=== PATIENT | male | born 1965 | race Hispanic/Latino ===

== ENCOUNTER 2018-02-23 10:09 | Emergency (ER) | payer OTHER ==
--- NOTE | 2018-02-23 10:22 | ER ---
Nurse's Notes [facility] Name: Nabor Barrow Jr Age: 53 yrs Sex: Male : 1965 Arrival Date: 02/23/2018 Time: 10:11 Bed 13 Private MD: Dexter Bravo Diagnosis: Chronic pain syndrome Presentation: 02/23 10:15 Presenting complaint: Patient states: back pain x 3 days. Pt reports history of chronic ss back pain and has had multiple images including MRI of low back. Pt reports he has ran out of his prednisone and just needs a refill to get him through till Sunday when he can followup with Dr. Farley, his PCP. Transition of care: patient was not received from another setting of care. Onset of symptoms is unknown. Initial Sepsis Screen: Does the patient meet any 2 criteria? No. Patient's initial sepsis screen is negative. Does the patient have a suspected source of infection? No. Patient's initial sepsis screen is negative. Care prior to arrival: None. 10:15 Method Of Arrival: Ambulatory ss 10:15 Acuity: INNA 5 ss Historical: - Allergies: 10:19 Aspirin; ss 10:19 azathioprine sodium; ss 10:19 Imuran; ss 10:19 Lyrica; ss 10:19 NSAIDS (Non-Steroidal Anti-Inflamma; ss - PMHx: 10:19 Arthritis; Hypertension; Kidney stones; psoriatic arthirits; stroke 2009; ss - PSHx: 10:19 L BKA; Knee surgery; shoulder sx, right; hip sx, b/l; ss - Immunization history:: Adult Immunizations up to date. - Social history:: Smoking status: Patient/guardian denies using tobacco. Screenin:30 Abuse screen: Denies threats or abuse. Denies injuries from another. Nutritional ph screening: No deficits noted. Tuberculosis screening: No symptoms or risk factors identified. Fall Risk No fall in past 12 months (0 pts). Secondary diagnosis (15 points) impaired mobility, No IV (0 pts). Ambulatory Aid- None/Bed Rest/Nurse Assist (0 pts). Gait- Impaired (20 pts.). Mental Status- Overestimates/Forgets Limitations (15 pts.). Total Milner Fall Scale indicates High Risk Score (45 or more points). Fall prevention measures have been instituted. Side Rails Up X 2 Family Present and informed to notify staff if the need to leave the bedside As available patient and family educated on Fall Prevention Program and Strategies. Assessment: 10:30 General: Appears in no apparent distress. comfortable, Behavior is calm, cooperative, ph appropriate for age. Pain: Complains of pain in back. Neuro: Level of Consciousness is awake, alert, obeys commands, Oriented to person, place, time, situation. Cardiovascular: Capillary refill < 3 seconds Patient's skin is warm and dry. Respiratory: Airway is patent Respiratory effort is even, unlabored. Derm: Skin is healthy with good turgor, Skin is pink, warm \T\ dry. Musculoskeletal: Range of motion: limited below waist. Vital Signs: 10:23 BP 139 / 84; Pulse 79; Resp 16; Temp 98.1(TE); Pulse Ox 97% on R/A; Weight 79.38 kg; ss Pain 8/10; ED Course: 10:11 Patient arrived in ED. as 10:11 Dexter Bravo DO is Private Physician. as 10:12 Boris Julian MD is Attending Physician. ps1 10:18 Triage completed. ss 10:19 Arm band placed on right wrist. ss 10:20 Dexter Bravo DO is Referral Physician. ps1 10:30 Dori Sun RN is Primary Nurse. ph 10:30 Patient has correct armband on for positive identification. Call light in reach. ph 10:30 No provider procedures requiring assistance completed. Patient did not have IV access ph during this emergency room visit. Administered Medications: No medications were administered Outcome: 10:21 Discharge ordered by . ps1 10:30 Patient left the ED. ph 10:30 Discharged to home via wheelchair, with family. ph 10:30 Condition: good 10:30 Discharge instructions given to patient, Instructed on discharge instructions, follow up and referral plans. medication usage, Demonstrated understanding of instructions, follow-up care, medications, Prescriptions given X 1. Signatures: Jasmyne Emerson Shelby, RN RN Dori Sun RN RN Boris Julian MD MD ps1
--- NOTE | 2018-02-23 10:22 | EDPHYS ---
Physician Documentation [facility] Name: Nabor Barrow Jr Age: 53 yrs Sex: Male : 1965 Arrival Date: 02/23/2018 Time: 10:11 Bed 13 Private MD: Dexter Bravo ED Physician Boris Julian HPI: 02/23 10:15 This 53 yrs old Male presents to ER via Unassigned with complaints of Back ps1 Pain, Medication Refill. 10:15 The patient presents with pain that is chronic, with no known mechanism of injury. The ps1 symptoms are located in the low back. Onset: The symptoms/episode began/occurred chroncally for long period of time. Sees Dr. Mendez. . The pain does not radiate. Associated signs and symptoms: Pertinent negatives: numbness, tingling, urinary retention. The problem was sustained from a chronic condition, the patient has known disc disease. pt is out of prednisone that he needs coverage for 3 days. 5mg bid. . Historical: - Allergies: 10:19 Aspirin; ss 10:19 azathioprine sodium; ss 10:19 Imuran; ss 10:19 Lyrica; ss 10:19 NSAIDS (Non-Steroidal Anti-Inflamma; ss - PMHx: 10:19 Arthritis; Hypertension; Kidney stones; psoriatic arthirits; stroke 2009; ss - PSHx: 10:19 L BKA; Knee surgery; shoulder sx, right; hip sx, b/l; ss - Immunization history:: Adult Immunizations up to date. - Social history:: Smoking status: Patient/guardian denies using tobacco. ROS: 10:15 Constitutional: Negative for fever, chills, and weight loss, Eyes: Negative for injury, ps1 pain, redness, and discharge, Cardiovascular: Negative for chest pain, palpitations, and edema, Respiratory: Negative for shortness of breath, cough, wheezing, and pleuritic chest pain, Abdomen/GI: Negative for abdominal pain, nausea, vomiting, diarrhea, and constipation. 10:15 MS/Extremity: Negative for injury and deformity, Skin: Negative for injury, rash, and discoloration, Neuro: Negative for headache, weakness, numbness, tingling, and seizure. 10:15 Back: Positive for pain with movement. Exam: 10:15 Constitutional: This is a well developed, well nourished patient who is awake, alert, ps1 and in no acute distress. Head/Face: Normocephalic, atraumatic. Eyes: Pupils equal round and reactive to light, extra-ocular motions intact. Lids and lashes normal. Conjunctiva and sclera are non-icteric and not injected. Chest/axilla: Normal chest wall appearance and motion. Nontender with no deformity. No lesions are appreciated. Cardiovascular: Regular rate and rhythm. No gallops, murmurs, or rubs. Normal PMI, no JVD. No pulse deficits. Respiratory: Lungs have equal breath sounds bilaterally, clear to auscultation and percussion. No rales, rhonchi or wheezes noted. No increased work of breathing, no retractions or nasal flaring. Abdomen/GI: Soft, non-tender, with normal bowel sounds. No distension or tympany. No guarding or rebound. No evidence of tenderness throughout. Skin: Warm, dry with normal turgor. Normal color with no rashes, no lesions, and no evidence of cellulitis. 10:15 Neuro: Awake and alert, GCS 15, oriented to person, place, time, and situation. Cranial nerves II-XII grossly intact. Sensory grossly intact. Psych: Awake, alert, with orientation to person, place and time. Behavior, mood, and affect are within normal limits. 10:15 Musculoskeletal/extremity: Extremities: grossly normal except: L BKA. Vital Signs: 10:23 BP 139 / 84; Pulse 79; Resp 16; Temp 98.1(TE); Pulse Ox 97% on R/A; Weight 79.38 kg; ss Pain 8/10; MDM: 10:15 Data reviewed: vital signs, nurses notes. ED course: ok'd refill per patient request ps1 for 3 days. Pt to follow up with Dr. Mendez for pain symtpoms on Sunday. . 10:21 Patient medically screened. ps1 Administered Medications: No medications were administered Disposition: 02/23/18 10:21 Discharged to Home. Impression: Chronic pain syndrome. - Condition is Stable. - Discharge Instructions: Chronic Pain. - Prescriptions for prednisone 5 mg Oral tablet - take 1 tablet by ORAL route bid; 6 tablet. - Medication Reconciliation Form, Thank You Letter, Antibiotic Education, Prescription Opioid Use form. - Follow up: Dexter Bravo DO; When: As needed; Reason: Recheck today's complaints, Continuance of care, Re-evaluation by your physician. Follow up: Emergency Department; When: As needed; Reason: Fever > 102 F, Worsening of condition. - Problem is chronic. - Symptoms are unchanged. Signatures: Joan Joaquin, WU W[employer]URN Dori Sun RN RN Boris Julian MD MD ps1
[2018-02-23 10:39] VITALS: BP 139/84; TEMP 98.1; O2SAT 97
== END 2018-02-23 10:30 | disposition home or self-care (01) ==
LOC: ER 10:09
DX: G89.4 Chronic pain syndrome (principal); Z88.6 Allergy status to analgesic agent; Z88.8 Allergy status to other drugs, medicaments and biological substances
CPT/HCPCS: 99282

== ENCOUNTER 2018-02-24 09:05 | Emergency (ER) | payer OTHER ==
--- NOTE | 2018-02-24 10:19 | ER ---
Nurse's Notes [facility] Name: Nabor Barrow Jr Age: 53 yrs Sex: Male : 1965 Arrival Date: 02/24/2018 Time: 09:06 Bed 6 Private MD: Diagnosis: Laceration without foreign body of right forearm-skin tear Presentation: 02/24 09:20 Presenting complaint: Patient states: "I passed out yesterday in my wheelchair and I sv fell out of it yesterday about 5pm and I messed up my arm." Pt has a skin tear to the right forearm. Pt stated that he's been passing out for about a year. Pt reports that he stopped taking his Morphine and Fentanyl patches about 5 days ago. Transition of care: patient was not received from another setting of care. Complicating Factors: There are no complicating factors for this patient. Onset of symptoms was February 23, 2018 at 17:00. 09:20 Method Of Arrival: Wheelchair sv 09:20 Acuity: INNA 3 sv 09:21 Initial Sepsis Screen: Does the patient meet any 2 criteria? No. Patient's initial sv sepsis screen is negative. Does the patient have a suspected source of infection? No. Patient's initial sepsis screen is negative. Care prior to arrival: None. Triage Assessment: 09:20 General: Appears in no apparent distress. comfortable, Behavior is calm, cooperative, sv appropriate for age. Pain: Complains of pain in right arm Pain does not radiate. Pain currently is 2 out of 10 on a pain scale. Pain began 1 day ago. Is continuous. EENT: No signs and/or symptoms were reported regarding the EENT system. Neuro: Level of Consciousness is awake, alert, obeys commands, Oriented to person, place, time, situation. Cardiovascular: Patient's skin is warm and dry. Respiratory: Respiratory effort is even, unlabored, Respiratory pattern is regular, symmetrical. 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 Injury Description: Laceration sustained to dorsal aspect of right forearm is superficial, skin tear is bleeding a small amount. Historical: - Allergies: 09:33 Aspirin; sv 09:33 azathioprine sodium; sv 09:33 Imuran; sv 09:33 Lyrica; sv 09:33 NSAIDS (Non-Steroidal Anti-Inflamma; sv - Home Meds: 09:33 gabapentin 400 mg Oral cap [Active]; prednisone 5 mg Oral tab once daily [Active]; sv Nexium Oral [Active]; - PMHx: 09:33 Arthritis; Hypertension; Kidney stones; psoriatic arthirits; stroke 2009; sv - PSHx: 09:33 L BKA; Knee surgery; shoulder sx, right; hip sx, b/l; sv - Immunization history:: Adult Immunizations up to date, Last tetanus immunization: up to date. - Social history:: Smoking status: Patient/guardian denies using tobacco. Screenin:34 Abuse screen: Denies threats or abuse. Denies injuries from another. Nutritional sv screening: No deficits noted. Tuberculosis screening: No symptoms or risk factors identified. Fall Risk Fall in past 12 months (25 points). Secondary diagnosis (15 points) impaired mobility, No IV (0 pts). Ambulatory Aid- None/Bed Rest/Nurse Assist (0 pts). Gait- Normal/Bed Rest/Wheelchair (0 pts) Mental Status- Oriented to own ability (0 pts). Total Milner Fall Scale indicates Low Risk Score (25-44 pts). Fall prevention measures have been instituted. Side Rails Up X 2 Placed close to Nursing Station Frequent Obs/Assesments occuring As available Patient and Family Educated on Fall Prevention Program and strategies. Assessment: 09:38 Reassessment: See triage assessment. sv 10:40 Reassessment: Patient appears in no apparent distress at this time. No changes from sv previously documented assessment. Patient and/or family updated on plan of care and expected duration. Pain level reassessed. Patient is alert, oriented x 3, equal unlabored respirations, skin warm/dry/pink. Vital Signs: 09:30 BP 127 / 81; Pulse 97; Resp 18; Temp 99.2; Pulse Ox 97% ; Weight 78.47 kg; Height 6 ft. sv 0 in. (182.88 cm); Pain 2/10; 09:30 Body Mass Index 23.46 (78.47 kg, 182.88 cm) sv ED Course: :06 Patient arrived in ED. as 09:14 Beto Oliva NP is PHCP. pm1 09:14 Eric Barcenas MD is Attending Physician. pm1 09:25 Christina Blandon RN is Primary Nurse. sv 09:32 Triage completed. sv 09:34 Nurse Practitioner and/or Physician Concrete Puddler to see patient. sv 09:34 Arm band placed on right wrist. sv 09:34 Patient has correct armband on for positive identification. Bed in low position. Call sv light in reach. Side rails up X2. Pulse ox on. NIBP on. Door closed. Head of bed elevated. 10:40 No provider procedures requiring assistance completed. Patient did not have IV access sv during this emergency room visit. Administered Medications: 10:40 Drug: Tylenol #3 (300 mg-30 mg) 2 tabs Route: PO; sv 10:40 Follow up: Response: Medication administered at discharge. sv Outcome: 10:19 Discharge ordered by MD. pm1 10:40 Patient left the ED. sv 10:40 Discharged to home via wheelchair, with family, with his own wheelchair sv 10:40 Condition: stable 10:40 Discharge instructions given to patient, family, Instructed on discharge instructions, follow up and referral plans. medication usage, Demonstrated understanding of instructions, follow-up care, medications, Prescriptions given X 1. Signatures: Christina Blandon, RN RN Jasmyne Nava Patrick, SPANISH LECTURER SPANISH LECTURER pm1
--- NOTE | 2018-02-24 10:19 | EDPHYS ---
Physician Documentation [facility] Name: Nabor Barrow Jr Age: 53 yrs Sex: Male : 1965 Arrival Date: 02/24/2018 Time: 09:06 Bed 6 Private MD: ED Physician Eric Barcenas HPI: 02/24 10:20 This 53 yrs old Male presents to ER via Wheelchair with complaints of pm1 Laceration To Arm. 10:20 The patient has a laceration occurred at home. The laceration(s) is(are) located on the pm1 dorsal aspect of right forearm. Onset: The symptoms/episode began/occurred yesterday, between 1700 to 1800. Associated signs and symptoms: Pertinent negatives: deformity, heavy bleeding, suspected foreign body. The patient has not recently seen a physician, the patient's primary care provider is Dr. Bravo. patient was using his wheel chair and fell asleep. Patient fell off his wheelchair and incurred a skin tear to his right forearm yesterday between 1700 and 1800. Patient has been falling asleep during the day during various actives for the past 1 year. Patient has had cpap machine for treatment of his daytime somnolence and sleeping but he did not want to use it.. Historical: - Allergies: 09:33 Aspirin; sv 09:33 azathioprine sodium; sv 09:33 Imuran; sv 09:33 Lyrica; sv 09:33 NSAIDS (Non-Steroidal Anti-Inflamma; sv - Home Meds: 09:33 gabapentin 400 mg Oral cap [Active]; prednisone 5 mg Oral tab once daily [Active]; sv Nexium Oral [Active]; - PMHx: 09:33 Arthritis; Hypertension; Kidney stones; psoriatic arthirits; stroke 2009; sv - PSHx: 09:33 L BKA; Knee surgery; shoulder sx, right; hip sx, b/l; sv - Immunization history:: Adult Immunizations up to date, Last tetanus immunization: up to date. - Social history:: Smoking status: Patient/guardian denies using tobacco. ROS: 10:20 Constitutional: Negative for fever, chills, and weight loss, Eyes: Negative for injury, pm1 pain, redness, and discharge, ENT: Negative for injury, pain, and discharge, Neck: Negative for injury, pain, and swelling, Cardiovascular: Negative for chest pain, palpitations, and edema, Respiratory: Negative for shortness of breath, cough, wheezing, and pleuritic chest pain, Abdomen/GI: Negative for abdominal pain, nausea, vomiting, diarrhea, and constipation, Back: Negative for injury and pain. 10:20 Neuro: Negative for headache, weakness, numbness, tingling, and seizure. 10:20 MS/extremity: Positive for of the dorsal aspect of right forearm, skin tear. 10:20 Skin: Positive for of the dorsal aspect of right forearm, skin tear. Exam: 10:20 Constitutional: This is a well developed, well nourished patient who is awake, alert, pm1 and in no acute distress. Head/Face: Normocephalic, atraumatic. Eyes: Pupils equal round and reactive to light, extra-ocular motions intact. Lids and lashes normal. Conjunctiva and sclera are non-icteric and not injected. Cornea within normal limits. Periorbital areas with no swelling, redness, or edema. ENT: Nares patent. No nasal discharge, no septal abnormalities noted. Tympanic membranes are normal and external auditory canals are clear. Oropharynx with no redness, swelling, or masses, exudates, or evidence of obstruction, uvula midline. Mucous membranes moist. Neck: Trachea midline, no thyromegaly or masses palpated, and no cervical lymphadenopathy. Supple, full range of motion without nuchal rigidity, or vertebral point tenderness. No Meningismus. Chest/axilla: Normal chest wall appearance and motion. Nontender with no deformity. No lesions are appreciated. Cardiovascular: Regular rate and rhythm with a normal S1 and S2. No gallops, murmurs, or rubs. No pulse deficits. Respiratory: Lungs have equal breath sounds bilaterally, clear to auscultation and percussion. No rales, rhonchi or wheezes noted. No increased work of breathing, no retractions or nasal flaring. Abdomen/GI: Soft, non-tender, with normal bowel sounds. No distension or tympany. No guarding or rebound. No evidence of tenderness throughout. Back: No spinal tenderness. No costovertebral tenderness. Full range of motion. 10:20 Skin: injury, skin tear present to right forearm, dorsal aspect. 10:20 Neuro: Orientation: is normal, Motor: is normal, moves all fours. Vital Signs: 09:30 BP 127 / 81; Pulse 97; Resp 18; Temp 99.2; Pulse Ox 97% ; Weight 78.47 kg; Height 6 ft. sv 0 in. (182.88 cm); Pain 2/10; 09:30 Body Mass Index 23.46 (78.47 kg, 182.88 cm) sv Laceration: 10:15 Wound Repair of 6cm ( 2.4in ) subcutaneous laceration to dorsal aspect of right pm1 forearm. Skin tear. Distal neuro/vascular/tendon intact. Wound prep: Extensive cleansing by me, Wound irrigation with saline by me, Wound explored extensively, Copious irrigation. Skin closed using Loosely approximated with steristrips. Dressed with 4x4's. Patient tolerated well. MDM: 09:14 Patient medically screened. pm1 09:38 Data reviewed: vital signs. Data interpreted: Pulse oximetry: on room air is 97 %. pm1 Interpretation: normal. 10:17 Counseling: I had a detailed discussion with the patient and/or guardian regarding: the pm1 historical points, exam findings, and any diagnostic results supporting the discharge/admit diagnosis, the need for outpatient follow up, to return to the emergency department if symptoms worsen or persist or if there are any questions or concerns that arise at home. Administered Medications: 10:40 Drug: Tylenol #3 (300 mg-30 mg) 2 tabs Route: PO; sv 10:40 Follow up: Response: Medication administered at discharge. sv Disposition: 02/25 09:17 Co-signature as Attending Physician, Eric Barcenas MD I agree with the assessment and daniele plan of care. Disposition: 02/24/18 10:19 Discharged to Home. Impression: Laceration without foreign body of right forearm - skin tear. - Condition is Stable. - Discharge Instructions: Skin Tear Care. - Prescriptions for Bactrim DS 800- 160 mg Oral Tablet - take 1 tablet by ORAL route every 12 hours for 10 days; 20 tablet. - Medication Reconciliation Form, Thank You Letter, Antibiotic Education form. - Follow up: Emergency Department; When: As needed; Reason: Worsening of condition. Follow up: Private Physician; When: 2 - 3 days; Reason: Recheck today's complaints, Continuance of care, Re-evaluation by your physician. - Problem is new. - Symptoms have improved. Signatures: Christina Blandon, WU RN Eric Louis MD MD cha Marinas, Patrick, BEARING RING ASSEMBLER BEARING RING ASSEMBLER pm1
[2018-02-24] MEDS ORDERED: CODEINE 30MG/APAP 300MG TAB ONE (10:32)
[2018-02-24 10:45] VITALS: BP 127/81; TEMP 99.2; O2SAT 97
== END 2018-02-24 10:40 | disposition home or self-care (01) ==
LOC: ER 09:05
DX: S51.811A Laceration without foreign body of right forearm, initial encounter (principal); I10 Essential (primary) hypertension; W05.0XXA Fall from non-moving wheelchair, initial encounter; Y92.9 Unspecified place or not applicable; Z89.512 Acquired absence of left leg below knee; Z86.73 Personal history of transient ischemic attack (TIA), and cerebral infarction without residual deficits
CPT/HCPCS: 99283

== ENCOUNTER 2018-10-05 14:47 | Emergency (ER) | payer OTHER ==
--- NOTE | 2018-10-05 15:08 | ER ---
Nurse's Notes [facility] Name: Nabor Barrow Jr Age: 53 yrs Sex: Male : 1965 Arrival Date: 10/05/2018 Time: 14:51 Bed 30 Private MD: Dexter Bravo Diagnosis: Encounter for issue of repeat prescription Presentation: 10/05 14:58 Presenting complaint: Patient states: Im just here because I ran out of my prednisone sg and is not in his office to refill my prescription, If i dont have that medication I wont be able to move. Transition of care: patient was not received from another setting of care. Onset of symptoms was October 05, 2018. Risk Assessment: Do you want to hurt yourself or someone else? Patient reports no desire to harm self or others. Initial Sepsis Screen: Does the patient meet any 2 criteria? No. Patient's initial sepsis screen is negative. Does the patient have a suspected source of infection? No. Patient's initial sepsis screen is negative. Care prior to arrival: None. 14:58 Method Of Arrival: Wheelchair sg 14:58 Acuity: INNA 5 sg Triage Assessment: 15:16 General: Appears in no apparent distress. comfortable, Behavior is calm, cooperative. mg2 Historical: - Allergies: 14:59 Aspirin; sg 14:59 azathioprine sodium; sg 14:59 Imuran; sg 14:59 Lyrica; sg 14:59 NSAIDS (Non-Steroidal Anti-Inflamma; sg - Home Meds: 15:17 dilaudid 8 mg every 4 hours [Active]; Fentanyl Patch Topical [Active]; gabapentin 400 mg2 mg Oral cap [Active]; Nexium Oral [Active]; prednisone 5 mg Oral tab once daily [Active]; - PMHx: 14:59 Arthritis; Hypertension; Kidney stones; psoriatic arthirits; stroke 2009; sg - PSHx: 14:59 L BKA; Knee surgery; shoulder sx, right; hip sx, b/l; sg - Immunization history:: Adult Immunizations up to date. - Social history:: Smoking status: Patient/guardian denies using tobacco. - Ebola Screening: : Patient negative for fever greater than or equal to 101.5 degrees Fahrenheit, and additional compatible Ebola Virus Disease symptoms Patient denies exposure to infectious person Patient denies travel to an Ebola-affected area in the 21 days before illness onset No symptoms or risks identified at this time. - Family history:: not pertinent. Screenin:15 Abuse screen: Denies threats or abuse. Denies injuries from another. Nutritional mg2 screening: No deficits noted. Tuberculosis screening: No symptoms or risk factors identified. Fall Risk Ambulatory Aid- None/Bed Rest/Nurse Assist (0 pts). Assessment: 15:15 Reassessment: No changes from previously documented assessment. Reassessment: patient mg2 came only for refill of medication. Pain: Denies pain. Vital Signs: 15:00 BP 132 / 70; Pulse 79; Resp 17; Pulse Ox 97% on R/A; Pain 0/10; sg ED Course: 14:51 Patient arrived in ED. sb2 14:51 Dexter Bravo DO is Private Physician. 2 14:59 Triage completed. sg 14:59 Arm band placed on. 15:02 Eric Barcenas MD is Attending Physician. [facility] 15:05 Dexter Bravo DO is Referral Physician. [facility] 15:06 Garth Summers, WU is Primary Nurse. mg2 15:15 No provider procedures requiring assistance completed. Patient did not have IV access mg2 during this emergency room visit. 15:17 Patient has correct armband on for positive identification. mg2 Administered Medications: 15:14 Drug: predniSONE 5 mg Route: PO; mg2 15:14 Follow up: Response: No adverse reaction; Medication administered at discharge. mg2 Outcome: 15:08 Discharge ordered by . daniele 15:16 Discharged to home via wheelchair. mg2 15:16 Condition: stable 15:16 Discharge instructions given to patient, Instructed on discharge instructions, follow up and referral plans. medication usage, Demonstrated understanding of instructions, follow-up care, medications, Prescriptions given X 1. 15:17 Patient left the ED. mg2 Signatures: Jose Escalona RN RN Eric Barcenas MD MD cha Billeau, Sheri 2 Garth Summers RN RN mg2
--- NOTE | 2018-10-05 15:08 | EDPHYS ---
Physician Documentation [facility] Name: Nabor Barrow Jr Age: 53 yrs Sex: Male : 1965 Arrival Date: 10/05/2018 Time: 14:51 Bed 30 Private MD: Dexter Bravo ED Physician Eric Barcenas HPI: 10/05 15:03 This 53 yrs old Male presents to ER via Wheelchair with complaints of daniele Medication Refill. 15:03 The patient presents to the emergency department requesting refill(s) for: predisone. daniele The patient chronically suffers from hypertension, arthritis,psoriatic. The patient has experienced similar episodes in the past, multiple times. Historical: - Allergies: 14:59 Aspirin; sg 14:59 azathioprine sodium; sg 14:59 Imuran; sg 14:59 Lyrica; sg 14:59 NSAIDS (Non-Steroidal Anti-Inflamma; sg - Home Meds: 15:17 dilaudid 8 mg every 4 hours [Active]; Fentanyl Patch Topical [Active]; gabapentin 400 mg2 mg Oral cap [Active]; Nexium Oral [Active]; prednisone 5 mg Oral tab once daily [Active]; - PMHx: 14:59 Arthritis; Hypertension; Kidney stones; psoriatic arthirits; stroke 2009; sg - PSHx: 14:59 L BKA; Knee surgery; shoulder sx, right; hip sx, b/l; sg - Immunization history:: Adult Immunizations up to date. - Social history:: Smoking status: Patient/guardian denies using tobacco. - Ebola Screening: : Patient negative for fever greater than or equal to 101.5 degrees Fahrenheit, and additional compatible Ebola Virus Disease symptoms Patient denies exposure to infectious person Patient denies travel to an Ebola-affected area in the 21 days before illness onset No symptoms or risks identified at this time. - Family history:: not pertinent. ROS: 15:03 Constitutional: Negative for fever, chills, and weight loss, Eyes: Negative for injury, daniele pain, redness, and discharge, ENT: Negative for injury, pain, and discharge, Neck: Negative for injury, pain, and swelling, Cardiovascular: Negative for chest pain, palpitations, and edema, Respiratory: Negative for shortness of breath, cough, wheezing, and pleuritic chest pain, Abdomen/GI: Negative for abdominal pain, nausea, vomiting, diarrhea, and constipation, Back: Negative for injury and pain, : Negative for injury, bleeding, discharge, and swelling, Skin: Negative for injury, rash, and discoloration, Neuro: Negative for headache, weakness, numbness, tingling, and seizure, Psych: Negative for depression, anxiety, suicide ideation, homicidal ideation, and hallucinations, Allergy/Immunology: Negative for hives, rash, and allergies, Endocrine: Negative for neck swelling, polydipsia, polyuria, polyphagia, and marked weight changes, Hematologic/Lymphatic: Negative for swollen nodes, abnormal bleeding, and unusual bruising. 15:03 MS/extremity: Positive for decreased range of motion, pain, usual. Exam: 15:03 Constitutional: This is a well developed, well nourished patient who is awake, alert, daniele and in no acute distress. Head/Face: Normocephalic, atraumatic. Eyes: Pupils equal round and reactive to light, extra-ocular motions intact. Lids and lashes normal. Conjunctiva and sclera are non-icteric and not injected. Cornea within normal limits. Periorbital areas with no swelling, redness, or edema. ENT: Nares patent. No nasal discharge, no septal abnormalities noted. Tympanic membranes are normal and external auditory canals are clear. Oropharynx with no redness, swelling, or masses, exudates, or evidence of obstruction, uvula midline. Mucous membranes moist. Neck: Trachea midline, no thyromegaly or masses palpated, and no cervical lymphadenopathy. Supple, full range of motion without nuchal rigidity, or vertebral point tenderness. No Meningismus. Chest/axilla: Normal chest wall appearance and motion. Nontender with no deformity. No lesions are appreciated. Cardiovascular: Regular rate and rhythm with a normal S1 and S2. No gallops, murmurs, or rubs. Normal PMI, no JVD. No pulse deficits. Respiratory: Lungs have equal breath sounds bilaterally, clear to auscultation and percussion. No rales, rhonchi or wheezes noted. No increased work of breathing, no retractions or nasal flaring. Abdomen/GI: Soft, non-tender, with normal bowel sounds. No distension or tympany. No guarding or rebound. No evidence of tenderness throughout. Back: No spinal tenderness. No costovertebral tenderness. Full range of motion. Skin: Warm, dry with normal turgor. Normal color with no rashes, no lesions, and no evidence of cellulitis. MS/ Extremity: Pulses equal, no cyanosis. Neurovascular intact. Full, normal range of motion. Neuro: Awake and alert, GCS 15, oriented to person, place, time, and situation. Cranial nerves II-XII grossly intact. Motor strength 5/5 in all extremities. Sensory grossly intact. Cerebellar exam normal. Normal gait. Psych: Awake, alert, with orientation to person, place and time. Behavior, mood, and affect are within normal limits. Vital Signs: 15:00 BP 132 / 70; Pulse 79; Resp 17; Pulse Ox 97% on R/A; Pain 0/10; sg MDM: 15:02 Patient medically screened. [facility] Administered Medications: 15:14 Drug: predniSONE 5 mg Route: PO; mg2 15:14 Follow up: Response: No adverse reaction; Medication administered at discharge. mg2 Disposition: 10/05/18 15:08 Discharged to Home. Impression: Encounter for issue of repeat prescription. - Condition is Stable. - Prescriptions for prednisone 5 mg Oral tablet - take 1 tablet by ORAL route 2 times per day; 30 tablet. - Medication Reconciliation Form, Thank You Letter, Antibiotic Education, Prescription Opioid Use form. - Follow up: Dexter Bravo DO; When: 2 - 3 days; Reason: Recheck today's complaints, Continuance of care, Re-evaluation by your physician. - Problem is new. - Symptoms have improved. Signatures: Jose Escalona RN RN Eric Barcenas MD MD cha Gardose, Michele RN RN mg2 Corrections: (The following items were deleted from the chart) 15:17 15:08 10/05/2018 15:08 Discharged to Home. Impression: Encounter for issue of repeat mg2 prescription. Condition is Stable. Forms are Medication Reconciliation Form, Thank You Letter, Antibiotic Education, Prescription Opioid Use. Follow up: Dexter Bravo; When: 2 - 3 days; Reason: Recheck today's complaints, Continuance of care, Re-evaluation by your physician. Problem is new. Symptoms have improved. [facility]
[2018-10-05] MEDS ORDERED: predniSONE 10 MG TAB ONE (15:17)
[2018-10-05 16:21] VITALS: BP 132/70; O2SAT 97
== END 2018-10-05 15:17 | disposition home or self-care (01) ==
LOC: ER 14:47
DX: Z76.0 Encounter for issue of repeat prescription (principal); I10 Essential (primary) hypertension; L40.50 Arthropathic psoriasis, unspecified; Z79.52 Long term (current) use of systemic steroids; Z79.891 Long term (current) use of opiate analgesic; Z79.899 Other long term (current) drug therapy
CPT/HCPCS: 99283; J7512

== ENCOUNTER 2018-11-05 11:28 | Emergency (ER) | payer OTHER ==
--- NOTE | 2018-11-05 11:53 | ER ---
Nurse's Notes [facility] Name: Nabor Barrow Jr Age: 53 yrs Sex: Male : 1965 Arrival Date: 11/05/2018 Time: 11:31 Bed 23 Private MD: Dexter Bravo Diagnosis: Patient's other noncompliance with medication regimen Presentation: 11/05 11:48 Presenting complaint: Patient states: "I'm feeling tired. I've been stressed and I ran aj1 out of my medication. I've been out of it for 7 days. I tried calling my doctor but I can't get a call back." Reports that he is out of Prednisone 5mg PO daily. Transition of care: patient was not received from another setting of care. Onset of symptoms was November 05, 2018. Risk Assessment: Do you want to hurt yourself or someone else? Patient reports no desire to harm self or others. Initial Sepsis Screen: Does the patient meet any 2 criteria? No. Patient's initial sepsis screen is negative. Does the patient have a suspected source of infection? No. Patient's initial sepsis screen is negative. Care prior to arrival: None. 11:48 Method Of Arrival: Wheelchair aj1 11:48 Acuity: INNA 5 aj1 Triage Assessment: 11:50 General: Appears in no apparent distress. comfortable, Behavior is calm, cooperative, aj1 appropriate for age. Pain: Complains of pain in back Pain currently is 7 out of 10 on a pain scale. Historical: - Allergies: 11:50 Aspirin; aj1 11:50 azathioprine sodium; aj1 11:50 Imuran; aj1 11:50 Lyrica; aj1 11:50 NSAIDS (Non-Steroidal Anti-Inflamma; aj1 - Home Meds: 11:50 gabapentin 400 mg Oral cap [Active]; Nexium Oral [Active]; prednisone 5 mg Oral tab aj1 once daily [Active]; - PMHx: 11:50 Arthritis; Hypertension; Kidney stones; psoriatic arthirits; stroke 2009; Chronic pain; aj1 - PSHx: 11:50 left BKA; aj1 - Immunization history:: Flu vaccine is not up to date. - Social history:: Smoking status: Patient/guardian denies using tobacco. - Ebola Screening: : Patient denies travel to an Ebola-affected area in the 21 days before illness onset. Screenin:52 Abuse screen: Denies threats or abuse. Denies injuries from another. Nutritional aj1 screening: No deficits noted. Tuberculosis screening: No symptoms or risk factors identified. 12:26 Fall Risk None identified. aj1 Assessment: 11:52 General: Appears in no apparent distress. comfortable, Behavior is calm, cooperative, aj1 appropriate for age. Pain: Complains of pain in back Pain currently is 7 out of 10 on a pain scale. Neuro: Level of Consciousness is awake, alert, obeys commands. Cardiovascular: Patient's skin is warm and dry. Respiratory: Airway is patent Respiratory effort is even, unlabored, Respiratory pattern is regular, symmetrical. GI: No signs and/or symptoms were reported involving the gastrointestinal system. : No signs and/or symptoms were reported regarding the genitourinary system. EENT: No signs and/or symptoms were reported regarding the EENT system. Derm: No signs and/or symptoms reported regarding the dermatologic system. Skin is pink, warm \\T\\ dry. normal. Musculoskeletal: Amputation of Other: left BKA. Vital Signs: 11:50 BP 110 / 86; Pulse 90; Resp 18; Temp 98.5; Pulse Ox 97% on R/A; Weight 74.84 kg (R); aj1 Height 6 ft. 0 in. (182.88 cm) (R); Pain 7/10; 11:50 Body Mass Index 22.38 (74.84 kg, 182.88 cm) aj1 ED Course: 11:31 Patient arrived in ED. mr 11:31 Dexter Bravo DO is Private Physician. mr 11:41 Aria Main [facility]C [facility]. snw 11:41 Tony Roberto MD is Attending Physician. snw 11:48 Fallon Stone RN is Primary Nurse. aj1 11:49 Triage completed. aj1 11:50 Dexter Bravo DO is Referral Physician. snw 11:50 Arm band placed on Patient placed in an exam room. aj1 11:52 Patient has correct armband on for positive identification. Bed in low position. Call aj1 light in reach. Side rails up X 1. 11:52 No provider procedures requiring assistance completed. aj1 12:26 Patient did not have IV access during this emergency room visit. aj1 Administered Medications: No medications were administered Outcome: 11:53 Discharge ordered by MD. briones 12:26 Discharged to home via wheelchair. aj1 12: Condition: good 12:26 Discharge instructions given to patient, Instructed on discharge instructions, follow up and referral plans. medication usage, Demonstrated understanding of instructions, follow-up care, medications, Prescriptions given X 1. 12:26 Patient left the ED. aj1 Signatures: Fallon Stone RN RN aj1 Aria Main, SEROLOGY TECHNICIAN-C SEROLOGY TECHNICIAN-Csnw Dina Tam mr
--- NOTE | 2018-11-05 11:53 | EDPHYS ---
Physician Documentation [facility] Name: Nabor Barrow Jr Age: 53 yrs Sex: Male : 1965 Arrival Date: 11/05/2018 Time: 11:31 Bed 23 Private MD: Dexter Bravo ED Physician Tony Roberto HPI: 11/05 11:58 This 53 yrs old Male presents to ER via Wheelchair with complaints of snw Medication Refill. 11:58 The patient presents to the emergency department requesting refill(s) for: Prednisone. snw The patient chronically suffers from psoriatic arthritis. The patient has experienced similar episodes in the past. The patient has not recently seen a physician. pt states he has been trying to contact his PCP x 5 days. Historical: - Allergies: 11:50 Aspirin; aj1 11:50 azathioprine sodium; aj1 11:50 Imuran; aj1 11:50 Lyrica; aj1 11:50 NSAIDS (Non-Steroidal Anti-Inflamma; aj1 - Home Meds: 11:50 gabapentin 400 mg Oral cap [Active]; Nexium Oral [Active]; prednisone 5 mg Oral tab aj1 once daily [Active]; - PMHx: 11:50 Arthritis; Hypertension; Kidney stones; psoriatic arthirits; stroke 2010; Chronic pain; aj1 - PSHx: 11:50 left BKA; aj1 - Immunization history:: Flu vaccine is not up to date. - Social history:: Smoking status: Patient/guardian denies using tobacco. - Ebola Screening: : Patient denies travel to an Ebola-affected area in the 21 days before illness onset. ROS: 11:57 Constitutional: Negative for fever, chills, and weight loss, Eyes: Negative for injury, snw pain, redness, and discharge, ENT: Negative for injury, pain, and discharge, Neck: Negative for injury, pain, and swelling, Cardiovascular: Negative for chest pain, palpitations, and edema, Respiratory: Negative for shortness of breath, cough, wheezing, and pleuritic chest pain, Abdomen/GI: Negative for abdominal pain, nausea, vomiting, diarrhea, and constipation, Back: Negative for injury and pain, : Negative for injury, bleeding, discharge, and swelling, Skin: Negative for injury, rash, and discoloration, Neuro: Negative for headache, weakness, numbness, tingling, and seizure. 11:57 MS/extremity: Positive for pain, of the joints. Exam: 11:55 Constitutional: This is a well developed, well nourished patient who is awake, alert, snw and in no acute distress. 11:55 Eyes: Pupils equal round and reactive to light, extra-ocular motions intact. Lids and lashes normal. Conjunctiva and sclera are non-icteric and not injected. Cornea within normal limits. Periorbital areas with no swelling, redness, or edema. ENT: Nares patent. No nasal discharge, no septal abnormalities noted. Tympanic membranes are normal and external auditory canals are clear. Oropharynx with no redness, swelling, or masses, exudates, or evidence of obstruction, uvula midline. Mucous membranes moist. Neck: Trachea midline, no thyromegaly or masses palpated, and no cervical lymphadenopathy. Supple, full range of motion without nuchal rigidity, or vertebral point tenderness. No Meningismus. Chest/axilla: Normal chest wall appearance and motion. Nontender with no deformity. No lesions are appreciated. Cardiovascular: Regular rate and rhythm with a normal S1 and S2. No gallops, murmurs, or rubs. Normal PMI, no JVD. No pulse deficits. Respiratory: Lungs have equal breath sounds bilaterally, clear to auscultation and percussion. No rales, rhonchi or wheezes noted. No increased work of breathing, no retractions or nasal flaring. Abdomen/GI: Soft, non-tender, with normal bowel sounds. No distension or tympany. No guarding or rebound. No evidence of tenderness throughout. Back: No spinal tenderness. No costovertebral tenderness. Full range of motion. Neuro: Awake and alert, GCS 15, oriented to person, place, time, and situation. Cranial nerves II-XII grossly intact. Motor strength 5/5 in all extremities. Sensory grossly intact. Cerebellar exam normal. Normal gait. Psych: Awake, alert, with orientation to person, place and time. Behavior, mood, and affect are within normal limits. 11:55 Head/face: Noted is erythema, that is moderate, of the facial. 11:55 Musculoskeletal/extremity: Extremities: edema and chronic misalignment of digits of hands, left BKA, Circulation is intact in all extremities. Vital Signs: 11:50 BP 110 / 86; Pulse 90; Resp 18; Temp 98.5; Pulse Ox 97% on R/A; Weight 74.84 kg (R); aj1 Height 6 ft. 0 in. (182.88 cm) (R); Pain 7/10; 11:50 Body Mass Index 22.38 (74.84 kg, 182.88 cm) aj1 MDM: 11:41 Patient medically screened. snw 11:57 Data reviewed: vital signs, nurses notes. Data interpreted: Pulse oximetry: on room air snw is 94 %. Interpretation: normal. Counseling: I had a detailed discussion with the patient and/or guardian regarding: the historical points, exam findings, and any diagnostic results supporting the discharge/admit diagnosis, the presence of at least one elevated blood pressure reading (>120/80) during this emergency department visit, the need for outpatient follow up, to return to the emergency department if symptoms worsen or persist or if there are any questions or concerns that arise at home. Special discussion: I have referred the patient to see his PCP for further evaluation of high blood pressure. Based on the history and exam findings, there is no indication for further emergent testing or inpatient evaluation. I discussed with the patient/guardian the need to see the funeral director/embalmer/owner for further evaluation of the symptoms. I discussed with the patient/guardian the need to see the primary care provider for further evaluation of the symptoms. Administered Medications: No medications were administered Disposition: 14:41 Co-signature as Attending Physician, Tony Roberto MD I agree with the assessment and kdr plan of care. Disposition: 11/05/18 11:53 Discharged to Home. Impression: Patient's other noncompliance with medication regimen. - Condition is Stable. - Discharge Instructions: Medicine Refill at the Emergency Department. - Prescriptions for prednisone 5 mg Oral tablet - take 1 tablet by ORAL route 2 times per day; 20 tablet. - Medication Reconciliation Form, Thank You Letter, Antibiotic Education, Prescription Opioid Use form. - Follow up: Dexter Bravo DO; When: Tomorrow; Reason: Recheck today's complaints, Continuance of care, Re-evaluation by your physician. Follow up: Emergency Department; When: As needed; Reason: Worsening of condition. Signatures: Fallon Stone RN RN aj1 Tony Roberto MD MD kdr Therrien, Shelly, LEÓN-C MERCHANDISE EXAMINER-Csnw Corrections: (The following items were deleted from the chart) 12:26 11:53 11/05/2018 11:53 Discharged to Home. Impression: Patient's other noncompliance aj1 with medication regimen. Condition is Stable. Forms are Medication Reconciliation Form, Thank You Letter, Antibiotic Education, Prescription Opioid Use. Follow up: Dexter Bravo; When: Tomorrow; Reason: Recheck today's complaints, Continuance of care, Re-evaluation by your physician. Follow up: Emergency Department; When: As needed; Reason: Worsening of condition. snw
[2018-11-05 12:36] VITALS: BP 110/86; TEMP 98.5; O2SAT 97
== END 2018-11-05 12:26 | disposition home or self-care (01) ==
LOC: ER 11:28
DX: Z76.0 Encounter for issue of repeat prescription (principal); Z79.82 Long term (current) use of aspirin
CPT/HCPCS: 99282

== ENCOUNTER 2019-01-04 10:00 | Emergency (ER) | payer OTHER ==
--- NOTE | 2019-01-04 11:07 | RAD REPORT ---
EXAM DESCRIPTION: Spring Perez And Radha (2 Views)01/04/2019 11:01 am CLINICAL HISTORY: Cough COMPARISON: November 2017 FINDINGS: The lungs appear clear of acute infiltrate. The heart is normal size. Patient has known osteoporotic compression fractures of the thoracic spine. IMPRESSION: No acute abnormalities displayed
--- NOTE | 2019-01-04 11:17 | EDPHYS ---
Physician Documentation [facility] Name: Nabor Barrow Jr Age: 53 yrs Sex: Male : 1965 Arrival Date: 01/04/2019 Time: 10:03 Bed 15 Private MD: Dexter Bravo ED Physician Ita Fan HPI: 01/04 11:04 This 53 yrs old Male presents to ER via Wheelchair with complaints of Cough, pm1 Congestion. 11:04 The patient or guardian reports cough, with productive sputum, that is white. Onset: pm1 The symptoms/episode began/occurred this morning. Modifying factors: The symptoms are alleviated by nothing, the symptoms are aggravated by nothing. Associated signs and symptoms: Pertinent positives: rhinorrhea, sore throat, Body aches , Pertinent negatives: chest pain, diarrhea, ear ache, fever, vomiting. The patient has been recently seen by a physician: Dr. Madrid, had EGD performed yesterday. Patient's mother with URI and he was in the car yesterday with her coughing. Believes that he caught her URI. Historical: - Allergies: 10:20 Aspirin; ch 10:20 azathioprine sodium; ch 10:20 Imuran; ch 10:20 Lyrica; ch 10:20 NSAIDS (Non-Steroidal Anti-Inflamma; ch - PMHx: 10:20 Arthritis; Chronic pain; Hypertension; Kidney stones; psoriatic arthirits; stroke 2009; ch - PSHx: 10:20 left BKA; ch - Immunization history:: Adult Immunizations up to date, Flu vaccine is not up to date. - Social history:: Smoking status: Patient/guardian denies using tobacco, Patient/guardian denies using alcohol, street drugs. - Ebola Screening: : Patient negative for fever greater than or equal to 101.5 degrees Fahrenheit, and additional compatible Ebola Virus Disease symptoms Patient denies exposure to infectious person Patient denies travel to an Ebola-affected area in the 21 days before illness onset No symptoms or risks identified at this time. ROS: 11:04 Eyes: Negative for injury, pain, redness, and discharge, ENT: Negative for injury, pm1 pain, and discharge, Neck: Negative for injury, pain, and swelling, Cardiovascular: Negative for chest pain, palpitations, and edema. 11:04 Abdomen/GI: Negative for abdominal pain, nausea, vomiting, diarrhea, and constipation, Back: Negative for injury and pain. 11:04 : Negative for injury, bleeding, discharge, and swelling, MS/Extremity: Negative for injury and deformity, Skin: Negative for injury, rash, and discoloration, Neuro: Negative for headache, weakness, numbness, tingling, and seizure. 11:04 Constitutional: Positive for body aches, weight loss, Negative for chills, fever. 11:04 Respiratory: Positive for cough, Negative for shortness of breath, wheezing. Exam: 11:04 Constitutional: This is a well developed, well nourished patient who is awake, alert, pm1 and in no acute distress. Head/Face: Normocephalic, atraumatic. Eyes: Pupils equal round and reactive to light, extra-ocular motions intact. Lids and lashes normal. Conjunctiva and sclera are non-icteric and not injected. Cornea within normal limits. Periorbital areas with no swelling, redness, or edema. ENT: Nares patent. No nasal discharge, no septal abnormalities noted. Tympanic membranes are normal and external auditory canals are clear. Oropharynx with no redness, swelling, or masses, exudates, or evidence of obstruction, uvula midline. Mucous membranes moist. Neck: Trachea midline, no thyromegaly or masses palpated, and no cervical lymphadenopathy. Supple, full range of motion without nuchal rigidity, or vertebral point tenderness. No Meningismus. Chest/axilla: Normal chest wall appearance and motion. Nontender with no deformity. No lesions are appreciated. Cardiovascular: Regular rate and rhythm with a normal S1 and S2. No gallops, murmurs, or rubs. Normal PMI, no JVD. No pulse deficits. Respiratory: Lungs have equal breath sounds bilaterally, clear to auscultation and percussion. No rales, rhonchi or wheezes noted. No increased work of breathing, no retractions or nasal flaring. Abdomen/GI: Soft, non-tender, with normal bowel sounds. No distension or tympany. No guarding or rebound. No evidence of tenderness throughout. Back: No spinal tenderness. No costovertebral tenderness. Full range of motion. Skin: Warm, dry with normal turgor. Normal color with no rashes, no lesions, and no evidence of cellulitis. MS/ Extremity: Pulses equal, no cyanosis. Neurovascular intact. Full, normal range of motion. 11:04 Neuro: Orientation: is normal, Motor: is normal, moves all fours. Vital Signs: 10:20 BP 107 / 75; Pulse 102; Resp 20; Temp 98.2(O); Pulse Ox 99% on R/A; Weight 56.7 kg; ch Height 6 ft. (182.88 cm); Pain 8/10; 11:40 BP 110 / 58; Pulse 86; Resp 14; Temp 98.8; Pulse Ox 99% on R/A; Pain 6/10; ch 10:20 Body Mass Index 16.95 (56.70 kg, 182.88 cm) ch MDM: 10:16 Patient medically screened. pm1 11:15 Data reviewed: vital signs. Data interpreted: Pulse oximetry: on room air is 99 %. pm1 Interpretation: normal. Counseling: I had a detailed discussion with the patient and/or guardian regarding: the historical points, exam findings, and any diagnostic results supporting the discharge/admit diagnosis, lab results, radiology results, the need for outpatient follow up, to return to the emergency department if symptoms worsen or persist or if there are any questions or concerns that arise at home. 01/04 10:16 Order name: Flu; Complete Time: 11:04 pm1 01/04 10:16 Order name: Strep; Complete Time: 11:04 pm1 01/04 10:37 Order name: Chest Pa And Lat (2 Views) XRAY; Complete Time: 11:13 pm1 01/04 11:04 Order name: Throat Culture EDMS Administered Medications: No medications were administered Disposition: 17:52 Co-signature as Attending Physician, Ita Fan MD. ma2 Disposition: 01/04/19 11:16 Discharged to Home. Impression: Acute upper respiratory infection, unspecified. - Condition is Stable. - Discharge Instructions: Antibiotic Resistance, Upper Respiratory Infection, Adult, Viral Respiratory Infection. - Medication Reconciliation Form, Thank You Letter, Antibiotic Education, Prescription Opioid Use form. - Follow up: Emergency Department; When: As needed; Reason: Worsening of condition. Follow up: Private Physician; When: 2 - 3 days; Reason: Recheck today's complaints, Continuance of care, Re-evaluation by your physician. - Problem is new. - Symptoms have improved. Signatures: Dispatcher [employer] EDCarolyne Cleveland, [facility] RN ch Beto Oliva, ADOPTION COORDINATOR ADOPTION COORDINATOR pm1 Ita Fan MD MD ma2 Corrections: (The following items were deleted from the chart) 11:44 11:16 01/04/2019 11:16 Discharged to Home. Impression: Acute upper respiratory ch infection, unspecified. Condition is Stable. Forms are Medication Reconciliation Form, Thank You Letter, Antibiotic Education, Prescription Opioid Use. Follow up: Emergency Department; When: As needed; Reason: Worsening of condition. Follow up: Private Physician; When: 2 - 3 days; Reason: Recheck today's complaints, Continuance of care, Re-evaluation by your physician. Problem is new. Symptoms have improved. pm1
--- NOTE | 2019-01-04 11:17 | ER ---
Nurse's Notes [facility] Name: Nabor Barrow Jr Age: 53 yrs Sex: Male : 1965 Arrival Date: 01/04/2019 Time: 10:03 Bed 15 Private MD: Dexter Bravo Diagnosis: Acute upper respiratory infection, unspecified Presentation: 01/04 10:17 Presenting complaint: Patient states: had a scope yesterday by dr. Madrid, today feels ch like he is sick, woke up with body aches, cough, congestion, white and clear phlem, sore throat. denies fever at home. Transition of care: patient was not received from another setting of care. Onset of symptoms was January 04, 2019 at 06:00. Risk Assessment: Do you want to hurt yourself or someone else? Patient reports no desire to harm self or others. Initial Sepsis Screen: Does the patient meet any 2 criteria? No. Patient's initial sepsis screen is negative. Does the patient have a suspected source of infection? No. Patient's initial sepsis screen is negative. Care prior to arrival: None. 10:17 Method Of Arrival: Wheelchair 10:17 Acuity: INNA 3 ch Triage Assessment: 10:20 General: Appears in no apparent distress. comfortable, Behavior is calm, cooperative, ch appropriate for age. Pain: Complains of pain in head, throat, chest, abdomen, pelvis, right arm, left arm, right leg, left leg, back of head, back of neck, back of left arm, back of right arm, posterior chest, back of left leg, back of right leg and back Pain currently is 6 out of 10 on a pain scale. Pain began suddenly. EENT: Throat is reddened has enlarged tonsils bilaterally Reports nasal congestion nasal discharge pain when swallowing. Neuro: No deficits noted. Cardiovascular: No deficits noted. Respiratory: Reports cough that is productive, Airway is patent Respiratory effort is even, unlabored, Breath sounds are clear bilaterally. GI: No signs and/or symptoms were reported involving the gastrointestinal system. Abdomen is flat, non-distended, Bowel sounds present X 4 quads. Abd is soft and non tender X 4 quads. Derm: Skin is pink, warm \T\ dry. Musculoskeletal: No signs and/or symptoms reported regarding the musculoskeletal system. Amputation of pt has bka Circulation, motion, and sensation intact. Capillary refill < 3 seconds, in bilateral fingers. Range of motion: intact in all extremities. Historical: - Allergies: 10:20 Aspirin; ch 10:20 azathioprine sodium; ch 10:20 Imuran; ch 10:20 Lyrica; ch 10:20 NSAIDS (Non-Steroidal Anti-Inflamma; ch - PMHx: 10:20 Arthritis; Chronic pain; Hypertension; Kidney stones; psoriatic arthirits; stroke 2009; ch - PSHx: 10:20 left BKA; ch - Immunization history:: Adult Immunizations up to date, Flu vaccine is not up to date. - Social history:: Smoking status: Patient/guardian denies using tobacco, Patient/guardian denies using alcohol, street drugs. - Ebola Screening: : Patient negative for fever greater than or equal to 101.5 degrees Fahrenheit, and additional compatible Ebola Virus Disease symptoms Patient denies exposure to infectious person Patient denies travel to an Ebola-affected area in the 21 days before illness onset No symptoms or risks identified at this time. Screenin:24 Abuse screen: Denies threats or abuse. Denies injuries from another. Nutritional ch screening: No deficits noted. Tuberculosis screening: No symptoms or risk factors identified. Fall Risk None identified. Assessment: 10:24 Reassessment: Patient appears in no apparent distress at this time. Patient and/or ch family updated on plan of care and expected duration. Pain level reassessed. Patient is alert, oriented x 3, equal unlabored respirations, skin warm/dry/pink. Cardiovascular: Heart tones S1 S2 present Capillary refill < 3 seconds Clubbing of nail beds is present JVD is present Patient's skin is warm and dry. Pulses are all present. pt has bka L leg Edema is absent. Rhythm is regular. Respiratory: Airway is patent Respiratory effort is even, unlabored, Breath sounds are clear bilaterally. GI: No signs and/or symptoms were reported involving the gastrointestinal system. Derm: Skin is pink, warm \T\ dry. pt skin is slightly pale and januncied, pt states that is his normal. Vital Signs: 10:20 BP 107 / 75; Pulse 102; Resp 20; Temp 98.2(O); Pulse Ox 99% on R/A; Weight 56.7 kg; ch Height 6 ft. (182.88 cm); Pain 8/10; 11:40 BP 110 / 58; Pulse 86; Resp 14; Temp 98.8; Pulse Ox 99% on R/A; Pain 6/10; ch 10:20 Body Mass Index 16.95 (56.70 kg, 182.88 cm) ED Course: 10:03 Patient arrived in ED. mr 10:03 Dexter Bravo, is Private Physician. mr 10:05 Carolyne Sanchez RN is Primary Nurse. 10:09 Beto Oliva NP is [facility]. pm1 10:10 Ita Fan MD is Attending Physician. pm1 10:19 Triage completed. 10:20 Arm band placed on left wrist. Patient placed in an exam room, on a stretcher, on pulse oximetry. 10:24 No apparent distress. Resting quietly. ch 10:24 Patient has correct armband on for positive identification. Placed in gown. Bed in low ch position. Call light in reach. Side rails up X 1. Adult w/ patient. Pulse ox on. NIBP on. 10:24 No provider procedures requiring assistance completed. 10:35 Strep Sent. 10:35 Flu Sent. ch 10:49 Patient moved to radiology via wheelchair. kp1 10:55 X-ray completed. Patient tolerated procedure well. kp1 11:00 Chest Pa And Lat (2 Views) XRAY In Process Unspecified. EDMS 11:01 Patient moved back from radiology. kp1 13:52 Patient did not have IV access during this emergency room visit. Administered Medications: No medications were administered Outcome: 11:16 Discharge ordered by . pm1 11:40 Discharged to home via wheelchair, with family. 11:40 Condition: stable 11:40 Discharge instructions given to patient, Instructed on discharge instructions, follow up and referral plans. Demonstrated understanding of instructions, follow-up care. 11:44 Patient left the ED. Signatures: Dispatcher [employer] EDGA Carolyne Sanchez RN RN Dina Tam mr Beto Oliva NP MARKETING CLERK pm1 Tong Lori kp1
[2019-01-04 12:13] VITALS: BP 107/75; TEMP 98.2; O2SAT 99
== END 2019-01-04 11:44 | disposition home or self-care (01) ==
LOC: ER 10:00
DX: J06.9 Acute upper respiratory infection, unspecified (principal); I10 Essential (primary) hypertension; Z88.6 Allergy status to analgesic agent; Z88.8 Allergy status to other drugs, medicaments and biological substances
CPT/HCPCS: 71046; 87070; 87081; 87804; 99283

== ENCOUNTER 2019-05-22 12:18 | Emergency (ER) | payer OTHER ==
--- OUTSIDE RECORDS SUMMARY | 2019-05-22 12:21 | XMS REPORT | Summary of Care ---
:1965 Author Name Kelsey Saunders M.A. Address Unavailable Unavailable , Care Team Providers Name Role Phone CJ GUEVARA Unavailable Unavailable KELLI PICKETT Unavailable Unavailable EMIR WILSON M.D. Unavailable Unavailable SHAMIR SANFORD DO Unavailable Unavailable JONATHAN ENRIQUEZ UT, KELLI Appiah Unavailable Unavailable Unavailable Unavailable Unavailable Functional Status Name Dates Details Functional status health issues are not documented Status: Name Dates Details Cognitive status health issues are not documented Status: Problems Name Dates Details History of kidney stones (V13.01, Z87.442) Status: Active Depression (311, F32.9) Status: Active Abscess of bursa of right ankle (727.89, M71.071) Status: Active Injury of left elbow, initial encounter (959.3, S59.902A) Status: Active Gait instability (781.2, R26.81) Status: Active Osteoporosis screening (V82.81, Z13.820) Status: Active Left elbow pain (719.42, M25.522) Status: Active Status post total bilateral knee replacement (V43.65, Z96.653) Status: Active Psoriatic arthritis (696.0, L40.50) Status: Active Amputated left leg (V49.70, Z89.612) Status: Active Bilateral knee pain (719.46, M25.561) Status: Active Arthritis of elbow, 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 Refills: 0 Start : 13-Dec-2016 Active fentaNYL 100 MCG/HR Transdermal Patch 72 Hour APPLY 1 PATCH EVERY 3 DAYS Refills: 0 Start : 13-Dec-2016 Active Morphine Sulfate 30 MG Oral Tablet TAKE 1 TABLET EVERY 4 TO 6 HOURS DIRECTED. Refills: 0 Start : 13-Dec-2016 Active Cyclobenzaprine HCl - 10 MG Oral Tablet TAKE 2 TABLET 3 TIMES DAILY Refills: 0 Start : 13-Dec-2016 Active Amitriptyline HCl - 25 MG Oral Tablet TAKE 1 TABLET AT BEDTIME. Quantity: 90 Refills: 3 KATIE JanieEMIR Start : 13-Dec-2016 Active Vitamin D3 07079 UNIT Oral Capsule Take 1 capsule a week for 12 weeks. Quantity: 12 Refills: 0 GUSTAVO ENRIQUEZCJ Start : 01-Feb-2018 Active Allergies and Adverse Reactions Name Dates Details Aspirin TABS (Allergy) Status: Active Imuran (Allergy) Status: Active Lyrica CAPS (Allergy) Status: Active Past Medical History Name Dates Details Amputated left leg (V49.70, Z89.612) Status: Active Depression (311, F32.9) Status: Active History of kidney stones (V13.01, Z87.442) Status: Active Psoriatic arthritis (696.0, L40.50) Status: Active Procedures Procedure Dates Details [O] Dexa Scan ([employer] X-Ray) [id number] Date: 17-Apr-2019 History of Cholecystectomy Completed History of Total Knee Replacement Left Completed History of Total Knee Replacement Right Completed History of Total Hip Replacement Completed History of Shoulder Arthroplasty Total Shoulder Completed Replacement History of Amputation Of Leg Below Knee Re-amputation Completed Immunization Name Dates Details Td on: 16-Feb-2011 Family History Name Dates Details Family history of diabetes mellitus (V18.0, Z83.3) Status: Active Family history of hypertension (V17.49, Z82.49) Status: Active Social History Name Dates Details - Status: Name Dates Details Never smoker Vital Signs Date Test Result Details No Known Vitals to report Results Date Description Value Details [id number] [H] Procollagen Type I Intact N Terminal Propeptide Procollagen Type I Intact N 52 {UG/L} Range: 22-87 Terminal Pro Comments: Performed At: [facility] [id number] Mejia MD Ph:[phone] Plan of Care Name Dates Details Planned Observations Planned Goals not documented Planned Encounters Appointment; KELLI CASTILLO P.A. On: 15-Jan-2020 11:30 Instructions Name Dates Details Instructions not documented Encounters Appointment; LOLLY LANDEROS M.D. On: 20-Jun-2017 9:30 Encounter Diagnosis: Problem not documented Appointment; LINDSEY ARREOLA M.D. On: 28-Nov-2017 14:00 Encounter Diagnosis: Problem not documented Appointment; CJ CHEN PA On: 14-Dec-2017 10:30 Encounter Diagnosis: Problem not documented Appointment; CJ CHEN PA On: 01-Feb-2018 11:15 Encounter Diagnosis: Problem not documented Appointment; MIGUELINA LARA NP On: 04-Mar-2018 11:00 Encounter Diagnosis: Problem not documented Appointment; JANA ANAYA M.D. On: 15-Apr-2018 14:45 Encounter Diagnosis: Problem not documented Appointment; LOLLY LANDEROS M.D. On: 17-Apr-2018 8:30 Encounter Diagnosis: Problem not documented Appointment; KELLI CASTILLO PBenedictABenedict On: 14-May-2018 9:30 Encounter Diagnosis: Problem not documented Appointment; LOLLY LANDEROS M.D. On: 29-May-2018 11:00 Encounter Diagnosis: Problem not documented Appointment; JANA ANAYA M.D. On: 31-May-2018 11:00 Encounter Diagnosis: Problem not documented Appointment; LOLLY LANDEROS M.D. On: 31-Jul-2018 9:15 Encounter Diagnosis: Problem not documented Appointment; LINDSEY ARREOLA M.D. On: 14-Aug-2018 9:00 Encounter Diagnosis: Problem not documented Appointment; LINDSEY ARREOLA M.D. On: 28-Aug-2018 12:45 Encounter Diagnosis: Problem not documented Appointment; KELLI CASTILLO, P.ABenedict On: 23-Jan-2019 11:00 Encounter Diagnosis: Problem not documented Appointment; KELLI CASTILLO P.ABenedict On: 17-Apr-2019 11:00 Encounter Diagnosis: Problem not documented
--- NOTE | 2019-05-22 13:51 | RAD REPORT ---
EXAM DESCRIPTION: RAD - Knee Right 3 View - 05/22/2019 1:41 pm CLINICAL HISTORY: PAIN COMPARISON: No comparisons FINDINGS: A right total knee arthroplasty is present. The bones are diffusely demineralized. No evid ence of hardware loosening or infection. No joint effusion is evident. Vascular calcifications seen.
--- NOTE | 2019-05-22 14:07 | RAD REPORT ---
EXAM DESCRIPTION: US - Extremity Venous Uni Ltd - 05/22/2019 1:57 pm CLINICAL HISTORY: PAIN Leg swelling and edema. COMPARISON: EXT VENOUS UNI LTD dated 04/23/2014 FINDINGS: Right lower extremity venous system was interrogated with Doppler technique. Normal flow, compressibility and augmentation was noted. There is no DVT present. IMPRESSION: No evidence of right lower extremity deep venous thrombosis.
--- NOTE | 2019-05-22 15:42 | EDPHYS ---
Physician Documentation [facility] Name: Nabor Barrow Jr Age: 54 yrs Sex: Male : 1965 Arrival Date: 05/22/2019 Time: 12:23 Bed 24 Private MD: None, None ED Physician Dean Henderson HPI: 05/22 15:29 This 54 yrs old Male presents to ER via Ambulatory with complaints of Knee gs Injury, Knee Pain. 15:29 The patient presents with an injury, pain. The complaints affect the right knee. Onset: gs The symptoms/episode began/occurred 2 day(s) ago. Modifying factors: the symptoms are aggravated by movement. Associated signs and symptoms: Pertinent positives: swelling, Pertinent negatives nausea, numbness. Severity of symptoms: At their worst the symptoms were moderate, in the emergency department the symptoms are unchanged. The patient has not experienced similar symptoms in the past. Historical: - Allergies: 12:38 Aspirin; iw 12:38 azathioprine sodium; iw 12:38 Imuran; iw 12:38 Lyrica; iw 12:38 NSAIDS (Non-Steroidal Anti-Inflamma; iw 12:38 Demerol; iw - Home Meds: 12:38 gabapentin 800 mg oral tab 3 times per day [Active]; Percocet 10-325 mg Oral tab 1 tab iw every 6 hours [Active]; prednisone 5 mg Oral tab once daily [Active]; 13:14 dilaudid 8 mg every 4 hours [Active]; Fentanyl Patch Topical [Active]; Nexium Oral mg2 [Active]; prednisone 5 mg Oral tab once daily [Active]; - PMHx: 12:38 Arthritis; Chronic pain; Hypertension; Kidney stones; psoriatic arthirits; stroke 2009; iw - PSHx: 12:38 left BKA; iw - Immunization history:: Adult Immunizations not up to date. - Social history:: Smoking status: Patient/guardian denies using tobacco. - Ebola Screening: : Patient negative for fever greater than or equal to 101.5 degrees Fahrenheit, and additional compatible Ebola Virus Disease symptoms Patient denies exposure to infectious person Patient denies travel to an Ebola-affected area in the 21 days before illness onset No symptoms or risks identified at this time. ROS: 15:29 All other systems are negative. gs Exam: 15:29 ENT: Nares patent. No nasal discharge, no septal abnormalities noted. Tympanic gs membranes are normal and external auditory canals are clear. Oropharynx with no redness, swelling, or masses, exudates, or evidence of obstruction, uvula midline. Mucous membranes moist. Neck: Trachea midline, no thyromegaly or masses palpated, and no cervical lymphadenopathy. Supple, full range of motion without nuchal rigidity, or vertebral point tenderness. No Meningismus. Cardiovascular: Regular rate and rhythm with a normal S1 and S2. No gallops, murmurs, or rubs. Normal PMI, no JVD. No pulse deficits. Respiratory: Lungs have equal breath sounds bilaterally, clear to auscultation and percussion. No rales, rhonchi or wheezes noted. No increased work of breathing, no retractions or nasal flaring. Abdomen/GI: Soft, non-tender, with normal bowel sounds. No distension or tympany. No guarding or rebound. No evidence of tenderness throughout. Back: No spinal tenderness. No costovertebral tenderness. Full range of motion. 15:29 Constitutional: The patient appears alert, awake. 15:29 Musculoskeletal/extremity: Perfusion: the patient is warm, Sensation intact. Joints: the right knee displays swelling, tenderness, hematoma medial r knee, DVT Exam: swelling, tenderness. 15:29 Skin: Appearance: venous stasis changes r leg. Vital Signs: 12:38 BP 115 / 73; Pulse 93; Resp 16; Temp 97.8(TE); Pulse Ox 99% on R/A; Weight 65.77 kg; iw Height 6 ft. (182.88 cm); Pain 8/10; 14:40 BP 107 / 76; Pulse 68; Resp 18; Pulse Ox 98% on R/A; mg2 15:55 BP 109 / 72; Pulse 70; Resp 18; Temp 98; Pulse Ox 100% on R/A; mg2 12:38 Body Mass Index 19.67 (65.77 kg, 182.88 cm) iw MDM: 13:11 Patient medically screened. gs 15:29 Differential diagnosis: closed fracture, tendonitis, contusion , hematoma, dvt. Data gs reviewed: vital signs, nurses notes, radiologic studies. Counseling: I had a detailed discussion with the patient and/or guardian regarding: the historical points, exam findings, and any diagnostic results supporting the discharge/admit diagnosis, radiology results. Response to treatment: the patient's symptoms have mildly improved after treatment, and as a result, I will discharge patient. 05/22 13:16 Order name: Knee Right 3 View XRAY; Complete Time: 14:59 gs 05/22 13:16 Order name: US Extremity Venous Unilateral Ltd; Complete Time: 14:59 gs Administered Medications: No medications were administered Disposition: 05/22/19 15:41 Discharged to Home. Impression: Contusion of right knee. - Condition is Stable. - Discharge Instructions: Hematoma. - Medication Reconciliation Form, Thank You Letter, Antibiotic Education, Prescription Opioid Use form. - Follow up: Jose Osorio MD; When: 2 - 3 days; Reason: Re-evaluation by your physician. Signatures: Dispatcher [employer] EDMS Verna Santamaria RN RN Dean Henderson MD MD Garth Summers RN RN mg2 Corrections: (The following items were deleted from the chart) 15:57 15:41 05/22/2019 15:41 Discharged to Home. Impression: Contusion of right knee. mg2 Condition is Stable. Forms are Medication Reconciliation Form, Thank You Letter, Antibiotic Education, Prescription Opioid Use. Follow up: Jose Osorio; When: 2 - 3 days; Reason: Re-evaluation by your physician.
--- NOTE | 2019-05-22 15:42 | ER ---
Nurse's Notes [facility] Name: Nabor Barrow Jr Age: 54 yrs Sex: Male : 1965 Arrival Date: 05/22/2019 Time: 12:23 Bed 24 Private MD: None, None Diagnosis: Contusion of right knee Presentation: 05/22 12:35 Presenting complaint: Patient states: thinks he has a blood clot behind right knee, iw banged his leg against a broom yesterday while cleaning, hematoma noted to medial aspect of right knee, is having a lot of pain and tingling to leg since last night. Transition of care: patient was not received from another setting of care. Onset of symptoms was May 21, 2019. Risk Assessment: Do you want to hurt yourself or someone else? Patient reports no desire to harm self or others. Initial Sepsis Screen: Does the patient meet any 2 criteria? No. Patient's initial sepsis screen is negative. Does the patient have a suspected source of infection? No. Patient's initial sepsis screen is negative. Care prior to arrival: None. 12:35 Method Of Arrival: Ambulatory iw 12:35 Acuity: INNA 3 iw Triage Assessment: 15:56 Injury Description: contusion. mg2 Historical: - Allergies: 12:38 Aspirin; iw 12:38 azathioprine sodium; iw 12:38 Imuran; iw 12:38 Lyrica; iw 12:38 NSAIDS (Non-Steroidal Anti-Inflamma; iw 12:38 Demerol; iw - Home Meds: 12:38 gabapentin 800 mg oral tab 3 times per day [Active]; Percocet 10-325 mg Oral tab 1 tab iw every 6 hours [Active]; prednisone 5 mg Oral tab once daily [Active]; 13:14 dilaudid 8 mg every 4 hours [Active]; Fentanyl Patch Topical [Active]; Nexium Oral mg2 [Active]; prednisone 5 mg Oral tab once daily [Active]; - PMHx: 12:38 Arthritis; Chronic pain; Hypertension; Kidney stones; psoriatic arthirits; stroke 2009; iw - PSHx: 12:38 left BKA; iw - Immunization history:: Adult Immunizations not up to date. - Social history:: Smoking status: Patient/guardian denies using tobacco. - Ebola Screening: : Patient negative for fever greater than or equal to 101.5 degrees Fahrenheit, and additional compatible Ebola Virus Disease symptoms Patient denies exposure to infectious person Patient denies travel to an Ebola-affected area in the 21 days before illness onset No symptoms or risks identified at this time. Screenin:12 Abuse screen: Denies threats or abuse. Denies injuries from another. Nutritional mg2 screening: No deficits noted. Tuberculosis screening: No symptoms or risk factors identified. Fall Risk Ambulatory Aid- None/Bed Rest/Nurse Assist (0 pts). Gait- Impaired (20 pts.). Assessment: 13:14 General: Appears in no apparent distress. comfortable, Behavior is calm, cooperative. mg2 Pain: Complains of pain in right leg Pain does not radiate. Pain currently is 8 out of 10 on a pain scale. Quality of pain is described as aching, Pain began gradually. Neuro: Level of Consciousness is awake, alert, obeys commands, Oriented to person, place, time, situation. Cardiovascular: Capillary refill < 3 seconds Patient's skin is warm and dry. Respiratory: Airway is patent Respiratory effort is even, unlabored, Respiratory pattern is regular, symmetrical. GI: No signs and/or symptoms were reported involving the gastrointestinal system. : No signs and/or symptoms were reported regarding the genitourinary system. EENT: No signs and/or symptoms were reported regarding the EENT system. Derm: Skin is intact, is healthy with good turgor, Skin is pink, warm \T\ dry. normal. Musculoskeletal: Circulation, motion, and sensation intact. Capillary refill < 3 seconds, Swelling present in right leg. 13:49 Reassessment: patient sent to ultrasound. mg2 Vital Signs: 12:38 BP 115 / 73; Pulse 93; Resp 16; Temp 97.8(TE); Pulse Ox 99% on R/A; Weight 65.77 kg; iw Height 6 ft. (182.88 cm); Pain 8/10; 14:40 BP 107 / 76; Pulse 68; Resp 18; Pulse Ox 98% on R/A; mg2 15:55 BP 109 / 72; Pulse 70; Resp 18; Temp 98; Pulse Ox 100% on R/A; mg2 12:38 Body Mass Index 19.67 (65.77 kg, 182.88 cm) iw ED Course: 12:23 Patient arrived in ED. dp 12:24 None, None is Private Physician. dp 12:37 Triage completed. iw 12:38 Arm band placed on. iw 13:01 Dean Henderson MD is Attending Physician. 13:08 Garth Summers, RN is Primary Nurse. mg2 13:13 Patient has correct armband on for positive identification. Door closed. mg2 13:16 No provider procedures requiring assistance completed. mg2 13:42 Knee Right 3 View XRAY In Process Unspecified. EDMS 13:52 US Extremity Venous Unilateral Ltd In Process Unspecified. EDMS 15:39 Jose Osorio MD is Referral Physician. gs 15:55 Patient did not have IV access during this emergency room visit. mg2 Administered Medications: No medications were administered Outcome: 15:41 Discharge ordered by MD. 15:56 Discharged to home via wheelchair, with family. mg2 15:56 Condition: stable 15:56 Discharge instructions given to patient, family, Instructed on discharge instructions, follow up and referral plans. Demonstrated understanding of instructions, follow-up care. 15:57 Patient left the ED. mg2 Signatures: Dispatcher [employer] EDMO Verna Santamaria RN RN Dean Henderson MD MD Garth Summers, RN RN mg2 Santino Reese dp Corrections: (The following items were deleted from the chart) 15:56 15:55 IV discontinued, intact, bleeding controlled, No redness/swelling at site. mg2 Pressure dressing applied, mg2
[2019-05-22 16:08] VITALS: BP 109/72; TEMP 98; O2SAT 100
== END 2019-05-22 15:57 | disposition home or self-care (01) ==
LOC: ER 12:18
DX: S80.01XA Contusion of right knee, initial encounter (principal); G89.29 Other chronic pain; I10 Essential (primary) hypertension; Z86.73 Personal history of transient ischemic attack (TIA), and cerebral infarction without residual deficits; Z88.6 Allergy status to analgesic agent; Z88.5 Allergy status to narcotic agent; Z88.8 Allergy status to other drugs, medicaments and biological substances
CPT/HCPCS: 93971; 99283

== ENCOUNTER 2019-06-06 18:04 | Observation (INO) | payer OTHER ==
[2019-06-06 19:22] LABS: Absolute Lymphocytes (CBC) 0.6 K/uL (0.7-4.9); Basophils % 0.2 % (0-1.3); Hematocrit 50.7 % (39.6-49.0); Lymphocytes % 3.1 % (15.3-44.8); MPV 8.3 fL (7.6-11.3); RBC Red Blood Cell Count 5.21 M/uL (4.33-5.43)
[2019-06-06 19:23] LABS: Protime INR 0.99
[2019-06-06 19:30] LABS: BUN Blood Urea Nitrogen 8 mg/dL (7-18); Bicarbonate 26 mmol/L (21-32); Glucose Level 128 mg/dL (74-106); Potassium 3.5 mmol/L (3.5-5.1); Sodium Level 139 mmol/L (136-145)
[2019-06-06] MEDS ORDERED: NA CHLORIDE 0.9% 1,000 ML ONE (19:52)
[2019-06-06 21:08] LABS: Platelet Estimate ADEQ
[2019-06-06 21:09] LABS: Anisocytosis 1+; Blood Morphology Comment NOTED (NOT SEEN); Platelets, Giant PRESENT
--- NOTE | 2019-06-06 21:10 | ER ---
Nurse's Notes [facility] Name: Nabor Barrow Jr Age: 54 yrs Sex: Male : 1965 Arrival Date: 06/06/2019 Time: 18:06 Bed 28 Private MD: Diagnosis: Cellulitis of right lower limb Presentation: 06/06 18:14 Presenting complaint: Recently seen in ED for leg wound, today wound started bleeding hb and pain increased 8/10. Transition of care: patient was not received from another setting of care. Onset of symptoms was June 06, 2019. Risk Assessment: Do you want to hurt yourself or someone else? Patient reports no desire to harm self or others. Care prior to arrival: None. 18:14 Method Of Arrival: Wheelchair hb 18:14 Acuity: INNA 3 hb 22:38 Initial Sepsis Screen: Does the patient meet any 2 criteria? No. Patient's initial la1 sepsis screen is negative. Does the patient have a suspected source of infection? No. Patient's initial sepsis screen is negative. Historical: - Allergies: 18:17 Aspirin; hb 18:17 azathioprine sodium; hb 18:17 Demerol; hb 18:17 Imuran; hb 18:17 Lyrica; hb 18:17 NSAIDS (Non-Steroidal Anti-Inflamma; hb - Home Meds: 18:17 dilaudid 8 mg every 4 hours [Active]; gabapentin 800 mg Oral tab 3 times per day hb [Active]; Nexium Oral [Active]; Percocet 10-325 mg Oral tab 1 tab every 6 hours [Active]; Fentanyl Patch Topical [Active]; prednisone 5 mg Oral tab once daily [Active]; prednisone 5 mg Oral tab once daily [Active]; - PMHx: 18:17 Arthritis; Chronic pain; Hypertension; Kidney stones; psoriatic arthirits; stroke 2009; hb - PSHx: 18:17 left BKA; hb - Immunization history:: Adult Immunizations up to date. - Social history:: Smoking status: Patient/guardian denies using tobacco. - Ebola Screening: : No symptoms or risks identified at this time. Screenin:13 Abuse screen: Denies threats or abuse. Nutritional screening: No deficits noted. la1 Tuberculosis screening: No symptoms or risk factors identified. Fall Risk None identified. Assessment: 19:11 General: Appears comfortable, Behavior is calm, cooperative. Pain: Complains of pain in la1 right leg. Neuro: Level of Consciousness is awake, alert, obeys commands, Oriented to person, place, time, situation. Cardiovascular: Heart tones S1 S2 present. Respiratory: Airway is patent Trachea midline Respiratory effort is even, unlabored, Respiratory pattern is regular, symmetrical, Breath sounds are clear bilaterally. GI: No signs and/or symptoms were reported involving the gastrointestinal system. : No signs and/or symptoms were reported regarding the genitourinary system. Derm: Redness, swelling to entire right lower extremity, warm with weeping drainage. 20:23 Reassessment: Patient appears in no apparent distress at this time. No changes from la1 previously documented assessment. Patient and/or family updated on plan of care and expected duration. Pain level reassessed. Patient is alert, oriented x 3, equal unlabored respirations, skin warm/dry/pink. Vital Signs: 18:17 BP 102 / 70; Pulse 110; Resp 16; Temp 98.3; Pulse Ox 100% on R/A; Weight 65.77 kg; hb Height 6 ft. (182.88 cm); Pain 8/10; 19:45 BP 133 / 74; Pulse 91; Resp 16; Pulse Ox 98% on R/A; la1 21:31 BP 117 / 90; Pulse 91; Resp 18; Temp 97.7; Pulse Ox 98% on R/A; la1 22:37 BP 114 / 74; Pulse 75; Resp 16; Pulse Ox 98% on R/A; la1 18:17 Body Mass Index 19.67 (65.77 kg, 182.88 cm) hb ED Course: 18:06 Patient arrived in ED. rg4 18:16 Triage completed. hb 18:17 Arm band placed on. hb 18:18 Michael Oquendo RN is Primary Nurse. la1 18:28 Eric Tran PA is PHCP. cp 18:28 Tony Roberto MD is Attending Physician. cp 19:13 Bed in low position. Call light in reach. la1 19:13 No provider procedures requiring assistance completed. Inserted saline lock: 20 gauge la1 in right forearm, using aseptic technique. Blood collected. 19:34 Notified Nurse Practitioner and/or Physician Water Purification Chemist of a critical lab result(s), fc lactate of 2.5. 20:44 LE Artery Uni Ltd In Process Unspecified. EDMS 21:09 Ita Hernandez MD is Hospitalizing Provider. cp 22:39 Patient admitted, IV remains in place. la1 Administered Medications: 19:55 Drug: NS 0.9% 1000 ml Route: IV; Rate: 1 bolus; Site: right forearm; ca1 22:26 Follow up: IV Status: Completed infusion la1 21:33 Drug: NS 0.9% 500 ml Route: IV; Rate: bolus; Site: right forearm; la1 22:33 Follow up: IV Status: Completed infusion la1 21:33 Drug: Zosyn 3.375 grams Route: IVPB; Infused Over: 60 mins; Site: right forearm; la1 22:32 Follow up: IV Status: Completed infusion la1 22:33 Drug: vancoMYCIN 1 grams Route: IVPB; Infused Over: 2 hrs; Site: right forearm; la1 22:33 Follow up: IV Status: Infusion continued upon admission la1 Outcome: 21:09 Decision to Hospitalize by Provider. cp 22:38 Admitted to Med/surg accompanied by tech, via wheelchair. la1 22:38 Condition: stable 22:38 Instructed on the need for admit. 22:52 Patient left the ED. la1 Signatures: Dispatcher [employer] EDMS Kasia Rutherford RN RN fc Attema, Lee, RN RN la1 Eric Tran PA PA cp Ludmila Guerra RN RN hb Garcia, Rubi rg4 Sussy Stubbs RN RN ca1
--- NOTE | 2019-06-06 21:10 | EDPHYS ---
Physician Documentation [facility] Name: Nabor Barrow Jr Age: 54 yrs Sex: Male : 1965 Arrival Date: 06/06/2019 Time: 18:06 Bed 28 Private MD: ED Physician Tony Roberto HPI: 06/06 19:05 This 54 yrs old Male presents to ER via Wheelchair with complaints of Leg Pain.cp 19:05 The patient presents with pain, swelling. cp 19:05 The complaints affect the right leg and right foot. Onset: The symptoms/episode cp began/occurred gradually, and became worse today. Treatment prior to arrival includes: no previous treatment. Historical: - Allergies: 18:17 Aspirin; hb 18:17 azathioprine sodium; hb 18:17 Demerol; hb 18:17 Imuran; hb 18:17 Lyrica; hb 18:17 NSAIDS (Non-Steroidal Anti-Inflamma; hb - Home Meds: 18:17 dilaudid 8 mg every 4 hours [Active]; gabapentin 800 mg Oral tab 3 times per day hb [Active]; Nexium Oral [Active]; Percocet 10-325 mg Oral tab 1 tab every 6 hours [Active]; Fentanyl Patch Topical [Active]; prednisone 5 mg Oral tab once daily [Active]; prednisone 5 mg Oral tab once daily [Active]; - PMHx: 18:17 Arthritis; Chronic pain; Hypertension; Kidney stones; psoriatic arthirits; stroke 2009; hb - PSHx: 18:17 left BKA; hb - Immunization history:: Adult Immunizations up to date. - Social history:: Smoking status: Patient/guardian denies using tobacco. - Ebola Screening: : No symptoms or risks identified at this time. ROS: 19:10 Constitutional: Positive for chills, Negative for body aches, fever, poor PO intake. cp 19:10 Eyes: Negative for injury, pain, redness, and discharge. cp 19:10 ENT: Negative for drainage from ear(s), ear pain, sore throat, difficulty swallowing, difficulty handling secretions. 19:10 Cardiovascular: Negative for chest pain. 19:10 Respiratory: Negative for cough, shortness of breath, wheezing. 19:10 Abdomen/GI: Negative for abdominal pain, nausea, vomiting, and diarrhea. 19:10 Skin: Positive for erythema, swelling, of the right leg and right foot. 19:10 Neuro: Negative for altered mental status, headache, weakness. 19:10 All other systems are negative. Exam: 19:15 Constitutional: The patient appears in no acute distress, alert, awake, cp non-diaphoretic, non-toxic, well developed, well nourished. 19:15 Head/Face: Normocephalic, atraumatic. cp 19:15 Eyes: Periorbital structures: appear normal, Conjunctiva: normal, no exudate, no injection, Sclera: no appreciated abnormality, Lids and lashes: appear normal, bilaterally. 19:15 ENT: External ear(s): are unremarkable, Nose: is normal, Mouth: is normal, Posterior pharynx: is normal, airway is patent, no erythema, no exudate. 19:15 Chest/axilla: Inspection: normal, Palpation: is normal, no crepitus, no tenderness. 19:15 Cardiovascular: Rate: tachycardic, Rhythm: regular. 19:15 Respiratory: the patient does not display signs of respiratory distress, Respirations: normal, no use of accessory muscles, no retractions, no splinting, no tachypnea, labored breathing, is not present, Breath sounds: are clear throughout, no decreased breath sounds, no stridor, no wheezing. 19:15 Abdomen/GI: Inspection: abdomen appears normal, Palpation: abdomen is soft and cp non-tender, in all quadrants, rebound tenderness, is not appreciated, voluntary guarding, is not appreciated, involuntary guarding, is not appreciated. 19:15 Back: pain, is absent, ROM is normal. cp 19:15 Musculoskeletal/extremity: Extremities: noted in the left leg: below the knee amputation, noted in the right leg: erythema, swelling, open wound lateral aspect right knee. 19:15 Skin: cellulitis, that is moderate, on the right leg. 19:15 Neuro: Orientation: to person, place \T\ time. Mentation: is normal. Vital Signs: 18:17 BP 102 / 70; Pulse 110; Resp 16; Temp 98.3; Pulse Ox 100% on R/A; Weight 65.77 kg; hb Height 6 ft. (182.88 cm); Pain 8/10; 19:45 BP 133 / 74; Pulse 91; Resp 16; Pulse Ox 98% on R/A; la1 21:31 BP 117 / 90; Pulse 91; Resp 18; Temp 97.7; Pulse Ox 98% on R/A; la1 22:37 BP 114 / 74; Pulse 75; Resp 16; Pulse Ox 98% on R/A; la1 18:17 Body Mass Index 19.67 (65.77 kg, 182.88 cm) hb MDM: 18:32 Patient medically screened. cp 19:00 Differential diagnosis: abscess, cellulitis, sepsis. cp 21:05 Data reviewed: vital signs, nurses notes, lab test result(s), radiologic studies, cp ultrasound, and as a result, I will admit patient. 21:07 Physician consultation: Ita Hernandez MD was called at 21:07, was contacted at 21:07, cp regarding admission, to the medical/surgical unit. patient's condition. 06/06 18:52 Order name: CBC with Diff; Complete Time: 21:10 cp 06/06 19:40 Interpretation: Normal except: WBC 18.9; HCT 50.7; RDW 16.0; JV% 90.1; LYM% 3.1; NEUT cp A 17.0; LYMA 0.6. 06/06 18:52 Order name: BMP; Complete Time: 19:40 cp 06/06 19:58 Interpretation: Normal except: CL 108; GLUC 128. cp 06/06 18:52 Order name: Procalcitonin; Complete Time: 19:47 cp 06/06 19:47 Interpretation: Reviewed. cp 06/06 18:52 Order name: Lactate; Complete Time: 19:40 cp 06/06 18:52 Order name: Blood Culture Adult (2) cp 06/06 18:52 Order name: PT-INR; Complete Time: 19:40 cp 06/06 18:52 Order name: Wound Culture cp 06/06 21:08 Order name: Manual Differential; Complete Time: 21:10 EDMS 06/06 21:49 Order name: Basic Metabolic Panel EDMS 06/06 21:49 Order name: Basic Metabolic Panel EDMS 06/06 21:49 Order name: CBC with Automated Diff EDMS 06/06 21:49 Order name: CBC with Automated Diff EDMS 06/06 21:49 Order name: Protime (+INR) EDMS 06/06 21:49 Order name: Protime (+INR) EDSD 06/06 18:52 Order name: IV; Complete Time: 19:13 cp 06/06 20:00 Order name: US LE Artery Uni Ltd cp 06/06 21:07 Order name: Wound dressing; Complete Time: 22:52 cp 06/06 21:48 Order name: CONS Pharmacy Consult EDMS 06/06 21:48 Order name: CONS Pharmacy Consult EDSD 06/06 21:48 Order name: Regular EDMS 06/06 21:49 Order name: PTT, Activated Partial Thromb EDMS 06/06 21:49 Order name: PTT, Activated Partial Thromb EDMS Administered Medications: 19:55 Drug: NS 0.9% 1000 ml Route: IV; Rate: 1 bolus; Site: right forearm; ca1 22:26 Follow up: IV Status: Completed infusion la1 21:33 Drug: NS 0.9% 500 ml Route: IV; Rate: bolus; Site: right forearm; la1 22:33 Follow up: IV Status: Completed infusion la1 21:33 Drug: Zosyn 3.375 grams Route: IVPB; Infused Over: 60 mins; Site: right forearm; la1 22:32 Follow up: IV Status: Completed infusion la1 22:33 Drug: vancoMYCIN 1 grams Route: IVPB; Infused Over: 2 hrs; Site: right forearm; la1 22:33 Follow up: IV Status: Infusion continued upon admission la1 Disposition: 06/06/19 21:09 Hospitalization ordered by Ita Hernandez for Inpatient Admission. Preliminary diagnosis is Cellulitis of right lower limb. - Bed requested for Telemetry/MedSurg (Inpatient). - Status is Inpatient Admission. la1 - Condition is Stable. - Problem is new. - Symptoms have improved. UTI on Admission? No Addendum: 06/09/2019 09:02 Co-signature as Attending Physician, Tony Roberto MD I agree with the assessment and k dr plan of care. Signatures: Dispatcher [employer] [facility] Tony Roberto MD MD kdr Attema, Lee RN RN la1 Eric Tran PA PA cp Baxter, Heather, RN RN Ryan Le RN RN rr5 Sussy Stubbs RN RN ca1 Corrections: (The following items were deleted from the chart) 06/06 22:21 21:09 Hospitalization Ordered by Ita Hernandez MD for Inpatient Admission. Preliminary rr5 diagnosis is Cellulitis of right lower limb. Bed requested for Telemetry/MedSurg (Inpatient). Status is Inpatient Admission. Condition is Stable. Problem is new. Symptoms have improved. UTI on Admission? No. cp 22:52 22:21 06/06/2019 21:09 Hospitalization Ordered by Ita Hernandez MD for Inpatient la1 Admission. Preliminary diagnosis is Cellulitis of right lower limb. Bed requested for Telemetry/MedSurg (Inpatient). Status is Inpatient Admission. Condition is Stable. Problem is new. Symptoms have improved. UTI on Admission? No. rr5
[2019-06-06] MEDS ORDERED: PIPER/TAZO/NS 3.375gm 3.375 GM/100 ML BAG ONE (21:19)
[2019-06-06] MEDS ORDERED: NA CHLORIDE 0.9% 500 ML ONE (21:19)
[2019-06-06] MEDS ORDERED: NA CHLORIDE 0.9% 250 ML ONE (21:20)
[2019-06-06] MEDS ORDERED: VANCOMYCIN 1 GM/VIAL ONE (21:20)
--- NOTE | 2019-06-06 21:26 | RAD REPORT ---
EXAM DESCRIPTION: US - Lower Extremity Artery Uni Ltd - 06/06/2019 8:41 pm CLINICAL HISTORY: Leg pain and swelling COMPARISON: None. TECHNIQUE: Doppler evaluation of the right lower extremity arterial tree performed. Waveforms and ve locity values were obtained along with visual inspection. FINDINGS: No occlusion or focal flow restricting lesion identified. Atherosclerotic calcifications p resent. Monophasic waveform patterns were seen along the length the right lower extremity. This likel y indicates the presence of significant iliac disease. Peak systolic and end-diastolic velocity value s were obtained and recorded in the PACs system. IMPRESSION: Monophasic waveform pattern along the length of the right lower extremity with no focal flow restricting lesion or occlusion. Monophasic waveform pattern likely indicate significant aortoiliac disease.
[2019-06-06] MEDS ORDERED: ONDANSETRON 4 MG/2 ML VIAL IV PRN (21:43)
[2019-06-06] MEDS ORDERED: ACETAMINOPHEN 500 MG TAB PO PRN (21:43)
[2019-06-06] MEDS ORDERED: VANCOMYCIN/NS 1 gm 1 GM/250 ML BAG IVPB SCH (21:45)
[2019-06-06] MEDS ORDERED: Levofloxacin500mg IV 500 MG/100 ML BAG IV SCH (22:00)
[2019-06-06 23:15] VITALS: BMI 23.1
[2019-06-07] MEDS: NA CHLORIDE 0.9% 1,000 ML IV SCH ×3 (00:24→10:00)
[2019-06-07] MEDS: MORPHINE 4 MG/ML SYR IV PRN ×4 (00:24→13:18)
[2019-06-07 02:42] VITALS: O2SAT 95
[2019-06-07 06:25] LABS: Absolute Lymphocytes (CBC) 0.7 K/uL (0.7-4.9); Basophils % 0.4 % (0-1.3); Hematocrit 44.6 % (39.6-49.0); Lymphocytes % 5.5 % (15.3-44.8); MPV 7.8 fL (7.6-11.3); RBC Red Blood Cell Count 4.54 M/uL (4.33-5.43)
[2019-06-07 06:39] LABS: Protime INR 1.03
[2019-06-07 06:45] LABS: BUN Blood Urea Nitrogen 6 mg/dL (7-18); Bicarbonate 29 mmol/L (21-32); Glucose Level 91 mg/dL (74-106); Potassium 3.7 mmol/L (3.5-5.1); Sodium Level 144 mmol/L (136-145)
[2019-06-07 09:49] VITALS: BP 122/74; TEMP 98.1
[2019-06-07] MEDS ORDERED: VANCOMYCIN/NS 1 gm 1 GM/250 ML BAG IVPB SCH (11:00)
[2019-06-07] MEDS ORDERED: VANCOMYCIN 1.25 GM in NA CHLORIDE 0.9% 250 ML IVPB SCH (11:00)
--- NOTE | 2019-06-07 12:50 | RAD REPORT ---
EXAM DESCRIPTION: CT - Lower Extremity W/ Cont - 06/07/2019 12:08 pm CLINICAL HISTORY: Right Leg pain and swelling COMPARISON: 2013 cat scan TECHNIQUE: Computed axial tomography was obtained from mid aspect of the femur to foot. 50 cc Isovue -[address] scans are performed using dose optimization technique as appropriate and may include automated exposure control or mA/KV adjustment according to patient size. FINDINGS: Diffuse edema is present within the subcutaneous tissues. Soft tissue ulceration is presen t along the medial aspect of the lower knee. No evidence of osteomyelitis. An abscess is not visualized. Right knee arthroplasty has been performed. IMPRESSION: Diffuse edema within the subcutaneous tissues likely indicating a cellulitis
--- NOTE | 2019-06-07 14:36 | P.SSS ---
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 Patient states that he had a slip and fall twice last week in the bathtub which resulted in a large hematoma around his knee which was red and erythematous. He stated that he may have been picking at it which opened the wound and draining dark red blood. Therefore he came to the ER. Allergies azathioprine [From Imuran] Allergy (Severe, Verified 06/06/19 23:18) Anaphylaxis azathioprine sodium [From Imuran] Allergy (Severe, Verified 06/06/19 23:18) Anaphylaxis pregabalin [From Lyrica] Allergy (Severe, Verified 09/01/14 09:28) Anaphylaxis aspirin Allergy (Verified 06/06/19 23:18) upset stomach due to ulcer NSAIDS (Non-Steroidal Anti-Inflamma Adverse Reaction (Intermediate, Verified 12/24 23:18) upset stomach due to ulcer salicylates [Salicylate] Adverse Reaction (Intermediate, Verified 09/01/14 09:28 ) DIARRHEA Emarin Allergy (Uncoded 07/02/15 18:50) Unknown Home medications list reviewed: Yes Home Medications: Esomeprazole Mag Trihydrate [Nexium] 40 mg PO SEECOM 06/07/19 Forteo 20 mcg SQ DAILY 06/07/19 Gabapentin [Neurontin] 800 mg PO Q6H 06/07/19 Oxycodone HCl/Acetaminophen [Percocet 10-325 mg Tablet] 1 tab PO Q6HP PRN Testosterone Cypionate [Testone Cik] 1 ml IM Q7D 06/07/19 levoFLOXacin [Levaquin] 500 mg PO DAILY #7 tab 06/07/19 predniSONE [Prednisone] 5 mg PO BID 06/07/19 - Past Medical/Surgical History Has patient received pneumonia vaccine in the past: Yes Diabetic: No -: History of CVA 2009 -: History of diabetes -: Psoriatic arthritis -: Anxiety -: Chronic steroids -: Bed-bound due to arthritis -: Nephrolithiasis -: Hypertension -: Chronic pain -: Hernia repair -: Cholecystectomy -: Bowel resection -: jacob hip replacement -: jacob shoulder sx -: jacob knee replacement -: Foot surgery -: Cancer Psychosocial/ Personal History: He lives at home with his mother. He is single. He has 3 children. He is bed bound due to his arthritis. - Family History Father -: Hypertension Notes: arthritis Mother -: Diabetes, Cancer Notes: arthritis - Social History Smoking Status: Never smoker Alcohol use: No CD- Drugs: Yes Caffeine use: No Place of Residence: Home Review of Systems 10-point ROS is otherwise unremarkable Physical Examination - Vital Signs Temperature: 98.1 F Blood Pressure: 122/74 Pulse: 80 Respirations: 17 Pulse Ox (%): 98 - Physical Exam General: Alert, In no apparent distress, Oriented x3 HEENT: Atraumatic, PERRLA, Mucous membr. moist/pink, EOMI, Sclerae nonicteric Neck: Supple, 2+ carotid pulse no bruit, No LAD, Without JVD or thyroid abnormality Respiratory: Clear to auscultation bilaterally, Normal air movement Cardiovascular: Regular rate/rhythm, Normal S1 S2 Gastrointestinal: Normal bowel sounds, No tenderness Musculoskeletal: Other (Wound on right knee, non purulent drainage.) Integumentary: No rashes Neurological: Normal gait, Normal speech, Normal strength at 5/5 x4 extr, Normal tone, Normal affect Lymphatics: No axilla or inguinal lymphadenopathy - Studies Laboratory Data (last 24 hrs) 06/06/19 19:05: PT 11.7, INR 0.99 06/06/19 19:05: Sodium 139, Potassium 3.5, BUN 8, Creatinine 0.79, Glucose 128 H 06/06/19 19:05: WBC 18.9 H, Hgb 16.4, Hct 50.7 H, Plt Count 307 - Diagnosis (Problem(s)) (1) Complicated open wound - lower leg Status: Active (2) CVA - cerebrovascular accident due to cerebral artery occlusion Status: Chronic (3) Chronic back pain Onset Date: 09/22/16 Status: Chronic Qualifiers: Back pain location: low back pain Back pain laterality: bilateral Sciatica presence: unspecified whether sciatica present Qualified Code(s): M54.5 - Low back pain; G89.29 - Other chronic pain (4) Diabetes mellitus Onset Date: 09/22/16 Status: Chronic Qualifiers: Diabetes mellitus type: type 2 Diabetes mellitus residential insulin use: without residential use Diabetes mellitus complication status: without complication Qualified Code(s): E11.9 - Type 2 diabetes mellitus without complications (5) History of - hypertension Status: Chronic Treatment Summary: He was admitted for further management of his cellulitis. He was started on IV antibiotics. General surgery was consulted. His white blood cell count improved from 18.9 on admission to 13.5. His lactic acidosis resolves with IV fluids. His vital signs remained stable. Patient was seen by general surgery, Dr. Pavon. He was taught wound cleaning and wound care. He otherwise remained stable throughout the stay. He was then cleared for discharge by general surgery. His diagnoses and treatment plan explained to him, all questions were answered and he verbalized understanding. He will follow up instructions for wound care/cleaning and follow up with Dr. Pavon in 1-2 weeks. He was discharged on oral Levaquin for a 7 day course. - Disposition Discharge Date: 06/07/19 Disposition: ROUTINE DISCHARGE Condition: GOOD Patient Discharge Instructions: Please follow up with your PCP in 2-3 days. Please follow up with Surgeon, Dr. Pavon, in 1 week. Please return to the Emergency room for worsening symptoms. Diet: ADA Activity: Ad alessandra
--- NOTE | 2019-06-07 14:53 | P.CNS ---
Date of Consult: 06/07/19 PC: This 54-year-old male presents to the emergency room with pain swelling and discomfort in his left knee. HPC: Patient apparently had a slip and fall twice last week in his bathtub. Had a large hematoma around his knee. It was red and erythematous . Since his admission is open and drained old hematoma. PSHx: Previous below-knee amputation on the left status post injury at work. Currently disabled. SOC: Allergies noted SYS REVIEW: No cough, wheeze, shortness of breath. No chest pain or palpitations. Those had a take care was leg fairly well. He understands about leg elevation etc. He was concerned because hematoma had not drained. Since then and feels much better. O/E. Awake alert vital signs are stable HEENT: Within normal limits Chest: Chest movement equal bilateral ABD: Soft LOCO: Patient is an open wound on the right lower knee. Draining some old hematoma. No evidence of any purulence. DATA: Tibial NL IMPRESSION: Wound to the right lower leg PLAN: The patient has been instructed on wound care. He is going to shower with a chlorhexidine solution prior to his discharge. He is instructed on wound care. He will follow up with me in my office. Should any questions or problems he will return to the emergency room or contact me.
== END 2019-06-07 16:35 | disposition home or self-care (01) ==
LOC: ER 18:04 → ERHOLD 22:27 → 2ND 22:39
PROVIDERS: ADMIT Hospitalist; ATTEND Family Medicine
DX: L03.115 Cellulitis of right lower limb (principal); S81.001A Unspecified open wound, right knee, initial encounter; W18.2XXA Fall in (into) shower or empty bathtub, initial encounter; E11.9 Type 2 diabetes mellitus without complications; I10 Essential (primary) hypertension; M54.5 Low back pain; G89.29 Other chronic pain; M19.90 Unspecified osteoarthritis, unspecified site; Z79.52 Long term (current) use of systemic steroids; Z79.899 Other long term (current) drug therapy; Z86.73 Personal history of transient ischemic attack (TIA), and cerebral infarction without residual deficits; Z89.512 Acquired absence of left leg below knee; Z74.01 Bed confinement status
CPT/HCPCS: 96365; 96361; 87040 ×2; 87070; 85025 ×2; 80048 ×2; 36415; 87205 ×2; 85610 ×2; 83605 ×2; 85730; 84145; 73701; 93926; 96375; 99285; Q9967; J2543; J3370; J7030 ×3; G0379; G0378; J2405

== ENCOUNTER 2019-06-23 08:02 | Day surgery (SDC) | payer OTHER ==
[2019-06-20 10:48] LABS: Absolute Lymphocytes (CBC) 0.7 K/uL (0.7-4.9); Basophils % 0.3 % (0-1.3); Hematocrit 51.7 % (39.6-49.0); Lymphocytes % 3.6 % (15.3-44.8); MPV 7.9 fL (7.6-11.3); RBC Red Blood Cell Count 5.33 M/uL (4.33-5.43)
[2019-06-20 11:04] LABS: BUN Blood Urea Nitrogen 8 mg/dL (7-18); Bicarbonate 28 mmol/L (21-32); Glucose Level 85 mg/dL (74-106); Sodium Level 144 mmol/L (136-145)
[2019-06-20 13:33] LABS: Blood Morphology Comment NOT SEEN (NOT SEEN); Platelet Estimate INCR
--- NOTE | 2019-06-21 09:11 | EKG ---
Test Date: 2019-06-20 Test Time: 09:37:07 Furnace Keeper: BRANDON MEASUREMENT RESULTS: Intervals: Rate: 87 VT: 120 QRSD: 126 QT: 376 QTc: 452 [place]: P: 41 VT: 120 QRS: -84 T: 30 INTERPRETIVE STATEMENTS: Normal sinus rhythm Left axis deviation Right bundle branch block Abnormal ECG Compared to ECG 09/21/2016 13:08:17 Left-axis deviation now present Right bundle-branch block now present Sinus tachycardia no longer present Right superior axis no longer present Myocardial infarct finding no longer present Electronically Signed On 06-21-19 09:08:48 CDT by Mathieu Jorgnesen
[2019-06-23] MEDS ORDERED: FENTANYL CITR 100 MCG/2 ML ONE (08:07)
[2019-06-23] MEDS ORDERED: dexAMETHasone 10 MG/ML VIAL ONE (08:07)
[2019-06-23] MEDS ORDERED: LIDOCAINE 2% MPF 5 ML VIAL ONE (08:07)
[2019-06-23] MEDS ORDERED: PROPOFOL 200 MG/20 ML VIAL IV ONE (08:07)
[2019-06-23] MEDS ORDERED: MIDAZOLAM HCL 2 MG/2 ML INJ ONE (08:07)
[2019-06-23] MEDS ORDERED: Ringers Lactate 1,000 ML IV ONE (08:17)
[2019-06-23] MEDS ORDERED: CEFOXITIN/SWI 1gm 1 GM/10 ML SYR ONE (08:17)
[2019-06-23] MEDS: HYDROMORPHONE HCL 1 MG/ML INJ ONE ×4 (10:14→10:35)
[2019-06-23 10:41] VITALS: O2SAT 96
[2019-06-23] MEDS ORDERED: HYDROCODONE/APAP 7.5/325 MG TAB ONE (11:03)
[2019-06-23 11:21] VITALS: BP 100/66; TEMP 97.5
--- NOTE | 2019-06-23 21:01 | OP ---
Date of Procedure: 06/23/2019 Surgeon: Too Almeida MD Preoperative Diagnosis: Rectal pain, hemorrhoids. Postoperative Diagnosis: Rectal pain with thrombosed hemorrhoid in the left lateral position. Procedure Performed: Exam under anesthesia, rigid proctoscopy, and complex hemorrhoidectomy. Estimated Blood Loss: Minimal. Specimen: Complex hemorrhoid with internal and external component on the left lateral side. Findings: As above. Anesthesia: General. Complications: None. Patient tolerated the procedure in stable condition and taken to Recovery in good general condition. Procedure In Detail: Patient was brought to the OR and placed in supine position. General anesthesi a was begun. Patient was placed in lithotomy position, prepped and draped in usual sterile fashion. Exam under anesthesia revealed a large internal-external hemorrhoids. On the left lateral side, rig id proctoscopy confirmed the findings. No other evidence of disease identified. A Harmonic scalpel was used to excise the entire thrombosed hemorrhoid. Bleeding controlled with cautery and pressure a nd then Gel-Foam, Surgicel, and Vaseline gauze placed in the anal canal for postop bleeding. Marcain e 0.5% was infiltrated locally for postop pain control. Sterile dressing was applied. Patient was a wakened and taken to Recovery in good general condition. Discharge Note: Patient will go to Day Surgery, then home when stable. Dispositon: Home. Condition: Stable. Discharge Instructions: Resume home medications and diet. Activity as tolerated. No heavy lifting. Remove outer dressing in a.m. Sitz baths q.i.d. Metamucil 1 tablespoon t.i.d., Colace 100 mg p.o. b.i.d., Procto-HC 2.5% to anus b.i.d. and p.r.n. and sitz baths as ordered and then the patient has pain medication. Follow up in my office in 2 weeks. Call for appointment. CLAIRE/ROSALIND Voice ID: [id number] Report ID: [id number]
== END 2019-06-23 11:49 | disposition home or self-care (01) ==
LOC: OR 08:02
PROVIDERS: ATTEND Surgery
PROC: 06BY0ZC Excision of Hemorrhoidal Plexus, Open Approach (ICD-10-PCS; 2019-06-23)
PROC: 0DJD8ZZ Inspection of Lower Intestinal Tract, Via Natural or Artificial Opening Endoscopic (ICD-10-PCS; principal; 2019-06-23 09:00)
DX: K64.5 Perianal venous thrombosis (principal); K21.9 Gastro-esophageal reflux disease without esophagitis; M19.90 Unspecified osteoarthritis, unspecified site
CPT/HCPCS: 45300; 46320; 93005; 85025; 80048; 36415; 88304; J2704; J2250; J3010; J1100; J1170 ×2

== ENCOUNTER 2019-07-06 14:28 | Emergency (ER) | payer OTHER ==
[2019-07-06] MEDS ORDERED: PANTOPRAZOLE 40 MG INJ ONE (14:40)
[2019-07-06] MEDS ORDERED: NA CHLORIDE 0.9% 1,000 ML ONE (14:40)
[2019-07-06 14:54] LABS: Absolute Lymphocytes (CBC) 0.6 K/uL (0.7-4.9); Basophils % 0.3 % (0-1.3); Hematocrit 22.3 % (39.6-49.0); Lymphocytes % 2.4 % (15.3-44.8); MPV 7.9 fL (7.6-11.3); Protime INR 1.23; RBC Red Blood Cell Count 2.36 M/uL (4.33-5.43)
--- NOTE | 2019-07-06 15:08 | ER ---
Nurse's Notes [facility] Name: Nabor Barrow Jr Age: 54 yrs Sex: Male : 1965 Arrival Date: 07/06/2019 Time: 14:29 Bed 2 Private MD: Diagnosis: Gastrointestinal hemorrhage, unspecified;Abdominal tenderness;Hypotension-resolved;Anemia, unspecified;Elevated white blood cell count;Hypomagnesemia Presentation: 07/06 14:30 Presenting complaint: Patient states: was called for pt with complaints of general hj weakness, S/P hemorrhoidectomy with excision of blood clot, reports rectal bleed of dark blood, since surgery, reports N/V; BP- 77/44; 18 g R FA with NS 1L bolus; BP- 90/57; HR- 120's;. Transition of care: patient was not received from another setting of care. Onset of symptoms was July 06, 2019. Risk Assessment: Do you want to hurt yourself or someone else? Patient reports no desire to harm self or others. Initial Sepsis Screen: Does the patient meet any 2 criteria? No. Patient's initial sepsis screen is negative. Does the patient have a suspected source of infection? No. Patient's initial sepsis screen is negative. Care prior to arrival: None. 14:30 Method Of Arrival: Ambulatory hj 14:39 Acuity: INNA 2 hj Triage Assessment: 14:34 General: Appears in no apparent distress. uncomfortable, Behavior is calm, cooperative, hj appropriate for age. Pain: Complains of pain in rectum. Historical: - Allergies: 14:34 Aspirin; hj 14:34 azathioprine sodium; hj 14:34 Demerol; hj 14:34 Imuran; hj 14:34 Lyrica; hj 14:34 NSAIDS (Non-Steroidal Anti-Inflamma; hj - Home Meds: 14:34 Plavix 75 mg Oral tab 1 tab once daily [Active]; dilaudid 8 mg every 4 hours [Active]; hj Fentanyl Patch Topical [Active]; gabapentin 800 mg Oral tab 3 times per day [Active]; Nexium Oral [Active]; Percocet 10-325 mg Oral tab 1 tab every 6 hours [Active]; prednisone 5 mg Oral tab once daily [Active]; prednisone 5 mg Oral tab once daily [Active]; - PMHx: 14:34 Arthritis; Chronic pain; Hypertension; Kidney stones; psoriatic arthirits; stroke 2009; hj - PSHx: 14:34 left BKA; hemorroidectomy; hj - Immunization history:: Adult Immunizations up to date. - Social history:: Smoking status: Patient/guardian denies using tobacco, Patient/guardian denies using alcohol. - Ebola Screening: : Patient negative for fever greater than or equal to 101.5 degrees Fahrenheit, and additional compatible Ebola Virus Disease symptoms Patient denies exposure to infectious person Patient denies travel to an Ebola-affected area in the 21 days before illness onset. - Family history:: not pertinent. Screenin:34 Abuse screen: Denies threats or abuse. Denies injuries from another. Nutritional hj screening: No deficits noted. Tuberculosis screening: No symptoms or risk factors identified. Fall Risk None identified. Assessment: 16:25 Reassessment: BT started; verified by Ludmila WASHBURN; documented under BT sheet;. Vital Signs: 14:35 BP 98 / 62; Pulse 120; Resp 18; Temp 99.0(TE); Pulse Ox 97% on R/A; Weight 65.77 kg; hj Height 5 ft. 7 in. (170.18 cm); Pain 10/10; 14:45 BP 92 / 59; Pulse 117; Resp 18; Pulse Ox 96% on R/A; hj 15:25 BP 92 / 62; Pulse 104; Resp 18; Pulse Ox 98% on R/A; hj 15:30 BP 103 / 82; Pulse 101; Resp 18; Pulse Ox 100% on 2 lpm NC; hj 15:45 BP 92 / 60; Pulse 106; Resp 18; Pulse Ox 100% on 2 lpm NC; hj 16:04 BP 102 / 60; Pulse 98; Resp 18; Pulse Ox 98% on 2 lpm NC; hj 17:05 BP 93 / 61; Pulse 94; Resp 18; Pulse Ox 100% on 2 lpm NC; hj 14:35 Body Mass Index 22.71 (65.77 kg, 170.18 cm) ED Course: 14:29 Patient arrived in ED. hj 14:30 Curt Phillip RN is Primary Nurse. 14:33 Triage completed. hj 14:33 Eric Barcenas MD is Attending Physician. daniele 14:35 Arm band placed on right wrist. hj 14:35 Patient has correct armband on for positive identification. Placed in gown. Bed in low hj position. Call light in reach. Side rails up X 1. Adult w/ patient. 14:37 Initial lab(s) drawn, by me, sent to lab. Inserted saline lock: 18 gauge in right hj forearm, using aseptic technique. Blood collected. 15:06 CT Abd/Pelvis - Without Contrast In Process Unspecified. EDMS 15:13 XRAY Chest (1 view) In Process Unspecified. EDMS 15:[address] Barcenas with Lubna Moran at the [facility] eb Center. 15:[address] Posadas the GI specimen preparation assistant for [facility] with Dr. Barcenas for patient eb transfer consultation. 15:36 connected Stevie Antunez the hospitalist specimen preparation assistant for [facility] with Dr. Barcenas for eb patient transfer consultation. 15:46 administrative approval given by Lubna Moran RN/ Patient has been accepted to [facility] bed 2242/ Stevie Antunez has accepted the patient in transfer/ Report to be called to [phone]. 16:05 Inserted saline lock: 20 gauge in left forearm, using aseptic technique. hj 17:03 No provider procedures requiring assistance completed. Patient transferred, IV remains hj in place. intact. Administered Medications: 14:37 Drug: ProTONIX 40 mg Route: IVP; Site: right forearm; hj 15:09 Follow up: Response: No adverse reaction hj 14:37 Drug: NS 0.9% 500 ml Route: IV; Rate: bolus; Site: left forearm; hj 15:08 Follow up: IV Status: Completed infusion; IV Intake: 500ml hj 14:45 Drug: NS 0.9% 1000 ml Route: IV; Rate: 125 ml/hr; Site: right forearm; hj 15:09 Follow up: IV Status: Infusion continued upon transfer hj 15:06 Drug: Flagyl 500 mg Volume: 100 ml; Route: IVPB; Rate: 200 ml/hr; Infused Over: 30 hj mins; Site: right forearm; 15:17 Follow up: IV Status: Completed infusion; Infusion continued hj 15:21 Drug: Cipro 400 mg Volume: 200 ml; Route: IVPB; Infused Over: 60 mins; Site: left hj forearm; 15:26 Follow up: IV Status: Infusion continued upon transfer 16:39 Drug: Magnesium Sulfate 1 grams Route: IVPB; Infused Over: 1 hrs; Site: right forearm; hj 17:05 Follow up: IV Status: Infusion continued upon transfer Intake: 15:08 IV: 500ml; Total: 500ml. Outcome: 15:06 ER care complete, transfer ordered by . daniele 17:03 Transferred by ground EMS to [facility], Transfer form completed. X-rays sent w/ patient. 17:03 Transferred Note: with Blood Transfusion 1 unit type O positive verified by EMS staff; given a copy of BT sheet; 17:03 Condition: stable 17:03 Instructed on the need for transfer, Demonstrated understanding of instructions. 17:06 Patient left the ED. Signatures: Dispatcher [employer] EDMS Eric Barcenas MD MD cha Joaquin, Henry RN Ludmila Higgins RN RN hb Botello, Elizabeth eb Corrections: (The following items were deleted from the chart) 15:39 14:30 Acuity: INNA 3 [facility] 15:39 14:39 Acuity: INNA [address] [facility]
--- NOTE | 2019-07-06 15:09 | EDPHYS ---
Physician Documentation [facility] Name: Nabor Barrow Jr Age: 54 yrs Sex: Male : 1965 Arrival Date: 07/06/2019 Time: 14:29 Bed 2 Private MD: KARAN Physician Eric Barcenas HPI: 07/06 14:37 This 54 yrs old Male presents to ER via Ambulatory with complaints of red and daniele dark blood per rectum. 14:37 The patient presents to the emergency department with rectal bleeding, a moderate daniele amount, bright red blood with bowel movement, dark red blood with bowel movement with multiple such episodes. Onset: The symptoms/episode began/occurred 3 day(s) ago. Abdominal pain: located in the right upper quadrant, left upper quadrant, right lower quadrant and left lower quadrant. Modifying factors: The symptoms are alleviated by nothing, the symptoms are aggravated by nothing. Associated signs and symptoms: The patient has no apparent associated signs or symptoms. Severity of symptoms: At their worst the symptoms were mild in the emergency department the symptoms are unchanged. The patient has not experienced similar symptoms in the past. Historical: - Allergies: 14:34 Aspirin; hj 14:34 azathioprine sodium; hj 14:34 Demerol; hj 14:34 Imuran; hj 14:34 Lyrica; hj 14:34 NSAIDS (Non-Steroidal Anti-Inflamma; hj - Home Meds: 14:34 Plavix 75 mg Oral tab 1 tab once daily [Active]; dilaudid 8 mg every 4 hours [Active]; hj Fentanyl Patch Topical [Active]; gabapentin 800 mg Oral tab 3 times per day [Active]; Nexium Oral [Active]; Percocet 10-325 mg Oral tab 1 tab every 6 hours [Active]; prednisone 5 mg Oral tab once daily [Active]; prednisone 5 mg Oral tab once daily [Active]; - PMHx: 14:34 Arthritis; Chronic pain; Hypertension; Kidney stones; psoriatic arthirits; stroke 2009; hj - PSHx: 14:34 left BKA; hemorroidectomy; hj - Immunization history:: Adult Immunizations up to date. - Social history:: Smoking status: Patient/guardian denies using tobacco, Patient/guardian denies using alcohol. - Ebola Screening: : Patient negative for fever greater than or equal to 101.5 degrees Fahrenheit, and additional compatible Ebola Virus Disease symptoms Patient denies exposure to infectious person Patient denies travel to an Ebola-affected area in the 21 days before illness onset. - Family history:: not pertinent. ROS: 14:37 Constitutional: Negative for fever, chills, and weight loss, Eyes: Negative for injury, daniele pain, redness, and discharge, ENT: Negative for injury, pain, and discharge, Neck: Negative for injury, pain, and swelling, Cardiovascular: Negative for chest pain, palpitations, and edema, Respiratory: Negative for shortness of breath, cough, wheezing, and pleuritic chest pain, Back: Negative for injury and pain, : Negative for injury, bleeding, discharge, and swelling, MS/Extremity: Negative for injury and deformity, Skin: Negative for injury, rash, and discoloration, Psych: Negative for depression, anxiety, suicide ideation, homicidal ideation, and hallucinations, Allergy/Immunology: Negative for hives, rash, and allergies, Endocrine: Negative for neck swelling, polydipsia, polyuria, polyphagia, and marked weight changes, Hematologic/Lymphatic: Negative for swollen nodes, abnormal bleeding, and unusual bruising. 14:37 Abdomen/GI: Positive for nausea, vomiting, rectal bleeding. Exam: 14:37 Constitutional: This is a well developed, well nourished patient who is awake, alert, daniele and in no acute distress. Head/Face: Normocephalic, atraumatic. Eyes: Pupils equal round and reactive to light, extra-ocular motions intact. Lids and lashes normal. Conjunctiva and sclera are non-icteric and not injected. Cornea within normal limits. Periorbital areas with no swelling, redness, or edema. ENT: Nares patent. No nasal discharge, no septal abnormalities noted. Tympanic membranes are normal and external auditory canals are clear. Oropharynx with no redness, swelling, or masses, exudates, or evidence of obstruction, uvula midline. Mucous membranes moist. Neck: Trachea midline, no thyromegaly or masses palpated, and no cervical lymphadenopathy. Supple, full range of motion without nuchal rigidity, or vertebral point tenderness. No Meningismus. Chest/axilla: Normal chest wall appearance and motion. Nontender with no deformity. No lesions are appreciated. Respiratory: Lungs have equal breath sounds bilaterally, clear to auscultation and percussion. No rales, rhonchi or wheezes noted. No increased work of breathing, no retractions or nasal flaring. Back: No spinal tenderness. No costovertebral tenderness. Full range of motion. Male : Normal genitalia with no discharge or lesions. MS/ Extremity: Pulses equal, no cyanosis. Neurovascular intact. Full, normal range of motion. Neuro: Awake and alert, GCS 15, oriented to person, place, time, and situation. Cranial nerves II-XII grossly intact. Motor strength 5/5 in all extremities. Sensory grossly intact. Cerebellar exam normal. Normal gait. Psych: Awake, alert, with orientation to person, place and time. Behavior, mood, and affect are within normal limits. 14:37 Cardiovascular: Rate: tachycardic, Rhythm: regular, Pulses: Pulses are 4+ in bilateral radial, brachial, femoral, popliteal, posterior tibial and and dorsalis pedis arteries.. Heart sounds: normal, normal S1and S2, no S3 or S4, no murmur, no rub, no gallop, Edema: 1+ edema to level of right midcalf, JVD: is not appreciated, Bilateral blood pressure: is equal. 15:06 Abdomen/GI: Rectal exam: Prostate: normal, rectal tone normal, Stool: guaiac positive, daniele trace, no brbpr, no melena. Vital Signs: 14:35 BP 98 / 62; Pulse 120; Resp 18; Temp 99.0(TE); Pulse Ox 97% on R/A; Weight 65.77 kg; Height 5 ft. 7 in. (170.18 cm); Pain 10/10; 14:45 BP 92 / 59; Pulse 117; Resp 18; Pulse Ox 96% on R/A; hj 15:25 BP 92 / 62; Pulse 104; Resp 18; Pulse Ox 98% on R/A; hj 15:30 BP 103 / 82; Pulse 101; Resp 18; Pulse Ox 100% on 2 lpm NC; hj 15:45 BP 92 / 60; Pulse 106; Resp 18; Pulse Ox 100% on 2 lpm NC; hj 16:04 BP 102 / 60; Pulse 98; Resp 18; Pulse Ox 98% on 2 lpm NC; hj 17:05 BP 93 / 61; Pulse 94; Resp 18; Pulse Ox 100% on 2 lpm NC; hj 14:35 Body Mass Index 22.71 (65.77 kg, 170.18 cm) MDM: 14:33 Patient medically screened. [facility] 14:40 Data reviewed: vital signs, nurses notes, lab test result(s), EKG, radiologic studies, [facility] CT scan, plain films. 07/06 14:36 Order name: Basic Metabolic Panel; Complete Time: 15:21 [facility] 07/06 14:36 Order name: CBC with Diff; Complete Time: 16:37 [facility] 07/06 14:36 Order name: LFT's; Complete Time: 15:21 [facility] 07/06 14:36 Order name: Magnesium; Complete Time: 15:21 [facility] 07/06 14:36 Order name: NT PRO-BNP; Complete Time: 15:21 [facility] 07/06 14:36 Order name: PT-INR; Complete Time: 15:04 [facility] 07/06 14:36 Order name: Troponin (emerg Dept Use Only); Complete Time: 15:21 [facility] 07/06 14:36 Order name: XRAY Chest (1 view); Complete Time: 16:37 [facility] 07/06 14:36 Order name: Lipase; Complete Time: 15:21 [facility] 07/06 14:36 Order name: Type And Screen [facility] 07/06 15:03 Order name: Manual Differential; Complete Time: 16:37 [facility] 07/06 15:10 Order name: Packed RBC Leukored [facility] 07/06 14:36 Order name: EKG; Complete Time: 14:38 [facility] 07/06 14:36 Order name: Cardiac monitoring; Complete Time: 14:37 [facility] 07/06 14:36 Order name: EKG - Nurse/Tech; Complete Time: 14:37 [facility] 07/06 14:36 Order name: IV Saline Lock; Complete Time: 14:37 [facility] 07/06 14:36 Order name: Labs collected and sent; Complete Time: 14:43 [facility] 07/06 14:36 Order name: O2 Per Protocol; Complete Time: 14:37 [facility] 07/06 14:36 Order name: O2 Sat Monitoring; Complete Time: 14:37 [facility] 07/06 14:41 Order name: CT Abd/Pelvis - Without Contrast; Complete Time: 16:37 [facility] 07/06 15:04 Order name: Transfuse; Complete Time: 16:50 [facility] Administered Medications: 14:37 Drug: ProTONIX 40 mg Route: IVP; Site: right forearm; hj 15:09 Follow up: Response: No adverse reaction hj 14:37 Drug: NS 0.9% 500 ml Route: IV; Rate: bolus; Site: left forearm; hj 15:08 Follow up: IV Status: Completed infusion; IV Intake: 500ml hj 14:45 Drug: NS 0.9% 1000 ml Route: IV; Rate: 125 ml/hr; Site: right forearm; hj 15:09 Follow up: IV Status: Infusion continued upon transfer hj 15:06 Drug: Flagyl 500 mg Volume: 100 ml; Route: IVPB; Rate: 200 ml/hr; Infused Over: 30 hj mins; Site: right forearm; 15:17 Follow up: IV Status: Completed infusion; Infusion continued hj 15:21 Drug: Cipro 400 mg Volume: 200 ml; Route: IVPB; Infused Over: 60 mins; Site: left hj forearm; 15:26 Follow up: IV Status: Infusion continued upon transfer hj 16:39 Drug: Magnesium Sulfate 1 grams Route: IVPB; Infused Over: 1 hrs; Site: right forearm; hj 17:05 Follow up: IV Status: Infusion continued upon transfer Disposition: 07/06/19 15:[address] [facility]. Diagnosis are Gastrointestinal hemorrhage, unspecified, Abdominal tenderness, Hypotension - resolved, Anemia, unspecified, Elevated white blood cell count, Hypomagnesemia. - Reason for transfer: Higher level of care. - Accepting physician is to [facility]. - Condition is Fair. - Problem is new. - Symptoms have improved. Signatures: Dispatcher [employer] [facility] Eric Barcenas MD MD cha Joaquin, Henry, RN RN hj Corrections: (The following items were deleted from the chart) 15:10 15:08 BB Add On+BB.LAB.BRZ ordered. [facility] 15:23 15:06 07/06/2019 15:[address] [facility]. Diagnosis is daniele Gastrointestinal hemorrhage, unspecified; Abdominal tenderness; Hypotension; Anemia, unspecified. Reason for transfer: Higher level of care. Accepting physician is to [facility]. Condition is Fair. Problem is new. Symptoms have improved. [facility] 16:39 15:23 07/06/2019 15:[address] [facility]. Diagnosis is daniele Gastrointestinal hemorrhage, unspecified; Abdominal tenderness; Hypotension - resolved; Anemia, unspecified; Elevated white blood cell count. Reason for transfer: Higher level of care. Accepting physician is to [facility]. Condition is Fair. Problem is new. Symptoms have improved. [facility] 17:06 16:39 07/06/2019 15:[address] [facility]. Diagnosis is hj Gastrointestinal hemorrhage, unspecified; Abdominal tenderness; Hypotension - resolved; Anemia, unspecified; Elevated white blood cell count; Hypomagnesemia. Reason for transfer: Higher level of care. Accepting physician is to [facility]. Condition is Fair. Problem is new. Symptoms have improved. daniele
[2019-07-06 15:10] LABS: BUN Blood Urea Nitrogen 10 mg/dL (7-18); Bicarbonate 25 mmol/L (21-32); Glucose Level 197 mg/dL (74-106); Potassium 3.5 mmol/L (3.5-5.1); Sodium Level 142 mmol/L (136-145)
[2019-07-06 15:11] LABS: ALT/SGPT 13 U/L (12-78); AST/SGOT 9 U/L (15-37); Albumin 1.7 g/dL (3.4-5.0); Alkaline Phosphatase 64 U/L (45-117); Bilirubin Direct < 0.1 mg/dL (0-0.2); Bilirubin Total 0.2 mg/dL (0.2-1.0); Magnesium 1.6 mg/dL (1.8-2.4); Protein, Total 4.6 g/dL (6.4-8.2); Troponin (Emerg Dept Use Only) < 0.02 ng/mL (0.0-0.045)
[2019-07-06] MEDS ORDERED: METRONIDAZOLE 500mg IVPB 500 MG/100 ML BAG IV ONE (15:13)
[2019-07-06] MEDS ORDERED: CIPROFLOXACIN 400mg IV 400 MG/200 ML BAG IV ONE (15:13)
[2019-07-06 15:15] LABS: Lipase 50 U/L (73-393); NT PRO-BNP 48 pg/mL (<125)
--- NOTE | 2019-07-06 15:19 | RAD REPORT ---
EXAM DESCRIPTION: Spring Single View07/06/2019 3:11 pm CLINICAL HISTORY: cough COMPARISON: January 2019 FINDINGS: The lungs appear clear of acute infiltrate. The heart is normal size Old rib fractures IMPRESSION: No acute abnormalities displayed
[2019-07-06 15:38] LABS: Blood Morphology Comment NOT SEEN (NOT SEEN); Platelet Estimate ADEQ
--- NOTE | 2019-07-06 15:40 | RAD REPORT ---
EXAM DESCRIPTION: CT - Abdomen Pelvis Wo Contrast - 07/06/2019 3:02 pm CLINICAL HISTORY: Abdominal pain and rectal bleeding COMPARISON: 2016 TECHNIQUE: Computed axial tomography of the abdomen and pelvis was obtained. IV and oral contrast we re not requested. All CT scans are performed using dose optimization technique as appropriate and may include automated exposure control or mA/KV adjustment according to patient size. FINDINGS: The evaluation of solid organs, vessels and bowel is limited secondary to the lack of con trast administration. Small hepatic cysts. The spleen, pancreas and adrenals appear grossly normal. Small bilateral nonobst ructing renal calculi Appear grossly normal. Marked old compression fracture L5 vertebral body There is no evidence of diverticulitis. Postsurgical changes of a right hemicolectomy are noted. Bowel caliber and wall thickness is normal. Bilateral hip arthroplasties IMPRESSION: Small bilateral nonobstructing renal calculi
[2019-07-06] MEDS ORDERED: MAGNESIUM SULFATE 1 gm IVPB 1 GM/100 ML BAG IV ONE (16:46)
[2019-07-06 18:04] VITALS: TEMP 99
[2019-07-06 18:12] VITALS: BP 93/61; O2SAT 100
--- NOTE | 2019-07-07 08:37 | EKG ---
Test Date: 2019-07-06 Test Time: 14:29:21 Drawing Hand: MEASUREMENT RESULTS: Intervals: Rate: 115 NV: 120 QRSD: 126 QT: 344 QTc: 475 [place]: P: 44 NV: 120 QRS: -27 T: 5 INTERPRETIVE STATEMENTS: Sinus tachycardia Right bundle branch block Inferior infarct, age undetermined Abnormal ECG Compared to ECG 06/20/2019 09:37:07 Myocardial infarct finding now present Sinus rhythm no longer present Left-axis deviation no longer present Electronically Signed On 07-07-19 08:36:06 CDT by Mathieu Jorgensen
== END 2019-07-06 17:06 | disposition short-term general hospital (02) ==
LOC: ER 14:28
DX: K92.2 Gastrointestinal hemorrhage, unspecified (principal); R10.9 Unspecified abdominal pain; I95.9 Hypotension, unspecified; D64.9 Anemia, unspecified; E83.42 Hypomagnesemia; D72.829 Elevated white blood cell count, unspecified; Z88.6 Allergy status to analgesic agent; Z88.8 Allergy status to other drugs, medicaments and biological substances
CPT/HCPCS: 96365; 96361; 93005; 85025; 80048; 36415; 86900; 83735; 86850; 85610; 86901; 80076; 84484; 83690; 86922 ×2; 83880; 74176; 71045; 96375; 99285; C9113; J3475; P9016; J7030; J0744

== ENCOUNTER 2019-09-13 10:06 | Emergency (ER) | payer OTHER ==
--- NOTE | 2019-09-13 11:28 | RAD REPORT ---
EXAM DESCRIPTION: RAD - Chest Pa And Lat (2 Views) - 09/13/2019 11:11 am CLINICAL HISTORY: COUGH COMPARISON: July 06, 2019 TECHNIQUE: PA and lateral views of the chest were obtained. FINDINGS: The lungs are clear of a peripheral mass or consolidation. Underlying interstitial pattern is similar to comparison. Left costophrenic angle blunting is stable. Heart size is normal and alistair tral vasculature is within normal limits. No pleural effusion or pneumothorax seen. Old right-sided rib deformities are stable. No aortic abnormality. IMPRESSION: No acute cardiopulmonary process.
--- NOTE | 2019-09-13 11:54 | ER ---
Nurse's Notes [facility] Name: Nabor Barrow Jr Age: 54 yrs Sex: Male : 1965 Arrival Date: 09/13/2019 Time: 10:13 Bed 18 Private MD: Dexter Bravo Diagnosis: Bronchitis, not specified as acute or chronic Presentation: 09/13 10:23 Presenting complaint: Patient states: feeling bad for 2 days, headache and sore throat em for 2 days, unknown fever. Transition of care: patient was not received from another setting of care. Onset of symptoms was August 11, 2019. Risk Assessment: Do you want to hurt yourself or someone else? Patient reports no desire to harm self or others. Initial Sepsis Screen: Does the patient meet any 2 criteria? No. Patient's initial sepsis screen is negative. Does the patient have a suspected source of infection? No. Patient's initial sepsis screen is negative. Care prior to arrival: None. 10:23 Method Of Arrival: Wheelchair em 10:30 Acuity: INNA 4 iw Historical: - Allergies: 10:27 Aspirin; em 10:27 azathioprine sodium; em 10:27 Demerol; em 10:27 Imuran; em 10:27 Lyrica; em 10:27 NSAIDS (Non-Steroidal Anti-Inflamma; em - PMHx: 10:27 Arthritis; Chronic pain; Hypertension; Kidney stones; psoriatic arthirits; stroke 2009; em - PSHx: 10:27 Cholecystectomy; BTK amputation, left; jacob. hip replacement; right shoulder em replacement; hemorrhoid sx; - Immunization history:: Flu vaccine is not up to date. - Social history:: Smoking status: Patient/guardian denies using tobacco. - Ebola Screening: : Patient negative for fever greater than or equal to 101.5 degrees Fahrenheit, and additional compatible Ebola Virus Disease symptoms Patient denies exposure to infectious person Patient denies travel to an Ebola-affected area in the 21 days before illness onset No symptoms or risks identified at this time. Screenin:23 Abuse screen: Denies threats or abuse. Nutritional screening: No deficits noted. em Tuberculosis screening: No symptoms or risk factors identified. Fall Risk None identified. Assessment: 10:23 General: Appears in no apparent distress. comfortable, Behavior is calm, cooperative, em Reports fever for 1-2 days, feeling ill for 1-2 days. Pain: Complains of pain in "sore throat and body aches" Pain currently is 4 out of 10 on a pain scale. Neuro: Level of Consciousness is awake, alert, obeys commands, Oriented to person, place, time, situation, Appropriate for age. Cardiovascular: Capillary refill < 3 seconds Patient's skin is warm and dry. Respiratory: Reports cough that is productive, Airway is patent Respiratory effort is even, unlabored, Respiratory pattern is regular, symmetrical, Breath sounds are clear bilaterally. GI: Abdomen is flat, Patient currently denies nausea, vomiting. EENT: Oral mucosa is moist. Throat is clear is pink Reports pain when swallowing. Derm: Skin is intact, is healthy with good turgor, Skin is pink, warm \\T\\ dry. Musculoskeletal: Capillary refill < 3 seconds, Range of motion: intact in all extremities. 11:56 Reassessment: Patient appears in no apparent distress at this time. Patient and/or em family updated on plan of care and expected duration. Pain level reassessed. Patient is alert, oriented x 3, equal unlabored respirations, skin warm/dry/pink. Vital Signs: 10:27 BP 137 / 99; Pulse 97; Resp 18; Temp 98.5(O); Pulse Ox 99% on R/A; Weight 74.39 kg; em Height 5 ft. 9 in. (175.26 cm); Pain 4/10; 11:56 BP 153 / 101; Pulse 84; Resp 18; Pulse Ox 99% on R/A; em 10:27 Body Mass Index 24.22 (74.39 kg, 175.26 cm) em ED Course: 10:13 Patient arrived in ED. mr 10:13 Dexter Bravo DO is Private Physician. mr 10:15 Verna Santamaria, WU is Primary Nurse. iw 10:17 Beto Oliva NP is PHCP. pm1 10:17 Eric Barcenas MD is Attending Physician. pm1 10:23 Patient has correct armband on for positive identification. Bed in low position. Call em light in reach. Pulse ox on. NIBP on. 10:27 Arm band placed on. em 10:29 Chivo Forman LVN is Primary Nurse. em 10:30 Triage completed. iw 10:36 Flu and/or RSV swab sent to lab. Strep swab sent to lab. ms 12:05 No provider procedures requiring assistance completed. Patient did not have IV access em during this emergency room visit. Administered Medications: No medications were administered Outcome: 11:53 Discharge ordered by MD. pm1 12:05 Discharged to home via wheelchair, with family. em 12:05 Condition: good 12:05 Discharge instructions given to patient, family, Instructed on discharge instructions, follow up and referral plans. medication usage, Demonstrated understanding of instructions, follow-up care, medications, Prescriptions given X 3. 12:08 Patient left the ED. em Signatures: Dina Tam mr Dickson, Chivo, OLEOMARGARINE MAKER OLEOMARGARINE MAKER em Verna Santamaria RN RN Margy Witt ms Beto Oliva, [employer] CL[employer] pm1 Corrections: (The following items were deleted from the chart) 10:35 10:30 Acuity: INNA 3 iw iw
--- NOTE | 2019-09-13 11:54 | EDPHYS ---
Physician Documentation [facility] Name: Nabor Barrow Jr Age: 54 yrs Sex: Male : 1965 Arrival Date: 09/13/2019 Time: 10:13 Bed 18 Private MD: Dexter Bravo ED Physician Eric Barcenas HPI: 09/13 10:55 This 54 yrs old Male presents to ER via Wheelchair with complaints of Flu pm1 Symptoms. 10:55 The patient or guardian reports cough, with productive sputum, that is white. Onset: pm1 The symptoms/episode began/occurred 2 day(s) ago. Severity of symptoms: in the emergency department the symptoms are unchanged. Modifying factors: The symptoms are alleviated by nothing, the symptoms are aggravated by nothing. Associated signs and symptoms: Pertinent positives: sore throat, flu like symptoms, body aches, headache, Pertinent negatives: chest pain, diarrhea, ear ache, fever, vomiting, shortness of breath. 2 years ago had the flu. He is presenting to the ER with concerns that he has the flu. The patient has been recently seen by a physician: Saw new PCP yesterday. Did not complain of his cough to her. Historical: - Allergies: 10:27 Aspirin; em 10:27 azathioprine sodium; em 10:27 Demerol; em 10:27 Imuran; em 10:27 Lyrica; em 10:27 NSAIDS (Non-Steroidal Anti-Inflamma; em - PMHx: 10:27 Arthritis; Chronic pain; Hypertension; Kidney stones; psoriatic arthirits; stroke 2009; em - PSHx: 10:27 Cholecystectomy; BTK amputation, left; jacob. hip replacement; right shoulder em replacement; hemorrhoid sx; - Immunization history:: Flu vaccine is not up to date. - Social history:: Smoking status: Patient/guardian denies using tobacco. - Ebola Screening: : Patient negative for fever greater than or equal to 101.5 degrees Fahrenheit, and additional compatible Ebola Virus Disease symptoms Patient denies exposure to infectious person Patient denies travel to an Ebola-affected area in the 21 days before illness onset No symptoms or risks identified at this time. ROS: 10:55 Constitutional: Negative for fever, chills, and weight loss, Eyes: Negative for injury, pm1 pain, redness, and discharge. 10:55 Neck: Negative for injury, pain, and swelling, Cardiovascular: Negative for chest pain, palpitations, and edema. 10:55 Abdomen/GI: Negative for abdominal pain, nausea, vomiting, diarrhea, and constipation, Back: Negative for injury and pain, : Negative for injury, bleeding, discharge, and swelling, MS/Extremity: Negative for injury and deformity, Skin: Negative for injury, rash, and discoloration. 10:55 ENT: Positive for sore throat, Negative for ear pain, difficulty swallowing, difficulty handling secretions, hoarseness. 10:55 Respiratory: Positive for cough, with white sputum, Negative for shortness of breath, wheezing. 10:55 Neuro: Positive for headache, Negative for dizziness, numbness, tingling, weakness. Exam: 10:55 Constitutional: This is a well developed, well nourished patient who is awake, alert, pm1 and in no acute distress. Head/Face: Normocephalic, atraumatic. Eyes: Pupils equal round and reactive to light, extra-ocular motions intact. Lids and lashes normal. Conjunctiva and sclera are non-icteric and not injected. Cornea within normal limits. Periorbital areas with no swelling, redness, or edema. ENT: Nares patent. No nasal discharge, no septal abnormalities noted. Tympanic membranes are normal and external auditory canals are clear. Oropharynx with no redness, swelling, or masses, exudates, or evidence of obstruction, uvula midline. Mucous membranes moist. Neck: Trachea midline, no thyromegaly or masses palpated, and no cervical lymphadenopathy. Supple, full range of motion without nuchal rigidity, or vertebral point tenderness. No Meningismus. Chest/axilla: Normal chest wall appearance and motion. Nontender with no deformity. No lesions are appreciated. Cardiovascular: Regular rate and rhythm with a normal S1 and S2. No gallops, murmurs, or rubs. Normal PMI, no JVD. No pulse deficits. Respiratory: Lungs have equal breath sounds bilaterally, clear to auscultation and percussion. No rales, rhonchi or wheezes noted. No increased work of breathing, no retractions or nasal flaring. Abdomen/GI: Soft, non-tender, with normal bowel sounds. No distension or tympany. No guarding or rebound. No evidence of tenderness throughout. Back: No spinal tenderness. No costovertebral tenderness. Full range of motion. Skin: Warm, dry with normal turgor. Normal color with no rashes, no lesions, and no evidence of cellulitis. 10:55 Musculoskeletal/extremity: Extremities: grossly normal except: noted in the Left BKA: ROM: intact in all extremities, Circulation is intact in all extremities. 10:55 Skin: Appearance: normal except for affected area, consistent with psoriasis, on the face. 10:55 Neuro: Orientation: is normal, Mentation: is normal, Motor: is normal, moves all fours, Sensation: is normal, no obvious gross deficits. Vital Signs: 10:27 BP 137 / 99; Pulse 97; Resp 18; Temp 98.5(O); Pulse Ox 99% on R/A; Weight 74.39 kg; em Height 5 ft. 9 in. (175.26 cm); Pain 4/10; 11:56 BP 153 / 101; Pulse 84; Resp 18; Pulse Ox 99% on R/A; em 10:27 Body Mass Index 24.22 (74.39 kg, 175.26 cm) em MDM: 10:18 Patient medically screened. [facility] 10:59 Data reviewed: vital signs. Data interpreted: Pulse oximetry: on room air is 99 %. pm1 Interpretation: normal. 11:53 Counseling: I had a detailed discussion with the patient and/or guardian regarding: the pm1 historical points, exam findings, and any diagnostic results supporting the discharge/admit diagnosis, lab results, radiology results, the need for outpatient follow up, to return to the emergency department if symptoms worsen or persist or if there are any questions or concerns that arise at home. 09/13 10:26 Order name: Flu pm1 09/13 10:26 Order name: Strep pm1 09/13 10:33 Order name: Chest Pa And Lat (2 Views) XRAY pm1 09/13 10:52 Order name: Group A Streptococcus Rapid Sc; Complete Time: 11:22 EDMS 09/13 10:54 Order name: Influenza Screen (A ; Complete Time: 11:22 EDMS 09/13 11:44 Order name: RAD; Complete Time: 11:52 EDMS Administered Medications: No medications were administered Disposition: 09/13/19 11:53 Discharged to Home. Impression: Bronchitis, not specified as acute or chronic. - Condition is Stable. - Discharge Instructions: Acute Bronchitis, Adult, How to Use an Inhaler, Cough, Adult. - Prescriptions for Medrol (Zev) 4 mg Oral Tablets, Dose Pack - take 1 tablet by ORAL route as directed - follow package instructions; 1 packet. Albuterol Sulfate 90 mcg/actuation - inhale 1-2 puff by INHALATION route every 4-6 hours; 1 Inhaler. Guaifenesin AC 10- 100 mg/5 mL Oral Liquid - take 10 milliliter by ORAL route every 4 hours As needed; 240 milliliter. - Medication Reconciliation Form, Thank You Letter, Antibiotic Education, Prescription Opioid Use, Work release form form. - Follow up: Emergency Department; When: As needed; Reason: Worsening of condition. Follow up: Private Physician; When: 2 - 3 days; Reason: Recheck today's complaints, Continuance of care, Re-evaluation by your physician. - Problem is new. - Symptoms have improved. Addendum: 09/14/2019 13:22 Co-signature as Attending Physician, Eric Barcenas MD I agree with the assessment and c pineda plan of care. Signatures: Dispatcher [employer] Eric Leary MD MD cha Munoz, Edgar, PRODUCT OWNER PRODUCT OWNER em Beto Oliva, ESTIMATOR AND DRAFTER ESTIMATOR AND DRAFTER pm1 Corrections: (The following items were deleted from the chart) 09/13 12:08 11:53 09/13/2019 11:53 Discharged to Home. Impression: Bronchitis, not specified as em acute or chronic. Condition is Stable. Forms are Medication Reconciliation Form, Thank You Letter, Antibiotic Education, Prescription Opioid Use. Follow up: Emergency Department; When: As needed; Reason: Worsening of condition. Follow up: Private Physician; When: 2 - 3 days; Reason: Recheck today's complaints, Continuance of care, Re-evaluation by your physician. Problem is new. Symptoms have improved. pm1
[2019-09-13 12:16] VITALS: TEMP 98.5; O2SAT 99
[2019-09-13 12:18] VITALS: BP 153/101
--- OUTSIDE RECORDS SUMMARY | 2019-09-15 06:15 | XMS REPORT ---
:1965 [facility] Address [address] [place] [address] [address] [place] [address] Care Team Providers Name Role Phone NALDO CLEMENT DEANGELO Unavailable Unavailable Problems This patient has no known problems. Allergies, Adverse Reactions, Alerts This patient has no known allergies or adverse reactions. Medications This patient has no known medications. Results Test Description Test Time Test Comments Text Results Atomic Results Result Comments BLOOD CULTURE 2019-07-18 08:01:00 Test Item Value Reference Range Comments CULTURE (BEAKER) (test fjed=3452) No growth in 5 days BLOOD [id number] 08:01:00 Test Item Value Reference Range Comments CULTURE (BEAKER) (test eumc=4472) No growth in 5 days BASIC METABOLIC [id number] 06:08:00 Test Item Value Reference Range Comments SODIUM (BEAKER) (test 140 meq/L 136-145 mqjk=411) POTASSIUM (BEAKER) (test 3.8 meq/L 3.5-5.1 tsos=698) CHLORIDE (BEAKER) (test 106 meq/L 98-107 bamo=149) CO2 (BEAKER) (test 32 meq/L 22-29 xijg=792) BLOOD UREA NITROGEN 13 mg/dL 7-21 (BEAKER) (test kaol=849) CREATININE (BEAKER) (test 0.57 mg/dL 0.57-1.25 thhl=364) GLUCOSE RANDOM (BEAKER) 91 mg/dL 70-105 (test tytj=200) CALCIUM (BEAKER) (test 7.6 mg/dL 8.4-10.2 jxle=046) EGFR (BEAKER) (test 150 mL/min/1.73 sq m ESTIMATED GFR IS NOT uwsd=4725) ACCURATE CREATININE CLEARANCE IN PREDICTING GLOMERULAR FILTRATION RATE. ESTIMATED GFR IS NOT APPLICABLE FOR DIALYSIS PATIENTS. CBC W/PLT COUNT & AUTO [id number] 07:49:00 Test Item Value Reference Range Comments WHITE BLOOD CELL COUNT (BEAKER) (test dzqw=186) 32.1 K/ L 3.5-10.5 RED BLOOD CELL COUNT (BEAKER) (test mchu=972) 3.78 M/ L 4.63-6.08 HEMOGLOBIN (BEAKER) (test rxau=552) 10.5 GM/DL 13.7-17.5 HEMATOCRIT (BEAKER) (test vbuh=178) 35.3 % 40.1-51.0 MEAN CORPUSCULAR VOLUME (BEAKER) (test xvry=037) 93.4 fL 79.0-92.2 MEAN CORPUSCULAR HEMOGLOBIN (BEAKER) (test 27.8 pg 25.7-32.2 hxyg=032) MEAN CORPUSCULAR HEMOGLOBIN CONC (BEAKER) (test 29.7 GM/DL 32.3-36.5 lxzi=676) RED CELL DISTRIBUTION WIDTH (BEAKER) (test 23.3 % 11.6-14.4 uhmp=568) PLATELET COUNT (BEAKER) (test cpul=793) 495 K/CU MM 150-450 MEAN PLATELET VOLUME (BEAKER) (test xqmw=421) 9.8 fL 9.4-12.4 NUCLEATED RED BLOOD CELLS (BEAKER) (test 1 /100 WBC 0-0 bwoc=526) (CELLAVISION MANUAL DIFF)2019-07-15 07:49:00 Test Item Value Reference Range Comments NEUTROPHILS - REL (CELLAVISION)(BEAKER) (test 88 % strp=7137) LYMPHOCYTES - REL (CELLAVISION)(BEAKER) (test 5 % zluf=0438) MONOCYTES - REL (CELLAVISION)(BEAKER) (test 4 % zllt=0829) EOSINOPHILS - REL (CELLAVISION)(BEAKER) (test 2 % dutc=4095) METAMYELOCYTES - REL (CELLAVISION)(BEAKER) (test 1 % 0-0 eygc=9549) NEUTROPHILS - ABS (CELLAVISION)(BEAKER) (test 28.25 K/ul 1.78-5.38 dgam=3361) LYMPHOCYTES - ABS (CELLAVISION)(BEAKER) (test 1.61 K/ul 1.32-3.57 divx=6536) MONOCYTES - ABS (CELLAVISION)(BEAKER) (test 1.28 K/uL 0.30-0.82 litd=1139) EOSINOPHILS - ABS (CELLAVISION)(BEAKER) (test 0.64 K/uL 0.04-0.54 wznp=2757) METAMYELOCYTES - ABS (CELLAVISION)(BEAKER) (test 0.32 K/uL 0.00-0.00 qwwf=0857) TOTAL COUNTED (BEAKER) (test isjf=2874) 100 MANUAL NRBC PER 100 CELLS (BEAKER) (test 1 /100 WBC 0-0 qhrm=0143) WBC MORPHOLOGY (BEAKER) (test ltlo=040) Normal PLT MORPHOLOGY (BEAKER) (test tjww=659) Normal POLYCHROMATOPHILLIC RBCS(BEAKER) (test jusn=171) 2+ moderate HYPOCHROMIA (BEAKER) (test dqqr=166) 1+ few ANISOCYTOSIS (BEAKER) (test pysl=959) 2+ moderate MACROCYTES (BEAKER) (test rtss=259) 1+ few POIKILOCYTES (BEAKER) (test fmvw=745) 1+ few OVALOCYTES (BEAKER) (test iqol=035) 1+ few TEAR DROP CELLS (BEAKER) (test czbg=142) 1+ few BASOPHILIC STIPPLING (BEAKER) (test ywws=667) Present ARTIFACT (CELLAVISION)(BEAKER) (test vbut=8603) Present HELMET CELLS (CELLAVISION)(BEAKER) (test 1+ few vnpr=6030) PLATELET CONCENTRATION (CELLAVISION)(BEAKER) Increased (test eipb=9356) Received comment: User comments: Slide comments:BASIC METABOLIC [id number] 05:04:00 Test Item Value Reference Range Comments SODIUM (BEAKER) (test 142 meq/L 136-145 sfwx=286) POTASSIUM (BEAKER) (test 3.2 meq/L 3.5-5.1 krcy=116) CHLORIDE (BEAKER) (test 105 meq/L 98-107 qhzf=093) CO2 (BEAKER) (test 32 meq/L 22-29 ledz=623) BLOOD UREA NITROGEN 11 mg/dL 7-21 (BEAKER) (test xaxp=163) CREATININE (BEAKER) (test 0.60 mg/dL 0.57-1.25 xagn=472) GLUCOSE RANDOM (BEAKER) 120 mg/dL 70-105 (test haig=631) CALCIUM (BEAKER) (test 7.9 mg/dL 8.4-10.2 uvzk=903) EGFR (BEAKER) (test 141 mL/min/1.73 sq m ESTIMATED GFR IS NOT rumt=1142) ACCURATE CREATININE CLEARANCE IN PREDICTING GLOMERULAR FILTRATION RATE. ESTIMATED GFR IS NOT APPLICABLE FOR DIALYSIS PATIENTS. CBC W/PLT COUNT & AUTO [id number] 09:25:00 Test Item Value Reference Range Comments WHITE BLOOD CELL COUNT (BEAKER) (test pbma=747) 27.2 K/ L 3.5-10.5 RED BLOOD CELL COUNT (BEAKER) (test syma=680) 3.06 M/ L 4.63-6.08 HEMOGLOBIN (BEAKER) (test kskc=276) 9.0 GM/DL 13.7-17.5 HEMATOCRIT (BEAKER) (test aojl=246) 28.8 % 40.1-51.0 MEAN CORPUSCULAR VOLUME (BEAKER) (test mqtm=469) 94.1 fL 79.0-92.2 MEAN CORPUSCULAR HEMOGLOBIN (BEAKER) (test 29.4 pg 25.7-32.2 fhwt=123) MEAN CORPUSCULAR HEMOGLOBIN CONC (BEAKER) (test 31.3 GM/DL 32.3-36.5 umtc=774) RED CELL DISTRIBUTION WIDTH (BEAKER) (test 23.3 % 11.6-14.4 tlav=549) PLATELET COUNT (BEAKER) (test zkvx=303) 422 K/CU MM 150-450 MEAN PLATELET VOLUME (BEAKER) (test ggpb=626) 9.6 fL 9.4-12.4 NUCLEATED RED BLOOD CELLS (BEAKER) (test 1 /100 WBC 0-0 nkof=042) (CELLAVISION MANUAL DIFF)2019-07-14 09:25:00 Test Item Value Reference Range Comments NEUTROPHILS - REL (CELLAVISION)(BEAKER) (test 83 % toie=2635) LYMPHOCYTES - REL (CELLAVISION)(BEAKER) (test 5 % locb=0435) MONOCYTES - REL (CELLAVISION)(BEAKER) (test 9 % aooq=6813) BANDS - REL (CELLAVISION)(BEAKER) (test 2 % 0-10 kywa=4720) ATYPICAL LYMPHOCYTES - REL (CELLAVISION)(BEAKER) 1 % 0-0 (test sacn=6404) NEUTROPHILS - ABS (CELLAVISION)(BEAKER) (test 22.58 K/ul 1.78-5.38 oczj=2433) LYMPHOCYTES - ABS (CELLAVISION)(BEAKER) (test 1.36 K/ul 1.32-3.57 obvy=9403) MONOCYTES - ABS (CELLAVISION)(BEAKER) (test 2.45 K/uL 0.30-0.82 qcgy=4116) BANDS - ABS (CELLAVISION)(BEAKER) (test 0.54 K/uL 0.00-0.80 nxmm=6861) ATYPICAL LYMPHOCYTES - ABS (CELLAVISION)(BEAKER) 0.27 K/uL 0.00-0.00 (test wuxq=6884) TOTAL COUNTED (BEAKER) (test hkxr=2833) 100 WBC MORPHOLOGY (BEAKER) (test huez=117) Normal GIANT PLATELETS (BEAKER) (test snxc=667) Present LARGE PLT(BEAKER) (test thiy=0848) Present POLYCHROMATOPHILLIC RBCS(BEAKER) (test pfge=740) 2+ moderate ANISOCYTOSIS (BEAKER) (test rdkb=350) 1+ few MACROCYTES (BEAKER) (test xjni=224) 1+ few POIKILOCYTES (BEAKER) (test syss=468) 1+ few ELLIPTOCYTES (BEAKER) (test ylqv=474) 1+ few OVALOCYTES (BEAKER) (test pkjy=105) 1+ few TEAR DROP CELLS (BEAKER) (test ufiz=824) 1+ few STOMATOCYTES (BEAKER) (test sinf=097) 1+ few ABRAN CELLS (BEAKER) (test gwli=927) 1+ few BASOPHILIC STIPPLING (BEAKER) (test zjez=977) Present ARTIFACT (CELLAVISION)(BEAKER) (test demc=6450) Present PLATELET CONCENTRATION (CELLAVISION)(BEAKER) Adequate (test lqsb=6089) Received comment: User comments: Slide comments: WBC: SEGMENTED WITH TOXIC GRANULATIONS PRESENTBASIC METABOLIC [id number] 04:47:00 Test Item Value Reference Range Comments SODIUM (BEAKER) (test 142 meq/L 136-145 jmia=428) POTASSIUM (BEAKER) (test 3.5 meq/L 3.5-5.1 jvsj=604) CHLORIDE (BEAKER) (test 107 meq/L 98-107 yvgh=635) CO2 (BEAKER) (test 31 meq/L 22-29 kytn=986) BLOOD UREA NITROGEN 14 mg/dL 7-21 (BEAKER) (test uhgc=791) CREATININE (BEAKER) (test 0.62 mg/dL 0.57-1.25 vubr=274) GLUCOSE RANDOM (BEAKER) 129 mg/dL 70-105 (test sdrh=508) CALCIUM (BEAKER) (test 7.7 mg/dL 8.4-10.2 fryp=213) EGFR (BEAKER) (test 136 mL/min/1.73 sq m ESTIMATED GFR IS NOT jmpy=7790) ACCURATE CREATININE CLEARANCE IN PREDICTING GLOMERULAR FILTRATION RATE. ESTIMATED GFR IS NOT APPLICABLE FOR DIALYSIS PATIENTS. URINALYSIS W/ REFLEX URINE [id number] 12:15:00 Test Item Value Reference Range Comments COLOR (BEAKER) (test kyve=534) Yellow CLARITY (BEAKER) (test prvz=670) Hazy SPECIFIC GRAVITY UA (BEAKER) (test xyrj=879) 1.014 1.001-1.035 PH UA (BEAKER) (test xdjs=848) 7.5 5.0-8.0 PROTEIN UA (BEAKER) (test jfma=790) Negative Negative GLUCOSE UA (BEAKER) (test kcyx=644) Negative Negative KETONES UA (BEAKER) (test iebt=991) Negative Negative BILIRUBIN UA (BEAKER) (test kjqe=060) Negative Negative BLOOD UA (BEAKER) (test lybz=431) Negative Negative NITRITE UA (BEAKER) (test hyuv=055) Negative Negative LEUKOCYTE ESTERASE UA (BEAKER) (test gtwf=273) Negative Negative UROBILINOGEN UA (BEAKER) (test kypz=382) 0.2 mg/dL 0.2-1.0 RBC UA (BEAKER) (test lpln=657) 1 /HPF WBC UA (BEAKER) (test xrpe=308) 1 /HPF MUCUS (BEAKER) (test drsa=1573) Rare CALCIUM OXALATE CRYSTALS (BEAKER) (test hout=105) Rare AMORPHOUS CRYSTALS (BEAKER) (test jhtk=8274) Rare SOURCE(BEAKER) (test qvhm=7383) CBC W/PLT COUNT & AUTO [id number] 08:39:00 Test Item Value Reference Range Comments WHITE BLOOD CELL COUNT (BEAKER) (test hjcx=073) 31.9 K/ L 3.5-10.5 RED BLOOD CELL COUNT (BEAKER) (test vsrg=153) 3.12 M/ L 4.63-6.08 HEMOGLOBIN (BEAKER) (test rhst=294) 9.2 GM/DL 13.7-17.5 HEMATOCRIT (BEAKER) (test moxx=879) 29.7 % 40.1-51.0 MEAN CORPUSCULAR VOLUME (BEAKER) (test gtve=718) 95.2 fL 79.0-92.2 MEAN CORPUSCULAR HEMOGLOBIN (BEAKER) (test 29.5 pg 25.7-32.2 eyju=483) MEAN CORPUSCULAR HEMOGLOBIN CONC (BEAKER) (test 31.0 GM/DL 32.3-36.5 erxb=638) RED CELL DISTRIBUTION WIDTH (BEAKER) (test 23.9 % 11.6-14.4 ahjq=837) PLATELET COUNT (BEAKER) (test nhog=952) 386 K/CU MM 150-450 MEAN PLATELET VOLUME (BEAKER) (test rspe=230) 9.8 fL 9.4-12.4 NUCLEATED RED BLOOD CELLS (BEAKER) (test 1 /100 WBC 0-0 muvj=398) (CELLAVISION MANUAL DIFF)2019-07-13 08:39:00 Test Item Value Reference Range Comments NEUTROPHILS - REL (CELLAVISION)(BEAKER) (test 80 % udzf=3841) LYMPHOCYTES - REL (CELLAVISION)(BEAKER) (test 7 % olrs=9181) MONOCYTES - REL (CELLAVISION)(BEAKER) (test 10 % gjnw=5451) MYELOCYTES - REL (CELLAVISION)(BEAKER) (test 1 % 0-0 dqyo=1194) ATYPICAL LYMPHOCYTES - REL (CELLAVISION)(BEAKER) 2 % 0-0 (test vmhq=6395) NEUTROPHILS - ABS (CELLAVISION)(BEAKER) (test 25.52 K/ul 1.78-5.38 rloa=1107) LYMPHOCYTES - ABS (CELLAVISION)(BEAKER) (test 2.23 K/ul 1.32-3.57 oxtq=9316) MONOCYTES - ABS (CELLAVISION)(BEAKER) (test 3.19 K/uL 0.30-0.82 evpn=3400) MYELOCYTES-ABS (CELLAVISION)(BEAKER) (test 0.32 K/uL 0.00-0.00 uuja=4829) ATYPICAL LYMPHOCYTES - ABS (CELLAVISION)(BEAKER) 0.64 K/uL 0.00-0.00 (test tloq=8234) TOTAL COUNTED (BEAKER) (test vswa=7635) 100 WBC MORPHOLOGY (BEAKER) (test xrsc=820) Normal PLT MORPHOLOGY (BEAKER) (test hewd=616) Normal ANISOCYTOSIS (BEAKER) (test jgbl=663) 1+ few POIKILOCYTES (BEAKER) (test rknn=665) 1+ few ARTIFACT (CELLAVISION)(BEAKER) (test iprf=6054) Present PLATELET CONCENTRATION (CELLAVISION)(BEAKER) Adequate (test zkjs=4253) Received comment: User comments: Slide comments:BASIC METABOLIC [id number] 05:58:00 Test Item Value Reference Range Comments SODIUM (BEAKER) (test 142 meq/L 136-145 rlnn=896) POTASSIUM (BEAKER) (test 3.6 meq/L 3.5-5.1 mcvz=583) CHLORIDE (BEAKER) (test 107 meq/L 98-107 gwew=559) CO2 (BEAKER) (test 31 meq/L 22-29 guba=871) BLOOD UREA NITROGEN 14 mg/dL 7-21 (BEAKER) (test luwk=050) CREATININE (BEAKER) (test 0.58 mg/dL 0.57-1.25 cwgt=298) GLUCOSE RANDOM (BEAKER) 113 mg/dL 70-105 (test ixmw=871) CALCIUM (BEAKER) (test 7.9 mg/dL 8.4-10.2 wybq=092) EGFR (BEAKER) (test 147 mL/min/1.73 sq m ESTIMATED GFR IS NOT pqlh=7007) ACCURATE CREATININE CLEARANCE IN PREDICTING GLOMERULAR FILTRATION RATE. ESTIMATED GFR IS NOT APPLICABLE FOR DIALYSIS PATIENTS. RAD, HIP, 2 VIEWS, [id number] 01:46:00Reason for exam:->total hip arthoplasty with persistent leukocytosisFINAL REPORT CLINICAL HISTORY: Leukocytosis COMPARISON: None. FINDINGS: 2 views of the right hip are submitted. The examination is limited by osteopenia, which can obscure a subtle bony abnormality, and by exclusion of the inferior most margin of the femoral prosthesis stem. Within these limitations, no acute fracture or malalignment is identified. There is no evidence of hardware loosening or failure. No destructive bony lesion is present. Vascular calcifications are noted in the pelvis and right leg. Please note that the radiographic appearance of osteomyelitis lags behindclinical onset. If of further clinical concern, three-phase bone scan, nuclear medicine tagged whiteblood cell scan or MRI is recommended. Signed: Sabra Martinez MDReport Verified Date/Time: 07/13/2019 01: 46:35 Reading Location: [address] Reading Room RAD, KNEE, 3 VIEWS, [id number] 01:45:00Reason for exam:->hardware with leukocytosisFINAL REPORT CLINICAL HISTORY: Leukocytosis COMPARISON: None. FINDINGS: 4 views of the right knee are submitted. The examination is limited by osteopenia, which can obscure a subtle bony abnormality. The patient has undergone previous total knee arthroplasty. There is no evidence of hardware loosening or failure. No periprosthetic fracture is present. There is no destructive bony lesion. A small suprapatellar effusion is present. Vascular calcifications are noted in the leg. There is no unexpected radiopaque foreign body or soft tissue gas. Please note that the radiographic appearance of osteomyelitis lags behind clinical onset. If of further clinical concern, three-phase bone scan, nuclear medicine white blood cell scan or MRI is recommended. Signed: Sabra Martinez MDReport Verified Date/Time: 07/13/2019 01:45:04 Reading Location: [address] Reading Room RAD, KNEE, 3 VIEWS, [id number] 01:43:00Reason for exam:->leukocytosisFINAL REPORT CLINICAL HISTORY: Leukocytosis COMPARISON: None. FINDINGS: 4 views of the left knee are submitted. Diffuse osteopenia limits the examination. 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 There is a chronic appearing distal femoral fracture with lateral angulation of the distal fragment and knee joint prosthesis. Comparison with previous imaging would be helpful, if available elsewhere. No acute fracture is identified. No destructive bony lesion is seen. The indication margins of the tibia and fibula appear regular without bony erosion. No soft tissue gas is present. There is no large knee joint effusion. Please note that the radiographic appearance of osteomyelitis lags behind clinical onset. If of further clinical concern, three-phase bone scan, nuclear medicine tagged white blood cell scan or MRI is recommended. Signed: Sabra Martinez Verified Date/Time: 07/13/2019 01:43:49 Reading Location: [address] Reading Room RAD, CHEST, 1 VIEW, NON [id number] 01:42:00Reason for exam:->leukocytosisShould this be performed at the bedside?->YesFINAL REPORT History: Leukocytosis. Comparison: 07/06/2019 Findings: A single view of the chest is submitted. The cardiomediastinal contours are unremarkable. There is stable, mild elevation of the left hemidiaphragm. Blunting of the left costophrenic sulcus is similar to previous and may reflect pleural thickening or a trace, chronic effusion. There is no focal consolidation, pneumothorax, evidence of overt pulmonary edema or acute bony abnormality. Right shoulder arthroplasty hardware is partially visualized. Surgical clips overlie the right upper quadrant. Signed: Sabra Martinez Verified Date/Time: 07/13/2019 01:42:05 Reading Location: [address] Reading Room Electronically signed by: SABRA MARTINEZ M.D. on 01:42 AMRAD, HIP, 2 VIEWS, [id number] 01:40:00Reason for exam:-> total hip arthoplasty with persistent leukocytosisFINAL REPORT CLINICAL HISTORY: NARINDER with persistent leukocytosis COMPARISON: None. FINDINGS: 2 views of the left hip are submitted. There is diffuse osteopenia. The patient has undergone previous total hip arthroplasty. There is no acute fracture or malalignment. No destructive bony lesion is identified. There is no unexpected radiopaque foreign body. Vascular calcifications are noted in the pelvis and left leg. Signed: Sabra Martinez MDReport Verified Date/Time: 2018 01:40:58 Reading Location: [address] Reading Room CBC W/PLT COUNT & AUTO [id number] 10:58:00 Test Item Value Reference Range Comments WHITE BLOOD CELL COUNT (BEAKER) (test rytg=007) 30.9 K/ L 3.5-10.5 RED BLOOD CELL COUNT (BEAKER) (test ooea=732) 3.01 M/ L 4.63-6.08 HEMOGLOBIN (BEAKER) (test vcly=945) 9.0 GM/DL 13.7-17.5 HEMATOCRIT (BEAKER) (test fwbj=477) 28.0 % 40.1-51.0 MEAN CORPUSCULAR VOLUME (BEAKER) (test suai=274) 93.0 fL 79.0-92.2 MEAN CORPUSCULAR HEMOGLOBIN (BEAKER) (test 29.9 pg 25.7-32.2 ggiz=288) MEAN CORPUSCULAR HEMOGLOBIN CONC (BEAKER) (test 32.1 GM/DL 32.3-36.5 uibv=325) RED CELL DISTRIBUTION WIDTH (BEAKER) (test 23.9 % 11.6-14.4 drsp=795) PLATELET COUNT (BEAKER) (test nhog=525) 345 K/CU MM 150-450 MEAN PLATELET VOLUME (BEAKER) (test uzac=454) 9.4 fL 9.4-12.4 NUCLEATED RED BLOOD CELLS (BEAKER) (test 1 /100 WBC 0-0 aspe=549) (CELLAVISION MANUAL DIFF)2019-07-12 10:58:00 Test Item Value Reference Range Comments NEUTROPHILS - REL (CELLAVISION)(BEAKER) (test 89 % tizj=5723) LYMPHOCYTES - REL (CELLAVISION)(BEAKER) (test 2 % trzo=2884) MONOCYTES - REL (CELLAVISION)(BEAKER) (test 5 % edoc=9373) MYELOCYTES - REL (CELLAVISION)(BEAKER) (test 1 % 0-0 dpnf=1969) BANDS - REL (CELLAVISION)(BEAKER) (test 3 % 0-10 vcmx=2455) NEUTROPHILS - ABS (CELLAVISION)(BEAKER) (test 27.50 K/ul 1.78-5.38 ycuf=1588) LYMPHOCYTES - ABS (CELLAVISION)(BEAKER) (test 0.62 K/ul 1.32-3.57 sjjr=6741) MONOCYTES - ABS (CELLAVISION)(BEAKER) (test 1.55 K/uL 0.30-0.82 wbzg=5844) MYELOCYTES-ABS (CELLAVISION)(BEAKER) (test 0.31 K/uL 0.00-0.00 hhgi=6716) BANDS - ABS (CELLAVISION)(BEAKER) (test 0.93 K/uL 0.00-0.80 ehhk=0645) TOTAL COUNTED (BEAKER) (test iiwq=1280) 100 WBC MORPHOLOGY (BEAKER) (test qsjy=558) Normal GIANT PLATELETS (BEAKER) (test ktpx=571) Present LARGE PLT(BEAKER) (test dgjd=9120) Present POLYCHROMATOPHILLIC RBCS(BEAKER) (test svea=689) 2+ moderate HYPOCHROMIA (BEAKER) (test uqdt=094) 1+ few ANISOCYTOSIS (BEAKER) (test vmcp=808) 2+ moderate MICROCYTES (BEAKER) (test fgrc=347) 1+ few MACROCYTES (BEAKER) (test idqc=330) 2+ moderate POIKILOCYTES (BEAKER) (test hfzx=689) 1+ few ELLIPTOCYTES (BEAKER) (test ysup=750) 1+ few OVALOCYTES (BEAKER) (test fpjo=578) 1+ few ABRAN CELLS (BEAKER) (test xjiy=466) 1+ few BASOPHILIC STIPPLING (BEAKER) (test sgbk=456) Present ARTIFACT (CELLAVISION)(BEAKER) (test uvtw=3138) Present PLATELET CONCENTRATION (CELLAVISION)(BEAKER) Adequate (test hcxq=6070) Received comment: User comments: Slide comments:BLOOD [id number] 08:01:00 Test Item Value Reference Range Comments CULTURE (BEAKER) (test lmnw=5846) No growth in 5 days BLOOD [id number] 08:01:00 Test Item Value Reference Range Comments CULTURE (BEAKER) (test qsfq=3742) No growth in 5 days BASIC METABOLIC [id number] 05:59:00 Test Item Value Reference Range Comments SODIUM (BEAKER) (test 143 meq/L 136-145 fioe=973) POTASSIUM (BEAKER) (test 3.6 meq/L 3.5-5.1 ukzf=039) CHLORIDE (BEAKER) (test 110 meq/L 98-107 venp=203) CO2 (BEAKER) (test 30 meq/L 22-29 jfxj=402) BLOOD UREA NITROGEN 11 mg/dL 7-21 (BEAKER) (test cjzc=235) CREATININE (BEAKER) (test 0.62 mg/dL 0.57-1.25 pbxj=867) GLUCOSE RANDOM (BEAKER) 133 mg/dL 70-105 (test scdy=573) CALCIUM (BEAKER) (test 7.8 mg/dL 8.4-10.2 usps=663) EGFR (BEAKER) (test 136 mL/min/1.73 sq m ESTIMATED GFR IS NOT opvb=2648) ACCURATE CREATININE CLEARANCE IN PREDICTING GLOMERULAR FILTRATION RATE. ESTIMATED GFR IS NOT APPLICABLE FOR DIALYSIS PATIENTS. CBC W/PLT COUNT & AUTO [id number] 11:34:00 Test Item Value Reference Range Comments WHITE BLOOD CELL COUNT (BEAKER) (test lvob=468) 29.2 K/ L 3.5-10.5 RED BLOOD CELL COUNT (BEAKER) (test fblw=766) 3.17 M/ L 4.63-6.08 HEMOGLOBIN (BEAKER) (test wcit=852) 9.1 GM/DL 13.7-17.5 HEMATOCRIT (BEAKER) (test hgcq=501) 29.7 % 40.1-51.0 MEAN CORPUSCULAR VOLUME (BEAKER) (test cfwu=733) 93.7 fL 79.0-92.2 MEAN CORPUSCULAR HEMOGLOBIN (BEAKER) (test 28.7 pg 25.7-32.2 aqla=643) MEAN CORPUSCULAR HEMOGLOBIN CONC (BEAKER) (test 30.6 GM/DL 32.3-36.5 oeqk=840) RED CELL DISTRIBUTION WIDTH (BEAKER) (test 23.7 % 11.6-14.4 vmee=091) PLATELET COUNT (BEAKER) (test dziw=987) 297 K/CU MM 150-450 MEAN PLATELET VOLUME (BEAKER) (test pjaj=637) 10.5 fL 9.4-12.4 NUCLEATED RED BLOOD CELLS (BEAKER) (test 0 /100 WBC 0-0 nqgi=411) (CELLAVISION MANUAL DIFF)2019-07-11 11:34:00 Test Item Value Reference Range Comments NEUTROPHILS - REL (CELLAVISION)(BEAKER) (test 83 % mqve=6142) LYMPHOCYTES - REL (CELLAVISION)(BEAKER) (test 7 % cplx=7809) MONOCYTES - REL (CELLAVISION)(BEAKER) (test 5 % fegf=4395) METAMYELOCYTES - REL (CELLAVISION)(BEAKER) (test 3 % 0-0 vpab=7652) MYELOCYTES - REL (CELLAVISION)(BEAKER) (test 2 % 0-0 gjis=0495) NEUTROPHILS - ABS (CELLAVISION)(BEAKER) (test 24.24 K/ul 1.78-5.38 woqj=7667) LYMPHOCYTES - ABS (CELLAVISION)(BEAKER) (test 2.04 K/ul 1.32-3.57 rukx=7325) MONOCYTES - ABS (CELLAVISION)(BEAKER) (test 1.46 K/uL 0.30-0.82 ndub=0669) METAMYELOCYTES - ABS (CELLAVISION)(BEAKER) (test 0.88 K/uL 0.00-0.00 ubbg=4405) MYELOCYTES-ABS (CELLAVISION)(BEAKER) (test 0.58 K/uL 0.00-0.00 ocqq=7388) TOTAL COUNTED (BEAKER) (test rzuv=0191) 100 WBC MORPHOLOGY (BEAKER) (test ronb=874) Normal PLT MORPHOLOGY (BEAKER) (test gxpn=954) Normal POLYCHROMATOPHILLIC RBCS(BEAKER) (test bmjn=617) 2+ moderate ANISOCYTOSIS (BEAKER) (test xcbc=143) 1+ few MACROCYTES (BEAKER) (test uuef=228) 1+ few POIKILOCYTES (BEAKER) (test atei=009) 3+ many ABRAN CELLS (BEAKER) (test likc=353) 1+ few ARTIFACT (CELLAVISION)(BEAKER) (test njde=8219) Present PLATELET CONCENTRATION (CELLAVISION)(BEAKER) Adequate (test hkrt=4635) Received comment: User comments: Slide comments:[id number] 06:55:00 Test Item Value Reference Range Comments PROCALCITONIN (BEAKER) (test jxwm=8150) 0.61 ng/mL <0.05 SEPSIS RISK (ng/mL)Low: 0.05-0.50Intermediate: 0.51-2.00High: & gt;=2.01BASIC METABOLIC [id number] 06:43:00 Test Item Value Reference Range Comments SODIUM (BEAKER) (test 140 meq/L 136-145 vxci=488) POTASSIUM (BEAKER) (test 4.0 meq/L 3.5-5.1 ptiz=620) CHLORIDE (BEAKER) (test 110 meq/L 98-107 vhru=887) CO2 (BEAKER) (test 27 meq/L 22-29 mqcv=780) BLOOD UREA NITROGEN 8 mg/dL 7-21 (BEAKER) (test wxmu=288) CREATININE (BEAKER) (test 0.60 mg/dL 0.57-1.25 rgci=602) GLUCOSE RANDOM (BEAKER) 135 mg/dL 70-105 (test upfc=832) CALCIUM (BEAKER) (test 7.7 mg/dL 8.4-10.2 fcxa=119) EGFR (BEAKER) (test 141 mL/min/1.73 sq m ESTIMATED GFR IS NOT mbze=0421) ACCURATE CREATININE CLEARANCE IN PREDICTING GLOMERULAR FILTRATION RATE. ESTIMATED GFR IS NOT APPLICABLE FOR DIALYSIS PATIENTS. [id number] 06:36:00 Test Item Value Reference Range Comments MAGNESIUM (BEAKER) (test zuok=821) 2.0 mg/dL 1.6-2.6 [id number] 06:36:00 Test Item Value Reference Range Comments ALBUMIN (BEAKER) (test yjbh=9255) 2.3 g/dL 3.5-5.0 CALCIUM, [id number] 05:32:00 Test Item Value Reference Range Comments CALCIUM IONIZED (BEAKER) (test twnk=093) 1.09 mmol/L 1.12-1.27 PH, BLOOD (BEAKER) (test zyyk=9461) 7.42 [id number] 13:34:00 Test Item Value Reference Range Comments POTASSIUM (BEAKER) (test vxan=712) 3.6 meq/L 3.5-5.1 HEMOGLOBIN AND [id number] 12:50:00 Test Item Value Reference Range Comments HEMOGLOBIN (BEAKER) (test lxnv=274) 9.1 GM/DL 13.7-17.5 HEMATOCRIT (BEAKER) (test cvig=215) 29.0 % 40.1-51.0 MRSA [id number] 11:38:00 Test Item Value Reference Range Comments CULTURE (BEAKER) (test qfww=7664) No MRSA isolated POCT-GLUCOSE [id number] 06:38:00 Test Item Value Reference Range Comments POC-GLUCOSE METER (BEAKER) 134 mg/dL 70-110 TESTED AT [address] (test gcsk=0262) [facility] [id number] BASIC METABOLIC [id number] 05:06:00 Test Item Value Reference Range Comments SODIUM (BEAKER) (test 140 meq/L 136-145 rlrd=386) POTASSIUM (BEAKER) (test 3.5 meq/L 3.5-5.1 ssgo=436) CHLORIDE (BEAKER) (test 111 meq/L 98-107 omyl=493) CO2 (BEAKER) (test 28 meq/L 22-29 iggb=966) BLOOD UREA NITROGEN 6 mg/dL 7-21 (BEAKER) (test fxcy=071) CREATININE (BEAKER) (test 0.62 mg/dL 0.57-1.25 wyrc=325) GLUCOSE RANDOM (BEAKER) 141 mg/dL 70-105 (test irmd=853) CALCIUM (BEAKER) (test 7.4 mg/dL 8.4-10.2 hoyh=471) EGFR (BEAKER) (test 136 mL/min/1.73 sq m ESTIMATED GFR IS NOT bhbk=9581) ACCURATE CREATININE CLEARANCE IN PREDICTING GLOMERULAR FILTRATION RATE. ESTIMATED GFR IS NOT APPLICABLE FOR DIALYSIS PATIENTS. [id number] 05:02:00 Test Item Value Reference Range Comments MAGNESIUM (BEAKER) (test lifl=632) 2.0 mg/dL 1.6-2.6 CBC W/PLT COUNT & AUTO [id number] 04:53:00 Test Item Value Reference Range Comments WHITE BLOOD CELL COUNT (BEAKER) (test xscj=615) 25.6 K/ L 3.5-10.5 RED BLOOD CELL COUNT (BEAKER) (test iwlu=885) 2.94 M/ L 4.63-6.08 HEMOGLOBIN (BEAKER) (test ldrx=684) 8.4 GM/DL 13.7-17.5 HEMATOCRIT (BEAKER) (test dbbo=261) 26.7 % 40.1-51.0 MEAN CORPUSCULAR VOLUME (BEAKER) (test iedz=205) 90.8 fL 79.0-92.2 MEAN CORPUSCULAR HEMOGLOBIN (BEAKER) (test 28.6 pg 25.7-32.2 vncy=995) MEAN CORPUSCULAR HEMOGLOBIN CONC (BEAKER) (test 31.5 GM/DL 32.3-36.5 itey=613) RED CELL DISTRIBUTION WIDTH (BEAKER) (test 22.5 % 11.6-14.4 orrg=776) PLATELET COUNT (BEAKER) (test elrb=832) 239 K/CU MM 150-450 MEAN PLATELET VOLUME (BEAKER) (test zoxv=658) 10.0 fL 9.4-12.4 NUCLEATED RED BLOOD CELLS (BEAKER) (test 0 /100 WBC 0-0 uifs=709) NEUTROPHILS RELATIVE PERCENT (BEAKER) (test 86 % xlsr=500) LYMPHOCYTES RELATIVE PERCENT (BEAKER) (test 5 % epgi=046) MONOCYTES RELATIVE PERCENT (BEAKER) (test 6 % bxrd=158) EOSINOPHILS RELATIVE PERCENT (BEAKER) (test 0 % ffwi=753) BASOPHILS RELATIVE PERCENT (BEAKER) (test 0 % icyy=481) NEUTROPHILS ABSOLUTE COUNT (BEAKER) (test 21.92 K/ L 1.78-5.38 oupn=174) LYMPHOCYTES ABSOLUTE COUNT (BEAKER) (test 1.14 K/ L 1.32-3.57 vcem=362) MONOCYTES ABSOLUTE COUNT (BEAKER) (test 1.64 K/ L 0.30-0.82 cuyi=831) EOSINOPHILS ABSOLUTE COUNT (BEAKER) (test 0.01 K/ L 0.04-0.54 rfto=825) BASOPHILS ABSOLUTE COUNT (BEAKER) (test 0.04 K/ L 0.01-0.08 wyan=710) IMMATURE GRANULOCYTES-RELATIVE PERCENT (BEAKER) 3 % 0-1 (test zptd=6901) POCT-GLUCOSE [id number] 00:09:00 Test Item Value Reference Range Comments POC-GLUCOSE METER (BEAKER) 181 mg/dL 70-110 TESTED AT [address] (test bivc=1490) [place] [id number] POCT-GLUCOSE [id number] 19:24:00 Test Item Value Reference Range Comments POC-GLUCOSE METER (BEAKER) 121 mg/dL 70-110 TESTED AT [address] (test dssp=6380) [facility] [address] LACTIC ACID, [id number] 16:46:00 Test Item Value Reference Range Comments LACTATE BLOOD VENOUS (2) (BEAKER) (test 1.9 mmol/L 0.5-2.2 qvzb=2759) HEMOGLOBIN AND [id number] 16:36:00 Test Item Value Reference Range Comments HEMOGLOBIN (BEAKER) (test jceb=713) 8.0 GM/DL 13.7-17.5 HEMATOCRIT (BEAKER) (test rmna=284) 24.5 % 40.1-51.0 CBC W/PLT COUNT & AUTO [id number] 16:02:00 Test Item Value Reference Range Comments WHITE BLOOD CELL COUNT (BEAKER) (test zdyz=576) 22.0 K/ L 3.5-10.5 RED BLOOD CELL COUNT (BEAKER) (test xvyw=455) 2.92 M/ L 4.63-6.08 HEMOGLOBIN (BEAKER) (test jfiu=278) 8.3 GM/DL 13.7-17.5 HEMATOCRIT (BEAKER) (test gyne=725) 26.4 % 40.1-51.0 MEAN CORPUSCULAR VOLUME (BEAKER) (test fugu=049) 90.4 fL 79.0-92.2 MEAN CORPUSCULAR HEMOGLOBIN (BEAKER) (test 28.4 pg 25.7-32.2 tvhe=665) MEAN CORPUSCULAR HEMOGLOBIN CONC (BEAKER) (test 31.4 GM/DL 32.3-36.5 iiuj=670) RED CELL DISTRIBUTION WIDTH (BEAKER) (test 22.1 % 11.6-14.4 ymvh=885) PLATELET COUNT (BEAKER) (test dubk=773) 220 K/CU MM 150-450 MEAN PLATELET VOLUME (BEAKER) (test yyxu=225) 9.7 fL 9.4-12.4 NUCLEATED RED BLOOD CELLS (BEAKER) (test 0 /100 WBC 0-0 stoe=404) NEUTROPHILS RELATIVE PERCENT (BEAKER) (test 88 % uxna=377) LYMPHOCYTES RELATIVE PERCENT (BEAKER) (test 3 % hgag=363) MONOCYTES RELATIVE PERCENT (BEAKER) (test 5 % jrzz=684) EOSINOPHILS RELATIVE PERCENT (BEAKER) (test 0 % bjac=192) BASOPHILS RELATIVE PERCENT (BEAKER) (test 0 % kuxb=023) NEUTROPHILS ABSOLUTE COUNT (BEAKER) (test 19.36 K/ L 1.78-5.38 qgln=207) LYMPHOCYTES ABSOLUTE COUNT (BEAKER) (test 0.72 K/ L 1.32-3.57 kwqn=380) MONOCYTES ABSOLUTE COUNT (BEAKER) (test 1.15 K/ L 0.30-0.82 nwsa=805) EOSINOPHILS ABSOLUTE COUNT (BEAKER) (test 0.06 K/ L 0.04-0.54 jsgd=663) BASOPHILS ABSOLUTE COUNT (BEAKER) (test 0.04 K/ L 0.01-0.08 nzkh=467) IMMATURE GRANULOCYTES-RELATIVE PERCENT (BEAKER) 3 % 0-1 (test scgm=5377) BASIC METABOLIC [id number] 12:32:00 Test Item Value Reference Range Comments SODIUM (BEAKER) (test 139 meq/L 136-145 dyzz=583) POTASSIUM (BEAKER) (test 3.8 meq/L 3.5-5.1 woyc=092) CHLORIDE (BEAKER) (test 112 meq/L 98-107 ocgc=810) CO2 (BEAKER) (test 24 meq/L 22-29 yjww=878) BLOOD UREA NITROGEN 4 mg/dL 7-21 (BEAKER) (test ypvi=162) CREATININE (BEAKER) (test 0.64 mg/dL 0.57-1.25 igfa=328) GLUCOSE RANDOM (BEAKER) 131 mg/dL 70-105 (test xyxa=637) CALCIUM (BEAKER) (test 7.1 mg/dL 8.4-10.2 jamm=105) EGFR (BEAKER) (test 131 mL/min/1.73 sq m ESTIMATED GFR IS NOT ylmw=0257) ACCURATE CREATININE CLEARANCE IN PREDICTING GLOMERULAR FILTRATION RATE. ESTIMATED GFR IS NOT APPLICABLE FOR DIALYSIS PATIENTS. POCT-GLUCOSE [id number] 12:08:00 Test Item Value Reference Range Comments POC-GLUCOSE METER (BEAKER) 175 mg/dL 70-110 TESTED AT [facility] [address] [facility] (test kumm=4033) [facility] [address] HEMOGLOBIN AND [id number] 12:07:00 Test Item Value Reference Range Comments HEMOGLOBIN (BEAKER) (test vcwj=467) 8.5 GM/DL 13.7-17.5 HEMATOCRIT (BEAKER) (test dtsa=244) 26.4 % 40.1-51.0 [id number] 11:16:00 Test Item Value Reference Range Comments MAGNESIUM (BEAKER) (test vzxp=314) 2.3 mg/dL 1.6-2.6 BASIC METABOLIC [id number] 10:18:00 Test Item Value Reference Range Comments SODIUM (BEAKER) (test 141 meq/L 136-145 csxh=101) POTASSIUM (BEAKER) (test 3.9 meq/L 3.5-5.1 gnxv=300) CHLORIDE (BEAKER) (test 113 meq/L 98-107 vwnw=666) CO2 (BEAKER) (test 26 meq/L 22-29 oigh=568) BLOOD UREA NITROGEN 4 mg/dL 7-21 (BEAKER) (test qinl=785) CREATININE (BEAKER) (test 0.67 mg/dL 0.57-1.25 qkbz=924) GLUCOSE RANDOM (BEAKER) 93 mg/dL 70-105 (test sumk=800) CALCIUM (BEAKER) (test 7.3 mg/dL 8.4-10.2 qldj=502) EGFR (BEAKER) (test 125 mL/min/1.73 sq m ESTIMATED GFR IS NOT jwch=6172) ACCURATE CREATININE CLEARANCE IN PREDICTING GLOMERULAR FILTRATION RATE. ESTIMATED GFR IS NOT APPLICABLE FOR DIALYSIS PATIENTS. VANCOMYCIN LEVEL, [id number] 10:14:00 Test Item Value Reference Range Comments VANCOMYCIN TROUGH (BEAKER) (test noyj=072) 5.5 ug/mL 10.0-20.0 CBC (HEMOGRAM ONLY)2019-07-09 09:02:00 Test Item Value Reference Range Comments WHITE BLOOD CELL COUNT (BEAKER) (test oxtz=292) 22.4 K/ L 3.5-10.5 RED BLOOD CELL COUNT (BEAKER) (test yqul=044) 2.80 M/ L 4.63-6.08 HEMOGLOBIN (BEAKER) (test ytvh=727) 8.0 GM/DL 13.7-17.5 HEMATOCRIT (BEAKER) (test nfqm=989) 25.1 % 40.1-51.0 MEAN CORPUSCULAR VOLUME (BEAKER) (test pdlx=994) 89.6 fL 79.0-92.2 MEAN CORPUSCULAR HEMOGLOBIN (BEAKER) (test 28.6 pg 25.7-32.2 ozpl=907) MEAN CORPUSCULAR HEMOGLOBIN CONC (BEAKER) (test 31.9 GM/DL 32.3-36.5 lvqe=244) RED CELL DISTRIBUTION WIDTH (BEAKER) (test 21.8 % 11.6-14.4 upwn=735) PLATELET COUNT (BEAKER) (test nzfo=064) 197 K/CU MM 150-450 MEAN PLATELET VOLUME (BEAKER) (test xnwb=318) 9.7 fL 9.4-12.4 NUCLEATED RED BLOOD CELLS (BEAKER) (test 0 /100 WBC 0-0 gpgk=463) HEMOGLOBIN AND [id number] 08:10:00 Test Item Value Reference Range Comments HEMOGLOBIN (BEAKER) (test fxfn=247) 7.9 GM/DL 13.7-17.5 HEMATOCRIT (BEAKER) (test fovu=866) 24.3 % 40.1-51.0 POCT-GLUCOSE [id number] 05:56:00 Test Item Value Reference Range Comments POC-GLUCOSE METER (BEAKER) 113 mg/dL 70-110 TESTED AT [facility] [address] [facility] (test huof=2229) [facility] [address] BASIC METABOLIC [id number] 04:31:00 Test Item Value Reference Range Comments SODIUM (BEAKER) (test 141 meq/L 136-145 cenf=255) POTASSIUM (BEAKER) (test 3.3 meq/L 3.5-5.1 pnih=321) CHLORIDE (BEAKER) (test 112 meq/L 98-107 hjzu=859) CO2 (BEAKER) (test 27 meq/L 22-29 spcg=683) BLOOD UREA NITROGEN 3 mg/dL 7-21 (BEAKER) (test qzym=781) CREATININE (BEAKER) (test 0.66 mg/dL 0.57-1.25 nuni=120) GLUCOSE RANDOM (BEAKER) 107 mg/dL 70-105 (test ncgi=602) CALCIUM (BEAKER) (test 6.9 mg/dL 8.4-10.2 lfia=718) EGFR (BEAKER) (test 127 mL/min/1.73 sq m ESTIMATED GFR IS NOT oxtv=5062) ACCURATE CREATININE CLEARANCE IN PREDICTING GLOMERULAR FILTRATION RATE. ESTIMATED GFR IS NOT APPLICABLE FOR DIALYSIS PATIENTS. [id number] 04:21:00 Test Item Value Reference Range Comments MAGNESIUM (BEAKER) (test pbps=126) 2.2 mg/dL 1.6-2.6 CBC W/PLT COUNT & AUTO [id number] 04:07:00 Test Item Value Reference Range Comments WHITE BLOOD CELL COUNT (BEAKER) (test rgbu=818) 22.9 K/ L 3.5-10.5 RED BLOOD CELL COUNT (BEAKER) (test jqrl=232) 3.04 M/ L 4.63-6.08 HEMOGLOBIN (BEAKER) (test ihly=275) 8.7 GM/DL 13.7-17.5 HEMATOCRIT (BEAKER) (test nprl=565) 26.6 % 40.1-51.0 MEAN CORPUSCULAR VOLUME (BEAKER) (test aocj=400) 87.5 fL 79.0-92.2 MEAN CORPUSCULAR HEMOGLOBIN (BEAKER) (test 28.6 pg 25.7-32.2 qsku=435) MEAN CORPUSCULAR HEMOGLOBIN CONC (BEAKER) (test 32.7 GM/DL 32.3-36.5 tonq=185) RED CELL DISTRIBUTION WIDTH (BEAKER) (test 21.5 % 11.6-14.4 oequ=750) PLATELET COUNT (BEAKER) (test yinn=311) 199 K/CU MM 150-450 MEAN PLATELET VOLUME (BEAKER) (test hjsi=660) 9.4 fL 9.4-12.4 NUCLEATED RED BLOOD CELLS (BEAKER) (test 0 /100 WBC 0-0 nobi=452) NEUTROPHILS RELATIVE PERCENT (BEAKER) (test 86 % weir=267) LYMPHOCYTES RELATIVE PERCENT (BEAKER) (test 5 % ieyw=216) MONOCYTES RELATIVE PERCENT (BEAKER) (test 6 % vnoh=455) EOSINOPHILS RELATIVE PERCENT (BEAKER) (test 0 % xlkp=601) BASOPHILS RELATIVE PERCENT (BEAKER) (test 0 % tdqp=025) NEUTROPHILS ABSOLUTE COUNT (BEAKER) (test 19.52 K/ L 1.78-5.38 dden=470) LYMPHOCYTES ABSOLUTE COUNT (BEAKER) (test 1.05 K/ L 1.32-3.57 fcik=226) MONOCYTES ABSOLUTE COUNT (BEAKER) (test 1.47 K/ L 0.30-0.82 cghy=441) EOSINOPHILS ABSOLUTE COUNT (BEAKER) (test 0.03 K/ L 0.04-0.54 fsbi=846) BASOPHILS ABSOLUTE COUNT (BEAKER) (test 0.04 K/ L 0.01-0.08 bviu=831) IMMATURE GRANULOCYTES-RELATIVE PERCENT (BEAKER) 3 % 0-1 (test jfcb=8548) CALCIUM, [id number] 04:00:00 Test Item Value Reference Range Comments CALCIUM IONIZED (BEAKER) (test qeeh=630) 1.04 mmol/L 1.12-1.27 PH, BLOOD (BEAKER) (test akkl=8562) 7.40 HEMOGLOBIN AND [id number] 00:26:00 Test Item Value Reference Range Comments HEMOGLOBIN (BEAKER) (test ogdv=663) 7.6 GM/DL 13.7-17.5 HEMATOCRIT (BEAKER) (test abdv=603) 23.0 % 40.1-51.0 POCT-GLUCOSE [id number] 00:20:00 Test Item Value Reference Range Comments POC-GLUCOSE METER (BEAKER) 117 mg/dL 70-110 TESTED AT [facility] [address] [facility] (test oies=0060) [place] [address] CT, [id number] 19:35:00FINAL REPORT TECHNIQUE: CT of the abdomen and pelvis WITH intravenous contrast and WITH oral contrast. Dose modulation, iterative reconstruction, and/or weight-based adjustment of the mA/kV was utilized to reduce the radiation dose to as low as reasonably achievable. INDICATION:Abdominal infection suspected. COMPARISON: None. FINDINGS: LOWER THORAX: Small bilateral pleural effusions. HEPATOBILIARY: There is a fluid attenuation structure which is inseparable from segment V and 3 cm on axial image 30. This is most likely a cyst. No surrounding inflammation to suggest an abscess. Prior cholecystectomy. No biliary ductal dilatation.SPLEEN: No splenomegaly.PANCREAS: No focal masses or ductal dilatation. ADRENALS: No adrenal nodules.KIDNEYS/URETERS: No hydronephrosis or masses.Nonobstructing bilateral renal stones (at least three on the left and three on the right) measure upto 0.5 cm. Right renal hypodensities are too small to characterize measure up to 0.7 cm. A right upper pole renal hypodensity measures 1.2 cm and could be artifactual as seen on axial image 24. PELVIC ORGANS/BLADDER: Unremarkable. PERITONEUM/RETROPERITONEUM: No free air or fluid. A right hemiabdominalhernia contains a loop of nonobstructed small bowel. LYMPH NODES: No lymphadenopathy.VESSELS: Unremarkable. GI TRACT: No distention or wall thickening. Prior right hemicolectomy. BONES AND SOFT TISSUES: Skin thickening over both ischial tuberosities with some underlying gas, likely due to decubitus ulcers. The scrotal skin is thickened. Prior bilateral total hip arthroplasty. The right psoas muscle is atrophic. Several old, healed bilateral rib fractures. The bones are diffusely demineralized. Thereare greater than 50% compression deformities of the T12, L1, and L5 vertebral bodies. Less than 50% compression deformity of the L3 vertebral body. Diffuse anasarca. IMPRESSION: 1.Bilateral decubitus ulcers without definite underlying osteomyelitis. The gas in this location could be due to underlyinginfection from gas-forming bacteria. 2.The thickening of the scrotal skin may be due to infection oranasarca. 3.Small bilateral pleural effusions. 4.A small right hemiabdominal hernia contains a smallbowel. There is minimal proximal short segment dilation without significant obstruction. Please evaluate for reducibility. 5.Bilateral nonobstructing renal stones measure up to 0.5 cm. 6.There are several age- indeterminate vertebral compression fractures. These are likely old given the lack of surrounding edema. 7.A right upper pole 1.3 cm renal lesion is indeterminate and could be artifactual. Further evaluation with a CT of the abdomen with and without contrast, renal mass protocol, is recommendedon a nonemergent basis. The findings concerning infection were discussed with Dr. Faye on 07/08/2019 at 7:21 PM. Signed: Oscar Whyet MDReport Verified Date/Time: 07/08/2019 19:35:04 Reading Location: [facility] B1 C013Y CT Body Reading Room POCT- GLUCOSE [id number] 17:58:00 Test Item Value Reference Range Comments POC-GLUCOSE METER (BEAKER) 121 mg/dL 70-110 TESTED AT [facility] [address] [facility] (test kvzq=3915) [facility] [address] HEMOGLOBIN AND [id number] 16:32:00 Test Item Value Reference Range Comments HEMOGLOBIN (BEAKER) (test lcbw=826) 7.5 GM/DL 13.7-17.5 HEMATOCRIT (BEAKER) (test mspi=351) 22.9 % 40.1-51.0 POCT-GLUCOSE [id number] 12:03:00 Test Item Value Reference Range Comments POC-GLUCOSE METER (BEAKER) 93 mg/dL 70-110 TESTED AT [place] [id number] [facility] (test hwow=4282) [facility] [address] BASIC METABOLIC [id number] 10:27:00 Test Item Value Reference Range Comments SODIUM (BEAKER) (test 138 meq/L 136-145 ddfj=257) POTASSIUM (BEAKER) (test 3.5 meq/L 3.5-5.1 ophs=442) CHLORIDE (BEAKER) (test 113 meq/L 98-107 vgds=409) CO2 (BEAKER) (test 23 meq/L 22-29 vipi=771) BLOOD UREA NITROGEN 3 mg/dL 7-21 (BEAKER) (test pjxl=431) CREATININE (BEAKER) (test 0.59 mg/dL 0.57-1.25 zjxw=802) GLUCOSE RANDOM (BEAKER) 115 mg/dL 70-105 (test xhpz=222) CALCIUM (BEAKER) (test 7.0 mg/dL 8.4-10.2 iust=017) EGFR (BEAKER) (test 144 mL/min/1.73 sq m ESTIMATED GFR IS NOT oqsu=0148) ACCURATE CREATININE CLEARANCE IN PREDICTING GLOMERULAR FILTRATION RATE. ESTIMATED GFR IS NOT APPLICABLE FOR DIALYSIS PATIENTS. [id number] 10:16:00 Test Item Value Reference Range Comments MAGNESIUM (BEAKER) (test bwct=336) 1.4 mg/dL 1.6-2.6 CALCIUM, [id number] 09:50:00 Test Item Value Reference Range Comments CALCIUM IONIZED (BEAKER) (test fzho=179) 1.06 mmol/L 1.12-1.27 PH, BLOOD (BEAKER) (test mjhb=8475) 7.47 CBC W/PLT COUNT & AUTO [id number] 09:11:00 Test Item Value Reference Range Comments WHITE BLOOD CELL COUNT (BEAKER) (test wnqc=219) 31.6 K/ L 3.5-10.5 RED BLOOD CELL COUNT (BEAKER) (test fovt=334) 2.90 M/ L 4.63-6.08 HEMOGLOBIN (BEAKER) (test qrln=393) 8.1 GM/DL 13.7-17.5 HEMATOCRIT (BEAKER) (test uekt=789) 25.1 % 40.1-51.0 MEAN CORPUSCULAR VOLUME (BEAKER) (test jdbk=898) 86.6 fL 79.0-92.2 MEAN CORPUSCULAR HEMOGLOBIN (BEAKER) (test 27.9 pg 25.7-32.2 oqob=154) MEAN CORPUSCULAR HEMOGLOBIN CONC (BEAKER) (test 32.3 GM/DL 32.3-36.5 dhzb=254) RED CELL DISTRIBUTION WIDTH (BEAKER) (test 20.0 % 11.6-14.4 sglt=112) PLATELET COUNT (BEAKER) (test qllf=011) 138 K/CU MM 150-450 MEAN PLATELET VOLUME (BEAKER) (test utcd=991) 9.8 fL 9.4-12.4 NUCLEATED RED BLOOD CELLS (BEAKER) (test 0 /100 WBC 0-0 coqv=882) (CELLAVISION MANUAL DIFF)2019-07-08 09:11:00 Test Item Value Reference Range Comments NEUTROPHILS - REL (CELLAVISION)(BEAKER) (test 98 % ptek=2247) MONOCYTES - REL (CELLAVISION)(BEAKER) (test 1 % yrow=9532) METAMYELOCYTES - REL (CELLAVISION)(BEAKER) (test 1 % 0-0 swiw=1161) NEUTROPHILS - ABS (CELLAVISION)(BEAKER) (test 30.97 K/ul 1.78-5.38 qvlb=6600) MONOCYTES - ABS (CELLAVISION)(BEAKER) (test 0.32 K/uL 0.30-0.82 lpcc=6053) METAMYELOCYTES - ABS (CELLAVISION)(BEAKER) (test 0.32 K/uL 0.00-0.00 gfyz=0661) TOTAL COUNTED (BEAKER) (test lcdw=1512) 100 WBC MORPHOLOGY (BEAKER) (test cfqm=530) Normal PLT MORPHOLOGY (BEAKER) (test zijo=892) Normal POLYCHROMATOPHILLIC RBCS(BEAKER) (test hchl=705) 1+ few ANISOCYTOSIS (BEAKER) (test mjtl=339) 1+ few BASOPHILIC STIPPLING (BEAKER) (test fgrb=134) Present ARTIFACT (CELLAVISION)(BEAKER) (test cvoz=4077) Present PLATELET CONCENTRATION (CELLAVISION)(BEAKER) Decreased (test mykj=5775) Received comment: User comments: Slide comments:POCT-GLUCOSE [id number] 06: 28:00 Test Item Value Reference Range Comments POC-GLUCOSE METER (BEAKER) 108 mg/dL 70-110 TESTED AT [address] (test rxqx=6374) [place] [id number] POCT-GLUCOSE [id number] 05:09:00 Test Item Value Reference Range Comments POC-GLUCOSE METER (BEAKER) 82 mg/dL 70-110 TESTED AT [address] (test zyle=2045) [facility] [address] [id number] 04:07:00 Test Item Value Reference Range Comments FERRITIN (BEAKER) (test pyyf=756) 154 ng/mL 5-275 BASIC METABOLIC [id number] 03:53:00 Test Item Value Reference Range Comments SODIUM (BEAKER) (test 141 meq/L 136-145 jbme=395) POTASSIUM (BEAKER) (test 3.4 meq/L 3.5-5.1 xoab=534) CHLORIDE (BEAKER) (test 113 meq/L 98-107 oefy=757) CO2 (BEAKER) (test 24 meq/L 22-29 sofb=629) BLOOD UREA NITROGEN 3 mg/dL 7-21 (BEAKER) (test ptqx=864) CREATININE (BEAKER) (test 0.57 mg/dL 0.57-1.25 fmgv=544) GLUCOSE RANDOM (BEAKER) 96 mg/dL 70-105 (test zeua=875) CALCIUM (BEAKER) (test 7.2 mg/dL 8.4-10.2 wadt=320) EGFR (BEAKER) (test 150 mL/min/1.73 sq m ESTIMATED GFR IS NOT poib=4799) ACCURATE CREATININE CLEARANCE IN PREDICTING GLOMERULAR FILTRATION RATE. ESTIMATED GFR IS NOT APPLICABLE FOR DIALYSIS PATIENTS. HEPATIC FUNCTION [id number] 03:51:00 Test Item Value Reference Range Comments TOTAL PROTEIN (BEAKER) (test klko=465) 3.6 gm/dL 6.0-8.3 ALBUMIN (BEAKER) (test skko=4167) 2.0 g/dL 3.5-5.0 BILIRUBIN TOTAL (BEAKER) (test autk=464) 0.9 mg/dL 0.2-1.2 BILIRUBIN DIRECT (BEAKER) (test unup=644) 0.5 mg/dL 0.1-0.5 ALKALINE PHOSPHATASE (BEAKER) (test hmbe=187) 42 U/L 40-150 AST (SGOT) (BEAKER) (test ptqk=934) 11 U/L 5-34 ALT (SGPT) (BEAKER) (test ntmj=734) 9 U/L 6-55 LACTIC ACID, [id number] 03:48:00 Test Item Value Reference Range Comments LACTATE BLOOD ARTERIAL (2) (BEAKER) (test 0.8 mmol/L 0.5-2.2 sghk=4194) PROTHROMBIN [id number] 03:43:00 Test Item Value Reference Range Comments PROTIME (BEAKER) (test sojq=481) 16.4 seconds 11.9-14.2 INR (BEAKER) (test fhej=934) 1.4 <=5.9 Effective 04/02/2019: PT Reference Range ChangeNew: 11.9-14.2 Previous: 11.7- 14.7RECOMMENDED COUMADIN/WARFARIN INR THERAPY RANGESSTANDARD DOSE: 2.0-3.0 Includes: PROPHYLAXIS for venous thrombosis, systemic embolization; TREATMENT for venous thrombosis and/or pulmonary embolus.HIGH RISK: Target INR is2.5-3.5 for patients wiht mechanical heart valves.HEMOGLOBIN AND [id number] 03 :32:00 Test Item Value Reference Range Comments HEMOGLOBIN (BEAKER) (test vbep=934) 8.1 GM/DL 13.7-17.5 HEMATOCRIT (BEAKER) (test rwzd=159) 24.3 % 40.1-51.0 HEMOGLOBIN AND [id number] 22:53:00 Test Item Value Reference Range Comments HEMOGLOBIN (BEAKER) (test prtp=120) 7.9 GM/DL 13.7-17.5 HEMATOCRIT (BEAKER) (test crxp=951) 23.8 % 40.1-51.0 PT/[id number] 19:45:00 Test Item Value Reference Range Comments PROTIME (BEAKER) (test zhdn=834) 16.5 seconds 11.9-14.2 INR (BEAKER) (test tbfn=943) 1.4 <=5.9 PARTIAL THROMBOPLASTIN TIME (BEAKER) (test 30.9 seconds 22.5-36.0 kaak=656) Effective 04/02/2019: PT Reference Range ChangeNew: 11.9-14.2 Previous: 11.7- 14.7RECOMMENDED COUMADIN/WARFARIN INR THERAPY RANGESSTANDARD DOSE: 2.0-3.0 Includes: PROPHYLAXIS for venous thrombosis, systemic embolization; TREATMENT for venous thrombosis and/or pulmonary embolus.HIGH RISK: Target INR is2.5-3.5 for patients wiht mechanical heart valves.POCT-GLUCOSE [id number] 19:33:00 Test Item Value Reference Range Comments POC-GLUCOSE METER (BEAKER) 101 mg/dL 70-110 TESTED AT [facility] [address] [facility] (test fivy=2628) [facility] [address] CALCIUM, [id number] 18:17:00 Test Item Value Reference Range Comments CALCIUM IONIZED (BEAKER) (test vtfc=766) 1.08 mmol/L 1.12-1.27 PH, BLOOD (BEAKER) (test clnl=5393) 7.37 BLOOD GAS, [id number] 18:15:00 Test Item Value Reference Range Comments PH ARTERIAL (BEAKER) (test nano=954) 7.37 7.35-7.45 PCO2 ARTERIAL (BEAKER) (test wvkr=489) 36 mmHg 35-45 PO2 ARTERIAL (BEAKER) (test zrfe=069) 149 mmHg 80-90 O2 SATURATION ARTERIAL (BEAKER) (test kiep=172) 98.9 % 96.0-97.0 HCO3 ARTERIAL (BEAKER) (test clpv=672) 20 mmol/L 21-29 BASE EXCESS ARTERIAL (BEAKER) (test wvkj=749) -4.5 mmol/L -2.0-3.0 PATIENT TEMPERATURE (BEAKER) (test jewa=9546) 37.0 C FIO2 (BEAKER) (test ocsl=5851) 100.0 % POTASSIUM-STAT [id number] 18:15:00 Test Item Value Reference Range Comments POTASSIUM (BEAKER) (test sslo=860) 3.3 meq/L 3.6-5.5 GLUCOSE-STAT [id number] 18:15:00 Test Item Value Reference Range Comments GLUCOSE RANDOM (BEAKER) (test oqge=483) 138 mg/dL 70-110 HGB/HCT (H&H) - STAT [id number] 18:15:00 Test Item Value Reference Range Comments HEMOGLOBIN (BEAKER) (test obde=465) 8.7 g/dL 13.0-16.8 HEMATOCRIT (BEAKER) (test wsgm=205) 26.0 % 40.0-50.0 SODIUM NA-STAT [id number] 18:13:00 Test Item Value Reference Range Comments SODIUM (BEAKER) (test gptc=405) 137 meq/L 135-148 LACTIC ACID, [id number] 16:40:00 Test Item Value Reference Range Comments LACTATE BLOOD ARTERIAL (2) (BEAKER) (test 1.4 mmol/L 0.5-2.2 hare=4434) HEMOGLOBIN AND [id number] 16:24:00 Test Item Value Reference Range Comments HEMOGLOBIN (BEAKER) (test incf=301) 7.5 GM/DL 13.7-17.5 HEMATOCRIT (BEAKER) (test cvew=093) 22.6 % 40.1-51.0 HGB/HCT (H&H) - STAT [id number] 15:47:00 Test Item Value Reference Range Comments HEMOGLOBIN (BEAKER) (test iobl=844) 9.1 g/dL 13.0-16.8 HEMATOCRIT (BEAKER) (test qvti=891) 27.0 % 40.0-50.0 BLOOD GAS, [id number] 12:36:00 Test Item Value Reference Range Comments PH ARTERIAL (BEAKER) (test tqyf=850) 7.40 7.35-7.45 PCO2 ARTERIAL (BEAKER) (test yoea=606) 45 mmHg 35-45 PO2 ARTERIAL (BEAKER) (test qoqp=947) 34 mmHg 80-90 O2 SATURATION ARTERIAL (BEAKER) (test nnyn=365) 67.7 % 96.0-97.0 HCO3 ARTERIAL (BEAKER) (test yqto=576) 27 mmol/L 21-29 BASE EXCESS ARTERIAL (BEAKER) (test fifw=797) 1.6 mmol/L -2.0-3.0 PATIENT TEMPERATURE (BEAKER) (test qakw=6451) 36.0 C FIO2 (BEAKER) (test dbrw=1958) 21.0 % [id number] 12:32:00 Test Item Value Reference Range Comments MAGNESIUM (BEAKER) (test 1.7 mg/dL 1.6-2.6 Specimen slightly hemolyzed yeen=156) POTASSIUM-STAT [id number] 12:31:00 Test Item Value Reference Range Comments POTASSIUM (BEAKER) (test cdjs=146) 3.2 meq/L 3.6-5.5 HGB/HCT (H&H) - STAT [id number] 12:31:00 Test Item Value Reference Range Comments HEMOGLOBIN (BEAKER) (test qiot=032) 9.7 g/dL 13.0-16.8 HEMATOCRIT (BEAKER) (test gtnx=682) 29.0 % 40.0-50.0 GLUCOSE-STAT [id number] 12:29:00 Test Item Value Reference Range Comments GLUCOSE RANDOM (BEAKER) (test algu=176) 100 mg/dL 70-110 SODIUM NA-STAT [id number] 12:29:00 Test Item Value Reference Range Comments SODIUM (BEAKER) (test kfnw=816) 136 meq/L 135-148 POCT-GLUCOSE [id number] 11:50:00 Test Item Value Reference Range Comments POC-GLUCOSE METER (BEAKER) 88 mg/dL 70-110 TESTED AT [facility] [address] [facility] (test ztdj=8182) [facility] [address] BASIC METABOLIC [id number] 09:48:00 Test Item Value Reference Range Comments SODIUM (BEAKER) (test 139 meq/L 136-145 gyri=404) POTASSIUM (BEAKER) (test 3.6 meq/L 3.5-5.1 wncf=059) CHLORIDE (BEAKER) (test 110 meq/L 98-107 ascj=111) CO2 (BEAKER) (test 26 meq/L 22-29 onzp=243) BLOOD UREA NITROGEN 4 mg/dL 7-21 (BEAKER) (test vijd=089) CREATININE (BEAKER) (test 0.55 mg/dL 0.57-1.25 rbfy=518) GLUCOSE RANDOM (BEAKER) 103 mg/dL 70-105 (test pvha=242) CALCIUM (BEAKER) (test 7.1 mg/dL 8.4-10.2 srtm=384) EGFR (BEAKER) (test 156 mL/min/1.73 sq m ESTIMATED GFR IS NOT wwsx=9562) ACCURATE CREATININE CLEARANCE IN PREDICTING GLOMERULAR FILTRATION RATE. ESTIMATED GFR IS NOT APPLICABLE FOR DIALYSIS PATIENTS. CBC W/PLT COUNT & AUTO [id number] 09:44:00 Test Item Value Reference Range Comments WHITE BLOOD CELL COUNT (BEAKER) (test rnph=269) 28.0 K/ L 3.5-10.5 RED BLOOD CELL COUNT (BEAKER) (test moyy=509) 3.18 M/ L 4.63-6.08 HEMOGLOBIN (BEAKER) (test ywhu=356) 10.0 GM/DL 13.7-17.5 HEMATOCRIT (BEAKER) (test gvpc=558) 30.1 % 40.1-51.0 MEAN CORPUSCULAR VOLUME (BEAKER) (test rard=848) 94.7 fL 79.0-92.2 MEAN CORPUSCULAR HEMOGLOBIN (BEAKER) (test 31.4 pg 25.7-32.2 szmz=489) MEAN CORPUSCULAR HEMOGLOBIN CONC (BEAKER) (test 33.2 GM/DL 32.3-36.5 xcgv=968) RED CELL DISTRIBUTION WIDTH (BEAKER) (test 15.4 % 11.6-14.4 azwe=316) PLATELET COUNT (BEAKER) (test nwju=477) 270 K/CU MM 150-450 MEAN PLATELET VOLUME (BEAKER) (test paew=543) 9.5 fL 9.4-12.4 NUCLEATED RED BLOOD CELLS (BEAKER) (test 0 /100 WBC 0-0 ofhx=301) (CELLAVISION MANUAL DIFF)2019-07-07 09:44:00 Test Item Value Reference Range Comments NEUTROPHILS - REL (CELLAVISION)(BEAKER) (test 84 % ifxb=8787) LYMPHOCYTES - REL (CELLAVISION)(BEAKER) (test 4 % ebcu=6292) MONOCYTES - REL (CELLAVISION)(BEAKER) (test 9 % kgst=8129) BANDS - REL (CELLAVISION)(BEAKER) (test 3 % 0-10 kvko=5763) NEUTROPHILS - ABS (CELLAVISION)(BEAKER) (test 23.52 K/ul 1.78-5.38 sccn=0560) LYMPHOCYTES - ABS (CELLAVISION)(BEAKER) (test 1.12 K/ul 1.32-3.57 nwww=2667) MONOCYTES - ABS (CELLAVISION)(BEAKER) (test 2.52 K/uL 0.30-0.82 hgin=1344) BANDS - ABS (CELLAVISION)(BEAKER) (test 0.84 K/uL 0.00-0.80 ovix=8319) TOTAL COUNTED (BEAKER) (test chpf=0977) 100 WBC MORPHOLOGY (BEAKER) (test ftnc=364) Normal PLT MORPHOLOGY (BEAKER) (test fzcm=323) Normal POIKILOCYTES (BEAKER) (test rxof=187) 1+ few ARTIFACT (CELLAVISION)(BEAKER) (test bbrl=9636) Present PLATELET CONCENTRATION (CELLAVISION)(BEAKER) Adequate (test uaof=0963) Received comment: Check after transfusion completedUser comments: Slide comments :HEPATIC FUNCTION [id number] 07:43:00 Test Item Value Reference Range Comments TOTAL PROTEIN (BEAKER) (test quyo=118) 4.6 gm/dL 6.0-8.3 ALBUMIN (BEAKER) (test sska=1780) 2.2 g/dL 3.5-5.0 BILIRUBIN TOTAL (BEAKER) (test dpjz=018) 0.7 mg/dL 0.2-1.2 BILIRUBIN DIRECT (BEAKER) (test dqim=311) 0.4 mg/dL 0.1-0.5 ALKALINE PHOSPHATASE (BEAKER) (test yqjr=881) 53 U/L 40-150 AST (SGOT) (BEAKER) (test vsas=712) 11 U/L 5-34 ALT (SGPT) (BEAKER) (test mhxg=171) 11 U/L 6-55 PROTHROMBIN [id number] 07:33:00 Test Item Value Reference Range Comments PROTIME (BEAKER) (test nekh=724) 14.3 seconds 11.9-14.2 INR (BEAKER) (test nmlv=978) 1.2 <=5.9 Effective 04/02/2019: PT Reference Range ChangeNew: 11.9-14.2 Previous: 11.7- 14.7RECOMMENDED COUMADIN/WARFARIN INR THERAPY RANGESSTANDARD DOSE: 2.0-3.0 Includes: PROPHYLAXIS for venous thrombosis, systemic embolization; TREATMENT for venous thrombosis and/or pulmonary embolus.HIGH RISK: Target INR is2.5-3.5 for patients wiht mechanical heart valves.VITAMIN B12 AND [id number] 07:27 :00 Test Item Value Reference Range Comments VITAMIN B12 (BEAKER) (test iyvp=837) 290 pg/mL 213-816 FOLATE (BEAKER) (test hmxv=572) 11.1 ng/mL >=7.0 POCT-GLUCOSE [id number] 06:09:00 Test Item Value Reference Range Comments POC-GLUCOSE METER (BEAKER) 89 mg/dL 70-110 TESTED AT [facility] [address] [facility] (test fpsu=9758) [place] [address] RAD, CHEST, 1 VIEW, NON [id number] 04:21:00Reason for exam:-> leucocytosisShould this be performed at the bedside?->YesFINAL REPORT RAD, CHEST, 1 VIEW, NON DEPT INDICATION: leucocytosis COMPARISON: September 24, 2010 FINDINGS: Portable frontal view of the chest. IMPRESSION: Left lung base opacities blunted costophrenic angle, likely scarring or atelectasis as there are similar prior exam. Nopneumothorax or significant pleural effusion. No focal lung consolidation. The cardiomediastinal silhouette is within normal limits. Right total shoulder arthroplasty. Degenerative changes of the spineand left shoulder. Signed: Trinity Chavez MDReport Verified Date/Time: 07/07/2019 04:21:36 IRON, TIBC, % SAT. ( WITHOUT FERRITIN)2019-07-07 01:55:00 Test Item Value Reference Range Comments IRON (BEAKER) (test opzt=715) 72.0 ug/dL 40.0-160.0 TOTAL IRON BINDING CAPACITY (BEAKER) (test 94 ug/dL 250-450 atbz=726) IRON % SATURATION (2) (BEAKER) (test djcg=3793) 77 % 20-55 URINALYSIS WITH MICROSCOPIC IF [id number] 01:48:00 Test Item Value Reference Range Comments COLOR (BEAKER) (test bskx=547) Light Yellow CLARITY (BEAKER) (test uxzu=097) Clear SPECIFIC GRAVITY UA (BEAKER) (test tink=871) 1.005 1.001-1.035 PH UA (BEAKER) (test dtxk=986) 6.5 5.0-8.0 PROTEIN UA (BEAKER) (test xdwo=463) Negative Negative GLUCOSE UA (BEAKER) (test wnde=426) Negative Negative KETONES UA (BEAKER) (test obyb=139) Negative Negative BILIRUBIN UA (BEAKER) (test oler=897) Negative Negative BLOOD UA (BEAKER) (test qctj=256) Negative Negative NITRITE UA (BEAKER) (test glyd=575) Negative Negative LEUKOCYTE ESTERASE UA (BEAKER) (test nqrn=902) Negative Negative UROBILINOGEN UA (BEAKER) (test tpob=776) 0.2 mg/dL 0.2-1.0 SOURCE(BEAKER) (test xels=5568) [id number] 01:24:00 Test Item Value Reference Range Comments POC-HEMOGLOBIN (BEAKER) 5.4 g/dL 13.0-16.8 TESTED AT [address] (test pgbj=7006) [place] [address]TESTED AT [place] [address] POCT-BLOOD GASES, [id number] 01:23:00 Test Item Value Reference Range Comments TEMP, CELSIUS-POC (BEAKER) 36.1 (test vaai=2650) FIO2-POC (BEAKER) (test 21 TESTED AT [address] qkow=7797) [place] [address] PH, VENOUS-POC (BEAKER) 7.392 7.320-7.420 (test kowa=0822) PCO2, VENOUS-POC (BEAKER) 42.4 mm Hg 41.0-51.0 (test cszx=2624) PO2, VENOUS-POC (BEAKER) 54.0 mm Hg 25.0-40.0 (test eixi=5150) SO2, VENOUS-POC (BEAKER) 89.0 % 40.0-70.0 (test heit=1555) HCO3, VENOUS-POC (BEAKER) 26.0 meq/L 21.0-29.0 (test wlkf=2656) BASE EXCESS, VENOUS-POC 1.0 meq/L -2.0-3.0 (BEAKER) (test fblb=2355) [id number] 01:23:00 Test Item Value Reference Range Comments POC-SODIUM (BEAKER) (test 141 meq/L 135-148 TESTED AT [address] gbxi=3666) [place] [address] [id number] 01:23:00 Test Item Value Reference Range Comments POC-POTASSIUM (BEAKER) (test 3.1 meq/L 3.6-5.5 TESTED AT [address] olnf=0941) [place] [address] [id number] 01:23:00 Test Item Value Reference Range Comments POC-GLUCOSE (BEAKER) (test 100 mg/dL 70-110 TESTED AT [address] sepw=5148) [place] [address] POCT-CALCIUM [id number] 01:23:00 Test Item Value Reference Range Comments POC-CALCIUM IONIZED (BEAKER) 1.13 mmol/L 1.12-1.27 TESTED AT [address] (test ijwv=0902) [place] [id number] 01:23:00 Test Item Value Reference Range Comments POC-HEMATOCRIT (BEAKER) (test 16 % 40-50 TESTED AT [address] zaoa=3025) [place] [address] C-REACTIVE [id number] 01:07:00 Test Item Value Reference Range Comments C-REACTIVE PROTEIN (BEAKER) (test odgn=526) 7.02 mg/dL 0.00-0.50 LACTIC ACID, [id number] 01:05:00 Test Item Value Reference Range Comments LACTATE BLOOD VENOUS (2) (BEAKER) (test 1.4 mmol/L 0.5-2.2 bxyf=7199) POCT-GLUCOSE [id number] 01:02:00 Test Item Value Reference Range Comments POC-GLUCOSE METER (BEAKER) 125 mg/dL 70-110 TESTED AT [address] (test djqd=7571) [place] [id number] POCT-GLUCOSE [id number] 23:36:00 Test Item Value Reference Range Comments POC-GLUCOSE METER (BEAKER) 189 mg/dL 70-110 TESTED AT [address] (test uxni=4373) [place] [address] (CELLAVISION MANUAL DIFF)2019-07-06 21:36:00 Test Item Value Reference Range Comments NEUTROPHILS - REL (CELLAVISION)(BEAKER) (test 93 % pjyx=7039) LYMPHOCYTES - REL (CELLAVISION)(BEAKER) (test 4 % ccam=5463) MONOCYTES - REL (CELLAVISION)(BEAKER) (test 2 % iioa=9421) BANDS - REL (CELLAVISION)(BEAKER) (test 1 % 0-10 geri=3581) NEUTROPHILS - ABS (CELLAVISION)(BEAKER) (test 29.85 K/ul 1.78-5.38 rfhs=4026) LYMPHOCYTES - ABS (CELLAVISION)(BEAKER) (test 1.28 K/ul 1.32-3.57 jiyq=0614) MONOCYTES - ABS (CELLAVISION)(BEAKER) (test 0.64 K/uL 0.30-0.82 iosb=3128) BANDS - ABS (CELLAVISION)(BEAKER) (test 0.32 K/uL 0.00-0.80 nfcf=9453) TOTAL COUNTED (BEAKER) (test gnux=3384) 100 RBC MORPHOLOGY (BEAKER) (test fooi=229) Normal WBC MORPHOLOGY (BEAKER) (test jcch=798) Normal PLT MORPHOLOGY (BEAKER) (test chlh=639) Normal ARTIFACT (CELLAVISION)(BEAKER) (test ylnu=8233) Present PLATELET CONCENTRATION (CELLAVISION)(BEAKER) Adequate (test udey=0687) Received comment: User comments: Slide comments:BASIC METABOLIC [id number] 21:31:00 Test Item Value Reference Range Comments SODIUM (BEAKER) (test 137 meq/L 136-145 qoeh=376) POTASSIUM (BEAKER) (test 3.7 meq/L 3.5-5.1 dthi=919) CHLORIDE (BEAKER) (test 108 meq/L 98-107 pqjh=189) CO2 (BEAKER) (test 25 meq/L 22-29 zwbv=672) BLOOD UREA NITROGEN 6 mg/dL 7-21 (BEAKER) (test hxck=306) CREATININE (BEAKER) (test 0.52 mg/dL 0.57-1.25 iatq=412) GLUCOSE RANDOM (BEAKER) 90 mg/dL 70-105 (test rhcm=371) CALCIUM (BEAKER) (test 7.3 mg/dL 8.4-10.2 ilfq=785) EGFR (BEAKER) (test 167 mL/min/1.73 sq m ESTIMATED GFR IS NOT jsvu=1216) ACCURATE CREATININE CLEARANCE IN PREDICTING GLOMERULAR FILTRATION RATE. ESTIMATED GFR IS NOT APPLICABLE FOR DIALYSIS PATIENTS. CBC W/PLT COUNT & AUTO [id number] 21:27:00 Test Item Value Reference Range Comments WHITE BLOOD CELL COUNT (BEAKER) (test wjvo=525) 32.1 K/ L 3.5-10.5 RED BLOOD CELL COUNT (BEAKER) (test enez=797) 2.69 M/ L 4.63-6.08 HEMOGLOBIN (BEAKER) (test ckhf=526) 8.4 GM/DL 13.7-17.5 HEMATOCRIT (BEAKER) (test iacm=713) 25.6 % 40.1-51.0 MEAN CORPUSCULAR VOLUME (BEAKER) (test fldd=881) 95.2 fL 79.0-92.2 MEAN CORPUSCULAR HEMOGLOBIN (BEAKER) (test 31.2 pg 25.7-32.2 jujz=927) MEAN CORPUSCULAR HEMOGLOBIN CONC (BEAKER) (test 32.8 GM/DL 32.3-36.5 scjq=140) RED CELL DISTRIBUTION WIDTH (BEAKER) (test 15.8 % 11.6-14.4 plsx=791) PLATELET COUNT (BEAKER) (test cvdg=719) 276 K/CU MM 150-450 MEAN PLATELET VOLUME (BEAKER) (test tyux=148) 9.7 fL 9.4-12.4 NUCLEATED RED BLOOD CELLS (BEAKER) (test 0 /100 WBC 0-0 mvxs=448) HEPATIC FUNCTION [id number] 21:26:00 Test Item Value Reference Range Comments TOTAL PROTEIN (BEAKER) (test sfbh=104) 4.6 gm/dL 6.0-8.3 ALBUMIN (BEAKER) (test ujlr=5765) 2.2 g/dL 3.5-5.0 BILIRUBIN TOTAL (BEAKER) (test gjnx=058) 0.7 mg/dL 0.2-1.2 BILIRUBIN DIRECT (BEAKER) (test xaxo=293) 0.4 mg/dL 0.1-0.5 ALKALINE PHOSPHATASE (BEAKER) (test ajan=363) 58 U/L 40-150 AST (SGOT) (BEAKER) (test ybos=091) 10 U/L 5-34 ALT (SGPT) (BEAKER) (test sltz=253) 11 U/L 6-55 PROTHROMBIN [id number] 21:18:00 Test Item Value Reference Range Comments PROTIME (BEAKER) (test iqzo=213) 14.2 seconds 11.9-14.2 INR (BEAKER) (test bxso=000) 1.2 <=5.9 Effective 04/02/2019: PT Reference Range ChangeNew: 11.9-14.2 Previous: 11.7- 14.7RECOMMENDED COUMADIN/WARFARIN INR THERAPY RANGESSTANDARD DOSE: 2.0-3.0 Includes: PROPHYLAXIS for venous thrombosis, systemic embolization; TREATMENT for venous thrombosis and/or pulmonary embolus.HIGH RISK: Target INR is2.5-3.5 for patients wiht mechanical heart valves.
== END 2019-09-13 12:08 | disposition home or self-care (01) ==
LOC: ER 10:06
DX: J40 Bronchitis, not specified as acute or chronic (principal); I10 Essential (primary) hypertension; Z88.5 Allergy status to narcotic agent; Z88.6 Allergy status to analgesic agent; Z88.8 Allergy status to other drugs, medicaments and biological substances; Z96.611 Presence of right artificial shoulder joint; Z96.643 Presence of artificial hip joint, bilateral
CPT/HCPCS: 71046; 87070; 87081; 87804; 99283

== ENCOUNTER 2019-12-18 09:47 | Emergency (ER) | payer OTHER ==
--- OUTSIDE RECORDS SUMMARY | 2019-12-18 09:53 | XMS REPORT ---
:1965 [facility] Address [address] [place] [address] Dr. Al. [address] [place] [id number] Care Team Providers Name Role Phone NALDO CLEMENT Unavailable Unavailable Problems This patient has no known problems. Allergies, Adverse Reactions, Alerts This patient has no known allergies or adverse reactions. Medications This patient has no known medications. Results Test Description Test Time Test Comments Text Results Atomic Results Result Comments BLOOD CULTURE 2019-07-18 08:01:00 Test Item Value Reference Range Comments CULTURE (BEAKER) (test plek=0880) No growth in 5 days BLOOD [id number] 08:01:00 Test Item Value Reference Range Comments CULTURE (BEAKER) (test wmwv=3419) No growth in 5 days BASIC METABOLIC [id number] 06:08:00 Test Item Value Reference Range Comments SODIUM (BEAKER) (test 140 meq/L 136-145 fgtj=141) POTASSIUM (BEAKER) (test 3.8 meq/L 3.5-5.1 dgjv=633) CHLORIDE (BEAKER) (test 106 meq/L 98-107 uimd=005) CO2 (BEAKER) (test 32 meq/L 22-29 zylp=375) BLOOD UREA NITROGEN 13 mg/dL 7-21 (BEAKER) (test psfx=147) CREATININE (BEAKER) (test 0.57 mg/dL 0.57-1.25 xzpt=948) GLUCOSE RANDOM (BEAKER) 91 mg/dL 70-105 (test saxw=096) CALCIUM (BEAKER) (test 7.6 mg/dL 8.4-10.2 avrq=299) EGFR (BEAKER) (test 150 mL/min/1.73 sq m ESTIMATED GFR IS NOT fcpg=4009) ACCURATE CREATININE CLEARANCE IN PREDICTING GLOMERULAR FILTRATION RATE. ESTIMATED GFR IS NOT APPLICABLE FOR DIALYSIS PATIENTS. CBC W/PLT COUNT & AUTO [id number] 07:49:00 Test Item Value Reference Range Comments WHITE BLOOD CELL COUNT (BEAKER) (test ybhn=258) 32.1 K/ L 3.5-10.5 RED BLOOD CELL COUNT (BEAKER) (test jdfd=310) 3.78 M/ L 4.63-6.08 HEMOGLOBIN (BEAKER) (test nwsm=135) 10.5 GM/DL 13.7-17.5 HEMATOCRIT (BEAKER) (test gxro=483) 35.3 % 40.1-51.0 MEAN CORPUSCULAR VOLUME (BEAKER) (test hmec=362) 93.4 fL 79.0-92.2 MEAN CORPUSCULAR HEMOGLOBIN (BEAKER) (test 27.8 pg 25.7-32.2 tjrz=639) MEAN CORPUSCULAR HEMOGLOBIN CONC (BEAKER) (test 29.7 GM/DL 32.3-36.5 anpb=310) RED CELL DISTRIBUTION WIDTH (BEAKER) (test 23.3 % 11.6-14.4 ajwk=012) PLATELET COUNT (BEAKER) (test xmfx=900) 495 K/CU MM 150-450 MEAN PLATELET VOLUME (BEAKER) (test yxsc=401) 9.8 fL 9.4-12.4 NUCLEATED RED BLOOD CELLS (BEAKER) (test 1 /100 WBC 0-0 qjwa=097) (CELLAVISION MANUAL DIFF)2019-07-15 07:49:00 Test Item Value Reference Range Comments NEUTROPHILS - REL (CELLAVISION)(BEAKER) (test 88 % pqyf=5842) LYMPHOCYTES - REL (CELLAVISION)(BEAKER) (test 5 % kvzm=7196) MONOCYTES - REL (CELLAVISION)(BEAKER) (test 4 % gsej=6859) EOSINOPHILS - REL (CELLAVISION)(BEAKER) (test 2 % zkac=2046) METAMYELOCYTES - REL (CELLAVISION)(BEAKER) (test 1 % 0-0 gmmc=3934) NEUTROPHILS - ABS (CELLAVISION)(BEAKER) (test 28.25 K/ul 1.78-5.38 znuu=2907) LYMPHOCYTES - ABS (CELLAVISION)(BEAKER) (test 1.61 K/ul 1.32-3.57 ixha=1181) MONOCYTES - ABS (CELLAVISION)(BEAKER) (test 1.28 K/uL 0.30-0.82 jbkk=1061) EOSINOPHILS - ABS (CELLAVISION)(BEAKER) (test 0.64 K/uL 0.04-0.54 xeve=8119) METAMYELOCYTES - ABS (CELLAVISION)(BEAKER) (test 0.32 K/uL 0.00-0.00 gjbs=1417) TOTAL COUNTED (BEAKER) (test cdfj=8296) 100 MANUAL NRBC PER 100 CELLS (BEAKER) (test 1 /100 WBC 0-0 cfrm=7957) WBC MORPHOLOGY (BEAKER) (test fops=955) Normal PLT MORPHOLOGY (BEAKER) (test hrrl=701) Normal POLYCHROMATOPHILLIC RBCS(BEAKER) (test qkob=327) 2+ moderate HYPOCHROMIA (BEAKER) (test kpox=756) 1+ few ANISOCYTOSIS (BEAKER) (test htsq=300) 2+ moderate MACROCYTES (BEAKER) (test lwth=200) 1+ few POIKILOCYTES (BEAKER) (test mokb=738) 1+ few OVALOCYTES (BEAKER) (test zlyv=440) 1+ few TEAR DROP CELLS (BEAKER) (test mgsu=948) 1+ few BASOPHILIC STIPPLING (BEAKER) (test jidj=503) Present ARTIFACT (CELLAVISION)(BEAKER) (test dpfj=7075) Present HELMET CELLS (CELLAVISION)(BEAKER) (test 1+ few cqun=6809) PLATELET CONCENTRATION (CELLAVISION)(BEAKER) Increased (test lwhs=5563) Received comment: User comments: Slide comments:BASIC METABOLIC [id number] 05:04:00 Test Item Value Reference Range Comments SODIUM (BEAKER) (test 142 meq/L 136-145 rnpv=415) POTASSIUM (BEAKER) (test 3.2 meq/L 3.5-5.1 ouyt=795) CHLORIDE (BEAKER) (test 105 meq/L 98-107 lutl=546) CO2 (BEAKER) (test 32 meq/L 22-29 pqaz=043) BLOOD UREA NITROGEN 11 mg/dL 7-21 (BEAKER) (test utov=990) CREATININE (BEAKER) (test 0.60 mg/dL 0.57-1.25 rfet=631) GLUCOSE RANDOM (BEAKER) 120 mg/dL 70-105 (test umms=463) CALCIUM (BEAKER) (test 7.9 mg/dL 8.4-10.2 mlnu=299) EGFR (BEAKER) (test 141 mL/min/1.73 sq m ESTIMATED GFR IS NOT wtrh=5114) ACCURATE CREATININE CLEARANCE IN PREDICTING GLOMERULAR FILTRATION RATE. ESTIMATED GFR IS NOT APPLICABLE FOR DIALYSIS PATIENTS. CBC W/PLT COUNT & AUTO [id number] 09:25:00 Test Item Value Reference Range Comments WHITE BLOOD CELL COUNT (BEAKER) (test okqi=251) 27.2 K/ L 3.5-10.5 RED BLOOD CELL COUNT (BEAKER) (test iojg=436) 3.06 M/ L 4.63-6.08 HEMOGLOBIN (BEAKER) (test dabd=891) 9.0 GM/DL 13.7-17.5 HEMATOCRIT (BEAKER) (test gnpz=704) 28.8 % 40.1-51.0 MEAN CORPUSCULAR VOLUME (BEAKER) (test wczp=138) 94.1 fL 79.0-92.2 MEAN CORPUSCULAR HEMOGLOBIN (BEAKER) (test 29.4 pg 25.7-32.2 jjxp=704) MEAN CORPUSCULAR HEMOGLOBIN CONC (BEAKER) (test 31.3 GM/DL 32.3-36.5 bktq=358) RED CELL DISTRIBUTION WIDTH (BEAKER) (test 23.3 % 11.6-14.4 vuoh=467) PLATELET COUNT (BEAKER) (test tonr=457) 422 K/CU MM 150-450 MEAN PLATELET VOLUME (BEAKER) (test jdsp=692) 9.6 fL 9.4-12.4 NUCLEATED RED BLOOD CELLS (BEAKER) (test 1 /100 WBC 0-0 xyrr=904) (CELLAVISION MANUAL DIFF)2019-07-14 09:25:00 Test Item Value Reference Range Comments NEUTROPHILS - REL (CELLAVISION)(BEAKER) (test 83 % vvaf=6308) LYMPHOCYTES - REL (CELLAVISION)(BEAKER) (test 5 % zurw=3850) MONOCYTES - REL (CELLAVISION)(BEAKER) (test 9 % wxya=4378) BANDS - REL (CELLAVISION)(BEAKER) (test 2 % 0-10 raoj=2502) ATYPICAL LYMPHOCYTES - REL (CELLAVISION)(BEAKER) 1 % 0-0 (test dfyy=7417) NEUTROPHILS - ABS (CELLAVISION)(BEAKER) (test 22.58 K/ul 1.78-5.38 fefx=7312) LYMPHOCYTES - ABS (CELLAVISION)(BEAKER) (test 1.36 K/ul 1.32-3.57 ouhe=0854) MONOCYTES - ABS (CELLAVISION)(BEAKER) (test 2.45 K/uL 0.30-0.82 ubiv=6766) BANDS - ABS (CELLAVISION)(BEAKER) (test 0.54 K/uL 0.00-0.80 jdke=9451) ATYPICAL LYMPHOCYTES - ABS (CELLAVISION)(BEAKER) 0.27 K/uL 0.00-0.00 (test rmje=2183) TOTAL COUNTED (BEAKER) (test ydyl=9296) 100 WBC MORPHOLOGY (BEAKER) (test tewg=939) Normal GIANT PLATELETS (BEAKER) (test gawn=158) Present LARGE PLT(BEAKER) (test kfdz=8682) Present POLYCHROMATOPHILLIC RBCS(BEAKER) (test llso=439) 2+ moderate ANISOCYTOSIS (BEAKER) (test zcfd=773) 1+ few MACROCYTES (BEAKER) (test ltyu=161) 1+ few POIKILOCYTES (BEAKER) (test ozjp=551) 1+ few ELLIPTOCYTES (BEAKER) (test kadk=691) 1+ few OVALOCYTES (BEAKER) (test qwuv=284) 1+ few TEAR DROP CELLS (BEAKER) (test ygby=510) 1+ few STOMATOCYTES (BEAKER) (test drwz=428) 1+ few ABRAN CELLS (BEAKER) (test odrr=118) 1+ few BASOPHILIC STIPPLING (BEAKER) (test pkel=726) Present ARTIFACT (CELLAVISION)(BEAKER) (test olwn=7134) Present PLATELET CONCENTRATION (CELLAVISION)(BEAKER) Adequate (test euua=8240) Received comment: User comments: Slide comments: WBC: SEGMENTED WITH TOXIC GRANULATIONS PRESENTBASIC METABOLIC [id number] 04:47:00 Test Item Value Reference Range Comments SODIUM (BEAKER) (test 142 meq/L 136-145 euyt=311) POTASSIUM (BEAKER) (test 3.5 meq/L 3.5-5.1 sbdt=337) CHLORIDE (BEAKER) (test 107 meq/L 98-107 kjna=602) CO2 (BEAKER) (test 31 meq/L 22-29 ptdi=632) BLOOD UREA NITROGEN 14 mg/dL 7-21 (BEAKER) (test zpqj=149) CREATININE (BEAKER) (test 0.62 mg/dL 0.57-1.25 ffwy=735) GLUCOSE RANDOM (BEAKER) 129 mg/dL 70-105 (test gdqr=992) CALCIUM (BEAKER) (test 7.7 mg/dL 8.4-10.2 yuos=536) EGFR (BEAKER) (test 136 mL/min/1.73 sq m ESTIMATED GFR IS NOT ujvz=9386) ACCURATE CREATININE CLEARANCE IN PREDICTING GLOMERULAR FILTRATION RATE. ESTIMATED GFR IS NOT APPLICABLE FOR DIALYSIS PATIENTS. URINALYSIS W/ REFLEX URINE [id number] 12:15:00 Test Item Value Reference Range Comments COLOR (BEAKER) (test ilny=083) Yellow CLARITY (BEAKER) (test kaxw=502) Hazy SPECIFIC GRAVITY UA (BEAKER) (test jxir=480) 1.014 1.001-1.035 PH UA (BEAKER) (test bagj=545) 7.5 5.0-8.0 PROTEIN UA (BEAKER) (test xozl=172) Negative Negative GLUCOSE UA (BEAKER) (test jjlz=175) Negative Negative KETONES UA (BEAKER) (test vqrh=358) Negative Negative BILIRUBIN UA (BEAKER) (test xqek=168) Negative Negative BLOOD UA (BEAKER) (test ogtx=002) Negative Negative NITRITE UA (BEAKER) (test lkva=737) Negative Negative LEUKOCYTE ESTERASE UA (BEAKER) (test zimk=843) Negative Negative UROBILINOGEN UA (BEAKER) (test mlga=163) 0.2 mg/dL 0.2-1.0 RBC UA (BEAKER) (test ieng=506) 1 /HPF WBC UA (BEAKER) (test pthh=177) 1 /HPF MUCUS (BEAKER) (test lapo=9762) Rare CALCIUM OXALATE CRYSTALS (BEAKER) (test lgre=196) Rare AMORPHOUS CRYSTALS (BEAKER) (test uddx=4221) Rare SOURCE(BEAKER) (test atpe=5736) CBC W/PLT COUNT & AUTO [id number] 08:39:00 Test Item Value Reference Range Comments WHITE BLOOD CELL COUNT (BEAKER) (test nqus=406) 31.9 K/ L 3.5-10.5 RED BLOOD CELL COUNT (BEAKER) (test tkme=468) 3.12 M/ L 4.63-6.08 HEMOGLOBIN (BEAKER) (test ztod=315) 9.2 GM/DL 13.7-17.5 HEMATOCRIT (BEAKER) (test huav=922) 29.7 % 40.1-51.0 MEAN CORPUSCULAR VOLUME (BEAKER) (test geip=522) 95.2 fL 79.0-92.2 MEAN CORPUSCULAR HEMOGLOBIN (BEAKER) (test 29.5 pg 25.7-32.2 eotm=609) MEAN CORPUSCULAR HEMOGLOBIN CONC (BEAKER) (test 31.0 GM/DL 32.3-36.5 hcmp=498) RED CELL DISTRIBUTION WIDTH (BEAKER) (test 23.9 % 11.6-14.4 xnjj=482) PLATELET COUNT (BEAKER) (test hywv=369) 386 K/CU MM 150-450 MEAN PLATELET VOLUME (BEAKER) (test avjm=034) 9.8 fL 9.4-12.4 NUCLEATED RED BLOOD CELLS (BEAKER) (test 1 /100 WBC 0-0 kibu=149) (CELLAVISION MANUAL DIFF)2019-07-13 08:39:00 Test Item Value Reference Range Comments NEUTROPHILS - REL (CELLAVISION)(BEAKER) (test 80 % byvy=6637) LYMPHOCYTES - REL (CELLAVISION)(BEAKER) (test 7 % mlgo=4940) MONOCYTES - REL (CELLAVISION)(BEAKER) (test 10 % cklc=0665) MYELOCYTES - REL (CELLAVISION)(BEAKER) (test 1 % 0-0 xaex=2911) ATYPICAL LYMPHOCYTES - REL (CELLAVISION)(BEAKER) 2 % 0-0 (test zwkc=4183) NEUTROPHILS - ABS (CELLAVISION)(BEAKER) (test 25.52 K/ul 1.78-5.38 bmmk=2387) LYMPHOCYTES - ABS (CELLAVISION)(BEAKER) (test 2.23 K/ul 1.32-3.57 xiij=5677) MONOCYTES - ABS (CELLAVISION)(BEAKER) (test 3.19 K/uL 0.30-0.82 eccg=0816) MYELOCYTES-ABS (CELLAVISION)(BEAKER) (test 0.32 K/uL 0.00-0.00 fawk=3319) ATYPICAL LYMPHOCYTES - ABS (CELLAVISION)(BEAKER) 0.64 K/uL 0.00-0.00 (test zpjk=7665) TOTAL COUNTED (BEAKER) (test qvid=8975) 100 WBC MORPHOLOGY (BEAKER) (test riiy=748) Normal PLT MORPHOLOGY (BEAKER) (test bgxc=947) Normal ANISOCYTOSIS (BEAKER) (test vwtt=260) 1+ few POIKILOCYTES (BEAKER) (test mfva=523) 1+ few ARTIFACT (CELLAVISION)(BEAKER) (test oqaw=2780) Present PLATELET CONCENTRATION (CELLAVISION)(BEAKER) Adequate (test opjz=1962) Received comment: User comments: Slide comments:BASIC METABOLIC [id number] 05:58:00 Test Item Value Reference Range Comments SODIUM (BEAKER) (test 142 meq/L 136-145 uzpb=804) POTASSIUM (BEAKER) (test 3.6 meq/L 3.5-5.1 rdzp=312) CHLORIDE (BEAKER) (test 107 meq/L 98-107 jxft=741) CO2 (BEAKER) (test 31 meq/L 22-29 fait=636) BLOOD UREA NITROGEN 14 mg/dL 7-21 (BEAKER) (test rwqj=047) CREATININE (BEAKER) (test 0.58 mg/dL 0.57-1.25 vfho=051) GLUCOSE RANDOM (BEAKER) 113 mg/dL 70-105 (test rppk=332) CALCIUM (BEAKER) (test 7.9 mg/dL 8.4-10.2 ivli=257) EGFR (BEAKER) (test 147 mL/min/1.73 sq m ESTIMATED GFR IS NOT pnlo=5581) ACCURATE CREATININE CLEARANCE IN PREDICTING GLOMERULAR FILTRATION RATE. ESTIMATED GFR IS NOT APPLICABLE FOR DIALYSIS PATIENTS. RAD, HIP, 2 VIEWS, [id number] 01:46:00Reason for exam:->total hip arthoplasty with persistent [...] recommended. Signed: Sabra Martinez Verified Date/Time: 07/13/2019 01: 46:35 Reading Location: [address] Reading Room RAD, KNEE, 3 VIEWS, [id number] 01:45:00Reason for exam:->hardware with leukocytosisFINAL REPORT CLINICAL [...] recommended. Signed: Sabra Martinez Verified Date/Time: 07/13/2019 01:45:04 Reading Location: [address] Reading Room RAD, KNEE, 3 VIEWS, [id number] 01:43:00Reason for exam:->leukocytosisFINAL REPORT CLINICAL HISTORY: Leukocytosis [...] Martinez Verified Date/Time: 07/13/2019 01:43:49 Reading Location: [address] Reading Room RAD, CHEST, 1 VIEW, NON [id number] 01:42:00Reason for exam:->leukocytosisShould this be performed at [...] Martinez Verified Date/Time: 07/13/2019 01:42:05 Reading Location: [address] Reading Room Electronically signed by: SABRA MARTINEZ M.D. on 01:42 AMRAD, HIP, 2 VIEWS, [id number] 01:40:00Reason for exam:-> total hip arthoplasty with [...] MDReport Verified Date/Time: 2018 01:40:58 Reading Location: [address] Reading Room CBC W/PLT COUNT & AUTO [id number] 10:58:00 Test Item Value Reference Range Comments WHITE BLOOD CELL COUNT (BEAKER) (test zxid=858) 30.9 K/ L 3.5-10.5 RED BLOOD CELL COUNT (BEAKER) (test eqqv=121) 3.01 M/ L 4.63-6.08 HEMOGLOBIN (BEAKER) (test xluz=937) 9.0 GM/DL 13.7-17.5 HEMATOCRIT (BEAKER) (test mnqt=973) 28.0 % 40.1-51.0 MEAN CORPUSCULAR VOLUME (BEAKER) (test nmwt=094) 93.0 fL 79.0-92.2 MEAN CORPUSCULAR HEMOGLOBIN (BEAKER) (test 29.9 pg 25.7-32.2 atbd=713) MEAN CORPUSCULAR HEMOGLOBIN CONC (BEAKER) (test 32.1 GM/DL 32.3-36.5 wwes=402) RED CELL DISTRIBUTION WIDTH (BEAKER) (test 23.9 % 11.6-14.4 mzlg=276) PLATELET COUNT (BEAKER) (test tnnd=211) 345 K/CU MM 150-450 MEAN PLATELET VOLUME (BEAKER) (test llnx=343) 9.4 fL 9.4-12.4 NUCLEATED RED BLOOD CELLS (BEAKER) (test 1 /100 WBC 0-0 pvou=574) (CELLAVISION MANUAL DIFF)2019-07-12 10:58:00 Test Item Value Reference Range Comments NEUTROPHILS - REL (CELLAVISION)(BEAKER) (test 89 % fmrk=3146) LYMPHOCYTES - REL (CELLAVISION)(BEAKER) (test 2 % hzho=1739) MONOCYTES - REL (CELLAVISION)(BEAKER) (test 5 % pspq=5089) MYELOCYTES - REL (CELLAVISION)(BEAKER) (test 1 % 0-0 diyq=2992) BANDS - REL (CELLAVISION)(BEAKER) (test 3 % 0-10 ynsm=2389) NEUTROPHILS - ABS (CELLAVISION)(BEAKER) (test 27.50 K/ul 1.78-5.38 iokj=5387) LYMPHOCYTES - ABS (CELLAVISION)(BEAKER) (test 0.62 K/ul 1.32-3.57 jhky=3849) MONOCYTES - ABS (CELLAVISION)(BEAKER) (test 1.55 K/uL 0.30-0.82 wwbx=2267) MYELOCYTES-ABS (CELLAVISION)(BEAKER) (test 0.31 K/uL 0.00-0.00 crjx=6649) BANDS - ABS (CELLAVISION)(BEAKER) (test 0.93 K/uL 0.00-0.80 pseh=3617) TOTAL COUNTED (BEAKER) (test rmcs=7998) 100 WBC MORPHOLOGY (BEAKER) (test scjf=080) Normal GIANT PLATELETS (BEAKER) (test llly=571) Present LARGE PLT(BEAKER) (test xioe=5115) Present POLYCHROMATOPHILLIC RBCS(BEAKER) (test idft=360) 2+ moderate HYPOCHROMIA (BEAKER) (test nzxp=227) 1+ few ANISOCYTOSIS (BEAKER) (test dddb=515) 2+ moderate MICROCYTES (BEAKER) (test kwlg=230) 1+ few MACROCYTES (BEAKER) (test fdaz=627) 2+ moderate POIKILOCYTES (BEAKER) (test odyk=864) 1+ few ELLIPTOCYTES (BEAKER) (test ohvo=048) 1+ few OVALOCYTES (BEAKER) (test fjqb=503) 1+ few ABRAN CELLS (BEAKER) (test wmbe=054) 1+ few BASOPHILIC STIPPLING (BEAKER) (test bqyy=698) Present ARTIFACT (CELLAVISION)(BEAKER) (test ijaw=3729) Present PLATELET CONCENTRATION (CELLAVISION)(BEAKER) Adequate (test rwwf=1572) Received comment: User comments: Slide comments:BLOOD [id number] 08:01:00 Test Item Value Reference Range Comments CULTURE (BEAKER) (test mjba=5334) No growth in 5 days BLOOD [id number] 08:01:00 Test Item Value Reference Range Comments CULTURE (BEAKER) (test lgzn=0108) No growth in 5 days BASIC METABOLIC [id number] 05:59:00 Test Item Value Reference Range Comments SODIUM (BEAKER) (test 143 meq/L 136-145 nhyi=339) POTASSIUM (BEAKER) (test 3.6 meq/L 3.5-5.1 kykv=756) CHLORIDE (BEAKER) (test 110 meq/L 98-107 ryum=661) CO2 (BEAKER) (test 30 meq/L 22-29 oulr=775) BLOOD UREA NITROGEN 11 mg/dL 7-21 (BEAKER) (test fvqz=616) CREATININE (BEAKER) (test 0.62 mg/dL 0.57-1.25 rliz=963) GLUCOSE RANDOM (BEAKER) 133 mg/dL 70-105 (test zevy=493) CALCIUM (BEAKER) (test 7.8 mg/dL 8.4-10.2 hqgc=681) EGFR (BEAKER) (test 136 mL/min/1.73 sq m ESTIMATED GFR IS NOT ihvp=4248) ACCURATE CREATININE CLEARANCE IN PREDICTING GLOMERULAR FILTRATION RATE. ESTIMATED GFR IS NOT APPLICABLE FOR DIALYSIS PATIENTS. CBC W/PLT COUNT & AUTO [id number] 11:34:00 Test Item Value Reference Range Comments WHITE BLOOD CELL COUNT (BEAKER) (test tujr=719) 29.2 K/ L 3.5-10.5 RED BLOOD CELL COUNT (BEAKER) (test nghr=600) 3.17 M/ L 4.63-6.08 HEMOGLOBIN (BEAKER) (test vgmc=747) 9.1 GM/DL 13.7-17.5 HEMATOCRIT (BEAKER) (test hblw=372) 29.7 % 40.1-51.0 MEAN CORPUSCULAR VOLUME (BEAKER) (test xkwv=370) 93.7 fL 79.0-92.2 MEAN CORPUSCULAR HEMOGLOBIN (BEAKER) (test 28.7 pg 25.7-32.2 iytw=484) MEAN CORPUSCULAR HEMOGLOBIN CONC (BEAKER) (test 30.6 GM/DL 32.3-36.5 egvh=449) RED CELL DISTRIBUTION WIDTH (BEAKER) (test 23.7 % 11.6-14.4 avwo=287) PLATELET COUNT (BEAKER) (test ifpn=241) 297 K/CU MM 150-450 MEAN PLATELET VOLUME (BEAKER) (test cdmi=464) 10.5 fL 9.4-12.4 NUCLEATED RED BLOOD CELLS (BEAKER) (test 0 /100 WBC 0-0 xxbt=031) (CELLAVISION MANUAL DIFF)2019-07-11 11:34:00 Test Item Value Reference Range Comments NEUTROPHILS - REL (CELLAVISION)(BEAKER) (test 83 % nykk=5768) LYMPHOCYTES - REL (CELLAVISION)(BEAKER) (test 7 % xwdi=5629) MONOCYTES - REL (CELLAVISION)(BEAKER) (test 5 % iiew=2090) METAMYELOCYTES - REL (CELLAVISION)(BEAKER) (test 3 % 0-0 kbea=9310) MYELOCYTES - REL (CELLAVISION)(BEAKER) (test 2 % 0-0 qash=1278) NEUTROPHILS - ABS (CELLAVISION)(BEAKER) (test 24.24 K/ul 1.78-5.38 hqjm=2917) LYMPHOCYTES - ABS (CELLAVISION)(BEAKER) (test 2.04 K/ul 1.32-3.57 oieo=7034) MONOCYTES - ABS (CELLAVISION)(BEAKER) (test 1.46 K/uL 0.30-0.82 dmuj=5233) METAMYELOCYTES - ABS (CELLAVISION)(BEAKER) (test 0.88 K/uL 0.00-0.00 oqhb=3250) MYELOCYTES-ABS (CELLAVISION)(BEAKER) (test 0.58 K/uL 0.00-0.00 epts=8243) TOTAL COUNTED (BEAKER) (test erno=6288) 100 WBC MORPHOLOGY (BEAKER) (test uwwd=781) Normal PLT MORPHOLOGY (BEAKER) (test ivii=749) Normal POLYCHROMATOPHILLIC RBCS(BEAKER) (test sbql=153) 2+ moderate ANISOCYTOSIS (BEAKER) (test gzdo=355) 1+ few MACROCYTES (BEAKER) (test jhom=107) 1+ few POIKILOCYTES (BEAKER) (test qipy=080) 3+ many ABRAN CELLS (BEAKER) (test zznm=503) 1+ few ARTIFACT (CELLAVISION)(BEAKER) (test wqgc=7280) Present PLATELET CONCENTRATION (CELLAVISION)(BEAKER) Adequate (test wxya=3505) Received comment: User comments: Slide comments:[id number] 06:55:00 Test Item Value Reference Range Comments PROCALCITONIN (BEAKER) (test asmw=9788) 0.61 ng/mL <0.05 SEPSIS RISK (ng/mL)Low: 0.05-0.50Intermediate: 0.51-2.00High: & gt;=2.01BASIC METABOLIC [id number] 06:43:00 Test Item Value Reference Range Comments SODIUM (BEAKER) (test 140 meq/L 136-145 hddt=418) POTASSIUM (BEAKER) (test 4.0 meq/L 3.5-5.1 dahv=030) CHLORIDE (BEAKER) (test 110 meq/L 98-107 cbcr=935) CO2 (BEAKER) (test 27 meq/L 22-29 hdgd=624) BLOOD UREA NITROGEN 8 mg/dL 7-21 (BEAKER) (test xhzf=343) CREATININE (BEAKER) (test 0.60 mg/dL 0.57-1.25 fvpe=023) GLUCOSE RANDOM (BEAKER) 135 mg/dL 70-105 (test zpoo=779) CALCIUM (BEAKER) (test 7.7 mg/dL 8.4-10.2 letd=922) EGFR (BEAKER) (test 141 mL/min/1.73 sq m ESTIMATED GFR IS NOT hnkb=3030) ACCURATE CREATININE CLEARANCE IN PREDICTING GLOMERULAR FILTRATION RATE. ESTIMATED GFR IS NOT APPLICABLE FOR DIALYSIS PATIENTS. [id number] 06:36:00 Test Item Value Reference Range Comments MAGNESIUM (BEAKER) (test xvpy=573) 2.0 mg/dL 1.6-2.6 [id number] 06:36:00 Test Item Value Reference Range Comments ALBUMIN (BEAKER) (test rhcy=1637) 2.3 g/dL 3.5-5.0 CALCIUM, [id number] 05:32:00 Test Item Value Reference Range Comments CALCIUM IONIZED (BEAKER) (test wuvg=759) 1.09 mmol/L 1.12-1.27 PH, BLOOD (BEAKER) (test jkox=5029) 7.42 [id number] 13:34:00 Test Item Value Reference Range Comments POTASSIUM (BEAKER) (test avbu=052) 3.6 meq/L 3.5-5.1 HEMOGLOBIN AND [id number] 12:50:00 Test Item Value Reference Range Comments HEMOGLOBIN (BEAKER) (test ybag=385) 9.1 GM/DL 13.7-17.5 HEMATOCRIT (BEAKER) (test lmjv=729) 29.0 % 40.1-51.0 MRSA [id number] 11:38:00 Test Item Value Reference Range Comments CULTURE (BEAKER) (test szvj=0018) No MRSA isolated POCT-GLUCOSE [id number] 06:38:00 Test Item Value Reference Range Comments POC-GLUCOSE METER (BEAKER) 134 mg/dL 70-[address] [facility] [address] [place] [address] (test lwtc=0547) [facility] [address] BASIC METABOLIC [id number] 05:06:00 Test Item Value Reference Range Comments SODIUM (BEAKER) (test 140 meq/L 136-145 dbxm=656) POTASSIUM (BEAKER) (test 3.5 meq/L 3.5-5.1 rdxy=603) CHLORIDE (BEAKER) (test 111 meq/L 98-107 brmf=282) CO2 (BEAKER) (test 28 meq/L 22-29 sdtr=248) BLOOD UREA NITROGEN 6 mg/dL 7-21 (BEAKER) (test jjbu=517) CREATININE (BEAKER) (test 0.62 mg/dL 0.57-1.25 sqsi=291) GLUCOSE RANDOM (BEAKER) 141 mg/dL 70-105 (test xriu=314) CALCIUM (BEAKER) (test 7.4 mg/dL 8.4-10.2 jtme=904) EGFR (BEAKER) (test 136 mL/min/1.73 sq m ESTIMATED GFR IS NOT tkqm=3625) ACCURATE CREATININE CLEARANCE IN PREDICTING GLOMERULAR FILTRATION RATE. ESTIMATED GFR IS NOT APPLICABLE FOR DIALYSIS PATIENTS. [id number] 05:02:00 Test Item Value Reference Range Comments MAGNESIUM (BEAKER) (test wsxz=139) 2.0 mg/dL 1.6-2.6 CBC W/PLT COUNT & AUTO [id number] 04:53:00 Test Item Value Reference Range Comments WHITE BLOOD CELL COUNT (BEAKER) (test gopy=470) 25.6 K/ L 3.5-10.5 RED BLOOD CELL COUNT (BEAKER) (test hrnj=613) 2.94 M/ L 4.63-6.08 HEMOGLOBIN (BEAKER) (test fuan=845) 8.4 GM/DL 13.7-17.5 HEMATOCRIT (BEAKER) (test piso=890) 26.7 % 40.1-51.0 MEAN CORPUSCULAR VOLUME (BEAKER) (test pbgo=338) 90.8 fL 79.0-92.2 MEAN CORPUSCULAR HEMOGLOBIN (BEAKER) (test 28.6 pg 25.7-32.2 bpae=140) MEAN CORPUSCULAR HEMOGLOBIN CONC (BEAKER) (test 31.5 GM/DL 32.3-36.5 ijsj=765) RED CELL DISTRIBUTION WIDTH (BEAKER) (test 22.5 % 11.6-14.4 gyfl=132) PLATELET COUNT (BEAKER) (test kyvy=654) 239 K/CU MM 150-450 MEAN PLATELET VOLUME (BEAKER) (test ntpq=822) 10.0 fL 9.4-12.4 NUCLEATED RED BLOOD CELLS (BEAKER) (test 0 /100 WBC 0-0 uvfb=206) NEUTROPHILS RELATIVE PERCENT (BEAKER) (test 86 % txko=630) LYMPHOCYTES RELATIVE PERCENT (BEAKER) (test 5 % wych=056) MONOCYTES RELATIVE PERCENT (BEAKER) (test 6 % vrcy=293) EOSINOPHILS RELATIVE PERCENT (BEAKER) (test 0 % kunn=497) BASOPHILS RELATIVE PERCENT (BEAKER) (test 0 % qapb=998) NEUTROPHILS ABSOLUTE COUNT (BEAKER) (test 21.92 K/ L 1.78-5.38 yfxb=897) LYMPHOCYTES ABSOLUTE COUNT (BEAKER) (test 1.14 K/ L 1.32-3.57 rmln=613) MONOCYTES ABSOLUTE COUNT (BEAKER) (test 1.64 K/ L 0.30-0.82 ygye=290) EOSINOPHILS ABSOLUTE COUNT (BEAKER) (test 0.01 K/ L 0.04-0.54 aqxv=076) BASOPHILS ABSOLUTE COUNT (BEAKER) (test 0.04 K/ L 0.01-0.08 nzjb=317) IMMATURE GRANULOCYTES-RELATIVE PERCENT (BEAKER) 3 % 0-1 (test jdua=0153) POCT-GLUCOSE [id number] 00:09:00 Test Item Value Reference Range Comments POC-GLUCOSE METER (BEAKER) 181 mg/dL 70-110 TESTED AT [address] (test ksrw=0210) [place] [address] POCT-GLUCOSE [id number] 19:24:00 Test Item Value Reference Range Comments POC-GLUCOSE METER (BEAKER) 121 mg/dL 70-110 TESTED AT [address] (test ioos=7903) [place] [address] LACTIC ACID, [id number] 16:46:00 Test Item Value Reference Range Comments LACTATE BLOOD VENOUS (2) (BEAKER) (test 1.9 mmol/L 0.5-2.2 iyha=4830) HEMOGLOBIN AND [id number] 16:36:00 Test Item Value Reference Range Comments HEMOGLOBIN (BEAKER) (test ybzt=928) 8.0 GM/DL 13.7-17.5 HEMATOCRIT (BEAKER) (test hbyy=886) 24.5 % 40.1-51.0 CBC W/PLT COUNT & AUTO [id number] 16:02:00 Test Item Value Reference Range Comments WHITE BLOOD CELL COUNT (BEAKER) (test muka=513) 22.0 K/ L 3.5-10.5 RED BLOOD CELL COUNT (BEAKER) (test ogni=672) 2.92 M/ L 4.63-6.08 HEMOGLOBIN (BEAKER) (test znox=584) 8.3 GM/DL 13.7-17.5 HEMATOCRIT (BEAKER) (test ozmx=990) 26.4 % 40.1-51.0 MEAN CORPUSCULAR VOLUME (BEAKER) (test yvba=526) 90.4 fL 79.0-92.2 MEAN CORPUSCULAR HEMOGLOBIN (BEAKER) (test 28.4 pg 25.7-32.2 xgpg=823) MEAN CORPUSCULAR HEMOGLOBIN CONC (BEAKER) (test 31.4 GM/DL 32.3-36.5 chse=764) RED CELL DISTRIBUTION WIDTH (BEAKER) (test 22.1 % 11.6-14.4 wdnd=444) PLATELET COUNT (BEAKER) (test kdkx=863) 220 K/CU MM 150-450 MEAN PLATELET VOLUME (BEAKER) (test enlp=031) 9.7 fL 9.4-12.4 NUCLEATED RED BLOOD CELLS (BEAKER) (test 0 /100 WBC 0-0 vqpb=871) NEUTROPHILS RELATIVE PERCENT (BEAKER) (test 88 % vmme=393) LYMPHOCYTES RELATIVE PERCENT (BEAKER) (test 3 % lrvx=079) MONOCYTES RELATIVE PERCENT (BEAKER) (test 5 % vpvs=333) EOSINOPHILS RELATIVE PERCENT (BEAKER) (test 0 % dxvi=387) BASOPHILS RELATIVE PERCENT (BEAKER) (test 0 % jjtr=034) NEUTROPHILS ABSOLUTE COUNT (BEAKER) (test 19.36 K/ L 1.78-5.38 gile=367) LYMPHOCYTES ABSOLUTE COUNT (BEAKER) (test 0.72 K/ L 1.32-3.57 frtu=679) MONOCYTES ABSOLUTE COUNT (BEAKER) (test 1.15 K/ L 0.30-0.82 bjtn=514) EOSINOPHILS ABSOLUTE COUNT (BEAKER) (test 0.06 K/ L 0.04-0.54 zfve=555) BASOPHILS ABSOLUTE COUNT (BEAKER) (test 0.04 K/ L 0.01-0.08 elml=469) IMMATURE GRANULOCYTES-RELATIVE PERCENT (BEAKER) 3 % 0-1 (test xxrv=8542) BASIC METABOLIC [id number] 12:32:00 Test Item Value Reference Range Comments SODIUM (BEAKER) (test 139 meq/L 136-145 hncv=872) POTASSIUM (BEAKER) (test 3.8 meq/L 3.5-5.1 lwet=937) CHLORIDE (BEAKER) (test 112 meq/L 98-107 aabg=775) CO2 (BEAKER) (test 24 meq/L 22-29 wcrc=444) BLOOD UREA NITROGEN 4 mg/dL 7-21 (BEAKER) (test itra=979) CREATININE (BEAKER) (test 0.64 mg/dL 0.57-1.25 muiw=638) GLUCOSE RANDOM (BEAKER) 131 mg/dL 70-105 (test yveg=489) CALCIUM (BEAKER) (test 7.1 mg/dL 8.4-10.2 xzfm=805) EGFR (BEAKER) (test 131 mL/min/1.73 sq m ESTIMATED GFR IS NOT typo=6216) ACCURATE CREATININE CLEARANCE IN PREDICTING GLOMERULAR FILTRATION RATE. ESTIMATED GFR IS NOT APPLICABLE FOR DIALYSIS PATIENTS. POCT-GLUCOSE [id number] 12:08:00 Test Item Value Reference Range Comments POC-GLUCOSE METER (BEAKER) 175 mg/dL 70-[address] [facility] [address] [facility] (test jhmj=5051) [facility] [address] HEMOGLOBIN AND [id number] 12:07:00 Test Item Value Reference Range Comments HEMOGLOBIN (BEAKER) (test lvxu=940) 8.5 GM/DL 13.7-17.5 HEMATOCRIT (BEAKER) (test gurq=346) 26.4 % 40.1-51.0 [id number] 11:16:00 Test Item Value Reference Range Comments MAGNESIUM (BEAKER) (test ivhl=272) 2.3 mg/dL 1.6-2.6 BASIC METABOLIC [id number] 10:18:00 Test Item Value Reference Range Comments SODIUM (BEAKER) (test 141 meq/L 136-145 xobw=350) POTASSIUM (BEAKER) (test 3.9 meq/L 3.5-5.1 albo=648) CHLORIDE (BEAKER) (test 113 meq/L 98-107 fzuz=318) CO2 (BEAKER) (test 26 meq/L 22-29 fjfa=541) BLOOD UREA NITROGEN 4 mg/dL 7-21 (BEAKER) (test mwwp=162) CREATININE (BEAKER) (test 0.67 mg/dL 0.57-1.25 fyjl=099) GLUCOSE RANDOM (BEAKER) 93 mg/dL 70-105 (test srqs=832) CALCIUM (BEAKER) (test 7.3 mg/dL 8.4-10.2 vvym=347) EGFR (BEAKER) (test 125 mL/min/1.73 sq m ESTIMATED GFR IS NOT icxk=5194) ACCURATE CREATININE CLEARANCE IN PREDICTING GLOMERULAR FILTRATION RATE. ESTIMATED GFR IS NOT APPLICABLE FOR DIALYSIS PATIENTS. VANCOMYCIN LEVEL, [id number] 10:14:00 Test Item Value Reference Range Comments VANCOMYCIN TROUGH (BEAKER) (test wkoj=022) 5.5 ug/mL 10.0-20.0 CBC (HEMOGRAM ONLY)2019-07-09 09:02:00 Test Item Value Reference Range Comments WHITE BLOOD CELL COUNT (BEAKER) (test oqwg=556) 22.4 K/ L 3.5-10.5 RED BLOOD CELL COUNT (BEAKER) (test alug=607) 2.80 M/ L 4.63-6.08 HEMOGLOBIN (BEAKER) (test lcza=941) 8.0 GM/DL 13.7-17.5 HEMATOCRIT (BEAKER) (test yskc=088) 25.1 % 40.1-51.0 MEAN CORPUSCULAR VOLUME (BEAKER) (test avny=895) 89.6 fL 79.0-92.2 MEAN CORPUSCULAR HEMOGLOBIN (BEAKER) (test 28.6 pg 25.7-32.2 dcaw=638) MEAN CORPUSCULAR HEMOGLOBIN CONC (BEAKER) (test 31.9 GM/DL 32.3-36.5 lqzs=098) RED CELL DISTRIBUTION WIDTH (BEAKER) (test 21.8 % 11.6-14.4 trpv=964) PLATELET COUNT (BEAKER) (test dzdp=827) 197 K/CU MM 150-450 MEAN PLATELET VOLUME (BEAKER) (test ricg=376) 9.7 fL 9.4-12.4 NUCLEATED RED BLOOD CELLS (BEAKER) (test 0 /100 WBC 0-0 ytnz=547) HEMOGLOBIN AND [id number] 08:10:00 Test Item Value Reference Range Comments HEMOGLOBIN (BEAKER) (test tdcg=113) 7.9 GM/DL 13.7-17.5 HEMATOCRIT (BEAKER) (test bvev=655) 24.3 % 40.1-51.0 POCT-GLUCOSE [id number] 05:56:00 Test Item Value Reference Range Comments POC-GLUCOSE METER (BEAKER) 113 mg/dL 70-110 TESTED AT [address] (test nyfu=6566) [facility] [address] BASIC METABOLIC [id number] 04:31:00 Test Item Value Reference Range Comments SODIUM (BEAKER) (test 141 meq/L 136-145 gxca=937) POTASSIUM (BEAKER) (test 3.3 meq/L 3.5-5.1 nofc=923) CHLORIDE (BEAKER) (test 112 meq/L 98-107 zmfx=361) CO2 (BEAKER) (test 27 meq/L 22-29 fztm=938) BLOOD UREA NITROGEN 3 mg/dL 7-21 (BEAKER) (test uhfh=478) CREATININE (BEAKER) (test 0.66 mg/dL 0.57-1.25 gvki=230) GLUCOSE RANDOM (BEAKER) 107 mg/dL 70-105 (test nnyz=963) CALCIUM (BEAKER) (test 6.9 mg/dL 8.4-10.2 vvrf=298) EGFR (BEAKER) (test 127 mL/min/1.73 sq m ESTIMATED GFR IS NOT kaif=3673) ACCURATE CREATININE CLEARANCE IN PREDICTING GLOMERULAR FILTRATION RATE. ESTIMATED GFR IS NOT APPLICABLE FOR DIALYSIS PATIENTS. [id number] 04:21:00 Test Item Value Reference Range Comments MAGNESIUM (BEAKER) (test azvk=349) 2.2 mg/dL 1.6-2.6 CBC W/PLT COUNT & AUTO [id number] 04:07:00 Test Item Value Reference Range Comments WHITE BLOOD CELL COUNT (BEAKER) (test itat=143) 22.9 K/ L 3.5-10.5 RED BLOOD CELL COUNT (BEAKER) (test zawu=702) 3.04 M/ L 4.63-6.08 HEMOGLOBIN (BEAKER) (test vgyw=449) 8.7 GM/DL 13.7-17.5 HEMATOCRIT (BEAKER) (test offh=538) 26.6 % 40.1-51.0 MEAN CORPUSCULAR VOLUME (BEAKER) (test ippt=237) 87.5 fL 79.0-92.2 MEAN CORPUSCULAR HEMOGLOBIN (BEAKER) (test 28.6 pg 25.7-32.2 syum=210) MEAN CORPUSCULAR HEMOGLOBIN CONC (BEAKER) (test 32.7 GM/DL 32.3-36.5 tkul=157) RED CELL DISTRIBUTION WIDTH (BEAKER) (test 21.5 % 11.6-14.4 rsbs=821) PLATELET COUNT (BEAKER) (test hhck=550) 199 K/CU MM 150-450 MEAN PLATELET VOLUME (BEAKER) (test ocec=400) 9.4 fL 9.4-12.4 NUCLEATED RED BLOOD CELLS (BEAKER) (test 0 /100 WBC 0-0 ybki=141) NEUTROPHILS RELATIVE PERCENT (BEAKER) (test 86 % nnfz=844) LYMPHOCYTES RELATIVE PERCENT (BEAKER) (test 5 % onko=711) MONOCYTES RELATIVE PERCENT (BEAKER) (test 6 % lmsd=110) EOSINOPHILS RELATIVE PERCENT (BEAKER) (test 0 % zbgd=742) BASOPHILS RELATIVE PERCENT (BEAKER) (test 0 % ahyj=895) NEUTROPHILS ABSOLUTE COUNT (BEAKER) (test 19.52 K/ L 1.78-5.38 wuhj=986) LYMPHOCYTES ABSOLUTE COUNT (BEAKER) (test 1.05 K/ L 1.32-3.57 kivg=229) MONOCYTES ABSOLUTE COUNT (BEAKER) (test 1.47 K/ L 0.30-0.82 fwha=741) EOSINOPHILS ABSOLUTE COUNT (BEAKER) (test 0.03 K/ L 0.04-0.54 zwac=478) BASOPHILS ABSOLUTE COUNT (BEAKER) (test 0.04 K/ L 0.01-0.08 xgsd=238) IMMATURE GRANULOCYTES-RELATIVE PERCENT (BEAKER) 3 % 0-1 (test niqv=8502) CALCIUM, [id number] 04:00:00 Test Item Value Reference Range Comments CALCIUM IONIZED (BEAKER) (test hlvh=629) 1.04 mmol/L 1.12-1.27 PH, BLOOD (BEAKER) (test huno=2133) 7.40 HEMOGLOBIN AND [id number] 00:26:00 Test Item Value Reference Range Comments HEMOGLOBIN (BEAKER) (test vhrr=636) 7.6 GM/DL 13.7-17.5 HEMATOCRIT (BEAKER) (test ldek=668) 23.0 % 40.1-51.0 POCT-GLUCOSE [id number] 00:20:00 Test Item Value Reference Range Comments POC-GLUCOSE METER (BEAKER) 117 mg/dL 70-[address] [facility] [address] [facility] (test ekbz=0857) [facility] [address] CT, [id number] 19:35:00FINAL REPORT TECHNIQUE: CT of the abdomen [...] on 07/08/2019 at 7:21 PM. Signed: Oscar Whyteeport Verified Date/Time: 07/08/2019 19:35:04 Reading Location: [facility] C013Y CT Body Reading Room POCT- GLUCOSE [id number] 17:58:00 Test Item Value Reference Range Comments POC-GLUCOSE METER (BEAKER) 121 mg/dL 70-110 TESTED AT [address] (test maae=9052) [place] [address] HEMOGLOBIN AND [id number] 16:32:00 Test Item Value Reference Range Comments HEMOGLOBIN (BEAKER) (test quwc=849) 7.5 GM/DL 13.7-17.5 HEMATOCRIT (BEAKER) (test paex=887) 22.9 % 40.1-51.0 POCT-GLUCOSE [id number] 12:03:00 Test Item Value Reference Range Comments POC-GLUCOSE METER (BEAKER) 93 mg/dL 70-110 TESTED AT [address] (test cozg=9940) [place] [address] BASIC METABOLIC [id number] 10:27:00 Test Item Value Reference Range Comments SODIUM (BEAKER) (test 138 meq/L 136-145 htfe=319) POTASSIUM (BEAKER) (test 3.5 meq/L 3.5-5.1 ooyj=959) CHLORIDE (BEAKER) (test 113 meq/L 98-107 yrws=893) CO2 (BEAKER) (test 23 meq/L 22-29 avfo=491) BLOOD UREA NITROGEN 3 mg/dL 7-21 (BEAKER) (test fweb=391) CREATININE (BEAKER) (test 0.59 mg/dL 0.57-1.25 ljce=866) GLUCOSE RANDOM (BEAKER) 115 mg/dL 70-105 (test ndov=183) CALCIUM (BEAKER) (test 7.0 mg/dL 8.4-10.2 tomf=537) EGFR (BEAKER) (test 144 mL/min/1.73 sq m ESTIMATED GFR IS NOT tnld=0200) ACCURATE CREATININE CLEARANCE IN PREDICTING GLOMERULAR FILTRATION RATE. ESTIMATED GFR IS NOT APPLICABLE FOR DIALYSIS PATIENTS. [id number] 10:16:00 Test Item Value Reference Range Comments MAGNESIUM (BEAKER) (test hklk=581) 1.4 mg/dL 1.6-2.6 CALCIUM, [id number] 09:50:00 Test Item Value Reference Range Comments CALCIUM IONIZED (BEAKER) (test osel=006) 1.06 mmol/L 1.12-1.27 PH, BLOOD (BEAKER) (test jman=3371) 7.47 CBC W/PLT COUNT & AUTO [id number] 09:11:00 Test Item Value Reference Range Comments WHITE BLOOD CELL COUNT (BEAKER) (test ktpf=638) 31.6 K/ L 3.5-10.5 RED BLOOD CELL COUNT (BEAKER) (test ltml=505) 2.90 M/ L 4.63-6.08 HEMOGLOBIN (BEAKER) (test vkjy=808) 8.1 GM/DL 13.7-17.5 HEMATOCRIT (BEAKER) (test qtal=106) 25.1 % 40.1-51.0 MEAN CORPUSCULAR VOLUME (BEAKER) (test neou=603) 86.6 fL 79.0-92.2 MEAN CORPUSCULAR HEMOGLOBIN (BEAKER) (test 27.9 pg 25.7-32.2 cgay=761) MEAN CORPUSCULAR HEMOGLOBIN CONC (BEAKER) (test 32.3 GM/DL 32.3-36.5 buxm=298) RED CELL DISTRIBUTION WIDTH (BEAKER) (test 20.0 % 11.6-14.4 wrzh=316) PLATELET COUNT (BEAKER) (test iwgy=724) 138 K/CU MM 150-450 MEAN PLATELET VOLUME (BEAKER) (test tnkw=314) 9.8 fL 9.4-12.4 NUCLEATED RED BLOOD CELLS (BEAKER) (test 0 /100 WBC 0-0 tvcf=211) (CELLAVISION MANUAL DIFF)2019-07-08 09:11:00 Test Item Value Reference Range Comments NEUTROPHILS - REL (CELLAVISION)(BEAKER) (test 98 % oaaw=7041) MONOCYTES - REL (CELLAVISION)(BEAKER) (test 1 % ggpw=3483) METAMYELOCYTES - REL (CELLAVISION)(BEAKER) (test 1 % 0-0 cauq=2359) NEUTROPHILS - ABS (CELLAVISION)(BEAKER) (test 30.97 K/ul 1.78-5.38 xqdy=3834) MONOCYTES - ABS (CELLAVISION)(BEAKER) (test 0.32 K/uL 0.30-0.82 pjvc=2071) METAMYELOCYTES - ABS (CELLAVISION)(BEAKER) (test 0.32 K/uL 0.00-0.00 ievg=8094) TOTAL COUNTED (BEAKER) (test ggna=9203) 100 WBC MORPHOLOGY (BEAKER) (test kujb=081) Normal PLT MORPHOLOGY (BEAKER) (test kbuy=963) Normal POLYCHROMATOPHILLIC RBCS(BEAKER) (test vlof=904) 1+ few ANISOCYTOSIS (BEAKER) (test amyx=405) 1+ few BASOPHILIC STIPPLING (BEAKER) (test hjuw=507) Present ARTIFACT (CELLAVISION)(BEAKER) (test pksp=1790) Present PLATELET CONCENTRATION (CELLAVISION)(BEAKER) Decreased (test pdzf=9116) Received comment: User comments: Slide comments:POCT-GLUCOSE [id number] 06: 28:00 Test Item Value Reference Range Comments POC-GLUCOSE METER (BEAKER) 108 mg/dL 70-110 TESTED AT [address] (test pxlx=7003) [place] [id number] POCT-GLUCOSE [id number] 05:09:00 Test Item Value Reference Range Comments POC-GLUCOSE METER (BEAKER) 82 mg/dL 70-110 TESTED AT [address] (test fscm=6795) [facility] [address] [id number] 04:07:00 Test Item Value Reference Range Comments FERRITIN (BEAKER) (test uvoq=190) 154 ng/mL 5-275 BASIC METABOLIC [id number] 03:53:00 Test Item Value Reference Range Comments SODIUM (BEAKER) (test 141 meq/L 136-145 sxbi=668) POTASSIUM (BEAKER) (test 3.4 meq/L 3.5-5.1 cjrt=691) CHLORIDE (BEAKER) (test 113 meq/L 98-107 zira=468) CO2 (BEAKER) (test 24 meq/L 22-29 kptb=974) BLOOD UREA NITROGEN 3 mg/dL 7-21 (BEAKER) (test wtcg=553) CREATININE (BEAKER) (test 0.57 mg/dL 0.57-1.25 gohn=198) GLUCOSE RANDOM (BEAKER) 96 mg/dL 70-105 (test xnnh=443) CALCIUM (BEAKER) (test 7.2 mg/dL 8.4-10.2 ohej=457) EGFR (BEAKER) (test 150 mL/min/1.73 sq m ESTIMATED GFR IS NOT opik=2083) ACCURATE CREATININE CLEARANCE IN PREDICTING GLOMERULAR FILTRATION RATE. ESTIMATED GFR IS NOT APPLICABLE FOR DIALYSIS PATIENTS. HEPATIC FUNCTION [id number] 03:51:00 Test Item Value Reference Range Comments TOTAL PROTEIN (BEAKER) (test xofz=729) 3.6 gm/dL 6.0-8.3 ALBUMIN (BEAKER) (test lkwh=2274) 2.0 g/dL 3.5-5.0 BILIRUBIN TOTAL (BEAKER) (test uiua=303) 0.9 mg/dL 0.2-1.2 BILIRUBIN DIRECT (BEAKER) (test akyu=324) 0.5 mg/dL 0.1-0.5 ALKALINE PHOSPHATASE (BEAKER) (test itfj=424) 42 U/L 40-150 AST (SGOT) (BEAKER) (test njoq=913) 11 U/L 5-34 ALT (SGPT) (BEAKER) (test hkqt=726) 9 U/L 6-55 LACTIC ACID, [id number] 03:48:00 Test Item Value Reference Range Comments LACTATE BLOOD ARTERIAL (2) (BEAKER) (test 0.8 mmol/L 0.5-2.2 ilfh=6058) PROTHROMBIN TIME/[id number] 03:43:00 Test Item Value Reference Range Comments PROTIME (BEAKER) (test ppnd=119) 16.4 seconds 11.9-14.2 INR (BEAKER) (test fjkr=207) 1.4 <=5.9 Effective 04/02/2019: PT Reference Range ChangeNew: 11.9-14.2 Previous: 11.7- 14.7RECOMMENDED COUMADIN/WARFARIN INR THERAPY RANGESSTANDARD DOSE: 2.0-3.0 Includes: PROPHYLAXIS for venous thrombosis, systemic embolization; TREATMENT for venous thrombosis and/or pulmonary embolus.HIGH RISK: Target INR is2.5-3.5 for patients wiht mechanical heart valves.HEMOGLOBIN AND [id number] 03 :32:00 Test Item Value Reference Range Comments HEMOGLOBIN (BEAKER) (test uuvl=212) 8.1 GM/DL 13.7-17.5 HEMATOCRIT (BEAKER) (test syfo=900) 24.3 % 40.1-51.0 HEMOGLOBIN AND [id number] 22:53:00 Test Item Value Reference Range Comments HEMOGLOBIN (BEAKER) (test mybz=638) 7.9 GM/DL 13.7-17.5 HEMATOCRIT (BEAKER) (test uzlx=048) 23.8 % 40.1-51.0 [id number] 19:45:00 Test Item Value Reference Range Comments PROTIME (BEAKER) (test tbek=199) 16.5 seconds 11.9-14.2 INR (BEAKER) (test hcly=799) 1.4 <=5.9 PARTIAL THROMBOPLASTIN TIME (BEAKER) (test 30.9 seconds 22.5-36.0 acek=322) Effective 04/02/2019: PT Reference Range ChangeNew: 11.9-14.2 Previous: 11.7- 14.7RECOMMENDED COUMADIN/WARFARIN INR THERAPY RANGESSTANDARD DOSE: 2.0-3.0 Includes: PROPHYLAXIS for venous thrombosis, systemic embolization; TREATMENT for venous thrombosis and/or pulmonary embolus.HIGH RISK: Target INR is2.5-3.5 for patients wiht mechanical heart valves.POCT-GLUCOSE [id number] 19:33:00 Test Item Value Reference Range Comments POC-GLUCOSE METER (BEAKER) 101 mg/dL 70-[address] [facility] [address] [facility] (test aczx=7331) [facility] [address] CALCIUM, [id number] 18:17:00 Test Item Value Reference Range Comments CALCIUM IONIZED (BEAKER) (test mwik=711) 1.08 mmol/L 1.12-1.27 PH, BLOOD (BEAKER) (test sgqm=9863) 7.37 BLOOD GAS, [id number] 18:15:00 Test Item Value Reference Range Comments PH ARTERIAL (BEAKER) (test ewkc=553) 7.37 7.35-7.45 PCO2 ARTERIAL (BEAKER) (test rfyl=497) 36 mmHg 35-45 PO2 ARTERIAL (BEAKER) (test hino=140) 149 mmHg 80-90 O2 SATURATION ARTERIAL (BEAKER) (test mbjl=542) 98.9 % 96.0-97.0 HCO3 ARTERIAL (BEAKER) (test vxcj=057) 20 mmol/L 21-29 BASE EXCESS ARTERIAL (BEAKER) (test bmgt=162) -4.5 mmol/L -2.0-3.0 PATIENT TEMPERATURE (BEAKER) (test vfuo=2473) 37.0 C FIO2 (BEAKER) (test odbc=9840) 100.0 % POTASSIUM-STAT [id number] 18:15:00 Test Item Value Reference Range Comments POTASSIUM (BEAKER) (test mvoa=615) 3.3 meq/L 3.6-5.5 GLUCOSE-STAT [id number] 18:15:00 Test Item Value Reference Range Comments GLUCOSE RANDOM (BEAKER) (test vvry=568) 138 mg/dL 70-110 HGB/HCT (H&H) - STAT [id number] 18:15:00 Test Item Value Reference Range Comments HEMOGLOBIN (BEAKER) (test omzx=554) 8.7 g/dL 13.0-16.8 HEMATOCRIT (BEAKER) (test xsib=205) 26.0 % 40.0-50.0 SODIUM NA-STAT [id number] 18:13:00 Test Item Value Reference Range Comments SODIUM (BEAKER) (test fszp=322) 137 meq/L 135-148 LACTIC ACID, [id number] 16:40:00 Test Item Value Reference Range Comments LACTATE BLOOD ARTERIAL (2) (BEAKER) (test 1.4 mmol/L 0.5-2.2 iygj=7130) HEMOGLOBIN AND [id number] 16:24:00 Test Item Value Reference Range Comments HEMOGLOBIN (BEAKER) (test hffb=903) 7.5 GM/DL 13.7-17.5 HEMATOCRIT (BEAKER) (test drxn=805) 22.6 % 40.1-51.0 HGB/HCT (H&H) - STAT [id number] 15:47:00 Test Item Value Reference Range Comments HEMOGLOBIN (BEAKER) (test loke=023) 9.1 g/dL 13.0-16.8 HEMATOCRIT (BEAKER) (test mrts=316) 27.0 % 40.0-50.0 BLOOD GAS, [id number] 12:36:00 Test Item Value Reference Range Comments PH ARTERIAL (BEAKER) (test tmxt=973) 7.40 7.35-7.45 PCO2 ARTERIAL (BEAKER) (test fzbl=597) 45 mmHg 35-45 PO2 ARTERIAL (BEAKER) (test uexm=745) 34 mmHg 80-90 O2 SATURATION ARTERIAL (BEAKER) (test zvab=755) 67.7 % 96.0-97.0 HCO3 ARTERIAL (BEAKER) (test jbcy=251) 27 mmol/L 21-29 BASE EXCESS ARTERIAL (BEAKER) (test vxcb=517) 1.6 mmol/L -2.0-3.0 PATIENT TEMPERATURE (BEAKER) (test rlhz=8229) 36.0 C FIO2 (BEAKER) (test yddx=0776) 21.0 % [id number] 12:32:00 Test Item Value Reference Range Comments MAGNESIUM (BEAKER) (test 1.7 mg/dL 1.6-2.6 Specimen slightly hemolyzed ukal=715) POTASSIUM-STAT [id number] 12:31:00 Test Item Value Reference Range Comments POTASSIUM (BEAKER) (test ovxo=612) 3.2 meq/L 3.6-5.5 HGB/HCT (H&H) - STAT [id number] 12:31:00 Test Item Value Reference Range Comments HEMOGLOBIN (BEAKER) (test mbgt=976) 9.7 g/dL 13.0-16.8 HEMATOCRIT (BEAKER) (test ugdq=253) 29.0 % 40.0-50.0 GLUCOSE-STAT [id number] 12:29:00 Test Item Value Reference Range Comments GLUCOSE RANDOM (BEAKER) (test cswp=748) 100 mg/dL 70-110 SODIUM NA-STAT [id number] 12:29:00 Test Item Value Reference Range Comments SODIUM (BEAKER) (test kjfp=292) 136 meq/L 135-148 POCT-GLUCOSE [id number] 11:50:00 Test Item Value Reference Range Comments POC-GLUCOSE METER (BEAKER) 88 mg/dL 70-[address] [facility] [address] [facility] (test byds=9307) [facility] [address] BASIC METABOLIC [id number] 09:48:00 Test Item Value Reference Range Comments SODIUM (BEAKER) (test 139 meq/L 136-145 rhqu=041) POTASSIUM (BEAKER) (test 3.6 meq/L 3.5-5.1 dewn=628) CHLORIDE (BEAKER) (test 110 meq/L 98-107 ontc=939) CO2 (BEAKER) (test 26 meq/L 22-29 klmk=647) BLOOD UREA NITROGEN 4 mg/dL 7-21 (BEAKER) (test nnsb=093) CREATININE (BEAKER) (test 0.55 mg/dL 0.57-1.25 ynbd=974) GLUCOSE RANDOM (BEAKER) 103 mg/dL 70-105 (test exov=701) CALCIUM (BEAKER) (test 7.1 mg/dL 8.4-10.2 jqhy=270) EGFR (BEAKER) (test 156 mL/min/1.73 sq m ESTIMATED GFR IS NOT tjtx=6409) ACCURATE CREATININE CLEARANCE IN PREDICTING GLOMERULAR FILTRATION RATE. ESTIMATED GFR IS NOT APPLICABLE FOR DIALYSIS PATIENTS. CBC W/PLT COUNT & AUTO [id number] 09:44:00 Test Item Value Reference Range Comments WHITE BLOOD CELL COUNT (BEAKER) (test pgoj=562) 28.0 K/ L 3.5-10.5 RED BLOOD CELL COUNT (BEAKER) (test bymo=866) 3.18 M/ L 4.63-6.08 HEMOGLOBIN (BEAKER) (test jclz=286) 10.0 GM/DL 13.7-17.5 HEMATOCRIT (BEAKER) (test ysos=321) 30.1 % 40.1-51.0 MEAN CORPUSCULAR VOLUME (BEAKER) (test bfal=370) 94.7 fL 79.0-92.2 MEAN CORPUSCULAR HEMOGLOBIN (BEAKER) (test 31.4 pg 25.7-32.2 dpna=687) MEAN CORPUSCULAR HEMOGLOBIN CONC (BEAKER) (test 33.2 GM/DL 32.3-36.5 tmtj=586) RED CELL DISTRIBUTION WIDTH (BEAKER) (test 15.4 % 11.6-14.4 ridg=137) PLATELET COUNT (BEAKER) (test gjtu=683) 270 K/CU MM 150-450 MEAN PLATELET VOLUME (BEAKER) (test guoh=222) 9.5 fL 9.4-12.4 NUCLEATED RED BLOOD CELLS (BEAKER) (test 0 /100 WBC 0-0 eyrz=484) (CELLAVISION MANUAL DIFF)2019-07-07 09:44:00 Test Item Value Reference Range Comments NEUTROPHILS - REL (CELLAVISION)(BEAKER) (test 84 % fyhq=0635) LYMPHOCYTES - REL (CELLAVISION)(BEAKER) (test 4 % ahaz=6245) MONOCYTES - REL (CELLAVISION)(BEAKER) (test 9 % ayqq=4030) BANDS - REL (CELLAVISION)(BEAKER) (test 3 % 0-10 lucj=7924) NEUTROPHILS - ABS (CELLAVISION)(BEAKER) (test 23.52 K/ul 1.78-5.38 bigk=8569) LYMPHOCYTES - ABS (CELLAVISION)(BEAKER) (test 1.12 K/ul 1.32-3.57 tqza=4151) MONOCYTES - ABS (CELLAVISION)(BEAKER) (test 2.52 K/uL 0.30-0.82 mizt=7055) BANDS - ABS (CELLAVISION)(BEAKER) (test 0.84 K/uL 0.00-0.80 gbbg=7692) TOTAL COUNTED (BEAKER) (test upvz=2931) 100 WBC MORPHOLOGY (BEAKER) (test wrvk=547) Normal PLT MORPHOLOGY (BEAKER) (test mumq=863) Normal POIKILOCYTES (BEAKER) (test sutz=751) 1+ few ARTIFACT (CELLAVISION)(BEAKER) (test wizt=8047) Present PLATELET CONCENTRATION (CELLAVISION)(BEAKER) Adequate (test shnm=4450) Received comment: Check after transfusion completedUser comments: Slide comments :HEPATIC FUNCTION [id number] 07:43:00 Test Item Value Reference Range Comments TOTAL PROTEIN (BEAKER) (test zuqc=077) 4.6 gm/dL 6.0-8.3 ALBUMIN (BEAKER) (test aerr=3767) 2.2 g/dL 3.5-5.0 BILIRUBIN TOTAL (BEAKER) (test htfc=709) 0.7 mg/dL 0.2-1.2 BILIRUBIN DIRECT (BEAKER) (test pkaw=358) 0.4 mg/dL 0.1-0.5 ALKALINE PHOSPHATASE (BEAKER) (test ytmh=048) 53 U/L 40-150 AST (SGOT) (BEAKER) (test okat=447) 11 U/L 5-34 ALT (SGPT) (BEAKER) (test tyzb=809) 11 U/L 6-55 PROTHROMBIN [id number] 07:33:00 Test Item Value Reference Range Comments PROTIME (BEAKER) (test pjqc=329) 14.3 seconds 11.9-14.2 INR (BEAKER) (test zztd=914) 1.2 <=5.9 Effective 04/02/2019: PT Reference Range ChangeNew: 11.9-14.2 Previous: 11.7- 14.7RECOMMENDED COUMADIN/WARFARIN INR THERAPY RANGESSTANDARD DOSE: 2.0-3.0 Includes: PROPHYLAXIS for venous thrombosis, systemic embolization; TREATMENT for venous thrombosis and/or pulmonary embolus.HIGH RISK: Target INR is2.5-3.5 for patients wiht mechanical heart valves.VITAMIN B12 AND [id number] 07:27 :00 Test Item Value Reference Range Comments VITAMIN B12 (BEAKER) (test qkbx=498) 290 pg/mL 213-816 FOLATE (BEAKER) (test keed=265) 11.1 ng/mL >=7.0 POCT-GLUCOSE [id number] 06:09:00 Test Item Value Reference Range Comments POC-GLUCOSE METER (BEAKER) 89 mg/dL 70-[address] [facility] [address] [facility] (test nfuc=9470) [place] [address] RAD, CHEST, 1 VIEW, NON [id number] 04:21:00Reason for exam:-> leucocytosisShould this be performed [...] Value Reference Range Comments IRON (BEAKER) (test icwl=657) 72.0 ug/dL 40.0-160.0 TOTAL IRON BINDING CAPACITY (BEAKER) (test 94 ug/dL 250-450 vvll=344) IRON % SATURATION (2) (BEAKER) (test nwsp=5369) 77 % 20-55 URINALYSIS WITH MICROSCOPIC IF [id number] 01:48:00 Test Item Value Reference Range Comments COLOR (BEAKER) (test asdn=127) Light Yellow CLARITY (BEAKER) (test iqvy=490) Clear SPECIFIC GRAVITY UA (BEAKER) (test melh=884) 1.005 1.001-1.035 PH UA (BEAKER) (test vyip=750) 6.5 5.0-8.0 PROTEIN UA (BEAKER) (test rkna=489) Negative Negative GLUCOSE UA (BEAKER) (test bqvo=687) Negative Negative KETONES UA (BEAKER) (test olja=325) Negative Negative BILIRUBIN UA (BEAKER) (test ptll=185) Negative Negative BLOOD UA (BEAKER) (test aflz=086) Negative Negative NITRITE UA (BEAKER) (test gkam=113) Negative Negative LEUKOCYTE ESTERASE UA (BEAKER) (test xpyl=750) Negative Negative UROBILINOGEN UA (BEAKER) (test ddrt=337) 0.2 mg/dL 0.2-1.0 SOURCE(BEAKER) (test sutg=2276) [id number] 01:24:00 Test Item Value Reference Range Comments POC-HEMOGLOBIN (BEAKER) 5.4 g/dL 13.0-16.8 TESTED AT [address] (test szng=0783) [place] [address]TESTED AT [place] [address] POCT-BLOOD GASES, [id number] 01:23:00 Test Item Value Reference Range Comments TEMP, CELSIUS-POC (BEAKER) 36.1 (test diia=9071) FIO2-POC (BEAKER) (test 21 TESTED AT [address] cfgx=8304) [place] [address] PH, VENOUS-POC (BEAKER) 7.392 7.320-7.420 (test otyg=9196) PCO2, VENOUS-POC (BEAKER) 42.4 mm Hg 41.0-51.0 (test kkrj=7865) PO2, VENOUS-POC (BEAKER) 54.0 mm Hg 25.0-40.0 (test gcsm=0380) SO2, VENOUS-POC (BEAKER) 89.0 % 40.0-70.0 (test pfdu=5840) HCO3, VENOUS-POC (BEAKER) 26.0 meq/L 21.0-29.0 (test prpq=4348) BASE EXCESS, VENOUS-POC 1.0 meq/L -2.0-3.0 (BEAKER) (test nbwk=8747) [id number] 01:23:00 Test Item Value Reference Range Comments POC-SODIUM (BEAKER) (test 141 meq/L 135-148 TESTED AT [address] cnho=4894) [place] [address] [id number] 01:23:00 Test Item Value Reference Range Comments POC-POTASSIUM (BEAKER) (test 3.1 meq/L 3.6-5.5 TESTED AT [address] ouxh=7146) [place] [address] [id number] 01:23:00 Test Item Value Reference Range Comments POC-GLUCOSE (BEAKER) (test 100 mg/dL 70-110 TESTED AT [address] nnkp=5863) [place] [address] POCT-CALCIUM [id number] 01:23:00 Test Item Value Reference Range Comments POC-CALCIUM IONIZED (BEAKER) 1.13 mmol/L 1.12-1.27 TESTED AT [address] (test qefv=8870) [place] [id number] 01:23:00 Test Item Value Reference Range Comments POC-HEMATOCRIT (BEAKER) (test 16 % 40-50 TESTED AT [address] vouf=6764) [place] [address] C-REACTIVE [id number] 01:07:00 Test Item Value Reference Range Comments C-REACTIVE PROTEIN (BEAKER) (test ngoa=470) 7.02 mg/dL 0.00-0.50 LACTIC ACID, [id number] 01:05:00 Test Item Value Reference Range Comments LACTATE BLOOD VENOUS (2) (BEAKER) (test 1.4 mmol/L 0.5-2.2 xgaa=9707) POCT-GLUCOSE [id number] 01:02:00 Test Item Value Reference Range Comments POC-GLUCOSE METER (BEAKER) 125 mg/dL 70-110 TESTED AT [address] (test cmpm=7149) [place] [address] POCT-GLUCOSE [id number] 23:36:00 Test Item Value Reference Range Comments POC-GLUCOSE METER (BEAKER) 189 mg/dL 70-110 TESTED AT [address] (test rheq=4607) [place] [id number] (CELLAVISION MANUAL DIFF)2019-07-06 21:36:00 Test Item Value Reference Range Comments NEUTROPHILS - REL (CELLAVISION)(BEAKER) (test 93 % uheo=4033) LYMPHOCYTES - REL (CELLAVISION)(BEAKER) (test 4 % loua=1327) MONOCYTES - REL (CELLAVISION)(BEAKER) (test 2 % jttj=0630) BANDS - REL (CELLAVISION)(BEAKER) (test 1 % 0-10 dcxr=0788) NEUTROPHILS - ABS (CELLAVISION)(BEAKER) (test 29.85 K/ul 1.78-5.38 jfwh=5634) LYMPHOCYTES - ABS (CELLAVISION)(BEAKER) (test 1.28 K/ul 1.32-3.57 texu=7850) MONOCYTES - ABS (CELLAVISION)(BEAKER) (test 0.64 K/uL 0.30-0.82 ktwt=0937) BANDS - ABS (CELLAVISION)(BEAKER) (test 0.32 K/uL 0.00-0.80 bywh=4994) TOTAL COUNTED (BEAKER) (test kkdj=5821) 100 RBC MORPHOLOGY (BEAKER) (test zyns=382) Normal WBC MORPHOLOGY (BEAKER) (test eqfy=533) Normal PLT MORPHOLOGY (BEAKER) (test gdvg=754) Normal ARTIFACT (CELLAVISION)(BEAKER) (test jtce=0884) Present PLATELET CONCENTRATION (CELLAVISION)(BEAKER) Adequate (test jtym=5985) Received comment: User comments: Slide comments:BASIC METABOLIC [id number] 21:31:00 Test Item Value Reference Range Comments SODIUM (BEAKER) (test 137 meq/L 136-145 sdnc=661) POTASSIUM (BEAKER) (test 3.7 meq/L 3.5-5.1 bgbb=737) CHLORIDE (BEAKER) (test 108 meq/L 98-107 pwmr=963) CO2 (BEAKER) (test 25 meq/L 22-29 ovia=478) BLOOD UREA NITROGEN 6 mg/dL 7-21 (BEAKER) (test yeyq=969) CREATININE (BEAKER) (test 0.52 mg/dL 0.57-1.25 drgq=818) GLUCOSE RANDOM (BEAKER) 90 mg/dL 70-105 (test mnpg=475) CALCIUM (BEAKER) (test 7.3 mg/dL 8.4-10.2 imev=082) EGFR (BEAKER) (test 167 mL/min/1.73 sq m ESTIMATED GFR IS NOT wbvp=5691) ACCURATE CREATININE CLEARANCE IN PREDICTING GLOMERULAR FILTRATION RATE. ESTIMATED GFR IS NOT APPLICABLE FOR DIALYSIS PATIENTS. CBC W/PLT COUNT & AUTO [id number] 21:27:00 Test Item Value Reference Range Comments WHITE BLOOD CELL COUNT (BEAKER) (test xoyb=507) 32.1 K/ L 3.5-10.5 RED BLOOD CELL COUNT (BEAKER) (test bhse=530) 2.69 M/ L 4.63-6.08 HEMOGLOBIN (BEAKER) (test mqkq=101) 8.4 GM/DL 13.7-17.5 HEMATOCRIT (BEAKER) (test cril=022) 25.6 % 40.1-51.0 MEAN CORPUSCULAR VOLUME (BEAKER) (test xvge=903) 95.2 fL 79.0-92.2 MEAN CORPUSCULAR HEMOGLOBIN (BEAKER) (test 31.2 pg 25.7-32.2 beas=903) MEAN CORPUSCULAR HEMOGLOBIN CONC (BEAKER) (test 32.8 GM/DL 32.3-36.5 uydo=233) RED CELL DISTRIBUTION WIDTH (BEAKER) (test 15.8 % 11.6-14.4 yxpt=589) PLATELET COUNT (BEAKER) (test bfce=489) 276 K/CU MM 150-450 MEAN PLATELET VOLUME (BEAKER) (test yucp=032) 9.7 fL 9.4-12.4 NUCLEATED RED BLOOD CELLS (BEAKER) (test 0 /100 WBC 0-0 cjal=777) HEPATIC FUNCTION [id number] 21:26:00 Test Item Value Reference Range Comments TOTAL PROTEIN (BEAKER) (test seqh=250) 4.6 gm/dL 6.0-8.3 ALBUMIN (BEAKER) (test unfo=2018) 2.2 g/dL 3.5-5.0 BILIRUBIN TOTAL (BEAKER) (test dfaf=110) 0.7 mg/dL 0.2-1.2 BILIRUBIN DIRECT (BEAKER) (test uuer=586) 0.4 mg/dL 0.1-0.5 ALKALINE PHOSPHATASE (BEAKER) (test fwyi=180) 58 U/L 40-150 AST (SGOT) (BEAKER) (test obdv=722) 10 U/L 5-34 ALT (SGPT) (BEAKER) (test bvtm=052) 11 U/L 6-55 PROTHROMBIN [id number] 21:18:00 Test Item Value Reference Range Comments PROTIME (BEAKER) (test cqxy=408) 14.2 seconds 11.9-14.2 INR (BEAKER) (test ustm=997) 1.2 <=5.9 Effective 04/02/2019: PT Reference Range ChangeNew: 11.9-14.2 Previous: 11.7- 14.7RECOMMENDED COUMADIN/WARFARIN INR THERAPY RANGESSTANDARD DOSE: 2.0-3.0 Includes: PROPHYLAXIS for venous thrombosis, systemic embolization; TREATMENT for venous thrombosis and/or pulmonary embolus.HIGH RISK: Target INR is2.5-3.5 for patients wiht mechanical heart valves.
--- NOTE | 2019-12-18 11:46 | RAD REPORT ---
EXAM DESCRIPTION: US - Scrotum Testicles - 12/18/2019 11:33 am CLINICAL HISTORY: small mass left posterior, inferior scrotum COMPARISON: Scrotum Testicles dated 09/28/2017 FINDINGS: The right testicle 3.2 x 2.5 x 2.2 cm. No intratesticular masses or evidence of testicular torsion. The left testicle 3.9 x 2.3 x 1.8 cm. No intratesticular masses or evidence of testicular torsion. Both epididymides are normal in size and appearance. No pathologic fluid collections. IMPRESSION: Unremarkable study.
--- NOTE | 2019-12-18 12:17 | ER ---
Nurse's Notes [facility] [place] Name: Nabor Barrow Jr Age: 54 yrs Sex: Male : 1965 Arrival Date: 12/18/2019 Time: 09:49 Bed 20 Private MD: Dexter Bravo Diagnosis: Scrotal mass Presentation: 12/18 09:56 Presenting complaint: Patient states: LEFT TESTICLE LUMP x6 MONTHS. Transition of care: bp patient was not received from another setting of care. Onset of symptoms is unknown. Risk Assessment: Do you want to hurt yourself or someone else? Patient reports no desire to harm self or others. Initial Sepsis Screen: Does the patient meet any 2 criteria? No. Patient's initial sepsis screen is negative. Does the patient have a suspected source of infection? No. Patient's initial sepsis screen is negative. Care prior to arrival: None. 09:56 Method Of Arrival: Wheelchair bp 09:56 Acuity: INNA 4 bp Triage Assessment: 09:59 General: Appears in no apparent distress. comfortable, Behavior is cooperative, bp appropriate for age, anxious. Pain: Denies pain. EENT: No deficits noted. Neuro: No deficits noted. Cardiovascular: No deficits noted. Respiratory: No deficits noted. GI: No signs and/or symptoms were reported involving the gastrointestinal system. : No signs and/or symptoms were reported regarding the genitourinary system. Derm: No deficits noted. Musculoskeletal: No deficits noted. Historical: - Allergies: 09:59 Aspirin; bp 09:59 azathioprine sodium; bp 09:59 Demerol; bp 09:59 Imuran; bp 09:59 Lyrica; bp 09:59 NSAIDS (Non-Steroidal Anti-Inflamma; bp - Home Meds: 09:59 dilaudid 8 mg every 4 hours [Active]; Fentanyl Patch Topical [Active]; gabapentin 800 bp mg Oral tab 3 times per day [Active]; Nexium 40 mg oral cpDR 1 cap [Active]; Percocet 10-325 mg Oral tab 1 tab every 6 hours [Active]; Plavix 75 mg Oral tab 1 tab once daily [Active]; prednisone 5 mg Oral tab once daily [Active]; prednisone 5 mg Oral tab once daily [Active]; - PMHx: 09:59 Arthritis; Chronic pain; Hypertension; Kidney stones; psoriatic arthirits; stroke 2010; bp - Immunization history:: Adult Immunizations unknown. - Coronavirus screen:: The patient has NOT traveled to [place] in the past 14 days. Proceed with normal triage process as indicated. The patient has NOT had contact with known/suspected case of Coronavirus? Proceed with normal triage procedures. - Social history:: Smoking status: Patient denies any tobacco usage or history of. - Ebola Screening: : No symptoms or risks identified at this time. Screenin:01 Abuse screen: Denies threats or abuse. Denies injuries from another. Nutritional bp screening: No deficits noted. Tuberculosis screening: No symptoms or risk factors identified. Fall Risk None identified. Assessment: 10:01 General: SEE TRIAGE NOTE. bp 10:43 Reassessment: U/S PENDING. VS STABLE ON MONITOR. bp 11:08 Reassessment: PT TO U/S. bp 11:48 Reassessment: PT RETURNED FROM U/S. UOP PENDING. bp 12:53 Reassessment: PT D/C HOME VIA W/C, DX WITH SCROTAL MASS. bp Vital Signs: 10:00 BP 120 / 100; Pulse 97; Resp 16; Temp 98.4; Pulse Ox 93% ; Weight 71.67 kg; bp 10:43 BP 120 / 90; Pulse 77; Resp 16; Pulse Ox 95% ; bp 11:48 BP 115 / 80; Pulse 76; Resp 16; Pulse Ox 99% ; bp 12:53 BP 105 / 77; Pulse 84; Resp 79; Temp 98; Pulse Ox 98% ; bp ED Course: 09:49 Patient arrived in ED. ag5 09:49 Dexter Bravo DO is Private Physician. ag5 09:51 Rakan Escudero, WU is Primary Nurse. bp 09:56 Triage completed. bp 09:58 Tony Roberto MD is Attending Physician. kdr 10:00 Arm band placed on. bp 10:01 Patient has correct armband on for positive identification. Bed in low position. Call bp light in reach. Side rails up X2. 12:14 US Scrotum Testicles Sent. bp 12:15 Ngozi West MD is Referral Physician. kdr 12:54 No provider procedures requiring assistance completed. Patient did not have IV access bp during this emergency room visit. Administered Medications: No medications were administered Outcome: 12:16 Discharge ordered by . kdr 12:54 Discharged to home via wheelchair. bp 12:54 Condition: stable 12:54 Discharge instructions given to patient, Instructed on discharge instructions, follow up and referral plans. Demonstrated understanding of instructions, follow-up care. 12:55 Patient left the ED. bp Signatures: Tony Roberto MD MD kdr Raakn Escudero, RN RN bp Greg Ozuna ag5
--- NOTE | 2019-12-18 12:17 | EDPHYS ---
Physician Documentation [facility] Name: Nabor Barrow Jr Age: 54 yrs Sex: Male : 1965 Arrival Date: 12/18/2019 Time: 09:49 Bed 20 Private MD: Dexter Bravo ED Physician Tony Roberto HPI: 12/18 10:14 This 54 yrs old Male presents to ER via Wheelchair with complaints of kdr Testicular Lump. 10:14 The patient presents with swelling, that is mild, For the past six months, the patient kdr has noted a small (less than 1 cm nodule on his left posterior scrotum. He denies any associated s/s. He states that about one year ago, he injured his scrotum and had an US at that time - nothing found to be abnormal. He has no other c/o at this time. He is just worries about the source of the swelling. Onset: The symptoms/episode began/occurred gradually, 6 month(s) ago. Modifying factors: The symptoms are alleviated by nothing, the symptoms are aggravated by nothing. Associated signs and symptoms: The patient has no apparent associated signs or symptoms. Severity of symptoms: At their worst the symptoms were very mild, in the emergency department the symptoms are unchanged. The patient has not experienced similar symptoms in the past. The patient has not recently seen a physician. Historical: - Allergies: 09:59 Aspirin; bp 09:59 azathioprine sodium; bp 09:59 Demerol; bp 09:59 Imuran; bp 09:59 Lyrica; bp 09:59 NSAIDS (Non-Steroidal Anti-Inflamma; bp - Home Meds: 09:59 dilaudid 8 mg every 4 hours [Active]; Fentanyl Patch Topical [Active]; gabapentin 800 bp mg Oral tab 3 times per day [Active]; Nexium 40 mg oral cpDR 1 cap [Active]; Percocet 10-325 mg Oral tab 1 tab every 6 hours [Active]; Plavix 75 mg Oral tab 1 tab once daily [Active]; prednisone 5 mg Oral tab once daily [Active]; prednisone 5 mg Oral tab once daily [Active]; - PMHx: 09:59 Arthritis; Chronic pain; Hypertension; Kidney stones; psoriatic arthirits; stroke 2009; bp - Immunization history:: Adult Immunizations unknown. - Coronavirus screen:: The patient has NOT traveled to [place] in the past 14 days. Proceed with normal triage process as indicated. The patient has NOT had contact with known/suspected case of Coronavirus? Proceed with normal triage procedures. - Social history:: Smoking status: Patient denies any tobacco usage or history of. - Ebola Screening: : No symptoms or risks identified at this time. ROS: 10:14 Constitutional: Negative for fever, chills, and weight loss, Eyes: Negative for injury, kdr pain, redness, and discharge, ENT: Negative for injury, pain, and discharge, Neck: Negative for injury, pain, and swelling, Cardiovascular: Negative for chest pain, palpitations, and edema, Respiratory: Negative for shortness of breath, cough, wheezing, and pleuritic chest pain, Abdomen/GI: Negative for abdominal pain, nausea, vomiting, diarrhea, and constipation, Back: Negative for injury and pain, MS/Extremity: Negative for injury and deformity - excpet for left AKA Skin: Negative for injury, rash, and discoloration, Neuro: Negative for headache, weakness, numbness, tingling, and seizure activity. Psych: Negative for depression, anxiety, suicide ideation, homicidal ideation, and hallucinations, Allergy/Immunology: Negative for hives, rash, and allergies, Endocrine: Negative for neck swelling, polydipsia, polyuria, polyphagia, and marked weight changes, Hematologic/Lymphatic: Negative for swollen nodes, abnormal bleeding, and unusual bruising. 10:14 : Positive for small (< 1 cm ) nodule to left posterior scrotum, non-tender. Exam: 10:14 Constitutional: This is a well developed, well nourished patient who is awake, alert, kdr and in no acute distress. Head/Face: Normocephalic, atraumatic. Eyes: Pupils equal round and reactive to light, extra-ocular motions intact. Lids and lashes normal. Conjunctiva and sclera are non-icteric and not injected. Cornea within normal limits. Periorbital areas with no swelling, redness, or edema. Neck: Trachea midline, no thyromegaly or masses palpated, and no cervical lymphadenopathy. Supple, full range of motion without nuchal rigidity, or vertebral point tenderness. No Meningismus. Chest/axilla: Normal chest wall appearance and motion. Nontender with no deformity. No lesions are appreciated. Cardiovascular: Regular rate and rhythm with a normal S1 and S2. No gallops, murmurs, or rubs. Normal PMI, no JVD. No pulse deficits. Respiratory: Lungs have equal breath sounds bilaterally, clear to auscultation and percussion. No rales, rhonchi or wheezes noted. No increased work of breathing, no retractions or nasal flaring. Abdomen/GI: Soft, non-tender, with normal bowel sounds. No distension or tympany. No guarding or rebound. No evidence of tenderness throughout. Back: No spinal tenderness. No costovertebral tenderness. Full range of motion. Skin: Warm, dry with normal turgor. Normal color with no rashes, no lesions, and no evidence of cellulitis. Neuro: Awake and alert, GCS 15, oriented to person, place, time, and situation. Cranial nerves II-XII grossly intact. Motor strength 5/5 in all extremities. Sensory grossly intact. Cerebellar exam normal. Normal gait. Psych: Awake, alert, with orientation to person, place and time. Behavior, mood, and affect are within normal limits. 10:14 : Small nodule in scrotum as noted above. 10:14 Musculoskeletal/extremity: Left AKA. Vital Signs: 10:00 BP 120 / 100; Pulse 97; Resp 16; Temp 98.4; Pulse Ox 93% ; Weight 71.67 kg; bp 10:43 BP 120 / 90; Pulse 77; Resp 16; Pulse Ox 95% ; bp 11:48 BP 115 / 80; Pulse 76; Resp 16; Pulse Ox 99% ; bp 12:53 BP 105 / 77; Pulse 84; Resp 79; Temp 98; Pulse Ox 98% ; bp MDM: 12:16 Patient medically screened. kdr 14:22 Data reviewed: vital signs, nurses notes, lab test result(s), radiologic studies. kdr Counseling: I had a detailed discussion with the patient and/or guardian regarding: the historical points, exam findings, and any diagnostic results supporting the discharge/admit diagnosis, lab results, radiology results, the need for outpatient follow up. 12/18 12:19 Order name: Urine Dipstick--Ancillary (enter results) em 12/18 12:46 Order name: Urine Dipstick-Ancillary [facility] 12/18 10:22 Order name: Urine Dipstick-Ancillary (obtain specimen); Complete Time: 12:14 kdr 12/18 10:22 Order name: US Scrotum Testicles kdr 12/18 12:05 Order name: US; Complete Time: 12:06 EDMS Administered Medications: No medications were administered Disposition: 12/18/19 12:16 Discharged to Home. Impression: Scrotal mass. - Condition is Stable. - Discharge Instructions: Scrotal Masses. - Medication Reconciliation Form, Thank You Letter form. - Follow up: Ngozi West MD; When: 2 - 3 days; Reason: If symptoms return, Further diagnostic work-up, Recheck today's complaints, Continuance of care, Re-evaluation by your physician. - Problem is an ongoing problem. - Symptoms are unchanged. Signatures: Dispatcher [employer]CO Tony Roberto MD MD kdr Rakan Escudero, RN RN bp Corrections: (The following items were deleted from the chart) 12:55 12:16 12/18/2019 12:16 Discharged to Home. Impression: Scrotal mass. Condition is bp Stable. Forms are Medication Reconciliation Form, Thank You Letter, Antibiotic Education, Prescription Opioid Use. Follow up: Ngozi West; When: 2 - 3 days; Reason: If symptoms return, Further diagnostic work-up, Recheck today's complaints, Continuance of care, Re-evaluation by your physician. Problem is an ongoing problem. Symptoms are unchanged. kdr
[2019-12-18 12:45] LABS: Urine Blood TRACE (NEG); Urine Glucose NEGATIVE (NEG); Urine Protein NEGATIVE (NEG); Urine Specific Gravity 1.015 (1.005-1.030)
[2019-12-19 07:58] VITALS: BP 105/77; TEMP 98; O2SAT 98
== END 2019-12-18 12:55 | disposition home or self-care (01) ==
LOC: ER 09:47
DX: N50.89 Other specified disorders of the male genital organs (principal); I10 Essential (primary) hypertension; Z79.01 Long term (current) use of anticoagulants; Z88.5 Allergy status to narcotic agent; Z88.6 Allergy status to analgesic agent; Z88.8 Allergy status to other drugs, medicaments and biological substances
CPT/HCPCS: 76870; 81003; 99283

== ENCOUNTER 2020-02-04 16:41 | Emergency (ER) | payer OTHER ==
--- OUTSIDE RECORDS SUMMARY | 2020-02-04 16:49 | XMS REPORT ---
:1965 [facility] Address [address] [place] [address] [address] [place] [address] Care Team Providers Name Role Phone NALDO CLEMENT Unavailable Unavailable Problems This patient has no known problems. Allergies, Adverse Reactions, Alerts This patient has no known allergies or adverse reactions. Medications This patient has no known medications. Results Test Description Test Time Test Comments Text Results Atomic Results Result Comments BLOOD CULTURE 2019-07-18 08:01:00 Test Item Value Reference Range Comments CULTURE (BEAKER) (test acsu=1618) No growth in 5 days BLOOD [id number] 08:01:00 Test Item Value Reference Range Comments CULTURE (BEAKER) (test tgdz=7939) No growth in 5 days BASIC METABOLIC [id number] 06:08:00 Test Item Value Reference Range Comments SODIUM (BEAKER) (test 140 meq/L 136-145 kjge=045) POTASSIUM (BEAKER) (test 3.8 meq/L 3.5-5.1 yrea=570) CHLORIDE (BEAKER) (test 106 meq/L 98-107 ceyl=900) CO2 (BEAKER) (test 32 meq/L 22-29 ljjy=474) BLOOD UREA NITROGEN 13 mg/dL 7-21 (BEAKER) (test qiaz=996) CREATININE (BEAKER) (test 0.57 mg/dL 0.57-1.25 jofc=827) GLUCOSE RANDOM (BEAKER) 91 mg/dL 70-105 (test gcvt=538) CALCIUM (BEAKER) (test 7.6 mg/dL 8.4-10.2 puyh=584) EGFR (BEAKER) (test 150 mL/min/1.73 sq m ESTIMATED GFR IS NOT jxes=2457) ACCURATE CREATININE CLEARANCE IN PREDICTING GLOMERULAR FILTRATION RATE. ESTIMATED GFR IS NOT APPLICABLE FOR DIALYSIS PATIENTS. CBC W/PLT COUNT & AUTO [id number] 07:49:00 Test Item Value Reference Range Comments WHITE BLOOD CELL COUNT (BEAKER) (test ttib=993) 32.1 K/ L 3.5-10.5 RED BLOOD CELL COUNT (BEAKER) (test pbbu=159) 3.78 M/ L 4.63-6.08 HEMOGLOBIN (BEAKER) (test dylx=704) 10.5 GM/DL 13.7-17.5 HEMATOCRIT (BEAKER) (test iaqh=934) 35.3 % 40.1-51.0 MEAN CORPUSCULAR VOLUME (BEAKER) (test ejub=597) 93.4 fL 79.0-92.2 MEAN CORPUSCULAR HEMOGLOBIN (BEAKER) (test 27.8 pg 25.7-32.2 xznt=929) MEAN CORPUSCULAR HEMOGLOBIN CONC (BEAKER) (test 29.7 GM/DL 32.3-36.5 vrfq=274) RED CELL DISTRIBUTION WIDTH (BEAKER) (test 23.3 % 11.6-14.4 rlsr=082) PLATELET COUNT (BEAKER) (test cabx=331) 495 K/CU MM 150-450 MEAN PLATELET VOLUME (BEAKER) (test zmum=454) 9.8 fL 9.4-12.4 NUCLEATED RED BLOOD CELLS (BEAKER) (test 1 /100 WBC 0-0 ezho=759) (CELLAVISION MANUAL DIFF)2019-07-15 07:49:00 Test Item Value Reference Range Comments NEUTROPHILS - REL (CELLAVISION)(BEAKER) (test 88 % avjd=5371) LYMPHOCYTES - REL (CELLAVISION)(BEAKER) (test 5 % ymeq=7418) MONOCYTES - REL (CELLAVISION)(BEAKER) (test 4 % rowo=2911) EOSINOPHILS - REL (CELLAVISION)(BEAKER) (test 2 % nmca=9356) METAMYELOCYTES - REL (CELLAVISION)(BEAKER) (test 1 % 0-0 gerf=3680) NEUTROPHILS - ABS (CELLAVISION)(BEAKER) (test 28.25 K/ul 1.78-5.38 wjlu=8149) LYMPHOCYTES - ABS (CELLAVISION)(BEAKER) (test 1.61 K/ul 1.32-3.57 lyls=3428) MONOCYTES - ABS (CELLAVISION)(BEAKER) (test 1.28 K/uL 0.30-0.82 orvd=8336) EOSINOPHILS - ABS (CELLAVISION)(BEAKER) (test 0.64 K/uL 0.04-0.54 kelq=6590) METAMYELOCYTES - ABS (CELLAVISION)(BEAKER) (test 0.32 K/uL 0.00-0.00 hbbv=0836) TOTAL COUNTED (BEAKER) (test yndg=8580) 100 MANUAL NRBC PER 100 CELLS (BEAKER) (test 1 /100 WBC 0-0 bmzl=5202) WBC MORPHOLOGY (BEAKER) (test olen=438) Normal PLT MORPHOLOGY (BEAKER) (test tgyj=692) Normal POLYCHROMATOPHILLIC RBCS(BEAKER) (test fsgm=132) 2+ moderate HYPOCHROMIA (BEAKER) (test nrbi=670) 1+ few ANISOCYTOSIS (BEAKER) (test zjyy=245) 2+ moderate MACROCYTES (BEAKER) (test akko=072) 1+ few POIKILOCYTES (BEAKER) (test zpej=483) 1+ few OVALOCYTES (BEAKER) (test xxfi=298) 1+ few TEAR DROP CELLS (BEAKER) (test xdtc=436) 1+ few BASOPHILIC STIPPLING (BEAKER) (test amtz=977) Present ARTIFACT (CELLAVISION)(BEAKER) (test znny=6219) Present HELMET CELLS (CELLAVISION)(BEAKER) (test 1+ few wuwb=6965) PLATELET CONCENTRATION (CELLAVISION)(BEAKER) Increased (test uyqh=0417) Received comment: User comments: Slide comments:BASIC METABOLIC [id number] 05:04:00 Test Item Value Reference Range Comments SODIUM (BEAKER) (test 142 meq/L 136-145 ryar=611) POTASSIUM (BEAKER) (test 3.2 meq/L 3.5-5.1 shht=437) CHLORIDE (BEAKER) (test 105 meq/L 98-107 zsqb=944) CO2 (BEAKER) (test 32 meq/L 22-29 qqva=447) BLOOD UREA NITROGEN 11 mg/dL 7-21 (BEAKER) (test vecq=560) CREATININE (BEAKER) (test 0.60 mg/dL 0.57-1.25 davv=436) GLUCOSE RANDOM (BEAKER) 120 mg/dL 70-105 (test udnv=387) CALCIUM (BEAKER) (test 7.9 mg/dL 8.4-10.2 qkga=214) EGFR (BEAKER) (test 141 mL/min/1.73 sq m ESTIMATED GFR IS NOT fuba=3903) ACCURATE CREATININE CLEARANCE IN PREDICTING GLOMERULAR FILTRATION RATE. ESTIMATED GFR IS NOT APPLICABLE FOR DIALYSIS PATIENTS. CBC W/PLT COUNT & AUTO [id number] 09:25:00 Test Item Value Reference Range Comments WHITE BLOOD CELL COUNT (BEAKER) (test xxsn=599) 27.2 K/ L 3.5-10.5 RED BLOOD CELL COUNT (BEAKER) (test yntq=306) 3.06 M/ L 4.63-6.08 HEMOGLOBIN (BEAKER) (test tqnr=227) 9.0 GM/DL 13.7-17.5 HEMATOCRIT (BEAKER) (test ykfu=809) 28.8 % 40.1-51.0 MEAN CORPUSCULAR VOLUME (BEAKER) (test xsib=915) 94.1 fL 79.0-92.2 MEAN CORPUSCULAR HEMOGLOBIN (BEAKER) (test 29.4 pg 25.7-32.2 qvnu=146) MEAN CORPUSCULAR HEMOGLOBIN CONC (BEAKER) (test 31.3 GM/DL 32.3-36.5 peug=793) RED CELL DISTRIBUTION WIDTH (BEAKER) (test 23.3 % 11.6-14.4 zlvk=940) PLATELET COUNT (BEAKER) (test riuf=408) 422 K/CU MM 150-450 MEAN PLATELET VOLUME (BEAKER) (test rkae=547) 9.6 fL 9.4-12.4 NUCLEATED RED BLOOD CELLS (BEAKER) (test 1 /100 WBC 0-0 ozoz=861) (CELLAVISION MANUAL DIFF)2019-07-14 09:25:00 Test Item Value Reference Range Comments NEUTROPHILS - REL (CELLAVISION)(BEAKER) (test 83 % tmtd=0534) LYMPHOCYTES - REL (CELLAVISION)(BEAKER) (test 5 % zoea=3943) MONOCYTES - REL (CELLAVISION)(BEAKER) (test 9 % ppzr=8189) BANDS - REL (CELLAVISION)(BEAKER) (test 2 % 0-10 eqif=7403) ATYPICAL LYMPHOCYTES - REL (CELLAVISION)(BEAKER) 1 % 0-0 (test gwey=1579) NEUTROPHILS - ABS (CELLAVISION)(BEAKER) (test 22.58 K/ul 1.78-5.38 ksti=3558) LYMPHOCYTES - ABS (CELLAVISION)(BEAKER) (test 1.36 K/ul 1.32-3.57 sjwy=8254) MONOCYTES - ABS (CELLAVISION)(BEAKER) (test 2.45 K/uL 0.30-0.82 vqsj=8696) BANDS - ABS (CELLAVISION)(BEAKER) (test 0.54 K/uL 0.00-0.80 pdou=2063) ATYPICAL LYMPHOCYTES - ABS (CELLAVISION)(BEAKER) 0.27 K/uL 0.00-0.00 (test aepf=1251) TOTAL COUNTED (BEAKER) (test amso=5396) 100 WBC MORPHOLOGY (BEAKER) (test szfb=286) Normal GIANT PLATELETS (BEAKER) (test gbmx=503) Present LARGE PLT(BEAKER) (test gvfl=2729) Present POLYCHROMATOPHILLIC RBCS(BEAKER) (test chzd=661) 2+ moderate ANISOCYTOSIS (BEAKER) (test ahdz=141) 1+ few MACROCYTES (BEAKER) (test wber=577) 1+ few POIKILOCYTES (BEAKER) (test aevy=184) 1+ few ELLIPTOCYTES (BEAKER) (test wkal=248) 1+ few OVALOCYTES (BEAKER) (test gkxj=534) 1+ few TEAR DROP CELLS (BEAKER) (test bncx=554) 1+ few STOMATOCYTES (BEAKER) (test qorr=586) 1+ few ABRAN CELLS (BEAKER) (test sqvw=243) 1+ few BASOPHILIC STIPPLING (BEAKER) (test lrbo=906) Present ARTIFACT (CELLAVISION)(BEAKER) (test xegj=6971) Present PLATELET CONCENTRATION (CELLAVISION)(BEAKER) Adequate (test rnxl=2320) Received comment: User comments: Slide comments: WBC: SEGMENTED WITH TOXIC GRANULATIONS PRESENTBASIC METABOLIC [id number] 04:47:00 Test Item Value Reference Range Comments SODIUM (BEAKER) (test 142 meq/L 136-145 caaq=296) POTASSIUM (BEAKER) (test 3.5 meq/L 3.5-5.1 issz=119) CHLORIDE (BEAKER) (test 107 meq/L 98-107 tzcr=052) CO2 (BEAKER) (test 31 meq/L 22-29 oyws=514) BLOOD UREA NITROGEN 14 mg/dL 7-21 (BEAKER) (test duos=828) CREATININE (BEAKER) (test 0.62 mg/dL 0.57-1.25 vdgk=177) GLUCOSE RANDOM (BEAKER) 129 mg/dL 70-105 (test nuff=602) CALCIUM (BEAKER) (test 7.7 mg/dL 8.4-10.2 givk=861) EGFR (BEAKER) (test 136 mL/min/1.73 sq m ESTIMATED GFR IS NOT kvbw=7099) ACCURATE CREATININE CLEARANCE IN PREDICTING GLOMERULAR FILTRATION RATE. ESTIMATED GFR IS NOT APPLICABLE FOR DIALYSIS PATIENTS. URINALYSIS W/ REFLEX URINE [id number] 12:15:00 Test Item Value Reference Range Comments COLOR (BEAKER) (test hraj=115) Yellow CLARITY (BEAKER) (test zggc=250) Hazy SPECIFIC GRAVITY UA (BEAKER) (test rztf=717) 1.014 1.001-1.035 PH UA (BEAKER) (test uafv=355) 7.5 5.0-8.0 PROTEIN UA (BEAKER) (test cmjl=967) Negative Negative GLUCOSE UA (BEAKER) (test nnyw=042) Negative Negative KETONES UA (BEAKER) (test silz=944) Negative Negative BILIRUBIN UA (BEAKER) (test swzg=397) Negative Negative BLOOD UA (BEAKER) (test nnrx=590) Negative Negative NITRITE UA (BEAKER) (test mmgo=148) Negative Negative LEUKOCYTE ESTERASE UA (BEAKER) (test shik=033) Negative Negative UROBILINOGEN UA (BEAKER) (test rjla=228) 0.2 mg/dL 0.2-1.0 RBC UA (BEAKER) (test uoww=446) 1 /HPF WBC UA (BEAKER) (test cjme=620) 1 /HPF MUCUS (BEAKER) (test wyox=1635) Rare CALCIUM OXALATE CRYSTALS (BEAKER) (test itgz=430) Rare AMORPHOUS CRYSTALS (BEAKER) (test nzyc=0289) Rare SOURCE(BEAKER) (test wcjm=2636) CBC W/PLT COUNT & AUTO [id number] 08:39:00 Test Item Value Reference Range Comments WHITE BLOOD CELL COUNT (BEAKER) (test kfph=015) 31.9 K/ L 3.5-10.5 RED BLOOD CELL COUNT (BEAKER) (test uifg=762) 3.12 M/ L 4.63-6.08 HEMOGLOBIN (BEAKER) (test jzxf=874) 9.2 GM/DL 13.7-17.5 HEMATOCRIT (BEAKER) (test snlp=161) 29.7 % 40.1-51.0 MEAN CORPUSCULAR VOLUME (BEAKER) (test ysvo=083) 95.2 fL 79.0-92.2 MEAN CORPUSCULAR HEMOGLOBIN (BEAKER) (test 29.5 pg 25.7-32.2 bcqs=513) MEAN CORPUSCULAR HEMOGLOBIN CONC (BEAKER) (test 31.0 GM/DL 32.3-36.5 czvm=843) RED CELL DISTRIBUTION WIDTH (BEAKER) (test 23.9 % 11.6-14.4 aqjs=879) PLATELET COUNT (BEAKER) (test nlmo=519) 386 K/CU MM 150-450 MEAN PLATELET VOLUME (BEAKER) (test ukyf=278) 9.8 fL 9.4-12.4 NUCLEATED RED BLOOD CELLS (BEAKER) (test 1 /100 WBC 0-0 obhm=025) (CELLAVISION MANUAL DIFF)2019-07-13 08:39:00 Test Item Value Reference Range Comments NEUTROPHILS - REL (CELLAVISION)(BEAKER) (test 80 % jpuo=7028) LYMPHOCYTES - REL (CELLAVISION)(BEAKER) (test 7 % uokm=8853) MONOCYTES - REL (CELLAVISION)(BEAKER) (test 10 % xmch=6095) MYELOCYTES - REL (CELLAVISION)(BEAKER) (test 1 % 0-0 vqnx=0545) ATYPICAL LYMPHOCYTES - REL (CELLAVISION)(BEAKER) 2 % 0-0 (test xuja=2928) NEUTROPHILS - ABS (CELLAVISION)(BEAKER) (test 25.52 K/ul 1.78-5.38 lepd=3420) LYMPHOCYTES - ABS (CELLAVISION)(BEAKER) (test 2.23 K/ul 1.32-3.57 qozh=5374) MONOCYTES - ABS (CELLAVISION)(BEAKER) (test 3.19 K/uL 0.30-0.82 nzcp=4660) MYELOCYTES-ABS (CELLAVISION)(BEAKER) (test 0.32 K/uL 0.00-0.00 qovu=5286) ATYPICAL LYMPHOCYTES - ABS (CELLAVISION)(BEAKER) 0.64 K/uL 0.00-0.00 (test flzk=6244) TOTAL COUNTED (BEAKER) (test zxbr=9722) 100 WBC MORPHOLOGY (BEAKER) (test ylfb=787) Normal PLT MORPHOLOGY (BEAKER) (test rzkp=567) Normal ANISOCYTOSIS (BEAKER) (test llha=681) 1+ few POIKILOCYTES (BEAKER) (test qvha=342) 1+ few ARTIFACT (CELLAVISION)(BEAKER) (test njny=0760) Present PLATELET CONCENTRATION (CELLAVISION)(BEAKER) Adequate (test ioqd=5362) Received comment: User comments: Slide comments:BASIC METABOLIC [id number] 05:58:00 Test Item Value Reference Range Comments SODIUM (BEAKER) (test 142 meq/L 136-145 nxrp=662) POTASSIUM (BEAKER) (test 3.6 meq/L 3.5-5.1 vcam=859) CHLORIDE (BEAKER) (test 107 meq/L 98-107 lqrb=563) CO2 (BEAKER) (test 31 meq/L 22-29 kykl=893) BLOOD UREA NITROGEN 14 mg/dL 7-21 (BEAKER) (test otes=850) CREATININE (BEAKER) (test 0.58 mg/dL 0.57-1.25 vjan=587) GLUCOSE RANDOM (BEAKER) 113 mg/dL 70-105 (test yxnt=164) CALCIUM (BEAKER) (test 7.9 mg/dL 8.4-10.2 tspz=127) EGFR (BEAKER) (test 147 mL/min/1.73 sq m ESTIMATED GFR IS NOT qvat=2520) ACCURATE CREATININE CLEARANCE IN PREDICTING GLOMERULAR FILTRATION RATE. ESTIMATED GFR IS NOT APPLICABLE FOR DIALYSIS PATIENTS. RAD, HIP, 2 VIEWS, [id number] 01:46:00Reason for exam:->total hip arthoplasty with persistent [...] Verified Date/Time: 07/13/2019 01: 46:35 Reading Location: [address] Reading Room RAD, KNEE, 3 VIEWS, [id number] 01:45:00Reason for exam:->hardware with leukocytosisFINAL REPORT CLINICAL [...] Martinez Verified Date/Time: 07/13/2019 01:45:04 Reading Location: [address] Reading Room RAD, KNEE, 3 VIEWS, [id number] 01:43:00Reason for exam:->leukocytosisFINAL REPORT CLINICAL HISTORY: Leukocytosis [...] Martinez Verified Date/Time: 07/13/2019 01:43:49 Reading Location: [address] Reading Room RAD, CHEST, 1 VIEW, NON [id number] 01:42:00Reason for exam:->leukocytosisShould this be performed at [...] Martinez Verified Date/Time: 07/13/2019 01:42:05 Reading Location: [address] Reading Room Electronically signed by: SABRA MARTINEZ M.D. on 01:42 AMRAD, HIP, 2 VIEWS, [id number] 01:40:00Reason for exam:-> total hip arthoplasty with [...] MDReport Verified Date/Time: 2018 01:40:58 Reading Location: [address] Reading Room CBC W/PLT COUNT & AUTO [id number] 10:58:00 Test Item Value Reference Range Comments WHITE BLOOD CELL COUNT (BEAKER) (test embg=410) 30.9 K/ L 3.5-10.5 RED BLOOD CELL COUNT (BEAKER) (test bczd=252) 3.01 M/ L 4.63-6.08 HEMOGLOBIN (BEAKER) (test payj=502) 9.0 GM/DL 13.7-17.5 HEMATOCRIT (BEAKER) (test soeo=743) 28.0 % 40.1-51.0 MEAN CORPUSCULAR VOLUME (BEAKER) (test ihrd=725) 93.0 fL 79.0-92.2 MEAN CORPUSCULAR HEMOGLOBIN (BEAKER) (test 29.9 pg 25.7-32.2 exjk=871) MEAN CORPUSCULAR HEMOGLOBIN CONC (BEAKER) (test 32.1 GM/DL 32.3-36.5 xoje=394) RED CELL DISTRIBUTION WIDTH (BEAKER) (test 23.9 % 11.6-14.4 kebd=340) PLATELET COUNT (BEAKER) (test ysoc=789) 345 K/CU MM 150-450 MEAN PLATELET VOLUME (BEAKER) (test pise=038) 9.4 fL 9.4-12.4 NUCLEATED RED BLOOD CELLS (BEAKER) (test 1 /100 WBC 0-0 xylw=816) (CELLAVISION MANUAL DIFF)2019-07-12 10:58:00 Test Item Value Reference Range Comments NEUTROPHILS - REL (CELLAVISION)(BEAKER) (test 89 % oqcx=4625) LYMPHOCYTES - REL (CELLAVISION)(BEAKER) (test 2 % adxc=5103) MONOCYTES - REL (CELLAVISION)(BEAKER) (test 5 % kpol=5273) MYELOCYTES - REL (CELLAVISION)(BEAKER) (test 1 % 0-0 jjbu=6502) BANDS - REL (CELLAVISION)(BEAKER) (test 3 % 0-10 bcjo=6789) NEUTROPHILS - ABS (CELLAVISION)(BEAKER) (test 27.50 K/ul 1.78-5.38 ozpo=8620) LYMPHOCYTES - ABS (CELLAVISION)(BEAKER) (test 0.62 K/ul 1.32-3.57 tddx=1258) MONOCYTES - ABS (CELLAVISION)(BEAKER) (test 1.55 K/uL 0.30-0.82 iguw=0244) MYELOCYTES-ABS (CELLAVISION)(BEAKER) (test 0.31 K/uL 0.00-0.00 njty=5155) BANDS - ABS (CELLAVISION)(BEAKER) (test 0.93 K/uL 0.00-0.80 ybnv=3457) TOTAL COUNTED (BEAKER) (test mqgp=9193) 100 WBC MORPHOLOGY (BEAKER) (test rpcc=589) Normal GIANT PLATELETS (BEAKER) (test kvxg=970) Present LARGE PLT(BEAKER) (test gspq=4086) Present POLYCHROMATOPHILLIC RBCS(BEAKER) (test icfw=176) 2+ moderate HYPOCHROMIA (BEAKER) (test dcnw=767) 1+ few ANISOCYTOSIS (BEAKER) (test pwio=713) 2+ moderate MICROCYTES (BEAKER) (test uhvv=776) 1+ few MACROCYTES (BEAKER) (test jvem=961) 2+ moderate POIKILOCYTES (BEAKER) (test pnru=224) 1+ few ELLIPTOCYTES (BEAKER) (test redh=923) 1+ few OVALOCYTES (BEAKER) (test stcf=057) 1+ few ABRAN CELLS (BEAKER) (test txov=281) 1+ few BASOPHILIC STIPPLING (BEAKER) (test eyua=141) Present ARTIFACT (CELLAVISION)(BEAKER) (test aakd=9144) Present PLATELET CONCENTRATION (CELLAVISION)(BEAKER) Adequate (test vqpz=8383) Received comment: User comments: Slide comments:BLOOD [id number] 08:01:00 Test Item Value Reference Range Comments CULTURE (BEAKER) (test xcqv=6851) No growth in 5 days BLOOD [id number] 08:01:00 Test Item Value Reference Range Comments CULTURE (BEAKER) (test gxet=2891) No growth in 5 days BASIC METABOLIC [id number] 05:59:00 Test Item Value Reference Range Comments SODIUM (BEAKER) (test 143 meq/L 136-145 fzfd=402) POTASSIUM (BEAKER) (test 3.6 meq/L 3.5-5.1 iqbo=115) CHLORIDE (BEAKER) (test 110 meq/L 98-107 vehy=531) CO2 (BEAKER) (test 30 meq/L 22-29 iqpa=530) BLOOD UREA NITROGEN 11 mg/dL 7-21 (BEAKER) (test pqve=604) CREATININE (BEAKER) (test 0.62 mg/dL 0.57-1.25 caox=867) GLUCOSE RANDOM (BEAKER) 133 mg/dL 70-105 (test rsti=488) CALCIUM (BEAKER) (test 7.8 mg/dL 8.4-10.2 pjqi=481) EGFR (BEAKER) (test 136 mL/min/1.73 sq m ESTIMATED GFR IS NOT izxz=4810) ACCURATE CREATININE CLEARANCE IN PREDICTING GLOMERULAR FILTRATION RATE. ESTIMATED GFR IS NOT APPLICABLE FOR DIALYSIS PATIENTS. CBC W/PLT COUNT & AUTO [id number] 11:34:00 Test Item Value Reference Range Comments WHITE BLOOD CELL COUNT (BEAKER) (test mkif=539) 29.2 K/ L 3.5-10.5 RED BLOOD CELL COUNT (BEAKER) (test kngn=818) 3.17 M/ L 4.63-6.08 HEMOGLOBIN (BEAKER) (test yksk=042) 9.1 GM/DL 13.7-17.5 HEMATOCRIT (BEAKER) (test sbvf=664) 29.7 % 40.1-51.0 MEAN CORPUSCULAR VOLUME (BEAKER) (test vchy=597) 93.7 fL 79.0-92.2 MEAN CORPUSCULAR HEMOGLOBIN (BEAKER) (test 28.7 pg 25.7-32.2 qnfs=522) MEAN CORPUSCULAR HEMOGLOBIN CONC (BEAKER) (test 30.6 GM/DL 32.3-36.5 qcys=231) RED CELL DISTRIBUTION WIDTH (BEAKER) (test 23.7 % 11.6-14.4 gnli=490) PLATELET COUNT (BEAKER) (test kwcd=529) 297 K/CU MM 150-450 MEAN PLATELET VOLUME (BEAKER) (test oift=981) 10.5 fL 9.4-12.4 NUCLEATED RED BLOOD CELLS (BEAKER) (test 0 /100 WBC 0-0 juff=041) (CELLAVISION MANUAL DIFF)2019-07-11 11:34:00 Test Item Value Reference Range Comments NEUTROPHILS - REL (CELLAVISION)(BEAKER) (test 83 % vtla=8590) LYMPHOCYTES - REL (CELLAVISION)(BEAKER) (test 7 % hnhz=3947) MONOCYTES - REL (CELLAVISION)(BEAKER) (test 5 % vpea=8679) METAMYELOCYTES - REL (CELLAVISION)(BEAKER) (test 3 % 0-0 gsjy=2056) MYELOCYTES - REL (CELLAVISION)(BEAKER) (test 2 % 0-0 tsds=2668) NEUTROPHILS - ABS (CELLAVISION)(BEAKER) (test 24.24 K/ul 1.78-5.38 oord=6320) LYMPHOCYTES - ABS (CELLAVISION)(BEAKER) (test 2.04 K/ul 1.32-3.57 hgar=0512) MONOCYTES - ABS (CELLAVISION)(BEAKER) (test 1.46 K/uL 0.30-0.82 oslg=3608) METAMYELOCYTES - ABS (CELLAVISION)(BEAKER) (test 0.88 K/uL 0.00-0.00 vcyo=7372) MYELOCYTES-ABS (CELLAVISION)(BEAKER) (test 0.58 K/uL 0.00-0.00 uwpg=1895) TOTAL COUNTED (BEAKER) (test ezvt=4642) 100 WBC MORPHOLOGY (BEAKER) (test qpvd=129) Normal PLT MORPHOLOGY (BEAKER) (test kkht=260) Normal POLYCHROMATOPHILLIC RBCS(BEAKER) (test mtwa=530) 2+ moderate ANISOCYTOSIS (BEAKER) (test erje=944) 1+ few MACROCYTES (BEAKER) (test vujf=805) 1+ few POIKILOCYTES (BEAKER) (test wrgr=292) 3+ many ABRAN CELLS (BEAKER) (test fczw=602) 1+ few ARTIFACT (CELLAVISION)(BEAKER) (test eguw=5500) Present PLATELET CONCENTRATION (CELLAVISION)(BEAKER) Adequate (test bdsy=0504) Received comment: User comments: Slide comments:[id number] 06:55:00 Test Item Value Reference Range Comments PROCALCITONIN (BEAKER) (test prkl=6145) 0.61 ng/mL <0.05 SEPSIS RISK (ng/mL)Low: 0.05-0.50Intermediate: 0.51-2.00High: & gt;=2.01BASIC METABOLIC [id number] 06:43:00 Test Item Value Reference Range Comments SODIUM (BEAKER) (test 140 meq/L 136-145 epgj=296) POTASSIUM (BEAKER) (test 4.0 meq/L 3.5-5.1 bukk=725) CHLORIDE (BEAKER) (test 110 meq/L 98-107 omol=380) CO2 (BEAKER) (test 27 meq/L 22-29 hyjp=735) BLOOD UREA NITROGEN 8 mg/dL 7-21 (BEAKER) (test yorh=767) CREATININE (BEAKER) (test 0.60 mg/dL 0.57-1.25 doyg=829) GLUCOSE RANDOM (BEAKER) 135 mg/dL 70-105 (test xabo=864) CALCIUM (BEAKER) (test 7.7 mg/dL 8.4-10.2 cqtw=415) EGFR (BEAKER) (test 141 mL/min/1.73 sq m ESTIMATED GFR IS NOT ijrw=4441) ACCURATE CREATININE CLEARANCE IN PREDICTING GLOMERULAR FILTRATION RATE. ESTIMATED GFR IS NOT APPLICABLE FOR DIALYSIS PATIENTS. [id number] 06:36:00 Test Item Value Reference Range Comments MAGNESIUM (BEAKER) (test yvar=341) 2.0 mg/dL 1.6-2.6 [id number] 06:36:00 Test Item Value Reference Range Comments ALBUMIN (BEAKER) (test iiop=8946) 2.3 g/dL 3.5-5.0 CALCIUM, [id number] 05:32:00 Test Item Value Reference Range Comments CALCIUM IONIZED (BEAKER) (test jsil=399) 1.09 mmol/L 1.12-1.27 PH, BLOOD (BEAKER) (test ylnu=1055) 7.42 [id number] 13:34:00 Test Item Value Reference Range Comments POTASSIUM (BEAKER) (test npvm=398) 3.6 meq/L 3.5-5.1 HEMOGLOBIN AND [id number] 12:50:00 Test Item Value Reference Range Comments HEMOGLOBIN (BEAKER) (test cxct=227) 9.1 GM/DL 13.7-17.5 HEMATOCRIT (BEAKER) (test iuzg=290) 29.0 % 40.1-51.0 MRSA [id number] 11:38:00 Test Item Value Reference Range Comments CULTURE (BEAKER) (test bmvm=0287) No MRSA isolated POCT-GLUCOSE [id number] 06:38:00 Test Item Value Reference Range Comments POC-GLUCOSE METER (BEAKER) 134 mg/dL 70-110 TESTED AT [facility] [address] [place] [address] (test ofys=0989) [facility] [address] BASIC METABOLIC [id number] 05:06:00 Test Item Value Reference Range Comments SODIUM (BEAKER) (test 140 meq/L 136-145 vnfe=529) POTASSIUM (BEAKER) (test 3.5 meq/L 3.5-5.1 zbof=413) CHLORIDE (BEAKER) (test 111 meq/L 98-107 yfbs=753) CO2 (BEAKER) (test 28 meq/L 22-29 bycs=794) BLOOD UREA NITROGEN 6 mg/dL 7-21 (BEAKER) (test fvmt=421) CREATININE (BEAKER) (test 0.62 mg/dL 0.57-1.25 lioy=518) GLUCOSE RANDOM (BEAKER) 141 mg/dL 70-105 (test vgbi=924) CALCIUM (BEAKER) (test 7.4 mg/dL 8.4-10.2 ygfs=602) EGFR (BEAKER) (test 136 mL/min/1.73 sq m ESTIMATED GFR IS NOT guip=4141) ACCURATE CREATININE CLEARANCE IN PREDICTING GLOMERULAR FILTRATION RATE. ESTIMATED GFR IS NOT APPLICABLE FOR DIALYSIS PATIENTS. [id number] 05:02:00 Test Item Value Reference Range Comments MAGNESIUM (BEAKER) (test eaox=086) 2.0 mg/dL 1.6-2.6 CBC W/PLT COUNT & AUTO [id number] 04:53:00 Test Item Value Reference Range Comments WHITE BLOOD CELL COUNT (BEAKER) (test vvgu=741) 25.6 K/ L 3.5-10.5 RED BLOOD CELL COUNT (BEAKER) (test lrkk=625) 2.94 M/ L 4.63-6.08 HEMOGLOBIN (BEAKER) (test xcll=605) 8.4 GM/DL 13.7-17.5 HEMATOCRIT (BEAKER) (test acai=497) 26.7 % 40.1-51.0 MEAN CORPUSCULAR VOLUME (BEAKER) (test fpml=902) 90.8 fL 79.0-92.2 MEAN CORPUSCULAR HEMOGLOBIN (BEAKER) (test 28.6 pg 25.7-32.2 drig=897) MEAN CORPUSCULAR HEMOGLOBIN CONC (BEAKER) (test 31.5 GM/DL 32.3-36.5 gnnq=514) RED CELL DISTRIBUTION WIDTH (BEAKER) (test 22.5 % 11.6-14.4 evgx=185) PLATELET COUNT (BEAKER) (test nbed=003) 239 K/CU MM 150-450 MEAN PLATELET VOLUME (BEAKER) (test pucn=481) 10.0 fL 9.4-12.4 NUCLEATED RED BLOOD CELLS (BEAKER) (test 0 /100 WBC 0-0 tkcc=356) NEUTROPHILS RELATIVE PERCENT (BEAKER) (test 86 % ebgl=750) LYMPHOCYTES RELATIVE PERCENT (BEAKER) (test 5 % fvko=626) MONOCYTES RELATIVE PERCENT (BEAKER) (test 6 % hnco=688) EOSINOPHILS RELATIVE PERCENT (BEAKER) (test 0 % maqm=507) BASOPHILS RELATIVE PERCENT (BEAKER) (test 0 % vdjs=619) NEUTROPHILS ABSOLUTE COUNT (BEAKER) (test 21.92 K/ L 1.78-5.38 oxfo=754) LYMPHOCYTES ABSOLUTE COUNT (BEAKER) (test 1.14 K/ L 1.32-3.57 dcsd=497) MONOCYTES ABSOLUTE COUNT (BEAKER) (test 1.64 K/ L 0.30-0.82 mjxc=464) EOSINOPHILS ABSOLUTE COUNT (BEAKER) (test 0.01 K/ L 0.04-0.54 lqnj=205) BASOPHILS ABSOLUTE COUNT (BEAKER) (test 0.04 K/ L 0.01-0.08 pgzm=458) IMMATURE GRANULOCYTES-RELATIVE PERCENT (BEAKER) 3 % 0-1 (test crpa=9152) POCT-GLUCOSE [id number] 00:09:00 Test Item Value Reference Range Comments POC-GLUCOSE METER (BEAKER) 181 mg/dL 70-110 TESTED AT [address] (test rxzo=3475) [place] [address] POCT-GLUCOSE [id number] 19:24:00 Test Item Value Reference Range Comments POC-GLUCOSE METER (BEAKER) 121 mg/dL 70-110 TESTED AT [address] (test idfn=3487) [place] [address] LACTIC ACID, [id number] 16:46:00 Test Item Value Reference Range Comments LACTATE BLOOD VENOUS (2) (BEAKER) (test 1.9 mmol/L 0.5-2.2 xjcp=6987) HEMOGLOBIN AND [id number] 16:36:00 Test Item Value Reference Range Comments HEMOGLOBIN (BEAKER) (test hczs=544) 8.0 GM/DL 13.7-17.5 HEMATOCRIT (BEAKER) (test cssf=348) 24.5 % 40.1-51.0 CBC W/PLT COUNT & AUTO [id number] 16:02:00 Test Item Value Reference Range Comments WHITE BLOOD CELL COUNT (BEAKER) (test qbsg=692) 22.0 K/ L 3.5-10.5 RED BLOOD CELL COUNT (BEAKER) (test kqrz=856) 2.92 M/ L 4.63-6.08 HEMOGLOBIN (BEAKER) (test wlxi=854) 8.3 GM/DL 13.7-17.5 HEMATOCRIT (BEAKER) (test cefc=211) 26.4 % 40.1-51.0 MEAN CORPUSCULAR VOLUME (BEAKER) (test ckbw=142) 90.4 fL 79.0-92.2 MEAN CORPUSCULAR HEMOGLOBIN (BEAKER) (test 28.4 pg 25.7-32.2 ysmh=086) MEAN CORPUSCULAR HEMOGLOBIN CONC (BEAKER) (test 31.4 GM/DL 32.3-36.5 fldr=336) RED CELL DISTRIBUTION WIDTH (BEAKER) (test 22.1 % 11.6-14.4 kagl=723) PLATELET COUNT (BEAKER) (test fdja=294) 220 K/CU MM 150-450 MEAN PLATELET VOLUME (BEAKER) (test khju=857) 9.7 fL 9.4-12.4 NUCLEATED RED BLOOD CELLS (BEAKER) (test 0 /100 WBC 0-0 txes=689) NEUTROPHILS RELATIVE PERCENT (BEAKER) (test 88 % jbbr=482) LYMPHOCYTES RELATIVE PERCENT (BEAKER) (test 3 % deqd=308) MONOCYTES RELATIVE PERCENT (BEAKER) (test 5 % iqes=287) EOSINOPHILS RELATIVE PERCENT (BEAKER) (test 0 % unss=675) BASOPHILS RELATIVE PERCENT (BEAKER) (test 0 % rosm=801) NEUTROPHILS ABSOLUTE COUNT (BEAKER) (test 19.36 K/ L 1.78-5.38 xdsf=223) LYMPHOCYTES ABSOLUTE COUNT (BEAKER) (test 0.72 K/ L 1.32-3.57 qthj=030) MONOCYTES ABSOLUTE COUNT (BEAKER) (test 1.15 K/ L 0.30-0.82 dagk=141) EOSINOPHILS ABSOLUTE COUNT (BEAKER) (test 0.06 K/ L 0.04-0.54 odai=499) BASOPHILS ABSOLUTE COUNT (BEAKER) (test 0.04 K/ L 0.01-0.08 qndo=318) IMMATURE GRANULOCYTES-RELATIVE PERCENT (BEAKER) 3 % 0-1 (test unno=5552) BASIC METABOLIC [id number] 12:32:00 Test Item Value Reference Range Comments SODIUM (BEAKER) (test 139 meq/L 136-145 wquz=066) POTASSIUM (BEAKER) (test 3.8 meq/L 3.5-5.1 ntfu=846) CHLORIDE (BEAKER) (test 112 meq/L 98-107 hmij=320) CO2 (BEAKER) (test 24 meq/L 22-29 jqyp=748) BLOOD UREA NITROGEN 4 mg/dL 7-21 (BEAKER) (test kzqa=147) CREATININE (BEAKER) (test 0.64 mg/dL 0.57-1.25 hirm=210) GLUCOSE RANDOM (BEAKER) 131 mg/dL 70-105 (test pcmt=604) CALCIUM (BEAKER) (test 7.1 mg/dL 8.4-10.2 kglx=787) EGFR (BEAKER) (test 131 mL/min/1.73 sq m ESTIMATED GFR IS NOT biqn=1801) ACCURATE CREATININE CLEARANCE IN PREDICTING GLOMERULAR FILTRATION RATE. ESTIMATED GFR IS NOT APPLICABLE FOR DIALYSIS PATIENTS. POCT-GLUCOSE [id number] 12:08:00 Test Item Value Reference Range Comments POC-GLUCOSE METER (BEAKER) 175 mg/dL 70-110 TESTED AT [facility] [address] [facility] (test snct=3307) [facility] [address] HEMOGLOBIN AND [id number] 12:07:00 Test Item Value Reference Range Comments HEMOGLOBIN (BEAKER) (test jvzi=315) 8.5 GM/DL 13.7-17.5 HEMATOCRIT (BEAKER) (test lxyr=826) 26.4 % 40.1-51.0 [id number] 11:16:00 Test Item Value Reference Range Comments MAGNESIUM (BEAKER) (test xkub=775) 2.3 mg/dL 1.6-2.6 BASIC METABOLIC [id number] 10:18:00 Test Item Value Reference Range Comments SODIUM (BEAKER) (test 141 meq/L 136-145 xdte=263) POTASSIUM (BEAKER) (test 3.9 meq/L 3.5-5.1 ufkh=533) CHLORIDE (BEAKER) (test 113 meq/L 98-107 ifqg=746) CO2 (BEAKER) (test 26 meq/L 22-29 ynbu=365) BLOOD UREA NITROGEN 4 mg/dL 7-21 (BEAKER) (test mgvb=040) CREATININE (BEAKER) (test 0.67 mg/dL 0.57-1.25 azjd=946) GLUCOSE RANDOM (BEAKER) 93 mg/dL 70-105 (test dvhz=547) CALCIUM (BEAKER) (test 7.3 mg/dL 8.4-10.2 mwmp=326) EGFR (BEAKER) (test 125 mL/min/1.73 sq m ESTIMATED GFR IS NOT fauu=3336) ACCURATE CREATININE CLEARANCE IN PREDICTING GLOMERULAR FILTRATION RATE. ESTIMATED GFR IS NOT APPLICABLE FOR DIALYSIS PATIENTS. VANCOMYCIN LEVEL, [id number] 10:14:00 Test Item Value Reference Range Comments VANCOMYCIN TROUGH (BEAKER) (test imeg=178) 5.5 ug/mL 10.0-20.0 CBC (HEMOGRAM ONLY)2019-07-09 09:02:00 Test Item Value Reference Range Comments WHITE BLOOD CELL COUNT (BEAKER) (test jogh=915) 22.4 K/ L 3.5-10.5 RED BLOOD CELL COUNT (BEAKER) (test ptrh=599) 2.80 M/ L 4.63-6.08 HEMOGLOBIN (BEAKER) (test ipqk=873) 8.0 GM/DL 13.7-17.5 HEMATOCRIT (BEAKER) (test bjzs=114) 25.1 % 40.1-51.0 MEAN CORPUSCULAR VOLUME (BEAKER) (test aoba=372) 89.6 fL 79.0-92.2 MEAN CORPUSCULAR HEMOGLOBIN (BEAKER) (test 28.6 pg 25.7-32.2 tifd=385) MEAN CORPUSCULAR HEMOGLOBIN CONC (BEAKER) (test 31.9 GM/DL 32.3-36.5 tdqf=792) RED CELL DISTRIBUTION WIDTH (BEAKER) (test 21.8 % 11.6-14.4 yeng=172) PLATELET COUNT (BEAKER) (test bpap=100) 197 K/CU MM 150-450 MEAN PLATELET VOLUME (BEAKER) (test ummh=425) 9.7 fL 9.4-12.4 NUCLEATED RED BLOOD CELLS (BEAKER) (test 0 /100 WBC 0-0 pwbe=069) HEMOGLOBIN AND [id number] 08:10:00 Test Item Value Reference Range Comments HEMOGLOBIN (BEAKER) (test wikz=143) 7.9 GM/DL 13.7-17.5 HEMATOCRIT (BEAKER) (test ifyg=845) 24.3 % 40.1-51.0 POCT-GLUCOSE [id number] 05:56:00 Test Item Value Reference Range Comments POC-GLUCOSE METER (BEAKER) 113 mg/dL 70-110 TESTED AT [address] (test ddvb=2414) [facility] [address] BASIC METABOLIC [id number] 04:31:00 Test Item Value Reference Range Comments SODIUM (BEAKER) (test 141 meq/L 136-145 vlke=028) POTASSIUM (BEAKER) (test 3.3 meq/L 3.5-5.1 abrx=968) CHLORIDE (BEAKER) (test 112 meq/L 98-107 rjwh=655) CO2 (BEAKER) (test 27 meq/L 22-29 dlmz=081) BLOOD UREA NITROGEN 3 mg/dL 7-21 (BEAKER) (test dklu=855) CREATININE (BEAKER) (test 0.66 mg/dL 0.57-1.25 qxeo=726) GLUCOSE RANDOM (BEAKER) 107 mg/dL 70-105 (test zljx=694) CALCIUM (BEAKER) (test 6.9 mg/dL 8.4-10.2 ieit=196) EGFR (BEAKER) (test 127 mL/min/1.73 sq m ESTIMATED GFR IS NOT wges=6345) ACCURATE CREATININE CLEARANCE IN PREDICTING GLOMERULAR FILTRATION RATE. ESTIMATED GFR IS NOT APPLICABLE FOR DIALYSIS PATIENTS. [id number] 04:21:00 Test Item Value Reference Range Comments MAGNESIUM (BEAKER) (test ykvi=062) 2.2 mg/dL 1.6-2.6 CBC W/PLT COUNT & AUTO [id number] 04:07:00 Test Item Value Reference Range Comments WHITE BLOOD CELL COUNT (BEAKER) (test ttmz=781) 22.9 K/ L 3.5-10.5 RED BLOOD CELL COUNT (BEAKER) (test tlrn=091) 3.04 M/ L 4.63-6.08 HEMOGLOBIN (BEAKER) (test cwrm=551) 8.7 GM/DL 13.7-17.5 HEMATOCRIT (BEAKER) (test rtux=264) 26.6 % 40.1-51.0 MEAN CORPUSCULAR VOLUME (BEAKER) (test wuzg=954) 87.5 fL 79.0-92.2 MEAN CORPUSCULAR HEMOGLOBIN (BEAKER) (test 28.6 pg 25.7-32.2 btgm=127) MEAN CORPUSCULAR HEMOGLOBIN CONC (BEAKER) (test 32.7 GM/DL 32.3-36.5 qtsg=390) RED CELL DISTRIBUTION WIDTH (BEAKER) (test 21.5 % 11.6-14.4 wtyg=850) PLATELET COUNT (BEAKER) (test ymzc=884) 199 K/CU MM 150-450 MEAN PLATELET VOLUME (BEAKER) (test sdlo=249) 9.4 fL 9.4-12.4 NUCLEATED RED BLOOD CELLS (BEAKER) (test 0 /100 WBC 0-0 pagl=990) NEUTROPHILS RELATIVE PERCENT (BEAKER) (test 86 % rvxw=664) LYMPHOCYTES RELATIVE PERCENT (BEAKER) (test 5 % jbxt=676) MONOCYTES RELATIVE PERCENT (BEAKER) (test 6 % btrb=895) EOSINOPHILS RELATIVE PERCENT (BEAKER) (test 0 % nwwo=835) BASOPHILS RELATIVE PERCENT (BEAKER) (test 0 % hdrr=977) NEUTROPHILS ABSOLUTE COUNT (BEAKER) (test 19.52 K/ L 1.78-5.38 qvig=016) LYMPHOCYTES ABSOLUTE COUNT (BEAKER) (test 1.05 K/ L 1.32-3.57 grxn=897) MONOCYTES ABSOLUTE COUNT (BEAKER) (test 1.47 K/ L 0.30-0.82 eahx=675) EOSINOPHILS ABSOLUTE COUNT (BEAKER) (test 0.03 K/ L 0.04-0.54 boej=534) BASOPHILS ABSOLUTE COUNT (BEAKER) (test 0.04 K/ L 0.01-0.08 unlk=179) IMMATURE GRANULOCYTES-RELATIVE PERCENT (BEAKER) 3 % 0-1 (test fexk=9007) CALCIUM, [id number] 04:00:00 Test Item Value Reference Range Comments CALCIUM IONIZED (BEAKER) (test rzoc=125) 1.04 mmol/L 1.12-1.27 PH, BLOOD (BEAKER) (test mfiu=4523) 7.40 HEMOGLOBIN AND [id number] 00:26:00 Test Item Value Reference Range Comments HEMOGLOBIN (BEAKER) (test glcx=110) 7.6 GM/DL 13.7-17.5 HEMATOCRIT (BEAKER) (test dszm=852) 23.0 % 40.1-51.0 POCT-GLUCOSE [id number] 00:20:00 Test Item Value Reference Range Comments POC-GLUCOSE METER (BEAKER) 117 mg/dL 70-110 TESTED AT [facility] [address] [facility] (test lyfr=8833) [facility] [address] CT, [id number] 19:35:00FINAL REPORT TECHNIQUE: CT of the abdomen [...] [place] Verified Date/Time: 07/08/2019 19:35:04 Reading Location: [facility] C013Y CT Body Reading Room POCT- GLUCOSE [id number] 17:58:00 Test Item Value Reference Range Comments POC-GLUCOSE METER (BEAKER) 121 mg/dL 70-110 TESTED AT [address] (test zosx=0513) [place] [address] HEMOGLOBIN AND [id number] 16:32:00 Test Item Value Reference Range Comments HEMOGLOBIN (BEAKER) (test vjpn=162) 7.5 GM/DL 13.7-17.5 HEMATOCRIT (BEAKER) (test cdfd=258) 22.9 % 40.1-51.0 POCT-GLUCOSE [id number] 12:03:00 Test Item Value Reference Range Comments POC-GLUCOSE METER (BEAKER) 93 mg/dL 70-110 TESTED AT [address] (test bjfs=9476) [place] [address] BASIC METABOLIC [id number] 10:27:00 Test Item Value Reference Range Comments SODIUM (BEAKER) (test 138 meq/L 136-145 wiec=603) POTASSIUM (BEAKER) (test 3.5 meq/L 3.5-5.1 xypf=241) CHLORIDE (BEAKER) (test 113 meq/L 98-107 xctl=424) CO2 (BEAKER) (test 23 meq/L 22-29 dtyg=320) BLOOD UREA NITROGEN 3 mg/dL 7-21 (BEAKER) (test ncnb=493) CREATININE (BEAKER) (test 0.59 mg/dL 0.57-1.25 ugff=611) GLUCOSE RANDOM (BEAKER) 115 mg/dL 70-105 (test yjxg=308) CALCIUM (BEAKER) (test 7.0 mg/dL 8.4-10.2 fjoe=590) EGFR (BEAKER) (test 144 mL/min/1.73 sq m ESTIMATED GFR IS NOT zadl=0014) ACCURATE CREATININE CLEARANCE IN PREDICTING GLOMERULAR FILTRATION RATE. ESTIMATED GFR IS NOT APPLICABLE FOR DIALYSIS PATIENTS. [id number] 10:16:00 Test Item Value Reference Range Comments MAGNESIUM (BEAKER) (test qwgl=152) 1.4 mg/dL 1.6-2.6 CALCIUM, [id number] 09:50:00 Test Item Value Reference Range Comments CALCIUM IONIZED (BEAKER) (test ftma=278) 1.06 mmol/L 1.12-1.27 PH, BLOOD (BEAKER) (test hjsz=4754) 7.47 CBC W/PLT COUNT & AUTO [id number] 09:11:00 Test Item Value Reference Range Comments WHITE BLOOD CELL COUNT (BEAKER) (test gyvc=545) 31.6 K/ L 3.5-10.5 RED BLOOD CELL COUNT (BEAKER) (test lvnh=764) 2.90 M/ L 4.63-6.08 HEMOGLOBIN (BEAKER) (test ydmb=858) 8.1 GM/DL 13.7-17.5 HEMATOCRIT (BEAKER) (test igwp=524) 25.1 % 40.1-51.0 MEAN CORPUSCULAR VOLUME (BEAKER) (test jyen=427) 86.6 fL 79.0-92.2 MEAN CORPUSCULAR HEMOGLOBIN (BEAKER) (test 27.9 pg 25.7-32.2 snko=926) MEAN CORPUSCULAR HEMOGLOBIN CONC (BEAKER) (test 32.3 GM/DL 32.3-36.5 vbye=346) RED CELL DISTRIBUTION WIDTH (BEAKER) (test 20.0 % 11.6-14.4 host=111) PLATELET COUNT (BEAKER) (test blmi=782) 138 K/CU MM 150-450 MEAN PLATELET VOLUME (BEAKER) (test kucn=387) 9.8 fL 9.4-12.4 NUCLEATED RED BLOOD CELLS (BEAKER) (test 0 /100 WBC 0-0 jjld=403) (CELLAVISION MANUAL DIFF)2019-07-08 09:11:00 Test Item Value Reference Range Comments NEUTROPHILS - REL (CELLAVISION)(BEAKER) (test 98 % lygs=0168) MONOCYTES - REL (CELLAVISION)(BEAKER) (test 1 % ordy=0171) METAMYELOCYTES - REL (CELLAVISION)(BEAKER) (test 1 % 0-0 hcbn=5430) NEUTROPHILS - ABS (CELLAVISION)(BEAKER) (test 30.97 K/ul 1.78-5.38 qyxa=0522) MONOCYTES - ABS (CELLAVISION)(BEAKER) (test 0.32 K/uL 0.30-0.82 mdou=5475) METAMYELOCYTES - ABS (CELLAVISION)(BEAKER) (test 0.32 K/uL 0.00-0.00 igzc=4919) TOTAL COUNTED (BEAKER) (test xcbw=5585) 100 WBC MORPHOLOGY (BEAKER) (test zflq=654) Normal PLT MORPHOLOGY (BEAKER) (test ctgq=316) Normal POLYCHROMATOPHILLIC RBCS(BEAKER) (test bgov=039) 1+ few ANISOCYTOSIS (BEAKER) (test pegu=828) 1+ few BASOPHILIC STIPPLING (BEAKER) (test fewx=416) Present ARTIFACT (CELLAVISION)(BEAKER) (test xqtb=9729) Present PLATELET CONCENTRATION (CELLAVISION)(BEAKER) Decreased (test poph=9913) Received comment: User comments: Slide comments:POCT-GLUCOSE [id number] 06: 28:00 Test Item Value Reference Range Comments POC-GLUCOSE METER (BEAKER) 108 mg/dL 70-110 TESTED AT [address] (test ijai=0646) [place] [id number] POCT-GLUCOSE [id number] 05:09:00 Test Item Value Reference Range Comments POC-GLUCOSE METER (BEAKER) 82 mg/dL 70-110 TESTED AT [address] (test iqgc=6642) [facility] [address] [id number] 04:07:00 Test Item Value Reference Range Comments FERRITIN (BEAKER) (test dnbt=612) 154 ng/mL 5-275 BASIC METABOLIC [id number] 03:53:00 Test Item Value Reference Range Comments SODIUM (BEAKER) (test 141 meq/L 136-145 btsc=296) POTASSIUM (BEAKER) (test 3.4 meq/L 3.5-5.1 xhob=800) CHLORIDE (BEAKER) (test 113 meq/L 98-107 reia=957) CO2 (BEAKER) (test 24 meq/L 22-29 upqx=770) BLOOD UREA NITROGEN 3 mg/dL 7-21 (BEAKER) (test zyfb=200) CREATININE (BEAKER) (test 0.57 mg/dL 0.57-1.25 prst=577) GLUCOSE RANDOM (BEAKER) 96 mg/dL 70-105 (test uuik=726) CALCIUM (BEAKER) (test 7.2 mg/dL 8.4-10.2 llhm=115) EGFR (BEAKER) (test 150 mL/min/1.73 sq m ESTIMATED GFR IS NOT yveu=4893) ACCURATE CREATININE CLEARANCE IN PREDICTING GLOMERULAR FILTRATION RATE. ESTIMATED GFR IS NOT APPLICABLE FOR DIALYSIS PATIENTS. HEPATIC FUNCTION [id number] 03:51:00 Test Item Value Reference Range Comments TOTAL PROTEIN (BEAKER) (test tgrt=816) 3.6 gm/dL 6.0-8.3 ALBUMIN (BEAKER) (test nmvz=9947) 2.0 g/dL 3.5-5.0 BILIRUBIN TOTAL (BEAKER) (test cxmy=387) 0.9 mg/dL 0.2-1.2 BILIRUBIN DIRECT (BEAKER) (test kcux=480) 0.5 mg/dL 0.1-0.5 ALKALINE PHOSPHATASE (BEAKER) (test rprl=148) 42 U/L 40-150 AST (SGOT) (BEAKER) (test mtgw=949) 11 U/L 5-34 ALT (SGPT) (BEAKER) (test wuvc=466) 9 U/L 6-55 LACTIC ACID, [id number] 03:48:00 Test Item Value Reference Range Comments LACTATE BLOOD ARTERIAL (2) (BEAKER) (test 0.8 mmol/L 0.5-2.2 hlsm=2629) PROTHROMBIN TIME/[id number] 03:43:00 Test Item Value Reference Range Comments PROTIME (BEAKER) (test dibc=541) 16.4 seconds 11.9-14.2 INR (BEAKER) (test ykpb=399) 1.4 <=5.9 Effective 04/02/2019: PT Reference Range ChangeNew: 11.9-14.2 Previous: 11.7- 14.7RECOMMENDED COUMADIN/WARFARIN INR THERAPY RANGESSTANDARD DOSE: 2.0-3.0 Includes: PROPHYLAXIS for venous thrombosis, systemic embolization; TREATMENT for venous thrombosis and/or pulmonary embolus.HIGH RISK: Target INR is2.5-3.5 for patients wiht mechanical heart valves.HEMOGLOBIN AND [id number] 03 :32:00 Test Item Value Reference Range Comments HEMOGLOBIN (BEAKER) (test iyuh=955) 8.1 GM/DL 13.7-17.5 HEMATOCRIT (BEAKER) (test sadx=697) 24.3 % 40.1-51.0 HEMOGLOBIN AND [id number] 22:53:00 Test Item Value Reference Range Comments HEMOGLOBIN (BEAKER) (test lsxh=738) 7.9 GM/DL 13.7-17.5 HEMATOCRIT (BEAKER) (test pbid=027) 23.8 % 40.1-51.0 [id number] 19:45:00 Test Item Value Reference Range Comments PROTIME (BEAKER) (test xwij=986) 16.5 seconds 11.9-14.2 INR (BEAKER) (test mcgn=821) 1.4 <=5.9 PARTIAL THROMBOPLASTIN TIME (BEAKER) (test 30.9 seconds 22.5-36.0 xalk=276) Effective 04/02/2019: PT Reference Range ChangeNew: 11.9-14.2 Previous: 11.7- 14.7RECOMMENDED COUMADIN/WARFARIN INR THERAPY RANGESSTANDARD DOSE: 2.0-3.0 Includes: PROPHYLAXIS for venous thrombosis, systemic embolization; TREATMENT for venous thrombosis and/or pulmonary embolus.HIGH RISK: Target INR is2.5-3.5 for patients wiht mechanical heart valves.POCT-GLUCOSE [id number] 19:33:00 Test Item Value Reference Range Comments POC-GLUCOSE METER (BEAKER) 101 mg/dL 70-110 TESTED AT [facility] [address] [facility] (test gkvp=1409) [facility] [address] CALCIUM, [id number] 18:17:00 Test Item Value Reference Range Comments CALCIUM IONIZED (BEAKER) (test wnpy=921) 1.08 mmol/L 1.12-1.27 PH, BLOOD (BEAKER) (test geou=2919) 7.37 BLOOD GAS, [id number] 18:15:00 Test Item Value Reference Range Comments PH ARTERIAL (BEAKER) (test yoeu=922) 7.37 7.35-7.45 PCO2 ARTERIAL (BEAKER) (test sqln=547) 36 mmHg 35-45 PO2 ARTERIAL (BEAKER) (test dupe=283) 149 mmHg 80-90 O2 SATURATION ARTERIAL (BEAKER) (test sdfz=990) 98.9 % 96.0-97.0 HCO3 ARTERIAL (BEAKER) (test alze=147) 20 mmol/L 21-29 BASE EXCESS ARTERIAL (BEAKER) (test qqat=416) -4.5 mmol/L -2.0-3.0 PATIENT TEMPERATURE (BEAKER) (test mqso=2437) 37.0 C FIO2 (BEAKER) (test fgzn=8885) 100.0 % POTASSIUM-STAT [id number] 18:15:00 Test Item Value Reference Range Comments POTASSIUM (BEAKER) (test iqxy=756) 3.3 meq/L 3.6-5.5 GLUCOSE-STAT [id number] 18:15:00 Test Item Value Reference Range Comments GLUCOSE RANDOM (BEAKER) (test tydi=888) 138 mg/dL 70-110 HGB/HCT (H&H) - STAT [id number] 18:15:00 Test Item Value Reference Range Comments HEMOGLOBIN (BEAKER) (test mrls=234) 8.7 g/dL 13.0-16.8 HEMATOCRIT (BEAKER) (test bdty=530) 26.0 % 40.0-50.0 SODIUM NA-STAT [id number] 18:13:00 Test Item Value Reference Range Comments SODIUM (BEAKER) (test numi=760) 137 meq/L 135-148 LACTIC ACID, [id number] 16:40:00 Test Item Value Reference Range Comments LACTATE BLOOD ARTERIAL (2) (BEAKER) (test 1.4 mmol/L 0.5-2.2 oxzz=6285) HEMOGLOBIN AND [id number] 16:24:00 Test Item Value Reference Range Comments HEMOGLOBIN (BEAKER) (test gzoz=293) 7.5 GM/DL 13.7-17.5 HEMATOCRIT (BEAKER) (test dskp=981) 22.6 % 40.1-51.0 HGB/HCT (H&H) - STAT [id number] 15:47:00 Test Item Value Reference Range Comments HEMOGLOBIN (BEAKER) (test hdnl=062) 9.1 g/dL 13.0-16.8 HEMATOCRIT (BEAKER) (test epfl=363) 27.0 % 40.0-50.0 BLOOD GAS, [id number] 12:36:00 Test Item Value Reference Range Comments PH ARTERIAL (BEAKER) (test yokc=268) 7.40 7.35-7.45 PCO2 ARTERIAL (BEAKER) (test llow=517) 45 mmHg 35-45 PO2 ARTERIAL (BEAKER) (test doxo=830) 34 mmHg 80-90 O2 SATURATION ARTERIAL (BEAKER) (test gcji=427) 67.7 % 96.0-97.0 HCO3 ARTERIAL (BEAKER) (test bkxj=082) 27 mmol/L 21-29 BASE EXCESS ARTERIAL (BEAKER) (test cwcf=247) 1.6 mmol/L -2.0-3.0 PATIENT TEMPERATURE (BEAKER) (test fnvu=7469) 36.0 C FIO2 (BEAKER) (test siil=7873) 21.0 % [id number] 12:32:00 Test Item Value Reference Range Comments MAGNESIUM (BEAKER) (test 1.7 mg/dL 1.6-2.6 Specimen slightly hemolyzed cmma=625) POTASSIUM-STAT [id number] 12:31:00 Test Item Value Reference Range Comments POTASSIUM (BEAKER) (test zjqc=099) 3.2 meq/L 3.6-5.5 HGB/HCT (H&H) - STAT [id number] 12:31:00 Test Item Value Reference Range Comments HEMOGLOBIN (BEAKER) (test fedd=917) 9.7 g/dL 13.0-16.8 HEMATOCRIT (BEAKER) (test ycbx=061) 29.0 % 40.0-50.0 GLUCOSE-STAT [id number] 12:29:00 Test Item Value Reference Range Comments GLUCOSE RANDOM (BEAKER) (test xtpo=267) 100 mg/dL 70-110 SODIUM NA-STAT [id number] 12:29:00 Test Item Value Reference Range Comments SODIUM (BEAKER) (test vbkb=716) 136 meq/L 135-148 POCT-GLUCOSE [id number] 11:50:00 Test Item Value Reference Range Comments POC-GLUCOSE METER (BEAKER) 88 mg/dL 70-110 TESTED AT [facility] [address] [facility] (test haik=3223) [facility] [address] BASIC METABOLIC [id number] 09:48:00 Test Item Value Reference Range Comments SODIUM (BEAKER) (test 139 meq/L 136-145 wmna=126) POTASSIUM (BEAKER) (test 3.6 meq/L 3.5-5.1 vddw=063) CHLORIDE (BEAKER) (test 110 meq/L 98-107 nvrc=035) CO2 (BEAKER) (test 26 meq/L 22-29 dcnc=014) BLOOD UREA NITROGEN 4 mg/dL 7-21 (BEAKER) (test dysv=466) CREATININE (BEAKER) (test 0.55 mg/dL 0.57-1.25 yyap=644) GLUCOSE RANDOM (BEAKER) 103 mg/dL 70-105 (test hndu=622) CALCIUM (BEAKER) (test 7.1 mg/dL 8.4-10.2 vlpt=113) EGFR (BEAKER) (test 156 mL/min/1.73 sq m ESTIMATED GFR IS NOT pnqb=7447) ACCURATE CREATININE CLEARANCE IN PREDICTING GLOMERULAR FILTRATION RATE. ESTIMATED GFR IS NOT APPLICABLE FOR DIALYSIS PATIENTS. CBC W/PLT COUNT & AUTO [id number] 09:44:00 Test Item Value Reference Range Comments WHITE BLOOD CELL COUNT (BEAKER) (test qtqn=149) 28.0 K/ L 3.5-10.5 RED BLOOD CELL COUNT (BEAKER) (test sqyd=736) 3.18 M/ L 4.63-6.08 HEMOGLOBIN (BEAKER) (test tjtt=030) 10.0 GM/DL 13.7-17.5 HEMATOCRIT (BEAKER) (test jcuk=994) 30.1 % 40.1-51.0 MEAN CORPUSCULAR VOLUME (BEAKER) (test fhvn=907) 94.7 fL 79.0-92.2 MEAN CORPUSCULAR HEMOGLOBIN (BEAKER) (test 31.4 pg 25.7-32.2 yjxe=427) MEAN CORPUSCULAR HEMOGLOBIN CONC (BEAKER) (test 33.2 GM/DL 32.3-36.5 gynw=900) RED CELL DISTRIBUTION WIDTH (BEAKER) (test 15.4 % 11.6-14.4 eaub=696) PLATELET COUNT (BEAKER) (test pymh=855) 270 K/CU MM 150-450 MEAN PLATELET VOLUME (BEAKER) (test jfqd=090) 9.5 fL 9.4-12.4 NUCLEATED RED BLOOD CELLS (BEAKER) (test 0 /100 WBC 0-0 pxen=398) (CELLAVISION MANUAL DIFF)2019-07-07 09:44:00 Test Item Value Reference Range Comments NEUTROPHILS - REL (CELLAVISION)(BEAKER) (test 84 % rbnq=6847) LYMPHOCYTES - REL (CELLAVISION)(BEAKER) (test 4 % kegr=0023) MONOCYTES - REL (CELLAVISION)(BEAKER) (test 9 % ebsm=5738) BANDS - REL (CELLAVISION)(BEAKER) (test 3 % 0-10 biwt=7723) NEUTROPHILS - ABS (CELLAVISION)(BEAKER) (test 23.52 K/ul 1.78-5.38 wkay=7434) LYMPHOCYTES - ABS (CELLAVISION)(BEAKER) (test 1.12 K/ul 1.32-3.57 bakj=0924) MONOCYTES - ABS (CELLAVISION)(BEAKER) (test 2.52 K/uL 0.30-0.82 gzht=7268) BANDS - ABS (CELLAVISION)(BEAKER) (test 0.84 K/uL 0.00-0.80 zvwo=0581) TOTAL COUNTED (BEAKER) (test uvgh=8926) 100 WBC MORPHOLOGY (BEAKER) (test bafy=462) Normal PLT MORPHOLOGY (BEAKER) (test rbae=178) Normal POIKILOCYTES (BEAKER) (test gazh=083) 1+ few ARTIFACT (CELLAVISION)(BEAKER) (test lpop=3636) Present PLATELET CONCENTRATION (CELLAVISION)(BEAKER) Adequate (test wxer=6854) Received comment: Check after transfusion completedUser comments: Slide comments :HEPATIC FUNCTION [id number] 07:43:00 Test Item Value Reference Range Comments TOTAL PROTEIN (BEAKER) (test vddj=329) 4.6 gm/dL 6.0-8.3 ALBUMIN (BEAKER) (test iibh=7699) 2.2 g/dL 3.5-5.0 BILIRUBIN TOTAL (BEAKER) (test mwtw=630) 0.7 mg/dL 0.2-1.2 BILIRUBIN DIRECT (BEAKER) (test qijw=358) 0.4 mg/dL 0.1-0.5 ALKALINE PHOSPHATASE (BEAKER) (test hjmv=578) 53 U/L 40-150 AST (SGOT) (BEAKER) (test giob=767) 11 U/L 5-34 ALT (SGPT) (BEAKER) (test uvtd=801) 11 U/L 6-55 PROTHROMBIN [id number] 07:33:00 Test Item Value Reference Range Comments PROTIME (BEAKER) (test rtve=236) 14.3 seconds 11.9-14.2 INR (BEAKER) (test phss=412) 1.2 <=5.9 Effective 04/02/2019: PT Reference Range ChangeNew: 11.9-14.2 Previous: 11.7- 14.7RECOMMENDED COUMADIN/WARFARIN INR THERAPY RANGESSTANDARD DOSE: 2.0-3.0 Includes: PROPHYLAXIS for venous thrombosis, systemic embolization; TREATMENT for venous thrombosis and/or pulmonary embolus.HIGH RISK: Target INR is2.5-3.5 for patients wiht mechanical heart valves.VITAMIN B12 AND [id number] 07:27 :00 Test Item Value Reference Range Comments VITAMIN B12 (BEAKER) (test euvm=331) 290 pg/mL 213-816 FOLATE (BEAKER) (test kwup=686) 11.1 ng/mL >=7.0 POCT-GLUCOSE [id number] 06:09:00 Test Item Value Reference Range Comments POC-GLUCOSE METER (BEAKER) 89 mg/dL 70-110 TESTED AT [facility] [address] [facility] (test bzcu=5837) [place] [address] RAD, CHEST, 1 VIEW, NON [id number] 04:21:00Reason for exam:-> leucocytosisShould this be performed [...] Value Reference Range Comments IRON (BEAKER) (test nndd=633) 72.0 ug/dL 40.0-160.0 TOTAL IRON BINDING CAPACITY (BEAKER) (test 94 ug/dL 250-450 cprw=408) IRON % SATURATION (2) (BEAKER) (test awbk=9819) 77 % 20-55 URINALYSIS WITH MICROSCOPIC IF [id number] 01:48:00 Test Item Value Reference Range Comments COLOR (BEAKER) (test idps=787) Light Yellow CLARITY (BEAKER) (test oezw=188) Clear SPECIFIC GRAVITY UA (BEAKER) (test srkn=468) 1.005 1.001-1.035 PH UA (BEAKER) (test ptxe=085) 6.5 5.0-8.0 PROTEIN UA (BEAKER) (test obmu=365) Negative Negative GLUCOSE UA (BEAKER) (test jajg=973) Negative Negative KETONES UA (BEAKER) (test bsmt=500) Negative Negative BILIRUBIN UA (BEAKER) (test ojev=915) Negative Negative BLOOD UA (BEAKER) (test hkzh=167) Negative Negative NITRITE UA (BEAKER) (test lfpf=990) Negative Negative LEUKOCYTE ESTERASE UA (BEAKER) (test ojxu=049) Negative Negative UROBILINOGEN UA (BEAKER) (test niue=685) 0.2 mg/dL 0.2-1.0 SOURCE(BEAKER) (test jldc=1764) [id number] 01:24:00 Test Item Value Reference Range Comments POC-HEMOGLOBIN (BEAKER) 5.4 g/dL 13.0-16.8 TESTED AT [address] (test imra=9179) [place] [address]TESTED AT [place] [address] POCT-BLOOD GASES, [id number] 01:23:00 Test Item Value Reference Range Comments TEMP, CELSIUS-POC (BEAKER) 36.1 (test ndgf=8308) FIO2-POC (BEAKER) (test 21 TESTED AT [address] ifzj=7892) [place] [address] PH, VENOUS-POC (BEAKER) 7.392 7.320-7.420 (test vkqe=5227) PCO2, VENOUS-POC (BEAKER) 42.4 mm Hg 41.0-51.0 (test svat=4016) PO2, VENOUS-POC (BEAKER) 54.0 mm Hg 25.0-40.0 (test bwtx=3728) SO2, VENOUS-POC (BEAKER) 89.0 % 40.0-70.0 (test nfic=0585) HCO3, VENOUS-POC (BEAKER) 26.0 meq/L 21.0-29.0 (test hmua=0688) BASE EXCESS, VENOUS-POC 1.0 meq/L -2.0-3.0 (BEAKER) (test mzys=1349) [id number] 01:23:00 Test Item Value Reference Range Comments POC-SODIUM (BEAKER) (test 141 meq/L 135-148 TESTED AT [address] xgna=9491) [place] [address] [id number] 01:23:00 Test Item Value Reference Range Comments POC-POTASSIUM (BEAKER) (test 3.1 meq/L 3.6-5.5 TESTED AT [address] paxj=7405) [place] [address] [id number] 01:23:00 Test Item Value Reference Range Comments POC-GLUCOSE (BEAKER) (test 100 mg/dL 70-110 TESTED AT [address] feht=2096) [place] [address] POCT-CALCIUM [id number] 01:23:00 Test Item Value Reference Range Comments POC-CALCIUM IONIZED (BEAKER) 1.13 mmol/L 1.12-1.27 TESTED AT [address] (test clrj=8910) [place] [id number] 01:23:00 Test Item Value Reference Range Comments POC-HEMATOCRIT (BEAKER) (test 16 % 40-50 TESTED AT [address] rxhg=5717) [place] [address] C-REACTIVE [id number] 01:07:00 Test Item Value Reference Range Comments C-REACTIVE PROTEIN (BEAKER) (test jijr=420) 7.02 mg/dL 0.00-0.50 LACTIC ACID, [id number] 01:05:00 Test Item Value Reference Range Comments LACTATE BLOOD VENOUS (2) (BEAKER) (test 1.4 mmol/L 0.5-2.2 ynuj=2506) POCT-GLUCOSE [id number] 01:02:00 Test Item Value Reference Range Comments POC-GLUCOSE METER (BEAKER) 125 mg/dL 70-110 TESTED AT [address] (test qgwm=6612) [place] [address] POCT-GLUCOSE [id number] 23:36:00 Test Item Value Reference Range Comments POC-GLUCOSE METER (BEAKER) 189 mg/dL 70-110 TESTED AT [address] (test sfya=4954) [place] [id number] (CELLAVISION MANUAL DIFF)2019-07-06 21:36:00 Test Item Value Reference Range Comments NEUTROPHILS - REL (CELLAVISION)(BEAKER) (test 93 % tpfp=2738) LYMPHOCYTES - REL (CELLAVISION)(BEAKER) (test 4 % ejcb=9411) MONOCYTES - REL (CELLAVISION)(BEAKER) (test 2 % jxly=6525) BANDS - REL (CELLAVISION)(BEAKER) (test 1 % 0-10 zxip=8411) NEUTROPHILS - ABS (CELLAVISION)(BEAKER) (test 29.85 K/ul 1.78-5.38 xtmy=9970) LYMPHOCYTES - ABS (CELLAVISION)(BEAKER) (test 1.28 K/ul 1.32-3.57 zkhh=0870) MONOCYTES - ABS (CELLAVISION)(BEAKER) (test 0.64 K/uL 0.30-0.82 hisc=3532) BANDS - ABS (CELLAVISION)(BEAKER) (test 0.32 K/uL 0.00-0.80 eoqw=3308) TOTAL COUNTED (BEAKER) (test xbhh=1370) 100 RBC MORPHOLOGY (BEAKER) (test abfz=714) Normal WBC MORPHOLOGY (BEAKER) (test gadi=006) Normal PLT MORPHOLOGY (BEAKER) (test umfz=840) Normal ARTIFACT (CELLAVISION)(BEAKER) (test yfit=1519) Present PLATELET CONCENTRATION (CELLAVISION)(BEAKER) Adequate (test ikgu=6735) Received comment: User comments: Slide comments:BASIC METABOLIC [id number] 21:31:00 Test Item Value Reference Range Comments SODIUM (BEAKER) (test 137 meq/L 136-145 yvhb=215) POTASSIUM (BEAKER) (test 3.7 meq/L 3.5-5.1 sqhz=275) CHLORIDE (BEAKER) (test 108 meq/L 98-107 hjjd=507) CO2 (BEAKER) (test 25 meq/L 22-29 lrom=780) BLOOD UREA NITROGEN 6 mg/dL 7-21 (BEAKER) (test lwcc=309) CREATININE (BEAKER) (test 0.52 mg/dL 0.57-1.25 qqzq=087) GLUCOSE RANDOM (BEAKER) 90 mg/dL 70-105 (test qjxp=843) CALCIUM (BEAKER) (test 7.3 mg/dL 8.4-10.2 goky=260) EGFR (BEAKER) (test 167 mL/min/1.73 sq m ESTIMATED GFR IS NOT fsdy=3338) ACCURATE CREATININE CLEARANCE IN PREDICTING GLOMERULAR FILTRATION RATE. ESTIMATED GFR IS NOT APPLICABLE FOR DIALYSIS PATIENTS. CBC W/PLT COUNT & AUTO [id number] 21:27:00 Test Item Value Reference Range Comments WHITE BLOOD CELL COUNT (BEAKER) (test ydwo=686) 32.1 K/ L 3.5-10.5 RED BLOOD CELL COUNT (BEAKER) (test ktbo=067) 2.69 M/ L 4.63-6.08 HEMOGLOBIN (BEAKER) (test nvnu=832) 8.4 GM/DL 13.7-17.5 HEMATOCRIT (BEAKER) (test tiuo=752) 25.6 % 40.1-51.0 MEAN CORPUSCULAR VOLUME (BEAKER) (test oxfz=750) 95.2 fL 79.0-92.2 MEAN CORPUSCULAR HEMOGLOBIN (BEAKER) (test 31.2 pg 25.7-32.2 ryne=185) MEAN CORPUSCULAR HEMOGLOBIN CONC (BEAKER) (test 32.8 GM/DL 32.3-36.5 liki=275) RED CELL DISTRIBUTION WIDTH (BEAKER) (test 15.8 % 11.6-14.4 pztw=874) PLATELET COUNT (BEAKER) (test qkzl=452) 276 K/CU MM 150-450 MEAN PLATELET VOLUME (BEAKER) (test aglp=435) 9.7 fL 9.4-12.4 NUCLEATED RED BLOOD CELLS (BEAKER) (test 0 /100 WBC 0-0 unen=255) HEPATIC FUNCTION [id number] 21:26:00 Test Item Value Reference Range Comments TOTAL PROTEIN (BEAKER) (test kvom=330) 4.6 gm/dL 6.0-8.3 ALBUMIN (BEAKER) (test kuas=7960) 2.2 g/dL 3.5-5.0 BILIRUBIN TOTAL (BEAKER) (test sihx=605) 0.7 mg/dL 0.2-1.2 BILIRUBIN DIRECT (BEAKER) (test bjpm=231) 0.4 mg/dL 0.1-0.5 ALKALINE PHOSPHATASE (BEAKER) (test frps=076) 58 U/L 40-150 AST (SGOT) (BEAKER) (test nico=200) 10 U/L 5-34 ALT (SGPT) (BEAKER) (test htsp=809) 11 U/L 6-55 PROTHROMBIN [id number] 21:18:00 Test Item Value Reference Range Comments PROTIME (BEAKER) (test widt=613) 14.2 seconds 11.9-14.2 INR (BEAKER) (test ybyq=421) 1.2 <=5.9 Effective 04/02/2019: PT Reference Range ChangeNew: 11.9-14.2 Previous: 11.7- 14.7RECOMMENDED COUMADIN/WARFARIN INR THERAPY RANGESSTANDARD DOSE: 2.0-3.0 Includes: PROPHYLAXIS for venous thrombosis, systemic embolization; TREATMENT for venous thrombosis and/or pulmonary embolus.HIGH RISK: Target INR is2.5-3.5 for patients wiht mechanical heart valves.
[2020-02-04] MEDS ORDERED: NA CHLORIDE 0.9% 2,000 ML ONE (17:14)
[2020-02-04] MEDS ORDERED: ACETAMINOPHEN 500 MG TAB ONE (17:23)
[2020-02-04 17:55] LABS: Absolute Lymphocytes (CBC) 1.2 K/uL (0.7-4.9); Basophils % 0.4 % (0-1.3); Hematocrit 49.3 % (39.6-49.0); Lymphocytes % 4.2 % (15.3-44.8); MPV 8.1 fL (7.6-11.3); RBC Red Blood Cell Count 5.02 M/uL (4.33-5.43)
[2020-02-04 17:57] LABS: Protime INR 1.07
[2020-02-04] MEDS ORDERED: VANCOMYCIN/NS 1 gm 1 GM/250 ML BAG IVPB ONE (18:00)
[2020-02-04] MEDS ORDERED: ONDANSETRON 4 MG/2 ML VIAL ONE (18:01)
[2020-02-04] MEDS ORDERED: FENTANYL CITR 100 MCG/2 ML ONE (18:01)
[2020-02-04 18:08] LABS: ALT/SGPT 33 U/L (12-78); AST/SGOT 20 U/L (15-37); Albumin 2.6 g/dL (3.4-5.0); Alkaline Phosphatase 103 U/L (45-117); BUN Blood Urea Nitrogen 11 mg/dL (7-18); Bicarbonate 28 mmol/L (21-32); Bilirubin Direct 0.2 mg/dL (0-0.2); Bilirubin Total 0.5 mg/dL (0.2-1.0); Creatine Phosphokinase 46 U/L (39-308); Glucose Level 105 mg/dL (74-106); Lipase 96 U/L (73-393); Potassium 3.8 mmol/L (3.5-5.1); Protein, Total 7.6 g/dL (6.4-8.2); Sodium Level 140 mmol/L (136-145); Troponin (Emerg Dept Use Only) < 0.02 ng/mL (0.0-0.045)
--- NOTE | 2020-02-04 18:10 | RAD REPORT ---
EXAM DESCRIPTION: Spring Single View02/04/2020 5:50 pm CLINICAL HISTORY: fever COMPARISON: 09/2019 FINDINGS: The lungs appear clear of acute infiltrate. The heart is mildly enlarged. Old rib fractures are noted IMPRESSION: No acute abnormalities displayed
--- NOTE | 2020-02-04 18:19 | RAD REPORT ---
EXAM DESCRIPTION: RAD - Tib Fib Right - 02/04/2020 5:50 pm CLINICAL HISTORY: Right leg pain FINDINGS: Right knee arthroplasty has been performed. Prosthesis is in good position without looseni ng. A lucency is present within the anterior aspect of the proximal tibia. This presumably represents an acute fracture. Fracture fragments by 8 millimeters. The bones are osteoporotic
[2020-02-04 18:45] LABS: Blood Morphology Comment NOT SEEN (NOT SEEN); Platelet Estimate INCR
[2020-02-04 19:09] LABS: Urine Bacteria <20 /HPF (NONE SEEN)
[2020-02-04 19:10] LABS: Urine Culture Reflex Order REFLEXED
--- NOTE | 2020-02-04 19:38 | EDPHYS ---
Physician Documentation [facility] Name: Nabor Barrow Jr Age: 55 yrs Sex: Male : 1965 Arrival Date: 02/04/2020 Time: 16:44 Bed 20 Private MD: ED Physician Checo Reddy HPI: 02/03 17:39 This 55 yrs old Male presents to ER via Ambulatory with complaints of jr8 Syncope/Leg Injury. 17:39 The patient has experienced syncope, collapsed. Onset: The symptoms/episode jr8 began/occurred acutely, just prior to arrival, today. Duration: This was a single episode, that lasted an unknown period of time. Context: occurred at home. Associated injury: Right lower extremity: right knee, decreased range of motion, pain, swelling, tenderness. Associated signs and symptoms: The patient has no apparent associated signs or symptoms. Current symptoms: headache. The patient has experienced similar episodes in the past, a few times. The patient has not recently seen a physician. Patient stated that he has had syncopal episodes in past. Secondary to iron deficient anemia undetermined cause. Seeing Dr. Montalvo with heme/onc.. Stated that today he passed out. Now has head pain and leg pain. Stated that he can no longer bend right knee. Patient found to be febrile upon arrival with tachycardia . Historical: - Allergies: 16:52 Aspirin; aa5 16:52 azathioprine sodium; aa5 16:52 Imuran; aa5 16:52 Lyrica; aa5 16:52 NSAIDS (Non-Steroidal Anti-Inflamma; aa5 - PMHx: 16:52 Arthritis; Chronic pain; Hypertension; Kidney stones; psoriatic arthirits; stroke 2009; aa5 - PSHx: 16:52 L BKA; aa5 - Immunization history:: Adult Immunizations up to date. - Social history:: Smoking status: Patient denies any tobacco usage or history of. ROS: 17:46 Eyes: Negative for injury, pain, redness, and discharge, ENT: Negative for injury, jr8 pain, and discharge, Neck: Negative for injury, pain, and swelling, Cardiovascular: Negative for chest pain, palpitations, and edema, Respiratory: Negative for shortness of breath, cough, wheezing, and pleuritic chest pain, Abdomen/GI: Negative for abdominal pain, nausea, vomiting, diarrhea, and constipation, Back: Negative for injury and pain, Skin: Negative for injury, rash, and discoloration. 17:46 MS/extremity: Positive for decreased range of motion, ecchymosis, pain, swelling, tenderness, of the right knee. 17:46 Neuro: Positive for headache, syncope. Exam: 17:46 Eyes: Pupils equal round and reactive to light, extra-ocular motions intact. Lids and jr8 lashes normal. Conjunctiva and sclera are non-icteric and not injected. Cornea within normal limits. Periorbital areas with no swelling, redness, or edema. ENT: Nares patent. No nasal discharge, no septal abnormalities noted. Tympanic membranes are normal and external auditory canals are clear. Oropharynx with no redness, swelling, or masses, exudates, or evidence of obstruction, uvula midline. Mucous membranes moist. Neck: Trachea midline, no thyromegaly or masses palpated, and no cervical lymphadenopathy. Supple, full range of motion without nuchal rigidity, or vertebral point tenderness. No Meningismus. Chest/axilla: Normal chest wall appearance and motion. Nontender with no deformity. No lesions are appreciated. Respiratory: Lungs have equal breath sounds bilaterally, clear to auscultation and percussion. No rales, rhonchi or wheezes noted. No increased work of breathing, no retractions or nasal flaring. Abdomen/GI: Soft, non-tender, with normal bowel sounds. No distension or tympany. No guarding or rebound. No evidence of tenderness throughout. Back: No spinal tenderness. No costovertebral tenderness. Full range of motion. Neuro: Awake and alert, GCS 15, oriented to person, place, time, and situation. Cranial nerves II-XII grossly intact. Motor strength 5/5 in all extremities. Sensory grossly intact. 17:46 Head/face: Noted is tenderness, that is mild, of the right side of the back of head. 17:46 Cardiovascular: Rate: tachycardic, Rhythm: regular, Pulses: Pulses are 2+ in right radial artery and left radial artery. Heart sounds: normal, normal S1and S2, no S3 or S4, no murmur, no rub, no gallop, Edema: 2+ edema to level of right midcalf, right ankle and right foot, JVD: is not appreciated. 17:46 Musculoskeletal/extremity: Extremities: grossly normal except: noted in the right leg: Patient has swelling, tenderness, and bruising to lateral right leg at the most proximal fibular region. Lower leg with mild swelling, erythema, and vesicular like lesions present , noted in the Left BKA present : Circulation is intact in all extremities. Sensation intact. 17:50 ECG was reviewed by the Attending Physician. jr8 Vital Signs: 16:52 Pulse 127; Resp 24 S; Temp 100.8(O); Pulse Ox 96% on R/A; Weight 72.57 kg (R); Height 5 aa5 ft. 8 in. (172.72 cm) (R); 17:11 BP 107 / 89; Pulse 117; Resp 19 S; Pulse Ox 96% on R/A; ca1 18:17 BP 135 / 90; Pulse 99; Resp 14 S; Temp 98.8(O); Pulse Ox 95% on R/A; ca1 18:30 Temp 98.8; ca1 18:50 BP 116 / 85; Pulse 98; Resp 17 S; Pulse Ox 99% on R/A; ca1 19:30 BP 137 / 91; Pulse 90; Resp 16 S; Pulse Ox 97% on R/A; ca1 20:00 BP 131 / 91; Pulse 112; Resp 16; Temp 97.5(O); Pulse Ox 95% on R/A; Pain 8/10; fu 20:06 BP 131 / 91; Pulse 111; Resp 18 S; Pulse Ox 95% on R/A; ca1 20:22 Pulse 102; ca1 16:52 Body Mass Index 24.33 (72.57 kg, 172.72 cm) aa5 MDM: 16:53 Patient medically screened. [facility] [place] 18:05 Data reviewed: vital signs, nurses notes, lab test result(s), EKG, radiologic studies, jr8 plain films. Data interpreted: Pulse oximetry: on room air is 96 %. Interpretation: normal. Transition of care: After a detail discussion of the patient's case, care is transferred to Sumit ENRIQUEZ. 19:33 ED course: I discussed the HPI with the patient. Patient states he will occasionally jmm fall asleep in his wheelchair. Patient states he has discussed similar episodes with pcp and attributes it to a low RBC count. Patient states he is chronically leukopenic due to steroids for psoriatic arthritis. I discussed the patient with Dr. Osorio whom stated he is unable to operate due to total knee replacement. Patient was febrile in the ED but denies any URI symptoms. Denies cough, sore throat. . 02/03 17:01 Order name: Basic Metabolic Panel; Complete Time: 18:29 [facility] [place] 02/03 17:01 Order name: Blood Culture Adult (2) [facility] [place] 02/03 17:01 Order name: CBC with Diff; Complete Time: 18:50 [facility] [place] 02/03 17:01 Order name: CPK; Complete Time: 18:29 [facility] [place] 02/03 17:01 Order name: Lactate; Complete Time: 18:29 [facility] [place] 02/03 17:01 Order name: LFT's; Complete Time: 18:29 [facility] [place] 02/03 17:01 Order name: Lipase; Complete Time: 18:29 [facility] [place] 02/03 17:01 Order name: Procalcitonin; Complete Time: 18:29 [facility] [place] 02/03 17:01 Order name: Protime (+inr); Complete Time: 18:04 [facility] [place] 02/03 17:01 Order name: Ptt, Activated; Complete Time: 18:04 [facility] [place] 02/03 17:01 Order name: Troponin (emerg Dept Use Only); Complete Time: 18:29 [facility] [place] 02/03 17:01 Order name: Urine Microscopic Only; Complete Time: 19:28 [facility] [place] 02/03 17:50 Order name: Influenza Screen (a \T\ B); Complete Time: 18:29 [facility] [place] 02/03 17:50 Order name: Strep; Complete Time: 18:29 [facility] [place] 02/03 17:01 Order name: Chest Single View XRAY; Complete Time: 18:29 [facility] [place] 02/03 17:01 Order name: Cardiac monitoring; Complete Time: 17:06 [facility] [place] 02/03 17:01 Order name: EKG - Nurse/Tech; Complete Time: 18:01 [facility] [place] 02/03 17:01 Order name: XRAY Tib Fib RIGHT; Complete Time: 18:29 [facility] [place] 02/03 18:24 Order name: Throat Culture [facility] 02/03 18:45 Order name: Manual Differential; Complete Time: 18:50 [facility] 02/03 19:11 Order name: Urine Culture [facility] 02/03 17:01 Order name: IV Saline Lock - Large Bore; Complete Time: 18:01 [facility] [place] 02/03 17:01 Order name: Labs collected and sent; Complete Time: 18:02/03 17:01 Order name: O2 Per Protocol; Complete Time: 17:02/03 17:01 Order name: O2 Sat Monitoring; Complete Time: 17:02/03 17:01 Order name: Urine Dipstick-Ancillary (obtain specimen); Complete Time: 18:29 02/03 17:41 Order name: Labs - recollect needed: recollect lactate. call lab when you send the bd blood.; Complete Time: 18:13 EC:50 Rate is 103 beats/min. Rhythm is regular, Sinus tachycardia. Left axis deviation noted. jr8 NM interval is normal at 128 msec. QRS interval is prolonged at 130 msec. QT interval is prolonged at 468 msec. No Q waves. T waves are Inverted in lead V3. T waves are Flattened in lead III. No ST changes noted. Clinical impression: Sinus tachycardia and RBBB. Interpreted by me. Reviewed by me. Administered Medications: 17:35 Drug: NS 0.9% (30 ml/kg) 30 ml/kg Route: IV; Rate: bolus; Site: left forearm; ca1 19:00 Follow up: Urine output 130 ml; Response: No adverse reaction; IV Status: Completed ca1 infusion 17:54 Drug: Zofran (Ondansetron) 4 mg Route: IVP; Site: left forearm; ca1 18:30 Follow up: Response: No adverse reaction; Nausea is decreased ca1 17:55 Drug: Cefepime 1 grams Route: IVPB; Rate: 200 ml/hr; Infused Over: 30 mins; Site: right ca1 forearm; 17:57 Drug: fentaNYL (PF) 75 mcg {Note: RASS - 0.} Route: IVP; Site: left forearm; ca1 18:30 Follow up: Response: No adverse reaction; Pain is decreased; RASS: Alert and Calm (0) ca1 18:00 Drug: Acetaminophen 1000 mg Route: PO; ca1 18:30 Follow up: Temp 98.8; Response: No adverse reaction; Temperature is decreased ca1 18:39 Drug: vancoMYCIN 1 grams Route: IVPB; Infused Over: 2 hrs; Site: right forearm; ca1 20:01 Drug: morphine 4 mg Route: IVP; Site: right forearm; fu 20:31 Follow up: Response: Pain is decreased fu Disposition: 02/04/20 19:37 Transfer ordered to [facility]. Diagnosis are Proximal Tibial Fracture, Syncope and collapse. - Reason for transfer: Higher level of care. - Accepting physician is Andrez Borges. - Condition is Stable. - Problem is new. - Symptoms have improved. Signatures: Dispatcher [employer] EDMS Brenda Barcenas Joel, PA PA jmm Calderon, Audri RN RN aa5 Norman Cameron PA PA jr8 Nabor Granados RN RN fu AcobSussy RN RN ca1 Corrections: (The following items were deleted from the chart) 17:47 17:03 Knee Right 3 View+RAD.RAD.BRZ ordered. EDAK EDMS 17:47 17:46 Neuro: Positive for headache, jr8 jr8 18:13 17:01 Accucheck ordered. jr8 ca1 20:42 16:52 Allergies: Demerol; aa5 fu 21:22 19:37 02/04/2020 19:37 Transfer ordered to [facility]. Diagnosis is fu Proximal Tibial Fracture; Syncope and collapse. Reason for transfer: Higher level of care. Accepting physician is Andrez Borges. Condition is Stable. Problem is new. Symptoms have improved. jesús
--- NOTE | 2020-02-04 19:38 | ER ---
Nurse's Notes [facility] Name: Nabor Barrow Jr Age: 55 yrs Sex: Male : 1965 Arrival Date: 02/04/2020 Time: 16:44 Bed 20 Private MD: Diagnosis: Proximal Tibial Fracture;Syncope and collapse Presentation: 02/03 16:52 Coronavirus screen: Surgical mask placed on patient. Patient moved to private room, aa5 placed in contact and droplet isolation with eye protection until further assessment. Patient denies a cough. Patient denies shortness of breath or difficulty breathing. Patient reports a measured and/or subjective temperature greater than 100.4F. Patient denies travel on a cruise ship or to a country the [facility] currently lists as an affected area. Patient denies contact with known and/or suspected case of COVID-19. Risk Assessment: Do you want to hurt yourself or someone else? Patient reports no desire to harm self or others. 16:52 Acuity: INNA 2 aa5 16:52 Chief complaint: Patient states: "I passed out a few hours ago and hurt my leg". pt c/o aa5 right lower leg pain, abrasions noted to back of head, no bleeding noted. Pt denies cough/congestion/SOB. Ebola Screen: Patient negative for fever greater than or equal to 101.5 degrees Fahrenheit, and additional compatible Ebola Virus Disease symptoms. Initial Sepsis Screen: Does the patient meet any 2 criteria? RR > 20 per min. HR > 90 bpm. Yes Does the patient have a suspected source of infection? Yes:. 16:52 Method Of Arrival: Ambulatory aa5 17:00 Onset of symptoms was February 04, 2020. ca1 Triage Assessment: 18:18 General: Appears. Injury Description:. ca1 Historical: - Allergies: 16:52 Aspirin; aa5 16:52 azathioprine sodium; aa5 16:52 Imuran; aa5 16:52 Lyrica; aa5 16:52 NSAIDS (Non-Steroidal Anti-Inflamma; aa5 - PMHx: 16:52 Arthritis; Chronic pain; Hypertension; Kidney stones; psoriatic arthirits; stroke 2009; aa5 - PSHx: 16:52 L BKA; aa5 - Immunization history:: Adult Immunizations up to date. - Social history:: Smoking status: Patient denies any tobacco usage or history of. Screenin:05 Abuse screen: Denies threats or abuse. Denies injuries from another. Nutritional ca1 screening: No deficits noted. Tuberculosis screening: No symptoms or risk factors identified. Fall Risk Fall in past 12 months (25 points). Secondary diagnosis (15 points) impaired mobility, IV access (20 points). Ambulatory Aid- None/Bed Rest/Nurse Assist (0 pts). Total Milner Fall Scale indicates High Risk Score (45 or more points). Fall prevention measures have been instituted. Side Rails Up X 2 Frequent Obs/Assessments Occuring Family Present and informed to notify staff if the need to leave the bedside As available patient and family educated on Fall Prevention Program and Strategies. Assessment: 14:50 Reassessment: Patient appears in no apparent distress at this time. Patient and/or fu family updated on plan of care and expected duration. Pain level reassessed. Patient is alert, oriented x 3, equal unlabored respirations, skin warm/dry/pink. patient complaining of pain to the right leg, MINA Chou notified, with orders made. 17:05 General: Appears in no apparent distress. uncomfortable, ill, Behavior is calm, ca1 cooperative, appropriate for age. Pain: Complains of pain in right knee Pain currently is 9 out of 10 on a pain scale. Neuro: Level of Consciousness is awake, alert, obeys commands, Oriented to person, place, time, situation, Appropriate for age. Cardiovascular: Heart tones S1 S2 present Capillary refill < 3 seconds Patient's skin is warm and dry. Rhythm is sinus tachycardia. Respiratory: Airway is patent Respiratory effort is even, unlabored, Respiratory pattern is regular, symmetrical, Breath sounds are clear bilaterally. GI: Abdomen is round non-distended, Bowel sounds present X 4 quads. Abd is soft and non tender X 4 quads. : Urine is clear. EENT: No signs and/or symptoms were reported regarding the EENT system. Derm: Skin is intact, is healthy with good turgor, Skin is pink, warm \\T\\ dry. Musculoskeletal: Amputation of left leg. Circulation, motion, and sensation intact. Capillary refill is > 3 seconds, Swelling present in right knee, right rubalcava, anterior aspect of right ankle and dorsum of right foot. 18:17 Reassessment: Patient appears in no apparent distress at this time. Patient and/or ca1 family updated on plan of care and expected duration. Pain level reassessed. Patient is alert, oriented x 3, equal unlabored respirations, skin warm/dry/pink. 18:50 Reassessment: Patient appears in no apparent distress at this time. Patient is alert, ca1 oriented x 3, equal unlabored respirations, skin warm/dry/pink. 19:30 Reassessment: Patient appears in no apparent distress at this time. Patient and/or fu family updated on plan of care and expected duration. Pain level reassessed. Patient is alert, oriented x 3, equal unlabored respirations, skin warm/dry/pink. patient complaining of right leg pain scale od 8/10, MINA Chou notified. 20:25 Reassessment: Patient for transfer. Report called to Tina Corley RN in [facility]. 20:42 Reassessment: Patient stated he is not allergic to Demerol and want it deleted on his allergy list. Vital Signs: 16:52 Pulse 127; Resp 24 S; Temp 100.8(O); Pulse Ox 96% on R/A; Weight 72.57 kg (R); Height 5 aa5 ft. 8 in. (172.72 cm) (R); 17:11 BP 107 / 89; Pulse 117; Resp 19 S; Pulse Ox 96% on R/A; ca1 18:17 BP 135 / 90; Pulse 99; Resp 14 S; Temp 98.8(O); Pulse Ox 95% on R/A; ca1 18:30 Temp 98.8; ca1 18:50 BP 116 / 85; Pulse 98; Resp 17 S; Pulse Ox 99% on R/A; ca1 19:30 BP 137 / 91; Pulse 90; Resp 16 S; Pulse Ox 97% on R/A; ca1 20:00 BP 131 / 91; Pulse 112; Resp 16; Temp 97.5(O); Pulse Ox 95% on R/A; Pain 8/10; fu 20:06 BP 131 / 91; Pulse 111; Resp 18 S; Pulse Ox 95% on R/A; ca1 20:22 Pulse 102; ca1 16:52 Body Mass Index 24.33 (72.57 kg, 172.72 cm) aa5 ED Course: 16:44 Patient arrived in ED. fj1 16:52 Norman Cameron PA is PHCP. jr8 16:52 Checo Reddy DO is Attending Physician. jr8 16:52 Arm band placed on. aa5 17:05 Sussy Stubbs, RN is Primary Nurse. ca1 17:05 Triage completed. aa5 17:05 Patient has correct armband on for positive identification. Placed in gown. Bed in low ca1 position. Call light in reach. Side rails up X2. emc storage architect on. Pulse ox on. NIBP on. Head of bed elevated. Elevated right knee. 17:35 No provider procedures requiring assistance completed. Inserted saline lock: 20 gauge ca1 in right forearm, using aseptic technique. Blood collected. 17:35 Initial lab(s) drawn, by me, sent to lab. First set of blood cultures drawn by me. ca1 17:50 Second set of blood cultures drawn by me. Initial lab(s) drawn, Lab(s) recollected, by [facility] me, sent to lab. Inserted saline lock: 20 gauge in left forearm, using aseptic technique. Blood collected. 17:51 Chest Single View XRAY In Process Unspecified. EDMS 17:51 XRAY Tib Fib RIGHT In Process Unspecified. EDMS 18:06 PHCP role handed off by Norman Cameron PA [facility] 18:06 Sumit Linares PA is PHCP. [facility] 20:05 Patient transferred, IV remains in place. ca1 20:14 transfer transportation to receiving facility. fu 20:39 Urine Culture Sent. fu Administered Medications: 17:35 Drug: NS 0.9% (30 ml/kg) 30 ml/kg Route: IV; Rate: bolus; Site: left forearm; ca1 19:00 Follow up: Urine output 130 ml; Response: No adverse reaction; IV Status: Completed ca1 infusion 17:54 Drug: Zofran (Ondansetron) 4 mg Route: IVP; Site: left forearm; ca1 18:30 Follow up: Response: No adverse reaction; Nausea is decreased ca1 17:55 Drug: Cefepime 1 grams Route: IVPB; Rate: 200 ml/hr; Infused Over: 30 mins; Site: right ca1 forearm; 17:57 Drug: fentaNYL (PF) 75 mcg {Note: RASS - 0.} Route: IVP; Site: left forearm; ca1 18:30 Follow up: Response: No adverse reaction; Pain is decreased; RASS: Alert and Calm (0) ca1 18:00 Drug: Acetaminophen 1000 mg Route: PO; ca1 18:30 Follow up: Temp 98.8; Response: No adverse reaction; Temperature is decreased ca1 18:39 Drug: vancoMYCIN 1 grams Route: IVPB; Infused Over: 2 hrs; Site: right forearm; ca1 20:01 Drug: morphine 4 mg Route: IVP; Site: right forearm; fu 20:31 Follow up: Response: Pain is decreased fu Output: 19:00 Urine: 130ml; Total: 130ml. ca1 Outcome: 19:37 ER care complete, transfer ordered by . tom 21:15 Transferred to [facility]. fu 21:15 Transferred by ground EMS 21:15 Condition: stable 21:15 Instructed on the need for transfer. 21:22 Patient left the ED. fu Signatures: Dispatcher [employer] EDMS Sumit Linares PA PA jmm Calderon, Audri, RN RN [facility] Norman Cameron PA PA jr Nabor Granados RN RN Sussy Stubbs RN RN [facility] Rajat [facility] Corrections: (The following items were deleted from the chart) 17:11 16:52 Pulse 127bpm; Resp 24bpm; Spontaneous; Pulse Ox 96% RA; Temp 100.8F Oral; aa5 [facility] 18:19 17:05 Musculoskeletal: Amputation of left leg. Circulation, motion, and sensation ca1 intact. Capillary refill is > 3 seconds, Swelling present in right knee, right rubalcava, anterior aspect of right ankle and dorsum of right foot ca1 18:24 17:05 Cardiovascular: Heart tones S1 S2 present Capillary refill < 3 seconds Patient's ca1 skin is warm and dry. ca1 20:34 20:25 Reassessment: Patient for transfer. Report called to Tina Corley RN in [facility] 20:42 16:52 Allergies: Demerol; [facility]
[2020-02-04] MEDS ORDERED: MORPHINE 4 MG/ML SYR ONE (19:43)
[2020-02-04 21:39] VITALS: BP 131/91; TEMP 97.5; O2SAT 95
--- NOTE | 2020-02-05 11:02 | EKG ---
Test Date: 2020-02-04 Test Time: 17:36:34 Slice Plug Cutter Operator: COLUMBA MEASUREMENT RESULTS: Intervals: Rate: 103 OK: 128 QRSD: 130 QT: 358 QTc: 468 Raymond: P: 49 OK: 128 QRS: -90 T: 33 INTERPRETIVE STATEMENTS: Sinus tachycardia Right bundle branch block Left anterior fascicular block Bifascicular block Cannot rule out Inferior infarct (masked by fascicular block?), age undetermined Abnormal ECG Compared to ECG 07/06/2019 14:29:21 Left anterior fascicular block now present Bifascicular block now present Myocardial infarct finding still present Electronically Signed On 02-05-20 11:01:07 CDT by Mathieu Jorgensen
== END 2020-02-04 21:22 | disposition short-term general hospital (02) ==
LOC: ER 16:41
DX: S82.101A Unspecified fracture of upper end of right tibia, initial encounter for closed fracture (principal); I10 Essential (primary) hypertension; Z88.6 Allergy status to analgesic agent; Z88.8 Allergy status to other drugs, medicaments and biological substances
CPT/HCPCS: 96361; 93005; 87040 ×2; 87070; 85025; 87086; 80048; 36415; 82550; 85610; 80076; 87081; 83605; 85730; 81015; 84484; 83690; 84145; 87804 ×2; 71045; 73590; 96375; 96374; 99285; J3010; J3370; J7030; J2405; 87088

== ENCOUNTER 2021-07-14 09:54 | Emergency (ER) | payer OTHER ==
--- OUTSIDE RECORDS SUMMARY | 2021-07-14 10:00 | XMS REPORT | Continuity of Care Document ---
:1965 Author Organization [facility] t Address [address] [place] [address] Care Team Providers Name Role Phone Pcp MD, No Primary Care Physician Unavailable Emile Ruiz MD Attending Clinician Doctor Unassigned, [place] Attending Clinician Unavailable 2, Lab Attending Clinician Unavailable DEANGELO CLEMENT Attending Clinician Unavailable JONATHAN Attending Clinician Unavailable ELBA Attending Clinician Unavailable TIGRE Attending Clinician Unavailable HÉCTOR Attending Clinician Unavailable MARCO Attending Clinician Unavailable GUSTAVO Attending Clinician Unavailable SHREYAS Attending Clinician Unavailable MARINO Attending Clinician Unavailable KATIE Attending Clinician Unavailable SANJUANA Attending Clinician Unavailable DEANGELO CLEMENT Admitting Clinician Unavailable Payers Payer Name Policy Type Policy Number Effective Date Expiration Date S ource Problems Condition Condition Condition Status Onset Resolution Last Treating Co mments Source Name Details Category Date Date Treatment Clinician Date 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 07[facility]16 [facility] - [facility] 00 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 07[facility]16 [facility] - steroid steroid 00:00: Medical user user 00 Center Leukocytos Leukocytos Disease Active [facility] is is 07[facility]16 [facility] History of History of Problem Active [facility] kidney kidney ity of stones stones [place] Physici ans Depression Depression Problem Active [facility] ity of [place] Phys[facility] ans Abscess of Abscess of Problem Active U nivers bursa of bursa of ity of right right [place] ankle ankle Physici ans Injury of Injury of Problem Active Uni vers left left ity of elbow, elbow, [place] initial initial Physici encounter encounter ans Osteoporos Osteoporos Problem Active U [facility] [place] Left elbow Left elbow Problem Active [facility] pain pain ity of [place] Physici ans Bilateral Bilateral Problem Active Uni vers knee pain knee pain ity of [place] Physici ans Status Status Problem Active 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 [place] knee knee Physici replacemen replacemen an s t t Arthritis Arthritis Problem Active Uni vers of elbow, of elbow, ity of left left [place] Physici ans Arthritis Arthritis Problem Active Uni vers of elbow, of elbow, ity of right right [place] Physici ans Gait Gait Problem Active Univers instabilit instabilit it y of y y [place] Physici ans Age Age Problem Active Univers related related ity of osteopor[place]os [place] is, is, Physici unspecifie unspecifie an s d d pathologic pathologic al al fracture fracture presence presence Amputated Amputated Problem Active Uni vers left leg left leg ity of [place] Physici ans Allergies, Adverse Reactions, Alerts Allergy Allergy Status Severity Reaction(s) Onset Inactive Treating Comm ents Source Name Type Date Date Clinician azathiop DA Active [facility] [place] [facility] pregabal DA Active [facility] [place] [facility] Aspirin Propensi Active Nausea And [address] [facility] to Vomiting 07-06 [facility] - adverse 00:00: Medical reaction 00 [place] Azathiop Propensi Active Anaphylaxis [facility] ty to 07-06 [facility] - adverse 00:00: Medical reaction 00 Center s Pregabal Propensi Active Swelling [facility] in ty to 07-06 [facility] - adverse 00:00: Medical reaction 00 Center s Aspirin drug Active Univers TABS allergy ity of [place] Physici ans Imuran drug Active Univers allergy ity of [place] Physici ans Lyrica drug Active Univers CAPS allergy ity of [place] Physici ans Family History Family Member Diagnosis Comments Start Date Stop Date Source Mother Family history of Univers it of [place] diabetes mellitus Physici ans Mother Family history of [facility] of [place] hypertension Physicians Natural mother [facility] Social History Social Habit Start Date Stop Date Quantity Comments Source History SDOH [facility] Alcohol Std Drinks Medica l Center History SDOH [facility] - Alcohol Binge Medical [facility] Sex Assigned [facility] [place] [facility] Tobacco use and 2019-07-08 2019-07-08 Never used [facility] kes - exposure 00:00:00 00:00:00 [facility] Alcohol intake 2019-07-08 2019-07-[address] [facility] [address] [facility] - 00:00:00 00:00:00 non-drinker of Medical Ce nter alcohol (finding) Tobacco Comment 2019-07-06 2019-07-06 QUIT OVER [address] [facility] - 00:00:00 00:00:[facility] Medical Center History SDOH 2019-07-06 2019-07-[address] [facility] - Alcohol Frequency 00:00:00 00:00:00 [facility] Smoking Status Start Date Stop Date Source Never smoker [facility] Physicians Former smoker 2019-07-08 00:00:00 2019-07-08 00:00:00 [facility] Medications Ordered Filled Start Stop Current Ordering Indication Dosage Frequency Signature Comments Components Source Medication Medication Date Date Medication? Clinician (SIG) Name Name predniSONE Yes 5mg Q.5D Take [address] (DELTASONE) 9-11 by mouth 2 Dianne kes - 5 MG tablet 14:01: (two) Medic al 49 times Center daily. gabapentin 2019- Yes 800mg [id number] Take [address] (NEURONTIN) 9-11 [id number] mg by L ukes - 800 MG 14:01: 3D mouth 3 Medical tablet 49 (three) Center times daily. oxyCODONE-a 2018- Yes 1{tbl} Take [address] cetaminophe 9-11 tablet by Lilly es - n 14:01: mouth Medical (PERCOCET) 49 every 4 Center 10-325 mg (four) per tablet hours as needed for Pain. esomeprazol Yes 40mg Take [address] [facility] (NEXIUM) 9-11 by mouth [facility] - 40 MG 14:01: as needed. Medica l capsule 49 [place] teriparatid Yes QD Inject [facility] (FORTEO 9-11 subcutaneo [facility] - SUBQ) 14:01: usly daily Medica l 49 . Center testosteron Yes 200mg Q7D Inject [address] cypionate 9-11 mg [facility] - (DEPOTESTOT 14:01: intramuscu Medical ERONE 49 larly once Center CYPIONATE) a week. 200 mg/mL injection Vitamin D3 Vitamin D3 Yes CJ Take 1 Univers 1.25 MG 1.25 MG 3-30 CHEN PA capsule a ity of (46748 UT) (72492 UT) 00:00: week for [place] Oral Oral 00 12 weeks. Physici Capsule Capsule ans predniSONE predniSONE Yes Q0.5D TAKE 1 Univers 5 MG Oral 5 MG Oral 2-08 TABLET ity of Tablet Tablet 00:00: TWICE [place] 00 DAILY. Physici ans fentaNYL fentaNYL Yes APPLY 1 Un melchor 100 MCG/HR 100 MCG/HR 2-08 PATCH it y of Transdermal Transdermal 00:00: EVERY 3 [place] Patch 72 Patch 72 00 DAYS Physici Hour Hour ans Morphine Morphine Yes 1 TAKE 1 Uni vers Sulfate 30 Sulfate 30 2-08 TABLET i ty of MG Oral MG Oral 00:00: EVERY 4 [place] Tablet Tablet 00 6 HOURS Physi ci DIRECTED. ans Cyclobenzap Cyclobenzap Yes 2 Q0.3333D TAKE 2 Univers rine HCl - rine HCl - 2-08 TABLET 3 ity of 10 MG Oral 10 MG Oral 00:00: TIMES [place] Tablet Tablet 00 DAILY Physici ans Amitriptyli Amitriptyli Yes EMIR 1 TAKE 1 Univers ne HCl - 25 ne HCl - 25 2-08 KATIE M.DBenedict TABLET AT ity of MG Oral MG Oral 00:00: BEDTIME. Florentino as Tablet Tablet 00 Physici ans Immunizations Ordered Filled Immunization Date Status Comments Sourc e Immunization Name Name Td 2011-02-16 Completed University of 00:00:00 [place] Physicia ns Vital Signs Vital Name Observation Time Observation Value Comments Source Height 2018-05-31 14:24:00 71 [in_us] [facility] [place] [facility] Weight 2018-05-31 14:24:00 180 [lb_av] [facility] Physicians Body Mass Index 2018-05-31 14:24:00 25.11 kg/m2 Unive [facility] Calculated Physicians Height 2018-04-15 14:55:00 71 [in_us] [facility] Physicians Weight 2018-04-15 14:55:00 180 [lb_av] [facility] Physicians Body Mass Index 2018-04-15 14:55:00 25.11 kg/m2 [facility] Calculated Physicians Procedures Procedure Date / Time Performing Clinician Source Performed [Q] C TELOPEPTIDE (CTX) 2019-04-17 00:00:00 [facility] [Q] PROCOLLAGEN TYPE I 2019-04-17 00:00:00 [facility] INTACT N TERMINAL Physicians PROPEPTIDE [Q] VITAMIN D, 25-HYDROXY, 2019-04-17 00:[facility]MS Physicians [QLH] CMP W/EGFR 2019-04-17 00:00:00 [facility] Physicians [QLH] MAGNESIUM 2019-04-17 00:00:00 [facility] [place] [facility] [QLH] PHOSPHATE ( 2019-04-17 00:00:00 [facility] PHOSPHORUS) Physicians [QLH] PTH, INTACT (WITHOUT 2019-04-17 00:00:00 [facility] CAL[facility] Physicians [QLH] TSH, 3RD GENERATION 2019-04-17 00:00:00 [facility] W/REFLEX TO FT4 Physicians [O] Dexa Scan ([employer] 2019-04-17 00:00:00 [facility] [id number] Physicians [U] XRAY ELBOW MIN 3 VWS 2018-08-09 00:00:00 [facility] [place] LEFT [id number] Physicians [QLH] SED RATE BY MODIFIED 2018-04-15 00:00:00 [facility] WESTERGREN Physicians [QLH] C-REACTIVE PROTEIN 2018-04-15 00:00:00 Uni versity [facility] [place] Physicians History of Cholecystectomy Unive [facility] [place] Physicians History of Total Knee [facility] Replacement Left Physicians History of Total Knee [facility] Replacement Right Physicians History of Total Hip [facility] Replacement Physicians History of Shoulder [facility] [place] Arthroplasty Total Physicians Shoulder Replacement History of Amputation Of [facility] Leg Below Knee Physicians Re-amputation Plan of Care Planned Activity Planned Date Details Comments Source Future Scheduled 2029-07-[address] [facility] - Test 00:00:00 malignant neoplasm of Medica l Center colon (procedure) [code = 163661107] Future Scheduled 2020-07-06 INFLUENZA VACCINE (#1) [facility] - Test 00:00:00 [code = INFLUENZA Medical Ce nter VACCINE (#1)] Future Scheduled 2019-12-[address] [facility] - Test 00:00:00 WELLNESS (YEAR 2 or Medical Center FIRST YEAR if no IPPE) [code = MEDICARE ANNUAL WELLNESS (YEAR 2 or FIRST YEAR if no IPPE)] Future Scheduled [address] [facility] - Test 00:00:00 (procedure) [code = [facility] [id number]] Future Scheduled [address] [facility] - Test 00:00:00 0-64 YRS (1 of 3 - Medical C enter PCV13) [code = PNEUMOCOCCAL VACCINE 0-64 YRS (1 of 3 - PCV13)] Encounters Start End Encounter Admission Attending Care Care Encounter Source Date/Time Date/Time Type Type Clinicians Facility Department ID 2020-08-20 2020-08-20 Telephone Ruiz, [facility] [id number] 00:00:00 00:00:00 Emile Serrano [id number] [place] [id number] Octavio [id number] [facility] [address] [facility] 2020-08-19 2020-08-19 Telephone Ruiz, [facility] [id number] 00:00:00 00:00:00 Emile Serrano [id number] [place] [id number] Professio [id number] [facility] [address] [facility] 2020-08-09 2020-08-09 Orders Doctor NIELSEN [id number] 00:00:00 00:00:00 Only Unassigned, DANYELL [id number] [place] [id number] 2020-07-29 2020-07-29 Treasury Analyst 2, Adc Lab [facility] [id number] 09:40:34 09:55:34 Visit Maggie [id number] Maribel [id number] vishnu [id number] [facility] [address] [facility] 2020-07-28 2020-07-28 Orders Doctor GIA [id number] 00:00:00 00:00:00 Only Unassigned, DANYELL [id number] [facility] [place] [id number] 2020-07-21 2020-07-21 Office Ruiz, [facility] [id number] 13:35:42 14:12:35 Visit Emile Serrano [id number] [place] [id number] Profanahiio [id number] [facility] [address] [facility] 2019-04-17 2019-04-17 AppointCRISTIANA [facility] [id number] Univers 11:00:00 11:00:00 t; KELLI, Trauma ity of JONATHAN, P.A. [facility] [place], [place] Physi ci P.A. Medical [facility] Center 2019-01-23 2019-01-23 AppointCRISTIANA Bethea [facility] [id number] Univers 11:00:00 11:00:00 t; hannah PEREIRA JONATHAN, P.A. [facility] ci P.A. [facility] 2018-08-28 2018-08-28 AppointCRISTIANA Rod [facility] [id number] Univers 12:45:00 12:45:00 t; LINDSEY ARREOLA ity o f ANDREW, M.D. [place] M.D. Physici ans 2018-08-14 2018-08-14 AppointCRISTIANA Rod [facility] [id number] Univers 09:00:00 09:00:00 t; LINDSEY ARREOLA ity o f ANDREW, M.D. [place] M.D. Physici ans 2018-08-07 2018-08-07 AppointCRISTIANA Rod [facility] [id number] Univers 11:00:00 11:00:00 t; LINDSEY ARREOLA Orthopedics i ty Janie Gallego.D. Physici ans 2018-07-31 2018-07-31 Appointmen TIGRE, CRISTIANA UTP [id number] Univers 09:15:00 09:15:00 t; LOLLY LANDEROS i ty of Janie AMBROCIO M.D. Physici ans 2018-05-31 2018-05-31 Appointmen CRISTIANA ANAYA [facility] [id number] Univers 11:00:00 11:00:00 t; JANA ANAYA at [facility] Janie Schreiber M.D. Orthopedic Physi ci and Spine [facility] 2018-05-29 2018-05-29 Appointmen TIGRE, CRISTIANA UTP [id number] Univers 11:00:00 11:00:00 t; LOLLY LANDEROS i ty of Janie AMBROCIO M.D. Physici ans 2018-05-14 2018-05-14 Appointmen JONATHAN, CRISTIANA UTP [id number] Univers 09:30:00 09:30:00 t; hannah PEREIRA of JONATHAN, P.A. [place] KELLI, Physi ci P.A. ans 2018-05-03 2018-05-03 Appointmen CRISTIANA CASTILLO [facility] [id number] Univers 11:30:00 11:30:00 t; hannah PEREIRA of JONATHAN, P.A. [place] KELLI, Physi ci P.A. ans 2018-04-17 2018-04-17 Appointmen CRISTIANA LANDEROS UTP [id number] Univers 08:30:00 08:30:00 t; LOLLY LANDEROS i ty of Janie AMBROCIO M.D. Physici ans 2018-04-15 2018-04-15 Appointmen HÉCTOR, CRISTIANA [facility] [id number] Univers 14:45:00 14:45:00 t; JANA ANAYA Ortho and i ty of Janie B[facility] [place] ans 2018-03-04 2018-03-04 Appointmen CRISTIANA LARA UTP [id number] Univers 11:00:00 11:00:00 t; MIGUELINA LARA NP ity of PALMA MCINTYRE [place] Physici ans 2018-02-01 2018-02-01 Appointmen GUSTAVO, [facility] UTP [id number] Univers 11:15:00 11:15:00 t; CJ CHEN PA [facility] ans 2017-12-14 2017-12-14 Appointmen GUSTAVO, UTP UTP [id number] Univers 10:30:00 10:30:00 t; CJ CHEN PA ity of [facility] Physici ans 2017-11-28 2017-11-28 Appointmen ELBA, [facility] UTP [id number] Univers 14:00:00 14:00:00 t; LINDSEY ARREOLA ity o f ANDREW, M.D. [facility].DBenedict Physici ans 2017-06-20 2017-06-20 Appointmen TIGRE, [facility] UTP [id number] Univers 09:30:00 09:30:00 t; LOLLY LANDEROS i ty of Janie AMBROCIO [facility].Berta Physici ans 2017-05-11 2017-05-11 Appointmen SHREYAS, [facility] UTP [id number] Univers 09:00:00 09:00:00 t; IRENE PRITCHETT M.D. ity [place] BONILLA M.D. [place] Physici ans 2017-04-24 2017-04-24 Appointmen TIGRE, [facility] UTP [id number] Univers 10:45:00 10:45:00 t; LOLLY LANDEROS i ty of DANIELLE, [facility]. [facility] ans 2017-04-04 2017-04-04 Appointmen MARINO, [facility] UTP [id number] Univers 11:00:00 11:00:00 t; Court RICHMOND M.D. [place] YI Physic i MBenedictDBenedict ans 2017-02-27 2017-02-27 Appointmen TIGRE, [facility] UTP [id number] Univers 08:45:00 08:45:00 t; LOLLY LANDEROS i ty of Janie AMBROCIO [place] Janie Physici ans 2017-02-20 2017-02-20 Appointmen TIGRE, UTP UTP [id number] Univers 09:00:00 09:00:00 t; LOLLY LANDEROS i ty of Janie AMBROCIO [facility] Physici ans 2017-02-13 2017-02-13 Appointmen TIGRE, [facility] UTP [id number] Univers 08:45:00 08:45:00 t; LOLLY LANDEROS i ty of Janie AMBROCIO [facility]. Physici ans 2016-12-27 2016-12-27 Appointmen ELBA, UTP UTP [id number] Univers 12:45:00 12:45:00 t; LINDSEY ARREOLA ity o f ANDREW, M.D. [facility] Physici ans 2016-12-20 2016-12-20 Appointmen ELBA, UTP UTP [id number] Univers 10:45:00 10:45:00 t; LINDSEY ARREOLA ity o f ANDREW, M.D. [facility] Physici ans 2016-12-13 2016-12-13 Appointmen ELBA, UTP UTP [id number] Univers 12:30:00 12:30:00 t; LINDSEY ARREOLA ity o f ANDREW, M.D. [facility] Physici ans 2016-12-13 2016-12-13 Appointmen KATIE, [facility] UTP [id number] Univers 09:30:00 09:30:00 t; EMIR WILSON, sheyla y of Janie FIELD [facility] Physici ans 2016-11-29 2016-11-29 Appointmen MARCO, CRISTIANA UTP [id number] Univers 11:30:00 11:30:00 t; MIGUELINA LARA NP ity of TAMI, NP [place] Physici ans 2016-11-28 2016-11-28 Appointmen CRISTIANA WEI UTP [id number] Univers 15:00:00 15:00:00 t; TAMMI WEI M.D. ity of TAMMI [place] Janie Physic ans Results Test Description Test Time Test Comments Results Result Comments Source GLUBED 2020-04-16 10:33:00 Test Item Value Reference Range Interpretation Comme nts GLUBED (test code = GLUBED) 91 MG/DL 70-105 N Novel Coronavirus 2019 [id number] 20:31:00 Test Item Value Reference Range Interpretation Comments Novel Coronavirus 2019 Inhouse (test Negative Negative code = COVNONPUI) Testing Criteria: Preprocedure ScreeningNovel Coronavirus 2019 Inhouse 2020-04-14 20:31:00 Test Item Value Reference Range Interpretation Comments Novel Coronavirus 2019 Inhouse (test Negative Negative code = COVNONPUI) Testing Criteria: Preprocedure [id number] 11:15:00 Test Item Value Reference Range Interpretation Comments HEMOGLOBIN (test code = HGB) 16.8 g/dL 14.5-20 N [id number] 11:15:00 Test Item Value Reference Range Interpretation Comments HEMATOCRIT (test code = HCT) 52.1 % 42.0-52.0 H BLOOD [id number] 08:01:00 Test Item Value Reference Range Interpretation Comments CULTURE (BEAKER) (test No growth in 5 days code = 1095) BLOOD [id number] 08:01:00 Test Item Value Reference Range Interpretation Comments CULTURE (BEAKER) (test No growth in 5 days code = 1095) BASIC METABOLIC [id number] 06:08:00 Test Item Value Reference Range Interpretation Comments SODIUM (BEAKER) 140 meq/L 136-145 (test code = 381) POTASSIUM (BEAKER) 3.8 meq/L 3.5-5.1 (test code = 379) CHLORIDE (BEAKER) 106 meq/L 98-107 (test code = 382) CO2 (BEAKER) (test 32 meq/L 22-29 H code = 355) BLOOD UREA NITROGEN 13 mg/dL 7-21 (BEAKER) (test code = 354) CREATININE (BEAKER) 0.57 mg/dL 0.57-1.25 (test code = 358) GLUCOSE RANDOM 91 mg/dL 70-105 (BEAKER) (test code = 652) CALCIUM (BEAKER) 7.6 mg/dL 8.4-10.2 L (test code = 697) EGFR (BEAKER) (test 150 mL/min/1.73 ESTIM ATED GFR IS code = 1092) sq m NOT ACCURATE CREATININE CLEARANCE IN PREDICTING GLOMERULAR FILTRATION RATE . ESTIMATED GFR I S NOT APPLICABLE FOR DIALYSIS PATIEN TS. CBC W/PLT COUNT & AUTO [id number] 07:49:00 Test Item Value Reference Range Interpretation Comments WHITE BLOOD CELL COUNT (BEAKER) 32.1 K/ L 3.5-10.5 H (test code = 775) RED BLOOD CELL COUNT (BEAKER) 3.78 M/ L 4.63-6.08 L (test code = 761) HEMOGLOBIN (BEAKER) (test code = 10.5 GM/DL 13.7-17.5 L 410) HEMATOCRIT (BEAKER) (test code = 35.3 % 40.1-51.0 L 411) MEAN CORPUSCULAR VOLUME (BEAKER) 93.4 fL 79.0-92.2 H (test code = 753) MEAN CORPUSCULAR HEMOGLOBIN 27.8 pg 25.7-32.2 (BEAKER) (test code = 751) MEAN CORPUSCULAR HEMOGLOBIN CONC 29.7 GM/DL 32.3-36.5 L (BEAKER) (test code = 752) RED CELL DISTRIBUTION WIDTH 23.3 % 11.6-14.4 H (BEAKER) (test code = 412) PLATELET COUNT (BEAKER) (test 495 K/CU MM 150-450 H code = 756) MEAN PLATELET VOLUME (BEAKER) 9.8 fL 9.4-12.4 (test code = 754) NUCLEATED RED BLOOD CELLS 1 /100 WBC 0-0 H (BEAKER) (test code = 413) (CELLAVISION MANUAL DIFF)2019-07-15 07:49:00 Test Item Value Reference Range Interpretation Comments NEUTROPHILS - REL 88 % (CELLAVISION)(BEAKER) (test code = 2816) LYMPHOCYTES - REL 5 % (CELLAVISION)(BEAKER) (test code = 2817) MONOCYTES - REL 4 % (CELLAVISION)(BEAKER) (test code = 2818) EOSINOPHILS - REL 2 % (CELLAVISION)(BEAKER) (test code = 2819) METAMYELOCYTES - REL 1 % 0-0 H (CELLAVISION)(BEAKER) (test code = 2821) NEUTROPHILS - ABS 28.25 K/ul 1.78-5.38 H (CELLAVISION)(BEAKER) (test code = 2830) LYMPHOCYTES - ABS 1.61 K/ul 1.32-3.57 (CELLAVISION)(BEAKER) (test code = 2831) MONOCYTES - ABS 1.28 K/uL 0.30-0.82 H (CELLAVISION)(BEAKER) (test code = 2832) EOSINOPHILS - ABS 0.64 K/uL 0.04-0.54 H (CELLAVISION)(BEAKER) (test code = 2834) METAMYELOCYTES - ABS 0.32 K/uL 0.00-0.00 H (CELLAVISION)(BEAKER) (test code = 2836) TOTAL COUNTED (BEAKER) (test code 100 = 1351) MANUAL NRBC PER 100 CELLS 1 /100 WBC 0-0 H (BEAKER) (test code = 1353) WBC MORPHOLOGY (BEAKER) (test Normal code = 487) PLT MORPHOLOGY (BEAKER) (test Normal code = 486) POLYCHROMATOPHILLIC RBCS(BEAKER) 2+ moderate (test code = 478) HYPOCHROMIA (BEAKER) (test code = 1+ few 963) ANISOCYTOSIS (BEAKER) (test code 2+ moderate = 961) MACROCYTES (BEAKER) (test code = 1+ few 964) POIKILOCYTES (BEAKER) (test code 1+ few = 966) OVALOCYTES (BEAKER) (test code = 1+ few 477) TEAR DROP CELLS (BEAKER) (test 1+ few code = 481) BASOPHILIC STIPPLING (BEAKER) Present (test code = 473) ARTIFACT (CELLAVISION)(BEAKER) Present (test code = 3432) HELMET CELLS 1+ few (CELLAVISION)(BEAKER) (test code = 3434) PLATELET CONCENTRATION Increased (CELLAVISION)(BEAKER) (test code = 3438) Received comment: User comments: Slide comments:BASIC METABOLIC [id number] 05:04:00 Test Item Value Reference Range Interpretation Comments SODIUM (BEAKER) 142 meq/L 136-145 (test code = 381) POTASSIUM (BEAKER) 3.2 meq/L 3.5-5.1 L (test code = 379) CHLORIDE (BEAKER) 105 meq/L 98-107 (test code = 382) CO2 (BEAKER) (test 32 meq/L 22-29 H code = 355) BLOOD UREA NITROGEN 11 mg/dL 7-21 (BEAKER) (test code = 354) CREATININE (BEAKER) 0.60 mg/dL 0.57-1.25 (test code = 358) GLUCOSE RANDOM 120 mg/dL 70-105 H (BEAKER) (test code = 652) CALCIUM (BEAKER) 7.9 mg/dL 8.4-10.2 L (test code = 697) EGFR (BEAKER) (test 141 mL/min/1.73 ESTIM ATED GFR IS code = 1092) sq m NOT ACCURATE CREATININE CLEARANCE IN PREDICTING GLOMERULAR FILTRATION RATE . ESTIMATED GFR I S NOT APPLICABLE FOR DIALYSIS PATIEN TS. CBC W/PLT COUNT & AUTO [id number] 09:25:00 Test Item Value Reference Range Interpretation Comments WHITE BLOOD CELL COUNT (BEAKER) 27.2 K/ L 3.5-10.5 H (test code = 775) RED BLOOD CELL COUNT (BEAKER) 3.06 M/ L 4.63-6.08 L (test code = 761) HEMOGLOBIN (BEAKER) (test code = 9.0 GM/DL 13.7-17.5 L 410) HEMATOCRIT (BEAKER) (test code = 28.8 % 40.1-51.0 L 411) MEAN CORPUSCULAR VOLUME (BEAKER) 94.1 fL 79.0-92.2 H (test code = 753) MEAN CORPUSCULAR HEMOGLOBIN 29.4 pg 25.7-32.2 (BEAKER) (test code = 751) MEAN CORPUSCULAR HEMOGLOBIN CONC 31.3 GM/DL 32.3-36.5 L (BEAKER) (test code = 752) RED CELL DISTRIBUTION WIDTH 23.3 % 11.6-14.4 H (BEAKER) (test code = 412) PLATELET COUNT (BEAKER) (test 422 K/CU MM 150-450 code = 756) MEAN PLATELET VOLUME (BEAKER) 9.6 fL 9.4-12.4 (test code = 754) NUCLEATED RED BLOOD CELLS 1 /100 WBC 0-0 H (BEAKER) (test code = 413) (CELLAVISION MANUAL DIFF)2019-07-14 09:25:00 Test Item Value Reference Range Interpretation Comments NEUTROPHILS - REL 83 % (CELLAVISION)(BEAKER) (test code = 2816) LYMPHOCYTES - REL 5 % (CELLAVISION)(BEAKER) (test code = 2817) MONOCYTES - REL 9 % (CELLAVISION)(BEAKER) (test code = 2818) BANDS - REL (CELLAVISION)(BEAKER) 2 % 0-10 (test code = 2826) ATYPICAL LYMPHOCYTES - REL 1 % 0-0 H (CELLAVISION)(BEAKER) (test code = 2829) NEUTROPHILS - ABS 22.58 K/ul 1.78-5.38 H (CELLAVISION)(BEAKER) (test code = 2830) LYMPHOCYTES - ABS 1.36 K/ul 1.32-3.57 (CELLAVISION)(BEAKER) (test code = 2831) MONOCYTES - ABS 2.45 K/uL 0.30-0.82 H (CELLAVISION)(BEAKER) (test code = 2832) BANDS - ABS (CELLAVISION)(BEAKER) 0.54 K/uL 0.00-0.80 (test code = 2840) ATYPICAL LYMPHOCYTES - ABS 0.27 K/uL 0.00-0.00 H (CELLAVISION)(BEAKER) (test code = 2858) TOTAL COUNTED (BEAKER) (test code 100 = 1351) WBC MORPHOLOGY (BEAKER) (test Normal code = 487) GIANT PLATELETS (BEAKER) (test Present code = 313) LARGE PLT(BEAKER) (test code = Present 2156) POLYCHROMATOPHILLIC RBCS(BEAKER) 2+ moderate (test code = 478) ANISOCYTOSIS (BEAKER) (test code 1+ few = 961) MACROCYTES (BEAKER) (test code = 1+ few 964) POIKILOCYTES (BEAKER) (test code 1+ few = 966) ELLIPTOCYTES (BEAKER) (test code 1+ few = 962) OVALOCYTES (BEAKER) (test code = 1+ few 477) TEAR DROP CELLS (BEAKER) (test 1+ few code = 481) STOMATOCYTES (BEAKER) (test code 1+ few = 479) ABRAN CELLS (BEAKER) (test code = 1+ few 474) BASOPHILIC STIPPLING (BEAKER) Present (test code = 473) ARTIFACT (CELLAVISION)(BEAKER) Present (test code = 3432) PLATELET CONCENTRATION Adequate (CELLAVISION)(BEAKER) (test code = 3438) Received comment: User comments: Slide comments: WBC: SEGMENTED WITH TOXIC GRANULATIONS PRESENTBASIC METABOLIC [id number] 04:47:00 Test Item Value Reference Range Interpretation Comments SODIUM (BEAKER) 142 meq/L 136-145 (test code = 381) POTASSIUM (BEAKER) 3.5 meq/L 3.5-5.1 (test code = 379) CHLORIDE (BEAKER) 107 meq/L 98-107 (test code = 382) CO2 (BEAKER) (test 31 meq/L 22-29 H code = 355) BLOOD UREA NITROGEN 14 mg/dL 7-21 (BEAKER) (test code = 354) CREATININE (BEAKER) 0.62 mg/dL 0.57-1.25 (test code = 358) GLUCOSE RANDOM 129 mg/dL 70-105 H (BEAKER) (test code = 652) CALCIUM (BEAKER) 7.7 mg/dL 8.4-10.2 L (test code = 697) EGFR (BEAKER) (test 136 mL/min/1.73 ESTIM ATED GFR IS code = 1092) sq m NOT ACCURATE CREATININE CLEARANCE IN PREDICTING GLOMERULAR FILTRATION RATE . ESTIMATED GFR I S NOT APPLICABLE FOR DIALYSIS PATIEN TS. URINALYSIS W/ REFLEX URINE [id number] 12:15:00 Test Item Value Reference Range Interpretation Comments COLOR (BEAKER) (test code = 470) Yellow CLARITY (BEAKER) (test code = 469) Hazy SPECIFIC GRAVITY UA (BEAKER) (test 1.014 1.001-1.035 code = 468) PH UA (BEAKER) (test code = 467) 7.5 5.0-8.0 PROTEIN UA (BEAKER) (test code = Negative Negative 464) GLUCOSE UA (BEAKER) (test code = Negative Negative 365) KETONES UA (BEAKER) (test code = Negative Negative 371) BILIRUBIN UA (BEAKER) (test code = Negative Negative 462) BLOOD UA (BEAKER) (test code = 461) Negative Negative NITRITE UA (BEAKER) (test code = Negative Negative 465) LEUKOCYTE ESTERASE UA (BEAKER) Negative Negative (test code = 466) UROBILINOGEN UA (BEAKER) (test code 0.2 mg/dL 0.2-1.0 = 463) RBC UA (BEAKER) (test code = 519) 1 /HPF WBC UA (BEAKER) (test code = 520) 1 /HPF MUCUS (BEAKER) (test code = 1574) Rare CALCIUM OXALATE CRYSTALS (BEAKER) Rare (test code = 518) AMORPHOUS CRYSTALS (BEAKER) (test Rare code = 1584) SOURCE(BEAKER) (test code = 2795) CBC W/PLT COUNT & AUTO [id number] 08:39:00 Test Item Value Reference Range Interpretation Comments WHITE BLOOD CELL COUNT (BEAKER) 31.9 K/ L 3.5-10.5 H (test code = 775) RED BLOOD CELL COUNT (BEAKER) 3.12 M/ L 4.63-6.08 L (test code = 761) HEMOGLOBIN (BEAKER) (test code = 9.2 GM/DL 13.7-17.5 L 410) HEMATOCRIT (BEAKER) (test code = 29.7 % 40.1-51.0 L 411) MEAN CORPUSCULAR VOLUME (BEAKER) 95.2 fL 79.0-92.2 H (test code = 753) MEAN CORPUSCULAR HEMOGLOBIN 29.5 pg 25.7-32.2 (BEAKER) (test code = 751) MEAN CORPUSCULAR HEMOGLOBIN CONC 31.0 GM/DL 32.3-36.5 L (BEAKER) (test code = 752) RED CELL DISTRIBUTION WIDTH 23.9 % 11.6-14.4 H (BEAKER) (test code = 412) PLATELET COUNT (BEAKER) (test 386 K/CU MM 150-450 code = 756) MEAN PLATELET VOLUME (BEAKER) 9.8 fL 9.4-12.4 (test code = 754) NUCLEATED RED BLOOD CELLS 1 /100 WBC 0-0 H (BEAKER) (test code = 413) (CELLAVISION MANUAL DIFF)2019-07-13 08:39:00 Test Item Value Reference Range Interpretation Comments NEUTROPHILS - REL 80 % (CELLAVISION)(BEAKER) (test code = 2816) LYMPHOCYTES - REL 7 % (CELLAVISION)(BEAKER) (test code = 2817) MONOCYTES - REL 10 % (CELLAVISION)(BEAKER) (test code = 2818) MYELOCYTES - REL 1 % 0-0 H (CELLAVISION)(BEAKER) (test code = 2822) ATYPICAL LYMPHOCYTES - REL 2 % 0-0 H (CELLAVISION)(BEAKER) (test code = 2829) NEUTROPHILS - ABS 25.52 K/ul 1.78-5.38 H (CELLAVISION)(BEAKER) (test code = 2830) LYMPHOCYTES - ABS 2.23 K/ul 1.32-3.57 (CELLAVISION)(BEAKER) (test code = 2831) MONOCYTES - ABS 3.19 K/uL 0.30-0.82 H (CELLAVISION)(BEAKER) (test code = 2832) MYELOCYTES-ABS 0.32 K/uL 0.00-0.00 H (CELLAVISION)(BEAKER) (test code = 2837) ATYPICAL LYMPHOCYTES - ABS 0.64 K/uL 0.00-0.00 H (CELLAVISION)(BEAKER) (test code = 2858) TOTAL COUNTED (BEAKER) (test code 100 = 1351) WBC MORPHOLOGY (BEAKER) (test code Normal = 487) PLT MORPHOLOGY (BEAKER) (test code Normal = 486) ANISOCYTOSIS (BEAKER) (test code = 1+ few 961) POIKILOCYTES (BEAKER) (test code = 1+ few 966) ARTIFACT (CELLAVISION)(BEAKER) Present (test code = 3432) PLATELET CONCENTRATION Adequate (CELLAVISION)(BEAKER) (test code = 3438) Received comment: User comments: Slide comments:BASIC METABOLIC [id number] 05:58:00 Test Item Value Reference Range Interpretation Comments SODIUM (BEAKER) 142 meq/L 136-145 (test code = 381) POTASSIUM (BEAKER) 3.6 meq/L 3.5-5.1 (test code = 379) CHLORIDE (BEAKER) 107 meq/L 98-107 (test code = 382) CO2 (BEAKER) (test 31 meq/L 22-29 H code = 355) BLOOD UREA NITROGEN 14 mg/dL 7-21 (BEAKER) (test code = 354) CREATININE (BEAKER) 0.58 mg/dL 0.57-1.25 (test code = 358) GLUCOSE RANDOM 113 mg/dL 70-105 H (BEAKER) (test code = 652) CALCIUM (BEAKER) 7.9 mg/dL 8.4-10.2 L (test code = 697) EGFR (SIOBHAN) (test 147 mL/min/1.73 ESTIM ATED GFR IS code = 1092) sq m NOT ACCURATE CREATININE CLEARANCE IN PREDICTING GLOMERULAR FILTRATION RATE . ESTIMATED GFR I S NOT APPLICABLE FOR DIALYSIS PATIEN TS. RAD, HIP, 2 VIEWS, [id number] 01:46:00Reason for exam:->total hip arthoplasty with persistent [...] cell scan or MRI is recommended. Signed: Abhi Snyder MDReport Verified Date/Time: 07/13/2019 01:46:35 Reading Location: [address] Reading Room RAD, KNEE, 3 VIEWS, [id number] 01:45:00Reason for exam:->hardware with leukocytosis FINAL REPORT CLINICAL HISTORY: Leukocytosis COMPARISON: None. FINDINGS: [...] clinical onset. If of further clinical concern, three- phase bone scan, nuclear medicine white blood cell scan or MRI is recommended. Signed: Abhi Snyder MDReport Verified Date/Time: 07/13/2019 01:45:04 Reading Location: [address] Reading Room RAD, KNEE, 3 VIEWS, [id number] 01:43:00 Reason for exam:->leukocytosisFINAL REPORT CLINICAL HISTORY: Leukocytosis COMPARISON: [...] clinical onset. If of further clinical concern, three- phase bone scan, nuclear medicine tagged white blood cell scan or MRI is recommended. Signed: Abhi Snyder MDReport Verified Date/Time: 07/13/2019 01:43:49 Reading Location: [address] Reading Room RAD, CHEST, 1 VIEW, NON [id number] 01:42:00Reason for exam:->leukocytosisShould this be performed at [...] clips overlie the right upper quadrant. Signed: Abhi Snyder MDReport Verified Date/Time: 07/13/2019 01:42:05 Reading Location: [address] Reading Room RAD, HIP, 2 VIEWS, [id number] 01:40:00Reason for exam:->total hip arthoplasty with persistent leukocytosisFINAL [...] in the pelvis and left leg. Signed: Abhi Snyder MDReport Verified Date/Time: 07/13/2019 01:40:58 Reading Location: [address] Reading Room CBC W/PLT COUNT & AUTO [id number] 10:58:00 Test Item Value Reference Range Interpretation Comments WHITE BLOOD CELL COUNT (BEAKER) 30.9 K/ L 3.5-10.5 H (test code = 775) RED BLOOD CELL COUNT (BEAKER) 3.01 M/ L 4.63-6.08 L (test code = 761) HEMOGLOBIN (BEAKER) (test code = 9.0 GM/DL 13.7-17.5 L 410) HEMATOCRIT (BEAKER) (test code = 28.0 % 40.1-51.0 L 411) MEAN CORPUSCULAR VOLUME (BEAKER) 93.0 fL 79.0-92.2 H (test code = 753) MEAN CORPUSCULAR HEMOGLOBIN 29.9 pg 25.7-32.2 (BEAKER) (test code = 751) MEAN CORPUSCULAR HEMOGLOBIN CONC 32.1 GM/DL 32.3-36.5 L (BEAKER) (test code = 752) RED CELL DISTRIBUTION WIDTH 23.9 % 11.6-14.4 H (BEAKER) (test code = 412) PLATELET COUNT (BEAKER) (test 345 K/CU MM 150-450 code = 756) MEAN PLATELET VOLUME (BEAKER) 9.4 fL 9.4-12.4 (test code = 754) NUCLEATED RED BLOOD CELLS 1 /100 WBC 0-0 H (BEAKER) (test code = 413) (CELLAVISION MANUAL DIFF)2019-07-12 10:58:00 Test Item Value Reference Range Interpretation Comments NEUTROPHILS - REL 89 % (CELLAVISION)(BEAKER) (test code = 2816) LYMPHOCYTES - REL 2 % (CELLAVISION)(BEAKER) (test code = 2817) MONOCYTES - REL 5 % (CELLAVISION)(BEAKER) (test code = 2818) MYELOCYTES - REL 1 % 0-0 H (CELLAVISION)(BEAKER) (test code = 2822) BANDS - REL (CELLAVISION)(BEAKER) 3 % 0-10 (test code = 2826) NEUTROPHILS - ABS 27.50 K/ul 1.78-5.38 H (CELLAVISION)(BEAKER) (test code = 2830) LYMPHOCYTES - ABS 0.62 K/ul 1.32-3.57 L (CELLAVISION)(BEAKER) (test code = 2831) MONOCYTES - ABS 1.55 K/uL 0.30-0.82 H (CELLAVISION)(BEAKER) (test code = 2832) MYELOCYTES-ABS 0.31 K/uL 0.00-0.00 H (CELLAVISION)(BEAKER) (test code = 2837) BANDS - ABS (CELLAVISION)(BEAKER) 0.93 K/uL 0.00-0.80 H (test code = 2840) TOTAL COUNTED (BEAKER) (test code 100 = 1351) WBC MORPHOLOGY (BEAKER) (test Normal code = 487) GIANT PLATELETS (BEAKER) (test Present code = 313) LARGE PLT(BEAKER) (test code = Present 2156) POLYCHROMATOPHILLIC RBCS(BEAKER) 2+ moderate (test code = 478) HYPOCHROMIA (BEAKER) (test code = 1+ few 963) ANISOCYTOSIS (BEAKER) (test code 2+ moderate = 961) MICROCYTES (BEAKER) (test code = 1+ few 965) MACROCYTES (BEAKER) (test code = 2+ moderate 964) POIKILOCYTES (BEAKER) (test code 1+ few = 966) ELLIPTOCYTES (BEAKER) (test code 1+ few = 962) OVALOCYTES (BEAKER) (test code = 1+ few 477) ABRAN CELLS (BEAKER) (test code = 1+ few 474) BASOPHILIC STIPPLING (BEAKER) Present (test code = 473) ARTIFACT (CELLAVISION)(BEAKER) Present (test code = 3432) PLATELET CONCENTRATION Adequate (CELLAVISION)(BEAKER) (test code = 3438) Received comment: User comments: Slide comments:BLOOD [id number] 08:01:00 Test Item Value Reference Range Interpretation Comments CULTURE (BEAKER) (test No growth in 5 days code = 1095) BLOOD [id number] 08:01:00 Test Item Value Reference Range Interpretation Comments CULTURE (BEAKER) (test No growth in 5 days code = 1095) BASIC METABOLIC [id number] 05:59:00 Test Item Value Reference Range Interpretation Comments SODIUM (BEAKER) 143 meq/L 136-145 (test code = 381) POTASSIUM (BEAKER) 3.6 meq/L 3.5-5.1 (test code = 379) CHLORIDE (BEAKER) 110 meq/L 98-107 H (test code = 382) CO2 (BEAKER) (test 30 meq/L 22-29 H code = 355) BLOOD UREA NITROGEN 11 mg/dL 7-21 (BEAKER) (test code = 354) CREATININE (BEAKER) 0.62 mg/dL 0.57-1.25 (test code = 358) GLUCOSE RANDOM 133 mg/dL 70-105 H (BEAKER) (test code = 652) CALCIUM (BEAKER) 7.8 mg/dL 8.4-10.2 L (test code = 697) EGFR (BEAKER) (test 136 mL/min/1.73 ESTIM ATED GFR IS code = 1092) sq m NOT ACCURATE CREATININE CLEARANCE IN PREDICTING GLOMERULAR FILTRATION RATE . ESTIMATED GFR I S NOT APPLICABLE FOR DIALYSIS PATIEN TS. CBC W/PLT COUNT & AUTO [id number] 11:34:00 Test Item Value Reference Range Interpretation Comments WHITE BLOOD CELL COUNT (BEAKER) 29.2 K/ L 3.5-10.5 H (test code = 775) RED BLOOD CELL COUNT (BEAKER) 3.17 M/ L 4.63-6.08 L (test code = 761) HEMOGLOBIN (BEAKER) (test code = 9.1 GM/DL 13.7-17.5 L 410) HEMATOCRIT (BEAKER) (test code = 29.7 % 40.1-51.0 L 411) MEAN CORPUSCULAR VOLUME (BEAKER) 93.7 fL 79.0-92.2 H (test code = 753) MEAN CORPUSCULAR HEMOGLOBIN 28.7 pg 25.7-32.2 (BEAKER) (test code = 751) MEAN CORPUSCULAR HEMOGLOBIN CONC 30.6 GM/DL 32.3-36.5 L (BEAKER) (test code = 752) RED CELL DISTRIBUTION WIDTH 23.7 % 11.6-14.4 H (BEAKER) (test code = 412) PLATELET COUNT (BEAKER) (test 297 K/CU MM 150-450 code = 756) MEAN PLATELET VOLUME (BEAKER) 10.5 fL 9.4-12.4 (test code = 754) NUCLEATED RED BLOOD CELLS 0 /100 WBC 0-0 (BEAKER) (test code = 413) (CELLAVISION MANUAL DIFF)2019-07-11 11:34:00 Test Item Value Reference Range Interpretation Comments NEUTROPHILS - REL 83 % (CELLAVISION)(BEAKER) (test code = 2816) LYMPHOCYTES - REL 7 % (CELLAVISION)(BEAKER) (test code = 2817) MONOCYTES - REL 5 % (CELLAVISION)(BEAKER) (test code = 2818) METAMYELOCYTES - REL 3 % 0-0 H (CELLAVISION)(BEAKER) (test code = 2821) MYELOCYTES - REL 2 % 0-0 H (CELLAVISION)(BEAKER) (test code = 2822) NEUTROPHILS - ABS 24.24 K/ul 1.78-5.38 H (CELLAVISION)(BEAKER) (test code = 2830) LYMPHOCYTES - ABS 2.04 K/ul 1.32-3.57 (CELLAVISION)(BEAKER) (test code = 2831) MONOCYTES - ABS 1.46 K/uL 0.30-0.82 H (CELLAVISION)(BEAKER) (test code = 2832) METAMYELOCYTES - ABS 0.88 K/uL 0.00-0.00 H (CELLAVISION)(BEAKER) (test code = 2836) MYELOCYTES-ABS 0.58 K/uL 0.00-0.00 H (CELLAVISION)(BEAKER) (test code = 2837) TOTAL COUNTED (BEAKER) (test code 100 = 1351) WBC MORPHOLOGY (BEAKER) (test Normal code = 487) PLT MORPHOLOGY (BEAKER) (test Normal code = 486) POLYCHROMATOPHILLIC RBCS(BEAKER) 2+ moderate (test code = 478) ANISOCYTOSIS (BEAKER) (test code 1+ few = 961) MACROCYTES (BEAKER) (test code = 1+ few 964) POIKILOCYTES (BEAKER) (test code 3+ many = 966) ABRAN CELLS (BEAKER) (test code = 1+ few 474) ARTIFACT (CELLAVISION)(BEAKER) Present (test code = 3432) PLATELET CONCENTRATION Adequate (CELLAVISION)(BEAKER) (test code = 3438) Received comment: User comments: Slide comments:[id number] 06:55:00 Test Item Value Reference Range Interpretation Comments PROCALCITONIN (BEAKER) (test code 0.61 ng/mL <0.05 H = 3036) SEPSIS RISK (ng/mL)Low: 0.05-0.50Intermediate: 0.51-2.00High: >=2.01BASI METABOLIC [id number] 06:43:00 Test Item Value Reference Range Interpretation Comments SODIUM (BEAKER) 140 meq/L 136-145 (test code = 381) POTASSIUM (BEAKER) 4.0 meq/L 3.5-5.1 (test code = 379) CHLORIDE (BEAKER) 110 meq/L 98-107 H (test code = 382) CO2 (BEAKER) (test 27 meq/L 22-29 code = 355) BLOOD UREA NITROGEN 8 mg/dL 7-21 (BEAKER) (test code = 354) CREATININE (BEAKER) 0.60 mg/dL 0.57-1.25 (test code = 358) GLUCOSE RANDOM 135 mg/dL 70-105 H (BEAKER) (test code = 652) CALCIUM (BEAKER) 7.7 mg/dL 8.4-10.2 L (test code = 697) EGFR (BEAKER) (test 141 mL/min/1.73 ESTIM ATED GFR IS code = 1092) sq m NOT ACCURATE CREATININE CLEARANCE IN PREDICTING GLOMERULAR FILTRATION RATE . ESTIMATED GFR I S NOT APPLICABLE FOR DIALYSIS PATIEN TS. [id number] 06:36:00 Test Item Value Reference Range Interpretation Comments MAGNESIUM (BEAKER) (test code = 2.0 mg/dL 1.6-2.6 627) [id number] 06:36:00 Test Item Value Reference Range Interpretation Comments ALBUMIN (BEAKER) (test code = 1145) 2.3 g/dL 3.5-5.0 L CALCIUM, [id number] 05:32:00 Test Item Value Reference Range Interpretation Comments CALCIUM IONIZED (BEAKER) (test 1.09 mmol/L 1.12-1.27 L code = 698) PH, BLOOD (BEAKER) (test code = 7.42 1810) [id number] 13:34:00 Test Item Value Reference Range Interpretation Comments POTASSIUM (BEAKER) (test code = 3.6 meq/L 3.5-5.1 379) HEMOGLOBIN AND [id number] 12:50:00 Test Item Value Reference Range Interpretation Comments HEMOGLOBIN (BEAKER) (test code = 9.1 GM/DL 13.7-17.5 L 410) HEMATOCRIT (BEAKER) (test code = 29.0 % 40.1-51.0 L 411) MRSA [id number] 11:38:00 Test Item Value Reference Range Interpretation Comments CULTURE (BEAKER) (test code No MRSA isolated = 1095) POCT-GLUCOSE [id number] 06:38:00 Test Item Value Reference Range Interpretation Comments POC-GLUCOSE METER 134 mg/dL 70-[address] [facility] 67[address] (BEAKER) (test code = [place] 1538) [address] BASIC METABOLIC [id number] 05:06:00 Test Item Value Reference Range Interpretation Comments SODIUM (BEAKER) 140 meq/L 136-145 (test code = 381) POTASSIUM (BEAKER) 3.5 meq/L 3.5-5.1 (test code = 379) CHLORIDE (BEAKER) 111 meq/L 98-107 H (test code = 382) CO2 (BEAKER) (test 28 meq/L 22-29 code = 355) BLOOD UREA NITROGEN 6 mg/dL 7-21 L (BEAKER) (test code = 354) CREATININE (BEAKER) 0.62 mg/dL 0.57-1.25 (test code = 358) GLUCOSE RANDOM 141 mg/dL 70-105 H (BEAKER) (test code = 652) CALCIUM (BEAKER) 7.4 mg/dL 8.4-10.2 L (test code = 697) EGFR (BEAKER) (test 136 mL/min/1.73 ESTIM ATED GFR IS code = 1092) sq m NOT ACCURATE CREATININE CLEARANCE IN PREDICTING GLOMERULAR FILTRATION RATE . ESTIMATED GFR I S NOT APPLICABLE FOR DIALYSIS PATIEN TS. [id number] 05:02:00 Test Item Value Reference Range Interpretation Comments MAGNESIUM (BEAKER) (test code = 2.0 mg/dL 1.6-2.6 627) CBC W/PLT COUNT & AUTO [id number] 04:53:00 Test Item Value Reference Range Interpretation Comments WHITE BLOOD CELL COUNT (BEAKER) 25.6 K/ L 3.5-10.5 H (test code = 775) RED BLOOD CELL COUNT (BEAKER) 2.94 M/ L 4.63-6.08 L (test code = 761) HEMOGLOBIN (BEAKER) (test code = 8.4 GM/DL 13.7-17.5 L 410) HEMATOCRIT (BEAKER) (test code = 26.7 % 40.1-51.0 L 411) MEAN CORPUSCULAR VOLUME (BEAKER) 90.8 fL 79.0-92.2 (test code = 753) MEAN CORPUSCULAR HEMOGLOBIN 28.6 pg 25.7-32.2 (BEAKER) (test code = 751) MEAN CORPUSCULAR HEMOGLOBIN CONC 31.5 GM/DL 32.3-36.5 L (BEAKER) (test code = 752) RED CELL DISTRIBUTION WIDTH 22.5 % 11.6-14.4 H (BEAKER) (test code = 412) PLATELET COUNT (BEAKER) (test 239 K/CU MM 150-450 code = 756) MEAN PLATELET VOLUME (BEAKER) 10.0 fL 9.4-12.4 (test code = 754) NUCLEATED RED BLOOD CELLS 0 /100 WBC 0-0 (BEAKER) (test code = 413) NEUTROPHILS RELATIVE PERCENT 86 % (BEAKER) (test code = 429) LYMPHOCYTES RELATIVE PERCENT 5 % (BEAKER) (test code = 430) MONOCYTES RELATIVE PERCENT 6 % (BEAKER) (test code = 431) EOSINOPHILS RELATIVE PERCENT 0 % (BEAKER) (test code = 432) BASOPHILS RELATIVE PERCENT 0 % (BEAKER) (test code = 437) NEUTROPHILS ABSOLUTE COUNT 21.92 K/ L 1.78-5.38 H (BEAKER) (test code = 670) LYMPHOCYTES ABSOLUTE COUNT 1.14 K/ L 1.32-3.57 L (BEAKER) (test code = 414) MONOCYTES ABSOLUTE COUNT (BEAKER) 1.64 K/ L 0.30-0.82 H (test code = 415) EOSINOPHILS ABSOLUTE COUNT 0.01 K/ L 0.04-0.54 L (BEAKER) (test code = 416) BASOPHILS ABSOLUTE COUNT (BEAKER) 0.04 K/ L 0.01-0.08 (test code = 417) IMMATURE GRANULOCYTES-RELATIVE 3 % 0-1 H PERCENT (BEAKER) (test code = 2801) POCT-GLUCOSE [id number] 00:09:00 Test Item Value Reference Range Interpretation Comments POC-GLUCOSE METER 181 mg/dL 70-110 H [facility] [place] [address] [facility] (test code = [facility] 1538) [id number] POCT-GLUCOSE [id number] 19:24:00 Test Item Value Reference Range Interpretation Comments POC-GLUCOSE METER 121 mg/dL 70-110 H TESTED AT [place] [address] ([facility]) (test code = [facility] 1538) [id number] LACTIC ACID, [id number] 16:46:00 Test Item Value Reference Range Interpretation Comments LACTATE BLOOD VENOUS (2) (BEAKER) 1.9 mmol/L 0.5-2.2 (test code = 2872) HEMOGLOBIN AND [id number] 16:36:00 Test Item Value Reference Range Interpretation Comments HEMOGLOBIN (BEAKER) (test code = 8.0 GM/DL 13.7-17.5 L 410) HEMATOCRIT (BEAKER) (test code = 24.5 % 40.1-51.0 L 411) CBC W/PLT COUNT & AUTO [id number] 16:02:00 Test Item Value Reference Range Interpretation Comments WHITE BLOOD CELL COUNT (BEAKER) 22.0 K/ L 3.5-10.5 H (test code = 775) RED BLOOD CELL COUNT (BEAKER) 2.92 M/ L 4.63-6.08 L (test code = 761) HEMOGLOBIN (BEAKER) (test code = 8.3 GM/DL 13.7-17.5 L 410) HEMATOCRIT (BEAKER) (test code = 26.4 % 40.1-51.0 L 411) MEAN CORPUSCULAR VOLUME (BEAKER) 90.4 fL 79.0-92.2 (test code = 753) MEAN CORPUSCULAR HEMOGLOBIN 28.4 pg 25.7-32.2 (BEAKER) (test code = 751) MEAN CORPUSCULAR HEMOGLOBIN CONC 31.4 GM/DL 32.3-36.5 L (BEAKER) (test code = 752) RED CELL DISTRIBUTION WIDTH 22.1 % 11.6-14.4 H (BEAKER) (test code = 412) PLATELET COUNT (BEAKER) (test 220 K/CU MM 150-450 code = 756) MEAN PLATELET VOLUME (BEAKER) 9.7 fL 9.4-12.4 (test code = 754) NUCLEATED RED BLOOD CELLS 0 /100 WBC 0-0 (BEAKER) (test code = 413) NEUTROPHILS RELATIVE PERCENT 88 % (BEAKER) (test code = 429) LYMPHOCYTES RELATIVE PERCENT 3 % (BEAKER) (test code = 430) MONOCYTES RELATIVE PERCENT 5 % (BEAKER) (test code = 431) EOSINOPHILS RELATIVE PERCENT 0 % (BEAKER) (test code = 432) BASOPHILS RELATIVE PERCENT 0 % (BEAKER) (test code = 437) NEUTROPHILS ABSOLUTE COUNT 19.36 K/ L 1.78-5.38 H (BEAKER) (test code = 670) LYMPHOCYTES ABSOLUTE COUNT 0.72 K/ L 1.32-3.57 L (BEAKER) (test code = 414) MONOCYTES ABSOLUTE COUNT (BEAKER) 1.15 K/ L 0.30-0.82 H (test code = 415) EOSINOPHILS ABSOLUTE COUNT 0.06 K/ L 0.04-0.54 (BEAKER) (test code = 416) BASOPHILS ABSOLUTE COUNT (BEAKER) 0.04 K/ L 0.01-0.08 (test code = 417) IMMATURE GRANULOCYTES-RELATIVE 3 % 0-1 H PERCENT (BEAKER) (test code = 9767) BASIC METABOLIC [id number] 12:32:00 Test Item Value Reference Range Interpretation Comments SODIUM (BEAKER) 139 meq/L 136-145 (test code = 381) POTASSIUM (BEAKER) 3.8 meq/L 3.5-5.1 (test code = 379) CHLORIDE (BEAKER) 112 meq/L 98-107 H (test code = 382) CO2 (BEAKER) (test 24 meq/L 22-29 code = 355) BLOOD UREA NITROGEN 4 mg/dL 7-21 L (BEAKER) (test code = 354) CREATININE (BEAKER) 0.64 mg/dL 0.57-1.25 (test code = 358) GLUCOSE RANDOM 131 mg/dL 70-105 H (BEAKER) (test code = 652) CALCIUM (BEAKER) 7.1 mg/dL 8.4-10.2 L (test code = 697) EGFR (BEAKER) (test 131 mL/min/1.73 ESTIM ATED GFR IS code = 1092) sq m NOT ACCURATE CREATININE CLEARANCE IN PREDICTING GLOMERULAR FILTRATION RATE . ESTIMATED GFR I S NOT APPLICABLE FOR DIALYSIS PATIEN TS. POCT-GLUCOSE [id number] 12:08:00 Test Item Value Reference Range Interpretation Comments POC-GLUCOSE METER 175 mg/dL 70-[address] [facility] [address] (BEAKER) (test code = [place] 1538) [id number] HEMOGLOBIN AND [id number] 12:07:00 Test Item Value Reference Range Interpretation Comments HEMOGLOBIN (BEAKER) (test code = 8.5 GM/DL 13.7-17.5 L 410) HEMATOCRIT (BEAKER) (test code = 26.4 % 40.1-51.0 L 411) [id number] 11:16:00 Test Item Value Reference Range Interpretation Comments MAGNESIUM (BEAKER) (test code = 2.3 mg/dL 1.6-2.6 627) BASIC METABOLIC [id number] 10:18:00 Test Item Value Reference Range Interpretation Comments SODIUM (BEAKER) 141 meq/L 136-145 (test code = 381) POTASSIUM (BEAKER) 3.9 meq/L 3.5-5.1 (test code = 379) CHLORIDE (BEAKER) 113 meq/L 98-107 H (test code = 382) CO2 (BEAKER) (test 26 meq/L 22-29 code = 355) BLOOD UREA NITROGEN 4 mg/dL 7-21 L (BEAKER) (test code = 354) CREATININE (BEAKER) 0.67 mg/dL 0.57-1.25 (test code = 358) GLUCOSE RANDOM 93 mg/dL 70-105 (BEAKER) (test code = 652) CALCIUM (BEAKER) 7.3 mg/dL 8.4-10.2 L (test code = 697) EGFR (BEAKER) (test 125 mL/min/1.73 ESTIM ATED GFR IS code = 1092) sq m NOT ACCURATE CREATININE CLEARANCE IN PREDICTING GLOMERULAR FILTRATION RATE . ESTIMATED GFR I S NOT APPLICABLE FOR DIALYSIS PATIEN TS. VANCOMYCIN LEVEL, [id number] 10:14:00 Test Item Value Reference Range Interpretation Comments VANCOMYCIN TROUGH (BEAKER) (test 5.5 ug/mL 10.0-20.0 L code = 522) CBC (HEMOGRAM ONLY)2019-07-09 09:02:00 Test Item Value Reference Range Interpretation Comments WHITE BLOOD CELL COUNT (BEAKER) 22.4 K/ L 3.5-10.5 H (test code = 775) RED BLOOD CELL COUNT (BEAKER) 2.80 M/ L 4.63-6.08 L (test code = 761) HEMOGLOBIN (BEAKER) (test code = 8.0 GM/DL 13.7-17.5 L 410) HEMATOCRIT (BEAKER) (test code = 25.1 % 40.1-51.0 L 411) MEAN CORPUSCULAR VOLUME (BEAKER) 89.6 fL 79.0-92.2 (test code = 753) MEAN CORPUSCULAR HEMOGLOBIN 28.6 pg 25.7-32.2 (BEAKER) (test code = 751) MEAN CORPUSCULAR HEMOGLOBIN CONC 31.9 GM/DL 32.3-36.5 L (BEAKER) (test code = 752) RED CELL DISTRIBUTION WIDTH 21.8 % 11.6-14.4 H (BEAKER) (test code = 412) PLATELET COUNT (BEAKER) (test 197 K/CU MM 150-450 code = 756) MEAN PLATELET VOLUME (BEAKER) 9.7 fL 9.4-12.4 (test code = 754) NUCLEATED RED BLOOD CELLS 0 /100 WBC 0-0 (BEAKER) (test code = 413) HEMOGLOBIN AND [id number] 08:10:00 Test Item Value Reference Range Interpretation Comments HEMOGLOBIN (BEAKER) (test code = 7.9 GM/DL 13.7-17.5 L 410) HEMATOCRIT (BEAKER) (test code = 24.3 % 40.1-51.0 L 411) POCT-GLUCOSE [id number] 05:56:00 Test Item Value Reference Range Interpretation Comments POC-GLUCOSE METER 113 mg/dL 70-[address] [facility] [address] (BEAKER) (test code = [place] 1538) [id number] BASIC METABOLIC [id number] 04:31:00 Test Item Value Reference Range Interpretation Comments SODIUM (BEAKER) 141 meq/L 136-145 (test code = 381) POTASSIUM (BEAKER) 3.3 meq/L 3.5-5.1 L (test code = 379) CHLORIDE (BEAKER) 112 meq/L 98-107 H (test code = 382) CO2 (BEAKER) (test 27 meq/L 22-29 code = 355) BLOOD UREA NITROGEN 3 mg/dL 7-21 L (BEAKER) (test code = 354) CREATININE (BEAKER) 0.66 mg/dL 0.57-1.25 (test code = 358) GLUCOSE RANDOM 107 mg/dL 70-105 H (BEAKER) (test code = 652) CALCIUM (BEAKER) 6.9 mg/dL 8.4-10.2 L (test code = 697) EGFR (BEAKER) (test 127 mL/min/1.73 ESTIM ATED GFR IS code = 1092) sq m NOT ACCURATE CREATININE CLEARANCE IN PREDICTING GLOMERULAR FILTRATION RATE . ESTIMATED GFR I S NOT APPLICABLE FOR DIALYSIS PATIEN TS. [id number] 04:21:00 Test Item Value Reference Range Interpretation Comments MAGNESIUM (BEAKER) (test code = 2.2 mg/dL 1.6-2.6 627) CBC W/PLT COUNT & AUTO [id number] 04:07:00 Test Item Value Reference Range Interpretation Comments WHITE BLOOD CELL COUNT (BEAKER) 22.9 K/ L 3.5-10.5 H (test code = 775) RED BLOOD CELL COUNT (BEAKER) 3.04 M/ L 4.63-6.08 L (test code = 761) HEMOGLOBIN (BEAKER) (test code = 8.7 GM/DL 13.7-17.5 L 410) HEMATOCRIT (BEAKER) (test code = 26.6 % 40.1-51.0 L 411) MEAN CORPUSCULAR VOLUME (BEAKER) 87.5 fL 79.0-92.2 (test code = 753) MEAN CORPUSCULAR HEMOGLOBIN 28.6 pg 25.7-32.2 (BEAKER) (test code = 751) MEAN CORPUSCULAR HEMOGLOBIN CONC 32.7 GM/DL 32.3-36.5 (BEAKER) (test code = 752) RED CELL DISTRIBUTION WIDTH 21.5 % 11.6-14.4 H (BEAKER) (test code = 412) PLATELET COUNT (BEAKER) (test 199 K/CU MM 150-450 code = 756) MEAN PLATELET VOLUME (BEAKER) 9.4 fL 9.4-12.4 (test code = 754) NUCLEATED RED BLOOD CELLS 0 /100 WBC 0-0 (BEAKER) (test code = 413) NEUTROPHILS RELATIVE PERCENT 86 % (BEAKER) (test code = 429) LYMPHOCYTES RELATIVE PERCENT 5 % (BEAKER) (test code = 430) MONOCYTES RELATIVE PERCENT 6 % (BEAKER) (test code = 431) EOSINOPHILS RELATIVE PERCENT 0 % (BEAKER) (test code = 432) BASOPHILS RELATIVE PERCENT 0 % (BEAKER) (test code = 437) NEUTROPHILS ABSOLUTE COUNT 19.52 K/ L 1.78-5.38 H (BEAKER) (test code = 670) LYMPHOCYTES ABSOLUTE COUNT 1.05 K/ L 1.32-3.57 L (BEAKER) (test code = 414) MONOCYTES ABSOLUTE COUNT (BEAKER) 1.47 K/ L 0.30-0.82 H (test code = 415) EOSINOPHILS ABSOLUTE COUNT 0.03 K/ L 0.04-0.54 L (BEAKER) (test code = 416) BASOPHILS ABSOLUTE COUNT (BEAKER) 0.04 K/ L 0.01-0.08 (test code = 417) IMMATURE GRANULOCYTES-RELATIVE 3 % 0-1 H PERCENT (BEAKER) (test code = 2801) CALCIUM, [id number] 04:00:00 Test Item Value Reference Range Interpretation Comments CALCIUM IONIZED (BEAKER) (test 1.04 mmol/L 1.12-1.27 L code = 698) PH, BLOOD (BEAKER) (test code = 7.40 1810) HEMOGLOBIN AND [id number] 00:26:00 Test Item Value Reference Range Interpretation Comments HEMOGLOBIN (BEAKER) (test code = 7.6 GM/DL 13.7-17.5 L 410) HEMATOCRIT (BEAKER) (test code = 23.0 % 40.1-51.0 L 411) POCT-GLUCOSE [id number] 00:20:00 Test Item Value Reference Range Interpretation Comments POC-GLUCOSE METER 117 mg/dL 70-[address] [facility] [address] ([place]) (test code = [place] 15[address]) [id number] CT, [id number] 19:35:00FINAL REPORT TECHNIQUE: CT of the abdomen [...] up to 0.5 cm. 6.There are several age-indeterminate vertebral compression fractures. These are likely old given the lack of surrounding edema. 7.A right upper pole 1.3 cm renal lesion is indeterminate and could be artifactual. Further evaluation with a CT of the abdomen with and without contrast, renal mass protocol, is recommendedon a nonemergent basis. The findings concerning infection were discussed with Dr. Faye on 07/08/2019 at 7:21 PM. Signed: Oscar Whyte MDReport Verified Date/Time: 07/08/2019 19:35:04 Reading Location: [facility] C013Y CT Body Reading Room POCT-GLUCOSE [id number] 17:58:00 Test Item Value Reference Range Interpretation Comments POC-GLUCOSE METER 121 mg/dL 70-[address] [facility] [address] ([facility]) (test code = [place] [id number] HEMOGLOBIN AND [id number] 16:32:00 Test Item Value Reference Range Interpretation Comments HEMOGLOBIN ([facility]) (test code = 7.5 GM/DL 13.7-17.5 L 410) HEMATOCRIT ([facility]) (test code = 22.9 % 40.1-51.0 L 411) POCT-GLUCOSE [id number] 12:03:00 Test Item Value Reference Range Interpretation Comments POC-GLUCOSE METER 93 mg/dL 70-[address] [facility] [address] (BEAKER) (test code = [place] [id number] 1538) BASIC METABOLIC [id number] 10:27:00 Test Item Value Reference Range Interpretation Comments SODIUM (BEAKER) 138 meq/L 136-145 (test code = 381) POTASSIUM (BEAKER) 3.5 meq/L 3.5-5.1 (test code = 379) CHLORIDE (BEAKER) 113 meq/L 98-107 H (test code = 382) CO2 (BEAKER) (test 23 meq/L 22-29 code = 355) BLOOD UREA NITROGEN 3 mg/dL 7-21 L (BEAKER) (test code = 354) CREATININE (BEAKER) 0.59 mg/dL 0.57-1.25 (test code = 358) GLUCOSE RANDOM 115 mg/dL 70-105 H (BEAKER) (test code = 652) CALCIUM (BEAKER) 7.0 mg/dL 8.4-10.2 L (test code = 697) EGFR (BEAKER) (test 144 mL/min/1.73 ESTIM ATED GFR IS code = 1092) sq m NOT ACCURATE CREATININE CLEARANCE IN PREDICTING GLOMERULAR FILTRATION RATE . ESTIMATED GFR I S NOT APPLICABLE FOR DIALYSIS PATIEN TS. [id number] 10:16:00 Test Item Value Reference Range Interpretation Comments MAGNESIUM (BEAKER) (test code = 1.4 mg/dL 1.6-2.6 L 627) CALCIUM, [id number] 09:50:00 Test Item Value Reference Range Interpretation Comments CALCIUM IONIZED (BEAKER) (test 1.06 mmol/L 1.12-1.27 L code = 698) PH, BLOOD (BEAKER) (test code = 7.47 1810) CBC W/PLT COUNT & AUTO [id number] 09:11:00 Test Item Value Reference Range Interpretation Comments WHITE BLOOD CELL COUNT (BEAKER) 31.6 K/ L 3.5-10.5 H (test code = 775) RED BLOOD CELL COUNT (BEAKER) 2.90 M/ L 4.63-6.08 L (test code = 761) HEMOGLOBIN (BEAKER) (test code = 8.1 GM/DL 13.7-17.5 L 410) HEMATOCRIT (BEAKER) (test code = 25.1 % 40.1-51.0 L 411) MEAN CORPUSCULAR VOLUME (BEAKER) 86.6 fL 79.0-92.2 (test code = 753) MEAN CORPUSCULAR HEMOGLOBIN 27.9 pg 25.7-32.2 (BEAKER) (test code = 751) MEAN CORPUSCULAR HEMOGLOBIN CONC 32.3 GM/DL 32.3-36.5 (BEAKER) (test code = 752) RED CELL DISTRIBUTION WIDTH 20.0 % 11.6-14.4 H (BEAKER) (test code = 412) PLATELET COUNT (BEAKER) (test 138 K/CU MM 150-450 L code = 756) MEAN PLATELET VOLUME (BEAKER) 9.8 fL 9.4-12.4 (test code = 754) NUCLEATED RED BLOOD CELLS 0 /100 WBC 0-0 (BEAKER) (test code = 413) (CELLAVISION MANUAL DIFF)2019-07-08 09:11:00 Test Item Value Reference Range Interpretation Comments NEUTROPHILS - REL 98 % (CELLAVISION)(BEAKER) (test code = 2816) MONOCYTES - REL 1 % (CELLAVISION)(BEAKER) (test code = 2818) METAMYELOCYTES - REL 1 % 0-0 H (CELLAVISION)(BEAKER) (test code = 2821) NEUTROPHILS - ABS 30.97 K/ul 1.78-5.38 H (CELLAVISION)(BEAKER) (test code = 2830) MONOCYTES - ABS 0.32 K/uL 0.30-0.82 (CELLAVISION)(BEAKER) (test code = 2832) METAMYELOCYTES - ABS 0.32 K/uL 0.00-0.00 H (CELLAVISION)(BEAKER) (test code = 2836) TOTAL COUNTED (BEAKER) (test code 100 = 1351) WBC MORPHOLOGY (BEAKER) (test code Normal = 487) PLT MORPHOLOGY (BEAKER) (test code Normal = 486) POLYCHROMATOPHILLIC RBCS(BEAKER) 1+ few (test code = 478) ANISOCYTOSIS (BEAKER) (test code = 1+ few 961) BASOPHILIC STIPPLING (BEAKER) Present (test code = 473) ARTIFACT (CELLAVISION)(BEAKER) Present (test code = 3432) PLATELET CONCENTRATION Decreased (CELLAVISION)(BEAKER) (test code = 3438) Received comment: User comments: Slide comments:POCT-GLUCOSE [id number] 06:28:00 Test Item Value Reference Range Interpretation Comments POC-GLUCOSE METER 108 mg/dL 70-[address] [facility] [address] (BEAKER) (test code = [facility] 1538) [id number] POCT-GLUCOSE [id number] 05:09:00 Test Item Value Reference Range Interpretation Comments POC-GLUCOSE METER 82 mg/dL 70-[address] [facility] [address] (BEAKER) (test code = [facility] [id number]) [id number] 04:07:00 Test Item Value Reference Range Interpretation Comments FERRITIN (BEAKER) (test code = 361) 154 ng/mL 5-275 BASIC METABOLIC [id number] 03:53:00 Test Item Value Reference Range Interpretation Comments SODIUM (BEAKER) 141 meq/L 136-145 (test code = 381) POTASSIUM (BEAKER) 3.4 meq/L 3.5-5.1 L (test code = 379) CHLORIDE (BEAKER) 113 meq/L 98-107 H (test code = 382) CO2 (BEAKER) (test 24 meq/L 22-29 code = 355) BLOOD UREA NITROGEN 3 mg/dL 7-21 L (BEAKER) (test code = 354) CREATININE (BEAKER) 0.57 mg/dL 0.57-1.25 (test code = 358) GLUCOSE RANDOM 96 mg/dL 70-105 (BEAKER) (test code = 652) CALCIUM (BEAKER) 7.2 mg/dL 8.4-10.2 L (test code = 697) EGFR (BEAKER) (test 150 mL/min/1.73 ESTIM ATED GFR IS code = 1092) sq m NOT ACCURATE CREATININE CLEARANCE IN PREDICTING GLOMERULAR FILTRATION RATE . ESTIMATED GFR I S NOT APPLICABLE FOR DIALYSIS PATIEN TS. HEPATIC FUNCTION [id number] 03:51:00 Test Item Value Reference Range Interpretation Comments TOTAL PROTEIN (BEAKER) (test code = 3.6 gm/dL 6.0-8.3 L 770) ALBUMIN (BEAKER) (test code = 1145) 2.0 g/dL 3.5-5.0 L BILIRUBIN TOTAL (BEAKER) (test code 0.9 mg/dL 0.2-1.2 = 377) BILIRUBIN DIRECT (BEAKER) (test 0.5 mg/dL 0.1-0.5 code = 706) ALKALINE PHOSPHATASE (BEAKER) (test 42 U/L 40-150 code = 346) AST (SGOT) (BEAKER) (test code = 11 U/L 5-34 353) ALT (SGPT) (BEAKER) (test code = 9 U/L 6-55 347) LACTIC ACID, [id number] 03:48:00 Test Item Value Reference Range Interpretation Comments LACTATE BLOOD ARTERIAL (2) 0.8 mmol/L 0.5-2.2 (BEAKER) (test code = 2874) PROTHROMBIN [id number] 03:43:00 Test Item Value Reference Range Interpretation Comments PROTIME (BEAKER) (test code = 16.4 seconds 11.9-14.2 H 759) INR (BEAKER) (test code = 370) 1.4 <=5.9 Effective 04/02/2019: PT Reference Range ChangeNew: 11.9-14.2 Previous: 11.7- 14.7RECOMMENDED COUMADIN/WARFARIN INR THERAPY RANGESSTANDARD DOSE: 2.0-3.0 Includes: PROPHYLAXIS for venous thrombosis, systemic embolization; TREATMENT for venous thrombosis and/or pulmonary embolus.HIGH RISK: Target INR is2.5-3.5 for patients wiht mechanical heart valves.HEMOGLOBIN AND [id number] 03:32:00 Test Item Value Reference Range Interpretation Comments HEMOGLOBIN (BEAKER) (test code = 8.1 GM/DL 13.7-17.5 L 410) HEMATOCRIT (BEAKER) (test code = 24.3 % 40.1-51.0 L 411) HEMOGLOBIN AND [id number] 22:53:00 Test Item Value Reference Range Interpretation Comments HEMOGLOBIN (BEAKER) (test code = 7.9 GM/DL 13.7-17.5 L 410) HEMATOCRIT (BEAKER) (test code = 23.8 % 40.1-51.0 L 411) [id number] 19:45:00 Test Item Value Reference Range Interpretation Comments PROTIME (BEAKER) (test code = 16.5 seconds 11.9-14.2 H 759) INR (BEAKER) (test code = 370) 1.4 <=5.9 PARTIAL THROMBOPLASTIN TIME 30.9 seconds 22.5-36.0 (BEAKER) (test code = 760) Effective 04/02/2019: PT Reference Range ChangeNew: 11.9-14.2 Previous: 11.7- 14.7RECOMMENDED COUMADIN/WARFARIN INR THERAPY RANGESSTANDARD DOSE: 2.0-3.0 Includes: PROPHYLAXIS for venous thrombosis, systemic embolization; TREATMENT for venous thrombosis and/or pulmonary embolus.HIGH RISK: Target INR is2.5-3.5 for patients wiht mechanical heart valves.POCT-GLUCOSE [id number] 19:33:00 Test Item Value Reference Range Interpretation Comments POC-GLUCOSE METER 101 mg/dL 70-[address] [facility] [address] (BEAKER) (test code = [place] [facility] 1538) [id number] CALCIUM, [id number] 18:17:00 Test Item Value Reference Range Interpretation Comments CALCIUM IONIZED (BEAKER) (test 1.08 mmol/L 1.12-1.27 L code = 698) PH, BLOOD (BEAKER) (test code = 7.37 1810) BLOOD GAS, [id number] 18:15:00 Test Item Value Reference Range Interpretation Comments PH ARTERIAL (BEAKER) (test code = 7.37 7.35-7.45 383) PCO2 ARTERIAL (BEAKER) (test code 36 mmHg 35-45 = 384) PO2 ARTERIAL (BEAKER) (test code 149 mmHg 80-90 H = 385) O2 SATURATION ARTERIAL (BEAKER) 98.9 % 96.0-97.0 H (test code = 386) HCO3 ARTERIAL (BEAKER) (test code 20 mmol/L 21-29 L = 388) BASE EXCESS ARTERIAL (BEAKER) -4.5 mmol/L -2.0-3.0 L (test code = 387) PATIENT TEMPERATURE (BEAKER) 37.0 C (test code = 1818) FIO2 (BEAKER) (test code = 1819) 100.0 % POTASSIUM-STAT [id number] 18:15:00 Test Item Value Reference Range Interpretation Comments POTASSIUM (BEAKER) (test code = 3.3 meq/L 3.6-5.5 L 379) GLUCOSE-STAT [id number] 18:15:00 Test Item Value Reference Range Interpretation Comments GLUCOSE RANDOM (BEAKER) (test code 138 mg/dL 70-110 H = 652) HGB/HCT (H&H) - STAT [id number] 18:15:00 Test Item Value Reference Range Interpretation Comments HEMOGLOBIN (BEAKER) (test code = 8.7 g/dL 13.0-16.8 L 410) HEMATOCRIT (BEAKER) (test code = 26.0 % 40.0-50.0 L 411) SODIUM NA-STAT [id number] 18:13:00 Test Item Value Reference Range Interpretation Comments SODIUM (BEAKER) (test code = 381) 137 meq/L 135-148 LACTIC ACID, [id number] 16:40:00 Test Item Value Reference Range Interpretation Comments LACTATE BLOOD ARTERIAL (2) 1.4 mmol/L 0.5-2.2 (BEAKER) (test code = 2874) HEMOGLOBIN AND [id number] 16:24:00 Test Item Value Reference Range Interpretation Comments HEMOGLOBIN (BEAKER) (test code = 7.5 GM/DL 13.7-17.5 L 410) HEMATOCRIT (BEAKER) (test code = 22.6 % 40.1-51.0 L 411) HGB/HCT (H&H) - STAT [id number] 15:47:00 Test Item Value Reference Range Interpretation Comments HEMOGLOBIN (BEAKER) (test code = 9.1 g/dL 13.0-16.8 L 410) HEMATOCRIT (BEAKER) (test code = 27.0 % 40.0-50.0 L 411) BLOOD GAS, [id number] 12:36:00 Test Item Value Reference Range Interpretation Comments PH ARTERIAL (BEAKER) (test code = 7.40 7.35-7.45 383) PCO2 ARTERIAL (BEAKER) (test code 45 mmHg 35-45 = 384) PO2 ARTERIAL (BEAKER) (test code = 34 mmHg 80-90 LL 385) O2 SATURATION ARTERIAL (BEAKER) 67.7 % 96.0-97.0 L (test code = 386) HCO3 ARTERIAL (BEAKER) (test code 27 mmol/L 21-29 = 388) BASE EXCESS ARTERIAL (BEAKER) 1.6 mmol/L -2.0-3.0 (test code = 387) PATIENT TEMPERATURE (BEAKER) (test 36.0 C code = 1818) FIO2 (BEAKER) (test code = 1819) 21.0 % [id number] 12:32:00 Test Item Value Reference Range Interpretation Comments MAGNESIUM (BEAKER) 1.7 mg/dL 1.6-2.6 Specimen slightly (test code = 627) hemolyzed POTASSIUM-STAT [id number] 12:31:00 Test Item Value Reference Range Interpretation Comments POTASSIUM (BEAKER) (test code = 3.2 meq/L 3.6-5.5 L 379) HGB/HCT (H&H) - STAT [id number] 12:31:00 Test Item Value Reference Range Interpretation Comments HEMOGLOBIN (BEAKER) (test code = 9.7 g/dL 13.0-16.8 L 410) HEMATOCRIT (BEAKER) (test code = 29.0 % 40.0-50.0 L 411) GLUCOSE-STAT [id number] 12:29:00 Test Item Value Reference Range Interpretation Comments GLUCOSE RANDOM (BEAKER) (test code 100 mg/dL 70-110 = 652) SODIUM NA-STAT [id number] 12:29:00 Test Item Value Reference Range Interpretation Comments SODIUM (BEAKER) (test code = 381) 136 meq/L 135-148 POCT-GLUCOSE [id number] 11:50:00 Test Item Value Reference Range Interpretation Comments POC-GLUCOSE METER 88 mg/dL 70-[address] [facility] [address] (BEAKER) (test code = [place] [address]) BASIC METABOLIC [id number] 09:48:00 Test Item Value Reference Range Interpretation Comments SODIUM (BEAKER) 139 meq/L 136-145 (test code = 381) POTASSIUM (BEAKER) 3.6 meq/L 3.5-5.1 (test code = 379) CHLORIDE (BEAKER) 110 meq/L 98-107 H (test code = 382) CO2 (BEAKER) (test 26 meq/L 22-29 code = 355) BLOOD UREA NITROGEN 4 mg/dL 7-21 L (BEAKER) (test code = 354) CREATININE (BEAKER) 0.55 mg/dL 0.57-1.25 L (test code = 358) GLUCOSE RANDOM 103 mg/dL 70-105 (BEAKER) (test code = 652) CALCIUM (BEAKER) 7.1 mg/dL 8.4-10.2 L (test code = 697) EGFR (BEAKER) (test 156 mL/min/1.73 ESTIM ATED GFR IS code = 1092) sq m NOT ACCURATE CREATININE CLEARANCE IN PREDICTING GLOMERULAR FILTRATION RATE . ESTIMATED GFR I S NOT APPLICABLE FOR DIALYSIS PATIEN TS. CBC W/PLT COUNT & AUTO [id number] 09:44:00 Test Item Value Reference Range Interpretation Comments WHITE BLOOD CELL COUNT (BEAKER) 28.0 K/ L 3.5-10.5 H (test code = 775) RED BLOOD CELL COUNT (BEAKER) 3.18 M/ L 4.63-6.08 L (test code = 761) HEMOGLOBIN (BEAKER) (test code = 10.0 GM/DL 13.7-17.5 L 410) HEMATOCRIT (BEAKER) (test code = 30.1 % 40.1-51.0 L 411) MEAN CORPUSCULAR VOLUME (BEAKER) 94.7 fL 79.0-92.2 H (test code = 753) MEAN CORPUSCULAR HEMOGLOBIN 31.4 pg 25.7-32.2 (BEAKER) (test code = 751) MEAN CORPUSCULAR HEMOGLOBIN CONC 33.2 GM/DL 32.3-36.5 (BEAKER) (test code = 752) RED CELL DISTRIBUTION WIDTH 15.4 % 11.6-14.4 H (BEAKER) (test code = 412) PLATELET COUNT (BEAKER) (test 270 K/CU MM 150-450 code = 756) MEAN PLATELET VOLUME (BEAKER) 9.5 fL 9.4-12.4 (test code = 754) NUCLEATED RED BLOOD CELLS 0 /100 WBC 0-0 (BEAKER) (test code = 413) (CELLAVISION MANUAL DIFF)2019-07-07 09:44:00 Test Item Value Reference Range Interpretation Comments NEUTROPHILS - REL 84 % (CELLAVISION)(BEAKER) (test code = 2816) LYMPHOCYTES - REL 4 % (CELLAVISION)(BEAKER) (test code = 2817) MONOCYTES - REL 9 % (CELLAVISION)(BEAKER) (test code = 2818) BANDS - REL (CELLAVISION)(BEAKER) 3 % 0-10 (test code = 2826) NEUTROPHILS - ABS 23.52 K/ul 1.78-5.38 H (CELLAVISION)(BEAKER) (test code = 2830) LYMPHOCYTES - ABS 1.12 K/ul 1.32-3.57 L (CELLAVISION)(BEAKER) (test code = 2831) MONOCYTES - ABS 2.52 K/uL 0.30-0.82 H (CELLAVISION)(BEAKER) (test code = 2832) BANDS - ABS (CELLAVISION)(BEAKER) 0.84 K/uL 0.00-0.80 H (test code = 2840) TOTAL COUNTED (BEAKER) (test code 100 = 1351) WBC MORPHOLOGY (BEAKER) (test code Normal = 487) PLT MORPHOLOGY (BEAKER) (test code Normal = 486) POIKILOCYTES (BEAKER) (test code = 1+ few 966) ARTIFACT (CELLAVISION)(BEAKER) Present (test code = 3432) PLATELET CONCENTRATION Adequate (CELLAVISION)(BEAKER) (test code = 3438) Received comment: Check after transfusion completedUser comments: Slide comments:HEPATIC FUNCTION [id number] 07:43:00 Test Item Value Reference Range Interpretation Comments TOTAL PROTEIN (BEAKER) (test code = 4.6 gm/dL 6.0-8.3 L 770) ALBUMIN (BEAKER) (test code = 1145) 2.2 g/dL 3.5-5.0 L BILIRUBIN TOTAL (BEAKER) (test code 0.7 mg/dL 0.2-1.2 = 377) BILIRUBIN DIRECT (BEAKER) (test 0.4 mg/dL 0.1-0.5 code = 706) ALKALINE PHOSPHATASE (BEAKER) (test 53 U/L 40-150 code = 346) AST (SGOT) (BEAKER) (test code = 11 U/L 5-34 353) ALT (SGPT) (SIOBHAN) (test code = 11 U/L 6-55 347) PROTHROMBIN [id number] 07:33:00 Test Item Value Reference Range Interpretation Comments PROTIME (SIOBHAN) (test code = 14.3 seconds 11.9-14.2 H 759) INR (SIOBHAN) (test code = 370) 1.2 <=5.9 Effective 04/02/2019: PT Reference Range ChangeNew: 11.9-14.2 Previous: 11.7- 14.7RECOMMENDED COUMADIN/WARFARIN INR THERAPY RANGESSTANDARD DOSE: 2.0-3.0 Includes: PROPHYLAXIS for venous thrombosis, systemic embolization; TREATMENT for venous thrombosis and/or pulmonary embolus.HIGH RISK: Target INR is2.5-3.5 for patients wiht mechanical heart valves.VITAMIN B12 AND [id number] 07:27:00 Test Item Value Reference Range Interpretation Comments VITAMIN B12 (SIOBHAN) (test code = 290 pg/mL 213-816 774) FOLATE (SIOBHAN) (test code = 362) 11.1 ng/mL >=7.0 POCT-GLUCOSE [id number] 06:09:00 Test Item Value Reference Range Interpretation Comments POC-GLUCOSE METER 89 mg/dL 70-[address] [facility] 6720 (SIOBHAN) (test code = [place] [facility] [address] 1538) RAD, CHEST, 1 VIEW, NON [id number] 04:21:00Reason for exam:- >leucocytosisShould this be performed at the bedside?->YesFINAL REPORT [...] changes of the spineand left shoulder. Signed: Yevgeniy Ellis MDReport Verified Date/Time: 07/07/2019 04:21:36 IRON, TIBC, % SAT. (WITHOUT FERRITIN)2019-07-07 01:55:00 Test Item Value Reference Range Interpretation Comments IRON (BEAKER) (test code = 547) 72.0 ug/dL 40.0-160.0 TOTAL IRON BINDING CAPACITY 94 ug/dL 250-450 L (BEAKER) (test code = 769) IRON % SATURATION (2) (BEAKER) 77 % 20-55 H (test code = 2590) URINALYSIS WITH MICROSCOPIC IF [id number] 01:48:00 Test Item Value Reference Range Interpretation Comments COLOR (BEAKER) (test code = 470) Light Yellow CLARITY (BEAKER) (test code = Clear 469) SPECIFIC GRAVITY UA (BEAKER) 1.005 1.001-1.035 (test code = 468) PH UA (BEAKER) (test code = 467) 6.5 5.0-8.0 PROTEIN UA (BEAKER) (test code = Negative Negative 464) GLUCOSE UA (BEAKER) (test code = Negative Negative 365) KETONES UA (BEAKER) (test code = Negative Negative 371) BILIRUBIN UA (BEAKER) (test code Negative Negative = 462) BLOOD UA (BEAKER) (test code = Negative Negative 461) NITRITE UA (BEAKER) (test code = Negative Negative 465) LEUKOCYTE ESTERASE UA (BEAKER) Negative Negative (test code = 466) UROBILINOGEN UA (BEAKER) (test 0.2 mg/dL 0.2-1.0 code = 463) SOURCE(BEAKER) (test code = 2795) [id number] 01:24:00 Test Item Value Reference Range Interpretation Comments POC-HEMOGLOBIN 5.4 g/dL 13.0-16.8 LL TESTED AT [facility] [address] (BEAKER) (test code = [place] [address]) [id number] AT [place] [address] [place] [address] POCT-BLOOD GASES, [id number] 01:23:00 Test Item Value Reference Range Interpretation Comments TEMP, CELSIUS-POC 36.1 (BEAKER) (test code = 1834) FIO2-POC (BEAKER) 21 TESTED AT [facility] 6720 (test code = 1835) [facility] [address] PH, VENOUS-POC 7.392 7.320-7.420 (BEAKER) (test code = 1842) PCO2, VENOUS-POC 42.4 mm Hg 41.0-51.0 (BEAKER) (test code = 1843) PO2, VENOUS-POC 54.0 mm Hg 25.0-40.0 H (BEAKER) (test code = 1844) SO2, VENOUS-POC 89.0 % 40.0-70.0 H (BEAKER) (test code = 1845) HCO3, VENOUS-POC 26.0 meq/L 21.0-29.0 (BEAKER) (test code = 1846) BASE EXCESS, 1.0 meq/L -2.0-3.0 VENOUS-POC (BEAKER) (test code = 1847) [id number] 01:23:00 Test Item Value Reference Range Interpretation Comments POC-SODIUM ([facility]) 141 meq/L 135-148 TESTED A T [place] [address] (test code = 1542) [facility] [address] [id number] 01:23:00 Test Item Value Reference Range Interpretation Comments POC-POTASSIUM 3.1 meq/L 3.6-5.5 L TESTED AT [place] [address] ([facility]) (test code [place] [id number] = 1540) [id number] 01:23:00 Test Item Value Reference Range Interpretation Comments POC-GLUCOSE ([facility]) 100 mg/dL 70-110 TESTED AT [place] [address] (test code = 1855) [facility] [address] POCT-CALCIUM [id number] 01:23:00 Test Item Value Reference Range Interpretation Comments POC-CALCIUM IONIZED 1.13 mmol/L 1.12-1.27 TESTED [place] [address] ([facility]) (test code = [facility] 1536) [address] [id number] 01:23:00 Test Item Value Reference Range Interpretation Comments POC-HEMATOCRIT 16 % 40-50 L TESTED AT [place] [address] ([facility]) (test code = [facility] [address] 4328) C-REACTIVE [id number] 01:07:00 Test Item Value Reference Range Interpretation Comments C-REACTIVE PROTEIN (BEAKER) (test 7.02 mg/dL 0.00-0.50 H code = 676) LACTIC ACID, [id number] 01:05:00 Test Item Value Reference Range Interpretation Comments LACTATE BLOOD VENOUS (2) (BEAKER) 1.4 mmol/L 0.5-2.2 (test code = 2872) POCT-GLUCOSE [id number] 01:02:00 Test Item Value Reference Range Interpretation Comments POC-GLUCOSE METER 125 mg/dL 70-[address] [facility] 67[address] (BEAKER) (test code = [place] [address]) [address] POCT-GLUCOSE [id number] 23:36:00 Test Item Value Reference Range Interpretation Comments POC-GLUCOSE METER 189 mg/dL 70-[address] [facility] 6720 (BEAKER) (test code = [place] 1538) [address] (CELLAVISION MANUAL DIFF)2019-07-06 21:36:00 Test Item Value Reference Range Interpretation Comments NEUTROPHILS - REL 93 % (CELLAVISION)(BEAKER) (test code = 2816) LYMPHOCYTES - REL 4 % (CELLAVISION)(BEAKER) (test code = 2817) MONOCYTES - REL 2 % (CELLAVISION)(BEAKER) (test code = 2818) BANDS - REL (CELLAVISION)(BEAKER) 1 % 0-10 (test code = 2826) NEUTROPHILS - ABS 29.85 K/ul 1.78-5.38 H (CELLAVISION)(BEAKER) (test code = 2830) LYMPHOCYTES - ABS 1.28 K/ul 1.32-3.57 L (CELLAVISION)(BEAKER) (test code = 2831) MONOCYTES - ABS 0.64 K/uL 0.30-0.82 (CELLAVISION)(BEAKER) (test code = 2832) BANDS - ABS (CELLAVISION)(BEAKER) 0.32 K/uL 0.00-0.80 (test code = 2840) TOTAL COUNTED (BEAKER) (test code 100 = 1351) RBC MORPHOLOGY (BEAKER) (test code Normal = 762) WBC MORPHOLOGY (BEAKER) (test code Normal = 487) PLT MORPHOLOGY (BEAKER) (test code Normal = 486) ARTIFACT (CELLAVISION)(BEAKER) Present (test code = 3432) PLATELET CONCENTRATION Adequate (CELLAVISION)(BEAKER) (test code = 3438) Received comment: User comments: Slide comments:BASIC METABOLIC [id number] 21:31:00 Test Item Value Reference Range Interpretation Comments SODIUM (BEAKER) 137 meq/L 136-145 (test code = 381) POTASSIUM (BEAKER) 3.7 meq/L 3.5-5.1 (test code = 379) CHLORIDE (BEAKER) 108 meq/L 98-107 H (test code = 382) CO2 (BEAKER) (test 25 meq/L 22-29 code = 355) BLOOD UREA NITROGEN 6 mg/dL 7-21 L (BEAKER) (test code = 354) CREATININE (BEAKER) 0.52 mg/dL 0.57-1.25 L (test code = 358) GLUCOSE RANDOM 90 mg/dL 70-105 (BEAKER) (test code = 652) CALCIUM (BEAKER) 7.3 mg/dL 8.4-10.2 L (test code = 697) EGFR (BEAKER) (test 167 mL/min/1.73 ESTIM ATED GFR IS code = 1092) sq m NOT ACCURATE CREATININE CLEARANCE IN PREDICTING GLOMERULAR FILTRATION RATE . ESTIMATED GFR I S NOT APPLICABLE FOR DIALYSIS PATIEN TS. CBC W/PLT COUNT & AUTO [id number] 21:27:00 Test Item Value Reference Range Interpretation Comments WHITE BLOOD CELL COUNT (BEAKER) 32.1 K/ L 3.5-10.5 H (test code = 775) RED BLOOD CELL COUNT (BEAKER) 2.69 M/ L 4.63-6.08 L (test code = 761) HEMOGLOBIN (BEAKER) (test code = 8.4 GM/DL 13.7-17.5 L 410) HEMATOCRIT (BEAKER) (test code = 25.6 % 40.1-51.0 L 411) MEAN CORPUSCULAR VOLUME (BEAKER) 95.2 fL 79.0-92.2 H (test code = 753) MEAN CORPUSCULAR HEMOGLOBIN 31.2 pg 25.7-32.2 (BEAKER) (test code = 751) MEAN CORPUSCULAR HEMOGLOBIN CONC 32.8 GM/DL 32.3-36.5 (BEAKER) (test code = 752) RED CELL DISTRIBUTION WIDTH 15.8 % 11.6-14.4 H (BEAKER) (test code = 412) PLATELET COUNT (BEAKER) (test 276 K/CU MM 150-450 code = 756) MEAN PLATELET VOLUME (BEAKER) 9.7 fL 9.4-12.4 (test code = 754) NUCLEATED RED BLOOD CELLS 0 /100 WBC 0-0 (BEAKER) (test code = 413) HEPATIC FUNCTION [id number] 21:26:00 Test Item Value Reference Range Interpretation Comments TOTAL PROTEIN (BEAKER) (test code = 4.6 gm/dL 6.0-8.3 L 770) ALBUMIN (BEAKER) (test code = 1145) 2.2 g/dL 3.5-5.0 L BILIRUBIN TOTAL (BEAKER) (test code 0.7 mg/dL 0.2-1.2 = 377) BILIRUBIN DIRECT (BEAKER) (test 0.4 mg/dL 0.1-0.5 code = 706) ALKALINE PHOSPHATASE (BEAKER) (test 58 U/L 40-150 code = 346) AST (SGOT) (BEAKER) (test code = 10 U/L 5-34 353) ALT (SGPT) (BEAKER) (test code = 11 U/L 6-55 347) PROTHROMBIN [id number] 21:18:00 Test Item Value Reference Range Interpretation Comments PROTIME (BEAKER) (test code = 14.2 seconds 11.9-14.2 759) INR (BEAKER) (test code = 370) 1.2 <=5.9 Effective 04/02/2019: PT Reference Range ChangeNew: 11.9-14.2 Previous: 11.7- 14.7RECOMMENDED COUMADIN/WARFARIN INR THERAPY RANGESSTANDARD DOSE: 2.0-3.0 Includes: PROPHYLAXIS for venous thrombosis, systemic embolization; TREATMENT for venous thrombosis and/or pulmonary embolus.HIGH RISK: Target INR is2.5-3.5 for patients wiht mechanical heart valves.[[facility]] CMP [id number] 13:50:01 Test Item Value Reference Range Interpretation Comments Sodium Level 138 {mEq/l} 135-145 (test code = 2951-2) Potassium Level 3.7 {mEq/l} 3.5-5.1 (test code = 2823-3) Chloride Level 103 {mEq/l} 95-109 (test code = 5-0) Carbon Dioxide 27 {mEq/l} 24-32 (test code = 2027-9) AGAP (test code = 11.7 {mEq/l} 10.0-20.0 37817-1) Glucose Lvl; 53 mg/dl 70-99 Adult reference range Below Low values reflect the Threshold (test clinical nate delinesof the code = 2345-7) [employer] [employer]. Creatinine Lvl 0.70 mg/dl 0.50-1.40 (test code = 2160-0) Blood Urea 5 mg/dl 7-22 Nitrogen; Below Low Threshold (test code = 3094-0) BUN/Creatinine 7 6-25 Ratio (test code = 3097-3) Total Protein 8.1 g/dl 6.4-8.4 (test code = 2885-2) Albumin Lvl; 3.0 g/dl 3.5-5.0 Below Low Threshold (test code = 1751-7) Globulin; Above 5.1 g/dl 2.7-4.2 High Threshold (test code = 80692-1) A/G Ratio; Below 0.6 0.7-1.6 Low Threshold (test code = 1759-0) Calcium Level 8.7 mg/dl 8.5-10.5 Total (test code = 38146-6) ALT (test code = 35 u/l 0-65 3-4) AST (test code = 16 u/l 0-37 11081-8) Alk Phos (test 117 u/l 39-136 code = 1783-0) Bili Total (test 0.5 mg/dl 0.2-1.3 code = 1974-) eGFR (test code = 108 The eGFR i s calculated 41207-8) {ML/MIN/1.7} using the CKD-E PI formula. In mos t young, healthyindividu als the eGFR will be >9 0 mL/min/1.73m2. The eGFR declines with a ge. AneGFR of 60-89 may be normal in some population s, particularly th e elderly, forwhom the CKD -EPI formula has not been extensively maritza idated. Use of the eGFR isnot recommended in the following populations:Ind ividuals with unstable c reatinine concentrations, including patient s and those with seri ous co-morbid conditions.Serene ents with extremes in mus kenna mass or diet.The ciarra a above are obtained fr om the National Kidney Disease Education Progr am(NKDEP) which [place] recommends that when the eGFR is used in patientswith ex tremes of body mass index for purposes of adalgisa g dosing, the eGFR should be multiplied by t he estimated BMI. [facility]] [id number] 13:50:01 Test Item Value Reference Range Interpretation Comments Magnesium Level (test code = 2.2 mg/dl 1.8-2.4 13292-6) [facility]] PHOSPHATE ( PHOSPHORUS)2019-04-17 13:50:01 Test Item Value Reference Range Interpretation Comments Phosphorus Level; Below Low 2.2 mg/dl 2.5-4.5 Threshold (test code = 2777-1) [facility]] TSH, 3RD GENERATION W/REFLEX TO FT4 2019-04-17 13:50:01 Test Item Value Reference Range Interpretation Comments TSH (test code = 41961-9) 0.993 {uIU/ml} 0.360-3.740 [facility]] PTH, INTACT (WITHOUT CALCIUM)2019-04-17 13:50:01 Test Item Value Reference Range Interpretation Comments Parathyroid Hormone Intact; Above 85.6 pg/ml 18.4-80.1 High Threshold (test code = 2731-8) [facility]] VITAMIN D, 25-HYDROXY, LC/[id number] 13:50:01 Test Item Value Reference Range Interpretation Comments Vitamin D, 25-OH, 25.5 ng/ml 30.0-100.0 Reference range is based Total (test code on recommen dations in the = Vitamin D, EndocrineSociet y Clinical 25-OH, Total) Practice Guide line (J Clin Endocrinol Mzvoj5506;96:19 11-1930) [facility][] Procollagen Type I Intact N Terminal [id number] 13:50:01 Test Item Value Reference Range Interpretation Comments Procollagen Type I 52 {UG/L} 22-87 Performed At: BN Intact N Terminal Pro [facility] (test code = [id number] [place] [address] SHALINI Gannon Intact N Terminal Pro) [id number] Mejia MD Ph:[phone] [facility][QH] [id number] 13:35:01 Test Item Value Reference Range Interpretation Comments Calcium Level Total Cancel Reason: System (test code = 38427-9) Cancel [facility][H] Misc [id number] 13:35:01 Test Item Value Reference Range Interpretation Comments Misc [facility] (test COMMENT Test Orde red: 117649 code = Misc [facility]) C-Telop eptide, SerumC-Telopept villa, Serum 491 pg/mL ESRef erence Range:38 - 724P erformed At: [facility] [address] [place], [place] [id number] Kyle L MD Ph:[phone] rformed At: [facility] [address] [place], [place] [id number] ashley Hansen MD Ph:[phone] [facility][U] XRAY KNEE 4 OR MORE VWS BILATERAL [id number] 2018-04-15 14:38:00Images acquired, not reported on this accession number. [facility]
--- NOTE | 2021-07-14 10:25 | ER ---
Nurse's Notes [facility] Name: Nabor Barrow Jr Age: 56 yrs Sex: Male : 1965 Arrival Date: 07/14/2021 Time: 09:57 Bed 12 Private MD: Dede Diaz Diagnosis: Sciatica, right side Presentation: 07/14 09:59 Chief complaint: Patient states: i got some real pains on my lower right side all the tw2 way down to my knee. on the 18th last month i had a nerve block for my back. i had 50% of my back crushed and they are trying to get my pain under control. and once it wore off i have been in severe pain. Dr. Whalen did the nerve block and it worked for a week and a half. I got one injection and was supposed to come back. I called him to get the others and they told me to come here to get checked out. Coronavirus screen: At this time, the client does not indicate any symptoms associated with coronavirus-19. Ebola Screen: Patient denies travel to an Ebola-affected area in the 21 days before illness onset. Initial Sepsis Screen: Does the patient meet any 2 criteria? HR > 90 bpm. No. Patient's initial sepsis screen is negative. Does the patient have a suspected source of infection? No. Patient's initial sepsis screen is negative. Risk Assessment: Do you want to hurt yourself or someone else? Patient reports no desire to harm self or others. 09:59 Method Of Arrival: Wheelchair tw2 09:59 Acuity: INNA 3 tw2 09:59 Note provider LEÓN Frances in triage room performing assessment at this time. tw2 10:06 Onset of symptoms was July 14, 2021. tw2 Triage Assessment: 10:02 General: Appears in no apparent distress. uncomfortable, Behavior is calm, cooperative, tw2 appropriate for age. Pain: Complains of pain in right side from back down leg. Respiratory: Airway is patent Respiratory effort is even, unlabored, Respiratory pattern is regular, symmetrical. Musculoskeletal: Amputation of left BKA. Historical: - Allergies: 10:02 Lyrica; tw2 10:02 Imuran; tw2 10:02 NSAIDS (Non-Steroidal Anti-Inflamma; tw2 10:02 azathioprine sodium; tw2 10:02 Aspirin; tw2 - Home Meds: 10:02 prednisone 5 mg Oral tab 1 tab 2 times per day [Active]; Plavix 75 mg Oral tab 1 tab tw2 once daily [Active]; Nexium 40 mg Oral cpDR 1 cap [Active]; gabapentin 800 mg Oral tab 3 times per day [Active]; hydrocodone-acetaminophen 7.5-325 mg Oral tab 1 tab every 4 hours [Active]; - PMHx: 10:02 stroke 2009; Arthritis; Chronic pain; Hypertension; Kidney stones; psoriatic arthirits; tw2 Screenin:07 Abuse screen: Denies threats or abuse. Nutritional screening: No deficits noted. tw2 Tuberculosis screening: No symptoms or risk factors identified. Fall Risk Secondary diagnosis (15 points) impaired mobility, CVA, Gait- Impaired (20 pts.). Assessment: 10:10 General: Appears uncomfortable, Behavior is calm, cooperative. Pain: Complains of pain aa5 in right low back Pain radiates to right leg Pain currently is 8 out of 10 on a pain scale. Quality of pain is described as sharp, shooting, Pain began is chronic Is continuous. Neuro: Level of Consciousness is awake, alert, obeys commands, Oriented to person, place, time, situation. Cardiovascular: Patient's skin is warm and dry. Respiratory: Airway is patent Respiratory effort is even, unlabored, Respiratory pattern is regular, symmetrical. GI: No signs and/or symptoms were reported involving the gastrointestinal system. : No signs and/or symptoms were reported regarding the genitourinary system. EENT: No signs and/or symptoms were reported regarding the EENT system. Derm: Skin is pink, warm \T\ dry. Musculoskeletal: BKA noted to left leg. 10:51 Reassessment: Patient is alert, oriented x 3, equal unlabored respirations, skin aa5 warm/dry/pink. Patient states feeling better. Patient states symptoms have improved. Vital Signs: 09:59 BP 125 / 91; Pulse 108; Resp 19; Temp 98.4(TE); Pulse Ox 97% on R/A; tw2 10:50 Pulse 100; Resp 16 S; Pulse Ox 96% on R/A; aa5 ED Course: 09:57 Patient arrived in ED. as 09:58 Dede Diaz MD is Private Physician. as 10:01 Caryl Daugherty FNP-C [facility] kb 10:01 Tony Roberto MD is Attending Physician. kb 10:01 Triage completed. tw2 10:02 Arm band placed on. tw2 10:10 Patient has correct armband on for positive identification. Call light in reach. Pt aa5 sitting in wheelchair. 10:29 Kim Rees, RN is Primary Nurse. aa5 10:51 No provider procedures requiring assistance completed. Patient did not have IV access aa5 during this emergency room visit. Administered Medications: 10:29 Drug: SOLU-Medrol (methylPREDNISolone sodium succinate) 125 mg Route: IM; Site: right aa5 gluteus; 10:51 Follow up: Response: No adverse reaction; Pain is decreased aa5 10:29 Drug: morphine 4 mg Route: IM; Site: right gluteus; aa5 10:51 Follow up: Response: No adverse reaction; Pain is decreased aa5 Outcome: 10:25 Discharge ordered by MD. kb 10:51 Discharged to home via wheelchair, with friend. aa5 10:51 Condition: improved 10:51 Discharge instructions given to patient, Instructed on discharge instructions, follow up and referral plans. medication usage, Demonstrated understanding of instructions, follow-up care, medications, Prescriptions given X 1. 10:57 Patient left the ED. 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
--- NOTE | 2021-07-14 10:25 | EDPHYS ---
Physician Documentation [facility] Name: Nabor Barrow Jr Age: 56 yrs Sex: Male : 1965 Arrival Date: 07/14/2021 Time: 09:57 Bed 12 Private MD: Dede Diaz ED Physician Tony Roberto HPI: 07/14 18:21 This 56 yrs old Male presents to ER via Wheelchair with complaints of Low Back kb Pain, Knee Pain. 18:22 The patient presents with pain that is acute, with no known mechanism of injury, that kb is chronic. The symptoms are located in the right low back. The pain radiates to the right quadriceps. The problem was sustained from unknown cause. Onset: The symptoms/episode began/occurred 1 week(s) ago. Modifying factors: The patient symptoms are alleviated by nothing, the patient symptoms are aggravated by any movement. Associated signs and symptoms: The patient has no apparent associated signs or symptoms. Severity of symptoms: At their worst the symptoms were moderate, in the emergency department the symptoms are unchanged. The patient has not experienced similar symptoms in the past. The patient has not recently seen a physician. Pt reports he sees Dr Galvez for chronic back pain. States he had an injection last month and was supposed to get another one, but missed the appt because of a in the family. Called them today about right low back/upper buttock pain that radiates to right knee and was told to come to ER for evaluation. Historical: - Allergies: 10:02 Lyrica; tw2 10:02 Imuran; tw2 10:02 NSAIDS (Non-Steroidal Anti-Inflamma; tw2 10:02 azathioprine sodium; tw2 10:02 Aspirin; tw2 - Home Meds: 10:02 prednisone 5 mg Oral tab 1 tab 2 times per day [Active]; Plavix 75 mg Oral tab 1 tab tw2 once daily [Active]; Nexium 40 mg Oral cpDR 1 cap [Active]; gabapentin 800 mg Oral tab 3 times per day [Active]; hydrocodone-acetaminophen 7.5-325 mg Oral tab 1 tab every 4 hours [Active]; - PMHx: 10:02 stroke 2009; Arthritis; Chronic pain; Hypertension; Kidney stones; psoriatic arthirits; tw2 ROS: 10:55 Constitutional: Negative for fever, chills, and weight loss. kb 10:55 Back: Positive for pain at rest, pain with movement, radiated pain, of the right low back, Negative for injury or acute deformity. 10:55 All other systems are negative. Exam: 10:55 Constitutional: This is a well developed, well nourished patient who is awake, alert, kb and in no acute distress. Head/Face: Normocephalic, atraumatic. ENT: Moist Mucous membranes Respiratory: Respirations even and unlabored. No increased work of breathing, no retractions or nasal flaring. Skin: Warm, dry with normal turgor. Normal color. Neuro: Awake and alert, GCS 15, oriented to person, place, time, and situation. Moves all extremities. Normal gait. Psych: Awake, alert, with orientation to person, place and time. Behavior, mood, and affect are within normal limits. 10:55 Back: pain, that is moderate, of the right low back, ROM is normal, normal spinal alignment noted, CVA tenderness, is absent, vertebral tenderness, is not appreciated. 10:55 Musculoskeletal/extremity: Extremities: grossly normal except: noted in the left leg: AKA. Vital Signs: 09:59 BP 125 / 91; Pulse 108; Resp 19; Temp 98.4(TE); Pulse Ox 97% on R/A; tw2 10:50 Pulse 100; Resp 16 S; Pulse Ox 96% on R/A; aa5 MDM: 10:08 Patient medically screened. kb 10:57 Data reviewed: vital signs, nurses notes. Data interpreted: Pulse oximetry: on room air kb is 96 %. Interpretation: normal. 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 Administered Medications: 10:29 Drug: SOLU-Medrol (methylPREDNISolone sodium succinate) 125 mg Route: IM; Site: right aa5 gluteus; 10:51 Follow up: Response: No adverse reaction; Pain is decreased aa5 10:29 Drug: morphine 4 mg Route: IM; Site: right gluteus; aa5 10:51 Follow up: Response: No adverse reaction; Pain is decreased aa5 Disposition: 07/15 04:43 Co-signature as Attending Physician, Tony Roberto MD I agree with the assessment and kdr plan of care. Disposition Summary: 07/14/21 10:25 Discharge Ordered Location: Home kb Condition: Stable kb Diagnosis - Sciatica, right side kb Followup: kb - With: Emergency Department - When: As needed - Reason: Worsening of condition Followup: kb - With: Private Physician - When: 2 - 3 days - Reason: Recheck today's complaints, Continuance of care, Re-evaluation by your physician Discharge Instructions: - Discharge Summary Sheet kb - Sciatica, [id number] kb Forms: - Medication Reconciliation Form kb - Thank You Letter kb - Antibiotic Education kb - Prescription Opioid Use kb Prescriptions: - Prednisone 20 mg Oral Tablet - take 1 tablet by ORAL route once daily for 5 days; 5 tablet; Refills: 0, kb Product Selection Permitted Signatures: Caryl Daugherty, LEÓN-C [employer]ING-Tony Livingston MD MD [facility] Kim Rees, RN RN aa5 Marlee Mace RN RN tw2 Corrections: (The following items were deleted from the chart) 07/14 10:25 10:25 Sciatica, left side kb kb
[2021-07-14] MEDS ORDERED: METHYLPREDNISOLONE 125 MG INJ ONE (10:46)
[2021-07-14] MEDS ORDERED: MORPHINE 4 MG/ML SYR ONE (10:46)
[2021-07-14 11:02] VITALS: BP 125/91; TEMP 98.4
[2021-07-14 11:04] VITALS: O2SAT 96
== END 2021-07-14 10:57 | disposition home or self-care (01) ==
LOC: ER 09:54
DX: M54.31 Sciatica, right side (principal); G89.29 Other chronic pain; I10 Essential (primary) hypertension; L40.50 Arthropathic psoriasis, unspecified; Z79.02 Long term (current) use of antithrombotics/antiplatelets; Z88.6 Allergy status to analgesic agent; Z88.8 Allergy status to other drugs, medicaments and biological substances; Z86.73 Personal history of transient ischemic attack (TIA), and cerebral infarction without residual deficits; Z87.442 Personal history of urinary calculi
CPT/HCPCS: 96372; 99283; J2930

== ENCOUNTER 2022-05-29 14:40 | Emergency (ER) | payer OTHER ==
--- OUTSIDE RECORDS SUMMARY | 2022-05-29 14:49 | XMS REPORT | Continuity of Care Document ---
:[address] [facility] t Address [address] [place] [address] Care Team Providers Name Role Phone Dexter Bravo Primary Care Physician [phone] ELBA Attending Clinician Unavailable TIGRE Attending Clinician Unavailable Regan Attending Clinician Unavailable JOSEPH Attending Clinician Unavailable ENEIDA_CORRINE Attending Clinician Unavailable Joseph LIM Attending Clinician DEE Attending Clinician Unavailable MARCO Attending Clinician Unavailable Lab, Fam Pob I Attending Clinician Unavailable Aneqamar VICE PRESIDENT OF [employer] [employer] Attending Clinician JACQUELINE Attending Clinician Unavailable Doctor Unassigned, Name Attending Clinician Unavailable 2, Lab Attending Clinician Unavailable Joe LIM Attending Clinician Pob, Lab Main Attending Clinician Unavailable UNKNOWN Attending Clinician Unavailable URBANO, DEANGELO Attending Clinician Unavailable JONATHAN Attending Clinician Unavailable ELBA Attending Clinician Unavailable TIGRE Attending Clinician Unavailable HÉCTOR Attending Clinician Unavailable MARCO Attending Clinician Unavailable GUSTAVO Attending Clinician Unavailable SHREYAS Attending Clinician Unavailable MARINO Attending Clinician Unavailable KATIE Attending Clinician Unavailable SANJUANA Attending Clinician Unavailable AMBREEN_FARHANA Admitting Clinician Unavailable NALAM, DEANGELO Admitting Clinician Unavailable Payers Payer Name Policy Type Policy Number Effective Date Expiration Date Geo beasley [facility] [id number] 2020 2020 MEDICARE SNP 00:00:00 00:00:00 [employer] DEVORAH [id number] 2014 PLUS 00:00:00 WELLMED/UHC DUAL [id number] 2021 COMP HMO D SNP 00:00:00 [employer] [place] - [id number] 2014 STAR PLUS MMP - 00:00:00 DUAL ELIGIBLE (MEDICARE - MEDICAID REPLACEMENT HMO) Problems Condition Condition Condition Status Onset Resolution Last Treating Co mments Source Name Details Category Date Date Treatment Clinician Date 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 11 [facility] 00:[facility]: [facility] 00 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 Active [facility] systemic systemic 07[facility]16 [facility] steroid steroid 00:00: Medical user user 00 Center Leukocytos Leukocytos Disease Active [facility] is is 07[facility]16 [facility] 00:[facility]: [facility] Center Noninfecte Noninfecte Disease Active U nivers d skin d skin 9-16 ity of tear of tear of 00:00: [place] leg, leg, 00 Medical right, right, Branch initial initial encounter encounter Right leg Right leg Disease Active Uni vers pain pain 8-10 ity of 00:00: [place] 00 Medical Branch Skin ulcer Skin ulcer Disease Active U nivers 4-30 ity of 00:00: [place] 00 Medical Branch Therapeuti Therapeuti Disease Active U meri c drug c drug 1-17 ity of monitoring monitoring 00:[place]: [place] [facility] Rash, skin Rash, skin Disease Active 2010-11 U nivers 0-04 ity of 00:00: [place] 00 Medical Branch Vitamin D Vitamin D Disease Active Uni vers deficiency deficiency 8-16 it y of disease disease 00:00: [place] 00 Medical Branch Bilateral Bilateral Disease Active Uni vers flank pain flank pain 5-27 it y of 00:00: [place] 00 Medical Branch Tinea Tinea Disease Active Univers corporis corporis 4-29 ity of 00:00: [place] 00 Medical Branch Pathologic Pathologic Disease Active U nivers fracture fracture 1-22 ity of of of 00:00: [place] vertebrae vertebrae 00 [facility] Branch Drug-induc Drug-induc Disease Active U meri ed ed - ity of osteoporos osteoporos 00:[place]: [place] [facility] Personal Personal Disease Active Unive rs History of History of -22 it y of Other Other 00:00: [place] Diseases Diseases 00 Medica l of of Branch 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 00:00: [place] 00 Medical Branch Encounter Encounter Disease Active 2008-11 Uni vers for for 2- ity of long-term long-term 00:[place] ([place] (current[place] 00 [facility] use of use of Branch steroids steroids Psoriatic Psoriatic Disease Active Uni vers arthropath arthropath 3-18 it y of y y 00:00: [place] 00 Medical Branch History of History of Problem Active U T kidney kidney Physici stones stones ans Depression Depression Problem Active U T Physici ans Abscess of Abscess of Problem Active U T bursa of bursa of Physic i right right ans ankle ankle Injury of Injury of Problem Active UT left left Physici elbow, elbow, ans initial initial encounter encounter Left elbow Left elbow Problem Active U T pain pain Physici ans Bilateral Bilateral Problem Active UT knee pain knee pain Phys ici ans Status Status Problem Active UT post total post total Ph ysici bilateral bilateral ans knee knee replacemen replacemen t t Arthritis Arthritis Problem Active UT of elbow, of elbow, Phys ici left left ans Arthritis Arthritis Problem Active UT of elbow, of elbow, Phys ici right right ans Gait Gait Problem Active UT instabilit instabilit Ph ysici y y ans Age Age Problem Active UT related related Physici osteoporos osteoporos an s is, is, unspecifie unspecifie d d pathologic pathologic al al fracture fracture presence presence Amputated Amputated Problem Active UT left leg left leg Physic i ans Allergies, Adverse Reactions, Alerts Allergy Allergy Status Severity Reaction(s) Onset Inactive Treating Comm ents Source Name Type Date Date Clinician azathiop DA Active [facility] 04[facility]13 [place] 00:00: [facility] pregabal DA Active [facility] in 04-13 [place] 00:00: [facility] azathiop DA Active SV HEADACHES, [facility] r[facility] FEVER, 04-13 [place] [facility] pregabal DA Active SV FACE, 2019- [facility] in THROAT, AND 04-13 [place] EXTREMITY 00:00: [facility] S[facility]LL[facility] Aspirin Propensi Active Nausea And 2019-[address] [facility] [address] ty to Vomiting 07-06 [facility] adverse 00:00: Medical reaction 00 Center s ASPIRIN Allergy Active High N\\T\\V 2018- [facility] 07[facility] 00[facility] 00 Center AZATHIOP Allergy Active High Anaphylaxis 2018-[address] RINE 07-06 [facility] 00:[facility]: Medical 00 Center Azathiop Propensi Active Anaphylaxis 2018-[address] rine ty to 07-06 [facility] adverse 00:00: Medical reaction 00 Center s PREGABAL Allergy Active High Swelling 2018-0 [facility] IN 07-06 [facility] 00:[facility]: Medical 00 Center Pregabal Propensi Active Swelling 2018-[address] [facility] in ty to 07-06 [facility] adverse 00:00: Medical reaction 00 Center s Pregabal Allergy Active Swelling 2017- Other UT in to 07-21 reaction( Health substanc 00:00: s): FACE, e 00 THROAT, AND EXTREMITY SWELLING Pregabal Propensi Active Rash Univer s in ty to 07-21 ity of adverse 00:00: [place] reaction Medical s Branch PREGABAL DRUG Active Rash 2017- Univers IN INGREDI 07-21 ity of 00:00: [place] 00 Medical Branch Aspirin Allergy Active Nausea Only Data UT to 06-02 migrated Health substanc 00:00: from GE e 00 Centricit y on 03/04/15. Originall y documente d as ASA. Azathiop Allergy Active Swelling Other UT rine to 06-02 reaction( Health substanc 00:00: s): e 00 HEADACHES , FEVER, STOMACHAC HEData migrated from GE Centricit y on 03/04/15. Originall y documente d as IMURAN. Aspirin Propensi Active Nausea Only Un melchor ty to 06-02 ity of adverse 00:00: [place] reaction Medical s Branch Azathiop Propensi Active Swelling Univ ers rine ty to 06-02 ity of Sodium adverse 00:00: [place] reaction Medical s Branch ASPIRIN DRUG Active NAUSEA ONLY Univ ers INGREDI 06-02 ity of 00:00: [place] 00 [facility] AZATHIOP DRUG Active Anaphylaxis Uni vers RINE INGREDI 06-02 ity of SODIUM 00:00: [address] Aspirin drug Active UT TABS allergy Physici ans Imuran drug Active UT allergy Physici ans Lyrica drug Active UT CAPS allergy Physici ans Family History Family Member Diagnosis Comments Start Date Stop Date Source Mother Family history of UT Phys icians diabetes mellitus Mother Family history of [facility] Phys icians hypertension Natural mother Diabetes [facility] Social History Social Habit Start Date Stop Date Quantity Comments Source History of tobacco Cigarette Smoker University of use [facility] Tobacco Comment 1 Cigarette a Univer sity of day or less Quit [facility] dical 15 years ago. Branch History SDOH [facility] Alcohol Binge Medical [facility] ter History SDOH [facility] Alcohol Std Drinks [facility] Exposure to Not sure [facility] SARS-CoV-2 (event) Tobacco use and 2021-12-20 2021-12-20 Smokeless [facility] exposure 00:00:00 00:00:00 tobacco non-user Alcohol intake 2021-12-20 2021-12-20 Lifetime [facility] 00:00:00 00:00:00 non-drinker (finding) Cigarettes smoked 2019-10-15 2019-10-15 Univers ity of current (pack per 00:00:00 00:00:00 [facility] ) - Reported Branch Cigarette 2019-10-15 2019-10-15 University of pack-years 00:00:00 00:00:00 [facility] History SDOH 2019-07-06 2019-07-[address] [facility] Alcohol Frequency 00:00:00 00:00:00 [facility] Center Sex Assigned At [birth year] [facility] 00:00:00 00:00:00 Smoking Status Start Date Stop Date Source Tobacco smoking [facility] consumption unknown Never smoked tobacco [facility] Former smoker 2019-07-08 00:00:00 2019-07-[address] [facility] 00:00:00 Center Medications Ordered Filled Start Stop Current Ordering Indication Dosage Frequency Signature Comments Components Source Medication Medication Date Date Medication? Clinician (SIG) Name Name montelukast Yes UT (Singulair) 12-17 Health 10 MG 00:00: tablet 00 fluocinonid Yes UT e (Lidex) 2-02 Health 0.05 % 00:00: external 00 solution fluocinonid 2-0 Yes UT e (Lidex) 2-02 Health 0.05 % 00:00: external 00 solution predniSONE 2022-0 Yes UT (Deltasone) 1-26 Health 5 MG tablet 00:00: 00 predniSONE 2022-0 Yes UT (Deltasone) 1-26 Health 5 MG tablet 00:00: 00 gabapentin 2022-0 Yes 800mg [id number] Take 800 UT (Neurontin) 1-12 [id number] mg by H ealth 800 MG 00:00: 3D mouth 3 tablet 00 (three) times a day. HYDROcodone 2022-0 Yes 1{tbl} Q.[id number] Take 1 UT -acetaminop 1-12 [id number] tablet by Health hen (Phase Focus) 00:00: 3D mouth 3 7.5-325 MG 00 (three) tablet times a day. meloxicam 2022-0 Yes 7.5mg Q.5D Take 7.5 UT (Mobic) 7.5 1-12 mg by Health MG tablet 00:00: mouth 2 00 (two) times a day. as directed tiZANidine 2022-0 Yes 4mg Q.5D Take 4 mg UT (Zanaflex) 1-12 by mouth 2 Hea lth 4 MG tablet 00:00: (two) 00 times a day. gabapentin 2022-0 Yes 800mg Q.[id number] Take 800 UT (Neurontin) 1-12 [id number] mg by H ealth 800 MG 00:00: 3D mouth 3 tablet 00 (three) times a day. HYDROcodone 2022-0 Yes 1{tbl} Q.[id number] Take 1 UT -acetaminop 1-12 [id number] tablet by Health hen (Phase Focus) 00:00: 3D mouth 3 7.5-325 MG 00 (three) tablet times a day. meloxicam 2022-0 Yes 7.5mg Q.5D Take 7.5 UT (Mobic) 7.5 1-12 mg by Health MG tablet 00:00: mouth 2 00 (two) times a day. as directed tiZANidine 2022-0 Yes 4mg Q.5D Take 4 mg UT (Zanaflex) 1-12 by mouth 2 Hea lth 4 MG tablet 00:00: (two) 00 times a day. fluticasone Yes SHAKE UT (Flonase) 1-10 LIQUID AND Heal th 50 MCG/ACT 00:00: USE 1 nasal spray 00 SPRAY IN EACH NOSTRIL 1 TIME EACH DAY fluticasone 0 Yes SHAKE UT (Flonase) 1-10 LIQUID AND Heal th 50 MCG/ACT 00:00: USE 1 nasal spray 00 SPRAY IN EACH NOSTRIL 1 TIME EACH DAY clobetasol 2020-11 Yes APPLY TO UT (Temovate) 2 PSORIASIS Heal th 0.05 % 00:00: TWICE cream 00 DAILY NEEDED ALTERNATIN G WITH CALCIPOTRI DAYRON DO NOT USE ON FACE clobetasol 2020-11 Yes APPLY TO UT (Temovate) 12-06 PSORIASIS Heal th 0.05 % 00:00: TWICE cream 00 DAILY NEEDED ALTERNATIN G WITH CALCIPOTRI DAYRON DO NOT USE ON FACE methocarbam 0 Yes 1000mg Take 1,000 UT ol 6-21 mg by Health (Robaxin) 00:00: mouth. 500 MG 00 tablet methocarbam Yes 1000mg Take 1,000 UT ol 6-21 mg by Health (Robaxin) 00:00: mouth. 500 MG 00 tablet ergocalcife 2020-1 Yes [id number] Take 1 Univers rol, 0-15 capsule by ity of vitamin d2, 00:00: mouth [place] 1,250 mcg 00 weekly. Medical (50,000 Branch unit) capsule ergocalcife 2020-1 Yes [id number] Take 1 Univers rol, 0-15 capsule by ity of vitamin d2, 00:00: mouth [place] 1,250 mcg 00 weekly. Medical (50,000 Branch unit) capsule ergocalcife 2020-1 Yes [id number] Take 1 Univers rol, 0-15 capsule by ity of vitamin d2, 00:00: mouth [place] 1,250 mcg 00 weekly. Medical (50,000 Branch unit) capsule ergocalcife 2020-1 Yes [id number] Take 1 Univers rol, 0-15 capsule by ity of vitamin d2, 00:00: mouth [place] 1,250 mcg 00 weekly. Medical (50,000 Branch unit) capsule ergocalcife 2020-1 2022- No 1{capsu Take 1 UT rol 0-15 11-19 le} capsule by Health (Vitamin 00:00: 05:59 mouth 1 D-2) 1.25 00 :00 (one) time MG (62109 per week. UT) capsule ergocalcife 2019-11- No 1{capsu Take 1 UT rol 0-15 11-19 le} capsule by Health (Vitamin 00:00: 05:59 mouth 1 D-2) 1.25 00 :00 (one) time MG (37120 per week. UT) capsule furosemide 2019-0 Yes Univers 20 mg 8-06 ity of tablet 00:00: [place] [facility] furosemide 2020-0 Yes Univers 20 mg 8-06 ity of tablet 00:00: [place] [facility] furosemide 2020-0 Yes Univers 20 mg 8-06 ity of tablet 00:00: [place] [address] Medical Branch furosemide 2020-0 Yes Univers 20 mg 8-06 ity of tablet 00:00: [place] [address] Medical Branch furosemide 2020-0 Yes Univers 20 mg 8-06 ity of tablet 00:00: [place] [address] Medical Branch furosemide 2020-0 Yes Univers 20 mg 8-06 ity of tablet 00:00: [place] [address] Medical Branch furosemide 2020-0 Yes Univers 20 mg 8-06 ity of tablet 00:00: [place] [address] Medical Branch furosemide 2020-0 Yes Univers 20 mg 8-06 ity of tablet 00:00: [place] [address] Medical Branch furosemide 2020-0 Yes Univers 20 mg 8-06 ity of tablet 00:00: [place] [address] Medical Branch testosteron 2020-0 Yes [id number] 80mg 0.8 mL by Univers e cypionate 2-19 Intramuscu it y of 100 mg/mL 00:00: lar route [place] as injection 00 weekly. Medical Branch testosteron 2020-0 Yes [id number] 80mg 0.8 mL by Univers e cypionate 2-19 Intramuscu it y of 100 mg/mL 00:00: lar route [place] as injection 00 weekly. Medical Branch testosteron 2020-0 Yes [id number] 80mg 0.8 mL by Univers e cypionate 2-19 Intramuscu it y of 100 mg/mL 00:00: lar route [place] as injection 00 weekly. [facility] Branch testosteron 2020-0 Yes [id number] 80mg 0.8 mL by Univers e cypionate 2-19 Intramuscu it y of 100 mg/mL 00:00: lar route [place] as injection 00 weekly. Medical Branch testosteron 2020-0 Yes [id number] 80mg 0.8 mL by Univers e cypionate 2-19 Intramuscu it y of 100 mg/mL 00:00: lar route [place] as injection 00 weekly. Medical Branch testosteron 2020-0 Yes [id number] 80mg 0.8 mL by Univers e cypionate 2-19 Intramuscu it y of 100 mg/mL 00:00: lar route [place] as injection 00 weekly. Medical Branch testosteron 2020-0 Yes [id number] 80mg 0.8 mL by Univers e cypionate 2-19 Intramuscu it y of 100 mg/mL 00:00: lar route [place] as injection 00 weekly. Medical Branch testosteron 2020-0 Yes [id number] 80mg 0.8 mL by Univers e cypionate 2-19 Intramuscu it y of 100 mg/mL 00:00: lar route [place] as injection 00 weekly. Medical Branch testosteron 2020-0 Yes [id number] 80mg 0.8 mL by Univers e cypionate 2-19 Intramuscu it y of 100 mg/mL 00:00: lar route [place] as injection 00 weekly. Medical Branch testosteron 2020-0 Yes [id number] 80mg 0.8 mL by Univers e cypionate 2-19 Intramuscu it y of 100 mg/mL 00:00: lar route [place] as injection 00 weekly. Medical Branch testosteron 2020-0 Yes [id number] 80mg 0.8 mL by Univers e cypionate 2-19 Intramuscu it y of 100 mg/mL 00:00: lar route [place] as injection 00 weekly. Medical Branch testosteron 2020-0 Yes [id number] 80mg 0.8 mL by Univers e cypionate 2-19 Intramuscu it y of 100 mg/mL 00:00: lar route [place] as injection 00 weekly. Medical Branch testosteron 2020-0 Yes [id number] 80mg 0.8 mL by Univers e cypionate 2-19 Intramuscu it y of 100 mg/mL 00:00: lar route [place] as injection 00 weekly. Medical Branch testosteron 2020-0 Yes [id number] 80mg 0.8 mL by Univers e cypionate 2-19 Intramuscu it y of 100 mg/mL 00:00: lar route [place] as injection 00 weekly. Medical Branch testosteron 0 2020- No [id number] 80mg 0.8 mL by Univers e cypionate 12-24 Intramuscu i ty of 100 mg/mL 00:00: 00:00 lar route [place] injection 00 :00 weekly. Medical Branch testosteron 0 2020- No [id number] 80mg 0.8 mL by Univers e cypionate 12-24 Intramuscu i ty of 100 mg/mL 00:00: 00:00 lar route [place] injection 00 :00 weekly. Medical Branch testosteron Yes [id number] 80mg 0.8 mL by Univers e cypionate 2-14 Intramuscu it y of 100 mg/mL 00:00: lar route [place] as injection 00 weekly. Medical Branch testosteron Yes [id number] 80mg 0.8 mL by Univers e cypionate 2-14 Intramuscu it y of 100 mg/mL 00:00: lar route [place] as injection 00 weekly. Medical Branch testosteron 2019- No [id number] 80mg 0.8 mL by Univers e cypionate 12-19 Intramuscu i ty of 100 mg/mL 00:00: 00:00 lar route [place] injection 00 :00 weekly. Medical Branch Syringe 2018-11 Yes [id number] Use as Univ ers with 2-16 directed ity of Needle, 00:00: once a [place] Disp, 1 mL 00 week Medical 20 gauge x Branch 1" Syrg Syringe 2018-11 Yes [id number] Use as Univ ers with 2-16 directed ity of Needle, 00:00: once a [place] Disp, 1 mL 00 week Medical 20 gauge x Branch 1" Syrg Syringe 2018-11 Yes [id number] Use as Univ ers with 2-16 directed ity of Needle, 00:00: once a [place] Disp, 1 mL 00 week Medical 20 gauge x Branch 1" Syrg Syringe 2018-11 Yes [id number] Use as Univ ers with 2-16 directed ity of Needle, 00:00: once a [place] Disp, 1 mL 00 week Medical 20 gauge x Branch 1" Syrg Syringe 2018-11 Yes [id number] Use as Univ ers with 2-16 directed ity of Needle, 00:00: once a [place] Disp, 1 mL 00 week Medical 20 gauge x Branch 1" Syrg Syringe 2019- Yes [id number] Use as Univ ers with 2-16 directed ity of Needle, 00:00: once a [place] Disp, 1 mL 00 week Medical 20 gauge x Branch 1" Syrg Syringe 2018- Yes [id number] Use as Univ ers with 2-16 directed ity of Needle, 00:00: once a [place] Disp, 1 mL 00 week Medical 20 gauge x Branch 1" Syrg Syringe 2018- Yes [id number] Use as Univ ers with 2-16 directed ity of Needle, 00:00: once a [place] Disp, 1 mL 00 week Medical 20 gauge x Branch 1" Syrg Syringe 2018- Yes [id number] Use as Univ ers with 2-16 directed ity of Needle, 00:00: once a [place] Disp, 1 mL 00 week Medical 20 gauge x Branch 1" Syrg Syringe 2018- Yes [id number] Use as Univ ers with 2-16 directed ity of Needle, 00:00: once a [place] Disp, 1 mL 00 week Medical 20 gauge x Branch 1" Syrg Syringe 2018- Yes [id number] Use as Univ ers with 2-16 directed ity of Needle, 00:00: once a [place] Disp, 1 mL 00 week Medical 20 gauge x Branch 1" Syrg Syringe 2018- Yes [id number] Use as Univ ers with 2-16 directed ity of Needle, 00:00: once a [place] Disp, 1 mL 00 week Medical 20 gauge x Branch 1" Syrg Syringe 2018- Yes [id number] Use as Univ ers with 2-16 directed ity of Needle, 00:00: once a [place] Disp, 1 mL 00 week Medical 20 gauge x Branch 1" Syrg Syringe 2018- Yes [id number] Use as Univ ers with 2-16 directed ity of Needle, 00:00: once a [place] Disp, 1 mL 00 week Medical 20 gauge x Branch 1" Syrg Syringe 2018- Yes [id number] Use as Univ ers with 2-16 directed ity of Needle, 00:00: once a [place] Disp, 1 mL 00 week Medical 20 gauge x Branch 1" Syrg testosteron 2019- Yes [id number] 80mg 0.8 mL by Univers e cypionate 2-16 Intramuscu it y of 100 mg/mL 00:00: lar route [place] as injection 00 weekly. Medical Branch Syringe 2018-11 Yes [id number] Use as Univ ers with 2-16 directed ity of Needle, 00:00: once a [place] Disp, 1 mL 00 week Medical 20 gauge x Branch 1" Syrg testosteron 2018-11 Yes [id number] 80mg 0.8 mL by Univers e cypionate 2-16 Intramuscu it y of 100 mg/mL 00:00: lar route [place] as injection 00 weekly. Medical Branch Syringe 2018-11 Yes [id number] Use as Univ ers with 2-16 directed ity of Needle, 00:00: once a [place] Disp, 1 mL 00 week Medical 20 gauge x Branch 1" Syrg testosteron 2018-11 Yes [id number] 80mg 0.8 mL by Univers e cypionate 2-16 Intramuscu it y of 100 mg/mL 00:00: lar route [place] as injection 00 weekly. Medical Branch Syringe 2018-11 Yes [id number] Use as Univ ers with 2-16 directed ity of Needle, 00:00: once a [place] Disp, 1 mL 00 week Medical 20 gauge x Branch 1" Syrg testosteron 2018-11 Yes [id number] 80mg 0.8 mL by Univers e cypionate 2-16 Intramuscu it y of 100 mg/mL 00:00: lar route [place] as injection 00 weekly. Medical Branch Syringe 2018-11 Yes [id number] Use as Univ ers with 2-16 directed ity of Needle, 00:00: once a [place] Disp, 1 mL 00 week Medical 20 gauge x Branch 1" Syrg Syringe 2018-11 Yes [id number] Use as Univ ers with 2-16 directed ity of Needle, 00:00: once a [place] Disp, 1 mL 00 week Medical 20 gauge x Branch 1" Syrg Syringe 2018-11 2020- No [id number] Use as Uni vers with -07-21 directed ity of Needle, 00:00: 00:00 once a [place] Disp, 1 mL 00 :00 week Medical 20 gauge x Branch 1" Syrg Syringe 2018-11 2020- No [id number] Use as Uni vers with -07-21 directed ity of Needle, 00:00: 00:00 once a [place] Disp, 1 mL 00 :00 week Medical 20 gauge x Branch 1" Syrg testosteron 2018-11 2020- No [id number] 80mg 0.8 mL by Univers e cypionate -16 12-19 Intramuscu i ty of 100 mg/mL 00:00: 00:00 lar route [place] injection 00 :00 weekly. [facility] Branch gabapentin 2018-11 Yes 800mg Take 800 Un [place] 800 mg 2-11 mg by ity of tablet 14:36: mouth. [address] gabapentin 2018-11 Yes 800mg Take 800 Un [place] 800 mg 2-11 mg by ity of tablet 14:36: mouth. [address] gabapentin 2018-11 Yes 800mg Take 800 Un [place] 800 mg 2-11 mg by ity of tablet 14:36: mouth. [address] gabapentin 2018-11 Yes 800mg Take 800 Un [place] 800 mg 2-11 mg by ity of tablet 14:36: mouth. [address] gabapentin 2018-11 Yes 800mg Take 800 Un [place] 800 mg 2-11 mg by ity of tablet 14:36: mouth. [address] gabapentin 2018-11 Yes 800mg Take 800 Un [place] 800 mg 2-11 mg by ity of tablet 14:36: mouth. [address] gabapentin 2018-11 Yes 800mg Take 800 Un [place] 800 mg 2-11 mg by ity of tablet 14:36: mouth. [address] gabapentin 2018-11 Yes 800mg Take 800 Un [place] 800 mg 2-11 mg by ity of tablet 14:36: mouth. [address] gabapentin 2018-11 Yes 800mg Take 800 Un [place] 800 mg 2-11 mg by ity of tablet 14:36: mouth. [address] gabapentin 2018-11 Yes 800mg Take 800 Un [place] 800 mg 2-11 mg by ity of tablet 14:36: mouth. [address] gabapentin 2018-11 Yes 800mg Take 800 Un [place] 800 mg 2-11 mg by ity of tablet 14:36: mouth. [address] gabapentin 2018-11 Yes 800mg Take 800 Un [place] 800 mg 2-11 mg by ity of tablet 14:36: mouth. [address] gabapentin 2018-11 Yes 800mg Take 800 Un [place] 800 mg 2-11 mg by ity of tablet 14:36: mouth. [address] gabapentin 2018-11 Yes 800mg Take 800 Un [place] 800 mg 2-11 mg by ity of tablet 14:36: mouth. [address] Branch gabapentin 2018- Yes 800mg Take 800 Un [place] 800 mg 2-11 mg by ity of tablet 14:36: mouth. [address] gabapentin 2018-11 Yes 800mg Take 800 Un [place] 800 mg 2-11 mg by ity of tablet 14:36: mouth. [address] gabapentin 2018- Yes 800mg Take 800 Un [place] 800 mg 2-11 mg by ity of tablet 14:36: mouth. [address] Branch gabapentin 2018-11 Yes 800mg Take 800 Un [place] 800 mg 2-11 mg by ity of tablet 14:36: mouth. [address] gabapentin 2018- Yes 800mg Take 800 Un [place] 800 mg 2-11 mg by ity of tablet 14:36: mouth. [address] gabapentin 2018-11 Yes 800mg Take 800 Un [place] 800 mg 2-11 mg by ity of tablet 14:36: mouth. [address] gabapentin 2018- Yes 800mg Take 800 Un [place] 800 mg 2-11 mg by ity of tablet 14:36: mouth. [address] gabapentin 2018- Yes 800mg Take 800 Un [place] 800 mg 2-11 mg by ity of tablet 14:36: mouth. [address] gabapentin 2018- Yes 800mg Take 800 Un [place] 800 mg 2-11 mg by ity of tablet 14:36: mouth. [address] gabapentin 2018- Yes 800mg Take 800 Un [place] 800 mg 2-11 mg by ity of tablet 14:36: mouth. [address] Branch gabapentin 2018- Yes 800mg Take 800 Un [place] 800 mg 2-11 mg by ity of tablet 14:36: mouth. [address] gabapentin 2018- Yes 800mg Take 800 Un melchor 800 mg 2-11 mg by ity of tablet 14:36: mouth. [address] gabapentin 2018- Yes 800mg Take 800 Un melchor 800 mg 2-11 mg by ity of tablet 14:36: mouth. [address] gabapentin 2018- Yes 800mg Take 800 Un mel[place] 800 mg 2-11 mg by ity of tablet 14:36: mouth. [address] gabapentin 2018- Yes 800mg Take 800 Un mel[place] 800 mg 2-11 mg by ity of tablet 14:36: mouth. [address] gabapentin 2019- Yes 800mg Take 800 Un mel[place] 800 mg 2-11 mg by ity of tablet 08:36: mouth. [address] predniSONE 2019- Yes TK 1 T PO Un melchor 5 mg tablet -29 BID ity of 00:00: [place] [facility] predniSONE 2019- Yes TK 1 T PO Un melchor 5 mg tablet - BID ity of 00:00: [place] [facility] predniSONE 2019- Yes TK 1 T PO Un melchor 5 mg tablet - BID ity of 00:00: [address] predniSONE 2019- Yes TK 1 T PO Un melchor 5 mg tablet 12-03 BID ity of 00:00: [address] predniSONE 2019- Yes TK 1 T PO Un melchor 5 mg tablet 12-03 BID ity of 00:00: [address] predniSONE 2019- Yes TK 1 T PO Un melchor 5 mg tablet 12-03 BID ity of 00:00: [address] predniSONE 2019- Yes TK 1 T PO Un melchor 5 mg tablet 12-03 BID ity of 00:00: [address] predniSONE 2019- Yes TK 1 T PO Un melchor 5 mg tablet 12-03 BID ity of 00:00: [address] predniSONE 2019- Yes TK 1 T PO Un melchor 5 mg tablet 12-03 BID ity of 00:00: [address] predniSONE 2019- Yes TK 1 T PO Un melchor 5 mg tablet 12-03 BID ity of 00:00: [address] predniSONE 2019- Yes TK 1 T PO Un melchor 5 mg tablet 12-03 BID ity of 00:00: [address] predniSONE 2019- Yes TK 1 T PO Un melchor 5 mg tablet - BID ity of 00:00: [address] predniSONE 2019- Yes TK 1 T PO Un melchor 5 mg tablet 12-03 BID ity of 00:00: [address] predniSONE 2019- Yes TK 1 T PO Un melchor 5 mg tablet 12-03 BID ity of 00:00: [address] predniSONE 2019- Yes TK 1 T PO Un melchor 5 mg tablet - BID ity of 00:00: [place] [id number] [facility] predniSONE 2019- Yes TK 1 T PO Un melchor 5 mg tablet 12-03 BID ity of 00:00: [place] [facility] predniSONE 2019- Yes TK 1 T PO Un melchor 5 mg tablet 12-03 BID ity of 00:00: [place] [facility] predniSONE 2019- Yes TK 1 T PO Un melchor 5 mg tablet 12-03 BID ity of 00:00: [place] [facility] predniSONE 2019- Yes TK 1 T PO Un melchor 5 mg tablet 12-03 BID ity of 00:: [place] [facility] predniSONE 2019- Yes TK 1 T PO Un melchor 5 mg tablet 12-03 BID ity of 00:: [place] [facility] predniSONE 2019- Yes TK 1 T PO Un melchor 5 mg tablet 12-03 BID ity of 00:: [place] [facility] predniSONE 2019- Yes TK 1 T PO Un melchor 5 mg tablet 12-03 BID ity of 00:00: [address] predniSONE 2019- Yes TK 1 T PO Un melchor 5 mg tablet 12-03 BID ity of 00:: [place] [facility] predniSONE 2019- Yes TK 1 T PO Un melchor 5 mg tablet 12-03 BID ity of 00:00: [address] predniSONE 2019- Yes TK 1 T PO Un melchor 5 mg tablet 12-03 BID ity of 00:00: [place] [facility] predniSONE 2019- Yes TK 1 T PO Un melchor 5 mg tablet 12-03 BID ity of 00:00: [place] [facility] predniSONE 2019- Yes TK 1 T PO Un melchor 5 mg tablet 12-03 BID ity of 00:00: [place] [facility] predniSONE 2019- Yes TK 1 T PO Un melchor 5 mg tablet 12-03 BID ity of 00:00: [place] [facility] predniSONE 2019- Yes TK 1 T PO Un melchor 5 mg tablet 12-03 BID ity of 00:00: [address] predniSONE 2019- Yes TK 1 T PO Un melchor 5 mg tablet 12-03 BID ity of 00:00: [address] predniSONE 2019-0 Yes 5mg Q.5D Take [address] [facility] [address] [facility] (DELTASONE) 9-11 by mouth 2 Dianne kes 5 MG tablet 14:01: (two) Medic al 49 times Center daily. gabapentin Yes 800mg [id number] Take [address] (NEURONTIN) 9-11 [id number] mg by L ukes 800 MG 14:01: 3D mouth 3 Medical tablet 49 (three) Center times daily. oxyCODONE-a Yes 1{tbl} Take [address] cetaminophe 9-11 tablet by [facility] es n 14:01: mouth Medical (PERCOCET) 49 every 4 Center 10-325 mg (four) per tablet hours as needed for Pain. esomeprazol Yes 40mg Take [address] [facility] (NEXIUM) 9-11 by mouth [facility] 40 MG 14:01: as needed. Medica l capsule 49 Center teriparatid Yes QD Inject [facility] (FORTEO 9-11 subcutaneo [facility] SUBQ) 14:01: usly daily Medica l 49 . Center testosteron Yes 200mg Q7D Inject [address] [facility] cypionate 9-11 mg [facility] (DEPOTESTOT 14:01: intramuscu Medical ERONE 49 larly once Center CYPIONATE) a week. 200 mg/mL injection Vitamin D3 Vitamin D3 Yes CJ Take 1 UT 1.25 MG 1.25 MG 3-30 CHEN PA capsule a [facility] (27341 UT) (82980 UT) 00:00: week for ans Oral Oral 00 12 weeks. Capsule Capsule esomeprazol Yes Univer s e 40 mg 3-23 ity of capsule 00:00: [place] [facility] esomeprazol Yes Univer s e 40 mg 3-23 ity of capsule 00:00: [place] [facility] esomeprazol Yes Univer s e 40 mg 3-23 ity of capsule 00:00: [place] [facility] esomeprazol Yes Univer s e 40 mg 3-23 ity of capsule 00:00: [place] [facility] esomeprazol Yes Univer s e 40 mg 3-23 ity of capsule 00:00: [place] [facility] esomeprazol Yes Univer s e 40 mg 3-23 ity of capsule 00:00: [place] [facility] esomeprazol 2017-0 Yes Univer s e 40 mg 3-23 ity of capsule 00:00: [place] 00 [facility] esomeprazol 2017-0 Yes Univer s e 40 mg 3-23 ity of capsule 00:00: [place] [facility] esomeprazol 2017-0 Yes Univer s e 40 mg 3-23 ity of capsule 00:00: [place] [facility] esomeprazol 2017-0 Yes Univer s e 40 mg 3-23 ity of capsule 00:00: [place] [facility] esomeprazol 2017-0 Yes Univer s e 40 mg 3-23 ity of capsule 00:00: [place] [facility] esomeprazol 2017-0 Yes Univer s e 40 mg 3-23 ity of capsule 00:00: [place] [facility] esomeprazol 2017-0 Yes Univer s e 40 mg 3-23 ity of capsule 00:00: [place] [facility] esomeprazol 2017-0 Yes Univer s e 40 mg 3-23 ity of capsule 00:00: [place] [facility] esomeprazol 2017-0 Yes Univer s e 40 mg 3-23 ity of capsule 00:00: [place] [facility] esomeprazol 2017-0 Yes Univer s e 40 mg 3-23 ity of capsule 00:00: [place] [facility] esomeprazol 2017-0 Yes Univer s e 40 mg 3-23 ity of capsule 00:00: [place] [facility] esomeprazol 2017-0 Yes Univer s e 40 mg 3-23 ity of capsule 00:00: [place] [facility] esomeprazol 2017-0 Yes Univer s e 40 mg 3-23 ity of capsule 00:00: [place] [facility] esomeprazol 2017-0 Yes Univer s e 40 mg 3-23 ity of capsule 00:00: [place] [facility] esomeprazol 2017-0 Yes Univer s e 40 mg 3-23 ity of capsule 00:00: [place] [facility] esomeprazol 2017-0 Yes Univer s e 40 mg 3-23 ity of capsule 00:00: [place] [facility] esomeprazol 2017-0 Yes Univer s e 40 mg 3-23 ity of capsule 00:00: [place] 00 [facility] esomeprazol [id number] Yes Univer s e 40 mg 3-23 ity of capsule 00:00: [place] [facility] esomeprazol 2017-0 Yes Univer s e 40 mg 3-23 ity of capsule 00:00: [place] [facility] esomeprazol 0 Yes Univer s e 40 mg 3-23 ity of capsule 00:00: [place] [facility] esomeprazol 2016-0 Yes Univer s e 40 mg 3-23 ity of capsule 00:00: [place] [facility] esomeprazol 0 Yes Univer s e 40 mg 3-23 ity of capsule 00:00: [place] [facility] esomeprazol 0 Yes Univer s e 40 mg 3-23 ity of capsule 00:00: [place] [facility] esomeprazol 0 Yes [facility] 40 mg 3-23 ity of capsule 00:00: [place] [facility] oxyCODONE-a 0 Yes Wild agarwal cetaminophe 3-07 ity of n 10-325 mg 00:00: [place] per tablet 00 Medical Branch oxyCODONE-a 0 Yes Wild agarwal cetaminophe 3-07 ity of n 10-325 mg 00:00: [place] per tablet 00 Medical Branch oxyCODONE-a 2016-0 Yes Wild agarwal cetaminophe 3-07 ity of n 10-325 mg 00:00: [place] per tablet 00 Medical Branch oxyCODONE-a 2017-0 Yes Wild agarwal cetaminophe 3-07 ity of n 10-325 mg 00:00: [place] per tablet 00 Medical Branch oxyCODONE-a 2016-0 Yes Wild s cetaminophe 3-07 ity of n 10-325 mg 00:00: [place] per tablet 00 Medical Branch oxyCODONE-a 0 Yes Wild s cetaminophe 3-07 ity of n 10-325 mg 00:00: [place] per tablet 00 Medical Branch oxyCODONE-a 2016-0 Yes Wild agarwal cetaminophe 3-07 ity of n 10-325 mg 00:00: [place] per tablet 00 Medical Branch oxyCODONE-a 0 Yes Wild s cetaminophe 3-07 ity of n 10-325 mg 00:00: [place] per tablet 00 Medical Branch oxyCODONE-a 0 Yes Univer s cetaminophe 3-07 ity of n 10-325 mg 00:00: [place] per tablet 00 Medical Branch oxyCODONE-a 0 Yes Univer s cetaminophe 3-07 ity of n 10-325 mg 00:00: [place] per tablet 00 Medical Branch oxyCODONE-a 0 Yes Wild s cetaminophe 3-07 ity of n 10-325 mg 00:00: [place] per tablet 00 Medical Branch oxyCODONE-a Yes Wild s cetaminophe 3-07 ity of n 10-325 mg 00:00: [place] per tablet 00 Medical Branch oxyCODONE-a Yes Wild s cetaminophe 3-07 ity of n 10-325 mg 00:00: [place] per tablet 00 Medical Branch oxyCODONE-a Yes Wild s cetaminophe 3-07 ity of n 10-325 mg 00:00: [place] per tablet 00 Medical Branch oxyCODONE-a Yes Wild s cetaminophe 3-07 ity of n 10-325 mg 00:00: [place] per tablet 00 Medical Branch oxyCODONE-a 0 Yes Wild s cetaminophe 3-07 ity of n 10-325 mg 00:00: [place] per tablet 00 Medical Branch oxyCODONE-a 0 Yes Wild s cetaminophe 3-07 ity of n 10-325 mg 00:00: [place] per tablet 00 Medical Branch oxyCODONE-a 0 Yes Wild s cetaminophe 3-07 ity of n 10-325 mg 00:00: [place] per tablet 00 Medical Branch oxyCODONE-a Yes Wild s cetaminophe 3-07 ity of n 10-325 mg 00:00: [place] per tablet 00 Medical Branch oxyCODONE-a Yes Wild s cetaminophe 3-07 ity of n 10-325 mg 00:00: [place] per tablet 00 Medical Branch oxyCODONE-a Yes Wild s cetaminophe 3-07 ity of n 10-325 mg 00:00: [place] per tablet 00 [facility] oxyCODONE-a Yes [facility] cetaminophe 3-07 ity of n 10-325 mg 00:00: [place] per tablet 00 [facility] oxyCODONE-a Yes Univer s cetaminophe 3-07 ity of n 10-325 mg 00:00: [place] per tablet [facility] oxyCODONE-a [facility]y of n 10-325 mg 00:00: [place] per tablet 00 [facility] oxyCODONE-a Yes [facility] cetaminophe 3-07 ity of n 10-325 mg 00:00: [place] per tablet [facility] oxyCODONE-a Yes Wild s cetaminophe 3-07 ity of n 10-325 mg 00:00: [place] per tablet [facility] oxyCODONE-a Yes Wild s cetaminophe 3-07 ity of n 10-325 mg 00:00: [place] per tablet [facility] oxyCODONE-a [facility] ity of n 10-325 mg 00:00: [place] per tablet [facility] oxyCODONE-a Yes [facility] cetaminophe 3-07 ity of n 10-325 mg 00:00: [place] per tablet [facility] oxyCODONE-a Yes [facility] ity of n 10-325 mg 00:00: [place] per tablet 00 [facility] predniSONE predniSONE Yes Q0.5D TAKE 1 UT 5 MG Oral 5 MG Oral 2-08 TABLET Phy [facility]ici Tablet Tablet 00:00: TWICE ans 00 DAILY. fentaNYL fentaNYL Yes APPLY 1 UT 100 MCG/HR 100 MCG/HR 2-08 PATCH Ph [facility] Transdermal Transdermal 00:00: EVERY 3 ans Patch 72 Patch 72 00 DAYS Hour Hour Morphine Morphine Yes 1 TAKE 1 UT Sulfate 30 Sulfate 30 2-08 TABLET P [facility]ysici MG Oral MG Oral 00:00: EVERY 4 TO a ns Tablet Tablet 00 6 HOURS DIRECTED. Cyclobenzap Cyclobenzap Yes 2 Q0.3333D TAKE 2 UT rine HCl - rine HCl - 2-08 TABLET 3 [facility] 10 MG Oral 10 MG Oral 00:00: TIMES ans Tablet Tablet 00 DAILY Amitriptyli Amitriptyli 2016-0 Yes EMIR 1 TAKE 1 UT ne HCl - 25 ne HCl - 25 2-08 KATIE Lima TABLET AT [facility] MG Oral MG Oral 00:00: BEDTIME. ans Tablet Tablet 00 teriparatid Yes [id number] 20ug inject Univers e (FORTEO) 1-31 0.08 mL ity of 20 mcg/dose 00:00: [place] the [place] - 600 00 skin Medical mcg/2.4 mL daily. Branch injection teriparatid Yes [id number] 20ug inject Univers e (FORTEO) 1-31 0.08 mL ity of 20 mcg/dose 00:00: [place] the [place] - 600 00 skin Medical mcg/2.4 mL daily. Branch injection teriparatid Yes [id number] 20ug inject Univers e (FORTEO) 1-31 0.08 mL ity of 20 mcg/dose 00:00: [place] the [place] - 600 00 skin Medical mcg/2.4 mL daily. Branch injection teriparatid Yes [id number] 20ug inject Univers e (FORTEO) 1-31 0.08 mL ity of 20 mcg/dose 00:00: [place] the [place] - 600 00 skin Medical mcg/2.4 mL daily. Branch injection teriparatid Yes [id number] 20ug inject Univers e (FORTEO) 1-31 0.08 mL ity of 20 mcg/dose 00:00: [place] the [place] - 600 00 skin Medical mcg/2.4 mL daily. Branch injection teriparatid Yes [id number] 20ug inject Univers e (FORTEO) 1-31 0.08 mL ity of 20 mcg/dose 00:00: [place] the [place] - 600 00 skin Medical mcg/2.4 mL daily. Branch injection teriparatid Yes [id number] 20ug inject Univers e (FORTEO) 1-31 0.08 mL ity of 20 mcg/dose 00:00: [place] the [place] - 600 00 skin Medical mcg/2.4 mL daily. Branch injection teriparatid Yes [id number] 20ug inject Univers e (FORTEO) 12-05 0.08 mL ity of 20 mcg/dose 00:00: [place] the [place] - 600 00 skin Medical mcg/2.4 mL daily. Branch injection teriparatid Yes [id number] 20ug inject Univers e (FORTEO) 12-05 0.08 mL ity of 20 mcg/dose 00:00: [place] the [place] - 600 00 skin Medical mcg/2.4 mL daily. Branch injection teriparatid Yes [id number] 20ug inject Univers e (FORTEO) 12-05 0.08 mL ity of 20 mcg/dose 00:00: [place] the [place] - 600 00 skin Medical mcg/2.4 mL daily. Branch injection teriparatid Yes [id number] 20ug inject Univers e (FORTEO) 12-05 0.08 mL ity of 20 mcg/dose 00:00: [place] the [place] - 600 00 skin Medical mcg/2.4 mL daily. Branch injection teriparatid Yes [id number] 20ug inject Univers e (FORTEO) 12-05 0.08 mL ity of 20 mcg/dose 00:00: [place] the [place] - 600 00 skin Medical mcg/2.4 mL daily. Branch injection teriparatid 2020- No [id number] 20ug inject Univers e (FORTEO) 12-05 06-10 0.08 mL ity o f 20 mcg/dose 00:00: 00:00 under the [place] - 600 00 :00 skin Medical mcg/2.4 mL daily. Branch injection teriparatid 2020- No [id number] 20ug inject Univers e (FORTEO) 12-05 06-10 0.08 mL ity o f 20 mcg/dose 00:00: 00:00 under the [place] - 600 00 :00 skin Medical mcg/2.4 mL daily. Branch injection Immunizations Ordered Filled Immunization Date Status Comments [facility] Branch e Immunization Name Name Td 2011-02-16 Completed [facility] 00:00:00 PPD (TB) 2009-01-20 Completed [facility] 00:00:00 [facility] PPD (TB) 2009-01-20 Completed [facility] 00:00:00 [facility] PPD (TB) 2009-01-20 Completed [facility] 00:00:00 [facility] PPD (TB) 2009-01-20 Completed University of 00:00:00 [facility] PPD (TB) 2009-01-20 Completed University of 00:00:00 [facility] PPD (TB) 2009-01-20 Completed University of 00:00:00 [facility] PPD (TB) 2009-01-20 Completed University of 00:00:00 [facility] PPD (TB) 2009-01-20 Completed University of 00:00:00 [facility] PPD (TB) 2009-01-20 Completed University of 00:00:00 [facility] PPD (TB) 2009-01-20 Completed University of 00:00:00 [facility] PPD (TB) 2009-01-20 Completed University of 00:00:00 [facility] PPD (TB) 2009-01-20 Completed University of 00:00:00 [facility] PPD (TB) 2009-01-20 Completed University of 00:00:00 [facility] PPD (TB) 2009-01-20 Completed University of 00:00:00 [facility] PPD (TB) 2009-01-20 Completed University of 00:00:00 [facility] PPD (TB) 2009-01-20 Completed University of 00:00:00 [facility] PPD (TB) 2009-01-20 Completed University of 00:00:00 [facility] PPD (TB) 2009-01-20 Completed University of 00:00:00 [facility] PPD (TB) 2009-01-20 Completed University of 00:00:00 [facility] PPD (TB) 2009-01-20 Completed University of 00:00:00 [facility] PPD (TB) 2009-01-20 Completed University of 00:00:00 [facility] PPD (TB) 2009-01-20 Completed University of 00:00:00 [facility] PPD (TB) 2009-01-20 Completed University of 00:00:00 [facility] PPD (TB) 2009-01-20 Completed University of 00:00:00 [facility] PPD (TB) 2009-01-20 Completed University of 00:00:00 [facility] PPD (TB) 2009-01-20 Completed University of 00:00:00 [facility] PPD (TB) 2009-01-20 Completed University of 00:00:00 [facility] PPD (TB) 2009-01-20 Completed University of 00:00:00 [facility] PPD (TB) 2009-01-20 Completed University of 00:00:00 [facility] PPD (TB) 2009-01-20 Completed University of 00:00:00 [facility] PPD (TB) 2009-01-20 Completed University of 00:00:00 [facility] PPD (TB) 2009-01-20 Completed University of 00:00:00 [facility] PPD (TB) 2009-01-20 Completed University of 00:00:00 [facility] PPD (TB) 2009-01-20 Completed University of 00:00:00 [facility] PPD (TB) 2009-01-20 Completed University of 00:00:00 [facility] PPD (TB) 2009-01-20 Completed University of 00:00:00 [facility] PPD (TB) 2009-01-20 Completed University of 00:00:00 [facility] PPD (TB) 2009-01-20 Completed University of 00:00:00 [facility] PPD (TB) 2009-01-20 Completed University of 00:00:00 [facility] PPD (TB) 2009-01-20 Completed University of 00:00:00 [facility] PPD (TB) 2009-01-20 Completed University of 00:00:00 [facility] PPD (TB) 2009-01-20 Completed University of 00:00:00 [facility] PPD (TB) 2009-01-20 Completed University of 00:00:00 [facility] PPD (TB) 2009-01-20 Completed University of 00:00:00 [facility] PPD (TB) 2009-01-20 Completed University of 00:00:00 [facility] PPD (TB) 2009-01-20 Completed University of 00:00:00 [facility] PPD (TB) 2009-01-20 Completed University of 00:00:00 [facility] PPD (TB) 2009-01-20 Completed University of 00:00:00 [facility] PPD (TB) 2009-01-20 Completed University of 00:00:00 [facility] PPD (TB) 2009-01-20 Completed University of 00:00:00 [facility] PPD (TB) 2009-01-20 Completed University of 00:00:00 [facility] PPD (TB) 2009-01-20 Completed University of 00:00:00 [facility] PPD (TB) 2009-01-20 Completed University of 00:00:00 [facility] PPD (TB) 2009-01-20 Completed University of 00:00:00 [facility] PPD (TB) 2009-01-20 Completed University of 00:00:00 [facility] PPD (TB) 2009-01-20 Completed University of 00:00:00 [facility] PPD (TB) 2009-01-20 Completed University of 00:00:00 [facility] PPD (TB) 2009-01-20 Completed University of 00:00:00 [facility] PPD (TB) 2009-01-20 Completed University of 00:00:00 [facility] PPD (TB) 2009-01-20 Completed University of 00:00:00 [facility] Vital Signs Vital Name Observation Time Observation Value Comments Source Body height 2021-12-20 16:05:00 [facility]3 [facility] 2021-12-20 16:05:[facility] 2021-12-20 16:05:00 24.81 kg/m2 [facility] Systolic blood 2020-07-21 18:47:00 109 mm[Hg] Univer sity of pressure [facility] Diastolic blood 2020-07-21 18:47:00 74 mm[Hg] Unive rsity of pressure [facility] Heart rate 2020-07-21 18:47:00 104 /min [facility] Body height 2020-07-21 18:47:00 172.7 cm [facility] Body weight 2020-07-21 18:47:00 69.4 kg [facility] BMI 2020-07-21 18:47:00 23[facility]26 [facility] Oxygen saturation in 2020-07-21 18:47:00 98 /min [facility] Arterial blood by [facility] Pulse oximetry Branch Systolic blood 2020-07-21 18:47:00 109 mm[Hg] Univer sity of pressure [facility] Diastolic blood 2020-07-21 18:47:00 74 mm[Hg] Unive rsity of pressure [facility] Heart rate 2020-07-21 18:47:00 104 /min [facility] Body height 2020-07-21 18:47:00 172.7 cm [facility] Body weight 2020-07-21 18:47:00 69.4 [facility] BMI 2020-07-21 18:47:00 23.26 kg/m2 Univers[facility] Oxygen saturation in 2020-07-21 18:47:00 98 /min [facility] Arterial blood by [facility] Pulse oximetry Branch Systolic blood 2020-04-14 16:07:00 120 mm[Hg] Univer sity of pressure [facility] Diastolic blood 2020-04-14 16:07:00 82 mm[Hg] Unive rsity of [facility] Heart rate 2020-04-14 16:07:00 101 /min [facility] Respiratory rate 2020-04-14 16:07:00 18 /min Univ ersity of [facility] Body weight 2020-04-14 16:07:00 71.668 kg [facility] BMI 2020-04-14 16:07:00 21.43 kg/m2 [facility] Height 2018-05-31 14:24:00 71 [in_us] [facility] Weight 2018-05-31 14:24:00 180 [lb_av] [facility] Body Mass Index 2018-05-31 14:24:00 25.11 kg/m2 [facility] Calculated Height 2018-04-15 14:55:00 71 [in_us] [facility] Weight 2018-04-15 14:55:00 180 [lb_av] [facility] Body Mass Index 2018-04-15 14:55:00 25.11 kg/m2 [facility] Calculated Procedures Procedure Date / Time Performing Clinician Source Performed REFERRAL- REQUEST/RESPONSE 2020-08-09 05:01:00 Doctor Salmassigned , [facility] REFERRAL- REQUEST/RESPONSE 2020-07-28 05:01:00 Doctor Salmassigned , [facility] AGREEMENTS AUTHORIZATIONS 2019-11-27 06:01:00 Doctor Salmassigned, [facility] AND IRREVOCABLE [facility] ASSIGNMENTS (FORM 2001) [Q] C TELOPEPTIDE (CTX) 2019-04-17 00:00:00 [facility] [Q] PROCOLLAGEN TYPE I 2019-04-17 00:00:00 [facility] INTA[facility] N TERMINAL PROPEPTIDE [Q] VITAMIN D, 25-HYDROXY, 2019-04-17 00:00:00 [facility] LC/MS/MS [QLH] CMP W/EGFR 2019-04-17 00:00:00 [facility] [[facility]] MAGNESIUM 2019-04-17 00:00:00 [facility] [QLH] PHOSPHATE ( 2019-04-17 00:00:00 [facility] PHOSPHORUS) [QLH] PTH, INTACT (WITHOUT 2019-04-17 00:00:00 [facility] CALCIUM) [QLH] TSH, 3RD GENERATION 2019-04-17 00:00:00 [facility] W/REFLEX TO FT4 [O] Dexa Scan ([employer] 2019-04-17 00:00:00 [facility] X-Ray) [id number] [U] XRAY ELBOW MIN 3 VWS 2018-08-09 00:00:00 [facility] LEFT [id number] [QLH] SED RATE BY MODIFIED 2018-04-15 00:00:00 [facility] WESTERGREN [QLH] C-REACTIVE PROTEIN 2018-04-15 00:00:00 [facility] History of Cholecystectomy [facility] History of [facility] Knee [facility] Replacement Left History of Total Knee [facility] Replacement Right History of Total Hip [facility] Replacement [facility] of Shoulder [facility] Arthroplasty Total Shoulder Replacement History [facility] Amputation Of [facility] Leg Below Knee Re-amputation Plan of Care Planned Activity Planned Date Details Comments Source Future Scheduled 2029-07-[address] [facility] [address] [facility] Test 00:00:00 malignant neoplasm of [facility] colon (procedure) [code = 492330213] Future Scheduled 2020-07-06 INFLUENZA VACCINE (#1) [facility] 00:00:00 [code = INFLUENZA Medical Ce nter VACCINE (#1)] Future Scheduled 2019-12-[address] [facility] 00:00:00 WELLNESS (YEAR 2 or Medical Center FIRST YEAR if no IPPE) [code = MEDICARE ANNUAL WELLNESS (YEAR 2 or FIRST YEAR if no IPPE)] Future Scheduled [address] [facility] 00:[facility]:00 (procedure) [code = Medical Center 49939159] Future Scheduled [address] [facility] Test 00:00:00 0-64 YRS (1 of 3 - Medical C enter PCV13) [code = PNEUMOCOCCAL VACCINE 0-64 YRS (1 of 3 - PCV13)] Encounters Start End Encounter Admission Attending Care Care Encounter Source Date/Time Date/Time Type Type Clinicians Facility Department ID 2021-12-20 Outpatient [facility] [id number] [place] 10:13:23 Health 2021-12-20 Outpatient [facility] [id number] [place] 10:07:08 Health 2021-12-12 Outpatient ELBA, [facility] [id number] [place] 15:49:45 LINDSEY [facility] 2021-09-22 [facility] [id number] [place] 14:26:36 [facility] 2020-04-16 [facility] [id number] 96- 07:30:00 , Yevgeny [id number] [facility] 2022-08-22 2022-08-22 [facility] [id number] -[id number] Univers 15:00:00 15:00:00 [facility] [id number] [facility] 2022-08-22 2022-08-22 [facility] [id number] Univers 15:00:00 15:00:00 [facility] 2022-02-27 2022-02-27 Outpatient AMBREEN_SANCHEZ [facility] [address] [place] 11:00:00 11:00:00 BINDU 0425 [facility] 2022-02-22 2022-02-22 Telephone [facility] [id number] [facility] 00:00:00 00:00:00 [facility] [id number] it y of [place] 4.2.7.2.686 Florentino as WEI?BLEA [phone] [address] MEDICAL OFFICE BUILDING 2021-12-20 2021-12-20 Office CRISTIANA PRICE [facility] 1.2.840.114 [id number] [place] 10:30:00 10:45:00 Visit AILYN MCKEON AND 350.1.13.58 Health [place] 9.2.7.2.686 MEDICAL [phone] [address] 2021-12-12 2021-12-12 Office CRISTIANA Landeros [facility] 1.2.840.114 [id number] [place] 15:00:00 15:23:42 Visit Lolly MCKEON AND 350.1.13.58 Health [place] 9.2.7.2.686 MEDICAL [phone] [address] 2021-08-23 2021-08-23 Outpatient R JOSEPH [facility] [id number] -[id number] Univers 09:30:00 09:30:00 EDE[facility]IRAONG [id number] [facility] 2021-08-23 2021-08-23 Outpatient R JOSEPH [facility] [id number] Univers 09:30:00 09:30:00 EDELMIRAONG [facility] 2021-08-02 2021-08-02 Outpatient R OJSEPH [facility] [id number] Univers 12:00:00 12:00:00 BLAKE [id number] [facility] 2021-08-02 2021-08-02 [facility] [id number] Univers 12:00:00 12:00:00 EDELMIRAONG [facility] 2021-07-08 2021-07-08 [facility] [id number] -[id number] Univers 11:00:00 11:00:00 ELIAN [id number] [facility] 2021-06-28 2021-06-28 [facility] [id number] -[id number] Univers 11:00:00 11:00:00 ELIAN [id number] [facility] 2020-12-24 2020-12-24 Laboratory Lab, Adc Fam Pob I [facility] 1.2. 840.114 [id number] Univers 15:27:51 15:47:51 Only Irina Hunter [facility] 350.1.13.10 ity [facility] 4.2.7.2.686 Florentino as Professio [phone] [address] Office Building One 2020-12-24 2020-12-24 Outpatient R [facility] [id number] -[id number] Univers 15:40:00 15:40:00 [id number] [facility] 2020-12-24 2020-12-24 Outpatient R JACQUELINE [facility] [id number] [facility] 15:40:00 15:40:00 IRINA ity of [facility] 2020-08-20 2020-08-20 Telephone Jimenez, [facility] 1.2.362.467 [id number] Univers 00:00:00 00:00:00 [place] 350.1.13.10 i ty [place]2.[place].2.[place] [phone] Il dic[address] 2020-08-20 2020-08-20 Telephone Jimenez, [facility] 1.2.844.264 [id number] 00:00:00 00:00:00 [place]ong [place] 350.1.13.10 [place] 4.2.7.2.[address] Professio [phone] [address] 2020-08-19 2020-08-19 Telephone Jimenez, [facility] 1.2.396.300 [id number] Univers 00:00:00 00:00:00 [place]ong [place] 350.1.13.10 i ty [place] 4[place]2.7.2.[place] [phone] Il dic[address] 2020-08-19 2020-08-19 Telephone Jimenez, [facility] 1.2.888.384 [id number] 00:00:00 00:00:00 [place] 350.1.13.10 [place] 4.2.7.2.[address] Profess[address] [phone] [address] 2020-08-09 2020-08-09 Orders Doctor GIA 1.2.840.114 [id number] [facility] 00:00:00 00:00:00 Only Unassigned, DANYELL 350.1.13.10 ity of [place] [facility] 4.2.7.2.686 Florentino as [phone] [address] 2020-08-09 2020-08-09 Orders Doctor GIA 1.2.840.114 [id number] 00:00:00 00:00:00 Only Unassigned, DANYELL 350.1.13.10 [place] [facility] 4.2.7.2.686 [phone] 009 2020-07-29 2020-07-29 Wheel Press Clerk 2, Adc Lab [facility] 1.2.840.114 [id number] Univers 09:40:34 09:55:34 Visit Blake Jimenez 350.1.13.10 ity of [place].2.[place] [phone] Me dical [address] 2020-07-29 2020-07-29 Wheel Press Clerk 2, Adc Lab [facility] 1.2.840.114 [id number] 09:40:34 09:55:34 Visit Maggie 350.1.13.10 [place] 4.2.7.2.686 Professio [phone] [address] 2020-07-29 2020-07-29 Outpatient R [facility] [id number] -[id number] Univers 09:45:00 09:45:00 [id number] [facility] 2020-07-29 2020-07-29 Outpatient R [facility] [id number] Univers 09:45:00 09:45:00 ity of [facility] 2020-07-28 2020-07-28 Outpatient R [facility] [id number] -[id number] Univers 09:00:00 09:00:00 [id number] ity of [facility] 2020-07-28 2020-07-28 Outpatient R [facility] [id number] Univers 09:00:00 09:00:00 ity of [facility] 2020-07-28 2020-07-28 Orders Doctor GIA 1.2.840.114 [id number] Univers 00:00:00 00:00:00 Only Unassigned, DANYELL 350.1.13.10 ity of [place] [facility] 4.2.7.2.686 Florentino as [phone] [address] 2020-07-28 2020-07-28 Orders Doctor GIA 1.2.840.114 [id number] 00:00:00 00:00:00 Only Unassigned, DANYELL 350.1.13.10 [place] [facility] 4.2.7.2.686 [phone] 009 2020-07-21 2020-07-21 Office Joseph [facility] 1.2.840.114 [id number] Univers 13:35:42 14:12:35 Visit Blake Serrano 350.1.13.10 i [place]2.[place].2.[place] [phone] Me dical nal 220 [facility] 2020-07-21 2020-07-21 Office Jimenez, [facility] 1.2.840.114 [id number] 13:35:42 14:12:35 Visit Blake Pisanoton 350.1.13.10 [place] 4.2.7.2.686 Professio [phone] nal 220 [facility] 2020-07-21 2020-07-21 Outpatient R JIMENEZ, [facility] [id number] -[id number] Univers 13:30:00 13:30:00 BLAKE [id number] ity of [facility] 2020-07-21 2020-07-21 Outpatient R JIMENEZ, [facility] [id number] Univers 13:30:00 13:30:00 [facility]IRAONG [facility] 2020-06-30 2020-06-30 Outpatient R JIMENEZ, [facility] [id number] -[id number] Univers 10:00:00 10:00:00 BLAKE [id number] [facility] 2020-06-30 2020-06-30 Outpatient R JIMENEZ, [facility] [id number] Univers 10:00:00 10:00:00 [facility] 2020-06-25 2020-06-25 Letter GIA Diaz 1.2.670.003 [id number] Univers 00:00:00 00:00:00 (Out) Dede CHILD 350.1.13.[address] [facility] 4.2.7.2.686 Florentino as [phone] [address] 2020-06-23 2020-06-23 Laboratory Lab, Adc Fam Pob I [facility] 1.2. 840.114 [id number] Univers 10:13:06 10:33:06 Only Irina Hunter [facility] 350.1.13.10 ity of [place] 4.2.7.2.686 Florentino as Professio [phone] Il dical nal [address] One 2020-06-23 2020-06-23 Outpatient R [facility] [id number] -[id number] Univers 10:20:00 10:20:00 [id number] [facility] 2020-06-23 2020-06-23 Outpatient R [facility] [id number] Univers 10:20:00 10:20:00 ity of [facility] 2020-06-23 2020-06-23 Letter Doctor GIA 1.2.840.114 [id number] Univers 00:00:00 00:00:00 (Out) Unassigned, DANYELL 350.1.13.[address] [place] [facility] 4.2.7.2.686 Florentino as [phone] [address] 2020-05-25 2020-05-25 Office [facility] 1.2.840.114 [id number] Univers 15:30:00 16:00:00 Visit Blake Serrano 350.1.13.10 i ty [place]2.[place].2.[place] [phone] [facility] 220 [facility] 2020-05-25 2020-05-25 [facility] [id number] -20 Univers 15:30:00 15:30:00 BLAKE [id number] ity of [facility] 2020-05-25 2020-05-25 [facility] [id number] Univers 15:30:00 15:30:00 EDELMIRAONG ity of [facility] 2020-04-20 2020-04-20 Telephone [facility] 1.2.476.582 [id number] Univers 00:00:00 00:00:00 Blake Serrano 350.1.13.10 i [place].2.[place] [phone] Il dical [facility] 220 [facility] 2020-04-14 2020-04-14 Wheel Press Clerk Teetee Ceballos Lab Main [facility] 1.2.8 40.114 [id number] Univers 12:10:22 12:25:22 Visit Blake Jimenez 350.1.13.10 it[place] of [place]2.[place].2.[place] [phone] Il dical [facility] 353 [facility] 2020-04-14 2020-04-14 Office [facility] 1.2.840.114 [id number] Univers 10:50:53 11:42:06 Visit Blake Serrano 350.1.13.10 i ty of [place] 4.2.7.2.[place] [phone] Me dical nal 220 [facility] 2020-04-14 2020-04-14 Outpatient R JOSEPH [facility] [id number] -[id number] Univers 11:00:00 11:00:00 EDELMIRAONG [id number] [facility] 2020-04-14 2020-04-14 Outpatient R JOSEPH [facility] [id number] Univers 11:00:00 11:00:00 EDELMIRAONG [facility] 2020-04-13 2020-04-13 Outpatient UNKNOWN HCACL LABO [id number] [facility] 11:15:00 11:15:00 [id number] [facility] 2020-03-30 2020-03-30 Outpatient R JOSEPH [facility] [id number] Univers 15:00:00 15:00:00 [facility] 2020-03-26 2020-03-26 Telephone [facility] 1.2.485.396 [id number] Univers 00:00:00 00:00:00 Blake Serrano 350.1.13.10 i [place]2.[place].2.[place] [phone] Il dical nal 220 [facility] 2020-03-22 2020-03-22 Wheel Press Clerk 2, Adc Lab [facility] 1.2.840.114 [id number] Univers 13:04:13 13:19:13 Visit Blake Jimenez 350.1.13.10 ity [place]2.7.2.[place] [phone] Il dical [facility] 353 [facility] 2020-03-22 2020-03-22 Outpatient [facility] [id number] -[id number] Univers 13:15:00 13:15:00 [id number] ity of [facility] 2020-03-22 2020-03-22 Outpatient R [facility] [id number] Univers 13:15:00 13:15:00 ity of [facility] 2020-03-22 2020-03-22 Telephone [facility] 1.2.894.070 [id number] Univers 00:00:00 00:00:00 Blake Pisanoton 350.1.13.10 i ty [place] 4[place]2.7.2.[place] [phone] [address] 2020-02-25 2020-02-25 Outpatient R JOSEPH [facility] [id number] Univers 09:30:00 09:30:00 BLAKE [id number] [facility] 2020-02-25 2020-02-25 Outpatient R JOSEPH [facility] [id number] Univers 09:30:00 09:30:00 WENTONG [facility] 2020-02-25 2020-02-25 Telemedici [facility] 1.2.840.114 [id number] Univers 08:11:13 08:41:13 ne Visit Wentong [place] 350.1.13.10 ity of [place] 4[place]2.7.2.[place] [phone] [address] 2020-01-09 2020-01-09 Telephone [facility] 1.2.656.361 [id number] Univers 00:00:00 00:00:00 [place]ong [place] 350.1.13.10 i ty [place]2.7.2.[place] [phone] [address] 2019-12-24 2019-12-24 Telephone [facility] 1.2.583.503 [id number] Univers 00:00:00 00:00:00 Wentong [place] 350.1.13.10 i ty of [place] 4.2.7.2.[place] [phone] [address] 2019-12-19 2019-12-19 Refill [facility] 1.2.840.114 [id number] Univers 00:00:00 00:00:00 Wentong [place] 350.1.13.10 i ty [place] 4.2.7.2.686 [place] [phone] [address] 2019-12-19 2019-12-19 Telephone [facility] 1.2.844.509 [id number] Univers 00:00:00 00:00:00 [place] 350.1.13.10 i ty [place] 4.2.[place].2.[place] [phone] Il dical nal 220 [facility] 2019-12-16 2019-12-16 Telephone Joseph, [facility] 1.2.190.578 [id number] Univers 00:00:00 00:00:00 Blake Serrano 350.1.13.10 i [place] 4[place]2.7.2.[place] [phone] Il dical nal 220 [facility] 2019-12-11 2019-12-11 Outpatient AM[facility]EN[facility] [address] [place] 04:50:00 04:50:00 HANA [address] [facility] 2019-12-04 2019-12-04 Telephone Joseph, [facility] 1.2.187.398 [id number] Univers 00:00:00 00:00:00 Blake Serrano 350.1.13.10 i ty [place]2.7.2.[place] [phone] Il dical nal 220 [facility] 2019-11-27 2019-11-27 Wheel Press Clerk 2, Adc Lab [facility] 1.2.840.114 [id number] Univers 13:10:41 13:25:41 Visit Blake Jimenez 350.1.13.10 ity of [place]2.7.2.[place] [phone] Il dical nal 353 [facility] 2019-11-27 2019-11-27 Orders Doctor GIA 1.2.840.114 [id number] Univers 00:00:00 00:00:00 Only Unassigned, DANYELL 350.1.13.[address] [place] [facility] 4.2.7.2.686 Florentino as [phone] [facility] [address] 2019-04-17 2019-04-17 CRISTIANA [facility] [id number] [place] 11:00:00 11:00:00 t; KELLI, Trauma Jose CASTILLO PBenedictABenedict [facility] 2019-01-23 2019-01-23 CRISTIANA Quinn UTP [id number] [place] 11:00:00 11:00:00 t; Jose PEREIRA P.A. ans CHRISTINA, Mary Beth 2018-08-28 2018-08-28 [facility] [id number] [place] 12:45:00 12:45:00 t; LINDSEY ARREOLA Physi Janie Silverio M.Berta 2018-08-14 2018-08-14 [facility] [id number] [place] 09:00:00 09:00:00 t; LINDSEY ARREOLA, Physi ci Janie PORTILLO M.Berta 2018-08-07 2018-08-07 [facility] [id number] [place] 11:00:00 11:00:00 t; LINDSEY ARREOLA, Orthopedics Janie Andino MTravis 2018-07-31 2018-07-31 [facility] [id number] [place] 09:15:00 09:15:00 t; LOLLY LANDEROS P hysici DANIELLE, M.D. ans MTravis 2018-05-31 2018-05-31 Appointmen [facility] [id number] [place] 11:00:00 11:00:00 t; JANA ANAYA at [facility] Janie IVEY M.D. [facility] 2018-05-29 2018-05-29 Appoint[facility] [id number] [place] 11:00:00 11:00:00 t; LOLLY LANDEROS P hysici DANIELLE, M.D. ans M.D. 2018-05-14 2018-05-14 Appoint[facility] [id number] [place] 09:30:00 09:30:00 t; Jose PEREIRA P.A. ans CHRISTINA, Delfino.Lg 2018-05-03 2018-05-03 [facility] [id number] [place] 11:30:00 11:30:00 t; Jose PEREIRA P.ABenedict PEREIRA, P.Lg 2018-04-17 2018-04-17 Appointmen LANDEROS, UTP UTP [id number] [place] 08:30:00 08:30:00 t; LOLLY LANDEROS P hysici DANIELLE, M.D. ans M.Berta 2018-04-15 2018-04-15 Appointmen HÉCTOR, UTP [facility] [id number] [place] 14:45:00 14:45:00 t; JANA ANAYA Ortho and Delfino IVEY M.D. Spine [facility] gomez [facility] 2018-03-04 2018-03-04 Appointmen MARCO, UTP UTP [id number] [place] 11:00:00 11:00:00 t; MIGUELINA LARA, ANALOG IC DESIGN ENGINEER Phy duane MCINTYRE, PALMA ans 2018-02-01 2018-02-01 Appointmen GUSTAVO, UTP UTP [id number] [place] 11:15:00 11:15:00 t; CJ CHEN PA Physici DENISE, PA ans 2017-12-14 2017-12-14 Appointmen GUSTAVO, [facility] UTP [id number] 1 [place] 10:30:00 10:30:00 t; CJ CHEN PA Physici DENISE, PA ans 2017-11-28 2017-11-28 Appointmen ELBA, [facility] UTP [id number] 1 [place] 14:00:00 14:00:00 t; LINDSEY ARREOLA Physi ci ANDREW, M.D. ans M.Berta 2017-06-20 2017-06-20 Appointmen TIGRE, [facility] UTP [id number] 5 [place] 09:30:00 09:30:00 t; LOLLY LANDEROS P hysici DANIELLE, M.D. ans M.Berta 2017-05-11 2017-05-11 Appointmen SHREYAS, [facility] UTP [id number] 8 [place] 09:00:00 09:00:00 t; IRENE PRITCHETT M.D. Physici BINH, M.D. ans 2017-04-24 2017-04-24 Appointmen LANDEROS, [facility] UTP [id number] [place] 10:45:00 10:45:00 t; LOLLY LANDEROS P hysici DANIELLE, M.D. ans MTravis 2017-04-04 2017-04-04 Appointmen MARINO, [facility] UTP [id number] [place] 11:00:00 11:00:00 t; Carey RICHMOND M.D. ans GABRIELA, M.D. 2017-02-27 2017-02-27 Appointmen TIGRE, [facility] UTP [id number] 5 [place] 08:45:00 08:45:00 t; LOLLY LANDEROS P hysici DANIELLE, M.D. ans M.Berta 2017-02-20 2017-02-20 [facility] TIGRE, [facility] UTP [id number] [place] 09:00:00 09:00:00 t; LOLLY LANDEROS P hysici DANIELLE, M.D. ans MTravis 2017-02-13 2017-02-13 [facility] TIGRE, [facility] UTP [id number] 2 [place] 08:45:00 08:45:00 t; LOLLY LANDEROS P hysici DANIELLE, M.D. ans MTravis 2016-12-27 2016-12-27 [facility] ELBA, [facility] UTP [id number] [place] 12:45:00 12:45:00 t; LINDSEY ARREOLA, Physi Janie Silverio M.DBenedict 2016-12-20 2016-12-20 [facility] ELBA, [facility] UTP [id number] 0 [place] 10:45:00 10:45:00 t; LINDSEY ARREOLA, Physi Janie Silverio M.DBenedict 2016-12-13 2016-12-13 [facility] ELBA, [facility] UTP [id number] 1 [place] 12:30:00 12:30:00 t; LINDSEY ARREOLA, Physi Janie Silverio M.DBenedict 2016-12-13 2016-12-13 [facility] KATIE, [facility] UTP [id number] 2 [place] 09:30:00 09:30:00 t; EMIR WILSON, Shanna FIELD M.D. ans M.DBenedict 2016-11-29 2016-11-29 [facility] MARCO, [facility] UTP [id number] 1 [place] 11:30:00 11:30:00 t; MIGUELINA LARA, PALMA MCINTYRE NP ans 2016-11-28 2016-11-28 [facility] SANJUANA, [facility] UTP [id number] 7 [place] 15:00:00 15:00:00 t; TAMMI WEI M.D. Physici GRANT, ans M.D. 2012-12-05 2012-12-05 Outpatient [facility] [id number] Univers 00:00:00 10:18:00 7 ity of [facility] 2012-11-28 2012-11-28 Outpatient [facility] [id number] Univers 00:00:00 00:00:00 [id number] ity of [facility] 2012-08-01 2012-08-01 [facility]patient [facility] [id number] Univers 00:00:00 11:48:00 7 ity of [facility] 2012-07-26 2012-07-26 Outpatient [facility] [id number] Univers 00:00:00 00:00:00 [id number] [facility] 2012-05-07 2012-05-07 Outpatient [facility] [id number] -[id number] Univers 00:00:00 00:00:00 [id number] [facility] 2012-05-02 2012-05-02 Outpatient [facility] [id number] -[id number] Univers 00:00:00 00:00:00 [id number] [facility] 2012-04-26 2012-04-26 [facility] [id number] Univers 00:00:00 11:47:00 3 ity of [facility] 2012-04-25 2012-04-25 Outpatient [facility] [id number] -[id number] Univers 00:00:00 00:00:00 [id number] [facility] 2012-04-22 2012-04-22 Outpatient [facility] [id number] -[id number] Univers 00:00:00 00:00:00 [id number] [facility] 2012-03-26 2012-03-26 [facility] [id number] Univers 00:00:00 00:00:00 [id number] [facility] 2012-02-19 2012-02-19 Outpatient [facility] [id number] -[id number] Univers 00:00:00 00:00:00 [id number] [facility] 2011-11-23 2011-11-23 [facility] [place] [id number] Univers 00:00:00 00:00:00 [id number] [facility] 2011-11-21 2011-11-21 Outpatient [facility] [id number] Univers 00:00:00 14:02:00 6 ity of [facility] 2011-10-06 2011-10-06 Outpatient [facility] [id number] Univers 00:00:00 00:00:00 [id number] ity of [facility] 2011-08-24 2011-08-24 Outpatient [facility] [id number] Univers 00:00:00 00:00:00 [id number] ity of [facility] 2011-08-08 2011-08-08 Outpatient [facility] [id number] Univers 00:00:00 14:46:00 6 ity of [facility] 2011-08-07 2011-08-07 Outpatient [facility] [id number] Univers 00:00:00 00:00:00 [id number] ity of [facility] 2011-07-17 2011-07-17 [facility] [place] [id number] [facility] 00:00:00 00:00:00 [id number] [facility] 2011-06-08 2011-06-08 Outpatient [facility] [id number] [facility] 00:00:00 16:31:00 2 [facility] 2011-04-19 2011-04-19 [facility] [id number] [facility] 00:00:00 14:59:00 6 [facility] 2011-03-27 2011-03-27 Outpatient [facility] [id number] [facility] 00:00:00 00:00:00 [id number] [facility] 2011-01-25 2011-01-25 Outpatient [facility] [id number] [facility] 00:00:00 13:47:00 1 [facility] 2011-01-25 2011-01-25 [facility] [id number] [facility] 00:00:00 00:00:00 [id number] [facility] 2011-01-18 2011-01-18 Out[facility] [place] [id number] [facility] 00:00:00 00:00:00 [id number] [facility] 2010-07-29 2010-07-29 Outpatient [facility] [id number] [facility] 00:00:00 00:00:00 [id number] [facility] 2010-05-31 2010-05-31 [facility] [id number] [facility] 00:00:00 10:37:00 0 [facility] 2010-05-24 2010-05-24 [facility] [id number] [facility] 00:00:00 00:00:00 [id number] [facility] 2010-05-13 2010-05-13 [facility] [id number] [facility] 00:00:00 00:00:00 [id number] [facility] 2010-05-12 2010-05-12 [facility] [id number] [facility] 00:00:00 00:00:00 [id number] [facility] 2010-04-12 2010-04-12 [facility] [id number] [facility] 00:00:00 16:35:00 6 [facility] 2010-04-07 2010-04-07 Outpatient [facility] [id number] [facility] 00:00:00 00:00:00 [id number] [facility] 2010-04-06 2010-04-06 [facility] [id number] [facility] 00:00:00 00:00:00 [id number] [facility] 2010-03-31 2010-03-31 [facility] [id number] [facility] 00:00:00 12:04:00 6 [facility] 2010-03-24 2010-03-24 [facility] [id number] [facility] 00:00:00 00:00:00 [id number] [facility] 2010-03-03 2010-03-03 [facility] [id number] [facility] 00:00:00 09:58:00 3 [facility] 2010-01-24 2010-01-24 [facility] [id number] [facility] 00:00:00 11:41:00 8 [facility] 2009-11-25 2009-11-25 [facility] [id number] [facility] 00:00:00 11:16:00 0 [facility] 2009-10-26 2009-10-26 [facility] [id number] [facility] 00:00:00 11:07:00 3 [facility] 2009-10-12 2009-10-12 [facility] [id number] 00:00:00 00:00:00 [id number] [facility] 2009-10-05 2009-10-05 Outpatient [facility] [id number] -20 [facility] 00:00:00 00:00:00 [id number] [facility] 2009-09-20 2009-09-20 Outpatient [facility] [id number] -20 Univers 00:00:00 00:00:00 [id number] [facility] 2009-07-26 2009-07-26 [facility] [id number] -[id number] 00:00:00 00:00:00 [id number] [facility] 2009-05-05 2009-05-05 [facility] [id number] -[id number] 00:00:00 00:00:00 [id number] [facility] 2009-04-28 2009-04-28 [facility] [id number] -20 [facility] 00:00:00 00:00:00 [id number] [facility] 2009-04-22 2009-04-22 [facility] [id number] -[id number] [facility] 00:00:00 00:00:00 [id number] [facility] 2009-04-19 2009-04-19 [facility] [id number] -20 [facility] 00:00:00 00:00:00 [id number] [facility] 2009-01-25 2009-01-25 Outpatient [facility] [id number] Univers 00:00:00 13:04:00 6 [facility] 2009-01-20 2009-01-20 [facility] [id number] [facility] 00:00:00 14:25:00 4 [facility] 2008-09-15 2008-09-15 Outpatient [facility] [id number] -[id number] [facility] 00:00:00 00:00:00 [id number] [facility] 2008-06-02 2008-06-02 [facility] [id number] [facility] 00:00:00 16:42:00 0 [facility] 2008-04-17 2008-04-17 Outpatient [facility] [id number] -20 Univers 00:00:00 00:00:00 [id number] [facility] 2008-04-01 2008-04-01 Outpatient [facility] [id number] -[id number] Univers 00:00:00 00:00:00 [id number] [facility] 2008-03-31 2008-03-31 Outpatient [facility] [id number] -20 [facility] 00:00:00 00:00:00 [id number] [facility] 2007-08-09 2007-08-09 Outpatient [facility] [id number] -20 [facility] 00:00:00 00:00:00 [id number] [facility] 2007-07-22 2007-07-22 Outpatient [facility] [id number] Univers 00:00:00 14:29:00 0 [facility] 2007-07-05 2007-07-05 Outpatient [facility] [id number] -20 Univers 00:00:00 00:00:00 [id number] [facility] 2007-06-11 2007-06-11 Outpatient [facility] [id number] -[id number] [facility] 00:00:00 00:00:00 [id number] [facility] 2007-05-31 2007-05-31 Outpatient [facility] [id number] -20 [facility] 00:00:00 00:00:00 [id number] [facility] 2007-05-07 2007-05-07 Outpatient [facility] [id number] Univers 00:00:00 15:39:00 2 [facility] Results Test Description Test Time Test Comments Results Result Comments Source SARS-CoV-2 (COVID-19), RT-PCR/TMA 2021-11-27 15:43:57 Test Item Value Reference Range Interpretation Comme nts SARS-CoV-2 INTERPRETATION POSITIVE SEE NOTE A S ARS-CoV-2 RNA DETECTEDPositive (test code = 34567) results are indicative of the presence of CHELLE S-CoV-2 RNA;clinical co rrelation with patient history and other diagnosticinfor mation is necessary to de termine patient infection statu s.Positive results do not rule out bacterial infection or co -infectionwith other viruses. Positive and negative predic tive values oftesting are h ighly dependent on prevalence. SOURCE (test code = 30111) NASOPHARYNGEAL Note: Methodology is Soham Tyrone Real-Time RT-PC R. The expected result or ref erence range is NEGATIVE (Not D etected). For more information reg arding COVID-19 testing to incl ude clinicalinforma tion, methodology detail, intende d use, FDA authorization a ndrecommended fact sheets for serene ents or healthcare providers, see NewTest Announcement: S ARS-CoV-2 (COVID-19) by N AAT at URL below (note,fact shee ts are provided by method given in report:https:// [email or web address]/cl [email or web address]/client -communications/ Alternatively, see downloadable PDF fact sheet at:[email or web address]. [email or web address]/[email or web address]- 19-RT-PCR UNLESS OTHERWISE INDICATED, ALL TESTING PERFORMED ATCLINICAL PATH [place] [address] LABORATORY DIRE CTOR: DENICE BENTON M.D. CLIA NUMBER [id number] [facility] [place]. [id number] 10:33:00 Test Item Value Reference Range Interpretation Comments GLUBED (test code = GLUBED) 91 MG/DL 70-105 N Novel Coronavirus 2019 [id number] 20:31:00 Test Item Value Reference Range Interpretation Comments Novel Coronavirus 2019 Inhouse (test Negative Negative code = COVNONPUI) Testing Criteria: Preprocedure ScreeningNovel Coronavirus 2019 Inhouse 2020-04-14 20:31:00 Test Item Value Reference Range Interpretation Comments Novel Coronavirus 2019 Inhouse (test Negative Negative code = COVNONPUI) Testing Criteria: Preprocedure [id number] 11:15:00 Test Item Value Reference Range Interpretation Comments HEMOGLOBIN (test code = HGB) 16.8 g/dL 14.5-20 N [id number] 11:15:00 Test Item Value Reference Range Interpretation Comments HEMATOCRIT (test code = HCT) 52.1 % 42.0-52.0 H BLOOD [id number] 08:01:00 Test Item Value Reference Range Interpretation Comments CULTURE (BEAKER) (test No growth in 5 days code = 1095) BLOOD [id number] 08:01:00 Test Item Value Reference Range Interpretation Comments CULTURE (BEAKER) (test No growth in 5 days code = 1095) BASIC METABOLIC [id number] 06:08:00 Test Item Value Reference Range Interpretation [...] PATIEN TS. CBC W/PLT COUNT & AUTO [id number] 07:49:00 Test Item Value Reference Range Interpretation [...] Received comment: User comments: Slide comments:BASIC METABOLIC [id number] 05:04:00 Test Item Value Reference Range Interpretation [...] PATIEN TS. CBC W/PLT COUNT & AUTO [id number] 09:25:00 Test Item Value Reference Range Interpretation [...] Slide comments: WBC: SEGMENTED WITH TOXIC GRANULATIONS PRESENTBASI METABOLIC [id number] 04:47:00 Test Item Value Reference Range Interpretation [...] DIALYSIS PATIEN TS. URINALYSIS W/ REFLEX URINE [id number] 12:15:00 Test Item Value Reference Range Interpretation [...] = 2795) CBC W/PLT COUNT & AUTO [id number] 08:39:00 Test Item Value Reference Range Interpretation [...] Received comment: User comments: Slide comments:BASIC METABOLIC [id number] 05:58:00 Test Item Value Reference Range Interpretation [...] (test code = 697) EGFR (BEAKER) (test 147 mL/min/1.73 ESTIM ATED GFR IS code = 1092) sq m NOT ACCURATE CREATININE CLEARANCE IN PREDICTING GLOMERULAR FILTRATION RATE . ESTIMATED GFR I S NOT APPLICABLE FOR DIALYSIS PATIEN TS. RAD, HIP, 2 VIEWS, [id number] 01:46:00Reason for exam:->total hip arthoplasty with persistent [...] scan or MRI is recommended. Signed: Sabra Snyder MDReport Verified Date/Time: 07/13/2019 01:46:35 Reading Location: [address] Reading Room RAD, KNEE, 3 VIEWS, [id number] 01:45:00Reason for exam:->hardware with leukocytosis FINAL REPORT [...] scan or MRI is recommended. Signed: Sabra Snyder MDReport Verified Date/Time: 07/13/2019 01:45:04 Reading Location: [address] Reading Room RAD, KNEE, 3 VIEWS, [id number] 01:43:00 Reason for exam:->leukocytosisFINAL REPORT CLINICAL HISTORY: [...] scan or MRI is recommended. Signed: Sabra Snyder Verified Date/Time: 07/13/2019 01:43:49 Reading Location: [address] Reading Room RAD, CHEST, 1 VIEW, NON [id number] 01:42:00Reason for exam:->leukocytosisShould this be performed at [...] overlie the right upper quadrant. Signed: Sabra Snyder Verified Date/Time: 07/13/2019 01:42:05 Reading Location: [address] Reading Room RAD, HIP, 2 VIEWS, [id number] 01:40:00Reason for exam:->total hip arthoplasty with persistent [...] the pelvis and left leg. Signed: Sabra Snyder Verified Date/Time: 07/13/2019 01:40:58 Reading Location: [address] Reading Room CBC W/PLT COUNT & AUTO [id number] 10:58:00 Test Item Value Reference Range Interpretation [...] 3438) Received comment: User comments: Slide comments:BLOOD [id number] 08:01:00 Test Item Value Reference Range Interpretation Comments CULTURE (BEAKER) (test No growth in 5 days code = 1095) BLOOD [id number] 08:01:00 Test Item Value Reference Range Interpretation Comments CULTURE (BEAKER) (test No growth in 5 days code = 1095) BASIC METABOLIC [id number] 05:59:00 Test Item Value Reference Range Interpretation [...] PATIEN TS. CBC W/PLT COUNT & AUTO [id number] 11:34:00 Test Item Value Reference Range Interpretation [...] = 3438) Received comment: User comments: Slide comments:[id number] 06:55:00 Test Item Value Reference Range Interpretation Comments PROCALCITONIN (BEAKER) (test code 0.61 ng/mL <0.05 H = 3036) SEPSIS RISK (ng/mL)Low: 0.05-0.50Intermediate: 0.51-2.00High: >=2.01BASIC METABOLIC [id number] 06:43:00 Test Item Value Reference Range Interpretation [...] S NOT APPLICABLE FOR DIALYSIS PATIEN TS. [id number] 06:36:00 Test Item Value Reference Range Interpretation Comments MAGNESIUM (BEAKER) (test code = 2.0 mg/dL 1.6-2.6 627) [id number] 06:36:00 Test Item Value Reference Range Interpretation Comments ALBUMIN (BEAKER) (test code = 1145) 2.3 g/dL 3.5-5.0 L CALCIUM, [id number] 05:32:00 Test Item Value Reference Range Interpretation Comments CALCIUM IONIZED (BEAKER) (test 1.09 mmol/L 1.12-1.27 L code = 698) PH, BLOOD (BEAKER) (test code = 7.42 1810) [id number] 13:34:00 Test Item Value Reference Range Interpretation Comments POTASSIUM (BEAKER) (test code = 3.6 meq/L 3.5-5.1 379) HEMOGLOBIN AND [id number] 12:50:00 Test Item Value Reference Range Interpretation Comments HEMOGLOBIN (BEAKER) (test code = 9.1 GM/DL 13.7-17.5 L 410) HEMATOCRIT (BEAKER) (test code = 29.0 % 40.1-51.0 L 411) MRSA [id number] 11:38:00 Test Item Value Reference Range Interpretation Comments CULTURE (BEAKER) (test code No MRSA isolated = 1095) POCT-GLUCOSE [id number] 06:38:00 Test Item Value Reference Range Interpretation Comments POC-GLUCOSE METER 134 mg/dL 70-[address] [facility] 6720 (BEAKER) (test code = [place]) [address] BASIC METABOLIC [id number] 05:06:00 Test Item Value Reference Range Interpretation [...] S NOT APPLICABLE FOR DIALYSIS PATIEN TS. [id number] 05:02:00 Test Item Value Reference Range Interpretation Comments MAGNESIUM (BEAKER) (test code = 2.0 mg/dL 1.6-2.6 627) CBC W/PLT COUNT & AUTO [id number] 04:53:00 Test Item Value Reference Range Interpretation [...] PERCENT (BEAKER) (test code = 2801) POCT-GLUCOSE [id number] 00:09:00 Test Item Value Reference Range Interpretation Comments POC-GLUCOSE METER 181 mg/dL 70-[address] [facility] 67 ([facility]) (test code = [place] 1538) [address] POCT-GLUCOSE [id number] 19:24:00 Test Item Value Reference Range Interpretation Comments POC-GLUCOSE METER 121 mg/dL 70-110 H TESTED AT [place] [address] ([facility]) (test code = [facility] [place] 1538) [address] LACTIC ACID, [id number] 16:46:00 Test Item Value Reference Range Interpretation Comments LACTATE BLOOD VENOUS (2) (BEAKER) 1.9 mmol/L 0.5-2.2 (test code = 2872) HEMOGLOBIN AND [id number] 16:36:00 Test Item Value Reference Range Interpretation Comments HEMOGLOBIN (BEAKER) (test code = 8.0 GM/DL 13.7-17.5 L 410) HEMATOCRIT (BEAKER) (test code = 24.5 % 40.1-51.0 L 411) CBC W/PLT COUNT & AUTO [id number] 16:02:00 Test Item Value Reference Range Interpretation [...] H PERCENT (BEAKER) (test code = 2801) BASIC METABOLIC [id number] 12:32:00 Test Item Value Reference Range Interpretation [...] NOT APPLICABLE FOR DIALYSIS PATIEN TS. POCT-GLUCOSE [id number] 12:08:00 Test Item Value Reference Range Interpretation Comments POC-GLUCOSE METER 175 mg/dL 70-[address] [facility] 6720 (BEAKER) (test code = [place]) [address] HEMOGLOBIN AND [id number] 12:07:00 Test Item Value Reference Range Interpretation Comments HEMOGLOBIN (BEAKER) (test code = 8.5 GM/DL 13.7-17.5 L 410) HEMATOCRIT (BEAKER) (test code = 26.4 % 40.1-51.0 L 411) [id number] 11:16:00 Test Item Value Reference Range Interpretation Comments MAGNESIUM (BEAKER) (test code = 2.3 mg/dL 1.6-2.6 627) BASIC METABOLIC [id number] 10:18:00 Test Item Value Reference Range Interpretation [...] APPLICABLE FOR DIALYSIS PATIEN TS. VANCOMYCIN LEVEL, [id number] 10:14:00 Test Item Value Reference Range Interpretation [...] (BEAKER) (test code = 413) HEMOGLOBIN AND [id number] 08:10:00 Test Item Value Reference Range Interpretation Comments HEMOGLOBIN (BEAKER) (test code = 7.9 GM/DL 13.7-17.5 L 410) HEMATOCRIT (BEAKER) (test code = 24.3 % 40.1-51.0 L 411) POCT-GLUCOSE [id number] 05:56:00 Test Item Value Reference Range Interpretation Comments POC-GLUCOSE METER 113 mg/dL 70-110 H TESTED AT [place] [address] (BEAKER) (test code = [place] 1538) [address] BASIC METABOLIC [id number] 04:31:00 Test Item Value Reference Range Interpretation [...] S NOT APPLICABLE FOR DIALYSIS PATIEN TS. [id number] 04:21:00 Test Item Value Reference Range Interpretation Comments MAGNESIUM (BEAKER) (test code = 2.2 mg/dL 1.6-2.6 627) CBC W/PLT COUNT & AUTO [id number] 04:07:00 Test Item Value Reference Range Interpretation [...] PERCENT (BEAKER) (test code = 2801) CALCIUM, [id number] 04:00:00 Test Item Value Reference Range Interpretation Comments CALCIUM IONIZED (BEAKER) (test 1.04 mmol/L 1.12-1.27 L code = 698) PH, BLOOD (BEAKER) (test code = 7.40 1810) HEMOGLOBIN AND [id number] 00:26:00 Test Item Value Reference Range Interpretation Comments HEMOGLOBIN (BEAKER) (test code = 7.6 GM/DL 13.7-17.5 L 410) HEMATOCRIT (BEAKER) (test code = 23.0 % 40.1-51.0 L 411) POCT-GLUCOSE [id number] 00:20:00 Test Item Value Reference Range Interpretation Comments POC-GLUCOSE METER 117 mg/dL 70-[address] [facility] 6720 (SIOBHAN) (test code = [place] [address]) [address] CT, [id number] 19:35:00FINAL REPORT TECHNIQUE: CT of the abdomen [...] Faye on 07/08/2019 at 7:21 PM. Signed: Gustabo Whyte MDReport Verified Date/Time: 07/08/2019 19:35:04 Reading Location: [facility] C013Y CT Body Reading Room POCT-GLUCOSE [id number] 17:58:00 Test Item Value Reference Range Interpretation Comments POC-GLUCOSE METER 121 mg/dL 70-[address] [facility] 6720 (BEAKER) (test code = [facility] 1538) [address] HEMOGLOBIN AND [id number] 16:32:00 Test Item Value Reference Range Interpretation Comments HEMOGLOBIN (BEAKER) (test code = 7.5 GM/DL 13.7-17.5 L 410) HEMATOCRIT (BEAKER) (test code = 22.9 % 40.1-51.0 L 411) POCT-GLUCOSE [id number] 12:03:00 Test Item Value Reference Range Interpretation Comments POC-GLUCOSE METER 93 mg/dL 70-[address] [facility] 6720 (BEAKER) (test code = [facility] [address]) BASIC METABOLIC [id number] 10:27:00 Test Item Value Reference Range Interpretation [...] S NOT APPLICABLE FOR DIALYSIS PATIEN TS. [id number] 10:16:00 Test Item Value Reference Range Interpretation Comments MAGNESIUM (BEAKER) (test code = 1.4 mg/dL 1.6-2.6 L 627) CALCIUM, [id number] 09:50:00 Test Item Value Reference Range Interpretation Comments CALCIUM IONIZED (BEAKER) (test 1.06 mmol/L 1.12-1.27 L code = 698) PH, BLOOD (BEAKER) (test code = 7.47 1810) CBC W/PLT COUNT & AUTO [id number] 09:11:00 Test Item Value Reference Range Interpretation [...] 3438) Received comment: User comments: Slide comments:POCT-GLUCOSE [id number] 06:28:00 Test Item Value Reference Range Interpretation Comments POC-GLUCOSE METER 108 mg/dL 70-[address] [facility] 6720 (BEAKER) (test code = [place] 1538) [address] POCT-GLUCOSE [id number] 05:09:00 Test Item Value Reference Range Interpretation Comments POC-GLUCOSE METER 82 mg/dL 70-[address] [facility] 6720 (BEAKER) (test code = [place] [address]) [id number] 04:07:00 Test Item Value Reference Range Interpretation Comments FERRITIN (BEAKER) (test code = 361) 154 ng/mL 5-275 BASIC METABOLIC [id number] 03:53:00 Test Item Value Reference Range Interpretation [...] APPLICABLE FOR DIALYSIS PATIEN TS. HEPATIC FUNCTION [id number] 03:51:00 Test Item Value Reference Range Interpretation [...] = 9 U/L 6-55 347) LACTIC ACID, [id number] 03:48:00 Test Item Value Reference Range Interpretation Comments LACTATE BLOOD ARTERIAL (2) 0.8 mmol/L 0.5-2.2 (BEAKER) (test code = 2874) PROTHROMBIN [id number] 03:43:00 Test Item Value Reference Range Interpretation [...] for patients wiht mechanical heart valves.HEMOGLOBIN AND [id number] 03:32:00 Test Item Value Reference Range Interpretation Comments HEMOGLOBIN (BEAKER) (test code = 8.1 GM/DL 13.7-17.5 L 410) HEMATOCRIT (BEAKER) (test code = 24.3 % 40.1-51.0 L 411) HEMOGLOBIN AND [id number] 22:53:00 Test Item Value Reference Range Interpretation Comments HEMOGLOBIN (BEAKER) (test code = 7.9 GM/DL 13.7-17.5 L 410) HEMATOCRIT (BEAKER) (test code = 23.8 % 40.1-51.0 L 411) [id number] 19:45:00 Test Item Value Reference Range Interpretation [...] is2.5-3.5 for patients wiht mechanical heart valves.POCT-GLUCOSE [id number] 19:33:00 Test Item Value Reference Range Interpretation Comments POC-GLUCOSE METER 101 mg/dL 70-[address] [facility] 6720 (BEAKER) (test code = [place] 15[address]) [address] CALCIUM, [id number] 18:17:00 Test Item Value Reference Range Interpretation Comments CALCIUM IONIZED (BEAKER) (test 1.08 mmol/L 1.12-1.27 L code = 698) PH, BLOOD (BEAKER) (test code = 7.37 1810) BLOOD GAS, [id number] 18:15:00 Test Item Value Reference Range Interpretation [...] (test code = 1819) 100.0 % POTASSIUM-STAT [id number] 18:15:00 Test Item Value Reference Range Interpretation Comments POTASSIUM (BEAKER) (test code = 3.3 meq/L 3.6-5.5 L 379) GLUCOSE-STAT [id number] 18:15:00 Test Item Value Reference Range Interpretation Comments GLUCOSE RANDOM (BEAKER) (test code 138 mg/dL 70-110 H = 652) HGB/HCT (H&H) - STAT [id number] 18:15:00 Test Item Value Reference Range Interpretation Comments HEMOGLOBIN (BEAKER) (test code = 8.7 g/dL 13.0-16.8 L 410) HEMATOCRIT (BEAKER) (test code = 26.0 % 40.0-50.0 L 411) SODIUM NA-STAT [id number] 18:13:00 Test Item Value Reference Range Interpretation Comments SODIUM (BEAKER) (test code = 381) 137 meq/L 135-148 LACTIC ACID, [id number] 16:40:00 Test Item Value Reference Range Interpretation Comments LACTATE BLOOD ARTERIAL (2) 1.4 mmol/L 0.5-2.2 (BEAKER) (test code = 2874) HEMOGLOBIN AND [id number] 16:24:00 Test Item Value Reference Range Interpretation Comments HEMOGLOBIN (BEAKER) (test code = 7.5 GM/DL 13.7-17.5 L 410) HEMATOCRIT (BEAKER) (test code = 22.6 % 40.1-51.0 L 411) HGB/HCT (H&H) - STAT [id number] 15:47:00 Test Item Value Reference Range Interpretation Comments HEMOGLOBIN (BEAKER) (test code = 9.1 g/dL 13.0-16.8 L 410) HEMATOCRIT (BEAKER) (test code = 27.0 % 40.0-50.0 L 411) BLOOD GAS, [id number] 12:36:00 Test Item Value Reference Range Interpretation [...] (BEAKER) (test code = 1819) 21.0 % [id number] 12:32:00 Test Item Value Reference Range Interpretation Comments MAGNESIUM (BEAKER) 1.7 mg/dL 1.6-2.6 Specimen slightly (test code = 627) hemolyzed POTASSIUM-STAT [id number] 12:31:00 Test Item Value Reference Range Interpretation Comments POTASSIUM (BEAKER) (test code = 3.2 meq/L 3.6-5.5 L 379) HGB/HCT (H&H) - STAT [id number] 12:31:00 Test Item Value Reference Range Interpretation Comments HEMOGLOBIN (BEAKER) (test code = 9.7 g/dL 13.0-16.8 L 410) HEMATOCRIT (BEAKER) (test code = 29.0 % 40.0-50.0 L 411) GLUCOSE-STAT [id number] 12:29:00 Test Item Value Reference Range Interpretation Comments GLUCOSE RANDOM (BEAKER) (test code 100 mg/dL 70-110 = 652) SODIUM NA-STAT [id number] 12:29:00 Test Item Value Reference Range Interpretation Comments SODIUM (BEAKER) (test code = 381) 136 meq/L 135-148 POCT-GLUCOSE [id number] 11:50:00 Test Item Value Reference Range Interpretation Comments POC-GLUCOSE METER 88 mg/dL 70-[address] [facility] 6720 (BEAKER) (test code = [place] [facility] [address]) BASIC METABOLIC [id number] 09:48:00 Test Item Value Reference Range Interpretation [...] PATIEN TS. CBC W/PLT COUNT & AUTO [id number] 09:44:00 Test Item Value Reference Range Interpretation [...] after transfusion completedUser comments: Slide comments:HEPATIC FUNCTION [id number] 07:43:00 Test Item Value Reference Range Interpretation [...] code = 11 U/L 6-55 347) PROTHROMBIN [id number] 07:33:00 Test Item Value Reference Range Interpretation Comments PROTIME (BEAKER) (test code = 14.3 seconds 11.9-14.2 H 759) INR (BEAKER) (test code = 370) 1.2 <=5.9 Effective 04/02/2019: PT Reference Range ChangeNew: 11.9-14.2 Previous: 11.7- 14.7RECOMMENDED COUMADIN/WARFARIN INR THERAPY RANGESSTANDARD DOSE: 2.0-3.0 Includes: PROPHYLAXIS for venous thrombosis, systemic embolization; TREATMENT for venous thrombosis and/or pulmonary embolus.HIGH RISK: Target INR is2.5-3.5 for patients wiht mechanical heart valves.VITAMIN B12 AND [id number] 07:27:00 Test Item Value Reference Range Interpretation Comments VITAMIN B12 (BEAKER) (test code = 290 pg/mL 213-816 774) FOLATE (BEAKER) (test code = 362) 11.1 ng/mL >=7.0 POCT-GLUCOSE [id number] 06:09:00 Test Item Value Reference Range Interpretation Comments POC-GLUCOSE METER 89 mg/dL 70-[address] [facility] 6720 (BEAKER) (test code = [place] [address]) RAD, CHEST, 1 VIEW, NON [id number] 04:21:00Reason for exam:- >leucocytosisShould this be performed [...] code = 2590) URINALYSIS WITH MICROSCOPIC IF [id number] 01:48:00 Test Item Value Reference Range Interpretation [...] = 463) SOURCE(BEAKER) (test code = 2795) [id number] 01:24:00 Test Item Value Reference Range Interpretation Comments POC-HEMOGLOBIN 5.4 g/dL 13.0-16.[address] [facility] 6720 (BEAKER) (test code = [place] [address]) [address]Q[address]LF AT [facility] 67 [facility] [place] [address] POCT-BLOOD GASES, [id number] 01:23:00 Test Item Value Reference Range Interpretation Comments TEMP, CELSIUS-POC 36.1 (BEAKER) (test code = 1834) FIO2-POC (BEAKER) [address] [facility] 6720 (test code = 1835) [place] [address] PH, VENOUS-POC 7.392 7.320-7.420 (BEAKER) (test code = 1842) PCO2, VENOUS-POC 42.4 mm Hg 41.0-51.0 (BEAKER) (test code = 1843) PO2, VENOUS-POC 54.0 mm Hg 25.0-40.0 H (BEAKER) (test code = 1844) SO2, VENOUS-POC 89.0 % 40.0-70.0 H (BEAKER) (test code = 1845) HCO3, VENOUS-POC 26.0 meq/L 21.0-29.0 (BEAKER) (test code = 1846) BASE EXCESS, 1.0 meq/L -2.0-3.0 VENOUS-POC ([facility]) (test code = 1847) [id number] 01:23:00 Test Item Value Reference Range Interpretation Comments POC-SODIUM (BEAKER) 141 meq/L 135-148 TESTED [place] [address] (test code = 1542) [facility] [address] [id number] 01:23:00 Test Item Value Reference Range Interpretation Comments POC-POTASSIUM 3.1 meq/L 3.6-5.5 L TESTED AT [place] [address] ([facility]) (test code [facility] [address] = 1540) [id number] 01:23:00 Test Item Value Reference Range Interpretation Comments POC-GLUCOSE ([facility]) 100 mg/dL 70-110 TESTED AT [place] [address] (test code = 1855) [facility] [address] POCT-CALCIUM [id number] 01:23:00 Test Item Value Reference Range Interpretation Comments POC-CALCIUM IONIZED 1.13 mmol/L 1.12-1.27 TESTED A [place] [place] [address] ([facility]) (test code = [facility] 1536) [address] [id number] 01:23:00 Test Item Value Reference Range Interpretation Comments POC-HEMATOCRIT 16 % 40-50 L TESTED AT [place] [address] ([facility]) (test code = [facility] [address] 1857) C-REACTIVE [id number] 01:07:00 Test Item Value Reference Range Interpretation Comments C-REACTIVE PROTEIN (AKER) (test 7.02 mg/dL 0.00-0.50 H code = 676) LACTIC ACID, [id number] 01:05:00 Test Item Value Reference Range Interpretation Comments LACTATE BLOOD VENOUS (2) ([facility]) 1.4 mmol/L 0.5-2.2 (test code = 2872) POCT-GLUCOSE [id number] 01:02:00 Test Item Value Reference Range Interpretation Comments POC-GLUCOSE METER 125 mg/dL 70-110 H TESTED AT [place] [address] ([facility]) (test code = [facility] 1538) [address] POCT-GLUCOSE [id number] 23:36:00 Test Item Value Reference Range Interpretation Comments POC-GLUCOSE METER 189 mg/dL 70-[address] [facility] 6720 (BEAKER) (test code = [place] 1538) [address] (CELLAVISION MANUAL DIFF)2019-07-06 21:36:00 Test Item Value [...] Received comment: User comments: Slide comments:BASIC METABOLIC [id number] 21:31:00 Test Item Value Reference Range Interpretation [...] PATIEN TS. CBC W/PLT COUNT & AUTO [id number] 21:27:00 Test Item Value Reference Range Interpretation [...] (BEAKER) (test code = 413) HEPATIC FUNCTION [id number] 21:26:00 Test Item Value Reference Range Interpretation [...] code = 11 U/L 6-55 347) PROTHROMBIN TIME/[id number] 21:18:00 Test Item Value Reference Range Interpretation [...] INR is2.5-3.5 for patients wiht mechanical heart valves.[[facility]] CMP [id number] 13:50:01 Test Item Value Reference Range Interpretation Comments Sodium Level 138 {mEq/l} 135-145 (test code = 2951-2) Potassium Level 3.7 {mEq/l} 3.5-5.1 (test code = 2823-3) Chloride Level 103 {mEq/l} 95-109 (test code = 5-0) Carbon Dioxide 27 {mEq/l} 24-32 (test code = 8-9) AGAP (test code = 11.7 {mEq/l} 10.0-20.0 13029-5) Glucose Lvl; 53 mg/dl 70-99 Adult reference range Below Low values reflect the Threshold (test clinical nate delinesof the code = 2345-7) [place] [employer]. Creatinine Lvl 0.70 mg/dl [...] g/dl 2.7-4.2 High Threshold (test code = 88558-2) A/G Ratio; Below 0.6 0.7-1.6 Low Threshold (test code = 1759-0) Calcium Level 8.7 mg/dl 8.5-10.5 Total (test code = 76171-1) ALT (test code = 35 u/l 0-65 1743-4) AST (test code = 16 u/l 0-37 08432-2) Alk Phos (test 117 u/l 39-136 code = 1783-0) Bili Total (test 0.5 mg/dl 0.2-1.3 code = 1974-) eGFR (test code = 108 The eGFR i s calculated 76520-6) {ML/MIN/1.7} using the CKD-E PI formula. In [...] be multiplied by t he estimated BMI. [facility]] [id number] 13:50:01 Test Item Value Reference Range Interpretation Comments Magnesium Level (test code = 2.2 mg/dl 1.8-2.4 42163-5) [facility]] PHOSPHATE ( PHOSPHORUS)2019-04-17 13:50:01 Test Item Value Reference Range Interpretation Comments Phosphorus Level; Below Low 2.2 mg/dl 2.5-4.5 Threshold (test code = 2777-1) [facility]] TSH, 3RD GENERATION W/REFLEX TO [id number] 13:50:01 Test Item Value Reference Range Interpretation Comments TSH (test code = 05069-7) 0.993 {uIU/ml} 0.360-3.740 [facility]] PTH, INTACT (WITHOUT CALCIUM)2019-04-17 13:50:01 Test Item Value Reference Range Interpretation Comments Parathyroid Hormone Intact; Above 85.6 pg/ml 18.4-80.1 High Threshold (test code = 2731-8) [facility]] VITAMIN D, 25-HYDROXY, LC/[id number] 13:50:01 Test Item Value Reference Range Interpretation Comments Vitamin D, 25-OH, 25.5 ng/ml 30.0-100.0 Reference range is based Total (test code on recommen dations in the = Vitamin D, EndocrineSociet y Clinical 25-OH, Total) Practice Guide line (J Clin Endocrinol Gyxiy4551;96:19 11-1930) [facility][H] Procollagen Type I Intact N Terminal [id number] 13:50:01 Test Item Value Reference Range Interpretation Comments Procollagen Type I 52 {UG/L} 22-87 Performed At: [facility] Intact N Terminal Pro [facility] (test code = Fclxjgtnga3390 Vincent Procollagen Type I [place], [place] Intact N Terminal Pro) [address] 3361Namattie Mejia MD Ph:[phone] [facility]] [id number] 13:35:01 Test Item Value Reference Range Interpretation Comments Calcium Level Total Cancel Reason: System (test code = 29095-7) Cancel [facility][H] Misc [id number] 13:35:01 Test Item Value Reference Range Interpretation Comments Misc [facility] (test COMMENT Test Orde red: 312728 code = Misc [facility]) C-Telop eptide, SerumC-Telopept villa, Serum 491 pg/mL ESRef erence Range:38 - 724P erformed At: [facility] [address] [place], [place] [id number] Jem Appiah MD Ph:[phone] rformed At: [facility] [address] [place], [place] [id number] ashley Hansen MD Ph:[phone] [facility][U] XRAY KNEE 4 OR MORE VWS BILATERAL [id number] 14:38:00 Images acquired, not reported on this accession number.[facility]
--- NOTE | 2022-05-29 15:42 | ER ---
Nurse's Notes [facility] Name: Nabor Barrow Jr Age: 57 yrs Sex: Male : 1965 Arrival Date: 05/29/2022 Time: 14:43 Bed Waiting Private MD: Richard Grimm Diagnosis: Encounter for issue of repeat prescription;Encounter for screening, unspecified Presentation: 05/29 15:29 Chief complaint: Patient states: he is needing a prescription to soften his stool, and ap3 needs a refill on his gabapentin. Coronavirus screen: At this time, the client does not indicate any symptoms associated with coronavirus-19. Ebola Screen: No symptoms or risks identified at this time. Initial Sepsis Screen: Does the patient meet any 2 criteria? No. Patient's initial sepsis screen is negative. Does the patient have a suspected source of infection? No. Patient's initial sepsis screen is negative. Risk Assessment: Do you want to hurt yourself or someone else? Patient reports no desire to harm self or others. Onset of symptoms was May 29, 2022. 15:29 Method Of Arrival: Wheelchair ap3 15:29 Acuity: INNA 4 ap3 Triage Assessment: 15:32 General: Appears in no apparent distress. Behavior is calm, cooperative. Pain: Denies ap3 pain. Neuro: Level of Consciousness is awake, alert, obeys commands, Oriented to person, place, time. Cardiovascular: Patient's skin is warm and dry. Respiratory: Airway is patent Respiratory effort is even, unlabored, Respiratory pattern is regular, symmetrical. GI: Reports need for stool softeners. Historical: - Allergies: 15:32 Aspirin; ap3 15:32 azathioprine sodium; ap3 15:32 Imuran; ap3 15:32 Lyrica; ap3 15:32 NSAIDS (Non-Steroidal Anti-Inflamma; ap3 - PMHx: 15:32 Arthritis; Chronic pain; Hypertension; Kidney stones; psoriatic arthirits; stroke 2009; ap3 - Immunization history:: Client reports receiving the 2nd dose of the Covid vaccine. - Social history:: Smoking status: Patient denies any tobacco usage or history of. Screenin:33 Abuse screen: Denies threats or abuse. Nutritional screening: No deficits noted. ap3 Tuberculosis screening: No symptoms or risk factors identified. 16:00 Fall Risk None identified. ap3 Assessment: 15:34 GI: Bowel sounds present X 4 quads. Abd is soft and non tender X 4 quads. ap3 Vital Signs: 15:29 BP 142 / 96; Pulse 91; Temp 97.9; Pulse Ox 97% ; Weight 75.75 kg; Height 5 ft. 8 in. ap3 (172.72 cm); 15:29 Body Mass Index 25.39 (75.75 kg, 172.72 cm) ap3 ED Course: 14:43 Patient arrived in ED. mr 14:43 Richard Grimm MD is Private Physician. mr 15:10 Eric Tran PA is PHCP. cp 15:10 Eric Barcenas MD is Attending Physician. cp 15:32 Triage completed. ap3 15:33 Arm band placed on right wrist. ap3 15:33 No provider procedures requiring assistance completed. Patient did not have IV access ap3 during this emergency room visit. 15:34 Patient has correct armband on for positive identification. Adult w/ patient. Pulse ox ap3 on. NIBP on. Administered Medications: No medications were administered Medication: 15:34 VIS not applicable for this client. ap3 Outcome: 15:42 Discharge ordered by . cp 15:59 Discharged to home ambulatory. ap3 15:59 Condition: good 15:59 Discharge instructions given to patient, Instructed on discharge instructions, follow up and referral plans. medication usage, Demonstrated understanding of instructions, follow-up care, medications, Prescriptions given X 2. 16:00 Patient left the ED. ap3 Signatures: Tam, Dina mr Eric Tran PA PA Mary Canada RN RN ap3
--- NOTE | 2022-05-29 15:43 | EDPHYS ---
Physician Documentation [facility] Name: Nabor Barrow Jr Age: 57 yrs Sex: Male : 1965 Arrival Date: 05/29/2022 Time: 14:43 Bed Waiting Private MD: Richard Grimm ED Physician Eric Barcenas HPI: 05/29 15:30 This 57 yrs old Male presents to ER via Wheelchair with complaints of cp Constipation, Medication Refill. 15:30 The patient presents to the emergency department requesting refill(s) for: Gabapentin cp 800 mg. 15:30 The patient chronically suffers from chronic pain, neuropathy. Patient also requesting cp stool softener. Reports he does not want to have to strain to have bowel movement. Historical: - Allergies: 15:32 Aspirin; ap3 15:32 azathioprine sodium; ap3 15:32 Imuran; ap3 15:32 Lyrica; ap3 15:32 NSAIDS (Non-Steroidal Anti-Inflamma; ap3 - PMHx: 15:32 Arthritis; Chronic pain; Hypertension; Kidney stones; psoriatic arthirits; stroke 2010; ap3 - Immunization history:: Client reports receiving the 2nd dose of the Covid vaccine. - Social history:: Smoking status: Patient denies any tobacco usage or history of. ROS: 15:33 Constitutional: Negative for body aches, chills, fever, poor PO intake. cp 15:33 Eyes: Negative for injury, pain, redness, and discharge. cp 15:33 ENT: Negative for drainage from ear(s), ear pain, sore throat, difficulty swallowing, difficulty handling secretions. 15:33 Cardiovascular: Negative for chest pain, edema, palpitations. 15:33 Respiratory: Negative for cough, shortness of breath, wheezing. 15:33 Abdomen/GI: Negative for abdominal pain, nausea, vomiting, and diarrhea. 15:33 Neuro: Negative for altered mental status, headache, weakness. 15:33 All other systems are negative. Exam: 15:37 Constitutional: The patient appears in no acute distress, alert, awake, cp non-diaphoretic, non-toxic, well developed, well nourished. 15:37 Head/Face: Normocephalic, atraumatic. cp 15:37 Eyes: Periorbital structures: appear normal, Conjunctiva: normal, no exudate, no injection, Sclera: no appreciated abnormality, Lids and lashes: appear normal, bilaterally. 15:37 ENT: External ear(s): are unremarkable, Nose: is normal, Mouth: Lips: moist, Oral mucosa: moist, Posterior pharynx: Airway: no evidence of obstruction, patent. 15:37 Chest/axilla: Inspection: normal. 15:37 Cardiovascular: Rate: normal. 15:37 Respiratory: the patient does not display signs of respiratory distress, Respirations: normal, no use of accessory muscles, no retractions, labored breathing, is not present. 15:37 Abdomen/GI: Inspection: abdomen appears normal, Bowel sounds: active, all quadrants, Palpation: abdomen is soft and non-tender, in all quadrants. 15:37 Back: CVA tenderness, is absent. 15:37 Musculoskeletal/extremity: left below the knee amputation. 15:37 Neuro: Orientation: to person, place \T\ time. Mentation: is normal. Vital Signs: 15:29 BP 142 / 96; Pulse 91; Temp 97.9; Pulse Ox 97% ; Weight 75.75 kg; Height 5 ft. 8 in. ap3 (172.72 cm); 15:29 Body Mass Index 25.39 (75.75 kg, 172.72 cm) ap3 MDM: 15:42 Patient medically screened. cp 15:42 Data reviewed: vital signs, nurses notes. cp 15:42 Counseling: I had a detailed discussion with the patient and/or guardian regarding: the cp historical points, exam findings, and any diagnostic results supporting the discharge/admit diagnosis, to return to the emergency department if symptoms worsen or persist or if there are any questions or concerns that arise at home. Administered Medications: No medications were administered Disposition Summary: 05/29/22 15:42 Discharge Ordered Location: Home cp Problem: new cp Symptoms: have improved cp Condition: Stable cp Diagnosis - Encounter for issue of repeat prescription cp - Encounter for screening, unspecified cp Followup: cp - With: Private Physician - When: 1 - 2 days - Reason: Worsening of condition Discharge Instructions: - Discharge Summary Sheet cp - Medicine Refill at the Emergency Department cp Forms: - Medication Reconciliation Form cp - Thank You Letter cp - Antibiotic Education cp - Prescription Opioid Use cp Prescriptions: - gabapentin 800 mg Oral tablet - take 1 tablet by ORAL route 3 times per day; 90 tablet; Refills: 0, Product cp Selection Permitted - Colace 100 mg Oral Capsule - take 1 tablet by ORAL route every 12 hours; 30 tablet; Refills: 0, Product cp Selection Permitted Signatures: Eric Tran PA PA cp Prokisch, Amanda RN RN ap3 Corrections: (The following items were deleted from the chart) 15:42 15:42 Constipation, unspecified cp cp
[2022-05-29 16:32] VITALS: BP 142/96; TEMP 97.9; O2SAT 97
== END 2022-05-29 16:00 | disposition home or self-care (01) ==
LOC: ER 14:40
DX: Z76.0 Encounter for issue of repeat prescription (principal)
CPT/HCPCS: 99283

== ENCOUNTER 2022-07-26 10:22 | Emergency (ER) | payer OTHER ==
--- OUTSIDE RECORDS SUMMARY | 2022-07-26 10:31 | XMS REPORT | Continuity of Care Document ---
:1965 Author Organization [facility] t Address [address] [place] [address] [address] [place] [address] Care Team Providers Name Role Phone Dexter Bravo Ace Primary Care Physician [phone] LINDSEY ARREOLA Attending Clinician Unavailable LOLLY LANDEROS Attending Clinician Unavailable Diana Spears Attending Clinician Unavailable BLAKE JIMENEZ Attending Clinician Unavailable Doctor Unassigned, [place] Attending Clinician Unavailable CHEYANNE Attending Clinician Unavailable Blake Jimenez MD Attending Clinician AILYN PRICE Attending Clinician Unavailable ELIAN LARA Attending Clinician Unavailable Lab, Adc Fam Pob I Attending Clinician Unavailable Irina Hodgson Attending Clinician IRINA HUNTER Attending Clinician Unavailable 2, Adc Lab Attending Clinician Unavailable Dede Diaz MD Attending Clinician Pob, [facility] Lab Main Attending Clinician Unavailable UNKNOWN Attending Clinician Unavailable NALDO CLEMENT Attending Clinician Unavailable KELLI CASTILLO PMayra Attending Clinician Unavailable LINDSEY ARREOLA M.D. Attending Clinician Unavailable LOLLY LANDEROS M.D. Attending Clinician Unavailable JANA ANAYA M.D. Attending Clinician Unavailable MIGUELINA LARA NP Attending Clinician Unavailable CJ CHEN PA Attending Clinician Unavailable IRENE PRITCHETT M.D. Attending Clinician Unavailable YI PICHARDO M.D. Attending Clinician Unavailable MEIR WILSON M.D. Attending Clinician Unavailable TAMMI WEI M.D. Attending Clinician Unavailable AMBREEN_FARJOSELOA Admitting Clinician Unavailable NALDO CLEMENT Admitting Clinician Unavailable Payers Payer Name Policy Type Policy Number Effective Date Expiration Date S gale [facility] COMMUNITY PLAN [id number] 2020 2020 MEDICARE SNP 00:00:00 00:00:00 [employer] STAR [id number] 2014 PLUS 00:00:00 [facility] DUAL [id number] 2021 COMP HMO D SNP 00:00:00 [employer] [place] - [id number] 2014 STAR PLUS MMP - 00:00:00 DUAL ELIGIBLE (MEDICARE - MEDICAID REPLACEMENT HMO) Problems Condition Condition Condition Status Onset Resolution Last Treating Co mments Source Name Details Category Date Date Treatment Clinician Date 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 07-16 [facility] Center care home 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 Disease Active [facility] systemic systemic 07-16 [facility] steroid steroid 00:00: Medical user user 00 Center Leukocytos Leukocytos Disease Active [facility] is is 07[facility]16 [facility] 00:[facility] Center Noninfecte Noninfecte Disease Active U meri d skin d skin 9-16 ity of tear of tear of 00:00: [place] leg, leg, 00 Medical right, right, Branch initial initial encounter encounter Right leg Right leg Disease Active Uni vers pain pain 8-10 ity of 00:00: [place] 00 Medical Branch Skin ulcer Skin ulcer Disease Active U miguelinaers 4-30 ity of 00:00: [place] 00 Medical Branch Therapeuti Therapeuti Disease Active U meri c drug c drug 1-17 ity of monitoring monitoring 00[place]00: [place] 00 [facility] Rash, skin Rash, skin Disease Active 2010-11 U nivers 0-04 ity of 00:00: [place] 00 Medical Branch Vitamin D Vitamin D Disease Active Uni vers deficiency deficiency 8-16 it y of disease disease 00:00: [place] [facility] Bilateral Bilateral Disease Active Uni vers flank pain flank pain 5-27 it y of 00:00: [place] 00 Medical Branch Tinea Tinea Disease Active Univers corporis corporis 4-29 ity of 00:00: [place] [facility] Pathologic Pathologic Disease Active U nivers fracture fracture 1-22 ity of of of 00:00: [place] vertebrae vertebrae 00 Medi luke Branch Drug-induc Drug-induc Disease Active U nivers ed ed 1-22 ity of osteoporos osteoporos 00:[place]: [place] 00 Medical [facility] Personal Personal Disease Active Unive rs History of History of 1-22 it y of Other Other 00:00: [place] Diseases Diseases 00 Medica l of of Branch Digestive Digestive Disease Disease 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 nivers [facility] [place] 2-22 ity of syndrome syndrome 00:00: [place] 00 Medical Branch Encounter Encounter Disease Active 2008-11 Uni vers for for 2-22 ity of long-term long-term [place] (current[place] 00 [facility] use of use of Branch steroids steroids Psoriatic Psoriatic Disease Active Uni vers arthropath arthropath 3-18 it y of y y 00:00: [place] 00 Medical Branch History of History of [...] Date Date Clinician azathiop DA Active SV 2020-0 [facility]13 [place] [facility] pregabal DA Active SV 2020-0 [facility] in 04-13 [place] 00:[facility]: [facility] azathiop DA Active SV HEADACHES, 0 [facility] rine FEVER, 04-13 [place] STOMACHACHE 00:00: [facility] pregabal DA Active SV FACE, 2019-0 [facility] in THROAT, AND 04-13 [place] EXTREMITY 00:00: Healthc SWELLING 00 [facility] Aspirin Propensi Active Nausea And 2019-[address] [facility] [address] ty to Vomiting 07-06 [facility] adverse 00:00: Medical reaction 00 Center s Azathiop Propensi Active Anaphylaxis 2019-[address] rine ty to 07-06 [facility] adverse 00:00: Medical reaction 00 Center s Pregabal Propensi Active Swelling 2019-[address] [facility] [address] in ty to 07-06 [facility] adverse 00:00: Medical reaction 00 Center s ASPIRIN Allergy Active High N\\T\\V 2018-[address] [facility] [address] 07-06 [facility] 00:00: Medical 00 [place] AZATHIOP Allergy Active High Anaphylaxis 2019-[address] RINE 07-06 [facility] 00:00: Medical 00 [place] PREGABAL Allergy Active High Swelling 2019-0 [facility] IN 07-06 [facility] 00:[facility]: Medical 00 Center Pregabal Allergy Active Swelling 2018-0 Other [place] in to 07-21 reaction( Health substanc 00:00: s): FACE, e 00 THROAT, AND EXTREMITY SWELLING Pregabal Propensi Active Rash 2018-0 Univer s in ty to 07-21 ity of adverse 00:00: [place] reaction 00 Medical s Branch PREGABAL DRUG Active Rash 2018-0 Univers IN INGREDI 07-21 ity of 00:00: [place] 00 Medical Branch Aspirin Allergy Active Nausea Only Data [place] to 06-02 migrated Health substanc 00:00: from GE e 00 Centricit y on 03/04/15. Originall y documente d as ASA. Azathiop Allergy Active Swelling Other [place] rine to 06-02 reaction( Health substanc 00:00: s): e 00 HEADACHES , FEVER, STOMACHAC [facility] Originall y documente d as IMURAN. Aspirin Propensi Active Nausea Only Un melchor ty to 06-02 ity of adverse 00:00: [place] reaction 00 Medical s Branch Azathiop Propensi Active Swelling Univ ers rine ty to 06-02 ity of Sodium adverse 00:00: [place] reaction 00 Medical s Branch ASPIRIN DRUG Active NAUSEA ONLY Univ ers INGREDI 06-02 ity of 00:00: [place] 00 Medical Branch AZATHIOP DRUG Active Anaphylaxis Uni vers RINE INGREDI 06-02 ity of SODIUM 00:00: [place] 00 Medical Branch Aspirin drug Active UT TABS allergy Physici ans Imuran drug Active [facility] allergy Physici ans Lyrica drug Active UT CAPS allergy Physici ans Family History Family Member Diagnosis Comments Start Date Stop Date Source Natural mother Diabetes [facility] Mother Family history of [facility] Phys icians diabetes mellitus Mother Family history of [facility] Phys [facility] hypertension Social History Social Habit Start Date Stop Date Quantity Comments Source History of tobacco Cigarette Smoker [facility] History SDOH [facility] Alcohol Binge Medical [facility] History SDOH [facility] Alcohol Comment Medical C enter History SDOH [facility] Alcohol Std Drinks Medica l Center Exposure to Not sure [facility] SARS-CoV-2 (event) Alcohol intake 2019-07-08 2019-07-[address] [facility] 00:00:00 00:00:00 non-drinker of Medical Ce nter alcohol (finding) History SDOH 2019-07-07 2019-07-[address] [facility] Alcohol Frequency 00:00:00 00:00:00 [facility] Tobacco Comment 2019-07-06 2019-07-06 QUIT OVER [address] [facility] 00:00:00 00:00:00 YEARS AGO [facility] Tobacco use and 2019-07-06 2019-07-[address] [facility] [facility] Dianne kes exposure 00:00:00 00:00:00 [facility] Cigarettes smoked 2008-06-02 2008-06-02 Univers ity of current (pack per 00:00:00 00:00:00 ) - Reported Branch Cigarette 2008-06-02 2008-06-02 University of pack-years 00:00:00 00:00:00 [facility] Sex Ass[birth year] At [birth year] [facility] Dianne acevedos 00:00:00 00:00:00 Medical Center Smoking Status Start Date Stop Date Source Tobacco smoking [facility] consumption unknown [facility] smoked tobacco [facility] Former smoker 2019-07-08 00:00:00 2019-07-08 [facility] 00:00:00 Center Medications Ordered Filled Start Stop Current Ordering Indication Dosage Frequency Signature Comments Components Source Medication Medication Date Date Medication? Clinician (SIG) Name Name montelukast 0 Yes UT (Singulair) 2-12 Health 10 MG 00:00: tablet 00 fluocinonid 2021-0 Yes UT e (Lidex) 2-02 Health 0.05 % 00:00: external 00 solution fluocinonid Yes UT e (Lidex) 2-02 Health 0.05 % 00:00: external 00 solution predniSONE 2021-0 Yes UT (Deltasone) 1-26 Health 5 MG tablet 00:00: 00 predniSONE 2021-0 Yes UT (Deltasone) 1-26 Health 5 MG tablet 00:00: 00 gabapentin 2021-0 Yes 800mg [id number] Take 800 UT (Neurontin) 1-12 [id number] mg by H ealth 800 MG 00:00: 3D mouth 3 tablet 00 (three) times a day. HYDROcodone 2021-0 Yes 1{tbl} [id number] Take 1 UT -acetaminop 1-12 [id number] tablet by Health hen ([place]) 00:00: 3D mouth 3 7.5-325 MG 00 (three) tablet times a day. meloxicam 2021-0 Yes 7.5mg Q.5D Take 7.5 UT (Mobic) 7.5 1-12 mg by Health MG tablet 00:00: mouth 2 00 (two) times a day. as directed tiZANidine 2021-0 Yes 4mg Q.5D Take 4 mg UT (Zanaflex) 1-12 by mouth 2 Hea lth 4 MG tablet 00:00: (two) 00 times a day. gabapentin 2-0 Yes 800mg Q.[id number] Take 800 UT (Neurontin) 1-12 [id number] mg by H ealth 800 MG 00:00: 3D mouth 3 tablet 00 (three) times a day. HYDROcodone 2021-0 Yes 1{tbl} Q.[id number] Take 1 UT -acetaminop 1-12 [id number] tablet by Health hen ([place]) 00:00: 3D mouth 3 7.5-325 MG 00 (three) tablet times a day. meloxicam 2021-0 Yes 7.5mg Q.5D Take 7.5 UT (Mobic) 7.5 1-12 mg by Health MG tablet 00:00: mouth 2 00 (two) times a day. as directed tiZANidine 2021-0 Yes 4mg Q.5D Take 4 mg UT (Zanaflex) 1-12 by mouth 2 Hea lth 4 MG tablet 00:00: (two) 00 times a day. fluticasone 0 Yes SHAKE UT (Flonase) 1-10 LIQUID AND Heal th 50 MCG/ACT 00:00: USE 1 nasal spray 00 SPRAY IN EACH NOSTRIL 1 TIME EACH DAY fluticasone 2021-0 Yes SHAKE UT (Flonase) 1-10 LIQUID AND Heal th 50 MCG/ACT 00:00: USE 1 nasal spray 00 SPRAY IN EACH NOSTRIL 1 TIME EACH DAY clobetasol 2020-11 Yes APPLY TO UT (Temovate) 2- PSORIASIS Heal th 0.05 % 00:00: TWICE cream 00 DAILY NEEDED ALTERNATIN G WITH CALCIPOTRI [place] DO NOT USE ON FACE clobetasol 2020-11 Yes APPLY TO UT (Temovate) 2-01 PSORIASIS Heal th 0.05 % 00:00: TWICE cream 00 DAILY NEEDED ALTERNATIN G WITH CALCIPOTRI [place] DO NOT USE ON FACE methocarbam 2020-0 Yes 1000mg Take 1,000 UT ol 6-21 mg by Health (Robaxin) 00:00: mouth. 500 MG 00 tablet methocarbam 2020-0 Yes 1000mg Take 1,000 UT ol 6-21 mg by Health (Robaxin) 00:00: mouth. 500 MG 00 tablet ergocalcife 2020-1 Yes [id number] Take 1 Univers rol, 0-15 capsule by ity of vitamin d2, 00:00: mouth [place] 1,250 mcg 00 weekly. Medical (50,000 Branch unit) capsule ergocalcife 2020-1 Yes [id number] Take 1 Univers rol, 0-15 capsule by ity of vitamin d2, 00:00: mouth [place] 1,250 mcg 00 weekly. Medical (50,000 Branch unit) capsule ergocalcife 2020- Yes [id number] Take 1 Univers rol, 0-15 capsule by ity of vitamin d2, 00:00: mouth [place] 1,250 mcg 00 weekly. Medical (50,000 Branch unit) capsule ergocalcife 2020- Yes [id number] Take 1 Univers rol, 0-15 capsule by ity of vitamin d2, 00:00: mouth [place] 1,250 mcg 00 weekly. Medical (50,000 Branch unit) capsule ergocalcife 2020- Yes [id number] Take 1 Univers rol, 0-15 capsule by ity of vitamin d2, 00:00: mouth [place] 1,250 mcg 00 weekly. Medical (50,000 Branch unit) capsule ergocalcife 2020-2021- No 1{capsu Take 1 UT rol 0-15 11-19 le} capsule by Health (Vitamin 00:00: 05:59 mouth 1 D-2) 1.25 00 :00 (one) time MG (37209 per week. UT) capsule ergocalcife 20202021- No 1{capsu Take 1 UT rol 0-15 11-19 le} capsule by Health (Vitamin 00:00: 05:59 mouth 1 D-2) 1.25 00 :00 (one) time MG ([id number] per week. UT) capsule furosemide 0 Yes Univers 20 mg 8-06 ity of tablet 00:00: [facility] furosemide 2020-0 Yes Univers 20 mg 8-06 ity of tablet 00:00: [facility] furosemide 2020-0 Yes Univers 20 mg 8-06 ity of tablet 00:00: [facility] furosemide 2020-0 Yes Univers 20 mg 8-06 ity of tablet 00:00: [facility] furosemide 2020-0 Yes Univers 20 mg 8-06 ity of tablet 00:00: [facility] furosemide 2020-0 Yes Univers 20 mg 8-06 ity of tablet 00:00: [facility] furosemide 2020-0 Yes Univers 20 mg 8-06 ity of tablet 00:00: [facility] furosemide 2020-0 Yes Univers 20 mg 8-06 ity of tablet 00:00: 00 Medical Branch furosemide 2020-0 Yes Univers 20 mg 8-06 ity of tablet 00:00: 00 Medical Branch furosemide 2020-0 Yes Univers 20 mg 8-06 ity of tablet 00:00: [place] 00 Medical Branch testosteron 2020-0 Yes [id number] 80mg 0.8 mL by Univers e cypionate 2-19 Intramuscu it y of 100 mg/mL 00:00: lar route [place] as injection 00 weekly. Medical Branch testosteron 2020-0 Yes [id number] 80mg 0.8 mL by Univers e cypionate 2-19 Intramuscu it y of 100 mg/mL 00:00: lar route [place] as injection 00 weekly. Medical Branch testosteron 2020-0 Yes [id number] 80mg 0.8 mL by Univers e cypionate 2-19 Intramuscu it y of 100 mg/mL 00:00: lar route [place] as injection 00 weekly. Medical Branch testosteron 2020-0 Yes [id number] 80mg 0.8 mL by Univers e cypionate 2-19 Intramuscu it y of 100 mg/mL 00:00: lar route [place] as injection 00 weekly. Medical Branch testosteron 2020-0 Yes [id number] 80mg 0.8 mL by Univers e cypionate 2-19 Intramuscu it y of 100 mg/mL 00:00: lar route [place] as injection 00 weekly. Medical Branch testosteron 2020-0 Yes [id number] 80mg 0.8 mL by Univers e cypionate 2-19 Intramuscu it y of 100 mg/mL 00:00: lar route [place] as injection 00 weekly. Medical Branch testosteron 2020-0 Yes [id number] 80mg 0.8 mL by Univers e cypionate 2-19 Intramuscu it y of 100 mg/mL 00:00: lar route [place] as injection 00 weekly. Medical Branch testosteron 2020-0 Yes [id number] 80mg 0.8 mL by Univers e cypionate 2-19 Intramuscu it y of 100 mg/mL 00:00: lar route [place] as injection 00 weekly. Medical Branch testosteron 2020-0 Yes [id number] 80mg 0.8 mL by Univers e cypionate 2-19 Intramuscu it y of 100 mg/mL 00:00: lar route [place] as injection 00 weekly. Medical Branch testosteron 2020-0 Yes [id number] 80mg 0.8 mL by Univers e cypionate 2-19 Intramuscu it y of 100 mg/mL 00:00: lar route [place] as injection 00 weekly. Medical Branch testosteron 2020-0 Yes [id number] 80mg 0.8 mL by Univers e cypionate 2-19 Intramuscu it y of 100 mg/mL 00:00: lar route [place] as injection 00 weekly. Medical Branch testosteron 2020-0 Yes [id number] 80mg 0.8 mL by Univers e cypionate 2-19 Intramuscu it y of 100 mg/mL 00:00: lar route [place] as injection 00 weekly. Medical Branch testosteron 2020-0 Yes [id number] 80mg 0.8 mL by [facility] e cypionate 2-19 Intramuscu it y of 100 mg/mL 00:00: lar route [place] as injection 00 weekly. Medical Branch testosteron 2020-0 Yes [id number] 80mg 0.8 mL by [facility] e cypionate 2-19 Intramuscu it y of 100 mg/mL 00:00: lar route [place] injection 00 weekly. Medical Branch testosteron 2019-0 2020- No [id number] 80mg 0.8 mL by [facility] e cypionate 207-21 Intramuscu i ty of 100 mg/mL 00:00: 00:00 lar route [place] injection 00 :00 weekly. Medical Branch testosteron 2019-0 2020- No [id number] 80mg 0.8 mL by [facility] e cypionate 207-21 Intramuscu i ty of 100 mg/mL 00:00: 00:00 lar route [place] injection 00 :00 weekly. Medical Branch testosteron 2020-0 Yes [id number] 80mg 0.8 mL by [facility] e cypionate 2-14 Intramuscu it y of 100 mg/mL 00:00: lar route [place] injection 00 weekly. Medical Branch testosteron 2020-0 Yes [id number] 80mg 0.8 mL by [facility] e cypionate 2-14 Intramuscu it y of 100 mg/mL 00:00: lar route [place] as injection 00 weekly. Medical Branch testosteron 2019-0 2020- No [id number] 80mg 0.8 mL by [facility] e cypionate 2-14 02-19 Intramuscu i ty of 100 mg/mL 00:00: 00:00 lar route [place] injection 00 :00 weekly. Medical Branch Syringe 2018- Yes [id number] Use as Univ ers with 2-16 directed ity of Needle, 00:00: once a [place] Disp, 1 mL 00 week Medical 20 gauge x Branch 1" Syrg Syringe 2018- Yes [id number] Use as Univ ers with 2-16 directed ity of Needle, 00:00: once a [place] Disp, 1 mL 00 week Medical 20 gauge x Branch 1" Syrg Syringe 2018- Yes [id number] Use as Univ ers with 2-16 directed ity of Needle, 00:00: once a [place] Disp, 1 mL 00 week Medical 20 gauge x Branch 1" Syrg Syringe 2018- Yes [id number] Use as Univ ers with 2-16 directed ity of Needle, 00:00: once a [place] Disp, 1 mL 00 week Medical 20 gauge x Branch 1" Syrg Syringe 2018- Yes [id number] Use as Univ ers with 2-16 directed ity of Needle, 00:00: once a [place] Disp, 1 mL 00 week Medical 20 gauge x Branch 1" Syrg Syringe 2018- Yes [id number] Use as Univ ers with 2-16 directed ity of Needle, 00:00: once a [place] Disp, 1 mL 00 week Medical 20 gauge x Branch 1" Syrg Syringe 2018- Yes [id number] Use as Univ ers with 2-16 directed ity of Needle, 00:00: once a [place] Disp, 1 mL 00 week Medical 20 gauge x Branch 1" Syrg Syringe 2018- Yes [id number] Use as Univ ers with 2-16 directed ity of Needle, 00:00: once a [place] Disp, 1 mL 00 week Medical 20 gauge x Branch 1" Syrg Syringe 2018- Yes [id number] Use as Univ ers with 2-16 directed ity of Needle, 00:00: once a [place] Disp, 1 mL 00 week Medical 20 gauge x Branch 1" Syrg Syringe 2018- Yes [id number] Use as Univ ers with 2-16 directed ity of Needle, 00:00: once a [place] Disp, 1 mL 00 week Medical 20 gauge x Branch 1" Syrg Syringe 2018- Yes [id number] Use as Univ ers with 2-16 directed ity of Needle, 00:00: once a [place] Disp, 1 mL 00 week Medical 20 gauge x Branch 1" Syrg Syringe 2018-11 Yes [id number] Use as Univ ers with 2-16 directed ity of Needle, 00:00: once a [place] Disp, 1 mL 00 week Medical 20 gauge x Branch 1" Syrg Syringe 2018-11 Yes [id number] Use as Univ ers with 2-16 directed ity of Needle, 00:00: once a [place] Disp, 1 mL 00 week Medical 20 gauge x Branch 1" Syrg Syringe 2018-11 Yes [id number] Use as Univ ers with 2-16 directed ity of Needle, 00:00: once a [place] Disp, 1 mL 00 week Medical 20 gauge x Branch 1" Syrg Syringe 2018-11 Yes [id number] Use as Univ ers with 2-16 directed ity of Needle, 00:00: once a [place] Disp, 1 mL week Medical 20 gauge x Branch 1" Syrg testosteron 2018-11 Yes [id number] 80mg 0.8 mL by Univers e cypionate 2-16 Intramuscu it y of 100 mg/mL 00:00: lar route [place] as injection 00 weekly. Medical Branch Syringe 2018-11 Yes [id number] Use as Univ ers with 2-16 directed ity of Needle, 00:00: once a [place] Disp, 1 mL 00 week Medical 20 gauge x Branch 1" Syrg testosteron 2018-11 Yes [id number] 80mg 0.8 mL by Univers e cypionate 2-16 Intramuscu it y of 100 mg/mL 00:00: lar route [place] as injection 00 weekly. Medical Branch Syringe 2018-11 Yes [id number] Use as Univ ers with 2-16 directed ity of Needle, 00:00: once a [place] Disp, 1 mL 00 week Medical 20 gauge x Branch 1" Syrg testosteron 2018-11 Yes [id number] 80mg 0.8 mL by Univers e cypionate 2-16 Intramuscu it y of 100 mg/mL 00:00: lar route [place] as injection 00 weekly. Medical Branch Syringe 2018-11 Yes [id number] Use as Univ ers with 2-16 directed ity of Needle, 00:00: once a [place] Disp, 1 mL 00 week Medical 20 gauge x Branch 1" Syrg testosteron 2018-11 Yes [id number] 80mg 0.8 mL by Univers e cypionate 16 Intramuscu it y of 100 mg/mL 00:00: lar route [place] as injection 00 weekly. Medical Branch Syringe 2018-11 Yes [id number] Use as Univ ers with 2-16 directed ity of Needle, 00:00: once a [place] Disp, 1 mL 00 week Medical 20 gauge x Branch 1" Syrg Syringe 2018-11 Yes [id number] Use as Univ ers with 16 directed ity of Needle, 00:00: once a [place] Disp, 1 mL 00 week Medical 20 gauge x Branch 1" Syrg Syringe 2018-11 2020- No [id number] Use as Uni vers with -07-21 directed ity of Needle, 00:00: 00:00 once a [place] Disp, 1 mL 00 :00 week Medical 20 gauge x Branch 1" Syrg Syringe 2018-11 2020- No [id number] Use as Uni vers with 12-21 directed ity of Needle, 00:00: 00:00 once a [place] Disp, 1 mL 00 :00 week Medical 20 gauge x Branch 1" Syrg testosteron 2018-11 2020- No [id number] 80mg 0.8 mL by Univers e cypionate 16 -14 Intramuscu i ty of 100 mg/mL 00:00: 00:00 lar route [place] injection 00 :00 weekly. [facility] Branch gabapentin 2018-11 Yes 800mg Take 800 Un [place] 800 mg 2-11 mg by ity of tablet 14:36: mouth. [address] gabapentin 2018-11 Yes 800mg Take 800 Un [place] 800 mg 2-11 mg by ity of tablet 14:36: mouth. [address] gabapentin 2018-11 Yes 800mg Take 800 Un [place] 800 mg 2-11 mg by ity of tablet 14:36: mouth. [address] gabapentin 2018-11 Yes 800mg Take 800 Un [place] 800 mg 2-11 mg by ity of tablet 14:36: mouth. [address] gabapentin 2018-11 Yes 800mg Take 800 Un [place] 800 mg 2-11 mg by ity of tablet 14:36: mouth. [address] gabapentin 2018-11 Yes 800mg Take 800 Un [place] 800 mg 2-11 mg by ity of tablet 14:36: mouth. [address] gabapentin 2018-11 Yes 800mg Take 800 Un [place] 800 mg 2-11 mg by ity of tablet 14:36: mouth. [address] gabapentin 2018- Yes 800mg Take 800 Un [place] 800 mg 2-11 mg by ity of tablet 14:36: mouth. [address] gabapentin 2018- Yes 800mg Take 800 Un [place] 800 mg 2-11 mg by ity of tablet 14:36: mouth. [address] gabapentin 2018- Yes 800mg Take 800 Un [place] 800 mg 2-11 mg by ity of tablet 14:36: mouth. [address] gabapentin 2018- Yes 800mg Take 800 Un [place] 800 mg 2-11 mg by ity of tablet 14:36: mouth. [address] gabapentin 2018- Yes 800mg Take 800 Un [place] 800 mg 2-11 mg by ity of tablet 14:36: mouth. [address] gabapentin 2018- Yes 800mg Take 800 Un [place] 800 mg 2-11 mg by ity of tablet 14:36: mouth. [address] gabapentin 2018- Yes 800mg Take 800 Un [place] 800 mg 2-11 mg by ity of tablet 14:36: mouth. [address] gabapentin 2018- Yes 800mg Take 800 Un [place] 800 mg 2-11 mg by ity of tablet 14:36: mouth. [address] gabapentin 2018- Yes 800mg Take 800 Un [place] 800 mg 2-11 mg by ity of tablet 14:36: mouth. [address] gabapentin 2018- Yes 800mg Take 800 Un [place] 800 mg 2-11 mg by ity of tablet 14:36: mouth. [address] gabapentin 2018- Yes 800mg Take 800 Un [place] 800 mg 2-11 mg by ity of tablet 14:36: mouth. [address] gabapentin 2018- Yes 800mg Take 800 Un [place] 800 mg 2-11 mg by ity of tablet 14:36: mouth. [address] gabapentin 2018- Yes 800mg Take 800 Un [place] 800 mg 2-11 mg by ity of tablet 14:36: mouth. [address] gabapentin 2018- Yes 800mg Take 800 Un [place] 800 mg 2-11 mg by ity of tablet 14:36: mouth. [address] gabapentin 2018- Yes 800mg Take 800 Un [place] 800 mg 2-11 mg by ity of tablet 14:36: mouth. [address] gabapentin 2018- Yes 800mg Take 800 Un [place] 800 mg 2-11 mg by ity of tablet 14:36: mouth. [address] gabapentin 2018- Yes 800mg Take 800 Un [place] 800 mg 2-11 mg by ity of tablet 14:36: mouth. [address] gabapentin 2018- Yes 800mg Take 800 Un [place] 800 mg 2-11 mg by ity of tablet 14:36: mouth. [address] gabapentin 2018- Yes 800mg Take 800 Un [place] 800 mg 2-11 mg by ity of tablet 14:36: mouth. [address] gabapentin 2018- Yes 800mg Take 800 Un [place] 800 mg 2-11 mg by ity of tablet 14:36: mouth. [address] gabapentin 2018- Yes 800mg Take 800 Un [place] 800 mg 2-11 mg by ity of tablet 14:36: mouth. [address] gabapentin 2018- Yes 800mg Take 800 Un [place] 800 mg 2-11 mg by ity of tablet 14:36: mouth. [address] [address] gabapentin 2018- Yes 800mg Take 800 Un melchor 800 mg 2-11 mg by ity of tablet 08:36: mouth. [address] gabapentin 2018- Yes 800mg Take 800 Un [place] 800 mg 2-11 mg by ity of tablet 08:36: mouth. [address] predniSONE 2019- Yes TK 1 T PO Un melchor 5 mg tablet - BID ity of 00:00: [address] predniSONE 2019- Yes TK 1 T PO Un melchor 5 mg tablet - BID ity of 00:00: [address] predniSONE 2019- Yes TK 1 T PO Un mel[place] 5 mg tablet - BID ity of 00:00: [address] predniSONE 2019- Yes TK 1 T PO Un mel[place] 5 mg tablet - BID ity of 00:00: [address] predniSONE 2019- Yes TK 1 T PO Un mel[place] 5 mg tablet - BID ity of 00:00: [address] predniSONE 2019- Yes TK 1 T PO Un mel[place] 5 mg tablet - BID ity of 00:00: [address] predniSONE 2019- Yes TK 1 T PO Un mel[place] 5 mg tablet 12-03 BID ity of 00:00: [place] [facility] predniSONE 2019- Yes TK 1 T PO Un melchor 5 mg tablet 12-03 BID ity of 00:00: [place] [facility] predniSONE 2019- Yes TK 1 T PO Un melchor 5 mg tablet 12-03 BID ity of 00:00: [place] [facility] predniSONE 2019- Yes TK 1 T PO Un melchor 5 mg tablet 12-03 BID ity of 00:00: [place] [facility] predniSONE 2019- Yes TK 1 T PO Un melchor 5 mg tablet 12-03 BID ity of 00:00: [place] [facility] predniSONE 2019- Yes TK 1 T PO Un melchor 5 mg tablet 12-03 BID ity of 00:00: [address] predniSONE 2019- Yes TK 1 T PO Un melchor 5 mg tablet 12-03 BID ity of 00:00: [address] predniSONE 2019- Yes TK 1 T PO Un melchor 5 mg tablet 12-03 BID ity of 00:00: [address] predniSONE 2019- Yes TK 1 T PO Un melchor 5 mg tablet 12-03 BID ity of 00:00: [address] predniSONE 2019- Yes TK 1 T PO Un melchor 5 mg tablet 12-03 BID ity of 00:00: [address] predniSONE 2019- Yes TK 1 T PO Un mel[place] 5 mg tablet 12-03 BID ity of 00:00: [address] predniSONE 2019- Yes TK 1 T PO Un melchor 5 mg tablet 12-03 BID ity of 00:00: [place] [facility] predniSONE 2019- Yes TK 1 T PO Un melchor 5 mg tablet 12-03 BID ity of 00:00: [address] predniSONE 2019- Yes TK 1 T PO Un melchor 5 mg tablet 12-03 BID ity of 00:00: [address] predniSONE 2019- Yes TK 1 T PO Un melchor 5 mg tablet 12-03 BID ity of 00:00: [place] [facility] predniSONE 2019- Yes TK 1 T PO Un melchor 5 mg tablet 12-03 BID ity of 00:00: [address] predniSONE 2019- Yes TK 1 T PO Un melchor 5 mg tablet 12-03 BID ity of 00:00: [address] predniSONE 2018- Yes TK 1 T PO Un melchor 5 mg tablet 12-03 BID ity of 00:00: [place] [facility] predniSONE 2019- Yes TK 1 T PO Un melchor 5 mg tablet 12-03 BID ity of 00:: [place] [facility] predniSONE 2018- Yes TK 1 T PO Un melchor 5 mg tablet 12-03 BID ity of 00:: [place] [facility] predniSONE 2018- Yes TK 1 T PO Un melchor 5 mg tablet 12-03 BID ity of 00:: [place] [facility] predniSONE 2018- Yes TK 1 T PO Un melchor 5 mg tablet 12-03 BID ity of 00:: [place] [facility] predniSONE 2019- Yes TK 1 T PO Un melchor 5 mg tablet 12-03 BID ity of :: [place] [facility] predniSONE 2018- Yes TK 1 T PO Un melchor 5 mg tablet 12-03 BID ity of 00:00: [place] [facility] predniSONE 2018- Yes TK 1 T PO Un melchor 5 mg tablet 12-03 BID ity of 00:00: [place] [facility] predniSONE Yes 5mg Q.5D Take [address] (DELTASONE) 9-11 by mouth 2 Dianne kes 5 MG tablet 14:01: (two) Medic al 49 times Center daily. gabapentin Yes 800mg Q.[id number] Take [address] (NEURONTIN) 9-11 [id number] mg by L ukes 800 MG 14:01: [...] 14:01: as needed. Medica l capsule 49 [place] teriparatid Yes QD Inject [facility] (FORTEO 9-11 subcutaneo Luke s SUBQ) 14:01: usly daily Medica l 49 . Center testosteron Yes 200mg Q7D Inject [address] cypionate 9-11 mg [facility] (DEPOTESTOT 14:01: intramuscu Medical ERONE 49 larly once Center CYPIONATE) a week. 200 mg/mL injection predniSONE Yes 5mg Q.5D Take [address] (DELTASONE) 9-11 by mouth 2 Dianne kes 5 MG tablet 14:01: (two) Medic al 49 times Center daily. gabapentin Yes 800mg Q.[id number] Take [address] (NEURONTIN) 9-11 [id number] mg by L ukes 800 MG 14:01: [...] MG 3-30 [place] capsule a [facility] (51217 UT) (84877 UT) 00:00: week for ans Oral Oral 00 12 weeks. Capsule Capsule esomeprazol Yes Univer s e 40 mg 3-23 ity of capsule 00:00: [address] esomeprazol Yes Univer s e 40 mg 3-23 ity of capsule 00:00: [address] esomeprazol Yes Univer s e 40 mg 3-23 ity of capsule 00:00: [place] [facility] esomeprazol 2017-0 Yes Univer s e 40 mg 3-23 ity of capsule 00:00: [place] 00 [facility] esomeprazol 2017-0 Yes Univer s e 40 mg 3-23 ity of capsule 00:00: [place] [facility] esomeprazol 2017-0 Yes Univer s e 40 mg 3-23 ity of capsule 00:00: [place] [facility] esomeprazol 2017-0 Yes Univer s e 40 mg 3-23 ity of capsule 00:00: [place] [facility] esomeprazol 2017-0 Yes Univer s e 40 mg 3-23 ity of capsule 00:00: [place] [facility] esomeprazol 2017-0 Yes Univer s e 40 mg 3-23 ity of capsule 00:00: [place] [facility] esomeprazol 2017-0 Yes Univer s e 40 mg 3-23 ity of capsule 00:00: [place] [facility] esomeprazol 2017-0 Yes Univer s e 40 mg 3-23 ity of capsule 00:00: [place] [facility] esomeprazol 2017-0 Yes Univer s e 40 mg 3-23 ity of capsule 00:00: [place] [facility] esomeprazol 2017-0 Yes Univer s e 40 mg 3-23 ity of capsule 00:00: [place] [facility] esomeprazol 2017-0 Yes Univer s e 40 mg 3-23 ity of capsule 00:00: [place] [facility] esomeprazol 2017-0 Yes Univer s e 40 mg 3-23 ity of capsule 00:00: [place] [facility] esomeprazol 2017-0 Yes Univer s e 40 mg 3-23 ity of capsule 00:00: [place] [facility] esomeprazol 2017-0 Yes Univer s e 40 mg 3-23 ity of capsule 00:00: [place] [facility] esomeprazol 2017-0 Yes Univer s e 40 mg 3-23 ity of capsule 00:00: [place] [facility] esomeprazol 2017-0 Yes Univer s e 40 mg 3-23 ity of capsule 00:00: [place] [facility] esomeprazol 2017-0 Yes Univer s e 40 mg 3-23 ity of capsule 00:00: [place] [facility] esomeprazol 2017-0 Yes Univer s e 40 mg 3-23 ity of capsule 00:00: [place] [facility] esomeprazol 2017-0 Yes Univer s e 40 mg 3-23 ity of capsule 00:00: [place] [facility] esomeprazol 2017-0 Yes Univer s e 40 mg 3-23 ity of capsule 00:00: [place] [facility] esomeprazol 2017-0 Yes Univer s e 40 mg 3-23 ity of capsule 00:00: [place] [facility] esomeprazol 2017-0 Yes Univer s e 40 mg 3-23 ity of capsule 00:00: [place] [facility] esomeprazol 2017-0 Yes Univer s e 40 mg 3-23 ity of capsule 00:00: [place] [facility] esomeprazol 2017-0 Yes Univer s e 40 mg 3-23 ity of capsule 00:00: [place] [facility] esomeprazol 2017-0 Yes Univer s e 40 mg 3-23 ity of capsule 00:00: [place] [facility] esomeprazol 2017-0 Yes Univer s e 40 mg 3-23 ity of capsule 00:00: [place] [facility] esomeprazol 2017-0 Yes Univer s e 40 mg 3-23 ity of capsule 00:00: [place] [facility] esomeprazol 2017-0 Yes Univer s e 40 mg 3-23 ity of capsule 00:00: [place] [facility] oxyCODONE-a 2017-0 Yes Wild agarwal cetaminophe 3-07 ity of n 10-325 mg 00:00: [place] per tablet Medical Branch oxyCODONE-a 2017-0 Yes Wild agarwal cetaminophe 3-07 ity of n 10-325 mg 00:00: [place] per tablet Medical Branch oxyCODONE-a 2016-0 Yes Wild s cetaminophe 3-07 ity of n 10-325 mg 00:00: [place] per tablet Medical Branch oxyCODONE-a 2016-0 Yes Wild agarwal cetaminophe 3-07 ity of n 10-325 mg 00:00: [place] per tablet Medical Branch oxyCODONE-a 2017-0 Yes Univer s cetaminophe 3-07 ity of n 10-325 mg 00:00: [place] per tablet 00 Medical Branch oxyCODONE-a Yes Univchristiana s cetaminophe 3-07 ity of n 10-325 mg 00:00: [place] per tablet 00 Medical Branch oxyCODONE-a Yes Wild s cetaminophe 3-07 ity of n 10-325 mg 00:00: [place] per tablet Medical Branch oxyCODONE-a Yes Wild s cetaminophe 3-07 ity of n 10-325 mg 00:00: [place] per tablet 00 Medical Branch oxyCODONE-a Yes Wild s cetaminophe 3-07 ity of n 10-325 mg 00:00: [place] per tablet Medical Branch oxyCODONE-a Yes Wild agarwal cetaminophe 3-07 ity of n 10-325 mg 00:00: [place] per tablet 00 Medical Branch oxyCODONE-a Yes Wild agarwal cetaminophe 3-07 ity of n 10-325 mg 00:00: [place] per tablet 00 Medical Branch oxyCODONE-a Yes Wild s cetaminophe 3-07 ity of n 10-325 mg 00:00: [place] per tablet 00 Medical Branch oxyCODONE-a Yes Wild agarwal cetaminophe 3-07 ity of n 10-325 mg 00:00: [place] per tablet 00 Medical Branch oxyCODONE-a Yes Wild agarwal cetaminophe 3-07 ity of [...] per tablet 00 Medical Branch oxyCODONE-a Yes Univer s cetaminophe 3-07 ity of n 10-325 mg 00:00: [place] per tablet 00 Medical Branch oxyCODONE-a 0 Yes Univer s cetaminophe 3-07 ity of n 10-325 mg 00:00: [place] per tablet 00 Medical Branch oxyCODONE-a Yes Univer s cetaminophe 3-07 ity [...] 00:00: [place] per tablet 00 Medical Branch predniSONE predniSONE 2016- Yes Q0.5D TAKE 1 UT 5 MG [...] ans Tablet Tablet 00 DAILY Amitriptyli Amitriptyli Yes EMIR 1 TAKE 1 UT ne HCl - 25 ne HCl - 25 2-08 KATIE Janie TABLET AT [facility] MG Oral MG Oral 00:00: BEDTIME. ans Tablet Tablet 00 teriparatid Yes [id number] 20ug inject Univers e (FORTEO) 1-31 0.08 mL ity of 20 mcg/dose 00:00: [place] the [place] - 600 00 skin Medical mcg/2.4 mL daily. Branch injection teriparatid Yes [id number] 20ug inject Univers e (FORTEO) 1-31 0.08 mL ity of 20 mcg/dose 00:00: [place] the [place] - 600 00 skin Medical mcg/2.4 mL daily. Branch injection teriparatid Yes [id number] 20ug inject Univers e (FORTEO) 1-31 0.08 mL ity of 20 mcg/dose 00:00: [place] the [place] - 600 00 skin Medical mcg/2.4 mL daily. Branch injection teriparatid Yes [id number] 20ug inject Univers e (FORTEO) 31 0.08 mL ity of 20 mcg/dose 00:00: [place] the [place] - 600 00 skin Medical mcg/2.4 mL daily. Branch injection teriparatid Yes [id number] 20ug inject Univers e (FORTEO) 1-31 0.08 mL ity of 20 mcg/dose 00:00: [place] the [place] - 600 00 skin Medical mcg/2.4 mL daily. Branch injection teriparatid Yes [id number] 20ug inject Univers e (FORTEO) 12-05 0.08 mL ity of 20 mcg/dose 00:00: [place] the [place] - 600 00 skin Medical mcg/2.4 mL daily. Branch injection teriparatid Yes [id number] 20ug inject Univers e (FORTEO) 12-05 0.08 mL ity of 20 mcg/dose 00:00: [place] the [place] - 600 00 skin Medical mcg/2.4 mL daily. Branch injection teriparatid Yes [id number] 20ug inject Univers e (FORTEO) 12-05 0.08 mL ity of 20 mcg/dose 00:00: [place] the [place] - 600 00 skin Medical mcg/2.4 mL daily. Branch injection teriparatid Yes [id number] 20ug inject Univers e (FORTEO) 12-05 0.08 mL ity of 20 mcg/dose 00:00: [place] the [place] - 600 00 skin Medical mcg/2.4 mL daily. Branch injection teriparatid Yes [id number] 20ug inject Univers e (FORTEO) 12-05 0.08 mL ity of 20 mcg/dose 00:00: [place] the [place] - 600 00 skin Medical mcg/2.4 mL daily. Branch injection teriparatid Yes [id number] 20ug inject Univers e (FORTEO) 12-05 0.08 mL ity of 20 mcg/dose 00:00: [place] the [place] - 600 00 skin Medical mcg/2.4 mL daily. Branch injection teriparatid Yes [id number] 20ug inject Univers e (FORTEO) 12-05 0.08 mL ity of 20 mcg/dose 00:00: [place] the [place] - 600 00 skin Medical mcg/2.4 mL daily. Branch injection teriparatid 2020- No [id number] 20ug inject Univers e (FORTEO) 12-05 06-10 0.08 mL ity o f 20 mcg/dose 00:00: 00:00 under the [place] [address] 00 :00 skin Medical mcg/2.4 mL daily. Branch injection teriparatid 2020- No [id number] 20ug inject Univers e (FORTEO) 12-05 0.08 mL ity o f 20 mcg/dose 00:00: 00:00 under the [place] [address] 00 :00 skin Medical mcg/2.4 mL daily. Branch injection Immunizations Ordered Filled Immunization Date Status Comments Sour e Immunization Name Name Td 2011-02-16 Completed [facility] 00:00:00 PPD (TB) 2009-01-20 Completed University of 00:00:00 [facility] PPD (TB) 2009-01-20 Completed University of 00:00:00 [facility] PPD (TB) 2009-01-20 Completed University of 00:00:00 [facility] PPD (TB) 2009-01-20 Completed University of 00:00:00 [facility] PPD (TB) 2009-01-20 Completed University of 00:00:00 [facility] PPD (TB) 2009-01-20 Completed University of 00:00:00 [facility] PPD (TB) 2009-01-20 Completed University of 00:00:00 [facility] PPD (TB) 2009-01-20 Completed University of 00:00:00 [facility] PPD (TB) 2009-01-20 Completed University of 00:00:00 [facility] PPD (TB) 2009-01-20 Completed University of 00:00:00 [facility] PPD (TB) 2009-01-20 Completed University of 00:00:00 [facility] PPD (TB) 2009-01-20 Completed University of 00:00:00 [facility] PPD (TB) 2009-01-20 Completed University of 00:00:00 [facility] PPD (TB) 2009-01-20 Completed University of 00:00:00 [facility] PPD (TB) 2009-01-20 Completed University of 00:00:00 [facility] PPD (TB) 2009-01-20 Completed University of 00:00:00 [facility] PPD (TB) 2009-01-20 Completed University of 00:00:00 [facility] PPD (TB) 2009-01-20 Completed University of 00:00:00 [facility] PPD (TB) 2009-01-20 Completed University of 00:00:00 [facility] PPD (TB) 2009-01-20 Completed University of 00:00:00 [facility] PPD (TB) 2009-01-20 Completed University of 00:00:00 [facility] PPD (TB) 2009-01-20 Completed University of 00:00:00 [facility] PPD (TB) 2009-01-20 Completed University of 00:00:00 [facility] PPD (TB) 2009-01-20 Completed University of 00:00:00 [facility] PPD (TB) 2009-01-20 Completed University of 00:00:00 [facility] PPD (TB) 2009-01-20 Completed University of 00:00:00 [facility] PPD (TB) 2009-01-20 Completed University of 00:00:00 [facility] PPD (TB) 2009-01-20 Completed University of 00:00:00 [facility] PPD (TB) 2009-01-20 Completed University of 00:00:00 [facility] PPD (TB) 2009-01-20 Completed University of 00:00:00 [facility] PPD (TB) 2009-01-20 Completed University of 00:00:00 [facility] PPD (TB) 2009-01-20 Completed University of 00:00:00 [facility] PPD (TB) 2009-01-20 Completed University of 00:00:00 [facility] PPD (TB) 2009-01-20 Completed University of 00:00:00 [facility] PPD (TB) 2009-01-20 Completed University of 00:00:00 [facility] PPD (TB) 2009-01-20 Completed University of 00:00:00 [facility] PPD (TB) 2009-01-20 Completed University of 00:00:00 [facility] PPD (TB) 2009-01-20 Completed University of 00:00:00 [facility] PPD (TB) 2009-01-20 Completed University of 00:00:00 [facility] PPD (TB) 2009-01-20 Completed University of 00:00:00 [facility] PPD (TB) 2009-01-20 Completed University of 00:00:00 [facility] PPD (TB) 2009-01-20 Completed University of 00:00:00 [facility] PPD (TB) 2009-01-20 Completed University of 00:00:00 [facility] PPD (TB) 2009-01-20 Completed University of 00:00:00 [facility] PPD (TB) 2009-01-20 Completed University of 00:00:00 [facility] PPD (TB) 2009-01-20 Completed University of 00:00:00 [facility] PPD (TB) 2009-01-20 Completed University of 00:00:00 [facility] PPD (TB) 2009-01-20 Completed University of 00:00:00 [facility] PPD (TB) 2009-01-20 Completed University of 00:00:00 [facility] PPD (TB) 2009-01-20 Completed University of 00:00:00 [facility] PPD (TB) 2009-01-20 Completed University of 00:00:00 [facility] PPD (TB) 2009-01-20 Completed University of 00:00:00 [facility] PPD (TB) 2009-01-20 Completed University of 00:00:00 [facility] PPD (TB) 2009-01-20 Completed University of 00:00:00 [facility] PPD (TB) 2009-01-20 Completed University of 00:00:00 [facility] PPD (TB) 2009-01-20 Completed University of 00:00:00 [facility] PPD (TB) 2009-01-20 Completed University of 00:00:00 [facility] PPD (TB) 2009-01-20 Completed University of 00:00:00 [facility] PPD (TB) 2009-01-20 Completed University of 00:00:00 [facility] PPD (TB) 2009-01-20 Completed University of 00:00:00 [facility] PPD (TB) 2009-01-20 Completed University of 00:00:00 [facility] PPD (TB) 2009-01-20 Completed University of 00:00:00 [facility] Vital Signs Vital Name Observation Time Observation Value Comments Source Body height 2021-12-20 16:05:00 [facility] 2021-12-20 16:05:00 [facility]204 [facility] BMI 2021-12-20 16:05:00 24.81 kg/m2 [facility] Systolic blood 2020-07-21 18:47:00 109 mm[Hg] Univer sity of pressure [facility] Diastolic blood 2020-07-21 18:47:00 74 mm[Hg] Unive rsity of pressure [facility] Heart rate 2020-07-21 18:47:00 104 /min Universi ty of [facility] Body height 2020-07-21 18:47:00 172.7 cm [facility] [place] [facility] Body weight 2020-07-21 18:47:00 69.4 kg [facility] [place] [facility] BMI 2020-07-21 18:47:00 23.26 kg/m2 Universi ty of [facility] Oxygen saturation in 2020-07-21 18:47:00 98 /min University of Arterial blood by [place] [facility] Pulse oximetry Branch Systolic blood 2020-07-21 18:47:00 109 mm[Hg] Univer sity of pressure [place] [facility] Diastolic blood 2020-07-21 18:47:00 74 mm[Hg] Unive rsity of pressure [facility] Heart rate 2020-07-21 18:47:00 104 /min Universi ty of [facility] Body height 2020-07-21 18:47:00 172.7 cm [facility] [place] [facility] [place] Body weight 2020-07-21 18:47:00 69.4 kg [facility] [place] [facility] BMI 2020-07-21 18:47:00 23.26 kg/m2 [facility] [place] [facility] Oxygen saturation in 2020-07-21 18:47:00 98 /min University of Arterial blood by [place] [facility] P[facility] oximetry Branch Systolic blood 2020-04-14 16:07:00 120 mm[Hg] Univer sity of pressure [place] [facility] Diastolic blood 2020-04-14 16:07:00 82 mm[Hg] Unive rsity of pressure [facility] Heart rate 2020-04-14 16:07:00 101 /min Universi ty of [facility] Respiratory rate 2020-04-14 16:07:00 18 /min Univ ersity of [facility] Body weight 2020-04-14 16:07:00 71.668 kg [facility]i [facility] [place] [facility] BMI 2020-04-14 16:07:00 21.43 kg/m2 Universi ty of [facility] Height 2018-05-31 14:24:00 71 [in_us] [facility] [...] Time Performing Clinician Source Performed REFERRAL- REQUEST/RESPONSE 2022-05-12 05:01:00 Doctor Unassigned , [facility] [place] [facility] REFERRAL- REQUEST/RESPONSE 2020-08-09 05:01:00 Doctor Unassigned , [facility] [place] [facility] REFERRAL- REQUEST/RESPONSE 2020-07-28 05:01:00 Doctor Unassigned , [facility] [place] [facility] AGREEMENTS AUTHORIZATIONS 2019-11-27 06:01:00 Doctor Unassigned, [facility] AND IRREVOCABLE [place] [facility] ASSIGNMENTS (FORM 2000) [Q] C TELOPEPTIDE (CTX) 2019-04-17 00:00:00 [facility] [Q] PROCOLLAGEN TYPE I 2019-04-17 00:00:00 [facility] INTACT N TERMINAL PROPEPTIDE [Q] VITAMIN D, 25-HYDROXY, 2019-04-17 00:00:00 [facility] LC/MS/MS [QLH] CMP W/EGFR 2019-04-17 00:00:00 [facility] [QLH] MAGNESIUM 2019-04-17 00:00:00 [facility] [QLH] PHOSPHATE ( 2019-04-17 00:00:00 [facility] rosita PHOSPHORUS) [QLH] PTH, INTACT (WITHOUT 2019-04-17 00:00:00 [facility] CALCIUM) [QLH] TSH, 3RD GENERATION 2019-04-17 00:00:00 [facility] W/REFLEX TO FT4 [O] Dexa Scan ([employer] 2019-04-17 00:00:00 [facility] X-Ray) [id number] [U] XRAY ELBOW MIN 3 VWS 2018-08-09 00:00:00 [facility] LEFT [id number] [QLH] SED RATE BY MODIFIED 2018-04-15 00:00:00 [facility] BOAZ [QLH] C-REACTIVE PROTEIN 2018-04-15 00:00:00 [facility] [...] Medica l Center colon (procedure) [code = 731319534] Future Scheduled 2020-07-06 INFLUENZA VACCINE (#1) C [...] Luke s Test 00:00:00 (procedure) [code = [facility] [id number]] Future Scheduled [address] [facility] Test 00:00:00 0-64 YRS (1 of 3 - Medical C enter PCV13) [code = PNEUMOCOCCAL VACCINE 0-64 YRS (1 of 3 - PCV13)] Encounters Start End Encounter Admission Attending Care Care Encounter Source Date/Time Date/Time Type Type Clinicians Facility Department ID 2021-12-20 Outpatient [facility] [id number] [place] 10:13:23 [facility] 2021-12-20 Outpatient [facility] [id number] [place] 10:07:08 [facility] 2021-12-12 Outpatient ELBA, [facility] [id number] [place] 15:49:45 [facility] 2021-09-22 Outpatient LANDEROS, [facility] [id number] [place] 14:26:36 [facility] 2020-04-16 [facility] [id number] [facility] 07:30:00 , Diana [address] [facility] 2022-08-22 2022-08-22 Outpatient Stevie [facility] [id number] Univers 15:00:00 15:00:00 BLAKE [id number] [facility] 2022-08-22 2022-08-22 Outpatient Stevie [facility] [id number] Univers 15:00:00 15:00:00 BLAKE [facility] 2022-05-12 2022-05-12 Orders Doctor GIA [id number] Univers 00:00:00 00:00:00 Only Unassigned, DANYELL [id number] ity of [place] [facility] [id number] Florentino as [id number] [address] 2022-02-27 2022-02-27 Outpatient [facility] [id number] [place] 11:00:00 11:00:00 BINDU [id number] [facility] 2022-02-22 2022-02-22 [facility] [id number] [facility] 00:00:00 00:00:00 [facility] [id number] it y of [place] [id number] Florentino as WEI?BLEA [id number] [address] MEDICAL OFFICE [facility] 2021-12-20 2021-12-20 Office [facility] [id number] [place] 10:30:00 10:45:00 Visit AILYN MCKEON AND [id number] Health [facility] [id number] MEDICAL [id number] AYAZZA 2 2021-12-12 2021-12-12 Office CRISTIANA Landeros [facility] [id number] [place] 15:00:00 15:23:42 Visit Lolly MCKEON AND [id number] Health [place] [id number] MEDICAL [id number] [address] 2021-08-23 2021-08-23 Outpatient R [facility] [id number] Univers 09:30:00 09:30:[id number] [facility] 2021-08-23 2021-08-23 Outpatient R [facility] [id number] Univers 09:30:00 09:30:[address] [facility] 2021-08-02 2021-08-02 Outpatient R [facility] [id number] Univers 12:00:00 12:00:[id number] [facility] 2021-08-02 2021-08-02 [facility] [id number] Univers 12:00:00 12:00:00 [facility]-07-08 2021-07-08 [facility] [id number] Univers 11:00:00 11:00:[id number] [facility] 2021-06-28 2021-06-28 Outpatient R MARCO [facility] [id number] Univers 11:00:00 11:00:00 ELIAN [id number] [facility] 2020-12-24 2020-12-24 Laboratory Lab, Adc Fam Pob I [facility] 1.2. 840.114 [id number] Univers 15:27:51 15:47:51 Only Irina Hunter [facility] 350.1.13.10 ity [facility] 4.2.7.2.686 Florentino as Professio [phone] [place] dic[address] Office Building One 2020-12-24 2020-12-24 Outpatient [facility] [id number] Univers 15:40:00 15:40:00 [id number] [facility] 2020-12-24 2020-12-24 Outpatient R [facility] [id number] Univers 15:40:00 15:40:00 IRINA [facility] 2020-08-20 2020-08-20 [facility] [id number] [id number] 00:00:00 00:00:00 [facility] 350.1.13.10 [place] 4.2.7.2.686 Professio [phone] [address] 2020-08-20 2020-08-20 [facility]phone [facility] 1.2.402.758 [id number] Univers 00:00:00 00:00:00 [facility] 350.1.13.10 i [place] of [place] [phone] [place] dical [facility] 220 [facility] 2020-08-19 2020-08-19 Telephone Jimenez, [facility] 1.2.262.370 [id number] 00:00:00 00:00:00 [place] 350.1.13.10 [place] 4.2.7.2.686 Professio [phone] [facility] 220 [facility] 2020-08-19 2020-08-19 Telephone Jimenez, [facility] 1.2.866.630 [id number] [facility] 00:00:00 00:00:00 Vickiong [place] 350.1.13.10 i [place] [phone] [place] dical [facility] 220 [facility] 2020-08-09 2020-08-09 Orders Doctor GIA 1.2.840.114 [id number] 00:00:00 00:00:00 Only Unassigned, DANYELL 350.1.13.10 [place] [facility] 4.2.7.2.686 [phone] [facility] 2020-08-09 2020-08-09 Orders Doctor GIA 1.2.840.114 [id number] [facility] 00:00:00 00:00:00 Only Unassigned, DANYELL 350.1.13.10 ity of [place] [facility] 4.2.7.2.686 Florentino as [phone] [address] 2020-07-29 2020-07-29 Sales Agent Financial Report Service 2, Adc Lab [facility] 1.2.840.114 [id number] 09:40:34 09:55:34 Visit [place] 350.1.13.10 [place] 4.2.7.2.686 Professio [phone] [address] 2020-07-29 2020-07-29 Sales Agent Financial Report Service 2, Adc Lab [facility] 1.2.840.114 [id number] [facility] 09:40:34 09:55:34 Visit JimenezBlake Maggie 350.1.13.10 ity of [place].2.[place] Profess[place] [phone] [place] dic[address] 2020-07-29 2020-07-29 Outpatient R [facility] [id number] [facility] 09:45:00 09:45:00 [id number] ity of [facility] 2020-07-29 2020-07-29 Outpatient R [facility] [id number] Univers 09:45:00 09:45:00 ity of [facility] 2020-07-28 2020-07-28 Outpatient R [facility] [id number] Univers 09:00:00 09:00:00 [id number] ity of [facility] 2020-07-28 2020-07-28 Outpatient R [facility] [id number] Univers 09:00:00 09:00:[address] [facility] 2020-07-28 2020-07-28 Orders Doctor GIA 1.2.840.114 [id number] 00:00:00 00:00:00 Only Unassigned, DANYELL 350.1.13.10 [place] [facility] 4.2.7.2.686 [phone] [id number] 2020-07-28 Orders Doctor GIA 1.2.840.114 [id number] Univers 00:00:00 00:00:00 Only Unassigned, DANYELL 350.1.13.10 ity of [place] [facility] 4.2.7.2.686 Florentino as [phone] [address] 2020-07-21 2020-07-21 Office Jimenez, [facility] 1.2.840.114 [id number] 13:35:42 14:12:35 Visit Blake [place] 350.1.13.10 [place] 4.2.7.2.686 Professio [phone] [address] 2020-07-21 2020-07-21 Office [facility] 1.2.840.114 [id number] Univers 13:35:42 14:12:35 [facility] 350.1.13.10 i [place] [phone] Va dical [address] 2020-07-21 2020-07-21 Outpatient R [facility] [id number] Univers 13:30:00 13:30:[id number] [facility] 2020-07-21 2020-07-21 [facility] [id number] Univers 13:30:00 13:30:00 [facility] 2020-06-30 2020-06-30 [facility] [id number] -20 Univers 10:00:00 10:00:00 WENTONG [id number] ity of [facility] 2020-06-30 2020-06-30 [facility] [id number] Univers 10:00:00 10:00:00 WENTONG ity of [facility] 2020-06-25 2020-06-25 Letter GIA Diaz 1.2.121.863 [id number] Univers 00:00:00 00:00:00 (Out) Dede CHILD 350.1.13.10 it y of [facility] 4.2.7.2.686 Florentino as [phone] [facility] [address] [place] 2020-06-23 2020-06-23 Laboratory Lab, Adc Fam Pob I [facility] 1.2. 840.114 [id number] Univers 10:13:06 10:33:06 Only Irina Hunter [facility] 350.1.13.10 ity of [place] 4.2.7.2.686 Florentino as Professio [phone] Va dical nal [address] [place] Office [address] One 2020-06-23 2020-06-23 Outpatient R [facility] [id number] -[id number] Univers 10:20:00 10:20:00 [id number] ity of [facility] 2020-06-23 2020-06-23 Outpatient R [facility] [id number] Univers 10:20:00 10:20:00 ity of [facility] 2020-06-23 2020-06-23 Letter Doctor NIELSEN 1.2.840.114 [id number] Univers 00:00:00 00:00:00 (Out) UnassDANYELL sam 350.1.13.10 ity of [facility] 4.2.7.2.686 Florentino as [phone] [facility] [address] [place] 2020-05-25 2020-05-25 Office [facility] 1.2.840.114 [id number] Univers 15:30:00 16:00:00 Visit Vickibekah Maggie 350.1.13.10 i ty of [place] [phone] [place] dical nal [address] [place] [address] 2020-05-25 2020-05-25 [facility] [id number] -[id number] Univers 15:30:00 15:30:[id number] [facility] 2020-05-25 2020-05-25 Outpatient R [facility] [id number] Univers 15:30:00 15:30:[address] [facility] 2020-04-20 2020-04-20 [facility] 1.2.101.449 [id number] Univers 00:00:00 00:00:00 Blake Pisanoton 350.1.13.10 i ty [place] [phone] Va dical nal 220 [facility] 2020-04-14 2020-04-14 Sales Agent Financial Report Service Lin, Adc Lab Main [facility] 1.2.8 40.114 [id number] Univers 12:10:22 12:25:22 Visit Vicki Jimenezbekah Serrano 350.1.13.10 ity of [place] [phone] Va dical [facility] 353 [facility] 2020-04-14 2020-04-14 [facility] 1.2.840.114 [id number] Univers 10:50:53 11:42:06 Visit Blake Pisan[place] 350.1.13.10 i ty of [place] 4[place]2.[place].2.[place] [phone] [place] dical [facility] 220 [facility] 2020-04-14 2020-04-14 Outpatient R [facility] [id number] -[id number] Univers 11:00:00 11:00:[address] [facility] 2020-04-14 2020-04-14 Outpatient R [facility] [id number] Univers 11:00:00 11:00:[address] [facility] 2020-04-13 2020-04-13 Outpatient UNKNOWN HCACL LABO [id number] [facility] 11:15:00 11:15:00 59 [facility] 2020-03-30 2020-03-30 Outpatient R [facility] [id number] Univers 15:00:00 15:00:[address] [facility] 2020-03-26 2020-03-26 [facility]phone [facility] 1.2.527.398 [id number] Univers 00:00:00 00:00:00 Blake P[place] 350.1.13.10 i ty of [place] [phone] Va dical nal 220 [facility] 2020-03-22 2020-03-22 Sales Agent Financial Report Service 2, Adc Lab [facility] 1.2.840.114 [id number] Univers 13:04:13 13:19:13 Visit Blake Jimenez Maggie 350.1.13.10 ity of [place].2.[place] [phone] Va dichi nal 353 [facility] 2020-03-22 2020-03-22 Outpatient [facility] [id number] -20 Univers 13:15:00 13:15:00 [id number] ity of [facility] 2020-03-22 2020-03-22 Outpatient R [facility] [id number] Univers 13:15:00 13:15:00 ity of [facility] 2020-03-22 2020-03-22 [facility]phone [facility] 1.2.742.137 [id number] Univers 00:00:00 00:00:00 Blake P[place] 350.1.13.10 i ty of [place] [phone] [facility] 2020-02-25 2020-02-25 [facility] [id number] -[id number] Univers 09:30:00 09:30:[id number] [facility] 2020-02-25 2020-02-25 Outpatient [facility] [id number] Univers 09:30:00 09:30:[address] [facility] 2020-02-25 2020-02-25 Tele[facility]ici [facility] 1.2.840.114 [id number] Univers 08:11:13 08:41:13 ne Visit Blake Serrano 350.1.13.10 ity of [place].2.[place] [phone] Va dical nal 220 [facility] 2020-01-09 2020-01-09 Telephone Jimenez, [facility] 1.2.123.764 [id number] Univers 00:00:00 00:00:00 Wentong [place] 350.1.13.10 i ty of [place].2.[place] [phone] Va dical nal 220 [facility] 2019-12-24 2019-12-24 Telephone Jimenez, [facility] 1.2.150.521 [id number] Univers 00:00:00 00:00:00 Wentong [place] 350.1.13.10 i ty of [place] 4[place]2.[place].2.[place] [phone] Va dichi nal 220 [facility] 2019-12-19 2019-12-19 Refill Jimenez, [facility] 1.2.840.114 [id number] Univers 00:00:00 00:00:00 Wentong [place] 350.1.13.10 i ty of [place] 4[place]2.7.2.[place] [phone] Va dichi nal 220 [facility] 2019-12-19 2019-12-19 Telephone Jimenez, [facility] 1.2.069.795 [id number] Univers 00:00:00 00:00:00 Wentong [place] 350.1.13.10 i ty of [place].2.[place] [phone] Va dical nal 220 [facility] 2019-12-16 2019-12-16 Telephone Jimenez, [facility] 1.2.183.934 [id number] Univers 00:00:00 00:00:00 Wentong [place] 350.1.13.10 i ty of [place].2.[place] [phone] Va dichi nal 220 [facility] 2019-12-11 2019-12-11 Outpatient AMBREEN_SANCHEZ [facility] 739 [place] 04:50:00 04:50:00 BINDU 0210 [facility] 2019-12-04 2019-12-04 Telephone Jimenez, [facility] 1.2.806.321 [id number] Univers 00:00:00 00:00:00 Wentong [place] 350.1.13.10 i ty of [place].2.[place] [phone] Me dical nal 220 [facility] 2019-11-27 2019-11-27 Sales Agent Financial Report Service 2, Adc Lab [facility] 1.2.840.114 [id number] Univers 13:10:41 13:25:41 Visit Blake Jimenez 350.1.13.10 ity of [place].2.[place] [phone] Va dical nal 353 [facility] 2019-11-27 2019-11-27 Orders Doctor GIA 1.2.840.114 [id number] Univers 00:00:00 00:00:00 Only Unassigned, DANYELL 350.1.13.10 ity of [facility] 4.2.7.2.686 Florentino as [phone] [address] 2019-04-17 2019-04-17 CRISTIANA [facility] [id number] [place] 11:00:00 11:00:00 t; KELLI, Trauma Jose CASTILLO P.Lg [facility] 2019-01-23 2019-01-23 CRISTIANA Quinn [facility] [id number] [place] 11:00:00 11:00:00 t; Jose PEREIRA P.ABenedict ans Mary Beth PEREIRA 2018-08-28 2018-08-28 CRISTIANA Ochoa [facility] [id number] [place] 12:45:00 12:45:00 t; LINDSEY ARREOLA Physi Janie Silverio M.D. 2018-08-14 2018-08-14 CRISTIANA Ochoa [facility] [id number] [place] 09:00:00 09:00:00 t; LINDSEY ARREOLA Physi ci ANDREW, M.D. ans M.D. 2018-08-07 2018-08-07 CRISTIANA Ochoa [facility] [id number] [place] 11:00:00 11:00:00 t; LINDSEY ARREOLA, [facility] 2018-07-31 2018-07-31 Appointmen TIGRE, [facility] [id number] 1 [place] 09:15:00 09:15:00 t; LOLLY LANDEROS P hysici DANIELLE, M.D. ans M.D. 2018-05-31 2018-05-31 Appointmen HÉCTOR, [facility] Orthopedics [id number] [place] 11:00:00 11:00:00 t; JANA ANAYA at [facility] Janie Brownlee M.D. [facility] 2018-05-29 2018-05-29 Appointmen TIGRE, [facility] [id number] 2 [place] 11:00:00 11:00:00 t; LOLLY LANDEROS P hysici DANIELLE, M.D. ans M.D. 2018-05-14 2018-05-14 Appointmen JONATHAN, [facility] [id number] [place] 09:30:00 09:30:00 t; Jose PEREIRA P.ABenedict PEREIRA, P.Lg 2018-05-03 2018-05-03 [facility] [id number] [place] 11:30:00 11:30:00 t; Jose PEREIRA P.ABenedict PEREIRA, P.ABenedict 2018-04-17 2018-04-17 Appointmen TIGRE, [facility] [id number] [place] 08:30:00 08:30:00 t; LOLLY LANDEROS P hysici DANIELLE, M.D. ans M.D. 2018-04-15 2018-04-15 Appointmen HÉCTOR, [facility] [id number] 2 [place] 14:45:00 14:45:00 t; JANA ANAYA Ortho and Delfino BATES M.D. Spine [facility] gomez [facility] 2018-03-04 2018-03-04 Appointmen MARCO, [facility] [id number] [place] 11:00:00 11:00:00 t; MIGUELINA LARA NP Phy sici TAMI, NP ans 2018-02-01 2018-02-01 Appointmen GUSTAVO, [facility] [id number] [place] 11:15:00 11:15:00 t; CJ CHEN PA Physici DENISE, PA ans 2017-12-14 2017-12-14 Appointmen GUSTAVO, UTP UTP [id number] 1 [place] 10:30:00 10:30:00 t; CJ CHEN PA Physici DENISE, PA ans 2017-11-28 2017-11-28 Appointmen ELBA, UTP UTP [id number] 1 [place] 14:00:00 14:00:00 t; LINDSEY ARREOLA Physi ci ANDREW, M.D. ans M.DBenedict 2017-06-20 2017-06-20 [facility], [facility] UTP [id number] [place] 09:30:00 09:30:00 t; LOLLY LANDEROS P hysici DANIELLE, M.D. ans M.DBenedict 2017-05-11 2017-05-11 Appointmen PRITCHETT, [facility] UTP [id number] [place] 09:00:00 09:00:00 t; IRENE PRITCHETT M.D. Physici BINH, M.D. ans 2017-04-24 2017-04-24 [facility] TIGRE, [facility] UTP [id number] 0 [place] 10:45:00 10:45:00 t; LOLLY LANDEROS P hysici DANIELLE, M.D. ans M.DBenedict 2017-04-04 2017-04-04 [facility] MARINO, [facility] UTP [id number] [place] 11:00:00 11:00:00 t; Carey RICHMOND M.D. ans GABRIELA, M.D. 2017-02-27 2017-02-27 Appointmen TIGRE, [facility] UTP [id number] 5 [place] 08:45:00 08:45:00 t; LOLLY LANDEROS P hysici DANIELLE, M.D. ans MTravis 2017-02-20 2017-02-20 Appointmen LANDEROS, UTP UTP [id number] [place] 09:00:00 09:00:00 t; LOLLY LANDEROS P hysici DANIELLE, M.D. ans MTravis 2017-02-13 2017-02-13 Appointmen LANDEROS, UTP UTP [id number] 2 [place] 08:45:00 08:45:00 t; LOLLY LANDEROS P hysici DANIELLE, M.D. ans MBenedictDBenedict 2016-12-27 2016-12-27 Appointmen ELBA, [facility] UTP [id number] [place] 12:45:00 12:45:00 t; LINDSEY ARREOLA, Physi ci Janie PORTILLO M.D. 2016-12-20 2016-12-20 Appointmen ELBA, UTP UTP [id number] [place] 10:45:00 10:45:00 t; LINDSEY ARREOLA, Physi ci Janie PORTILLO M.D. 2016-12-13 2016-12-13 Appointmen ELBA, UTP UTP [id number] 1 [place] 12:30:00 12:30:00 t; LINDSEY ARREOLA Physi ci Janie PORTILLO M.D. 2016-12-13 2016-12-13 Appointmen KATIE, CRISTIANA UTP [id number] 2 [place] 09:30:00 09:30:00 t; EMIR WILSON, Ph Janie Thompson M.D. 2016-11-29 2016-11-29 Appointmen CRISTIANA LARA UTP [id number] [place] 11:30:00 11:30:00 t; MIGUELINA LARA, PALMA Phy duane MCINTYRE NP ans 2016-11-28 2016-11-28 Appointmen CRISTIANA WEI [id number] [place] 15:00:00 15:00:00 t; TAMMI WEI M.D. Physici GRANT, ans M.D. 2012-12-05 2012-12-05 Outpatient [facility] [id number] Univers 00:00:00 10:18:00 7 [facility] 2012-11-28 2012-11-28 Outpatient [facility] [id number] Univers 00:00:00 00:00:00 [id number] [facility] 2012-08-01 2012-08-01 Outpatient [facility] [id number] Univers 00:00:00 11:48:00 7 [facility] 2012-07-26 2012-07-26 Outpatient [facility] [id number] Univers 00:00:00 00:00:00 [id number] [facility] 2012-05-07 2012-05-07 Outpatient [facility] [id number] -[id number] Univers 00:00:00 00:00:00 [id number] ity of [facility] 2012-05-02 2012-05-02 Outpatient [facility] [place] [id number] Univers 00:00:00 00:00:00 [id number] ity of [facility] 2012-04-26 2012-04-26 Outpatient [facility] [id number] Univers 00:00:00 11:47:00 3 ity of [facility] 2012-04-25 2012-04-25 [facility]patient [facility] [id number] -[id number] Univers 00:00:00 00:00:00 [id number] ity of [facility] 2012-04-22 2012-04-22 Outpatient [facility] [id number] -[id number] Univers 00:00:00 00:00:00 [id number] ity of [facility] 2012-03-26 2012-03-26 Outpatient [facility] [place] [id number] Univers 00:00:00 00:00:00 [id number] ity of [facility] 2012-02-19 2012-02-[address] [facility] [facility] [id number] -[id number] Univers 00:00:00 00:00:00 [id number] ity of [facility] 2011-11-23 2011-11-23 Outpatient [facility] [place] [id number] Univers 00:00:00 00:00:00 [id number] ity of [facility] 2011-11-21 2011-11-[address] [facility] [id number] Univers 00:00:00 14:02:00 6 ity of [facility] 2011-10-06 2011-10-06 Out[facility] [place] [id number] Univers 00:00:00 00:00:00 [id number] ity of [facility] 2011-08-24 2011-08-24 Outpatient [facility] [id number] Univers 00:00:00 00:00:00 [id number] ity of [facility] 2011-08-08 2011-08-08 Outpatient [facility] [place] [id number] Univers 00:00:00 14:46:00 6 ity of [facility] 2011-08-07 2011-08-07 Outpatient [facility] [place] [id number] Univers 00:00:00 00:00:00 [id number] ity of [facility] 2011-07-17 2011-07-17 Outpatient [facility] [id number] Univers 00:00:00 00:00:00 [id number] ity of [facility] 2011-06-08 2011-06-08 Outpatient [facility] [id number] Univers 00:00:00 16:31:00 2 ity of [facility] 2011-04-19 2011-04-19 Outpatient [facility] [id number] Univers 00:00:00 14:59:00 6 ity of [facility] 2011-03-27 2011-03-27 Outpatient [facility] [id number] Univers 00:00:00 00:00:00 [id number] ity of [facility] 2011-01-25 2011-01-25 Outpatient [facility] [id number] Univers 00:00:00 13:47:00 1 ity of [facility] 2011-01-25 2011-01-25 Outpatient [facility] [id number] Univers 00:00:00 00:00:00 [id number] ity of [facility] 2011-01-18 2011-01-[address] [facility] [id number] Univers 00:00:00 00:00:00 [id number] ity of [facility] 2010-07-29 2010-07-[address] [facility] [id number] Univers 00:00:00 00:00:00 [id number] ity of [facility] 2010-05-31 2010-05-[address] [facility] [id number] Univers 00:00:00 10:37:00 0 ity of [facility] 2010-05-24 2010-05-24 Outpatient [facility] [id number] Univers 00:00:00 00:00:00 [id number] ity of [facility] 2010-05-13 2010-05-13 Outpatient [facility] [id number] Univers 00:00:00 00:00:00 [id number] ity of [facility] 2010-05-12 2010-05-12 Outpatient [facility] [id number] Univers 00:00:00 00:00:00 [id number] ity of [facility] 2010-04-12 2010-04-12 [address] [facility] [id number] Univers 00:00:00 16:35:00 6 ity of [facility] 2010-04-07 2010-04-07 Outpatient [facility] [id number] Univers 00:00:00 00:00:00 [id number] ity of [facility] 2010-04-06 2010-04-06 Outpatient [facility] [id number] Univers 00:00:00 00:00:00 [id number] ity of [facility] 2010-03-31 2010-03-31 Outpatient [facility] [id number] Univers 00:00:00 12:04:00 6 ity of [facility] 2010-03-24 2010-03-24 Outpatient [facility] [id number] Univers 00:00:00 00:00:00 [id number] ity of [facility] 2010-03-03 2010-03-03 Outpatient [facility] [id number] Univers 00:00:00 09:58:00 3 ity of [facility] 2010-01-24 2010-01-[address] [facility] [id number] Univers 00:00:00 11:41:00 8 ity of [facility] 2009-11-25 2009-11-25 Outpatient [facility] [id number] Univers 00:00:00 11:16:00 0 ity of [facility] 2009-10-26 2009-10-26 Outpatient [facility] [id number] Univers 00:00:00 11:07:00 3 ity of [facility] 2009-10-12 2009-10-12 Outpatient [facility] [id number] Univers 00:00:00 00:00:00 [id number] ity of [facility] 2009-10-05 2009-10-05 Outpatient [facility] [id number] Univers 00:00:00 00:00:00 [id number] ity of [facility] 2009-09-20 2009-09-20 Outpatient [facility] [id number] [facility] 00:00:00 00:00:00 [id number] [facility] 2009-07-26 2009-07-26 [facility] [id number] [facility] 00:00:00 00:00:00 [id number] [facility] 2009-05-05 2009-05-05 Outpatient [facility] [id number] [facility] 00:00:00 00:00:00 [id number] [facility] 2009-04-28 2009-04-28 [facility] [id number] [facility] 00:00:00 00:00:00 [id number] [facility] 2009-04-22 2009-04-22 [facility] [id number] [facility] 00:00:00 00:00:00 [id number] [facility] 2009-04-19 2009-04-19 [facility] [id number] [facility] 00:00:00 00:00:00 [id number] [facility] 2009-01-25 2009-01-25 [facility] [id number] [facility] 00:00:00 13:04:00 6 [facility] 2009-01-20 2009-01-20 [facility] [id number] [facility] 00:00:00 14:25:00 4 [facility] 2008-09-15 2008-09-15 Outpatient [facility] [id number] [facility] 00:00:00 00:00:00 [id number] [facility] 2008-06-02 2008-06-02 Outpatient [facility] [id number] [facility] 00:00:00 16:42:00 0 [facility] 2008-04-17 2008-04-17 [facility] [id number] [facility] 00:00:00 00:00:00 [id number] [facility] 2008-04-01 2008-04-01 Outpatient [facility] [id number] [facility] 00:00:00 00:00:00 [id number] [facility] 2008-03-31 2008-03-31 [facility] [id number] [facility] 00:00:00 00:00:00 [id number] [facility] 2007-08-09 2007-08-09 Outpatient [facility] [id number] [facility] 00:00:00 00:00:00 [id number] [facility] 2007-07-22 2007-07-22 Outpatient [facility] [id number] [facility] 00:00:00 14:29:00 0 [facility] 2007-07-05 2007-07-05 Outpatient [facility] [id number] [facility] 00:00:00 00:00:00 [id number] [facility] 2007-06-11 2007-06-11 Outpatient [facility] [id number] [facility] 00:00:00 00:00:00 [id number] [facility] 2007-05-31 2007-05-31 Outpatient [facility] [id number] [facility] 00:00:00 00:00:00 [id number] [facility] 2007-05-07 2007-05-07 Outpatient [facility] [id number] [facility] 00:00:00 15:39:00 2 [facility] Results Test Description Test Time Test Comments Results Result Comments Source SARS-CoV-2 (COVID-19), RT-PCR/TMA 2021-11-27 15:43:57 Test Item Value Reference Range Interpretation Comme nts SARS-CoV-2 INTERPRETATION POSITIVE SEE NOTE A S ARS-CoV-2 RNA DETECTEDPositive (test code = 84037) results are indicative of the presence of CHELLE S-CoV-2 RNA;clinical co rrelation with patient history and other diagnosticinfor mation is necessary to de termine patient infection statu s.Positive results do not rule out bacterial infection or co -infectionwith other viruses. Positive and negative predic tive values oftesting are h ighly dependent on prevalence. SOURCE (test code = 16948) NASOPHARYNGEAL Note: Methodology is Soham Tyrone Real-Time RT-PC R. The expected result or refer ence range is NEGATIVE (Not D etected). For more information reg arding COVID-19 testing to incl ude clinicalinforma tion, methodology detail, intende d use, FDA authorization a ndrecommended fact sheets for serene ents or healthcare providers, see NewTest Announcement: S ARS-CoV-2 (COVID-19) by N AAT at URL below (note,fact shee ts are provided by method given in report:https:// www.[employer]/cl inicians/client -communications/ Alternatively, see downloadable PDF fact sheet at:https://www. [employer]/COVID- 19-RT-PCR UNLES S OTHERWISE INDICATED, ALL TESTING PERFORMED ATCLINICAL PATH OLOGY LABORATORIES, [facility]. [address], [place] [address] [employer] COACH: DENICE BENTON M.D. [place] NUMBER [id number] CAP ACCREDITATION N O. [id number] 10:33:00 Test Item Value Reference Range Interpretation Comments GLUBED (test code = GLUBED) 91 MG/DL 70-105 N Novel Coronavirus 2019 [id number] 20:31:00 Test Item Value Reference Range Interpretation Comments Novel Coronavirus 2019 Inhouse (test Negative Negative code = COVNONPUI) Testing Criteria: Preprocedure ScreeningNovel Coronavirus 2019 [id number] 20:31:00 Test Item Value Reference Range Interpretation Comments Novel Coronavirus 2019 Inhouse (test Negative Negative code = COVNONPUI) Testing Criteria: Preprocedure [id number] 11:15:00 Test Item Value Reference Range Interpretation Comments HEMOGLOBIN (test code = HGB) 16.8 g/dL 14.5-20 N [id number] 11:15:00 Test Item Value Reference Range Interpretation Comments HEMATOCRIT (test code = HCT) 52.1 % 42.0-52.0 H BLOOD [id number] 08:01:00 Test Item Value Reference Range Interpretation Comments CULTURE (BEAKER) (test No growth in 5 days code = 1095) BLOOD [id number] 08:01:00 Test Item Value Reference Range Interpretation Comments CULTURE (BEAKER) (test No growth in 5 days code = 1095) BASIC METABOLIC [id number] 06:08:00 Test Item Value Reference Range Interpretation [...] PATIEN TS. CBC W/PLT COUNT & AUTO [id number] 07:49:00 Test Item Value Reference Range Interpretation [...] Received comment: User comments: Slide comments:BASIC METABOLIC [id number] 05:04:00 Test Item Value Reference Range Interpretation [...] PATIEN TS. CBC W/PLT COUNT & AUTO [id number] 09:25:00 Test Item Value Reference Range Interpretation [...] WBC: SEGMENTED WITH TOXIC GRANULATIONS PRESENTBASIC METABOLIC [id number] 04:47:00 Test Item Value Reference Range Interpretation [...] DIALYSIS PATIEN TS. URINALYSIS W/ REFLEX URINE [id number] 12:15:00 Test Item Value Reference Range Interpretation [...] = 2795) CBC W/PLT COUNT & AUTO [id number] 08:39:00 Test Item Value Reference Range Interpretation [...] Received comment: User comments: Slide comments:BASIC METABOLIC [id number] 05:58:00 Test Item Value Reference Range Interpretation [...] DIALYSIS PATIEN TS. RAD, HIP, 2 VIEWS, [id number] 01:46:00Reason for exam:->total hip arthoplasty with persistent leukocytosisFINAL REPORT CLINICAL HISTORY: Leukocytosis COMPARISON: None. FINDINGS: 2 viewsof the right hip are submitted. The examination is limited by osteopenia, which can obscure a subtlebony abnormality, and by exclusion of the inferior [...] Signed: Sabra Snyder MDReport Verified Date/Time: 07/13/2019 01: 46:35 Reading Location: [address] Reading Room RAD, KNEE, 3 VIEWS, RIGHT 2019-07-13 01:45:00Reason for exam:->hardware with leukocytosisFINAL REPORT CLINICAL HISTORY: Leukocytosis COMPARISON: None. FINDINGS: 4 viewsof the right knee are submitted. The examination is limited by osteopenia, which can obscure a subtle bony abnormality. The patient has undergone previous total knee arthroplasty. There is no evidence of hardware loosening or failure. No periprosthetic fracture is present. There is no destructive bonylesion. A small suprapatellar effusion is present. Vascular calcifications are noted in the leg. There is no unexpected radiopaque foreign body or soft tissue gas. Please note that the radiographic appearance of osteomyelitis lags behind clinical onset. If of further clinical concern, three- phase bonescan, nuclear medicine white blood cell scan or MRI is recommended. Signed: Sabra Snyder MDReport Verified Date/Time: 07/13/2019 01:45:04 Reading Location: [address] Reading Room RAD, KNEE, 3 VIEWS, [id number] 01:43:00 Reason for exam:->leukocytosisFINAL REPORT CLINICAL HISTORY: Leukocytosis COMPARISON: None. FINDINGS: 4 viewsof the left knee are submitted. Diffuse osteopenia limits the examination. 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 There is a chronic appearing distal femoral fracture with lateral angulation of the distal fragment and knee joint prosthesis. Comparisonwith previous imaging would be helpful, if available [...] Signed: Sabra Snyder MDReport Verified Date/Time: 07/13/2019 01:43:49 Reading Location: [address] Reading Room RAD, CHEST, 1 VIEW, NON [id number] 01:42:00Reason for exam:->leukocytosisShould this be performed at [...] overlie the right upper quadrant. Signed: Sabra Snyderepcox branson Verified Date/Time: 07/13/2019 01:42:05 Reading Location: [address] Reading Room RAD, HIP, 2 VIEWS, [id number] 01:40:00Reason for exam:->total hip arthoplasty with persistent leukocytosisFINAL REPORT CLINICAL HISTORY: NARINDER with persistent leukocytosis COMPARISON: None . FINDINGS: 2 views of the left hip are submitted. There is diffuse osteopenia. The patient has undergone previous total hip arthroplasty. There is no acute fracture or malalignment. No destructive bony lesion is identified. There is no unexpected radiopaque foreign body. Vascular calcifications are noted in the pelvis and left leg. Signed: Sabra Snyder Verified Date/Time: 07/13/2019 01:40:58 Reading Location: [address] Reading Room CBC W/PLT COUNT & AUTO [id number] 10:58:00 Test Item Value Reference Range Interpretation [...] 3438) Received comment: User comments: Slide comments:BLOOD [id number] 08:01:00 Test Item Value Reference Range Interpretation Comments CULTURE (BEAKER) (test No growth in 5 days code = 1095) BLOOD [id number] 08:01:00 Test Item Value Reference Range Interpretation Comments CULTURE (BEAKER) (test No growth in 5 days code = 1095) BASIC METABOLIC [id number] 05:59:00 Test Item Value Reference Range Interpretation [...] PATIEN TS. CBC W/PLT COUNT & AUTO [id number] 11:34:00 Test Item Value Reference Range Interpretation [...] = 3438) Received comment: User comments: Slide comments:[id number] 06:55:00 Test Item Value Reference Range Interpretation Comments PROCALCITONIN (BEAKER) (test code 0.61 ng/mL <0.05 H = 3036) SEPSIS RISK (ng/mL)Low: 0.05-0.50Intermediate: 0.51-2.00High: >=2.01BASIC METABOLIC [id number] 06:43:00 Test Item Value Reference Range Interpretation [...] S NOT APPLICABLE FOR DIALYSIS PATIEN TS. [id number] 06:36:00 Test Item Value Reference Range Interpretation Comments MAGNESIUM (BEAKER) (test code = 2.0 mg/dL 1.6-2.6 627) [id number] 06:36:00 Test Item Value Reference Range Interpretation Comments ALBUMIN (BEAKER) (test code = 1145) 2.3 g/dL 3.5-5.0 L CALCIUM, [id number] 05:32:00 Test Item Value Reference Range Interpretation Comments CALCIUM IONIZED (BEAKER) (test 1.09 mmol/L 1.12-1.27 L code = 698) PH, BLOOD (BEAKER) (test code = 7.42 1810) [id number] 13:34:00 Test Item Value Reference Range Interpretation Comments POTASSIUM (BEAKER) (test code = 3.6 meq/L 3.5-5.1 379) HEMOGLOBIN AND [id number] 12:50:00 Test Item Value Reference Range Interpretation Comments HEMOGLOBIN (BEAKER) (test code = 9.1 GM/DL 13.7-17.5 L 410) HEMATOCRIT (BEAKER) (test code = 29.0 % 40.1-51.0 L 411) MRSA [id number] 11:38:00 Test Item Value Reference Range Interpretation Comments CULTURE (BEAKER) (test code No MRSA isolated = 1095) POCT-GLUCOSE [id number] 06:38:00 Test Item Value Reference Range Interpretation Comments POC-GLUCOSE METER 134 mg/dL 70-110 H TESTED AT [facility] [address] (BEAKER) (test code = [place] [address]) [address] BASIC METABOLIC [id number] 05:06:00 Test Item Value Reference Range Interpretation [...] S NOT APPLICABLE FOR DIALYSIS PATIEN TS. [id number] 05:02:00 Test Item Value Reference Range Interpretation Comments MAGNESIUM (BEAKER) (test code = 2.0 mg/dL 1.6-2.6 627) CBC W/PLT COUNT & AUTO [id number] 04:53:00 Test Item Value Reference Range Interpretation [...] PERCENT (BEAKER) (test code = 2801) POCT-GLUCOSE [id number] 00:09:00 Test Item Value Reference Range Interpretation Comments POC-GLUCOSE METER 181 mg/dL 70-110 H TESTED AT [facility] 67 (BEBANNER) [facility] 1538[facility] [address] POCT-GLUCOSE [id number] 19:24:00 Test Item Value Reference Range Interpretation Comments POC-GLUCOSE METER 121 mg/dL 70-110 H TESTED AT [facility] 67[address] ([facility]) (test code = [place] 15[address]) [address] LACTIC ACID, [id number] 16:46:00 Test Item Value Reference Range Interpretation Comments LACTATE BLOOD VENOUS (2) (BEAKER) 1.9 mmol/L 0.5-2.2 (test code = 2872) HEMOGLOBIN AND [id number] 16:36:00 Test Item Value Reference Range Interpretation Comments HEMOGLOBIN (BEAKER) (test code = 8.0 GM/DL 13.7-17.5 L 410) HEMATOCRIT (BEAKER) (test code = 24.5 % 40.1-51.0 L 411) CBC W/PLT COUNT & AUTO [id number] 16:02:00 Test Item Value Reference Range Interpretation [...] (BEAKER) (test code = 2801) BASIC METABOLIC [id number] 12:32:00 Test Item Value Reference Range Interpretation [...] NOT APPLICABLE FOR DIALYSIS PATIEN TS. POCT-GLUCOSE [id number] 12:08:00 Test Item Value Reference Range Interpretation Comments POC-GLUCOSE METER 175 mg/dL 70-110 H TESTED AT [facility] [address] (BEAKER) (test code = [place] [address]) [address] HEMOGLOBIN AND [id number] 12:07:00 Test Item Value Reference Range Interpretation Comments HEMOGLOBIN (BEAKER) (test code = 8.5 GM/DL 13.7-17.5 L 410) HEMATOCRIT (BEAKER) (test code = 26.4 % 40.1-51.0 L 411) [id number] 11:16:00 Test Item Value Reference Range Interpretation Comments MAGNESIUM (BEAKER) (test code = 2.3 mg/dL 1.6-2.6 627) BASIC METABOLIC [id number] 10:18:00 Test Item Value Reference Range Interpretation [...] APPLICABLE FOR DIALYSIS PATIEN TS. VANCOMYCIN LEVEL, [id number] 10:14:00 Test Item Value Reference Range Interpretation [...] (BEAKER) (test code = 413) HEMOGLOBIN AND [id number] 08:10:00 Test Item Value Reference Range Interpretation Comments HEMOGLOBIN (BEAKER) (test code = 7.9 GM/DL 13.7-17.5 L 410) HEMATOCRIT (BEAKER) (test code = 24.3 % 40.1-51.0 L 411) POCT-GLUCOSE [id number] 05:56:00 Test Item Value Reference Range Interpretation Comments POC-GLUCOSE METER 113 mg/dL 70-110 H TESTED AT [facility] [address] (BEAKER) (test code = [place] [address]) [address] BASIC METABOLIC [id number] 04:31:00 Test Item Value Reference Range Interpretation [...] S NOT APPLICABLE FOR DIALYSIS PATIEN TS. [id number] 04:21:00 Test Item Value Reference Range Interpretation Comments MAGNESIUM (BEAKER) (test code = 2.2 mg/dL 1.6-2.6 627) CBC W/PLT COUNT & AUTO [id number] 04:07:00 Test Item Value Reference Range Interpretation [...] PERCENT (BEAKER) (test code = 2801) CALCIUM, [id number] 04:00:00 Test Item Value Reference Range Interpretation Comments CALCIUM IONIZED (BEAKER) (test 1.04 mmol/L 1.12-1.27 L code = 698) PH, BLOOD (BEAKER) (test code = 7.40 1810) HEMOGLOBIN AND [id number] 00:26:00 Test Item Value Reference Range Interpretation Comments HEMOGLOBIN (BEAKER) (test code = 7.6 GM/DL 13.7-17.5 L 410) HEMATOCRIT (BEAKER) (test code = 23.0 % 40.1-51.0 L 411) POCT-GLUCOSE [id number] 00:20:00 Test Item Value Reference Range Interpretation Comments POC-GLUCOSE METER 117 mg/dL 70-110 H TESTED AT [facility] [address] (BEAKER) (test code = [place] [facility] 1538) [address] CT, [id number] 19:35:00FINAL REPORT TECHNIQUE: CT of the abdomen and pelvis WITH intravenous contrast and WITH oral contrast. Dose modulation, iterative reconstruction, and/or weight-based adjustment of the mA/kV was utilized to reduce the radiation dose to as low as reasonably achievable. INDICATION: Abdominal infection suspected. COMPARISON: None. FINDINGS: LOWER THORAX: Small bilateral pleural effusions. HEPATOBILIARY: There is a fluid attenuation structure which is inseparable from segment V and 3cm on axial image 30. This is most likely a cyst. No surrounding inflammation to suggest an abscess.Prior cholecystectomy. No biliary ductal dilatation.SPLEEN: No splenomegaly.PANCREAS: No focal masses or ductal dilatation. ADRENALS: No adrenal nodules.KIDNEYS/URETERS: No hydronephrosis or masses. Nonobstructing bilateral renal stones (at least three on the left and three on the right) measure up to0.5 cm. Right renal hypodensities are too small to characterize measure up to 0.7 cm. A right upper pole renal hypodensity measures 1.2 cm and could be artifactual as seen on axial image 24. PELVIC ORGANS/BLADDER: Unremarkable. PERITONEUM/RETROPERITONEUM: No free air or fluid. A right hemiabdominal hernia contains a loop of nonobstructed small bowel. [...] rib fractures. The bones are diffusely demineralized. There are greater than 50% compression deformities of the T12, L1, and L5 vertebral bodies. Less than 50% compression deformity of the L3 vertebral body. Diffuse anasarca. IMPRESSION: 1.Bilateral decubitus ulcers without definite underlying osteomyelitis. The gas in this location could be due to underlying infection from gas-forming bacteria. 2.The thickening of the scrotal skin may be due to infection or anasarca. 3.Small bilateral pleural effusions. 4.A small right hemiabdominal hernia contains a small bowel. There is minimal proximal short segment dilation without significant obstruction. Please evaluatefor reducibility. 5.Bilateral nonobstructing renal stones measure up to 0.5 cm. 6.There are several age- indeterminate vertebral compression fractures. These are likely old given the lack of surroundingedema. 7.A right upper pole 1.3 cm renal lesion is indeterminate and could be artifactual. Further evaluation with a CT of the abdomen with and without contrast, renal mass protocol, is recommended on a nonemergent basis. The findings concerning infection were discussed with Dr. Faye on 07/08/2019 at 7:21 PM. Signed: Gustabo Wyhte MDReport Verified Date/Time: 07/08/2019 19:35:04 Reading Location: [facility] C013Y CT Body Reading Room POCT-GLUCOSE [id number] 17:58:00 Test Item Value Reference Range Interpretation Comments POC-GLUCOSE METER 121 mg/dL 70-110 H TESTED AT [facility] 67[address] ([place]NER) (test code = [place] [facility] 1538) [address] HEMOGLOBIN AND [id number] 16:32:00 Test Item Value Reference Range Interpretation Comments HEMOGLOBIN (BEAKER) (test code = 7.5 GM/DL 13.7-17.5 L 410) HEMATOCRIT (BEAKER) (test code = 22.9 % 40.1-51.0 L 411) POCT-GLUCOSE [id number] 12:03:00 Test Item Value Reference Range Interpretation Comments POC-GLUCOSE METER 93 mg/dL 70-110 TESTED AT [facility] 67[address] ([place]NER) (test code = [place] [facility] [address]) BASIC METABOLIC [id number] 10:27:00 Test Item Value Reference Range Interpretation [...] S NOT APPLICABLE FOR DIALYSIS PATIEN TS. [id number] 10:16:00 Test Item Value Reference Range Interpretation Comments MAGNESIUM (BEAKER) (test code = 1.4 mg/dL 1.6-2.6 L 627) CALCIUM, [id number] 09:50:00 Test Item Value Reference Range Interpretation Comments CALCIUM IONIZED (BEAKER) (test 1.06 mmol/L 1.12-1.27 L code = 698) PH, BLOOD (BEAKER) (test code = 7.47 1810) CBC W/PLT COUNT & AUTO [id number] 09:11:00 Test Item Value Reference Range Interpretation [...] 3438) Received comment: User comments: Slide comments:POCT-GLUCOSE [id number] 06:28:00 Test Item Value Reference Range Interpretation Comments POC-GLUCOSE METER 108 mg/dL 70-110 TESTED AT [facility] [address] (BEAKER) (test code = [place] [facility] 1538) [address] POCT-GLUCOSE [id number] 05:09:00 Test Item Value Reference Range Interpretation Comments POC-GLUCOSE METER 82 mg/dL 70-110 TESTED AT [facility] 67[address] (BEAKER) (test code = [place] [facility] [address]) [id number] 04:07:00 Test Item Value Reference Range Interpretation Comments FERRITIN (BEAKER) (test code = 361) 154 ng/mL 5-275 BASIC METABOLIC [id number] 03:53:00 Test Item Value Reference Range Interpretation [...] APPLICABLE FOR DIALYSIS PATIEN TS. HEPATIC FUNCTION [id number] 03:51:00 Test Item Value Reference Range Interpretation [...] = 9 U/L 6-55 347) LACTIC ACID, [id number] 03:48:00 Test Item Value Reference Range Interpretation Comments LACTATE BLOOD ARTERIAL (2) 0.8 mmol/L 0.5-2.2 (BEAKER) (test code = 2874) PROTHROMBIN [id number] 03:43:00 Test Item Value Reference Range Interpretation Comments PROTIME (BEAKER) (test code = 16.4 seconds 11.9-14.2 H 759) INR (BEAKER) (test code = 370) 1.4 <=5.9 Effective 04/02/2019: PT Reference Range ChangeNew: 11.9-14.2 Previous: 11.7- 14.7RECOMMENDED COUMADIN/WARFARIN INR THERAPY RANGESSTANDARD DOSE: 2.0-3.0 Includes: PROPHYLAXIS for venous thrombosis, systemic embolization; TREATMENT for venous thrombosis and/or pulmonary embolus.HIGH RISK: Target INR is 2.5-3.5 for patients wiht mechanical heart valves.HEMOGLOBIN AND [id number] 03:32:00 Test Item Value Reference Range Interpretation Comments HEMOGLOBIN (BEAKER) (test code = 8.1 GM/DL 13.7-17.5 L 410) HEMATOCRIT (BEAKER) (test code = 24.3 % 40.1-51.0 L 411) HEMOGLOBIN AND [id number] 22:53:00 Test Item Value Reference Range Interpretation Comments HEMOGLOBIN (BEAKER) (test code = 7.9 GM/DL 13.7-17.5 L 410) HEMATOCRIT (BEAKER) (test code = 23.8 % 40.1-51.0 L 411) [id number] 19:45:00 Test Item Value Reference Range Interpretation [...] thrombosis and/or pulmonary embolus.HIGH RISK: Target INR is 2.5-3.5 for patients wiht mechanical heart valves.POCT-GLUCOSE [id number] 19:33:00 Test Item Value Reference Range Interpretation Comments POC-GLUCOSE METER 101 mg/dL 70-110 TESTED AT [facility] [address] (BEAKER) (test code = [place] [address]) [address] CALCIUM, [id number] 18:17:00 Test Item Value Reference Range Interpretation Comments CALCIUM IONIZED (BEAKER) (test 1.08 mmol/L 1.12-1.27 L code = 698) PH, BLOOD (BEAKER) (test code = 7.37 1810) BLOOD GAS, [id number] 18:15:00 Test Item Value Reference Range Interpretation [...] (test code = 1819) 100.0 % POTASSIUM-STAT [id number] 18:15:00 Test Item Value Reference Range Interpretation Comments POTASSIUM (BEAKER) (test code = 3.3 meq/L 3.6-5.5 L 379) GLUCOSE-STAT [id number] 18:15:00 Test Item Value Reference Range Interpretation Comments GLUCOSE RANDOM (BEAKER) (test code 138 mg/dL 70-110 H = 652) HGB/HCT (H&H) - STAT [id number] 18:15:00 Test Item Value Reference Range Interpretation Comments HEMOGLOBIN (BEAKER) (test code = 8.7 g/dL 13.0-16.8 L 410) HEMATOCRIT (BEAKER) (test code = 26.0 % 40.0-50.0 L 411) SODIUM NA-STAT [id number] 18:13:00 Test Item Value Reference Range Interpretation Comments SODIUM (BEAKER) (test code = 381) 137 meq/L 135-148 LACTIC ACID, [id number] 16:40:00 Test Item Value Reference Range Interpretation Comments LACTATE BLOOD ARTERIAL (2) 1.4 mmol/L 0.5-2.2 (BEAKER) (test code = 2874) HEMOGLOBIN AND [id number] 16:24:00 Test Item Value Reference Range Interpretation Comments HEMOGLOBIN (BEAKER) (test code = 7.5 GM/DL 13.7-17.5 L 410) HEMATOCRIT (BEAKER) (test code = 22.6 % 40.1-51.0 L 411) HGB/HCT (H&H) - STAT [id number] 15:47:00 Test Item Value Reference Range Interpretation Comments HEMOGLOBIN (BEAKER) (test code = 9.1 g/dL 13.0-16.8 L 410) HEMATOCRIT (BEAKER) (test code = 27.0 % 40.0-50.0 L 411) BLOOD GAS, [id number] 12:36:00 Test Item Value Reference Range Interpretation [...] (BEAKER) (test code = 1819) 21.0 % [id number] 12:32:00 Test Item Value Reference Range Interpretation Comments MAGNESIUM (BEAKER) 1.7 mg/dL 1.6-2.6 Specimen slightly (test code = 627) hemolyzed POTASSIUM-STAT [id number] 12:31:00 Test Item Value Reference Range Interpretation Comments POTASSIUM (BEAKER) (test code = 3.2 meq/L 3.6-5.5 L 379) HGB/HCT (H&H) - STAT [id number] 12:31:00 Test Item Value Reference Range Interpretation Comments HEMOGLOBIN (BEAKER) (test code = 9.7 g/dL 13.0-16.8 L 410) HEMATOCRIT (BEAKER) (test code = 29.0 % 40.0-50.0 L 411) GLUCOSE-STAT [id number] 12:29:00 Test Item Value Reference Range Interpretation Comments GLUCOSE RANDOM (BEAKER) (test code 100 mg/dL 70-110 = 652) SODIUM NA-STAT [id number] 12:29:00 Test Item Value Reference Range Interpretation Comments SODIUM (BEAKER) (test code = 381) 136 meq/L 135-148 POCT-GLUCOSE [id number] 11:50:00 Test Item Value Reference Range Interpretation Comments POC-GLUCOSE METER 88 mg/dL 70-110 TESTED AT [facility] 6720 (BEAKER) (test code = [place] [address] 1538) BASIC METABOLIC [id number] 09:48:00 Test Item Value Reference Range Interpretation [...] PATIEN TS. CBC W/PLT COUNT & AUTO [id number] 09:44:00 Test Item Value Reference Range Interpretation [...] after transfusion completedUser comments: Slide comments:HEPATIC FUNCTION [id number] 07:43:00 Test Item Value Reference Range Interpretation [...] code = 11 U/L 6-55 347) PROTHROMBIN [id number] 07:33:00 Test Item Value Reference Range Interpretation Comments PROTIME (BEAKER) (test code = 14.3 seconds 11.9-14.2 H 759) INR (BEAKER) (test code = 370) 1.2 <=5.9 Effective 04/02/2019: PT Reference Range ChangeNew: 11.9-14.2 Previous: 11.7- 14.7RECOMMENDED COUMADIN/WARFARIN INR THERAPY RANGESSTANDARD DOSE: 2.0-3.0 Includes: PROPHYLAXIS for venous thrombosis, systemic embolization; TREATMENT for venous thrombosis and/or pulmonary embolus.HIGH RISK: Target INR is 2.5-3.5 for patients wiht mechanical heart valves.VITAMIN B12 AND [id number] 07:27:00 Test Item Value Reference Range Interpretation Comments VITAMIN B12 (BEAKER) (test code = 290 pg/mL 213-816 774) FOLATE (BEAKER) (test code = 362) 11.1 ng/mL >=7.0 POCT-GLUCOSE [id number] 06:09:00 Test Item Value Reference Range Interpretation Comments POC-GLUCOSE METER 89 mg/dL 70-110 TESTED AT [facility] 6720 (BEAKER) (test code = [place] [address] 1538) RAD, CHEST, 1 VIEW, NON [id number] 04:21:00Reason for exam:- >leucocytosisShould this be performed at the bedside?->YesFINAL REPORT RAD, CHEST, 1 VIEW, NON DEPT INDICATION: leucocytosis COMPARISON: September 24, 2010 FINDINGS: Portable frontal view of the chest. IMPRESSION: Left lung base opacitiesblunted costophrenic angle, likely scarring or atelectasis as there are similar prior exam. No pneumothorax or significant pleural effusion. No focal lung consolidation. The cardiomediastinal silhouette is within normal limits. Right total shoulder arthroplasty. Degenerative changes of the spine and left shoulder. Signed: Yevgeniy Ellis MDReport Verified Date/Time: 07/07/2019 04:21:36 Electronicallysigned by: YEVGENIY ELLIS MD on 07/07/2019 04:21 AMIRON, TIBC, % SAT. (WITHOUT FERRITIN)2019-07-07 01:55:00 Test Item Value Reference Range Interpretation Comments IRON (BEAKER) (test code = 547) 72.0 ug/dL 40.0-160.0 TOTAL IRON BINDING CAPACITY 94 ug/dL 250-450 L (BEAKER) (test code = 769) IRON % SATURATION (2) (BEAKER) 77 % 20-55 H (test code = 2590) URINALYSIS WITH MICROSCOPIC IF [id number] 01:48:00 Test Item Value Reference Range Interpretation [...] = 463) SOURCE(BEAKER) (test code = 2795) [id number] 01:24:00 Test Item Value Reference Range Interpretation Comments POC-HEMOGLOBIN 5.4 g/dL 13.0-16.8 LL TESTED AT [place] [address] (BEAKER) (test code = WILLEM [place] [address]) [address]UBP[facility] AT [place] [address] [address] [place] [address] POCT-BLOOD GASES, [id number] 01:23:00 Test Item Value Reference Range Interpretation Comments TEMP, CELSIUS-POC 36.1 (BEAKER) (test code = 1834) FIO2-POC (BEAKER) 21 TESTED AT [place] [address] (test code = 1835) [facility] [address] PH, VENOUS-POC 7.392 7.320-7.420 (BEAKER) (test code [...] -2.0-3.0 VENOUS-POC (BEAKER) (test code = 1847) [id number] 01:23:00 Test Item Value Reference Range Interpretation Comments POC-SODIUM (BEAKER) 141 meq/L 135-148 TESTED A T [place] [address] (test code = 1542) [place] [address] [id number] 01:23:00 Test Item Value Reference Range Interpretation Comments POC-POTASSIUM 3.1 meq/L 3.6-5.5 L TESTED AT [place] [address] (BEAKER) (test code [facility] [address] = 1540) [id number] 01:23:00 Test Item Value Reference Range Interpretation Comments POC-GLUCOSE (BEAKER) 100 mg/dL 70-110 TESTED AT [place] [address] (test code = 1855) [place] [address] POCT-CALCIUM [id number] 01:23:00 Test Item Value Reference Range Interpretation Comments POC-CALCIUM IONIZED 1.13 mmol/L 1.12-1.27 TESTED A T [place] [address] (BEBANNER) (test code = WILLEM [place] [address]) [address] [id number] 01:23:00 Test Item Value Reference Range Interpretation Comments POC-HEMATOCRIT 16 % 40-50 L TESTED AT [place] [address] ([facility]) (test code = WILLEM Hubbard [facility] [address]) C-REACTIVE [id number] 01:07:00 Test Item Value Reference Range Interpretation Comments C-REACTIVE PROTEIN ([facility]) (test 7.02 mg/dL 0.00-0.50 H code = 676) LACTIC ACID, [id number] 01:05:00 Test Item Value Reference Range Interpretation Comments LACTATE BLOOD VENOUS (2) ([facility]) 1.4 mmol/L 0.5-2.2 (test code = 2872) POCT-GLUCOSE [id number] 01:02:00 Test Item Value Reference Range Interpretation Comments POC-GLUCOSE METER 125 mg/dL 70-110 H TESTED AT [place] [address] ([facility]) (test code = CANDIDOIA Stevie [facility] 1538) [address] POCT-GLUCOSE [id number] 23:36:00 Test Item Value Reference Range Interpretation Comments POC-GLUCOSE METER 189 mg/dL 70-110 H TESTED AT [place] [address] ([facility]) (test code = [facility] Stevie [facility] 1538) [address] (CELLAVISION MANUAL DIFF)2019-07-06 21:36:00 Test Item Value [...] Received comment: User comments: Slide comments:BASIC METABOLIC [id number] 21:31:00 Test Item Value Reference Range Interpretation [...] PATIEN TS. CBC W/PLT COUNT & AUTO [id number] 21:27:00 Test Item Value Reference Range Interpretation [...] (BEAKER) (test code = 413) HEPATIC FUNCTION [id number] 21:26:00 Test Item Value Reference Range Interpretation [...] code = 11 U/L 6-55 347) PROTHROMBIN [id number] 21:18:00 Test Item Value Reference Range Interpretation Comments PROTIME (BEAKER) (test code = 14.2 seconds 11.9-14.2 759) INR (BEAKER) (test code = 370) 1.2 <=5.9 Effective 04/02/2019: PT Reference Range ChangeNew: 11.9-14.2 Previous: 11.7- 14.7RECOMMENDED COUMADIN/WARFARIN INR THERAPY RANGESSTANDARD DOSE: 2.0-3.0 Includes: PROPHYLAXIS for venous thrombosis, systemic embolization; TREATMENT for venous thrombosis and/or pulmonary embolus.HIGH RISK: Target INR is 2.5-3.5 for patients wiht mechanical heart valves.[QL] CMP [id number] 13:50:01 Test Item Value Reference Range Interpretation Comments Sodium Level 138 {mEq/l} 135-145 (test code = 2951-2) Potassium Level 3.7 {mEq/l} 3.5-5.1 (test code = 2823-3) Chloride Level 103 {mEq/l} 95-109 (test code = 5-0) Carbon Dioxide 27 {mEq/l} 24-32 (test code = 2027-9) AGAP (test code = 11.7 {mEq/l} 10.0-20.0 89752-0) Glucose Lvl; 53 mg/dl 70-99 Adult reference range Below Low values reflect the Threshold (test clinical nate delinesof the code = 2345-7) [employer]. Creatinine Lvl 0.70 mg/dl [...] g/dl 2.7-4.2 High Threshold (test code = 10054-5) A/G Ratio; Below 0.6 0.7-1.6 Low Threshold (test code = 1759-0) Calcium Level 8.7 mg/dl 8.5-10.5 Total (test code = 03678-3) ALT (test code = 35 u/l 0-65 1743-4) AST (test code = 16 u/l 0-37 25495-7) Alk Phos (test 117 u/l 39-136 code = 1783-0) Bili Total (test 0.5 mg/dl 0.2-1.3 code = 1975-2) eGFR (test code = 108 The eGFR i s calculated 52867-4) {ML/MIN/1.7} using the CKD-E PI formula. In [...] be multiplied by t he estimated BMI. [facility][QL] [id number] 13:50:01 Test Item Value Reference Range Interpretation Comments Magnesium Level (test code = 2.2 mg/dl 1.8-2.4 89399-6) [facility][QL] PHOSPHATE ( PHOSPHORUS)2019-04-17 13:50:01 Test Item Value Reference Range Interpretation Comments Phosphorus Level; Below Low 2.2 mg/dl 2.5-4.5 Threshold (test code = 2777-1) [facility][QL] TSH, 3RD GENERATION W/REFLEX TO [id number] 13:50:01 Test Item Value Reference Range Interpretation Comments TSH (test code = 93506-5) 0.993 {uIU/ml} 0.360-3.740 [facility][QL] PTH, INTACT (WITHOUT CALCIUM)2019-04-17 13:50:01 Test Item Value Reference Range Interpretation Comments Parathyroid Hormone Intact; Above 85.6 pg/ml 18.4-80.1 High Threshold (test code = 2731-8) [facility][QLH] VITAMIN D, 25-HYDROXY, LC/[id number] 13:50:01 Test Item Value Reference Range Interpretation Comments Vitamin D, 25-OH, 25.5 ng/ml 30.0-100.0 Reference range is based Total (test code on recommen dations in the = Vitamin D, EndocrineSociet y Clinical 25-OH, Total) Practice Guide line (J Clin Endocrinol Qngyg5633;96:19 11-1930) [facility][H] Procollagen Type I Intact N Terminal [id number] 13:50:01 Test Item Value Reference Range Interpretation Comments Procollagen Type I 52 {UG/L} 22-87 Performed At: [facility] Intact N Terminal Pro [facility] (test code = [address] [place] Procollagen Type I [place], [place] Intact N Terminal Pro) [address] 3361Namattie Mejia MD Ph:[phone] [facility][QH] [id number] 13:35:01 Test Item Value Reference Range Interpretation Comments Calcium Level Total Cancel Reason: System (test code = 90589-3) Cancel [facility][H] Misc [id number] 13:35:01 Test Item Value Reference Range Interpretation Comments Misc [facility] (test COMMENT Test Orde red: 986263 code = Misc [facility]) C-Telop eptide, SerumC-Telopept villa, Serum 491 pg/mL ESRef erence Range:38 - 724P erformed At: HD [facility] [address] [place], [place] [id number] Kyle L MD Ph:[phone] rformed At: ES [facility] [address] [place], [place] [id number] ashley Hansen MD Ph:[phone] [facility][U] XRAY KNEE 4 OR MORE VWS BILATERAL [id number] 14:38:00 Images acquired, not reported on this accession number.[facility]
--- NOTE | 2022-07-26 11:39 | RAD REPORT ---
EXAM DESCRIPTION: Spring Single View07/26/2022 11:26 am CLINICAL HISTORY: Cough COMPARISON: April 2022 FINDINGS: The lungs appear clear of acute infiltrate. The heart is mildly enlarged IMPRESSION: No acute abnormalities displayed
--- NOTE | 2022-07-26 13:14 | ER ---
Nurse's Notes [facility] Name: Nabor Barrow Jr Age: 57 yrs Sex: Male : 1965 Arrival Date: 07/26/2022 Time: 10:23 Bed DIS1 Private MD: Richard Grimm Diagnosis: Acute pharyngitis, unspecified Presentation: 07/26 10:50 Chief complaint: Patient states: I started feeling headache and fatigue and coughing up iw phlegm and I fell sinus pressure , also has sore throat. Coronavirus screen: Client presents with at least one sign or symptom that may indicate coronavirus-19. Ebola Screen: Patient negative for fever greater than or equal to 101.5 degrees Fahrenheit, and additional compatible Ebola Virus Disease symptoms Patient denies exposure to infectious person. Patient denies travel to an Ebola-affected area in the 21 days before illness onset. No symptoms or risks identified at this time. Initial Sepsis Screen: Does the patient meet any 2 criteria? No. Patient's initial sepsis screen is negative. Does the patient have a suspected source of infection? No. Patient's initial sepsis screen is negative. Risk Assessment: Do you want to hurt yourself or someone else? Patient reports no desire to harm self or others. 10:50 Method Of Arrival: Wheelchair iw 10:50 Acuity: INNA 3 iw 13:35 Onset of symptoms was July 26, 2022. ld1 Historical: - Allergies: 10:50 Aspirin; iw 10:50 azathioprine sodium; iw 10:50 Imuran; iw 10:50 Lyrica; iw 10:50 NSAIDS (Non-Steroidal Anti-Inflamma; iw - PMHx: 10:50 Arthritis; psoriatic arthirits; Kidney stones; Hypertension; Chronic pain; stroke 2009; iw - Immunization history:: Adult Immunizations up to date. - Social history:: Smoking status: Patient denies any tobacco usage or history of. Patient/guardian denies using alcohol. Screenin:53 Abuse screen: Denies threats or abuse. Denies injuries from another. Nutritional iw screening: No deficits noted. Tuberculosis screening: No symptoms or risk factors identified. Fall Risk None identified. Assessment: 10:52 General: Appears in no apparent distress. Behavior is calm, cooperative. Pain: iw Complains of pain in head. Neuro: Level of Consciousness is awake, alert, obeys commands. Respiratory: Reports cough that is Airway is patent. Vital Signs: 10:50 BP 131 / 87; Pulse 99; Resp 18; Temp 97.9; Pulse Ox 96% on R/A; ED Course: 10:23 Patient arrived in ED. am2 10:23 Richard Grimm MD is Private Physician. am2 10:24 [facility] 10:24 Eric Barcenas MD is Attending Physician. [facility] 10:51 Triage completed. iw 10:51 Arm band placed on. iw 10:52 Verna Santamaria, RN is Primary Nurse. iw 13:35 No provider procedures requiring assistance completed. Patient did not have IV access ld1 during this emergency room visit. 13:36 Patient has correct armband on for positive identification. Call light in reach. Side ld1 rails up X 1. Pulse ox on. NIBP on. Door closed. Noise minimized. Warm blanket given. Administered Medications: No medications were administered Medication: 13:36 VIS not applicable for this client. ld1 Outcome: 13:14 Discharge ordered by . [facility] 13:35 Discharged to home via wheelchair, with family. ld1 13:35 Condition: stable 13:35 Instructed on discharge instructions, follow up and referral plans. medication usage, Demonstrated understanding of instructions, follow-up care, medications, Prescriptions given X 1. 13:36 Patient left the ED. ld1 Signatures: Sumit Linares PA PA jmm Williams, Irene, RN [facility] Suri Angel RN RN ld1
--- NOTE | 2022-07-26 13:14 | EDPHYS ---
Physician Documentation [facility] Name: Nabor Barrow Jr Age: 57 yrs Sex: Male : 1965 Arrival Date: 07/26/2022 Time: 10:23 Bed DIS1 Private MD: Richard Grimm ED Physician Eric Barcenas HPI: 07/26 10:35 This 57 yrs old Male presents to ER via Wheelchair with complaints of Cold jmm Symptoms. 10:35 Onset: The symptoms/episode began/occurred gradually. Modifying factors: The symptoms jmm are alleviated by nothing, the symptoms are aggravated by nothing. Associated signs and symptoms: Pertinent positives: sore throat. The patient has experienced similar episodes in the past. Historical: - Allergies: 10:50 Aspirin; iw 10:50 azathioprine sodium; iw 10:50 Imuran; iw 10:50 Lyrica; iw 10:50 NSAIDS (Non-Steroidal Anti-Inflamma; iw - PMHx: 10:50 Arthritis; psoriatic arthirits; Kidney stones; Hypertension; Chronic pain; stroke 2009; iw - Immunization history:: Adult Immunizations up to date. - Social history:: Smoking status: Patient denies any tobacco usage or history of. Patient/guardian denies using alcohol. ROS: 10:35 Constitutional: Positive for body aches, chills. jmm 10:35 ENT: Positive for sore throat. 10:35 Respiratory: Positive for cough. 10:35 All other systems are negative. Exam: 10:35 Constitutional: This is a well developed, well nourished patient who is awake, alert, jmm and in no acute distress. Head/Face: atraumatic. Eyes: EOMI, no conjunctival erythema appreciated ENT: Moist Mucus Membranes Neck: Trachea midline, Supple Chest/axilla: Normal chest wall appearance and motion. Cardiovascular: Regular rate and rhythm. No edema appreciated Respiratory: Normal respirations, no respiratory distress appreciated Abdomen/GI: Non distended Back: Normal ROM Skin: General appearance color normal MS/ Extremity: Moves all extremities, no obvious deformities appreciated, no edema noted to the lower extremities Neuro: Awake and alert Psych: Behavior is normal, Mood is normal, Patient is cooperative and pleasant Vital Signs: 10:50 BP 131 / 87; Pulse 99; Resp 18; Temp 97.9; Pulse Ox 96% on R/A; iw MDM: 10:52 Patient medically screened. [facility] 13:14 Data reviewed: vital signs, nurses notes. Counseling: I had a detailed discussion with ruddy the patient and/or guardian regarding: the historical points, exam findings, and any diagnostic results supporting the discharge/admit diagnosis, the need for outpatient follow up, to return to the emergency department if symptoms worsen or persist or if there are any questions or concerns that arise at home. 07/26 10:35 Order name: SARS-COV-2 RT PCR (Document "Date of Onset" if Symptomatic) [facility] 07/26 10:35 Order name: Influenza Screen (a \\T\\ B) [facility] 07/26 10:35 Order name: Strep [facility] 07/26 11:50 Order name: Influenza Screen (A ; Complete Time: 11:57 [facility] 07/26 11:50 Order name: Group A Streptococcus Rapid Sc; Complete Time: 11:57 [facility] 07/26 11:57 Order name: SARS-COV-2 RT PCR; Complete Time: 11:57 [facility] 07/26 10:53 Order name: Chest Single View XRAY [facility] 07/26 11:39 Order name: RAD; Complete Time: 11:42 [facility] 07/26 13:13 Order name: Throat Culture [facility] Administered Medications: No medications were administered Disposition Summary: 07/26/22 13:14 Discharge Ordered Location: Home [facility] Condition: Stable [facility] Diagnosis - Acute pharyngitis, unspecified [facility] Followup: [facility] - With: Private Physician - When: 2 - 3 days - Reason: Recheck today's complaints, Continuance of care, Re-evaluation by your physician Discharge Instructions: - Discharge Summary Sheet [facility] - Pharyngitis [facility] Forms: - Medication Reconciliation Form [facility] - Thank You Letter [facility] - Antibiotic Education [facility] - Prescription Opioid Use [facility] Prescriptions: - Zithromax Z-Zev 250 mg Oral Tablet - take 1 tablet by ORAL route as directed for 5 days Day 1 - take two (2) tablets [facility] one time. Day 2, 3, 4 , 5 take one (1) tablet once daily.; 6 tablet; Refills: 0, Product Selection Permitted Signatures: Dispatcher [employer] EDMS Sumit Linares PA PA Verna Grimm RN RN iw Dibbern, Suri, RN RN ld1
[2022-07-27 18:56] VITALS: BP 131/87; TEMP 97.9; O2SAT 96
== END 2022-07-26 13:36 | disposition home or self-care (01) ==
LOC: ER 10:22
DX: J02.9 Acute pharyngitis, unspecified (principal); Z20.822 Contact with and (suspected) exposure to COVID-19
CPT/HCPCS: 87070; 87081; 87804 ×2; 71045; U0003

== ENCOUNTER 2022-09-22 13:47 | Emergency (ER) | payer OTHER ==
--- OUTSIDE RECORDS SUMMARY | 2022-09-22 13:55 | XMS REPORT | Continuity of Care Document ---
:1965 Author Organization [facility] t Address [address] [place] [address] Care Team Providers Name Role Phone Dexter Bravo Ace Primary Care Physician [phone] LINDSEY ARREOLA Attending Clinician Unavailable LOLLY LANDEROS Attending Clinician Unavailable Diana Spears Attending Clinician Unavailable ELIAN LARA Attending Clinician Unavailable AMBJUAN ANTONIO_CORRINE Attending Clinician Unavailable BLAKE JIMENEZ Attending Clinician Unavailable Doctor Unassigned, [place] Attending Clinician Unavailable Blake Jimenez MD Attending Clinician AILYN PRICE Attending Clinician Unavailable Lab, Adc Fam Pob [...] Unavailable YI PICHARDO M.D. Attending Clinician Unavailable EMIR WILSON M.D. Attending Clinician Unavailable TAMMI WEI M.D. Attending Clinician Unavailable AMBREEN_FARJOSELOA Admitting Clinician Unavailable NALDO CLEMENT Admitting Clinician Unavailable Payers Payer Name Policy Type Policy Number Effective Date Expiration Date S gale [facility] COMMUNITY PLAN [id number] 2020 2020 MEDICARE SNP 00:00:00 00:00:00 [employer] STAR [id number] 2014 PLUS 00:00:00 [employer] [place] - [id number] 2014 STAR PLUS MMP - 00:00:00 DUAL ELIGIBLE (MEDICARE - MEDICAID REPLACEMENT HMO) [facility] DUAL [id number] 2021 COMP HMO D SNP 00:00:00 Problems Condition Condition Condition Status Onset Resolution Last Treating Co mments Source Name Details Category Date Date Treatment Clinician Date 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 07-16 [facility] 00:00: Medical 00 Center 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 Disease Active [facility] systemic systemic 07-16 Lu steroid steroid 00:00: Medical user user 00 Center Leukocytos Leukocytos Disease Active [facility] Noninfecte Noninfecte Disease Active U miguelinaers d skin d skin 9-16 ity of tear of tear of 00:00: [place] leg, leg, 00 Medical right, right, Branch initial initial encounter encounter Right leg Right leg Disease Active Uni vers pain pain 8-10 ity of 00:00: [place] 00 Medical Branch Skin ulcer Skin ulcer Disease Active U miguelinaers 4-30 ity of 00:00: [place] 00 Medical Branch Therapeuti Therapeuti Disease Active U meri c drug c drug 1-17 ity of monitoring monitoring [place] Rash, skin Rash, skin Disease Active 2010-11 U nivers 0-04 ity of 00:00: [place] 00 Medical Branch Vitamin D Vitamin D Disease Active Uni vers deficiency deficiency 8-16 it y of disease disease 00:00: [place] [facility] Bilateral Bilateral Disease Active Uni vers flank pain flank pain 5-27 it y of 00:00: [place] 00 Medical Branch Tinea Tinea Disease Active Univers corporis corporis 4-29 ity of 00:00: [place] [facility] Pathologic Pathologic Disease Active U nivers fracture fracture 1-22 ity of of of 00:00: [place] vertebrae vertebrae 00 Medi luke Branch Drug-induc Drug-induc Disease Active U nivers ed ed 1-22 ity of osteoporos osteoporos [place]: [place] 00 [facility] Personal Personal Disease Active Unive rs History of History of 1-22 it y of Other Other 00:00: [place] Diseases Diseases 00 Medica l of of Branch Digestive Digestive Disease Disease 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 00:00: [place] 00 Medical Branch Encounter Encounter Disease Active 2008-11 Uni vers for for 2-22 ity of long-term long-term 00:[place] (current[place] 00 [facility] use of use of Branch steroids steroids Psoriatic Psoriatic Disease Active Uni vers arthropath arthropath 3-18 it y of y y 00:00: [place] 00 Medical Branch History of History of [...] DA Active SV 2020-0 [facility]13 [place] [facility] pregabal DA Active SV 2020-0 [facility] in 04-13 [place] 00:[facility]: [facility] azathiop DA Active SV HEADACHES, [facility] rine FEVER, 04-13 [place] STOMACHACHE 00:00: [facility]alt [facility] pregabal DA Active SV FACE, 2019-0 [facility] in THROAT, AND 04-13 [place] EXTREMITY 00:00: Healthc SWELLING 00 [facility] ASPIRIN Allergy Active High N\\T\\V 2019-[address] [facility] [address] 07-06 [facility] 00:[facility]: Medical 00 [place] AZATHIOP Allergy Active High Anaphylaxis 2018-[address] RINE 07-06 [facility] 00:[facility]: Medical 00 [place] PREGABAL Allergy Active High Swelling 2019-0 [facility] IN 07-06 [facility]: Medical 00 [place] Aspirin Propensi Active Nausea And 2019-[address] ty to Vomiting 07-06 [facility] adverse 00:00: Medical reaction 00 [place] s Azathiop Propensi Active Anaphylaxis 2019-[address] rine ty to 07-06 [facility] adverse 00:00: Medical reaction 00 [place] Pregabal Propensi Active Swelling 2019-[address] in ty to 07-06 [facility] adverse 00:00: Medical reaction 00 [place] Pregabal Allergy Active Swelling 2017-0 Other [place] in to 07-21 reaction( Health substanc 00:00: s): FACE, e 00 THROAT, AND EXTREMITY SWELLING Pregabal Propensi Active Rash 2017-0 Univer s in ty to 07-21 ity of adverse 00:00: [place] reaction 00 Medical s Branch PREGABAL DRUG Active Rash 2017-0 Univers IN INGREDI 07-21 ity of 00:00: [place] 00 Medical Branch Aspirin Allergy Active Nausea Only Data [place] to 06-02 migrated Health substanc 00:00: from GE e 00 Centricit y on 03/04/15. Originall y documente d as ASA. Azathiop Allergy Active Swelling Other [place] rine to 06-02 reaction( Health substanc 00:00: s): e 00 HEADACHES , FEVER, STOMACHAC [facility] Originall y documente [...] icians hypertension Natural mother Diabetes [facility] Center Social History Social Habit Start Date Stop Date Quantity Comments Source Exposure to Not sure [facility] SARS-CoV-2 (event) History of tobacco Cigarette Smoker [facility] History SDOH [facility] Alcohol Binge Medical [facility] History SDOH [facility] Alcohol Comment Medical C enter History SDOH [facility] Alcohol Std Drinks Medica [facility] Alcohol intake 2019-07-08 2019-07-[address] [facility] 00:00:00 00:00:00 non-drinker of Medical Ce nter alcohol (finding) History SDOH 2019-07-07 2019-07-[address] [facility] Alcohol Frequency 00:00:00 00:00:00 [facility] Tobacco Comment 2019-07-06 2019-07-06 QUIT OVER [address] [facility] 00:00:00 00:00:00 YEARS AGO [facility] Tobacco use and 2019-07-06 2019-07-[address] [facility] Dianne kes exposure 00:00:00 00:00:00 [facility] Cigarettes smoked 2008-06-02 2008-06-02 Univers ity of current (pack per 00:00:00 00:00:00 ) - Reported Branch Cigarette 2008-06-02 2008-06-02 University of pack-years 00:00:00 00:00:00 [facility] Sex Ass[birth year] At [birth year] [facility] [address] Dianne acevedos 00:00:00 00:00:00 Medical Center Smoking Status Start Date Stop Date Source Tobacco smoking [facility] consumption unknown Never smoked tobacco [facility] Former smoker 2019-07-06 00:00:00 2019-07-06 [facility] 00:00:00 Center Medications Ordered Filled Start Stop [...] tablet 00:00: 00 gabapentin 2021-0 Yes 800mg [id number] Take 800 [facility] (Neurontin) 1-12 [id number] mg by H ealth 800 MG 00:00: 3D mouth 3 tablet 00 (three) times a day. HYDROcodone 2021-0 Yes 1{tbl} Q.[id number] Take 1 UT -acetaminop 1-12 [id number] tablet by Health hen ([place]) 00:00: 3D mouth 3 7.5-325 MG 00 [...] times a day. gabapentin 2-0 Yes 800mg Q.[id number] Take 800 [facility] (Neurontin) 1-12 [id number] mg by H ealth 800 MG 00:00: 3D mouth 3 tablet 00 (three) times a day. HYDROcodone 2021-0 Yes 1{tbl} Q.[id number] Take 1 UT -acetaminop 1-12 [id number] tablet by Health hen ([place]) 00:00: 3D mouth 3 7.5-325 MG 00 [...] 500 MG 00 tablet ergocalcife 2020-1 Yes [id number] Take 1 Univers rol, 0-15 capsule by ity of vitamin d2, 00:00: mouth [place] 1,250 mcg 00 weekly. Medical (50,000 Branch unit) capsule ergocalcife 2020-1 Yes [id number] Take 1 Univers rol, 0-15 capsule by ity of vitamin d2, 00:00: mouth [place] 1,250 mcg 00 weekly. Medical (50,000 Branch unit) capsule ergocalcife 2020- Yes [id number] Take 1 Univers rol, 0-15 capsule by ity of vitamin d2, 00:00: mouth [place] 1,250 mcg 00 weekly. Medical (50,000 Branch unit) capsule ergocalcife 2020- Yes [id number] Take 1 Univers rol, 0-15 capsule by ity of vitamin d2, 00:00: mouth [place] 1,250 mcg 00 weekly. Medical (50,000 Branch unit) capsule ergocalcife 2020- Yes [id number] Take 1 Univers rol, 0-15 capsule by ity of vitamin d2, 00:00: mouth [place] 1,250 mcg 00 weekly. Medical (50,000 Branch unit) capsule ergocalcife 2020-2021- No 1{capsu Take 1 UT rol 0-15 11-19 le} capsule by Health (Vitamin 00:00: 05:59 mouth 1 D-2) 1.25 00 :00 (one) time MG ([id number] per week. UT) capsule ergocalcife 20202021- No 1{capsu Take 1 UT rol 0-15 11-19 le} capsule by Health (Vitamin 00:00: 05:59 mouth 1 D-2) 1.25 00 :00 (one) time MG ([id number] per week. [facility]) capsule furosemide 0 Yes Univers 20 mg 8-06 ity of tablet 00:00: [facility] furosemide 2020-0 Yes Univers 20 mg 8-06 ity of tablet 00:00: [facility] furosemide 2020-0 Yes Univers 20 mg 8-06 ity of tablet 00:00: [facility] furosemide 2020-0 Yes Univers 20 mg 8-06 ity of tablet 00:00: [facility] furosemide 2020-0 Yes Univers 20 mg 8-06 ity of tablet 00:00: [facility] furosemide 2020-0 Yes Univers 20 mg 8-06 ity of tablet 00:00: [facility] furosemide 2020-0 Yes Univers 20 mg 8-06 ity of tablet 00:00: [facility] furosemide 2020-0 Yes Univers 20 mg 8-06 ity of tablet 00:00: 00 Medical Branch furosemide 2020-0 Yes Univers 20 mg 8-06 ity of tablet 00:00: 00 Medical Branch furosemide 2020-0 Yes Univers 20 mg 8-06 ity of tablet 00:00: [place] 00 Medical Branch testosteron 2020-0 Yes [id number] 80mg 0.8 mL by Univers e cypionate 2-19 Intramuscu it y of 100 mg/mL 00:00: lar route [place] as injection 00 weekly. Medical Branch testosteron 2020-0 Yes [id number] 80mg 0.8 mL by Univers e cypionate 2-19 Intramuscu it y of 100 mg/mL 00:00: lar route [place] as injection 00 weekly. Medical Branch testosteron 2020-0 Yes [id number] 80mg 0.8 mL by Univers e cypionate 2-19 Intramuscu it y of 100 mg/mL 00:00: lar route [place] as injection 00 weekly. Medical Branch testosteron 2020-0 Yes [id number] 80mg 0.8 mL by Univers e cypionate 2-19 Intramuscu it y of 100 mg/mL 00:00: lar route [place] as injection 00 weekly. Medical Branch testosteron 2020-0 Yes [id number] 80mg 0.8 mL by Univers e cypionate 2-19 Intramuscu it y of 100 mg/mL 00:00: lar route [place] as injection 00 weekly. Medical Branch testosteron 2020-0 Yes [id number] 80mg 0.8 mL by Univers e cypionate 2-19 Intramuscu it y of 100 mg/mL 00:00: lar route [place] as injection 00 weekly. Medical Branch testosteron 2020-0 Yes [id number] 80mg 0.8 mL by Univers e cypionate 2-19 Intramuscu it y of 100 mg/mL 00:00: lar route [place] as injection 00 weekly. Medical Branch testosteron 2020-0 Yes [id number] 80mg 0.8 mL by Univers e cypionate 2-19 Intramuscu it y of 100 mg/mL 00:00: lar route [place] as injection 00 weekly. Medical Branch testosteron 2020-0 Yes [id number] 80mg 0.8 mL by Univers e cypionate 2-19 Intramuscu it y of 100 mg/mL 00:00: lar route [place] as injection 00 weekly. Medical Branch testosteron 2020-0 Yes [id number] 80mg 0.8 mL by Univers e cypionate 2-19 Intramuscu it y of 100 mg/mL 00:00: lar route [place] as injection 00 weekly. Medical Branch testosteron 2020-0 Yes [id number] 80mg 0.8 mL by Univers e cypionate 2-19 Intramuscu it y of 100 mg/mL 00:00: lar route [place] as injection 00 weekly. Medical Branch testosteron 2020-0 Yes [id number] 80mg 0.8 mL by Univers e cypionate 2-19 Intramuscu it y of 100 mg/mL 00:00: lar route [place] as injection 00 weekly. Medical Branch testosteron 2020-0 Yes [id number] 80mg 0.8 mL by [facility] e cypionate 2-19 Intramuscu it y of 100 mg/mL 00:00: lar route [place] as injection 00 weekly. Medical Branch testosteron 2020-0 Yes [id number] 80mg 0.8 mL by [facility] e cypionate 2-19 Intramuscu it y of 100 mg/mL 00:00: lar route [place] as injection 00 weekly. Medical Branch testosteron 2019-0 2020- No [id number] 80mg 0.8 mL by [facility] e cypionate 207-21 Intramuscu i ty of 100 mg/mL 00:00: 00:00 lar route [place] injection 00 :00 weekly. Medical Branch testosteron 2019-0 2020- No [id number] 80mg 0.8 mL by [facility] e cypionate 207-21 Intramuscu i ty of 100 mg/mL 00:00: 00:00 lar route [place] injection 00 :00 weekly. Medical Branch testosteron 2020-0 Yes [id number] 80mg 0.8 mL by [facility] e cypionate 2-14 Intramuscu it y of 100 mg/mL 00:00: lar route [place] as injection 00 weekly. Medical Branch testosteron 2020-0 Yes [id number] 80mg 0.8 mL by [facility] e cypionate 2-14 Intramuscu it y of 100 mg/mL 00:00: lar route [place] as injection 00 weekly. Medical Branch testosteron 2019-0 2020- No [id number] 80mg 0.8 mL by [facility] e cypionate 2-14 02-19 Intramuscu i ty of 100 mg/mL 00:00: 00:00 lar route [place] injection 00 :00 weekly. Medical Branch Syringe 2018- Yes [id number] Use as Univ ers with 2-16 directed ity of Needle, 00:00: once a [place] Disp, 1 mL 00 week Medical 20 gauge x Branch 1" Syrg Syringe 2018- Yes [id number] Use as Univ ers with 2-16 directed ity of Needle, 00:00: once a [place] Disp, 1 mL 00 week Medical 20 gauge x Branch 1" Syrg Syringe 2018- Yes [id number] Use as Univ ers with 2-16 directed ity of Needle, 00:00: once a [place] Disp, 1 mL 00 week Medical 20 gauge x Branch 1" Syrg Syringe 2018- Yes [id number] Use as Univ ers with 2-16 directed ity of Needle, 00:00: once a [place] Disp, 1 mL 00 week Medical 20 gauge x Branch 1" Syrg Syringe 2018- Yes [id number] Use as Univ ers with 2-16 directed ity of Needle, 00:00: once a [place] Disp, 1 mL 00 week Medical 20 gauge x Branch 1" Syrg Syringe 2018- Yes [id number] Use as Univ ers with 2-16 directed ity of Needle, 00:00: once a [place] Disp, 1 mL 00 week Medical 20 gauge x Branch 1" Syrg Syringe 2018- Yes [id number] Use as Univ ers with 2-16 directed ity of Needle, 00:00: once a [place] Disp, 1 mL 00 week Medical 20 gauge x Branch 1" Syrg Syringe 2018- Yes [id number] Use as Univ ers with 2-16 directed ity of Needle, 00:00: once a [place] Disp, 1 mL 00 week Medical 20 gauge x Branch 1" Syrg Syringe 2018- Yes [id number] Use as Univ ers with 2-16 directed ity of Needle, 00:00: once a [place] Disp, 1 mL 00 week Medical 20 gauge x Branch 1" Syrg Syringe 2018- Yes [id number] Use as Univ ers with 2-16 directed ity of Needle, 00:00: once a [place] Disp, 1 mL 00 week Medical 20 gauge x Branch 1" Syrg Syringe 2018- Yes [id number] Use as Univ ers with 2-16 directed ity of Needle, 00:00: once a [place] Disp, 1 mL 00 week Medical 20 gauge x Branch 1" Syrg Syringe 2018-11 Yes [id number] Use as Univ ers with 2-16 directed ity of Needle, 00:00: once a [place] Disp, 1 mL 00 week Medical 20 gauge x Branch 1" Syrg Syringe 2018-11 Yes [id number] Use as Univ ers with 2-16 directed ity of Needle, 00:00: once a [place] Disp, 1 mL 00 week Medical 20 gauge x Branch 1" Syrg Syringe 2018-11 Yes [id number] Use as Univ ers with 2-16 directed ity of Needle, 00:00: once a [place] Disp, 1 mL 00 week Medical 20 gauge x Branch 1" Syrg Syringe 2018-11 Yes [id number] Use as Univ ers with 2-16 directed ity of Needle, 00:00: once a [place] Disp, 1 mL week Medical 20 gauge x Branch 1" Syrg testosteron 2018-11 Yes [id number] 80mg 0.8 mL by Univers e cypionate 2-16 Intramuscu it y of 100 mg/mL 00:00: lar route [place] as injection 00 weekly. Medical Branch Syringe 2018-11 Yes [id number] Use as Univ ers with 2-16 directed ity of Needle, 00:00: once a [place] Disp, 1 mL 00 week Medical 20 gauge x Branch 1" Syrg testosteron 2018-11 Yes [id number] 80mg 0.8 mL by Univers e cypionate 2-16 Intramuscu it y of 100 mg/mL 00:00: lar route [place] as injection 00 weekly. Medical Branch Syringe 2018-11 Yes [id number] Use as Univ ers with 2-16 directed ity of Needle, 00:00: once a [place] Disp, 1 mL 00 week Medical 20 gauge x Branch 1" Syrg testosteron 2018-11 Yes [id number] 80mg 0.8 mL by Univers e cypionate 2-16 Intramuscu it y of 100 mg/mL 00:00: lar route [place] as injection 00 weekly. Medical Branch Syringe 2018-11 Yes [id number] Use as Univ ers with 2-16 directed ity of Needle, 00:00: once a [place] Disp, 1 mL 00 week Medical 20 gauge x Branch 1" Syrg testosteron 2018-11 Yes [id number] 80mg 0.8 mL by Univers e cypionate 16 Intramuscu it y of 100 mg/mL 00:00: lar route [place] as injection 00 weekly. Medical Branch Syringe 2018-11 Yes [id number] Use as Univ ers with 2-16 directed ity of Needle, 00:00: once a [place] Disp, 1 mL 00 week Medical 20 gauge x Branch 1" Syrg Syringe 2018-11 Yes [id number] Use as Univ ers with 16 directed ity of Needle, 00:00: once a [place] Disp, 1 mL 00 week Medical 20 gauge x Branch 1" Syrg Syringe 2018-11 2020- No [id number] Use as Uni vers with -07-21 directed ity of Needle, 00:00: 00:00 once a [place] Disp, 1 mL 00 :00 week Medical 20 gauge x Branch 1" Syrg Syringe 2018-11 2020- No [id number] Use as Uni vers with 12-21 directed ity of Needle, 00:00: 00:00 once a [place] Disp, 1 mL 00 :00 week Medical 20 gauge x Branch 1" Syrg testosteron 2018-11 2020- No [id number] 80mg 0.8 mL by Univers e cypionate 16 -14 Intramuscu i ty of 100 mg/mL 00:00: 00:00 lar route [place] injection 00 :00 weekly. [facility] Branch gabapentin 2018-11 Yes 800mg Take 800 Un melchor 800 mg 2-11 mg by ity of tablet 14:36: mouth. [address] gabapentin 2018-11 Yes 800mg Take 800 Un melchor 800 mg 2-11 mg by ity of tablet 14:36: mouth. [address] gabapentin 2018-11 Yes 800mg Take 800 Un melchor 800 mg 2-11 mg by ity of tablet 14:36: mouth. [address] gabapentin 2018-11 Yes 800mg Take 800 Un melchor 800 mg 2-11 mg by ity of tablet 14:36: mouth. [address] gabapentin 2018-11 Yes 800mg Take 800 Un melchor 800 mg 2-11 mg by ity of tablet 14:36: mouth. [address] gabapentin 2018-11 Yes 800mg Take 800 Un melchor 800 mg 2-11 mg by ity of tablet 14:36: mouth. [address] gabapentin 2018-11 Yes 800mg Take 800 Un melchor 800 mg 2-11 mg by ity of tablet 14:36: mouth. [address] gabapentin 2018- Yes 800mg Take 800 Un melchor 800 mg 2-11 mg by ity of tablet 14:36: mouth. [address] gabapentin 2018- Yes 800mg Take 800 Un melchor 800 mg 2-11 mg by ity of tablet 14:36: mouth. [address] gabapentin 2018- Yes 800mg Take 800 Un melchor 800 mg 2-11 mg by ity of tablet 14:36: mouth. [address] gabapentin 2018- Yes 800mg Take 800 Un melchor 800 mg 2-11 mg by ity of tablet 14:36: mouth. [address] gabapentin 2018- Yes 800mg Take 800 Un melchor 800 mg 2-11 mg by ity of tablet 14:36: mouth. [address] gabapentin 2018- Yes 800mg Take 800 Un melchor 800 mg 2-11 mg by ity of tablet 14:36: mouth. [address] gabapentin 2018- Yes 800mg Take 800 Un melchor 800 mg 2-11 mg by ity of tablet 14:36: mouth. [address] gabapentin 2018- Yes 800mg Take 800 Un melchor 800 mg 2-11 mg by ity of tablet 14:36: mouth. [address] gabapentin 2018- Yes 800mg Take 800 Un melchor 800 mg 2-11 mg by ity of tablet 14:36: mouth. [address] gabapentin 2018- Yes 800mg Take 800 Un melchor 800 mg 2-11 mg by ity of tablet 14:36: mouth. [address] gabapentin 2018- Yes 800mg Take 800 Un melchor 800 mg 2-11 mg by ity of tablet 14:36: mouth. [address] gabapentin 2018- Yes 800mg Take 800 Un melchor 800 mg 2-11 mg by ity of tablet 14:36: mouth. [address] gabapentin 2018- Yes 800mg Take 800 Un melchor 800 mg 2-11 mg by ity of tablet 14:36: mouth. [address] gabapentin 2018- Yes 800mg Take 800 Un melchor 800 mg 2-11 mg by ity of tablet 14:36: mouth. [address] gabapentin 2018- Yes 800mg Take 800 Un melchor 800 mg 2-11 mg by ity of tablet 14:36: mouth. [address] gabapentin 2018- Yes 800mg Take 800 Un melchor 800 mg 2-11 mg by ity of tablet 14:36: mouth. [address] gabapentin 2018- Yes 800mg Take 800 Un melchor 800 mg 2-11 mg by ity of tablet 14:36: mouth. [address] gabapentin 2018- Yes 800mg Take 800 Un melchor 800 mg 2-11 mg by ity of tablet 14:36: mouth. [address] gabapentin 2018- Yes 800mg Take 800 Un melchor 800 mg 2-11 mg by ity of tablet 14:36: mouth. [address] gabapentin 2018- Yes 800mg Take 800 Un melchor 800 mg 2-11 mg by ity of tablet 14:36: mouth. [address] gabapentin 2018- Yes 800mg Take 800 Un melchor 800 mg 2-11 mg by ity of tablet 14:36: mouth. [address] gabapentin 2018- Yes 800mg Take 800 Un melchor 800 mg 2-11 mg by ity of tablet 14:36: mouth. [address] gabapentin 2018- Yes 800mg Take 800 Un melchor 800 mg 2-11 mg by ity of tablet 08:36: mouth. [address] gabapentin 2018- Yes 800mg Take 800 Un melchor 800 mg 2-11 mg by ity of tablet 08:36: mouth. [address] predniSONE 2019- Yes TK 1 T PO Un melchor 5 mg tablet - BID ity of 00:00: [address] predniSONE 2019- Yes TK 1 T PO Un melchor 5 mg tablet - BID ity of 00:00: [address] predniSONE 2019- Yes TK 1 T PO Un melchor 5 mg tablet - BID ity of 00:00: [address] predniSONE 2019- Yes TK 1 T PO Un melchor 5 mg tablet - BID ity of 00:00: [address] predniSONE 2019- Yes TK 1 T PO Un melchor 5 mg tablet - BID ity of 00:00: [address] predniSONE 2019- Yes TK 1 T PO Un melchor 5 mg tablet - BID ity of 00:00: [address] predniSONE 2019- Yes TK 1 T PO Un melchor 5 mg tablet 12-03 BID ity of 00:00: [place] [facility] predniSONE 2019- Yes TK 1 T PO Un melchor 5 mg tablet 12-03 BID ity of 00:00: [place] [facility] predniSONE 2019- Yes TK 1 T PO Un melchor 5 mg tablet 12-03 BID ity of 00:00: [place] [facility] predniSONE 2019- Yes TK 1 T PO Un melchor 5 mg tablet 12-03 BID ity of 00:00: [place] [facility] predniSONE 2019- Yes TK 1 T PO Un melchor 5 mg tablet 12-03 BID ity of 00:00: [place] [facility] predniSONE 2019- Yes TK 1 T PO Un melchor 5 mg tablet 12-03 BID ity of 00:00: [address] predniSONE 2019- Yes TK 1 T PO Un melchor 5 mg tablet 12-03 BID ity of 00:00: [address] predniSONE 2019- Yes TK 1 T PO Un melchor 5 mg tablet 12-03 BID ity of 00:00: [address] predniSONE 2019- Yes TK 1 T PO Un melchor 5 mg tablet 12-03 BID ity of 00:00: [address] predniSONE 2019- Yes TK 1 T PO Un melchor 5 mg tablet 12-03 BID ity of 00:00: [address] predniSONE 2019- Yes TK 1 T PO Un melchor 5 mg tablet 12-03 BID ity of 00:00: [address] predniSONE 2019- Yes TK 1 T PO Un melchor 5 mg tablet 12-03 BID ity of 00:00: [place] [facility] predniSONE 2019- Yes TK 1 T PO Un melchor 5 mg tablet 12-03 BID ity of 00:00: [address] predniSONE 2019- Yes TK 1 T PO Un melchor 5 mg tablet 12-03 BID ity of 00:00: [address] predniSONE 2019- Yes TK 1 T PO Un melchor 5 mg tablet 12-03 BID ity of 00:00: [place] [facility] predniSONE 2019- Yes TK 1 T PO Un melchor 5 mg tablet 12-03 BID ity of 00:00: [address] predniSONE 2019- Yes TK 1 T PO Un melchor 5 mg tablet 12-03 BID ity of 00:00: [address] predniSONE 2018- Yes TK 1 T PO Un melchor 5 mg tablet 12-03 BID ity of 00:00: [place] [facility] predniSONE 2019- Yes TK 1 T PO Un melchor 5 mg tablet 12-03 BID ity of 00:: [place] [facility] predniSONE 2018- Yes TK 1 T PO Un melchor 5 mg tablet 12-03 BID ity of 00:: [place] [facility] predniSONE 2018- Yes TK 1 T PO Un melchor 5 mg tablet 12-03 BID ity of 00:: [place] [facility] predniSONE 2018- Yes TK 1 T PO Un melchor 5 mg tablet 12-03 BID ity of 00:: [place] [facility] predniSONE 2019- Yes TK 1 T PO Un melchor 5 mg tablet 12-03 BID ity of :: [place] [facility] predniSONE 2018- Yes TK 1 T PO Un melchor 5 mg tablet 12-03 BID ity of 00:00: [place] [facility] predniSONE 2018- Yes TK 1 T PO Un melchor 5 mg tablet 12-03 BID ity of 00:00: [place] [facility] predniSONE Yes 5mg Q.5D Take [address] [facility] (DELTASONE) 9-11 by mouth 2 Dianne kes 5 MG tablet 14:01: (two) Medic al 49 times Center daily. gabapentin Yes 800mg Q.[id number] Take [address] [facility] [address] (NEURONTIN) 9-11 [id number] mg by L ukes 800 MG 14:01: [...] 14:01: as needed. Medica l capsule 49 [place] teriparatid Yes QD Inject [facility] (FORTEO 9-11 subcutaneo Luke [facility] SUBQ) 14:01: usly daily Medica l 49 . Center testosteron Yes 200mg Q7D Inject [address] [address] cypionate 9-11 mg [facility] (DEPOTESTOT 14:01: intramuscu Medical ERONE 49 larly once Center CYPIONATE) a week. 200 mg/mL injection predniSONE 0 Yes 5mg Q.5D Take [address] [facility] [address] [facility] (DELTASONE) 9-11 by mouth 2 Dianne kes 5 MG tablet 14:01: (two) Medic al 49 times Center daily. gabapentin Yes 800mg Q.[id number] Take [address] (NEURONTIN) 9-11 [id number] mg by L ukes 800 MG 14:01: [...] 49 times Center daily. gabapentin Yes 800mg Q.[id number] Take [address] (NEURONTIN) 9-11 [id number] mg by L ukes 800 MG 14:01: [...] MG 3-30 CHEN PA capsule a [facility] (45372 UT) (32729 UT) 00:00: week for ans Oral Oral 00 12 weeks. Capsule Capsule esomeprazol Yes Univer s e 40 mg 3-23 ity of capsule 00:00: [facility] esomeprazol Yes Univer s e 40 mg 3-23 ity of capsule 00:00: [facility] esomeprazol 0 Yes Univer s e 40 mg 3-23 ity of capsule 00:00: [facility] esomeprazol 0 Yes Univer s e 40 mg 3-23 ity of capsule 00:00: [facility] esomeprazol 0 Yes Univer s e 40 mg 3-23 ity of capsule 00:00: [facility] esomeprazol 0 Yes Univer s e 40 mg 3-23 ity of capsule 00:00: [facility] esomeprazol 0 Yes Univer s e 40 mg 3-23 ity of capsule 00:00: Medical Branch esomeprazol 0 Yes Univer s e 40 mg 3-23 ity of capsule 00:00: [facility] esomeprazol 0 Yes Univer s e 40 mg 3-23 ity of capsule 00:00: [facility] esomeprazol 0 Yes Univer s e 40 mg 3-23 ity of capsule 00:00: [facility] esomeprazol 2017-0 Yes Univer s e 40 mg 3-23 ity of capsule 00:00: [facility] esomeprazol 2017-0 Yes Univer s e 40 mg 3-23 ity of capsule 00:00: [facility] esomeprazol 2017-0 Yes Univer s e 40 mg 3-23 ity of capsule 00:00: [facility] esomeprazol 2017-0 Yes Univer s e 40 mg 3-23 ity of capsule 00:00: [facility] esomeprazol 2017-0 Yes Univer s e 40 mg 3-23 ity of capsule 00:00: [facility] esomeprazol 2017-0 Yes Univer s e 40 mg 3-23 ity of capsule 00:00: [facility] esomeprazol 2017-0 Yes Univer s e 40 mg 3-23 ity of capsule 00:00: [facility] esomeprazol 2017-0 Yes Univer s e 40 mg 3-23 ity of capsule 00:00: [facility] esomeprazol 2017-0 Yes Univer s e 40 mg 3-23 ity of capsule 00:00: [facility] esomeprazol 2017-0 Yes Univer s e 40 mg 3-23 ity of capsule 00:00: [facility] esomeprazol 2017-0 Yes Univer s e 40 mg 3-23 ity of capsule 00:00: [facility] esomeprazol 2017-0 Yes Univer s e 40 mg 3-23 ity of capsule 00:00: [facility] esomeprazol 2017-0 Yes Univer s e 40 mg 3-23 ity of capsule 00:00: [facility] esomeprazol 2017-0 Yes Univer s e 40 mg 3-23 ity of capsule 00:00: [facility] esomeprazol 2017-0 Yes Univer s e 40 mg 3-23 ity of capsule 00:00: [facility] esomeprazol 2017-0 Yes Univer s e 40 mg 3-23 ity of capsule 00:00: [facility] esomeprazol 2017-0 Yes Univer s e 40 mg 3-23 ity of capsule 00:00: [facility] esomeprazol 0 Yes Univer s e 40 mg 3-23 ity of capsule 00:00: [facility] esomeprazol 0 Yes Univer s e 40 mg 3-23 ity of capsule 00:00: [facility] esomeprazol 0 Yes Wild s e 40 mg 3-23 ity of capsule 00:00: [facility] esomeprazol 0 Yes Wild s e 40 mg 3-23 ity of capsule 00:00: [facility] oxyCODONE-a 0 Yes Wild agarwal [...] mg 00:00: [place] per tablet 00 [facility] oxyCODONE-a Yes Univer s cetaminophe 3-07 ity of n 10-325 mg 00:00: [place] per tablet 00 [facility] oxyCODONE-a Yes Univer s cetaminophe 3-07 ity of n 10-325 mg 00:00: [place] per tablet 00 [facility] oxyCODONE-a Yes Univer s cetaminophe 3-07 ity of n 10-325 mg 00:00: [place] per tablet 00 [facility] oxyCODONE-a Yes Univer s cetaminophe 3-07 ity of n 10-325 mg 00:00: [place] per tablet 00 [facility] oxyCODONE-a Yes Univer s cetaminophe 3-07 ity of n 10-325 mg 00:00: [place] per tablet 00 [facility] oxyCODONE-a Yes Univer s cetaminophe 3-07 ity of n 10-325 mg 00:00: [place] per tablet 00 [facility] oxyCODONE-a Yes Univer s cetaminophe 3-07 ity of n 10-325 mg 00:00: [place] per tablet 00 [facility] oxyCODONE-a Yes Univer s cetaminophe 3-07 ity of n 10-325 mg 00:00: [place] per tablet 00 [facility] predniSONE predniSONE Yes Q0.5D TAKE 1 UT [...] 25 ne HCl - 25 2-08 KATIE M.D. TABLET AT [facility] MG Oral MG Oral 00:00: BEDTIME. ans Tablet Tablet 00 teriparatid Yes [id number] 20ug inject Univers e (FORTEO) 1-31 0.08 mL ity of 20 mcg/dose 00:00: [place] the [place] - 600 00 skin Medical mcg/2.4 mL daily. Branch injection teriparatid Yes [id number] 20ug inject Univers e (FORTEO) 1-31 0.08 mL ity of 20 mcg/dose 00:00: [place] the [place] - 600 00 skin Medical mcg/2.4 mL daily. Branch injection teriparatid Yes [id number] 20ug inject Univers e (FORTEO) 1-31 0.08 mL ity of 20 mcg/dose 00:00: [place] the [place] - 600 00 skin Medical mcg/2.4 mL daily. Branch injection teriparatid Yes [id number] 20ug inject Univers e (FORTEO) -31 0.08 mL ity of 20 mcg/dose 00:00: [place] the [place] - 600 00 skin Medical mcg/2.4 mL daily. Branch injection teriparatid Yes [id number] 20ug inject Univers e (FORTEO) -31 0.08 mL ity of 20 mcg/dose 00:00: [place] the [place] - 600 00 skin Medical mcg/2.4 mL daily. Branch injection teriparatid Yes [id number] 20ug inject Univers e (FORTEO) 1-31 0.08 mL ity of 20 mcg/dose 00:00: under the [place] - 600 00 skin Medical mcg/2.4 mL daily. Branch injection teriparatid Yes [id number] 20ug inject Univers e (FORTEO) 1-31 0.08 mL ity of 20 mcg/dose 00:00: under the [place] - 600 00 skin Medical mcg/2.4 mL daily. Branch injection teriparatid Yes [id number] 20ug inject Univers e (FORTEO) 1-31 0.08 mL ity of 20 mcg/dose 00:00: under the [place] - 600 00 skin Medical mcg/2.4 mL daily. Branch injection teriparatid Yes [id number] 20ug inject Univers e (FORTEO) 31 0.08 mL ity of 20 mcg/dose 00:00: under the [place] - 600 00 skin Medical mcg/2.4 mL daily. Branch injection teriparatid Yes [id number] 20ug inject Univers e (FORTEO) 31 0.08 mL ity of 20 mcg/dose 00:00: under the [place] - 600 00 skin Medical mcg/2.4 mL daily. Branch injection teriparatid Yes [id number] 20ug inject Univers e (FORTEO) 12-05 0.08 mL ity of 20 mcg/dose 00:00: under the [place] - 600 00 skin Medical mcg/2.4 mL daily. Branch injection teriparatid Yes [id number] 20ug inject Univers e (FORTEO) 12-05 0.08 mL ity of 20 mcg/dose 00:00: under the [place] - 600 00 skin Medical mcg/2.4 mL daily. Branch injection teriparatid 2020- No [id number] 20ug inject Univers e (FORTEO) 12-05 06-10 0.08 mL ity o f 20 mcg/dose 00:00: 00:00 under the - 600 00 :00 skin Medical mcg/2.4 mL daily. Branch injection teriparatid 2020- No [id number] 20ug inject Univers e (FORTEO) 12-05 06-10 0.08 mL ity o f 20 mcg/dose 00:00: 00:00 under the - 600 00 :00 skin Medical mcg/2.4 mL daily. Branch injection Immunizations Ordered Filled Immunization Date Status Comments [facility] e Immunization Name Name Td 2011-02-16 Completed [facility] 00:00:00 PPD (TB) 2009-01-20 Completed [facility] 00:00:00 [facility] PPD (TB) 2009-01-20 Completed [facility] 00:00:00 [facility] PPD (TB) 2009-01-20 Completed [facility] 00:00:00 [facility] PPD (TB) 2009-01-20 Completed [facility] 00:00:00 [facility] PPD (TB) 2009-01-20 Completed University of 00:00:00 [facility] PPD (TB) 2009-01-20 Completed University of 00:00:00 [facility] PPD (TB) 2009-01-20 Completed University of 00:00:00 [facility] PPD (TB) 2009-01-20 Completed University of 00:00:00 [facility] PPD (TB) 2009-01-20 Completed University of 00:00:00 [facility] PPD (TB) 2009-01-20 Completed University of 00:00:00 [facility] PPD (TB) 2009-01-20 Completed University of 00:00:00 [facility] PPD (TB) 2009-01-20 Completed University of 00:00:00 [facility] PPD (TB) 2009-01-20 Completed University of 00:00:00 [facility] PPD (TB) 2009-01-20 Completed University of 00:00:00 [facility] PPD (TB) 2009-01-20 Completed University of 00:00:00 [facility] PPD (TB) 2009-01-20 Completed University of 00:00:00 [facility] PPD (TB) 2009-01-20 Completed University of 00:00:00 [facility] PPD (TB) 2009-01-20 Completed University of 00:00:00 [facility] PPD (TB) 2009-01-20 Completed University of 00:00:00 [facility] PPD (TB) 2009-01-20 Completed University of 00:00:00 [facility] PPD (TB) 2009-01-20 Completed University of 00:00:00 [facility] PPD (TB) 2009-01-20 Completed University of 00:00:00 [facility] PPD (TB) 2009-01-20 Completed University of 00:00:00 [facility] PPD (TB) 2009-01-20 Completed University of 00:00:00 [facility] PPD (TB) 2009-01-20 Completed University of 00:00:00 [facility] PPD (TB) 2009-01-20 Completed University of 00:00:00 [facility] PPD (TB) 2009-01-20 Completed University of 00:00:00 [facility] PPD (TB) 2009-01-20 Completed University of 00:00:00 [facility] PPD (TB) 2009-01-20 Completed University of 00:00:00 [facility] PPD (TB) 2009-01-20 Completed University of 00:00:00 [facility] PPD (TB) 2009-01-20 Completed University of 00:00:00 [facility] PPD (TB) 2009-01-20 Completed University of 00:00:00 [facility] PPD (TB) 2009-01-20 Completed University of 00:00:00 [facility] PPD (TB) 2009-01-20 Completed University of 00:00:00 [facility] PPD (TB) 2009-01-20 Completed University of 00:00:00 [facility] PPD (TB) 2009-01-20 Completed University of 00:00:00 [facility] PPD (TB) 2009-01-20 Completed University of 00:00:00 [facility] PPD (TB) 2009-01-20 Completed University of 00:00:00 [facility] PPD (TB) 2009-01-20 Completed University of 00:00:00 [facility] PPD (TB) 2009-01-20 Completed University of 00:00:00 [facility] PPD (TB) 2009-01-20 Completed University of 00:00:00 [facility] PPD (TB) 2009-01-20 Completed University of 00:00:00 [facility] PPD (TB) 2009-01-20 Completed University of 00:00:00 [facility] PPD (TB) 2009-01-20 Completed University of 00:00:00 [facility] PPD (TB) 2009-01-20 Completed University of 00:00:00 [facility] PPD (TB) 2009-01-20 Completed University of 00:00:00 [facility] PPD (TB) 2009-01-20 Completed University of 00:00:00 [facility] PPD (TB) 2009-01-20 Completed University of 00:00:00 [facility] PPD (TB) 2009-01-20 Completed University of 00:00:00 [facility] PPD (TB) 2009-01-20 Completed University of 00:00:00 [facility] PPD (TB) 2009-01-20 Completed University of 00:00:00 [facility] PPD (TB) 2009-01-20 Completed University of 00:00:00 [facility] PPD (TB) 2009-01-20 Completed University of 00:00:00 [facility] PPD (TB) 2009-01-20 Completed University of 00:00:00 [facility] PPD (TB) 2009-01-20 Completed University of 00:00:00 [facility] PPD (TB) 2009-01-20 Completed University of 00:00:00 [facility] PPD (TB) 2009-01-20 Completed University of 00:00:00 [facility] PPD (TB) 2009-01-20 Completed University of 00:00:00 [facility] PPD (TB) 2009-01-20 Completed University of 00:00:00 [facility] PPD (TB) 2009-01-20 Completed University of 00:00:00 [facility] PPD (TB) 2009-01-20 Completed University of 00:00:00 [facility] PPD (TB) 2009-01-20 Completed University of 00:00:00 [facility] Vital Signs Vital Name Observation Time Observation Value Comments Source Body height 2021-12-20 16:05:00 [facility] 2021-12-20 16:05:00 [facility]204 [facility] 2021-12-20 16:05:00 24.81 [facility] Systolic blood 2020-07-21 18:47:00 109 mm[Hg] Univer sity of pressure [facility] Diastolic blood 2020-07-21 18:47:00 74 mm[Hg] Unive rsity of pressure [facility] Heart rate 2020-07-21 18:47:00 104 /min Universi ty [facility] Body height 2020-07-21 18:47:00 172.7 cm Universi [facility] Body weight 2020-07-21 18:47:00 69.4 kg Universi ty [facility] BMI 2020-07-21 18:47:00 23.26 kg/m2 Universi [facility] Oxygen saturation in 2020-07-21 18:47:00 98 /min [facility] Arterial blood by [facility] Pulse oximetry Branch Systolic blood 2020-07-21 18:47:00 109 mm[Hg] Univer sity of pressure [facility] Diastolic blood 2020-07-21 18:47:00 74 mm[Hg] Unive rsity of pressure [facility] Heart rate 2020-07-21 18:47:00 104 /min Universi ty [facility] Body height 2020-07-21 18:47:00 172.7 cm Universi ty [facility] Body weight 2020-07-21 18:47:00 69.4 kg Universi [facility] BMI 2020-07-21 18:47:00 23.26 kg/m2 [facility] Oxygen saturation in 2020-07-21 18:47:00 98 /min [facility] Arterial blood by [facility] Pulse oximetry Branch Systolic blood 2020-04-14 16:07:00 120 mm[Hg] Univer sity of pressure [facility] Diastolic blood 2020-04-14 16:07:00 82 mm[Hg] Unive rsity of [facility] Heart rate 2020-04-14 16:07:00 101 /min [facility] Respiratory rate 2020-04-14 16:07:00 18 /min Univ ersity [facility] Body weight 2020-04-14 16:07:00 71.668 kg [facility] BMI 2020-04-14 16:07:00 21.43 kg/m2 [facility] Height 2018-05-31 14:24:00 71 [in_us] [facility] Weight 2018-05-31 14:24:00 180 [lb_av] [facility] Body Mass Index 2018-05-31 14:24:00 25.11 kg/m2 [facility] Calculated Height 2018-04-15 14:55:00 71 [in_us] [facility] Weight 2018-04-15 14:55:00 180 [lb_av] [facility] Body Mass Index 2018-04-15 14:55:00 25.11 kg/m2 [facility] Calculated Procedures Procedure Date / Time Performing Clinician Source Performed REFERRAL- REQUEST/RESPONSE 2022-05-12 05:01:00 Doctor Salmassigned , [facility] REFERRAL- REQUEST/RESPONSE 2020-08-09 05:01:00 Doctor Salmassigned , [facility] REFERRAL- REQUEST/RESPONSE 2020-07-28 05:01:00 Doctor Salmassigned , [facility] AGREEMENTS AUTHORIZATIONS 2019-11-27 06:01:00 Doctor Salmassigned, [facility] AND IRREVOCABLE [facility] [place] [facility] ASSIGNMENTS (FORM 2001) [Q] C [...] Energy 2019-04-17 00:00:00 [facility] X-[facility]) [id number] [U] XRAY ELBOW MIN 3 VWS 2018-08-09 00:00:00 [facility] LEFT [id number] [QLH] SED RATE BY MODIFIED 2018-04-15 00:00:00 [...] Medica l Center colon (procedure) [code = 905986898] Future Scheduled 2020-07-06 INFLUENZA VACCINE (#1) C [...] Luke s Test 00:00:00 (procedure) [code = [facility] [id number]] Future Scheduled [address] [facility] Test 00:00:00 0-64 YRS (1 of 3 - Medical C enter PCV13) [code = PNEUMOCOCCAL VACCINE 0-64 YRS (1 of 3 - PCV13)] Encounters Start End Encounter Admission Attending Care Care Encounter Source Date/Time Date/Time Type Type Clinicians Facility Department ID 2021-12-20 Outpatient [facility] [id number] [place] 10:13:23 Health 2021-12-20 Outpatient [facility] [id number] [place] 10:07:08 [facility] 2021-12-12 Outpatient ELBA, [facility] [id number] [place] 15:49:45 [facility] 2021-09-22 Outpatient LANDEROS, [facility] [id number] [place] 14:26:36 [facility] 2020-04-16 [facility] [id number] [facility] 07:30:00 , Diana [address] [place] [address] [facility] 2022-09-11 2022-09-11 Outpatient AMBREEN_[facility]AR [facility] [address] [place] 00:00:00 00:00:00 HANA [id number] da [facility] 2022-08-22 2022-08-22 Outpatient R JOSEPH [facility] [id number] Univers 15:00:00 15:00:00 VICKIPORT WING ity [facility] 2022-05-12 2022-05-12 Orders Doctor NIELSEN [id number] Univers 00:00:00 00:00:00 Only Unassigned, [place] [id number] ity of [place] [facility] [id number] Florentino as [phone] [address] 2022-02-27 2022-02-27 Outpatient AM[facility]EN_[facility] [id number] [place] 11:00:00 11:00:00 HANA [id number] [facility] 2022-02-22 2022-02-22 Maritza Jimenez MIVIMAL [id number] Univers 00:00:00 00:00:00 [facility] [id number] [facility] [id number] Florentino as WEI?BLEA [phone] Tn dicvaughn ANTONIO [address] [facility] 2021-12-20 2021-12-20 Office CRISTIANA PRICE [facility] [id number] [place] 10:30:00 10:45:00 Visit AILYN MCKEON AND [id number] Health [place] [id number] MEDICAL [id number] [address] 2 2021-12-12 2021-12-12 Office Tigre [facility] [id number] [place] 15:00:00 15:23:42 Visit Lolly ORTHO AND [id number] Health [place] [id number] MEDICAL [id number] PLA[place] 2 2021-08-23 2021-08-23 [facility] [id number] Univers 09:30:00 09:30:00 [facility] 2021-08-02 2021-08-02 Out[facility] [id number] Univers 12:00:00 12:00:00 [facility] 2020-12-24 2020-12-24 Laboratory Lab, Adc Fam Pob I [facility] 1.2. [id number] [id number] Univers 15:27:51 15:47:51 Only Irina Hunter [facility] [id number] ity [facility] [id number] Florentino as Professio [phone] Tn chaol [address] Office Building One 2020-12-24 2020-12-24 Outpatient R JACQUELINE [facility] [id number] Univers 15:40:00 15:40:00 IRINA [facility] 2020-08-20 2020-08-20 Telephone [facility] [id number] 00:00:00 00:00:00 [place] [id number] [place] [id number] Professio [phone] critical access hospital 220 Building 2020-08-20 2020-08-20 Telephone [facility] [id number] Univers 00:00:00 00:00:00 Wentong [place] [id number] i ty of [id number] [phone] [address] 2020-08-19 2020-08-19 Telephone Jimenez, [facility] [id number] 00:00:00 00:00:00 [place] [id number] [place] [id number] Professio [phone] [address] 2020-08-19 2020-08-19 Telephone Jimenez, [facility] [id number] [facility] 00:00:00 00:00:00 [place] [id number] i ty of [id number] [phone] [address] 2020-08-09 2020-08-09 Orders Doctor NIELSEN 1.2.840.114 [id number] 00:00:00 00:00:00 Only Unassigned, DANYELL [id number] [place] [facility] [id number] [facility] 2020-08-09 2020-08-09 Orders Doctor NIELSEN 1.2.840.114 [id number] [facility] 00:00:00 00:00:00 Only Unassigned, DANYELL [id number] ity of [place] [facility] [id number] Florentino as [phone] [address] 2020-07-29 2020-07-29 Petrographer 2, Adc Lab [facility] 1.2.840.114 [id number] 09:40:34 09:55:34 Visit [place] [id number] [place] [id number] Professio [phone] [address] 2020-07-29 2020-07-29 Petrographer 2, Adc Lab [facility] 1.2.840.114 [id number] [facility] 09:40:34 09:55:34 Visit Blake Jimenez [place] [id number] ity of [id number] [phone] Me dical nal 353 [facility] 2020-07-29 2020-07-29 Outpatient R [facility] [id number] Univers 09:45:00 09:45:00 ity of [facility] 2020-07-28 2020-07-28 Outpatient R [facility] [id number] Univers 09:00:00 09:00:00 ity of [facility] 2020-07-28 2020-07-28 Orders Doctor GIA 1.2.840.114 [id number] 00:00:00 00:00:00 Only Unassigned, DANYELL [id number] [place] [facility] [id number] [id number] [id number] 2020-07-28 2020-07-28 Orders Doctor NIELSEN 1.2.840.114 [id number] Univers 00:00:00 00:00:00 Only Unassigned, DANYELL [id number] ity of [place] [facility] [id number] Florentino as [phone] [address] 2020-07-21 2020-07-21 Office [facility] 1.2.840.114 [id number] 13:35:42 14:12:35 Visit Blake [place] [id number] [place] [id number] Professio [phone] [address] 2020-07-21 2020-07-21 Office [facility] 1.2.840.114 [id number] Univers 13:35:42 14:12:35 Visit Blake [place] [id number] i ty of [id number] [phone] Me dical nal 220 [facility] 2020-07-21 2020-07-21 Outpatient [facility] [id number] Univers 13:30:00 13:30:00 WENTONG ity [facility] 2020-06-30 2020-06-30 Outpatient [facility] [id number] Univers 10:00:00 10:00:00 WENTONG ity [facility] 2020-06-25 2020-06-25 Letter GIA Diaz [id number] Univers 00:00:00 00:00:00 (Out) Dede CHILD [id number] it y of [facility] [id number] Florentino as [phone] [address] 2020-06-23 2020-06-23 Laboratory Lab, Adc Fam Pob I [facility] 1.2. 840.114 [id number] Univers 10:13:06 10:33:06 Only Irina Hunter [id number] ity of [place] [id number] Florentino as Professio [phone] [address] Office Building One 2020-06-23 2020-06-23 Outpatient R [facility] [id number] Univers 10:20:00 10:20:00 ity [facility] 2020-06-23 2020-06-23 Letter Doctor GIA 1.2.840.114 [id number] Univers 00:00:00 00:00:00 (Out) UnassDANYELL sam [id number] ity of [place] [facility] [id number] Florentino as [phone] [address] 2020-05-25 2020-05-25 Office [facility] 1.2.840.114 [id number] Univers 15:30:00 16:00:00 Visit Blake P[place] [id number] i ty of [id number] [phone] [facility] 220 [facility] 2020-05-25 2020-05-25 Outpatient [facility] [id number] Univers 15:30:00 15:30:00 [facility] DIVISIONONG ity [facility] 2020-04-20 2020-04-20 Telephone [facility] [id number] Univers 00:00:00 00:00:00 [facility] [id number] i [id number] [phone] [place] dicfl nal 220 [facility] 2020-04-14 2020-04-14 Petrographer Lin, Adc Lab Main [facility] 1.2.8 40.114 [id number] Univers 12:10:22 12:25:22 Visit Blake Jimenez [id number] [id number] [phone] Tn chalo nal 353 [facility] 2020-04-14 2020-04-14 Office [facility] 1.2.840.114 [id number] Univers 10:50:53 11:42:06 Visit Blake Serrano [id number] i [id number] [phone] Tn chalo white 220 [facility] 2020-04-14 2020-04-14 [facility] [id number] Univers 11:00:00 11:00:00 BLAKE ity [facility] 2020-04-13 2020-04-13 Outpatient UNKNOWN HCACL LABO [id number] [facility] 11:15:00 11:15:00 59 [facility] 2020-03-30 2020-03-30 Outpatient R JOSEPH [facility] [id number] Univers 15:00:00 15:00:00 BLAKE ity [facility] 2020-03-26 2020-03-26 Telephone [facility] [id number] Univers 00:00:00 00:00:00 Blake Serrano [id number] i [place] [phone] Tn chalo white 220 [facility] 2020-03-22 2020-03-22 Petrographer 2, Adc Lab [facility] 1.2.840.114 [id number] Univers 13:04:13 13:19:13 Visit Blake Jimenez 350.1.13.10 [place] [phone] Tn chalo [facility] 353 [facility] 2020-03-22 2020-03-22 Outpatient R [facility] [id number] Univers 13:15:00 13:15:00 ity [facility] 2020-03-22 2020-03-22 Telephone [facility] 1.2.320.334 [id number] Univers 00:00:00 00:00:00 Wentong [place] [id number] i [place] [phone] [address] 2020-02-25 2020-02-25 Outpatient R JOSEPH [facility] [id number] Univers 09:30:00 09:30:00 WENTONG ity of [facility] 2020-02-25 2020-02-25 Telemedici [facility] 1.2.840.114 [id number] Univers 08:11:13 08:41:13 ne Visit Wentong [place] 350.1.13.10 it[id number] [phone] [address] 2020-01-09 2020-01-09 Telephone [facility] 1.2.994.621 [id number] Univers 00:00:00 00:00:00 Wentong [place] 350.1.13.10 i ty [place] [phone] [address] 2019-12-24 2019-12-24 Telephone [facility] 1.2.883.280 [id number] Univers 00:00:00 00:00:00 Wentong [place] 350.1.13.10 i [place] [phone] [address] 2019-12-19 2019-12-19 Refill [facility] 1.2.840.114 [id number] Univers 00:00:00 00:00:00 Wentong [place] 350.1.13.10 i [place] [phone] [address] 2019-12-19 2019-12-19 Telephone [facility] 1.2.022.542 [id number] Univers 00:00:00 00:00:00 Wentong [place] 350.1.13.10 i [id number] [phone] Me dical nal 220 [facility] 2019-12-16 2019-12-16 Telephone Ijmenez, MIMB 1.2.031.302 [id number] Univers 00:00:00 00:00:00 Blake Serrano 350.1.13.10 i ty [place] [phone] Tn dicfl nal 220 [facility] 2019-12-11 2019-12-11 Outpatient AMBREEN_FAR [facility] 739 [place] 04:50:00 04:50:00 HANA 0210 [facility] 2019-12-04 2019-12-04 Telephone Jimenez, MIMB [id number] Univers 00:00:00 00:00:00 Blake Serrano 350.1.13.10 i ty [id number] [phone] [facility] 220 [facility] 2019-11-27 2019-11-27 Petrographer 2, Adc Lab [facility] 1.2.840.114 [id number] Univers 13:10:41 13:25:41 Visit Blake Jimenez 350.1.13.10 ity [place] [phone] [facility] 353 [facility] 2019-11-27 2019-11-27 Orders Doctor GIA 1.2.840.114 [id number] Univers 00:00:00 00:00:00 Only Unassigned, DANYELL 350.1.13.10 [facility] 4.2.7.2.686 Florentino as [phone] [address] 2019-04-17 2019-04-17 AppointCRISTIANA [facility] [id number] [place] 11:00:00 11:00:00 t; Ayo PEREIRA PMayra [facility] 2019-01-23 2019-01-23 AppointCRISTIANA [facility] UTP [id number] [place] 11:00:00 11:00:00 t; Jose PEREIRA P.ABenedict PEREIRA, P.ABenedict 2018-08-28 2018-08-28 Appointmen [place], [facility] [id number] [place] 12:45:00 12:45:00 t; LINDSEY ARREOLA Physi Janie Silverio M.D. 2018-08-14 2018-08-14 Appointmen ELBA, [facility] Orthopedics [id number] [place] 09:00:00 09:00:00 t; LINDSEY ARREOLA, Physi Janie Silverio M.D. 2018-08-07 2018-08-07 Appointmen [facility], [facility] [id number] [place] 11:00:00 11:00:00 t; LINDSEY ARREOLA Orthopedics Janie Andino M.D. 2018-07-31 2018-07-31 Appointmen TIGRE, [facility] [id number] 1 [place] 09:15:00 09:15:00 t; LOLLY LANDEROS P hysici DANIELLE, M.D. ans M.D. 2018-05-31 2018-05-31 [facility] [id number] [place] 11:00:00 11:00:00 t; JANA ANAYA at [facility] Janie BATES M.D. [facility] 2018-05-29 2018-05-29 [facility] [id number] 2 [place] 11:00:00 11:00:00 t; LOLLY LANDEROS P hysici DANIELLE, M.D. ans M.D. 2018-05-14 2018-05-14 [facility] JONATHAN[facility] [id number] [place] 09:30:00 09:30:00 t; Jose PEREIRA P.ABenedict PEREIRA, P.ABenedict 2018-05-03 2018-05-03 Appointmen JONATHAN, [facility] Orthopedics [id number] [place] 11:30:00 11:30:00 t; Jose PEREIRA P.ABenedict PEREIRA, P.ABenedict 2018-04-17 2018-04-17 [facility] [id number] [place] 08:30:00 08:30:00 t; LOLLY LANDEROS P hysici DANIELLE, M.D. ans M.Berta 2018-04-15 2018-04-15 Appointmen HÉCTOR, [facility] [id number] [place] 14:45:00 14:45:00 t; JANA ANAYA Ortho and Delfino BATES M.D. Spine S gomez [facility] 2018-03-04 2018-03-04 Appointmen MARCO, [facility] [id number] [place] 11:00:00 11:00:00 t; MIGUELINA LARA, DIMENSION SPECIFICATION INSPECTOR Phy sici MIGUELINA, DIMENSION SPECIFICATION INSPECTOR ans 2018-02-01 2018-02-01 Appointmen GUSTAVO, [facility] [id number] [place] 11:15:00 11:15:00 t; CJ CHEN PA Physici DENISE, PA ans 2017-12-14 2017-12-14 Appointmen GUSTAVO, [facility] [id number] [place] 10:30:00 10:30:00 t; CJ CHEN PA Physici DENISE, PA ans 2017-11-28 2017-11-28 Appointmen ELBA, [facility] [id number] [place] 14:00:00 14:00:00 t; LINDSEY ARREOLA Physi ci ANDREW, M.D. ans M.DBenedict 2017-06-20 2017-06-20 Appointmen LANDEROS, [facility] [id number] [place] 09:30:00 09:30:00 t; LOLLY LANDEROS P hysici DANIELLE, M.D. ans M.DBenedict 2017-05-11 2017-05-11 Appointmen SHREYAS, [facility] UTP [id number] [place] 09:00:00 09:00:00 t; IRENE PRITCHETT M.D. Physici BINH, M.D. ans 2017-04-24 2017-04-24 Appointmen TIGRE, [facility] [id number] [place] 10:45:00 10:45:00 t; LOLLY LANDEROS P hysici DANIELLE, M.D. ans MTravis 2017-04-04 2017-04-04 Appointmen MARINO [facility] UTP [id number] [place] 11:00:00 11:00:00 t; Carey RICHMOND M.D. ans GABRIELA, M.D. 2017-02-27 2017-02-27 Appointmen TIGRE, [facility] UTP [id number] [place] 08:45:00 08:45:00 t; LOLLY LANDEROS P hysici DANIELLE, M.D. ans MTravis 2017-02-20 2017-02-20 Appointmen TIGRE, [facility] UTP [id number] [place] 09:00:00 09:00:00 t; LOLLY LANDEROS P hysici DANIELLE, M.D. ans MTravis 2017-02-13 2017-02-13 Appointmen TIGRE, [facility] UTP [id number] [place] 08:45:00 08:45:00 t; LOLLY LANDEROS P hysici DANIELLE, M.D. ans MTravis 2016-12-27 2016-12-27 [facility] [place]BA, [facility] UTP [id number] [place] 12:45:00 12:45:00 t; LINDSEY ARREOLA, Physi Janie Silverio M.D. 2016-12-20 2016-12-20 [facility] [place], [facility] UTP [id number] [place] 10:45:00 10:45:00 t; LINDSEY ARREOLA, Physi Janie Silverio M.D. 2016-12-13 2016-12-13 [facility] ELBA, [facility] UTP [id number] 1 [place] 12:30:00 12:30:00 t; LINDSEY ARREOLA, Physi Janie Silverio M.D. 2016-12-13 2016-12-13 [facility] KATIE, [facility] UTP [id number] 2 [place] 09:30:00 09:30:00 t; EMIR WILSON, Ph Janie Thompson MTravis 2016-11-29 2016-11-29 Appointmen MARCO, [facility] UTP [id number] 1 [place] 11:30:00 11:30:00 t; MIGUELINA LARA, PALMA Phy PALMA Jauregui 2016-11-28 2016-11-28 Appointmen SANJUANA, [facility] UTP [id number] [place] 15:00:00 15:00:00 t; WEI, TAMMI, gomez Peck M.D. 2012-12-05 2012-12-05 [facility] [id number] Univers 00:00:00 10:18:00 7 ity of [facility] 2012-08-01 2012-08-01 Outpatient [facility] [id number] Univers 00:00:00 11:48:00 7 ity of [facility] 2012-04-26 2012-04-26 [facility]patient [facility] [id number] Univers 00:00:00 11:47:00 3 ity of [facility] 2011-11-21 2011-11-21 Outpatient [facility] [id number] Univers 00:00:00 14:02:00 6 ity of [facility] 2011-08-08 2011-08-08 Outpatient [facility] [id number] Univers 00:00:00 14:46:00 6 ity of [facility] 2011-06-08 2011-06-08 Outpatient [facility] [id number] Univers 00:00:00 16:31:00 2 ity of [facility] 2011-04-19 2011-04-19 Outpatient [facility] [id number] Univers 00:00:00 14:59:00 6 ity of [facility] 2011-01-25 2011-01-25 Outpatient [facility] [id number] Univers 00:00:00 13:47:00 1 ity of [facility] 2010-05-31 2010-05-31 Outpatient [facility] [id number] Univers 00:00:00 10:37:00 0 ity of [facility] 2010-04-12 2010-04-12 Outpatient [facility] [id number] Univers 00:00:00 16:35:00 6 ity of [facility] 2010-03-31 2010-03-31 Outpatient [facility] [id number] Univers 00:00:00 12:04:00 6 ity of [facility] 2010-03-03 2010-03-03 Outpatient [facility] [id number] Univers 00:00:00 09:58:00 3 ity of [facility] 2010-01-24 2010-01-24 Outpatient [facility] [id number] Univers 00:00:00 11:41:00 8 ity of [facility] 2009-11-25 2009-11-25 Outpatient [facility] [id number] Univers 00:00:00 11:16:00 0 [facility] 2009-10-26 2009-10-26 Outpatient [facility] [id number] Univers 00:00:00 11:07:00 3 [facility] 2009-01-25 2009-01-25 Outpatient [facility] [id number] Univers 00:00:00 13:04:00 6 [facility] 2009-01-20 2009-01-20 Outpatient [facility] [id number] Univers 00:00:00 14:25:00 4 [facility] 2008-06-02 2008-06-02 Outpatient [facility] [id number] Univers 00:00:00 16:42:00 0 [facility] 2007-07-22 2007-07-22 Outpatient [facility] [id number] Univers 00:00:00 14:29:00 0 [facility] 2007-05-07 2007-05-07 Outpatient [facility] [id number] Univers 00:00:00 15:39:00 2 [facility] Results Test Description Test Time Test Comments Results Result Comments Source SARS-CoV-2 (COVID-19), RT-PCR/TMA 2021-11-27 15:43:57 Test Item Value Reference Range Interpretation Comme nts SARS-CoV-2 INTERPRETATION POSITIVE SEE NOTE A S ARS-CoV-2 RNA DETECTEDPositive (test code = 12994) results are indicative of the presence of CHELLE S-CoV-2 RNA;clinical co rrelation with patient history and other diagnosticinfor mation is necessary to de termine patient infection statu s.Positive results do not rule out bacterial infection or co -infectionwith other viruses. Positive and negative predic tive values oftesting are h ighly dependent on prevalence. SOURCE (test code = 61741) NASOPHARYNGEAL Note: Methodology is Soham Tyrone Real-Time [...] are provided by method given in report:https:// www.[employer]/cl inicians/client -communications/ Alternatively, see downloadable PDF fact sheet at:https://www. [employer]/COVID- 19-RT-PCR UNLES S OTHERWISE INDICATED, ALL TESTING PERFORMED [facility] [place] [address] 4 QUALITY COMPLIANCE COORDINATOR: DENICE BENTON M.D. CLIA NUMBER [id number] CAP ACCREDITATION N O. [id number] 10:33:00 Test Item Value Reference Range Interpretation Comments GLUBED (test code = GLUBED) 91 MG/DL 70-105 N Novel Coronavirus 2019 [id number] 20:31:00 Test Item Value Reference Range Interpretation Comments Novel Coronavirus 2019 Inhouse (test Negative Negative code = COVNONPUI) Testing Criteria: Preprocedure ScreeningNovel Coronavirus 2019 [id number] 20:31:00 Test Item Value Reference Range Interpretation Comments Novel Coronavirus 2019 Inhouse (test Negative Negative code = COVNONPUI) Testing Criteria: Preprocedure [id number] 11:15:00 Test Item Value Reference Range Interpretation Comments HEMOGLOBIN (test code = HGB) 16.8 g/dL 14.5-20 N [id number] 11:15:00 Test Item Value Reference Range Interpretation Comments HEMATOCRIT (test code = HCT) 52.1 % 42.0-52.0 H BLOOD [id number] 08:01:00 Test Item Value Reference Range Interpretation Comments CULTURE (BEAKER) (test No growth in 5 days code = 1095) BLOOD [id number] 08:01:00 Test Item Value Reference Range Interpretation Comments CULTURE (BEAKER) (test No growth in 5 days code = 1095) BASIC METABOLIC [id number] 06:08:00 Test Item Value Reference Range Interpretation [...] PATIEN TS. CBC W/PLT COUNT & AUTO [id number] 07:49:00 Test Item Value Reference Range Interpretation [...] Received comment: User comments: Slide comments:BASIC METABOLIC [id number] 05:04:00 Test Item Value Reference Range Interpretation [...] PATIEN TS. CBC W/PLT COUNT & AUTO [id number] 09:25:00 Test Item Value Reference Range Interpretation [...] WBC: SEGMENTED WITH TOXIC GRANULATIONS PRESENTBASIC METABOLIC [id number] 04:47:00 Test Item Value Reference Range Interpretation [...] DIALYSIS PATIEN TS. URINALYSIS W/ REFLEX URINE [id number] 12:15:00 Test Item Value Reference Range Interpretation [...] = 2795) CBC W/PLT COUNT & AUTO [id number] 08:39:00 Test Item Value Reference Range Interpretation [...] Received comment: User comments: Slide comments:BASIC METABOLIC [id number] 05:58:00 Test Item Value Reference Range Interpretation [...] I S NOT APPLICABLE FOR DIALYSIS PATIEN RAD, HIP, 2 VIEWS, [id number] 01:46:00Reason for exam:->total hip arthoplasty with persistent [...] scan or MRI is recommended. Signed: Sabra Snydereport Verified Date/Time: 07/13/2019 01: 46:35 Reading Location: [address] Reading Room RAD, KNEE, 3 VIEWS, [...] or MRI is recommended. Signed: Sabra Snyder [facility] Verified Date/Time: 07/13/2019 01:45:04 Reading Location: [address] Reading Room RAD, KNEE, 3 VIEWS, [id number] 01:43:00 Reason for exam:->leukocytosisFINAL REPORT CLINICAL HISTORY: [...] MDReport Verified Date/Time: 07/13/2019 01:43:49 Reading Location: [address] Reading Room RAD, CHEST, 1 VIEW, NON [id number] 01:42:00Reason for exam:->leukocytosisShould this be performed at [...] the right upper quadrant. Signed: Sabra Snyder MDReport Verified Date/Time: 07/13/2019 01:42:05 Reading Location: [address] Reading Room RAD, HIP, 2 VIEWS, [id number] 01:40:00Reason for exam:->total hip arthoplasty with persistent [...] pelvis and left leg. Signed: Sabra Snyder MDReport Verified Date/Time: 07/13/2019 01:40:58 Reading Location: [address] Reading Room CBC W/PLT COUNT & AUTO [id number] 10:58:00 Test Item Value Reference Range Interpretation [...] 3438) Received comment: User comments: Slide comments:BLOOD [id number] 08:01:00 Test Item Value Reference Range Interpretation Comments CULTURE (BEAKER) (test No growth in 5 days code = 1095) BLOOD [id number] 08:01:00 Test Item Value Reference Range Interpretation Comments CULTURE (BEAKER) (test No growth in 5 days code = 1095) BASIC METABOLIC [id number] 05:59:00 Test Item Value Reference Range Interpretation [...] PATIEN TS. CBC W/PLT COUNT & AUTO [id number] 11:34:00 Test Item Value Reference Range Interpretation [...] = 3438) Received comment: User comments: Slide comments:[id number] 06:55:00 Test Item Value Reference Range Interpretation Comments PROCALCITONIN (BEAKER) (test code 0.61 ng/mL <0.05 H = 3036) SEPSIS RISK (ng/mL)Low: 0.05-0.50Intermediate: 0.51-2.00High: >=2.01BASIC METABOLIC [id number] 06:43:00 Test Item Value Reference Range Interpretation [...] S NOT APPLICABLE FOR DIALYSIS PATIEN TS. [id number] 06:36:00 Test Item Value Reference Range Interpretation Comments MAGNESIUM (BEAKER) (test code = 2.0 mg/dL 1.6-2.6 627) [id number] 06:36:00 Test Item Value Reference Range Interpretation Comments ALBUMIN (BEAKER) (test code = 1145) 2.3 g/dL 3.5-5.0 L CALCIUM, [id number] 05:32:00 Test Item Value Reference Range Interpretation Comments CALCIUM IONIZED (BEAKER) (test 1.09 mmol/L 1.12-1.27 L code = 698) PH, BLOOD (BEAKER) (test code = 7.42 1810) [id number] 13:34:00 Test Item Value Reference Range Interpretation Comments POTASSIUM (BEAKER) (test code = 3.6 meq/L 3.5-5.1 379) HEMOGLOBIN AND [id number] 12:50:00 Test Item Value Reference Range Interpretation Comments HEMOGLOBIN (BEAKER) (test code = 9.1 GM/DL 13.7-17.5 L 410) HEMATOCRIT (BEAKER) (test code = 29.0 % 40.1-51.0 L 411) MRSA [id number] 11:38:00 Test Item Value Reference Range Interpretation Comments CULTURE (BEAKER) (test code No MRSA isolated = 1095) POCT-GLUCOSE [id number] 06:38:00 Test Item Value Reference Range Interpretation Comments POC-GLUCOSE METER 134 mg/dL 70-[address] [facility] 6720 (BEAKER) (test code = [place] 1538) [address] BASIC METABOLIC [id number] 05:06:00 Test Item Value Reference Range Interpretation [...] S NOT APPLICABLE FOR DIALYSIS PATIEN TS. [id number] 05:02:00 Test Item Value Reference Range Interpretation Comments MAGNESIUM (BEAKER) (test code = 2.0 mg/dL 1.6-2.6 627) CBC W/PLT COUNT & AUTO [id number] 04:53:00 Test Item Value Reference Range Interpretation [...] PERCENT (BEAKER) (test code = 2801) POCT-GLUCOSE [id number] 00:09:00 Test Item Value Reference Range Interpretation Comments POC-GLUCOSE METER 181 mg/dL 70-[address] [facility] 6720 (BEAKER) (test code = [place] 1538) [id number] POCT-GLUCOSE [id number] 19:24:00 Test Item Value Reference Range Interpretation Comments POC-GLUCOSE METER 121 mg/dL 70-[address] [facility] 6720 (BEAKER) (test code = [place] 1538) [address] LACTIC ACID, [id number] 16:46:00 Test Item Value Reference Range Interpretation Comments LACTATE BLOOD VENOUS (2) (BEAKER) 1.9 mmol/L 0.5-2.2 (test code = 2872) HEMOGLOBIN AND [id number] 16:36:00 Test Item Value Reference Range Interpretation Comments HEMOGLOBIN (BEAKER) (test code = 8.0 GM/DL 13.7-17.5 L 410) HEMATOCRIT (BEAKER) (test code = 24.5 % 40.1-51.0 L 411) CBC W/PLT COUNT & AUTO [id number] 16:02:00 Test Item Value Reference Range Interpretation [...] (BEAKER) (test code = 2801) BASIC METABOLIC [id number] 12:32:00 Test Item Value Reference Range Interpretation [...] NOT APPLICABLE FOR DIALYSIS PATIEN TS. POCT-GLUCOSE [id number] 12:08:00 Test Item Value Reference Range Interpretation Comments POC-GLUCOSE METER 175 mg/dL 70-[address] [facility] 6720 (BEAKER) (test code = [place] 1538) [address] HEMOGLOBIN AND [id number] 12:07:00 Test Item Value Reference Range Interpretation Comments HEMOGLOBIN (BEAKER) (test code = 8.5 GM/DL 13.7-17.5 L 410) HEMATOCRIT (BEAKER) (test code = 26.4 % 40.1-51.0 L 411) [id number] 11:16:00 Test Item Value Reference Range Interpretation Comments MAGNESIUM (BEAKER) (test code = 2.3 mg/dL 1.6-2.6 627) BASIC METABOLIC [id number] 10:18:00 Test Item Value Reference Range Interpretation [...] APPLICABLE FOR DIALYSIS PATIEN TS. VANCOMYCIN LEVEL, [id number] 10:14:00 Test Item Value Reference Range Interpretation [...] (BEAKER) (test code = 413) HEMOGLOBIN AND [id number] 08:10:00 Test Item Value Reference Range Interpretation Comments HEMOGLOBIN (BEAKER) (test code = 7.9 GM/DL 13.7-17.5 L 410) HEMATOCRIT (BEAKER) (test code = 24.3 % 40.1-51.0 L 411) POCT-GLUCOSE [id number] 05:56:00 Test Item Value Reference Range Interpretation Comments POC-GLUCOSE METER 113 mg/dL 70-[address] [facility] 6720 (BEAKER) (test code = [place] 1538) [address] BASIC METABOLIC [id number] 04:31:00 Test Item Value Reference Range Interpretation [...] S NOT APPLICABLE FOR DIALYSIS PATIEN TS. [id number] 04:21:00 Test Item Value Reference Range Interpretation Comments MAGNESIUM (BEAKER) (test code = 2.2 mg/dL 1.6-2.6 627) CBC W/PLT COUNT & AUTO [id number] 04:07:00 Test Item Value Reference Range Interpretation [...] PERCENT (BEAKER) (test code = 2801) CALCIUM, [id number] 04:00:00 Test Item Value Reference Range Interpretation Comments CALCIUM IONIZED (BEAKER) (test 1.04 mmol/L 1.12-1.27 L code = 698) PH, BLOOD (BEAKER) (test code = 7.40 1810) HEMOGLOBIN AND [id number] 00:26:00 Test Item Value Reference Range Interpretation Comments HEMOGLOBIN (BEAKER) (test code = 7.6 GM/DL 13.7-17.5 L 410) HEMATOCRIT (BEAKER) (test code = 23.0 % 40.1-51.0 L 411) POCT-GLUCOSE [id number] 00:20:00 Test Item Value Reference Range Interpretation Comments POC-GLUCOSE METER 117 mg/dL 70-[address] [facility] 6720 (BEAKER) (test code = WILLEM DIGGS 1538) [address] CT, [id number] 19:35:00FINAL REPORT TECHNIQUE: CT of the abdomen [...] 07/08/2019 at 7:21 PM. Signed: Gustabo Whyte Verified Date/Time: 07/08/2019 19:35:04 Reading Location: [facility] C013Y CT Body Reading Room POCT-GLUCOSE [id number] 17:58:00 Test Item Value Reference Range Interpretation Comments POC-GLUCOSE METER 121 mg/dL 70-[address] [facility] 6720 (BEAKER) (test [facility] = [facility] 1538) [address] HEMOGLOBIN AND [id number] 16:32:00 Test Item Value Reference Range Interpretation Comments HEMOGLOBIN (BEAKER) (test code = 7.5 GM/DL 13.7-17.5 L 410) HEMATOCRIT (BEAKER) (test code = 22.9 % 40.1-51.0 L 411) POCT-GLUCOSE [id number] 12:03:00 Test Item Value Reference Range Interpretation Comments POC-GLUCOSE METER 93 mg/dL 70-[address] [facility] 6720 (BEAKER) (test code = WILLEM Hubbard [facility] [address] 1538) BASIC METABOLIC [id number] 10:27:00 Test Item Value Reference Range Interpretation [...] S NOT APPLICABLE FOR DIALYSIS PATIEN TS. [id number] 10:16:00 Test Item Value Reference Range Interpretation Comments MAGNESIUM (BEAKER) (test code = 1.4 mg/dL 1.6-2.6 L 627) CALCIUM, [id number] 09:50:00 Test Item Value Reference Range Interpretation Comments CALCIUM IONIZED (BEAKER) (test 1.06 mmol/L 1.12-1.27 L code = 698) PH, BLOOD (BEAKER) (test code = 7.47 1810) CBC W/PLT COUNT & AUTO [id number] 09:11:00 Test Item Value Reference Range Interpretation [...] 3438) Received comment: User comments: Slide comments:POCT-GLUCOSE [id number] 06:28:00 Test Item Value Reference Range Interpretation Comments POC-GLUCOSE METER 108 mg/dL 70-[address] [facility] 6720 (BEAKER) (test code = [place]IG[place] 1538) [address] POCT-GLUCOSE [id number] 05:09:00 Test Item Value Reference Range Interpretation Comments POC-GLUCOSE METER 82 mg/dL 70-[address] [facility] 6720 (BEAKER) (test code = [place] [address] 1538) [id number] 04:07:00 Test Item Value Reference Range Interpretation Comments FERRITIN (BEAKER) (test code = 361) 154 ng/mL 5-275 BASIC METABOLIC [id number] 03:53:00 Test Item Value Reference Range Interpretation [...] APPLICABLE FOR DIALYSIS PATIEN TS. HEPATIC FUNCTION [id number] 03:51:00 Test Item Value Reference Range Interpretation [...] = 9 U/L 6-55 347) LACTIC ACID, [id number] 03:48:00 Test Item Value Reference Range Interpretation Comments LACTATE BLOOD ARTERIAL (2) 0.8 mmol/L 0.5-2.2 (BEAKER) (test code = 2874) PROTHROMBIN [id number] 03:43:00 Test Item Value Reference Range Interpretation [...] for patients wiht mechanical heart valves.HEMOGLOBIN AND [id number] 03:32:00 Test Item Value Reference Range Interpretation Comments HEMOGLOBIN (BEAKER) (test code = 8.1 GM/DL 13.7-17.5 L 410) HEMATOCRIT (BEAKER) (test code = 24.3 % 40.1-51.0 L 411) HEMOGLOBIN AND [id number] 22:53:00 Test Item Value Reference Range Interpretation Comments HEMOGLOBIN (BEAKER) (test code = 7.9 GM/DL 13.7-17.5 L 410) HEMATOCRIT (BEAKER) (test code = 23.8 % 40.1-51.0 L 411) [id number] 19:45:00 Test Item Value Reference Range Interpretation [...] 2.5-3.5 for patients wiht mechanical heart valves.POCT-GLUCOSE [id number] 19:33:00 Test Item Value Reference Range Interpretation Comments POC-GLUCOSE METER 101 mg/dL 70-[address] [facility] 6720 ([facility]) (test code = [place]IG[place] 1538) [address] CALCIUM, [id number] 18:17:00 Test Item Value Reference Range Interpretation Comments CALCIUM IONIZED (BEAKER) (test 1.08 mmol/L 1.12-1.27 L code = 698) PH, BLOOD (BEAKER) (test code = 7.37 1810) BLOOD GAS, [id number] 18:15:00 Test Item Value Reference Range Interpretation [...] (test code = 1819) 100.0 % POTASSIUM-STAT [id number] 18:15:00 Test Item Value Reference Range Interpretation Comments POTASSIUM (BEAKER) (test code = 3.3 meq/L 3.6-5.5 L 379) GLUCOSE-STAT [id number] 18:15:00 Test Item Value Reference Range Interpretation Comments GLUCOSE RANDOM (BEAKER) (test code 138 mg/dL 70-110 H = 652) HGB/HCT (H&H) - STAT [id number] 18:15:00 Test Item Value Reference Range Interpretation Comments HEMOGLOBIN (BEAKER) (test code = 8.7 g/dL 13.0-16.8 L 410) HEMATOCRIT (BEAKER) (test code = 26.0 % 40.0-50.0 L 411) SODIUM NA-STAT [id number] 18:13:00 Test Item Value Reference Range Interpretation Comments SODIUM (BEAKER) (test code = 381) 137 meq/L 135-148 LACTIC ACID, [id number] 16:40:00 Test Item Value Reference Range Interpretation Comments LACTATE BLOOD ARTERIAL (2) 1.4 mmol/L 0.5-2.2 (BEAKER) (test code = 5608) HEMOGLOBIN AND [id number] 16:24:00 Test Item Value Reference Range Interpretation Comments HEMOGLOBIN (BEAKER) (test code = 7.5 GM/DL 13.7-17.5 L 410) HEMATOCRIT (BEAKER) (test code = 22.6 % 40.1-51.0 L 411) HGB/HCT (H&H) - STAT [id number] 15:47:00 Test Item Value Reference Range Interpretation Comments HEMOGLOBIN (BEAKER) (test code = 9.1 g/dL 13.0-16.8 L 410) HEMATOCRIT (BEAKER) (test code = 27.0 % 40.0-50.0 L 411) BLOOD GAS, [id number] 12:36:00 Test Item Value Reference Range Interpretation [...] (BEAKER) (test code = 1819) 21.0 % [id number] 12:32:00 Test Item Value Reference Range Interpretation Comments MAGNESIUM (BEAKER) 1.7 mg/dL 1.6-2.6 Specimen slightly (test code = 627) hemolyzed POTASSIUM-STAT [id number] 12:31:00 Test Item Value Reference Range Interpretation Comments POTASSIUM (BEAKER) (test code = 3.2 meq/L 3.6-5.5 L 379) HGB/HCT (H&H) - STAT [id number] 12:31:00 Test Item Value Reference Range Interpretation Comments HEMOGLOBIN (BEAKER) (test code = 9.7 g/dL 13.0-16.8 L 410) HEMATOCRIT (BEAKER) (test code = 29.0 % 40.0-50.0 L 411) GLUCOSE-STAT [id number] 12:29:00 Test Item Value Reference Range Interpretation Comments GLUCOSE RANDOM (BEAKER) (test code 100 mg/dL 70-110 = 652) SODIUM NA-STAT [id number] 12:29:00 Test Item Value Reference Range Interpretation Comments SODIUM (BEAKER) (test code = 381) 136 meq/L 135-148 POCT-GLUCOSE [id number] 11:50:00 Test Item Value Reference Range Interpretation Comments POC-GLUCOSE METER 88 mg/dL 70-[address] [facility] 6720 (BEAKER) (test code = [place] [address] 2088) BASIC METABOLIC [id number] 09:48:00 Test Item Value Reference Range Interpretation [...] PATIEN TS. CBC W/PLT COUNT & AUTO [id number] 09:44:00 Test Item Value Reference Range Interpretation [...] after transfusion completedUser comments: Slide comments:HEPATIC FUNCTION [id number] 07:43:00 Test Item Value Reference Range Interpretation [...] code = 11 U/L 6-55 347) PROTHROMBIN [id number] 07:33:00 Test Item Value Reference Range Interpretation [...] patients wiht mechanical heart valves.VITAMIN B12 AND [id number] 07:27:00 Test Item Value Reference Range Interpretation Comments VITAMIN B12 (BEAKER) (test code = 290 pg/mL 213-816 774) FOLATE (BEAKER) (test code = 362) 11.1 ng/mL >=7.0 POCT-GLUCOSE [id number] 06:09:00 Test Item Value Reference Range Interpretation Comments POC-GLUCOSE METER 89 mg/dL 70-[address] [facility] 6720 (BEAKER) (test code = [place] [address] 1538) RAD, CHEST, 1 VIEW, NON [id number] 04:21:00Reason for exam:- >leucocytosisShould this be performed [...] code = 2590) URINALYSIS WITH MICROSCOPIC IF [id number] 01:48:00 Test Item Value Reference Range Interpretation [...] = 463) SOURCE(BEAKER) (test code = 2795) [id number] 01:24:00 Test Item Value Reference Range Interpretation Comments POC-HEMOGLOBIN 5.4 g/dL 13.0-16.8 LL TESTED AT [facility] 67 (BEAKER) (test code = [place] 18[address]) [id number] AT [place] [address] [place] [address] POCT-BLOOD GASES, [id number] 01:23:00 Test Item Value Reference Range Interpretation Comments TEMP, CELSIUS-POC 36.1 (BEAKER) (test code = 1834) FIO2-POC (BEAKER) 21 TESTED AT [place] [address] (test code = 1835) [place] [facility] [place] [address] PH, VENOUS-POC 7.392 7.320-7.420 (BEAKER) (test code [...] -2.0-3.0 VENOUS-POC (BEAKER) (test code = 1847) [id number] 01:23:00 Test Item Value Reference Range Interpretation Comments POC-SODIUM (BEAKER) 141 meq/L 135-148 TESTED A T [place] [address] (test code = 1542) [place] [facility] [place] [address] [id number] 01:23:00 Test Item Value Reference Range Interpretation Comments POC-POTASSIUM 3.1 meq/L 3.6-5.5 L TESTED AT [place] [id number] ([facility]) (test code [facility] [address] = 1540) [id number] 01:23:00 Test Item Value Reference Range Interpretation Comments POC-GLUCOSE ([facility]) 100 mg/dL 70-110 TESTED AT [place] [address] (test code = 1855) [facility] [address] POCT-CALCIUM [id number] 01:23:00 Test Item Value Reference Range Interpretation Comments POC-CALCIUM IONIZED 1.13 mmol/L 1.12-1.27 TESTED A T [place] [address] ([facility]) (test code = [facility] 1536) [address] [id number] 01:23:00 Test Item Value Reference Range Interpretation Comments POC-HEMATOCRIT 16 % 40-50 L TESTED AT [place] [address] ([facility]) (test code = [facility] [address] 1857) C-REACTIVE [id number] 01:07:00 Test Item Value Reference Range Interpretation Comments C-REACTIVE PROTEIN ([facility]) (test 7.02 mg/dL 0.00-0.50 H code = 676) LACTIC ACID, [id number] 01:05:00 Test Item Value Reference Range Interpretation Comments LACTATE BLOOD VENOUS (2) ([facility]) 1.4 mmol/L 0.5-2.2 (test code = 2872) POCT-GLUCOSE [id number] 01:02:00 Test Item Value Reference Range Interpretation Comments POC-GLUCOSE METER 125 mg/dL 70-110 H TESTED AT [place] [address] ([facility]) (test code = [facility] 1538) [address] POCT-GLUCOSE [id number] 23:36:00 Test Item Value Reference Range Interpretation Comments POC-GLUCOSE METER 189 mg/dL 70-110 H TESTED AT [place] [address] ([facility]) (test code = [facility] 1538) [address] (CELLAVISION MANUAL DIFF)2019-07-06 21:36:00 Test Item Value [...] Received comment: User comments: Slide comments:BASIC METABOLIC [id number] 21:31:00 Test Item Value Reference Range Interpretation [...] PATIEN TS. CBC W/PLT COUNT & AUTO [id number] 21:27:00 Test Item Value Reference Range Interpretation [...] (BEAKER) (test code = 413) HEPATIC FUNCTION [id number] 21:26:00 Test Item Value Reference Range Interpretation [...] code = 11 U/L 6-55 347) PROTHROMBIN [id number] 21:18:00 Test Item Value Reference Range Interpretation [...] is 2.5-3.5 for patients wiht mechanical heart valves.[[facility]] CMP [id number] 13:50:01 Test Item Value Reference Range Interpretation Comments Sodium Level 138 {mEq/l} 135-145 (test code = 2951-2) Potassium Level 3.7 {mEq/l} 3.5-5.1 (test code = 2823-3) Chloride Level 103 {mEq/l} 95-109 (test code = 5-0) Carbon Dioxide 27 {mEq/l} 24-32 (test code = 2027-9) AGAP (test code = 11.7 {mEq/l} 10.0-20.0 73283-6) Glucose Lvl; 53 mg/dl 70-99 Adult reference range Below Low values reflect the Threshold (test clinical nate delinesof the code = 2345-7) [place] [employer]. Creatinine Lvl 0.70 mg/dl [...] g/dl 2.7-4.2 High Threshold (test code = 39365-3) A/G Ratio; Below 0.6 0.7-1.6 Low Threshold (test code = 1759-0) Calcium Level 8.7 mg/dl 8.5-10.5 Total (test code = 78486-0) ALT (test code = 35 u/l 0-65 1743-4) AST (test code = 16 u/l 0-37 30615-0) Alk Phos (test 117 u/l 39-136 code = 1783-0) Bili Total (test 0.5 mg/dl 0.2-1.3 code = 1974-2) eGFR (test code = 108 The eGFR i s calculated 39895-0) {ML/MIN/1.7} using the CKD-E PI formula. In [...] be multiplied by t he estimated BMI. [facility][QL] [id number] 13:50:01 Test Item Value Reference Range Interpretation Comments Magnesium Level (test code = 2.2 mg/dl 1.8-2.4 76274-8) [facility]] PHOSPHATE ( PHOSPHORUS)2019-04-17 13:50:01 Test Item Value Reference Range Interpretation Comments Phosphorus Level; Below Low 2.2 mg/dl 2.5-4.5 Threshold (test code = 2777-1) [facility][QL] TSH, 3RD GENERATION W/REFLEX TO [id number] 13:50:01 Test Item Value Reference Range Interpretation Comments TSH (test code = 39636-2) 0.993 {uIU/ml} 0.360-3.740 [facility][QLH] PTH, INTACT (WITHOUT CALCIUM)2019-04-17 13:50:01 Test Item Value Reference Range Interpretation Comments Parathyroid Hormone Intact; Above 85.6 pg/ml 18.4-80.1 High Threshold (test code = 2731-8) [facility][QLH] VITAMIN D, 25-HYDROXY, LC/MS/[id number] 13:50:01 Test Item Value Reference Range Interpretation Comments Vitamin D, 25-OH, 25.5 ng/ml 30.0-100.0 Reference range is based Total (test code on recommen dations in the = Vitamin D, EndocrineSociet y Clinical 25-OH, Total) Practice Guide line (J Clin Endocrinol Acyow8123;96:19 11-1930) [facility][H] Procollagen Type I Intact N Terminal [id number] 13:50:01 Test Item Value Reference Range Interpretation Comments Procollagen Type I 52 {UG/L} 22-87 Performed At: [facility] Intact N Terminal Pro [facility] (test code = Qwzymrdbpt65[address] [place] Procollagen Type I [place], [place] Intact N Terminal Pro) [address] 3[address]Namattie Mejia MD Ph:[phone] [facility][QH] [id number] 13:35:01 Test Item Value Reference Range Interpretation Comments Calcium Level Total Cancel Reason: System (test code = 18627-6) Cancel [facility][H] Misc [id number] 13:35:01 Test Item Value Reference Range Interpretation Comments Misc [facility] (test COMMENT Test Orde red: 252018 code = Misc [facility]) C-Telop eptide, SerumC-Telopept villa, Serum 491 pg/mL ESRe ference Range:38 - 724P erformed At: HD [facility] [address] [place], [place] [id number] Kyle L MD Ph:[phone] rformed At: ES [facility] [address] [place], [place] [id number] ashley Hansen MD Ph:[phone] [facility][U] XRAY KNEE 4 OR MORE VWS BILATERAL [id number] 14:38:00 Images acquired, not reported on this accession number.[facility]
--- NOTE | 2022-09-22 17:42 | ER ---
Nurse's Notes [facility] Name: Nabor Barrow Jr Age: 57 yrs Sex: Male : 1965 Arrival Date: 09/22/2022 Time: 13:51 Bed 10 Private MD: Diagnosis: Laceration of the Right Arm Presentation: 09/22 15:33 Chief complaint: Patient states: Yesterday was leaving out the front door at home and vg1 got too close to it in wheelchair and "something" was sticking out and cut Right upper arm. Stated is unable to keep it from bleeding. Denies blood thinners. Coronavirus screen: Vaccine status: Patient reports receiving the 2nd dose of the covid vaccine. Client denies travel out of the [place] in the last 14 days. Ebola Screen: Patient negative for fever greater than or equal to 101.5 degrees Fahrenheit, and additional compatible Ebola Virus Disease symptoms. Complicating Factors: There are no complicating factors for this patient. Initial Sepsis Screen: Does the patient meet any 2 criteria? No. Patient's initial sepsis screen is negative. Does the patient have a suspected source of infection? No. Patient's initial sepsis screen is negative. Risk Assessment: Do you want to hurt yourself or someone else? Patient reports no desire to harm self or others. Onset of symptoms was September 21, 2022. 15:33 Method Of Arrival: Wheelchair vg1 15:33 Acuity: INNA 3 vg1 Triage Assessment: 15:39 General: Appears uncomfortable, Behavior is calm, cooperative. Pain: Complains of pain vg1 in right bicep Pain currently is 6 out of 10 on a pain scale. Quality of pain is described as throbbing. Injury Description: Laceration sustained to right bicep. 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 - Social history:: Smoking status: Patient denies any tobacco usage or history of. Screenin:11 Abuse screen: Denies threats or abuse. Nutritional screening: No deficits noted. ap3 Tuberculosis screening: No symptoms or risk factors identified. Fall Risk Fall in past 12 months (25 points). Secondary diagnosis (15 points) impaired mobility, No IV (0 pts). Ambulatory Aid- Crutches/Cane/Walker (15 pts). Gait- Impaired (20 pts.). Mental Status- Oriented to own ability (0 pts). Total Milner Fall Scale indicates High Risk Score (45 or more points). Fall prevention measures have been instituted. Side Rails Up X 2 Placed Close to Nursing Station Frequent Obs/Assessments Occuring As available patient and family educated on Fall Prevention Program and Strategies. Assessment: 16:12 General: Appears in no apparent distress. Behavior is calm, cooperative. Pain: ap3 Complains of pain in right bicep. Neuro: Level of Consciousness is awake, alert, obeys commands, Oriented to person, place, time, situation. Cardiovascular: Patient's skin is warm and dry. Respiratory: Airway is patent Respiratory effort is even, unlabored, Respiratory pattern is regular, symmetrical. Musculoskeletal: Reports pain in right bicep. Injury Description: skin tear to right upper arm. 16:13 Injury Description: Laceration is jagged. ap3 Vital Signs: 15:33 BP 125 / 93; Pulse 88; Resp 16; Temp 98.4; Pulse Ox 97% on R/A; Weight 76.2 kg; Height vg1 5 ft. 8 in. (172.72 cm); Pain 6/10; 15:33 Body Mass Index 25.54 (76.20 kg, 172.72 cm) vg1 ED Course: 13:51 Patient arrived in ED. as 15:39 Triage completed. vg1 15:39 Arm band placed on. vg1 15:51 Mary Carrnaza RN is Primary Nurse. ap3 16:04 Sumit Linares PA is PHCP. jmm 16:04 Eric Barcenas MD is Attending Physician. [facility] 16:13 Patient has correct armband on for positive identification. Call light in reach. Pulse ap3 ox on. NIBP on. Door closed. Noise minimized. 16:27 Wound care: located on right bicep was cleaned with soap and water, dressed with ap3 Kerlix, ABD pads, Patient tolerated well. 16:28 No provider procedures requiring assistance completed. Patient did not have IV access ap3 during this emergency room visit. Administered Medications: No medications were administered Medication: 17:53 VIS not applicable for this client. ap3 Outcome: 17:42 Discharge ordered by . jesús 17:53 Discharged to home via wheelchair. ap3 17:53 Condition: good 17:53 Discharge instructions given to patient, Instructed on discharge instructions, follow up and referral plans. medication usage, Demonstrated understanding of instructions, follow-up care, medications, Prescriptions given X 1. 17:53 Patient left the ED. ap3 Signatures: Sumit Linares PA PA jmm Martinez, Amelia as Prokisch, Amanda RN RN ap3 Betina Suarez RN RN vg1 Corrections: (The following items were deleted from the chart) 15:41 15:39 Home Meds: Hydrocodone-Acetaminophen 5/500 Oral; vg1 vg1
--- NOTE | 2022-09-22 17:42 | EDPHYS ---
Physician Documentation [facility] Name: Nabor Barrow Jr Age: 57 yrs Sex: Male : 1965 Arrival Date: 09/22/2022 Time: 13:51 Bed 10 Private MD: ED Physician Eric Barcenas HPI: 09/22 16:17 This 57 yrs old Male presents to ER via Wheelchair with complaints of jmm Laceration To Arm. 16:17 Onset: The symptoms/episode began/occurred acutely, yesterday. This is a 57 year old jmm male that presents to the ED with complaints of a laceration to his right arm after accidently hitting his arm against a hinge. Denies other injury. patient states he awoke to a bleeding wound. unable to control bleeding at home. . 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 - Social history:: Smoking status: Patient denies any tobacco usage or history of. ROS: 16:17 Constitutional: Negative for fever, chills, and weight loss, Cardiovascular: Negative jmm for chest pain, palpitations, and edema, Respiratory: Negative for shortness of breath, cough, wheezing, and pleuritic chest pain. 16:17 Skin: Positive for laceration(s). 16:17 All other systems are negative. Exam: 16:17 Constitutional: This is a well developed, well nourished patient who is awake, alert, jmm and in no acute distress. Head/Face: atraumatic. Eyes: EOMI, no conjunctival erythema appreciated ENT: Moist Mucus Membranes Neck: Trachea midline, Supple Chest/axilla: Normal chest wall appearance and motion. Cardiovascular: Regular rate and rhythm. No edema appreciated Respiratory: Normal respirations, no respiratory distress appreciated Abdomen/GI: Non distended Back: Normal ROM 16:17 Skin: 4 cm laceration noted to the right arm, mild bleeding appreciated, compartments are soft. 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 16:17 Neuro: Orientation: is normal, Mentation: is normal, Memory: is normal. 16:17 Psych: Behavior/mood is pleasant, cooperative. Vital Signs: 15:33 BP 125 / 93; Pulse 88; Resp 16; Temp 98.4; Pulse Ox 97% on R/A; Weight 76.2 kg; Height vg1 5 ft. 8 in. (172.72 cm); Pain 6/10; 15:33 Body Mass Index 25.54 (76.20 kg, 172.72 cm) vg1 MDM: 16:17 Patient medically screened. [facility] 17:39 Data reviewed: vital signs, nurses notes. Counseling: I had a detailed discussion with [facility] the patient and/or guardian regarding: the historical points, exam findings, and any diagnostic results supporting the discharge/admit diagnosis, the need for outpatient follow up, to return to the emergency department if symptoms worsen or persist or if there are any questions or concerns that arise at home. 09/22 16:18 Order name: Wound Care: Apply surgicel, pressure dressing with coban. ; Complete Time: [facility] 16:26 Administered Medications: No medications were administered Disposition Summary: 09/22/22 17:42 Discharge Ordered Location: Home [facility] Condition: Stable [facility] Diagnosis - Laceration of the Right Arm [facility] Followup: [facility] - With: Private Physician - When: 2 - 3 days - Reason: Recheck today's complaints, Continuance of care, Re-evaluation by your physician Discharge Instructions: - Discharge Summary Sheet [facility] - Nonsutured Laceration Care [facility] Forms: - Medication Reconciliation Form [facility] - Thank You Letter [facility] - Antibiotic Education [facility] - Prescription Opioid Use [facility] Prescriptions: - Cephalexin 500 mg Oral Capsule - take 1 capsule by ORAL route every 6 hours for 10 days; 40 capsule; Refills: 0, [facility] Product Selection Permitted Addendum: 09/24/2022 13:37 Co-signature as Attending Physician, Eric Barcenas MD I agree with the assessment and c plan of care. Signatures: Eric Barcenas MD MD cha Mickail, Joel, PA PA jmm Garcia, Victoria RN RN vg1 Corrections: (The following items were deleted from the chart) 09/22 15:41 15:39 Home Meds: Hydrocodone-Acetaminophen 5/500 Oral; vg1 vg1
[2022-09-22 17:59] VITALS: BP 125/93; TEMP 98.4; O2SAT 97
== END 2022-09-22 17:53 | disposition home or self-care (01) ==
LOC: ER 13:47
DX: S41.111A Laceration without foreign body of right upper arm, initial encounter (principal)
CPT/HCPCS: 99283

== ENCOUNTER 2022-10-21 10:47 | Inpatient (IN) | payer OTHER ==
--- OUTSIDE RECORDS SUMMARY | 2022-10-21 10:56 | XMS REPORT | Continuity of Care Document ---
:1965 Author Organization [facility] t Address [address] [place] [address] Care Team Providers Name Role Phone Dexter Bravo Ace Primary Care Physician [phone] LINDSEY ARREOLA Attending Clinician Unavailable LOLLY LANDEROS Attending Clinician Unavailable Diana Spears Attending Clinician Unavailable ELIAN LARA Attending Clinician Unavailable ENEIDA_CORRINE Attending Clinician Unavailable BLAKE JIMENEZ Attending Clinician Unavailable Doctor Unassigned, [place] Attending Clinician Unavailable Blake Jimenez MD Attending Clinician AILYN PRICE Attending Clinician Unavailable Lab, [facility] Fam Pob I Attending Clinician Unavailable Irina Hodgson Attending Clinician IRINA HUNTER Attending Clinician Unavailable 2, Adc Lab Attending Clinician Unavailable Dede Diaz MD Attending Clinician Pob, Ad[facility] Lab Main Attending Clinician Unavailable NALDO CLEMENT Attending Clinician Unavailable KELLI CASTILLO P.A. Attending Clinician Unavailable LINDSEY ARREOLA M.D. Attending Clinician Unavailable LOLLY LANDEROS M.D. Attending Clinician Unavailable JANA ANAYA M.D. Attending Clinician Unavailable MIGUELINA LARA NP Attending Clinician Unavailable CJ CHEN PA Attending Clinician Unavailable IRENE PRITCHETT M.D. Attending Clinician Unavailable YI PICHARDO M.D. Attending Clinician Unavailable EMIR WILSON M.D. Attending Clinician Unavailable TAMMI WEI M.D. Attending Clinician Unavailable AMBREEN_FARHANA Admitting Clinician Unavailable NALDO CLEMENT Admitting Clinician Unavailable Payers Payer Name Policy Type Policy Number Effective Date Expiration Date S gale [employer]AR [id number] 2014 PLUS 00:00:00 [facility] [id number] 2020 2020 MEDICARE SNP 00:00:00 00:00:00 [facility] DUAL [id number] 2021 COMP HMO D SNP 00:00:00 [facility] [place] - [id number] 2014 STAR PLUS MMP - 00:00:00 DUAL ELIGIBLE (MEDICARE - MEDICAID REPLACEMENT HMO) Problems Condition Condition Condition Status Onset Resolution Last Treating Co mments Source Name Details Category Date Date Treatment Clinician Date 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 07-16 [facility] FDC FDC Disease Active [facility] systemic systemic 07[facility]16 [facility] steroid steroid 00:00: Medical user user 00 Center Leukocytos Leukocytos Disease Active [facility] 07[facility]16 [facility] 00[facility] Center Noninfecte Noninfecte Disease Active U miguelinaers d skin d skin 9-16 ity of tear of tear of 00:00: [place] leg, leg, 00 Medical right, right, Branch initial initial encounter encounter Right leg Right leg Disease Active Uni vers pain pain 8-10 ity of 00:00: [place] 00 Medical Branch Skin ulcer Skin ulcer Disease Active U miguelinaers 4-30 ity of 00:00: [place] 00 [facility] Branch Therapeuti Therapeuti Disease Active U meri c drug c drug 1-17 ity of monitoring monitoring 00:[place]: [place] [facility] Rash, skin Rash, skin Disease Active 2010-11 U nivjuan j 0-04 ity of 00:00: [place] 00 Medical Branch Vitamin D Vitamin D Disease Active Uni vers deficiency deficiency 8-16 it y of disease disease 00:00: [place] [facility] Bilateral Bilateral Disease Active Uni vers flank pain flank pain 5-27 it y of 00:00: [place] 00 Medical Branch Tinea Tinea Disease Active Univers corporis corporis 4-29 ity of 00:00: [place] [facility] Pathologic Pathologic Disease Active U nivers fracture fracture 1-22 ity of of of 00:00: [place] vertebrae vertebrae 00 [facility] Branch Drug-induc Drug-induc Disease Active U nivers ed ed -22 ity of osteoporos osteoporos 00:[place] 00 [facility] Personal Personal Disease Active Unive rs History of History of 1-22 it y of Other Other 00:00: [place] Diseases Diseases 00 Medica l of of Branch Digestive 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 00:00: [place] 00 Medical Branch Encounter Encounter Disease Active 2008-11 Uni vers for for 2-22 ity of long-term long-term 00:00: [place] (current) (current) 00 [facility] use of use of Branch steroids steroids Psoriatic Psoriatic Disease Active Uni vers arthropath arthropath 3-18 it y of y y 00:00: [place] 00 Medical Branch History of History of [...] DA Active SV 2020-0 [facility]13 [place] [facility] pregabal DA Active SV 2020-0 [facility] in 04-13 [place] 00:[facility]: [facility] azathiop DA Active SV HEADACHES, [facility] rine FEVER, 04-13 [place] STOMACHACHE 00:00: [facility] pregabal DA Active SV FACE, 0 [facility] in THROAT, AND 04-13 [place] EXTREMITY 00:00: Healthc SWELLING 00 are [facility] ASPIRIN Allergy Active High N\\T\\V 2018-[address] [facility] 07-06 [facility] 00:[facility] 00 Center AZATHIOP Allergy Active High Anaphylaxis 2019-[address] RINE 07-06 [facility] 00:[facility]: Medical 00 Center PREGABAL Allergy Active High Swelling 2019-0 [facility] IN 07-06 [facility] 00:00: Medical 00 [place] Aspirin Propensi Active Nausea And 2019-[address] ty to Vomiting 07-06 [facility] adverse 00:00: Medical reaction 00 [place] s Azathiop Propensi Active Anaphylaxis 2019-[address] rine ty to 07-06 [facility] adverse 00:00: Medical reaction 00 [place] s Pregabal Propensi Active Swelling 2019-[address] in ty to 07-06 [facility] adverse 00:00: Medical reaction 00 [place] s Pregabal Allergy Active Swelling 2017-0 Other [...] , FEVER, [facility]AC [facility] Originall y documente [...] Diabetes [facility] Social History Social Habit Start Date Stop Date Quantity Comments Source History SDOH [facility] Alcohol Binge Medical [facility] History SDOH [facility] Alcohol Comment Medical C enter History SDOH [facility] Alcohol Std Drinks Medica l Center Exposure to Not sure [facility] SARS-CoV-2 (event) History of tobacco Cigarette Smoker [place] of use [facility] Alcohol intake 2019-07-08 2019-07-[address] [facility] 00:00:00 00:00:00 non-drinker of Medical Ce nter alcohol (finding) History SDOH 2019-07-07 2019-07-[address] [facility] Alcohol Frequency 00:00:00 00:00:00 [facility] Tobacco Comment 2019-07-06 2019-07-06 QUIT OVER [address] [facility] 00:00:00 00:00:00 YEARS AGO [facility] Tobacco use and 2019-07-06 2019-07-[address] Dianne kes exposure 00:00:00 00:00:00 [facility] Cigarettes smoked 2008-06-02 2008-06-02 Univers ity of current (pack per 00:00:00 00:00:00 [facility] ) - Reported Branch Cigarette 2008-06-02 2008-06-02 University of pack-years 00:00:00 00:00:00 [facility] Sex Ass[birth year] At [birth year] MIRYAM Massey 00:00:00 00:00:00 Medical Center Smoking Status Start Date Stop Date Source Tobacco smoking [facility] consumption unknown Never smoked tobacco [facility] Former smoker 2019-07-06 00:00:00 2019-07-06 [facility] 00:00:00 Center Medications Ordered Filled Start Stop Current Ordering Indication Dosage Frequency Signature Comments Components Source Medication Medication Date Date Medication? Clinician (SIG) Name Name montelukast Yes [facility] (Singulair) 2-12 Health 10 MG [...] tablet 00:00: 00 gabapentin 2021-0 Yes 800mg [id number] Take 800 [facility] (Neurontin) 1-12 [id number] mg by H ealth 800 MG 00:00: 3D mouth 3 tablet 00 (three) times a day. HYDROcodone 2021-0 Yes 1{tbl} Q.[id number] Take 1 [facility] -acetaminop 1-12 [id number] tablet by Health hen ([place]) 00:00: 3D mouth 3 7.5-325 MG 00 [...] 00:00: (two) 00 times a day. gabapentin 2021-0 Yes 800mg [id number] Take 800 [facility] (Neurontin) 1-12 [id number] mg by H ealth 800 MG 00:00: 3D mouth 3 tablet 00 (three) times a day. HYDROcodone 2021-0 Yes 1{tbl} [id number] Take 1 [facility] -acetaminop 1-12 [id number] tablet by Health hen ([place]) 00:00: 3D mouth 3 7.5-325 MG 00 [...] 500 MG 00 tablet ergocalcife 2020-1 Yes [id number] Take 1 Univers rol, 0-15 capsule by ity of vitamin d2, 00:00: mouth [place] 1,250 mcg 00 weekly. Medical (50,000 Branch unit) capsule ergocalcife 2020-1 Yes [id number] Take 1 Univers rol, 0-15 capsule by ity of vitamin d2, 00:00: mouth [place] 1,250 mcg 00 weekly. Medical (50,000 Branch unit) capsule ergocalcife 2020- Yes [id number] Take 1 Univers rol, 0-15 capsule by ity of vitamin d2, 00:00: mouth [place] 1,250 mcg 00 weekly. Medical (50,000 Branch unit) capsule ergocalcife 2020- Yes [id number] Take 1 Univers rol, 0-15 capsule by ity of vitamin d2, 00:00: mouth [place] 1,250 mcg 00 weekly. Medical (50,000 Branch unit) capsule ergocalcife 2020- Yes [id number] Take 1 Univers rol, 0-15 capsule by ity of vitamin d2, 00:00: mouth [place] 1,250 mcg 00 weekly. Medical (50,000 Branch unit) capsule ergocalcife 2020-2021- No 1{capsu Take 1 [facility] rol 0-15 11-19 le} capsule by Health (Vitamin 00:00: 05:59 mouth 1 D-2) 1.25 00 :00 (one) time MG (50361 per week. [facility]) capsule ergocalcife 2019-2021- No 1{capsu Take 1 [facility] rol 0-15 11-19 le} capsule by Health (Vitamin 00:00: 05:59 mouth 1 D-2) 1.25 00 :00 (one) time MG (33243 per week. [place]) capsule furosemide 2020-0 Yes Univers 20 mg 8-06 ity of tablet 00:00: [facility] furosemide 2020-0 Yes Univers 20 mg 8-06 ity of tablet 00:00: [facility] furosemide 2020-0 Yes Univers 20 mg 8-06 ity of tablet 00:00: [facility] furosemide 2020-0 Yes Univers 20 mg 8-06 ity of tablet 00:00: [facility] furosemide 2020-0 Yes Univers 20 mg 8-06 ity of tablet 00:00: [facility] furosemide 2020-0 Yes Univers 20 mg 8-06 ity of tablet 00:00: [facility] furosemide 2020-0 Yes Univers 20 mg 8-06 ity of tablet 00:00: [facility] furosemide 2020-0 Yes Univers 20 mg 8-06 ity of tablet 00:00: [place] 00 Medical Branch furosemide 2020-0 Yes Univers 20 mg 8-06 ity of tablet 00:00: [place] 00 Medical Branch furosemide 2020-0 Yes Univers 20 mg 8-06 ity of tablet 00:00: [place] 00 Medical Branch testosteron 2020-0 Yes [id number] 80mg 0.8 mL by Univers e cypionate 2-19 Intramuscu it y of 100 mg/mL 00:00: lar route [place] as injection 00 weekly. Medical Branch testosteron 2020-0 Yes [id number] 80mg 0.8 mL by Univers e cypionate 2-19 Intramuscu it y of 100 mg/mL 00:00: lar route [place] as injection 00 weekly. Medical Branch testosteron 2020-0 Yes [id number] 80mg 0.8 mL by Univers e cypionate 2-19 Intramuscu it y of 100 mg/mL 00:00: lar route [place] as injection 00 weekly. Medical Branch testosteron 2020-0 Yes [id number] 80mg 0.8 mL by Univers e cypionate 2-19 Intramuscu it y of 100 mg/mL 00:00: lar route [place] as injection 00 weekly. Medical Branch testosteron 2020-0 Yes [id number] 80mg 0.8 mL by Univers e cypionate 2-19 Intramuscu it y of 100 mg/mL 00:00: lar route [place] as injection 00 weekly. Medical Branch testosteron 2020-0 Yes [id number] 80mg 0.8 mL by Univers e cypionate 2-19 Intramuscu it y of 100 mg/mL 00:00: lar route [place] as injection 00 weekly. Medical Branch testosteron 2020-0 Yes [id number] 80mg 0.8 mL by Univers e cypionate 2-19 Intramuscu it y of 100 mg/mL 00:00: lar route [place] as injection 00 weekly. Medical Branch testosteron 2020-0 Yes [id number] 80mg 0.8 mL by Univers e cypionate 2-19 Intramuscu it y of 100 mg/mL 00:00: lar route [place] as injection 00 weekly. Medical Branch testosteron 2020-0 Yes [id number] 80mg 0.8 mL by Univers e cypionate 2-19 Intramuscu it y of 100 mg/mL 00:00: lar route [place] as injection 00 weekly. Medical Branch testosteron 2020-0 Yes [id number] 80mg 0.8 mL by Univers e cypionate 2-19 Intramuscu it y of 100 mg/mL 00:00: lar route [place] as injection 00 weekly. Medical Branch testosteron 2020-0 Yes [id number] 80mg 0.8 mL by Univers e cypionate 2-19 Intramuscu it y of 100 mg/mL 00:00: lar route [place] as injection 00 weekly. Medical Branch testosteron 2020-0 Yes [id number] 80mg 0.8 mL by Univers e cypionate 2-19 Intramuscu it y of 100 mg/mL 00:00: lar route [place] injection 00 weekly. Medical Branch testosteron 2020-0 Yes [id number] 80mg 0.8 mL by Univers e cypionate 2-19 Intramuscu it y of 100 mg/mL 00:00: lar route [place] injection 00 weekly. Medical Branch testosteron 2020-0 Yes [id number] 80mg 0.8 mL by Univers e cypionate 2-19 Intramuscu it y of 100 mg/mL 00:00: lar route [place] injection 00 weekly. Medical Branch testosteron 2019-0 2020- No [id number] 80mg 0.[address] [facility] e cypionate 207-21 Intramuscu i ty of 100 mg/mL 00:00: 00:00 [place] route [place] injection 00 :00 weekly. Medical Branch testosteron 2019-0 2020- No [id number] 80mg 0.8 mL by [facility] e cypionate 207-21 Intramuscu i ty of 100 mg/mL 00:00: 00:00 lar route [place] injection 00 :00 weekly. Medical Branch testosteron 2020-0 Yes [id number] 80mg 0.8 mL by Univers e cypionate 2-14 Intramuscu it y of 100 mg/mL 00:00: lar route [place] as injection 00 weekly. Medical Branch testosteron 2020-0 Yes [id number] 80mg 0.8 mL by Univers e cypionate 2-14 Intramuscu it y of 100 mg/mL 00:00: lar route [place] injection 00 weekly. Medical Branch testosteron 2019-0 2020- No [id number] 80mg 0.8 mL by [facility] e cypionate 2-14 12-24 Intramuscu i ty of 100 mg/mL 00:00: 00:00 lar route [place] injection 00 :00 weekly. Medical Branch Syringe 2018- Yes [id number] Use as Univ ers with 2-16 directed ity of Needle, 00:00: once a [place] Disp, 1 mL 00 week Medical 20 gauge x Branch 1" Syrg Syringe 2018- Yes [id number] Use as Univ ers with 2-16 directed ity of Needle, 00:00: once a [place] Disp, 1 mL 00 week Medical 20 gauge x Branch 1" Syrg Syringe 2018- Yes [id number] Use as Univ ers with 2-16 directed ity of Needle, 00:00: once a [place] Disp, 1 mL 00 week Medical 20 gauge x Branch 1" Syrg Syringe 2018- Yes [id number] Use as Univ ers with 2-16 directed ity of Needle, 00:00: once a [place] Disp, 1 mL 00 week Medical 20 gauge x Branch 1" Syrg Syringe 2018- Yes [id number] Use as Univ ers with 2-16 directed ity of Needle, 00:00: once a [place] Disp, 1 mL 00 week Medical 20 gauge x Branch 1" Syrg Syringe 2018- Yes [id number] Use as Univ ers with 2-16 directed ity of Needle, 00:00: once a [place] Disp, 1 mL 00 week Medical 20 gauge x Branch 1" Syrg Syringe 2018- Yes [id number] Use as Univ ers with 2-16 directed ity of Needle, 00:00: once a [place] Disp, 1 mL 00 week Medical 20 gauge x Branch 1" Syrg Syringe 2018- Yes [id number] Use as Univ ers with 2-16 directed ity of Needle, 00:00: once a [place] Disp, 1 mL 00 week Medical 20 gauge x Branch 1" Syrg Syringe 2018- Yes [id number] Use as Univ ers with 2-16 directed ity of Needle, 00:00: once a [place] Disp, 1 mL 00 week Medical 20 gauge x Branch 1" Syrg Syringe 2018- Yes [id number] Use as Univ ers with 2-16 directed ity of Needle, 00:00: once a [place] Disp, 1 mL 00 week Medical 20 gauge x Branch 1" Syrg Syringe 2018- Yes [id number] Use as Univ ers with 2-16 directed ity of Needle, 00:00: once a [place] Disp, 1 mL 00 week Medical 20 gauge x Branch 1" Syrg Syringe 2018- Yes [id number] Use as Univ ers with 2-16 directed ity of Needle, 00:00: once a [place] Disp, 1 mL 00 week Medical 20 gauge x Branch 1" Syrg Syringe 2018-11 Yes [id number] Use as Univ ers with 2-16 directed ity of Needle, 00:00: once a [place] Disp, 1 mL week Medical 20 gauge x Branch 1" Syrg Syringe 2018-11 Yes [id number] Use as Univ ers with 2-16 directed ity of Needle, 00:00: once a [place] Disp, 1 mL week Medical 20 gauge x Branch 1" Syrg Syringe 2018-11 Yes [id number] Use as Univ ers with 2-16 directed ity of Needle, 00:00: once a [place] Disp, 1 mL week Medical 20 gauge x Branch 1" Syrg testosteron 2018-11 Yes [id number] 80mg 0.8 mL by Univers e cypionate 2-16 Intramuscu it y of 100 mg/mL 00:00: lar route [place] injection 00 weekly. Medical Branch Syringe 2018-11 Yes [id number] Use as Univ ers with 2-16 directed ity of Needle, 00:00: once a [place] Disp, 1 mL week Medical 20 gauge x Branch 1" Syrg testosteron 2018-11 Yes [id number] 80mg 0.8 mL by Univers e cypionate 2-16 Intramuscu it y of 100 mg/mL 00:00: lar route [place] as injection 00 weekly. Medical Branch Syringe 2018-11 Yes [id number] Use as Univ ers with 2-16 directed ity of Needle, 00:00: once a [place] Disp, 1 mL 00 week Medical 20 gauge x Branch 1" Syrg testosteron 2018-11 Yes [id number] 80mg 0.8 mL by Univers e cypionate 2-16 Intramuscu it y of 100 mg/mL 00:00: lar route [place] as injection 00 weekly. Medical Branch Syringe 2018- Yes [id number] Use as Univ ers with 2-16 directed ity of Needle, 00:00: once a [place] Disp, 1 mL 00 week Medical 20 gauge x Branch 1" Syrg testosteron 2018-11 Yes [id number] 80mg 0.8 mL by Univers e cypionate 2-16 Intramuscu it y of 100 mg/mL 00:00: lar route [place] as injection 00 weekly. Medical Branch Syringe 2018-11 Yes [id number] Use as Univ ers with -16 directed ity of Needle, 00:00: once a [place] Disp, 1 mL 00 week Medical 20 gauge x Branch 1" Syrg Syringe 2018-11 Yes [id number] Use as Univ ers with 12-21 directed ity of Needle, 00:00: once a [place] Disp, 1 mL 00 week Medical 20 gauge x Branch 1" Syrg Syringe 2018-11 2020- No [id number] Use as Uni vers with 12-21 directed ity of Needle, 00:00: 00:00 once a [place] Disp, 1 mL 00 :00 week Medical 20 gauge x Branch 1" Syrg Syringe 2018-11 2020- No [id number] Use as Uni vers with 12-21 directed ity of Needle, 00:00: 00:00 once a [place] Disp, 1 mL 00 :00 week Medical 20 gauge x Branch 1" Syrg testosteron 2018-11 2020- No [id number] 80mg 0.8 mL by Univers e cypionate 12-2114 Intramuscu i ty of 100 mg/mL 00:00: 00:00 lar route [place] injection 00 :00 weekly. [facility] Branch gabapentin 2018-11 Yes 800mg Take 800 Un mel[place] 800 mg 2-11 mg by ity of tablet 14:36: mouth. [address] gabapentin 2018-11 Yes 800mg Take 800 Un mel[place] 800 mg 2-11 mg by ity of tablet 14:36: mouth. [address] gabapentin 2018-11 Yes 800mg Take 800 Un mel[place] 800 mg 2-11 mg by ity of tablet 14:36: mouth. [address] gabapentin 2018-11 Yes 800mg Take 800 Un mel[place] 800 mg 2-11 mg by ity of tablet 14:36: mouth. [address] gabapentin 2018-11 Yes 800mg Take 800 Un melchor 800 mg 2-11 mg by ity of tablet 14:36: mouth. [address] gabapentin 2018-11 Yes 800mg Take 800 Un melchor 800 mg 2-11 mg by ity of tablet 14:36: mouth. [address] gabapentin 2018-11 Yes 800mg Take 800 Un melchor 800 mg 2-11 mg by ity of tablet 14:36: mouth. [address] gabapentin 2018- Yes 800mg Take 800 Un melchor 800 mg 2-11 mg by ity of tablet 14:36: mouth. [address] gabapentin 2018- Yes 800mg Take 800 Un melchor 800 mg 2-11 mg by ity of tablet 14:36: mouth. [address] gabapentin 2018- Yes 800mg Take 800 Un melchor 800 mg 2-11 mg by ity of tablet 14:36: mouth. [address] gabapentin 2018-11 Yes 800mg Take 800 Un melchor 800 mg 2-11 mg by ity of tablet 14:36: mouth. [address] gabapentin 2018- Yes 800mg Take 800 Un melchor 800 mg 2-11 mg by ity of tablet 14:36: mouth. [address] gabapentin 2018-11 Yes 800mg Take 800 Un melchor 800 mg 2-11 mg by ity of tablet 14:36: mouth. [address] gabapentin 2018- Yes 800mg Take 800 Un melchor 800 mg 2-11 mg by ity of tablet 14:36: mouth. [address] gabapentin 2018-11 Yes 800mg Take 800 Un melchor 800 mg 2-11 mg by ity of tablet 14:36: mouth. [address] gabapentin 2018- Yes 800mg Take 800 Un melchor 800 mg 2-11 mg by ity of tablet 14:36: mouth. [address] gabapentin 2018-11 Yes 800mg Take 800 Un melchor 800 mg 2-11 mg by ity of tablet 14:36: mouth. [address] gabapentin 2018- Yes 800mg Take 800 Un melchor 800 mg 2-11 mg by ity of tablet 14:36: mouth. [address] gabapentin 2018- Yes 800mg Take 800 Un melchor 800 mg 2-11 mg by ity of tablet 14:36: mouth. [address] gabapentin 2018- Yes 800mg Take 800 Un melchor 800 mg 2-11 mg by ity of tablet 14:36: mouth. [address] gabapentin 2018- Yes 800mg Take 800 Un melchor 800 mg 2-11 mg by ity of tablet 14:36: mouth. [address] gabapentin 2018- Yes 800mg Take 800 Un melchor 800 mg 2-11 mg by ity of tablet 14:36: mouth. [address] gabapentin 2018- Yes 800mg Take 800 Un melchor 800 mg 2-11 mg by ity of tablet 14:36: mouth. [address] gabapentin 2018- Yes 800mg Take 800 Un melchor 800 mg 2-11 mg by ity of tablet 14:36: mouth. [address] gabapentin 2018- Yes 800mg Take 800 Un melchor 800 mg 2-11 mg by ity of tablet 14:36: mouth. [address] gabapentin 2018- Yes 800mg Take 800 Un melchor 800 mg 2-11 mg by ity of tablet 14:36: mouth. [address] gabapentin 2018- Yes 800mg Take 800 Un melchor 800 mg 2-11 mg by ity of tablet 14:36: mouth. [address] gabapentin 2018- Yes 800mg Take 800 Un melchor 800 mg 2-11 mg by ity of tablet 14:36: mouth. [address] gabapentin 2018- Yes 800mg Take 800 Un melchor 800 mg 2-11 mg by ity of tablet 14:36: mouth. [address] gabapentin 2018- Yes 800mg Take 800 Un melchor 800 mg 2-11 mg by ity of tablet 08:36: mouth. [address] gabapentin 2018- Yes 800mg Take 800 Un melchor 800 mg 2-11 mg by ity of tablet 08:36: mouth. [address] predniSONE 2019- Yes TK 1 T PO Un melchor 5 mg tablet 12-03 BID ity of 00:00: [address] predniSONE 2019- Yes TK 1 T PO Un melchor 5 mg tablet - BID ity of 00:00: [address] predniSONE 2019- Yes TK 1 T PO Un melchor 5 mg tablet - BID ity of 00:00: [address] predniSONE 2019- Yes TK 1 T PO Un melchor 5 mg tablet - BID ity of 00:00: [address] predniSONE 2019- Yes TK 1 T PO Un melchor 5 mg tablet - BID ity of 00:00: [address] predniSONE 2019- Yes TK 1 T PO Un melchor 5 mg tablet - BID ity of 00:00: [address] predniSONE 2019- Yes TK 1 T PO Un melchor 5 mg tablet 29 BID ity of 00:00: [place] [facility] predniSONE 2019- Yes TK 1 T PO Un melchor 5 mg tablet 12-03 BID ity of 00:00: [place] [facility] predniSONE 2019- Yes TK 1 T PO Un melchor 5 mg tablet 29 BID ity of 00:00: [place] [facility] predniSONE 2019- Yes TK 1 T PO Un melchor 5 mg tablet 12-03 BID ity of 00:00: [place] [facility] predniSONE 2019- Yes TK 1 T PO Un melchor 5 mg tablet 12-03 BID ity of 00:00: [place] [facility] predniSONE 2019- Yes TK 1 T PO Un melchor 5 mg tablet 12-03 BID ity of 00:00: [place] [facility] predniSONE 2019- Yes TK 1 T PO Un melchor 5 mg tablet 12-03 BID ity of 00:00: [address] predniSONE 2019- Yes TK 1 T PO Un melchor 5 mg tablet 12-03 BID ity of 00:00: [place] [facility] predniSONE 2019- Yes TK 1 T PO Un melchor 5 mg tablet 12-03 BID ity of 00:00: [address] predniSONE 2019- Yes TK 1 T PO Un melchor 5 mg tablet 12-03 BID ity of 00:00: [address] predniSONE 2019- Yes TK 1 T PO Un melchor 5 mg tablet 12-03 BID ity of 00:00: [address] predniSONE 2019- Yes TK 1 T PO Un melchor 5 mg tablet 12-03 BID ity of 00:00: [place] [facility] predniSONE 2019- Yes TK 1 T PO Un melchor 5 mg tablet 12-03 BID ity of 00:00: [place] [facility] predniSONE 2019- Yes TK 1 T PO Un melchor 5 mg tablet 12-03 BID ity of 00:00: [address] predniSONE 2019- Yes TK 1 T PO Un melchor 5 mg tablet 12-03 BID ity of 00:00: [place] [facility] predniSONE 2019- Yes TK 1 T PO Un melchor 5 mg tablet 12-03 BID ity of 00:00: [place] [facility] predniSONE 2019- Yes TK 1 T PO Un melchor 5 mg tablet 12-03 BID ity of 00:00: [facility] predniSONE 2019- Yes TK 1 T PO Un melchor 5 mg tablet 12-03 BID ity of 00:00: [place] [facility] predniSONE 2019- Yes TK 1 T PO Un melchor 5 mg tablet 12-03 BID ity of 00:00: [place] [facility] predniSONE 2019- Yes TK 1 T PO Un melchor 5 mg tablet 12-03 BID ity of 00:00: [place] [facility] predniSONE 2019- Yes TK 1 T PO Un melchor 5 mg tablet 12-03 BID ity of 00:: [place] [facility] predniSONE 2018- Yes TK 1 T PO Un melchor 5 mg tablet 12-03 BID ity of 00:: [place] [facility] predniSONE 2019- Yes TK 1 T PO Un melchor 5 mg tablet 12-03 BID ity of 00:: [place] [facility] predniSONE 2018- Yes TK 1 T PO Un melchor 5 mg tablet 12-03 BID ity of 00:00: [place] [facility] predniSONE 2018- Yes TK 1 T PO Un melchor 5 mg tablet 12-03 BID ity of 00:00: [place] [facility] predniSONE Yes 5mg Q.5D Take [address] (DELTASONE) 9-11 by mouth 2 Dianne kes 5 MG tablet 14:01: (two) Medic al 49 times Center daily. gabapentin Yes 800mg Q.[id number] Take [address] (NEURONTIN) 9-11 [id number] mg by L ukes 800 MG 14:01: [...] 14:01: usly daily Medica l 49 . [place] testosteron 2019-0 Yes 200mg Q7D Inject [address] cypionate 9-11 [facility] (DEPOTESTOT 14:01: [facility] Medical ERONE 49 larly once Center CYPIONATE) a week. 200 mg/mL injection predniSONE 2018-0 Yes 5mg Q.5D Take [address] (DELTASONE) 9-11 by mouth 2 Dianne kes 5 MG tablet 14:01: (two) Medic al 49 times Center daily. gabapentin 0 Yes 800mg Q.[id number] Take [address] (NEURONTIN) 9-11 [id number] mg by L ukes 800 MG 14:01: [...] needed. Medica l capsule 49 Center teriparatid 0 Yes QD Inject [facility] (FORTEO 9-11 subcutaneo Luke s SUBQ) 14:01: usly daily Medica l 49 . Center testosteron 0 Yes 200mg Q7D Inject [address] [facility] cypionate 9-11 mg [facility] (DEPOTESTOT 14:01: intramuscu Medical ERONE 49 larly once Center CYPIONATE) a week. 200 mg/mL injection predniSONE 0 Yes 5mg Q.5D Take [address] (DELTASONE) 9-11 by mouth 2 Dianne kes 5 MG tablet 14:01: (two) Medic al 49 times Center daily. gabapentin 20190 Yes 800mg Q.[id number] Take [address] (NEURONTIN) 9-11 [id number] mg by L ukes 800 MG 14:01: 3D mouth 3 Medical tablet 49 (three) Center times daily. oxyCODONE-a 0 Yes 1{tbl} Take [address] [...] 49 times Center daily. gabapentin Yes 800mg Q.[id number] Take [address] (NEURONTIN) 9-11 [id number] mg by L ukes 800 MG 14:01: [...] MG 3-30 CHEN PA capsule a Physici (00015 UT) (53258 UT) 00:00: week for ans Oral Oral 00 12 weeks. Capsule Capsule esomeprazol 2017-0 Yes Univer s e 40 mg 3-23 ity of capsule 00:00: [facility] esomeprazol 2017-0 Yes Univer s e 40 mg 3-23 ity of capsule 00:00: [facility] esomeprazol 2017-0 Yes Univer s e 40 mg 3-23 ity of capsule 00:00: [facility] esomeprazol 2017-0 Yes Univer s e 40 mg 3-23 ity of capsule 00:00: [facility] esomeprazol 2017-0 Yes Univer s e 40 mg 3-23 ity of capsule 00:00: [facility] esomeprazol 2017-0 Yes Univer s e 40 mg 3-23 ity of capsule 00:00: [facility] esomeprazol 2017-0 Yes Univer s e 40 mg 3-23 ity of capsule 00:00: [facility] esomeprazol 2017-0 Yes Univer s e 40 mg 3-23 ity of capsule 00:00: [facility] esomeprazol 2017-0 Yes Univer s e 40 mg 3-23 ity of capsule 00:00: [facility] esomeprazol 2017-0 Yes Univer s e 40 mg 3-23 ity of capsule 00:00: [facility] esomeprazol 2017-0 Yes Univer s e 40 mg 3-23 ity of capsule 00:00: [facility] esomeprazol 2017-0 Yes Univer s e 40 mg 3-23 ity of capsule 00:00: [facility] esomeprazol 2017-0 Yes Univer s e 40 mg 3-23 ity of capsule 00:00: [facility] esomeprazol 2017-0 Yes Univer s e 40 mg 3-23 ity of capsule 00:00: [facility] esomeprazol 2017-0 Yes Univer s e 40 mg 3-23 ity of capsule 00:00: [facility] esomeprazol 2017-0 Yes Univer s e 40 mg 3-23 ity of capsule 00:00: [facility] esomeprazol 2017-0 Yes Univer s e 40 mg 3-23 ity of capsule 00:00: [facility] esomeprazol 2017-0 Yes Univer s e 40 mg 3-23 ity of capsule 00:00: [facility] esomeprazol 2017-0 Yes Univer s e 40 mg 3-23 ity of capsule 00:00: [facility] esomeprazol 2017-0 Yes Univer s e 40 mg 3-23 ity of capsule 00:00: [facility] esomeprazol 2017-0 Yes Univer s e 40 mg 3-23 ity of capsule 00:00: [facility] esomeprazol 2017-0 Yes Univer s e 40 mg 3-23 ity of capsule 00:00: [facility] esomeprazol 2017-0 Yes Univer s e 40 mg 3-23 ity of capsule 00:00: [facility] esomeprazol 2017-0 Yes Univer s e 40 mg 3-23 ity of capsule 00:00: [facility] esomeprazol 2017-0 Yes Univer s e 40 mg 3-23 ity of capsule 00:00: [facility] esomeprazol 2017-0 Yes Univer s e 40 mg 3-23 ity of capsule 00:00: [facility] esomeprazol 2017-0 Yes Univer s e 40 mg 3-23 ity of capsule 00:00: [facility] esomeprazol 2017-0 Yes Univer s e 40 mg 3-23 ity of capsule 00:00: [facility] esomeprazol 2017-0 Yes Univer s e 40 mg 3-23 ity of capsule 00:00: [facility] esomeprazol 2017-0 Yes Univer s e 40 mg 3-23 ity of capsule 00:00: [facility] esomeprazol 2017-0 Yes Univer s e 40 mg 3-23 ity of capsule 00:00: [facility] oxyCODONE-a 2017-0 Yes [place] cetaminophe 3-07 ity of n 10-325 mg 00:00: [place] [facility] 00 Medical Branch oxyCODONE-a 2017-0 Yes [place] cetaminophe 3-07 ity of n 10-325 mg 00:00: [place] per tablet 00 Medical Branch oxyCODONE-a 0 Yes Andreiaer s cetaminophe 3-07 ity of n 10-325 [...] 10-325 mg 00:00: [place] per tablet 00 [facility] oxyCODONE-a Yes Andreiaer s cetaminophe 3-07 ity of n 10-325 mg 00:00: [place] per tablet 00 [facility] oxyCODONE-a Yes Andreiaer s cetaminophe 3-07 ity of n 10-325 mg 00:00: [place] per tablet 00 [facility] predniSONE predniSONE Yes Q0.5D TAKE 1 UT [...] BEDTIME. ans Tablet Tablet 00 teriparatid Yes [id number] 20ug inject Univers e (FORTEO) 1-31 0.08 mL ity of 20 mcg/dose 00:00: [place] the [place] - 600 00 skin Medical mcg/2.4 mL daily. Branch injection teriparatid Yes [id number] 20ug inject Univers e (FORTEO) 1-31 0.08 mL ity of 20 mcg/dose 00:00: [place] the [place] - 600 00 skin Medical mcg/2.4 mL daily. Branch injection teriparatid Yes [id number] 20ug inject Univers e (FORTEO) 1-31 0.08 mL ity of 20 mcg/dose 00:00: [place] the [place] - 600 00 skin Medical mcg/2.4 mL daily. Branch injection teriparatid Yes [id number] 20ug inject Univers e (FORTEO) 1-31 0.08 mL ity of 20 mcg/dose 00:00: [place] the [place] - 600 00 skin Medical mcg/2.4 mL daily. Branch injection teriparatid Yes [id number] 20ug inject Univers e (FORTEO) 1-31 0.08 mL ity of 20 mcg/dose 00:00: [place] the [place] - 600 00 skin Medical mcg/2.4 mL daily. Branch injection teriparatid Yes [id number] 20ug inject Univers e (FORTEO) 1-31 0.08 mL ity of 20 mcg/dose 00:00: [place] the [place] - 600 00 skin Medical mcg/2.4 mL daily. Branch injection teriparatid Yes [id number] 20ug inject Univers e (FORTEO) 1-31 0.08 mL ity of 20 mcg/dose 00:00: [place] the [place] - 600 00 skin Medical mcg/2.4 mL daily. Branch injection teriparatid Yes [id number] 20ug inject Univers e (FORTEO) 1-31 0.08 mL ity of 20 mcg/dose 00:00: [place] the [place] - 600 00 skin Medical mcg/2.4 mL daily. Branch injection teriparatid Yes [id number] 20ug inject Univers e (FORTEO) 1-31 0.08 mL ity of 20 mcg/dose 00:00: [place] the [place] - 600 00 skin Medical mcg/2.4 mL daily. Branch injection teriparatid Yes [id number] 20ug inject Univers e (FORTEO) 1-31 0.08 mL ity of 20 mcg/dose 00:00: [place] the [place] - 600 00 skin Medical mcg/2.4 mL daily. Branch injection teriparatid Yes [id number] 20ug inject Univers e (FORTEO) 1-31 0.08 mL ity of 20 mcg/dose 00:00: [place] the [place] - 600 00 skin Medical mcg/2.4 mL daily. Branch injection teriparatid Yes [id number] 20ug inject Univers e (FORTEO) 12-05 0.08 mL ity of 20 mcg/dose 00:00: [place] the [place] - 600 00 skin Medical mcg/2.4 mL daily. Branch injection teriparatid 2020- No [id number] 20ug inject Univers e (FORTEO) 12-0510 0.08 mL ity o f 20 mcg/dose 00:00: 00:00 under the [place] - 600 00 :00 skin Medical mcg/2.4 mL daily. Branch injection teriparatid 2020- No [id number] 20ug inject Univers e (FORTEO) 12-05 0.08 mL ity o f 20 mcg/dose 00:00: 00:00 under the [place] - 600 00 :00 skin Medical mcg/2.4 mL daily. Branch injection Immunizations Ordered Filled Immunization Date Status Comments [facility] e Immunization Name Name Td 2011-02-16 Completed [facility] 00:00:00 PPD (TB) 2009-01-20 Completed University of 00:00:00 [facility] PPD (TB) 2009-01-20 Completed University of 00:00:00 [facility] PPD (TB) 2009-01-20 Completed University of 00:00:00 [facility] PPD (TB) 2009-01-20 Completed University of 00:00:00 [facility] PPD (TB) 2009-01-20 Completed University of 00:00:00 [facility] PPD (TB) 2009-01-20 Completed University of 00:00:00 [facility] PPD (TB) 2009-01-20 Completed University of 00:00:00 [facility] PPD (TB) 2009-01-20 Completed University of 00:00:00 [facility] PPD (TB) 2009-01-20 Completed University of 00:00:00 [facility] PPD (TB) 2009-01-20 Completed University of 00:00:00 [facility] PPD (TB) 2009-01-20 Completed University of 00:00:00 [facility] PPD (TB) 2009-01-20 Completed University of 00:00:00 [facility] PPD (TB) 2009-01-20 Completed University of 00:00:00 [facility] PPD (TB) 2009-01-20 Completed University of 00:00:00 [facility] PPD (TB) 2009-01-20 Completed University of 00:00:00 [facility] PPD (TB) 2009-01-20 Completed University of 00:00:00 [facility] PPD (TB) 2009-01-20 Completed University of 00:00:00 [facility] PPD (TB) 2009-01-20 Completed University of 00:00:00 [facility] PPD (TB) 2009-01-20 Completed University of 00:00:00 [facility] PPD (TB) 2009-01-20 Completed University of 00:00:00 [facility] PPD (TB) 2009-01-20 Completed University of 00:00:00 [facility] PPD (TB) 2009-01-20 Completed University of 00:00:00 [facility] PPD (TB) 2009-01-20 Completed University of 00:00:00 [facility] PPD (TB) 2009-01-20 Completed University of 00:00:00 [facility] PPD (TB) 2009-01-20 Completed University of 00:00:00 [facility] PPD (TB) 2009-01-20 Completed University of 00:00:00 [facility] PPD (TB) 2009-01-20 Completed University of 00:00:00 [facility] PPD (TB) 2009-01-20 Completed University of 00:00:00 [facility] PPD (TB) 2009-01-20 Completed University of 00:00:00 [facility] PPD (TB) 2009-01-20 Completed University of 00:00:00 [facility] PPD (TB) 2009-01-20 Completed University of 00:00:00 [facility] PPD (TB) 2009-01-20 Completed University of 00:00:00 [facility] PPD (TB) 2009-01-20 Completed University of 00:00:00 [facility] PPD (TB) 2009-01-20 Completed University of 00:00:00 [facility] PPD (TB) 2009-01-20 Completed University of 00:00:00 [facility] PPD (TB) 2009-01-20 Completed University of 00:00:00 [facility] PPD (TB) 2009-01-20 Completed University of 00:00:00 [facility] PPD (TB) 2009-01-20 Completed University of 00:00:00 [facility] PPD (TB) 2009-01-20 Completed University of 00:00:00 [facility] PPD (TB) 2009-01-20 Completed University of 00:00:00 [facility] PPD (TB) 2009-01-20 Completed University of 00:00:00 [facility] PPD (TB) 2009-01-20 Completed University of 00:00:00 [facility] PPD (TB) 2009-01-20 Completed University of 00:00:00 [facility] PPD (TB) 2009-01-20 Completed University of 00:00:00 [facility] PPD (TB) 2009-01-20 Completed University of 00:00:00 [facility] PPD (TB) 2009-01-20 Completed University of 00:00:00 [facility] PPD (TB) 2009-01-20 Completed University of 00:00:00 [facility] PPD (TB) 2009-01-20 Completed University of 00:00:00 [facility] PPD (TB) 2009-01-20 Completed University of 00:00:00 [facility] PPD (TB) 2009-01-20 Completed University of 00:00:00 [facility] PPD (TB) 2009-01-20 Completed University of 00:00:00 [facility] PPD (TB) 2009-01-20 Completed University of 00:00:00 [facility] PPD (TB) 2009-01-20 Completed University of 00:00:00 [facility] PPD (TB) 2009-01-20 Completed University of 00:00:00 [facility] PPD (TB) 2009-01-20 Completed University of 00:00:00 [facility] PPD (TB) 2009-01-20 Completed University of 00:00:00 [facility] PPD (TB) 2009-01-20 Completed University of 00:00:00 [facility] PPD (TB) 2009-01-20 Completed University of 00:00:00 [facility] PPD (TB) 2009-01-20 Completed University of 00:00:00 [facility] PPD (TB) 2009-01-20 Completed University of 00:00:00 [facility] PPD (TB) 2009-01-20 Completed University of 00:00:00 [facility] PPD (TB) 2009-01-20 Completed University of 00:00:00 [facility] Vital Signs Vital Name Observation Time Observation Value Comments Source Body height 2021-12-20 16:05:00 [facility] weight 2021-12-20 16:05:00 [facility]204 [facility] BMI 2021-12-20 16:05:00 24.81 kg[facility]m2 [facility] Systolic blood 2020-07-21 18:47:00 109 mm[Hg] Univer sity of pressure [facility] Diastolic blood 2020-07-21 18:47:00 74 mm[Hg] Unive rsity of pressure [facility] Heart rate 2020-07-21 18:47:00 104 /min Universi ty [facility] Body height 2020-07-21 18:47:00 172.7 cm [facility]i [facility] [place] [facility] Body weight 2020-07-21 18:47:00 69.4 kg [facility] BMI 2020-07-21 18:47:00 23.26 kg/m2 [facility] Oxygen saturation in 2020-07-21 18:47:00 98 /min University of Arterial blood by [facility] Pulse oximetry Branch Systolic blood 2020-07-21 18:47:00 109 mm[Hg] Univer sity of pressure [facility] Diastolic blood 2020-07-21 18:47:00 74 mm[Hg] Unive rsity of pressure [facility] Heart rate 2020-07-21 18:47:00 104 /min Universi ty of [facility] Body height 2020-07-21 18:47:00 172.7 cm [facility]i [facility] [place] [facility] Body weight 2020-07-21 18:47:00 69.4 kg [facility]i [facility] BMI 2020-07-21 18:47:00 23.26 kg/m2 [facility] Oxygen saturation in 2020-07-21 18:47:00 98 /min University of Arterial blood by [facility] Pulse oximetry Branch Systolic blood 2020-04-14 16:07:00 120 mm[Hg] Univer sity of pressure [facility] Diastolic blood 2020-04-14 16:07:00 82 mm[Hg] Unive rsity of pressure [facility] Heart rate 2020-04-14 16:07:00 101 /min [facility]i ty [facility] Respiratory rate 2020-04-14 16:07:00 18 /min Univ ersity of [facility] Body weight 2020-04-14 16:07:00 71.668 kg [facility]i [facility] BMI 2020-04-14 16:07:00 21.43 kg/m2 [facility] Height 2018-05-31 14:24:00 71 [in_us] [facility] [...] REFERRAL- REQUEST/RESPONSE 2022-05-12 05:01:00 Doctor Unassigned , [facility] Name Medical Branch REFERRAL- REQUEST/RESPONSE 2020-08-09 05:01:00 Doctor Unassigned , [facility] Name Medical Branch REFERRAL- REQUEST/RESPONSE 2020-07-28 05:01:00 Doctor Unassigned , [facility] Name Medical [place] AGREEMENTS AUTHORIZATIONS 2019-11-27 06:01:00 Doctor Unassigned, [facility] AND IRREVOCABLE [facility] [place] ASSIGNMENTS (FORM 2000) [Q] C TELOPEPTIDE (CTX) [...] Energy 2019-04-17 00:00:00 [facility] [id number] [U] XRAY ELBOW MIN 3 VWS 2018-08-09 00:00:00 [facility] LEFT [id number] [[facility]] SED RATE BY MODIFIED 2018-04-15 00:00:00 [facility] BOAZ [[facility]] C-REACTIVE PROTEIN 2018-04-15 00:00:00 [facility] History [...] Medica l Center colon (procedure) [code = 257203597] Future Scheduled 2020-07-06 INFLUENZA VACCINE (#1) C [...] Test 00:00:00 (procedure) [code = Medical Center [id number]] Future Scheduled [address] [facility] Test 00:00:00 0-64 YRS (1 of 3 - Medical C enter PCV13) [code = PNEUMOCOCCAL VACCINE 0-64 YRS (1 of 3 - PCV13)] Encounters Start End Encounter Admission Attending Care Care Encounter Source Date/Time Date/Time Type Type Clinicians Facility Department ID 2022-10-12 Outpatient [facility] [id number] [place] 06:44:30 [id number] [facility] 2021-12-20 Outpatient [facility] [id number] [place] 10:13:23 Health 2021-12-20 Outpatient [facility] [id number] [place] 10:07:08 [facility] 2021-12-12 Outpatient ELBA, [facility] [id number] [place] 15:49:45 [facility] 2021-09-22 Outpatient LANDEROS, [facility] [id number] [place] 14:26:36 [facility] 2020-04-16 Inpatient Shuhatovich [facility] DAYS [id number] [facility] 07:30:00 , Diana [address] [place] on [facility] 2022-11-24 2022-11-24 Outpatient R MARCO [facility] [id number] Univers 11:30:00 11:30:00 ELIAN [facility] 2022-09-11 2022-09-11 Outpatient AMBREEN_[facility] [id number] [place] 00:00:00 00:00:00 HANA 1107 [facility] 2022-08-22 2022-08-22 Outpatient R JOSEPH [facility] [id number] Univers 15:00:00 15:00:00 [facility] 2022-05-12 2022-05-12 Orders Doctor GIA [id number] Univers 00:00:00 00:00:00 Only Unassigned, DANYELL [id number] ity [facility] [id number] Florentino as [phone] [address] 2022-02-27 2022-02-27 Outpatient AMBREEN_[facility] [id number] [place] 11:00:00 11:00:00 HANA 0425 [facility] 2022-02-22 2022-02-22 Telephone Joseph [facility] [id number] [facility] 00:00:00 00:00:00 [facility] [id number] it y of [place] [id number] Florentino as WEI?BLEA [phone] [address] MEDICAL OFFICE BUILDING 2021-12-20 2021-12-20 Office CRISTIANA PRICE [facility] [id number] [place] 10:30:00 10:45:00 Visit AILYN RODRIGES [id number] Health [place] [id number] MEDICAL [id number] AYAZZA 2 2021-12-12 2021-12-12 Office CRISTIANA Landeros [facility] [id number] [place] 15:00:00 15:23:42 Visit Lolly MCKEON AND [id number] Health [place] [id number] MEDICAL [id number] [address] 2021-08-23 2021-08-23 Outpatient R JOSEPH [facility] [id number] Univers 09:30:00 09:30:00 [facility] 2021-08-02 2021-08-02 [facility] [id number] Univers 12:00:00 12:00:00 [facility] 2020-12-24 2020-12-24 Laboratory Lab, Adc Fam Pob I [facility] 1.2. [id number] Univers 15:27:51 15:47:51 Only Irina Hunter [id number] ity of [place] [id number] Florentino as Professio [phone] [address] Office Building One 2020-12-24 2020-12-24 Outpatient R JACQUELINE [facility] [id number] Univers 15:40:00 15:40:00 IRINA young [facility] 2020-08-20 2020-08-20 Telephone [facility] [id number] 00:00:00 00:00:00 [place]ong [place] [id number] [place] [id number] Professio [phone] [address] 2020-08-20 2020-08-20 Telephone [facility] [id number] Univers 00:00:00 00:00:00 Wentong [place] [id number] i ty of [place] [id number] Profess[place] [phone] Az dic[address] 2020-08-19 2020-08-19 [facility] [id number] 00:00:00 00:00:00 [place]ong [place] [id number] [place] [id number] Professio [phone] [address] 2020-08-19 2020-08-19 Telephone Joseph [facility] [id number] Univers 00:00:00 00:00:00 Blake Serrano [id number] i ty of [place] [id number] Profess[place] [phone] Az dical [facility] 220 [facility] 2020-08-09 2020-08-09 Orders Doctor NIELSEN 1.2.840.114 [id number] 00:00:00 00:00:00 Only Unassigned, DANYELL [id number] [facility] [id number] [facility] 2020-08-09 2020-08-09 Orders Doctor NIELSEN [id number] Univers 00:00:00 00:00:00 Only Unassigned, DANYELL [id number] ity of [facility] [id number] Florentino as [phone] [address] 2020-07-29 2020-07-29 Web Content Writer 2, Adc Lab [facility] 1.2.840.114 [id number] 09:40:34 09:55:34 Visit [place] [id number] [place] [id number] Professio [phone] [address] 2020-07-29 2020-07-29 Web Content Writer 2, Adc Lab [facility] [id number] [facility] 09:40:34 09:55:34 Visit Blake Jimenez [id number] ity of [place] [id number] Profess[place] [phone] Az dic[address] 2020-07-29 2020-07-29 Outpatient R [facility] [id number] Univers 09:45:00 09:45:00 ity of [facility] 2020-07-28 2020-07-28 Outpatient R [facility] [id number] Univers 09:00:00 09:00:00 ity of [facility] 2020-07-28 2020-07-28 Orders Doctor NIELSEN [id number] 00:00:00 00:00:00 Only Unassigned, DANYELL [id number] [facility] [id number] [id number] 009 2020-07-28 2020-07-28 Orders Doctor GIA [id number] Univers 00:00:00 00:00:00 Only Unassigned, DANYELL [id number] ity of [facility] [id number] Florentino as [phone] [address] 2020-07-21 2020-07-21 Office Jimenez, [facility] [id number] 13:35:42 14:12:35 Visit [facility] [id number] [place] [id number] Professio [phone] [address] 2020-07-21 2020-07-21 Office Jimenez, [facility] [id number] Univers 13:35:42 14:12:35 Visit [facility] [id number] i ty of [place] [id number] Profess[place] [phone] Me dical [address] 2020-07-21 2020-07-21 [facility] [id number] Univers 13:30:00 13:30:00 [facility] 2020-06-30 2020-06-30 [facility] [id number] Univers 10:00:00 10:00:00 [facility] 2020-06-25 2020-06-25 Letter GIA Diaz [id number] Univers 00:00:00 00:00:00 (Out) Dede CHILD [id number] it y of HOSPITAL [id number] Florentino as [phone] [facility] 019 [place] 2020-06-23 2020-06-23 Laboratory Lab, Adc Fam Pob I [facility] 1.2. 840.114 [id number] Univers 10:13:06 10:33:06 Only Anene, Ir[facility] [id number] ity of [place] [id number] Florentino as Professio [phone] [facility] 044 [place] Office Building One 2020-06-23 2020-06-23 Outpatient R [facility] [facility] [id number] Univers 10:20:00 10:20:00 ity of [facility] 2020-06-23 2020-06-23 Letter Doctor GIA 1.2.840.114 [id number] Univers 00:00:00 00:00:00 (Out) Unassigned, DANYELL 350.1.13.10 ity of [place] [facility] 4.2.7.2.686 Florentino as [phone] [facility] 044 [place] 2020-05-25 2020-05-25 Office [facility] 1.2.840.114 [id number] Univers 15:30:00 16:00:00 Visit Blake Serrano 350.1.13.10 i ty [place] [phone] [facility] [address] [facility] 2020-05-25 2020-05-25 Outpatient R JOSEPH [facility] [id number] Univers 15:30:00 15:30:00 WENTONG ity [facility] 2020-04-20 2020-04-20 [facility] [id number] Univers 00:00:00 00:00:00 Blake Serrano 350.1.13.10 i ty [place] [phone] [facility] [address] [facility] 2020-04-14 2020-04-14 Web Content Writer Teetee Ceballos Lab Main [facility] 1.2.8 40.114 [id number] Univers 12:10:22 12:25:22 Visit Blake Jimenez 350.1.13.10 ity of [place] [phone] [facility] [address] [facility] 2020-04-14 2020-04-14 Office [facility] 1.2.840.114 [id number] Univers 10:50:53 11:42:06 Visit Blake Serrano 350.1.13.10 i ty [place] [phone] [facility] [address] [facility] 2020-04-14 2020-04-14 Outpatient R JOSEPH [facility] [id number] Univers 11:00:00 11:00:00 WENTONG ity [facility] 2020-03-30 2020-03-30 [facility] [id number] Univers 15:00:00 15:00:00 WENTONG ity [facility] 2020-03-26 2020-03-26 [facility]phone [facility] [id number] Univers 00:00:00 00:00:00 Wentong Bronson 350.1.13.10 i ty [place] [phone] [address] 2020-03-22 2020-03-22 Web Content Writer 2, Adc Lab [facility] 1.2.840.114 [id number] Univers 13:04:13 13:19:13 Visit Blake Jimenez 350.1.13.10 ity of [place] [phone] [facility] [address] [facility] 2020-03-22 2020-03-22 Outpatient R [facility] [id number] Univers 13:15:00 13:15:00 ity of [facility] 2020-03-22 2020-03-22 Telephone [facility] [id number] Univers 00:00:00 00:00:00 Vickiong Bronson 350.1.13.10 i ty of [place] [phone] [address] 2020-02-25 2020-02-25 [facility] [id number] Univers 09:30:00 09:30:00 WENTONG ity [facility] 2020-02-25 2020-02-25 Telemedici [facility] 1.2.840.114 [id number] Univers 08:11:13 08:41:13 ne Visit Blake Serrano 350.1.13.10 ity of [place] [phone] Az dical nal [address] [facility] 2020-01-09 2020-01-09 Telephone Jimenez, GAMB 1.2.324.776 [id number] Univers 00:00:00 00:00:00 Wentong Bronson 350.1.13.10 i ty [place] [phone] [facility] [address] [facility] 2019-12-24 2019-12-24 Telephone Jimenez, [facility] 1.2.216.082 [id number] Univers 00:00:00 00:00:00 Wentong Bronson 350.1.13.10 i ty of [place] [phone] [facility] [address] [facility] 2019-12-19 2019-12-19 Refill Jimenez, [facility] 1.2.840.114 [id number] Univers 00:00:00 00:00:00 Wentong Bronson 350.1.13.10 i ty [place] [phone] [facility] nal [address] [place] [address] 2019-12-19 2019-12-19 Telephone Jimenez, GAMB 1.2.128.472 [id number] Univers 00:00:00 00:00:00 Wentong Bronson 350.1.13.10 i ty of [place].2.[place] [phone] [address] 2019-12-16 2019-12-16 Telephone Jimenez, [facility] 1.2.668.779 [id number] Univers 00:00:00 00:00:00 Wentong Bronson 350.1.13.10 i ty [place] [phone] [facility] [address] [facility] 2019-12-11 2019-12-11 Outpatient AMBREEN_FAR PRLAURA [facility] 739 [place] 04:50:00 04:50:00 BINDU 0210 da [facility] 2019-12-04 2019-12-04 Telephone Jimenez, [facility] 1.2.289.442 [id number] Univers 00:00:00 00:00:00 Blake Bronson 350.1.13.10 i ty of [place] [phone] Me dical nal [address] [facility] 2019-11-27 2019-11-27 Web Content Writer 2, Adc Lab [facility] 1.2.840.114 [id number] Univers 13:10:41 13:25:41 Visit Joseph Blake Serrano 350.1.13.10 ity of [place].2.[place] [phone] Me dical nal [address] [facility] 2019-11-27 2019-11-27 Orders Doctor GIA 1.2.840.114 [id number] Univers 00:00:00 00:00:00 Only Unassigned, DANYELL 350.1.13.10 ity of [place] [facility] 4.2.7.2.686 Florentino as [phone] [address] 2019-04-17 2019-04-17 CRISTIANA [facility] [id number] [place] 11:00:00 11:00:00 t; KELLI, Trauma [facility] 2019-01-23 2019-01-23 Mega CASTILLO [facility] [id number] [place] 11:00:00 11:00:00 t; Jose PEREIRA P.ABenedict PEREIRA PMayra 2018-08-28 2018-08-28 Mega ARREOLA [facility] [id number] [place] 12:45:00 12:45:00 t; LINDSEY ARREOLA, Physi Janie Silverio M.D. 2018-08-14 2018-08-14 CRISTIANA [facility] [id number] [place] 09:00:00 09:00:00 t; LINDSEY ARREOLA, Physi Janie Silverio M.D. 2018-08-07 2018-08-07 CRISTIANA Ochoa [facility] [id number] [place] 11:00:00 11:00:00 t; LINDSEY ARREOLA, Orthopedics Janie Andino M.D. 2018-07-31 2018-07-31 Appointmen TIGRE, [facility] [id number] [place] 09:15:00 09:15:00 t; LOLLY LANDEROS P hysici DANIELLE, M.D. ans M.D. 2018-05-31 2018-05-31 Appointmen HÉCTOR, [facility] Orthopedics [id number] [place] 11:00:00 11:00:00 t; JANA ANAYA at [facility] Janie BATES M.D. [facility] 2018-05-29 2018-05-29 Appointmen TIGRE, [facility] [id number] [place] 11:00:00 11:00:00 t; LOLLY LANDEROS P hysici DANIELLE, M.D. ans M.D. 2018-05-14 2018-05-14 Appointmen JONATHAN, [facility] [id number] [place] 09:30:00 09:30:00 t; Jose PEREIRA, P.A. ans KELLI, P.A. 2018-05-03 2018-05-03 Appointmen JOANTHAN, [facility] Orthopedics [id number] [place] 11:30:00 11:30:00 t; Jose PEREIRA, P.A. ans KELLI, P.A. 2018-04-17 2018-04-17 Appointmen LANDEROS, [facility] [id number] [place] 08:30:00 08:30:00 t; LOLLY LANDEROS P hysici DANIELLE, M.D. ans M.D. 2018-04-15 2018-04-15 Appointmen HÉCTOR, [facility] [id number] 2 [place] 14:45:00 14:45:00 t; JANA ANAYA Ortho and Delfino BATES M.D. Spine [facility] gomez [facility] 2018-03-04 2018-03-04 Appointmen MARCO, [facility] [id number] [place] 11:00:00 11:00:00 t; MIGUELINA LARA NP Phy sici TAMI, NP ans 2018-02-01 2018-02-01 Appointmen GUSTAVO [facility] [id number] [place] 11:15:00 11:15:00 t; CJ CHEN PA Physici DENISE, PA ans 2017-12-14 2017-12-14 [facility] GUSTAVO, UTP UTP [id number] [place] 10:30:00 10:30:00 t; CJ CHEN PA Physici DENISE, PA ans 2017-11-28 2017-11-28 Appointmen ELBA, UTP UTP [id number] [place] 14:00:00 14:00:00 t; LINDSEY ARREOLA Physi ci ANDREW, M.D. ans M.DBenedict 2017-06-20 2017-06-20 [facility] TIGRE, [facility] UTP [id number] [place] 09:30:00 09:30:00 t; LOLLY LANDEROS P hysici DANIELLE, M.D. ans M.Berta 2017-05-11 2017-05-11 [facility] PRITCHETT, [facility] UTP [id number] [place] 09:00:00 09:00:00 t; IRENE PRITCHETT M.D. Physici BINH, M.D. ans 2017-04-24 2017-04-24 [facility] TIGRE, [facility] UTP [id number] [place] 10:45:00 10:45:00 t; LOLLY LANDEROS P hysici DANIELLE, M.D. ans MTravis 2017-04-04 2017-04-04 [facility] MARINO, [facility] UTP [id number] [place] 11:00:00 11:00:00 t; Carey RICHMOND M.D. ans GABRIELA, M.D. 2017-02-27 2017-02-27 [facility] TIGRE, [facility] UTP [id number] [place] 08:45:00 08:45:00 t; LOLLY LANDEROS P hysici DANIELLE, M.D. ans MTravis 2017-02-20 2017-02-20 Appointmen LANDEROS, UTP UTP [id number] [place] 09:00:00 09:00:00 t; LOLLY LANDEROS P hysici DANIELLE, M.D. ans MTravis 2017-02-13 2017-02-13 Appointmen LANDEROS, UTP UTP [id number] [place] 08:45:00 08:45:00 t; LOLLY LANDEROS P hysici DANIELLE, M.D. ans M.Britney. 2016-12-27 2016-12-27 Appointmen ELBA, [facility] UTP [id number] [place] 12:45:00 12:45:00 t; LINDSEY ARREOLA, Physi Janie Silverio M.Berta 2016-12-20 2016-12-20 Appointmen ELBA, UTP UTP [id number] [place] 10:45:00 10:45:00 t; LINDSEY ARREOLA, Physi ci Janie PORTILLO M.Berta 2016-12-13 2016-12-13 Appointmen ELBA, UTP UTP [id number] [place] 12:30:00 12:30:00 t; LINDSEY ARREOLA Physi Janie Silverio M.Berta 2016-12-13 2016-12-13 Appointmen KATIE, [facility] UTP [id number] [place] 09:30:00 09:30:00 t; EMIR WILSON, Ph Janie Thompson M.Berta 2016-11-29 2016-11-29 Appointmen CRISTIANA LARA UTP [id number] [place] 11:30:00 11:30:00 t; MIGUELINA LARA NP Phy duane MCINTYRE NP ans 2016-11-28 2016-11-28 Appointmen CRISTIANA WEI UTP [id number] [place] 15:00:00 15:00:00 t; TAMMI WEI M.D. Physici gomez CADENA M.D. 2012-12-05 2012-12-05 Outpatient [facility] [id number] Univers 00:00:00 10:18:00 7 [facility] 2012-08-01 2012-08-01 Outpatient [facility] [id number] Univers 00:00:00 11:48:00 7 y [facility] 2012-04-26 2012-04-26 Outpatient [facility] [id number] Univers 00:00:00 11:47:00 3 [facility] 2011-11-21 2011-11-21 Outpatient [facility] [id number] Univers 00:00:00 14:02:00 6 [facility] 2011-08-08 2011-08-08 [facility] [id number] Univers 00:00:00 14:46:00 6 ity of [facility] 2011-06-08 2011-06-08 [facility] [id number] Univers 00:00:00 16:31:00 2 ity of [facility] 2011-04-19 2011-04-19 [facility] [id number] Univers 00:00:00 14:59:00 6 ity of [facility] 2011-01-25 2011-01-25 [facility] [id number] Univers 00:00:00 13:47:00 1 ity of [facility] 2010-05-31 2010-05-31 [facility] [id number] Univers 00:00:00 10:37:00 0 ity of [facility] 2010-04-12 2010-04-12 [facility] [id number] Univers 00:00:00 16:35:00 6 ity of [facility] 2010-03-31 2010-03-31 [facility] [id number] Univers 00:00:00 12:04:00 6 ity of [facility] 2010-03-03 2010-03-03 [facility] [id number] Univers 00:00:00 09:58:00 3 ity of [facility] 2010-01-24 2010-01-24 [facility] [id number] Univers 00:00:00 11:41:00 8 [facility] 2009-11-25 2009-11-25 [facility] [id number] Univers 00:00:00 11:16:00 0 [facility] 2009-10-26 2009-10-26 [facility] [id number] Univers 00:00:00 11:07:00 3 [facility] 2009-01-25 2009-01-25 [facility] [id number] Univers 00:00:00 13:04:00 6 [facility] of [facility] 2009-01-20 2009-01-20 [facility] [id number] Univers 00:00:00 14:25:00 4 ity of [facility] 2008-06-02 2008-06-02 [facility]patient [facility] [id number] Univers 00:00:00 16:42:00 0 ity of [facility] 2007-07-22 2007-07-22 Outpatient [facility] [id number] Univers 00:00:00 14:29:00 0 [facility] 2007-05-07 2007-05-07 Outpatient [facility] [id number] Univers 00:00:00 15:39:00 2 [facility] Results Test Description Test Time Test Comments Results Result Comments Source SARS-CoV-2 (COVID-19), RT-PCR/TMA 2021-11-27 15:43:57 Test Item Value Reference Range Interpretation Comme nts SARS-CoV-2 INTERPRETATION POSITIVE SEE NOTE A S ARS-CoV-2 RNA DETECTEDPositive (test code = 74382) results are indicative of the presence of CHELLE S-CoV-2 RNA;clinical co rrelation with patient history and other diagnosticinfor mation is necessary to de termine patient infection statu s.Positive results do not rule out bacterial infection or co -infectionwith other viruses. Positive and negative predic tive values oftesting are h ighly dependent on prevalence. SOURCE (test code = 00627) NASOPHARYNGEAL Note: Methodology is Free & Clearas Real-Time RT-PC R. The expected result or [...] are provided by method given in report:https:// www.[employer]/cl inicians/client -communications/ Alternatively, see downloadable PDF fact sheet at:https://www. [employer]/COVID- 19-RT-PCR UNLES S OTHERWISE INDICATED, ALL TESTING PERFORMED ATCLINICAL PATH OLOGY LABORATORIES, [facility]. [address] [place] [address] 4 FRAME ASSEMBLER: DENICE BENTON M.D. CLIA NUMBER [id number] CAP ACCREDITATION N O. [id number] 10:33:00 Test Item Value Reference Range Interpretation Comments GLUBED (test code = GLUBED) 91 MG/DL 70-105 N Novel Coronavirus 2019 [id number] 20:31:00 Test Item Value Reference Range Interpretation Comments Novel Coronavirus 2019 Inhouse (test Negative Negative code = COVNONPUI) Testing Criteria: Preprocedure [id number] 11:15:00 Test Item Value Reference Range Interpretation Comments HEMOGLOBIN (test code = HGB) 16.8 g/dL 14.5-20 N [id number] 11:15:00 Test Item Value Reference Range Interpretation Comments HEMATOCRIT (test code = HCT) 52.1 % 42.0-52.0 H BLOOD [id number] 08:01:00 Test Item Value Reference Range Interpretation Comments CULTURE (BEAKER) (test No growth in 5 days code = 1095) BLOOD [id number] 08:01:00 Test Item Value Reference Range Interpretation Comments CULTURE (BEAKER) (test No growth in 5 days code = 1095) BASIC METABOLIC [id number] 06:08:00 Test Item Value Reference Range Interpretation [...] PATIEN TS. CBC W/PLT COUNT & AUTO [id number] 07:49:00 Test Item Value Reference Range Interpretation [...] Received comment: User comments: Slide comments:BASIC METABOLIC [id number] 05:04:00 Test Item Value Reference Range Interpretation [...] PATIEN TS. CBC W/PLT COUNT & AUTO [id number] 09:25:00 Test Item Value Reference Range Interpretation [...] K/uL 0.00-0.00 H (CELLAVISION)(BEAKER) (test code = 8128) TOTAL COUNTED (BEAKER) (test code 100 = [...] WBC: SEGMENTED WITH TOXIC GRANULATIONS PRESENTBASIC METABOLIC [id number] 04:47:00 Test Item Value Reference Range Interpretation [...] DIALYSIS PATIEN TS. URINALYSIS W/ REFLEX URINE [id number] 12:15:00 Test Item Value Reference Range Interpretation [...] = 2795) CBC W/PLT COUNT & AUTO [id number] 08:39:00 Test Item Value Reference Range Interpretation [...] Received comment: User comments: Slide comments:BASIC METABOLIC [id number] 05:58:00 Test Item Value Reference Range Interpretation [...] 8.4-10.2 L (test code = 697) EGFR (BEDONNA) (test 147 mL/min/1.73 ESTIM ATED GFR IS code = 1092) sq m NOT ACCURATE CREATININE CLEARANCE IN PREDICTING GLOMERULAR FILTRATION RATE . ESTIMATED GFR I S NOT APPLICABLE FOR DIALYSIS PATIEN TS. RAD, HIP, 2 VIEWS, [id number] 01:46:00Reason for exam:->total hip arthoplasty with persistent [...] scan or MRI is recommended. Signed: Sabra Snyderort Verified Date/Time: 07/13/2019 01: 46:35 Reading Location: [address] Reading Room RAD, KNEE, 3 VIEWS, [...] MDReport Verified Date/Time: 07/13/2019 01:45:04 Reading Location: [address] Reading Room RAD, KNEE, 3 VIEWS, [id number] 01:43:00 Reason for exam:->leukocytosisFINAL REPORT CLINICAL HISTORY: [...] scan or MRI is recommended. Signed: [facility] Verified Date/Time: 07/13/2019 01:43:49 Reading Location: [address] Reading Room RAD, CHEST, 1 VIEW, NON [id number] 01:42:00Reason for exam:->leukocytosisShould this be performed at [...] MDReport Verified Date/Time: 07/13/2019 01:42:05 Reading Location: [address] Reading Room RAD, HIP, 2 VIEWS, [id number] 01:40:00Reason for exam:->total hip arthoplasty with persistent [...] MDReport Verified Date/Time: 07/13/2019 01:40:58 Reading Location: [address] Reading Room CBC W/PLT COUNT & AUTO [id number] 10:58:00 Test Item Value Reference Range Interpretation [...] 3438) Received comment: User comments: Slide comments:BLOOD [id number] 08:01:00 Test Item Value Reference Range Interpretation Comments CULTURE (BEAKER) (test No growth in 5 days code = 1095) BLOOD [id number] 08:01:00 Test Item Value Reference Range Interpretation Comments CULTURE (BEAKER) (test No growth in 5 days code = 1095) BASIC METABOLIC [id number] 05:59:00 Test Item Value Reference Range Interpretation [...] PATIEN TS. CBC W/PLT COUNT & AUTO [id number] 11:34:00 Test Item Value Reference Range Interpretation [...] = 3438) Received comment: User comments: Slide comments:[id number] 06:55:00 Test Item Value Reference Range Interpretation Comments PROCALCITONIN (BEAKER) (test code 0.61 ng/mL <0.05 H = 3036) SEPSIS RISK (ng/mL)Low: 0.05-0.50Intermediate: 0.51-2.00High: >=2.01BASIC METABOLIC [id number] 06:43:00 Test Item Value Reference Range Interpretation [...] S NOT APPLICABLE FOR DIALYSIS PATIEN TS. [id number] 06:36:00 Test Item Value Reference Range Interpretation Comments MAGNESIUM (BEAKER) (test code = 2.0 mg/dL 1.6-2.6 627) [id number] 06:36:00 Test Item Value Reference Range Interpretation Comments ALBUMIN (BEAKER) (test code = 1145) 2.3 g/dL 3.5-5.0 L CALCIUM, [id number] 05:32:00 Test Item Value Reference Range Interpretation Comments CALCIUM IONIZED (BEAKER) (test 1.09 mmol/L 1.12-1.27 L code = 698) PH, BLOOD (BEAKER) (test code = 7.42 1810) [id number] 13:34:00 Test Item Value Reference Range Interpretation Comments POTASSIUM (BEAKER) (test code = 3.6 meq/L 3.5-5.1 379) HEMOGLOBIN AND [id number] 12:50:00 Test Item Value Reference Range Interpretation Comments HEMOGLOBIN (BEAKER) (test code = 9.1 GM/DL 13.7-17.5 L 410) HEMATOCRIT (BEAKER) (test code = 29.0 % 40.1-51.0 L 411) MRSA [id number] 11:38:00 Test Item Value Reference Range Interpretation Comments CULTURE (BEAKER) (test code No MRSA isolated = 1095) POCT-GLUCOSE [id number] 06:38:00 Test Item Value Reference Range Interpretation Comments POC-GLUCOSE METER 134 mg/dL 70-110 H TESTED AT [facility] 6720 (BEAKER) (test code = WILLEM DIGGS 1538) [address] BASIC METABOLIC [id number] 05:06:00 Test Item Value Reference Range Interpretation [...] S NOT APPLICABLE FOR DIALYSIS PATIEN TS. [id number] 05:02:00 Test Item Value Reference Range Interpretation Comments MAGNESIUM (BEAKER) (test code = 2.0 mg/dL 1.6-2.6 627) CBC W/PLT COUNT & AUTO [id number] 04:53:00 Test Item Value Reference Range Interpretation [...] PERCENT (BEAKER) (test code = 2801) POCT-GLUCOSE [id number] 00:09:00 Test Item Value Reference Range Interpretation Comments POC-GLUCOSE METER 181 mg/dL 70-110 H TESTED AT [place] [address] ([facility]) (test code = [facility] 1538) [address] POCT-GLUCOSE [id number] 19:24:00 Test Item Value Reference Range Interpretation Comments POC-GLUCOSE METER 121 mg/dL 70-110 H TESTED AT [place] [address] ([facility]) (test code = [facility] 1538) [address] LACTIC ACID, [id number] 16:46:00 Test Item Value Reference Range Interpretation Comments LACTATE BLOOD VENOUS (2) (AKER) 1.9 mmol/L 0.5-2.2 (test code = 2872) HEMOGLOBIN AND [id number] 16:36:00 Test Item Value Reference Range Interpretation Comments HEMOGLOBIN (BEAKER) (test code = 8.0 GM/DL 13.7-17.5 L 410) HEMATOCRIT (BEAKER) (test code = 24.5 % 40.1-51.0 L 411) CBC W/PLT COUNT & AUTO [id number] 16:02:00 Test Item Value Reference Range Interpretation [...] 0-1 H PERCENT (BEAKER) (test code = 0371) BASIC METABOLIC [id number] 12:32:00 Test Item Value Reference Range Interpretation [...] NOT APPLICABLE FOR DIALYSIS PATIEN TS. POCT-GLUCOSE [id number] 12:08:00 Test Item Value Reference Range Interpretation Comments POC-GLUCOSE METER 175 mg/dL 70-110 H TESTED AT [facility] 6720 (BEAKER) (test code = [place] 1538) [address] HEMOGLOBIN AND [id number] 12:07:00 Test Item Value Reference Range Interpretation Comments HEMOGLOBIN (BEAKER) (test code = 8.5 GM/DL 13.7-17.5 L 410) HEMATOCRIT (BEAKER) (test code = 26.4 % 40.1-51.0 L 411) [id number] 11:16:00 Test Item Value Reference Range Interpretation Comments MAGNESIUM (BEAKER) (test code = 2.3 mg/dL 1.6-2.6 627) BASIC METABOLIC [id number] 10:18:00 Test Item Value Reference Range Interpretation [...] APPLICABLE FOR DIALYSIS PATIEN TS. VANCOMYCIN LEVEL, [id number] 10:14:00 Test Item Value Reference Range Interpretation [...] (BEAKER) (test code = 413) HEMOGLOBIN AND [id number] 08:10:00 Test Item Value Reference Range Interpretation Comments HEMOGLOBIN (BEAKER) (test code = 7.9 GM/DL 13.7-17.5 L 410) HEMATOCRIT (BEAKER) (test code = 24.3 % 40.1-51.0 L 411) POCT-GLUCOSE [id number] 05:56:00 Test Item Value Reference Range Interpretation Comments POC-GLUCOSE METER 113 mg/dL 70-110 H TESTED AT [facility] 6720 (BEAKER) (test code = [place] 1538) [address] BASIC METABOLIC [id number] 04:31:00 Test Item Value Reference Range Interpretation [...] S NOT APPLICABLE FOR DIALYSIS PATIEN TS. [id number] 04:21:00 Test Item Value Reference Range Interpretation Comments MAGNESIUM (BEAKER) (test code = 2.2 mg/dL 1.6-2.6 627) CBC W/PLT COUNT & AUTO [id number] 04:07:00 Test Item Value Reference Range Interpretation [...] PERCENT (BEAKER) (test code = 2801) CALCIUM, [id number] 04:00:00 Test Item Value Reference Range Interpretation Comments CALCIUM IONIZED (BEAKER) (test 1.04 mmol/L 1.12-1.27 L code = 698) PH, BLOOD (BEAKER) (test code = 7.40 1810) HEMOGLOBIN AND [id number] 00:26:00 Test Item Value Reference Range Interpretation Comments HEMOGLOBIN (BEAKER) (test code = 7.6 GM/DL 13.7-17.5 L 410) HEMATOCRIT (BEAKER) (test code = 23.0 % 40.1-51.0 L 411) POCT-GLUCOSE [id number] 00:20:00 Test Item Value Reference Range Interpretation Comments POC-GLUCOSE METER 117 mg/dL 70-110 H TESTED AT [facility] 67[address] (BEAKER) (test code = [place] 1538) [address] CT, [id number] 19:35:00FINAL REPORT TECHNIQUE: CT of the abdomen [...] 07/08/2019 at 7:21 PM. Signed: Gustabo Whyte [facility] Verified Date/Time: 07/08/2019 19:35:04 Reading Location: [facility] [id number] CT Body Reading Room POCT-GLUCOSE [id number] 17:58:00 Test Item Value Reference Range Interpretation Comments POC-GLUCOSE METER 121 mg/dL 70-110 H TESTED AT [facility] 67[address] ([facility]) (test code = [place] 1538 [address] HEMOGLOBIN AND [id number] 16:32:00 Test Item Value Reference Range Interpretation Comments HEMOGLOBIN ([facility]) (test code = 7.5 GM/DL 13.7-17.5 L 410) HEMATOCRIT (BEAKER) (test code = 22.9 % 40.1-51.0 L 411) POCT-GLUCOSE [id number] 12:03:00 Test Item Value Reference Range Interpretation Comments POC-GLUCOSE METER 93 mg/dL 70-110 [facility] [facility] (BEAKER) (test code = [place] [address] 1538) BASIC METABOLIC [id number] 10:27:00 Test Item Value Reference Range Interpretation [...] S NOT APPLICABLE FOR DIALYSIS PATIEN TS. [id number] 10:16:00 Test Item Value Reference Range Interpretation Comments MAGNESIUM (BEAKER) (test code = 1.4 mg/dL 1.6-2.6 L 627) CALCIUM, [id number] 09:50:00 Test Item Value Reference Range Interpretation Comments CALCIUM IONIZED (BEAKER) (test 1.06 mmol/L 1.12-1.27 L code = 698) PH, BLOOD (BEAKER) (test code = 7.47 1810) CBC W/PLT COUNT & AUTO [id number] 09:11:00 Test Item Value Reference Range Interpretation [...] 3438) Received comment: User comments: Slide comments:POCT-GLUCOSE [id number] 06:28:00 Test Item Value Reference Range Interpretation Comments POC-GLUCOSE METER 108 mg/dL 70-110 TESTED AT [facility] 6720 (BEAKER) (test code = W[place] 1538) [address] POCT-GLUCOSE [id number] 05:09:00 Test Item Value Reference Range Interpretation Comments POC-GLUCOSE METER 82 mg/dL 70-110 TESTED AT [facility] 6720 (BEAKER) (test code = WILLEM Hubbard [facility] [address] 1538) [id number] 04:07:00 Test Item Value Reference Range Interpretation Comments FERRITIN (BEAKER) (test code = 361) 154 ng/mL 5-275 BASIC METABOLIC [id number] 03:53:00 Test Item Value Reference Range Interpretation [...] APPLICABLE FOR DIALYSIS PATIEN TS. HEPATIC FUNCTION [id number] 03:51:00 Test Item Value Reference Range Interpretation [...] = 9 U/L 6-55 347) LACTIC ACID, [id number] 03:48:00 Test Item Value Reference Range Interpretation Comments LACTATE BLOOD ARTERIAL (2) 0.8 mmol/L 0.5-2.2 (BEAKER) (test code = 2874) PROTHROMBIN [id number] 03:43:00 Test Item Value Reference Range Interpretation [...] for patients wiht mechanical heart valves.HEMOGLOBIN AND [id number] 03:32:00 Test Item Value Reference Range Interpretation Comments HEMOGLOBIN (BEAKER) (test code = 8.1 GM/DL 13.7-17.5 L 410) HEMATOCRIT (BEAKER) (test code = 24.3 % 40.1-51.0 L 411) HEMOGLOBIN AND [id number] 22:53:00 Test Item Value Reference Range Interpretation Comments HEMOGLOBIN (BEAKER) (test code = 7.9 GM/DL 13.7-17.5 L 410) HEMATOCRIT (BEAKER) (test code = 23.8 % 40.1-51.0 L 411) [id number] 19:45:00 Test Item Value Reference Range Interpretation [...] 2.5-3.5 for patients wiht mechanical heart valves.POCT-GLUCOSE [id number] 19:33:00 Test Item Value Reference Range Interpretation Comments POC-GLUCOSE METER 101 mg/dL 70-110 TESTED AT [facility] 6720 (BEAKER) (test code = [place] 1538) [address] CALCIUM, [id number] 18:17:00 Test Item Value Reference Range Interpretation Comments CALCIUM IONIZED (BEAKER) (test 1.08 mmol/L 1.12-1.27 L code = 698) PH, BLOOD (BEAKER) (test code = 7.37 1810) BLOOD GAS, [id number] 18:15:00 Test Item Value Reference Range Interpretation [...] (test code = 1819) 100.0 % POTASSIUM-STAT [id number] 18:15:00 Test Item Value Reference Range Interpretation Comments POTASSIUM (BEAKER) (test code = 3.3 meq/L 3.6-5.5 L 379) GLUCOSE-STAT [id number] 18:15:00 Test Item Value Reference Range Interpretation Comments GLUCOSE RANDOM (BEAKER) (test code 138 mg/dL 70-110 H = 652) HGB/HCT (H&H) - STAT [id number] 18:15:00 Test Item Value Reference Range Interpretation Comments HEMOGLOBIN (BEAKER) (test code = 8.7 g/dL 13.0-16.8 L 410) HEMATOCRIT (BEAKER) (test code = 26.0 % 40.0-50.0 L 411) SODIUM NA-STAT [id number] 18:13:00 Test Item Value Reference Range Interpretation Comments SODIUM (BEAKER) (test code = 381) 137 meq/L 135-148 LACTIC ACID, [id number] 16:40:00 Test Item Value Reference Range Interpretation Comments LACTATE BLOOD ARTERIAL (2) 1.4 mmol/L 0.5-2.2 (BEAKER) (test code = 2874) HEMOGLOBIN AND [id number] 16:24:00 Test Item Value Reference Range Interpretation Comments HEMOGLOBIN (BEAKER) (test code = 7.5 GM/DL 13.7-17.5 L 410) HEMATOCRIT (BEAKER) (test code = 22.6 % 40.1-51.0 L 411) HGB/HCT (H&H) - STAT [id number] 15:47:00 Test Item Value Reference Range Interpretation Comments HEMOGLOBIN (BEAKER) (test code = 9.1 g/dL 13.0-16.8 L 410) HEMATOCRIT (BEAKER) (test code = 27.0 % 40.0-50.0 L 411) BLOOD GAS, [id number] 12:36:00 Test Item Value Reference Range Interpretation [...] (BEAKER) (test code = 1819) 21.0 % [id number] 12:32:00 Test Item Value Reference Range Interpretation Comments MAGNESIUM (BEAKER) 1.7 mg/dL 1.6-2.6 Specimen slightly (test code = 627) hemolyzed POTASSIUM-STAT [id number] 12:31:00 Test Item Value Reference Range Interpretation Comments POTASSIUM (BEAKER) (test code = 3.2 meq/L 3.6-5.5 L 379) HGB/HCT (H&H) - STAT [id number] 12:31:00 Test Item Value Reference Range Interpretation Comments HEMOGLOBIN (BEAKER) (test code = 9.7 g/dL 13.0-16.8 L 410) HEMATOCRIT (BEAKER) (test code = 29.0 % 40.0-50.0 L 411) GLUCOSE-STAT [id number] 12:29:00 Test Item Value Reference Range Interpretation Comments GLUCOSE RANDOM (BEAKER) (test code 100 mg/dL 70-110 = 652) SODIUM NA-STAT [id number] 12:29:00 Test Item Value Reference Range Interpretation Comments SODIUM (BEAKER) (test code = 381) 136 meq/L 135-148 POCT-GLUCOSE [id number] 11:50:00 Test Item Value Reference Range Interpretation Comments POC-GLUCOSE METER 88 mg/dL 70-110 TESTED AT [facility] 6720 (BEAKER) (test code = [place] [address] 1538) BASIC METABOLIC [id number] 09:48:00 Test Item Value Reference Range Interpretation [...] PATIEN TS. CBC W/PLT COUNT & AUTO [id number] 09:44:00 Test Item Value Reference Range Interpretation [...] after transfusion completedUser comments: Slide comments:HEPATIC FUNCTION [id number] 07:43:00 Test Item Value Reference Range Interpretation [...] code = 11 U/L 6-55 347) PROTHROMBIN [id number] 07:33:00 Test Item Value Reference Range Interpretation [...] patients wiht mechanical heart valves.VITAMIN B12 AND [id number] 07:27:00 Test Item Value Reference Range Interpretation Comments VITAMIN B12 (SIOBHAN) (test code = 290 pg/mL 213-816 774) FOLATE (SIOBHAN) (test code = 362) 11.1 ng/mL >=7.0 POCT-GLUCOSE [id number] 06:09:00 Test Item Value Reference Range Interpretation Comments POC-GLUCOSE METER 89 mg/dL 70-110 TESTED AT [facility] 6720 (SIOBHAN) (test code = WILLEM Hubbard [facility] [address] 1538) RAD, CHEST, 1 VIEW, NON [id number] 04:21:00Reason for exam:- >leucocytosisShould this be performed [...] the spine and left shoulder. Signed: Yevgeniy Chavez MDReport Verified Date/Time: 07/07/2019 04:21:36 IRON, TIBC, % SAT. (WITHOUT FERRITIN)2019-07-07 01:55:00 Test Item Value Reference Range Interpretation Comments IRON (BEAKER) (test code = 547) 72.0 ug/dL 40.0-160.0 TOTAL IRON BINDING CAPACITY 94 ug/dL 250-450 L (BEAKER) (test code = 769) IRON % SATURATION (2) (BEAKER) 77 % 20-55 H (test code = 2590) URINALYSIS WITH MICROSCOPIC IF [id number] 01:48:00 Test Item Value Reference Range Interpretation [...] = 463) SOURCE(BEAKER) (test code = 2795) [id number] 01:24:00 Test Item Value Reference Range Interpretation Comments POC-HEMOGLOBIN 5.4 g/dL 13.0-16.[address] [facility] 6720 (BEAKER) (test code = [place] [address]) [id number] AT [place] [address] [place] [address] POCT-BLOOD GASES, [id number] 01:23:00 Test Item Value Reference Range Interpretation Comments TEMP, CELSIUS-POC 36.1 (BEAKER) (test code = 1834) FIO2-POC (BEAKER) 21 TESTED AT [place] [address] (test code = 1835) [facility] [address] PH, VENOUS-POC 7.392 7.320-7.420 ([facility]) (test code = 1842) PCO2, VENOUS-POC 42.4 mm Hg 41.0-51.0 (AKER) (test code = 1843) PO2, VENOUS-POC 54.0 mm Hg 25.0-40.0 H ([facility]) (test code = 1844) SO2, VENOUS-POC 89.0 % 40.0-70.0 H ([facility]) (test code = 1845) HCO3, VENOUS-POC 26.0 meq/L 21.0-29.0 (AKER) (test code = 1846) BASE EXCESS, 1.0 meq/L -2.0-3.0 VENOUS-POC ([facility]) (test code = 1847) [id number] 01:23:00 Test Item Value Reference Range Interpretation Comments POC-SODIUM ([facility]) 141 meq/L 135-148 TESTED [place] [address] (test code = 1542) [place] [id number] 01:23:00 Test Item Value Reference Range Interpretation Comments POC-POTASSIUM 3.1 meq/L 3.6-5.5 L TESTED AT [place] [address] ([facility]) (test code [place] [address] = 1540) [id number] 01:23:00 Test Item Value Reference Range Interpretation Comments POC-GLUCOSE ([facility]) 100 mg/dL 70-110 TESTED AT [place] [address] (test code = 1855) [facility] [address] POCT-CALCIUM [id number] 01:23:00 Test Item Value Reference Range Interpretation Comments POC-CALCIUM IONIZED 1.13 mmol/L 1.12-1.27 TESTED A [place] [address] ([facility]) (test code = [facility] [address] [address] [id number] 01:23:00 Test Item Value Reference Range Interpretation Comments POC-HEMATOCRIT 16 % 40-50 L TESTED AT [place] [address] ([facility]) (test code = [place] [address] 6136) C-REACTIVE [id number] 01:07:00 Test Item Value Reference Range Interpretation Comments C-REACTIVE PROTEIN (BEAKER) (test 7.02 mg/dL 0.00-0.50 H code = 676) LACTIC ACID, [id number] 01:05:00 Test Item Value Reference Range Interpretation Comments LACTATE BLOOD VENOUS (2) (BEAKER) 1.4 mmol/L 0.5-2.2 (test code = 2872) POCT-GLUCOSE [id number] 01:02:00 Test Item Value Reference Range Interpretation Comments POC-GLUCOSE METER 125 mg/dL 70-110 H TESTED AT [facility] 6720 (BEAKER) (test code = W[place] 1538) [address] POCT-GLUCOSE [id number] 23:36:00 Test Item Value Reference Range Interpretation Comments POC-GLUCOSE METER 189 mg/dL 70-110 H TESTED AT [facility] 6720 (BEAKER) (test code = WILLE[place] 1538) [address] (CELLAVISION MANUAL DIFF)2019-07-06 21:36:00 Test Item Value [...] Received comment: User comments: Slide comments:BASIC METABOLIC [id number] 21:31:00 Test Item Value Reference Range Interpretation [...] PATIEN TS. CBC W/PLT COUNT & AUTO [id number] 21:27:00 Test Item Value Reference Range Interpretation [...] (BEAKER) (test code = 413) HEPATIC FUNCTION [id number] 21:26:00 Test Item Value Reference Range Interpretation [...] code = 11 U/L 6-55 347) PROTHROMBIN [id number] 21:18:00 Test Item Value Reference Range Interpretation [...] is 2.5-3.5 for patients wiht mechanical heart valves.[[facility]] CMP [id number] 13:50:01 Test Item Value Reference Range Interpretation Comments Sodium Level 138 {mEq/l} 135-145 (test code = 2951-2) Potassium Level 3.7 {mEq/l} 3.5-5.1 (test code = 2823-3) Chloride Level 103 {mEq/l} 95-109 (test code = 2075-0) Carbon Dioxide 27 {mEq/l} 24-32 (test code = 8-9) AGAP (test code = 11.7 {mEq/l} 10.0-20.0 18394-2) Glucose Lvl; 53 mg/dl 70-99 Adult reference range Below Low values reflect the Threshold (test clinical nate delinesof the code = 2345-7) [employer]. Creatinine Lvl 0.70 mg/dl [...] g/dl 2.7-4.2 High Threshold (test code = 74351-9) A/G Ratio; Below 0.6 0.7-1.6 Low Threshold (test code = 1759-0) Calcium Level 8.7 mg/dl 8.5-10.5 Total (test code = 52449-2) ALT (test code = 35 u/l 0-65 3-4) AST (test code = 16 u/l 0-37 21333-5) Alk Phos (test 117 u/l 39-136 code = 1783-0) Bili Total (test 0.5 mg/dl 0.2-1.3 code = 1974-) eGFR (test code = 108 The eGFR i s calculated 59740-2) {ML/MIN/1.7} using the CKD-E PI formula. In [...] be multiplied by t he estimated BMI. [facility][QL] [id number] 13:50:01 Test Item Value Reference Range Interpretation Comments Magnesium Level (test code = 2.2 mg/dl 1.8-2.4 81035-3) [facility][QLH] PHOSPHATE ( PHOSPHORUS)2019-04-17 13:50:01 Test Item Value Reference Range Interpretation Comments Phosphorus Level; Below Low 2.2 mg/dl 2.5-4.5 Threshold (test code = 2777-1) [facility][QLH] TSH, 3RD GENERATION W/REFLEX TO [id number] 13:50:01 Test Item Value Reference Range Interpretation Comments TSH (test code = 84945-8) 0.993 {uIU/ml} 0.360-3.740 [facility][QLH] PTH, INTACT (WITHOUT CALCIUM)2019-04-17 13:50:01 Test Item Value Reference Range Interpretation Comments Parathyroid Hormone Intact; Above 85.6 pg/ml 18.4-80.1 High Threshold (test code = 2731-8) [facility][QLH] VITAMIN D, 25-HYDROXY, LC/[id number] 13:50:01 Test Item Value Reference Range Interpretation Comments Vitamin D, 25-OH, 25.5 ng/ml 30.0-100.0 Reference range is based Total (test code on recommen dations in the = Vitamin D, EndocrineSociet y Clinical 25-OH, Total) Practice Guide line (J Clin Endocrinol Kqiny8187;96:19 11-1930) [facility][H] Procollagen Type I Intact N Terminal [id number] 13:50:01 Test Item Value Reference Range Interpretation Comments Procollagen Type I 52 {UG/L} 22-87 Performed At: BN Intact N Terminal Pro [facility] (test code = [address] [place] Procoll[address] Type I [address] [facility] [place] Intact N Terminal Pro) [address]Namattie Mejia MD Ph:[phone] [facility][QH] [id number] 13:35:01 Test Item Value Reference Range Interpretation Comments Calcium Level Total Cancel Reason: System (test code = 58640-2) Cancel [facility][H] Misc [id number] 13:35:01 Test Item Value Reference Range Interpretation Comments Misc [facility] (test COMMENT Test Orde red: 657050 code = Misc [facility]) C-Telop eptide, SerumC-Telopept villa, Serum 491 pg/mL ESRef erence Range:38 - 724P erformed At: HD [facility] [address] [place], [place] [id number] Kyle L MD Ph:[phone] rformed At: ES [facility] [address] [place], [place] [id number] ashley Hansen MD Ph:[phone] [facility][U] XRAY KNEE 4 OR MORE VWS BILATERAL [id number] 14:38:00 Images acquired, not reported on this accession number.[facility]
[2022-10-21] MEDS ORDERED: MORPHINE 4 MG/ML SYR ONE (11:27)
[2022-10-21] MEDS ORDERED: ONDANSETRON 4 MG/2 ML VIAL ONE (11:27)
[2022-10-21 11:31] LABS: Absolute Lymphocytes (CBC) 0.9 K/uL (0.7-4.9); Hematocrit 42.4 % (39.6-49.0); Lymphocytes % 3.6 % (15.3-44.8); MCV 93.9 fL (80-100); MPV 7.9 fL (7.6-11.3); RBC Red Blood Cell Count 4.52 M/uL (4.33-5.43)
[2022-10-21 11:42] LABS: Protime INR 1.1
[2022-10-21] MEDS ORDERED: VANCOMYCIN 1 GM/VIAL ONE ×2 (11:43→20:12)
[2022-10-21] MEDS ORDERED: PIPERACIL/TAZO 3.375 GM VIAL IV ONE (11:43)
[2022-10-21] MEDS ORDERED: NA CHLORIDE 0.9% 250 ML ONE ×2 (11:43→20:02)
[2022-10-21] MEDS ORDERED: NA CHLORIDE 0.9% 100 ML IV ONE (11:43)
--- NOTE | 2022-10-21 11:44 | ER ---
Nurse's Notes [facility] Name: Nabor Barrow Jr Age: 57 yrs Sex: Male : 1965 Arrival Date: 10/21/2022 Time: 10:51 Bed 18 Private MD: Richard Grimm Diagnosis: Cellulitis of buttock Presentation: 10/21 11:06 Chief complaint: Patient states: Abscess to L buttocks x approx 4 days, placed on ph Bactrim by Dr Grimm but no improvement, denies drainage from area, low grade fever in triage. Coronavirus screen: Vaccine status: Patient reports receiving the 2nd dose of the covid vaccine. Ebola Screen: No symptoms or risks identified at this time. Initial Sepsis Screen: Does the patient meet any 2 criteria? HR > 90 bpm. Does the patient have a suspected source of infection? Yes: Skin breakdown/wound. Risk Assessment: Do you want to hurt yourself or someone else? Patient reports no desire to harm self or others. Onset of symptoms was October 21, 2022. 11:06 Method Of Arrival: Wheelchair ph 11:06 Acuity: INNA 3 ph Triage Assessment: 11:08 General: Appears in no apparent distress. uncomfortable, Behavior is calm, cooperative. ph Pain: Complains of pain in left gluteus sue. Derm: Abscess located on left gluteus sue is tennis ball sized. Historical: - Allergies: 10:55 Aspirin; ll1 10:55 azathioprine sodium; ll1 10:55 Imuran; ll1 10:55 Lyrica; ll1 10:55 NSAIDS (Non-Steroidal Anti-Inflamma; ll1 - PMHx: 10:55 Arthritis; Chronic pain; Hypertension; Kidney stones; psoriatic arthirits; stroke 2009; ll1 - PSHx: 10:55 Left BKA; ll1 - Immunization history:: Adult Immunizations up to date. - Social history:: Smoking status: Patient denies any tobacco usage or history of. - Family history:: not pertinent. - Hospitalizations: : No recent hospitalization is reported. Screenin:08 [facility] ED Fall Risk Assessment (Adult) History of falling in the last 3 months, ph including since admission No falls in past 3 months (0 pts) Confusion or Disorientation No (0 pts) Intoxicated or Sedated No (0 pts) Impaired Gait Yes (1 pt) Mobility Assist Device Used Yes (1 pt) Altered Elimination No (0 pt) Score/Fall Risk Level 0 - 2 = Low Risk. Abuse screen: Denies threats or abuse. Denies injuries from another. Nutritional screening: No deficits noted. Tuberculosis screening: No symptoms or risk factors identified. Assessment: 11:10 General: Appears uncomfortable, Behavior is calm, cooperative, appropriate for age. ll1 Pain: Complains of pain in left gluteus sue Pain currently is 8 out of 10 on a pain scale. Quality of pain is described as aching, throbbing, Pain began 4 days ago. Neuro: Reports headache. Cardiovascular: No deficits noted. Respiratory: No deficits noted. Derm: Abscess located on left gluteus sue is Approximate baseball sized abscess to L buttock with surrounding cellulitis of entire left gluteal. No drainage st this time. 11:37 Reassessment: No changes from previously documented assessment. Patient and/or family ll1 updated on plan of care and expected duration. Pain level reassessed. 13:00 Reassessment: Patient appears in no apparent distress at this time. No changes from kb3 previously documented assessment. Patient and/or family updated on plan of care and expected duration. Pain level reassessed. General:. 15:00 Reassessment: Patient appears in no apparent distress at this time. No changes from kb3 previously documented assessment. Patient and/or family updated on plan of care and expected duration. Pain level reassessed. 18:22 Reassessment:. General: Attempted to call report. Nenita WASHBURN unavailable at this time.. kb3 18:50 Reassessment: Report given WU Gutierres, pt will be transported to Room 212 after shift aa5 change around 1915 per admitting nurse request. . Vital Signs: 11:06 BP 123 / 84; Pulse 116; Resp 18; Temp 99.5; Pulse Ox 98% on R/A; Weight 80.74 kg; ph Height 5 ft. 8 in. (172.72 cm); 12:00 BP 115 / 87; Pulse 129; Resp 20; Pulse Ox 93% ; kb3 13:00 BP 98 / 70; Pulse 114; Resp 20; Pulse Ox 95% ; kb3 14:00 BP 106 / 73; Pulse 108; Resp 20; Pulse Ox 96% ; kb3 15:00 BP 92 / 65; Pulse 101; Resp 20; Pulse Ox 94% ; kb3 16:00 BP 89 / 52; Pulse 98; Resp 20; Pulse Ox 93% ; kb3 17:00 BP 95 / 59; Pulse 103; Resp 20; Pulse Ox 96% ; kb3 18:00 BP 103 / 65; Pulse 110; Resp 20; Pulse Ox 96% ; kb3 11:06 Body Mass Index 27.06 (80.74 kg, 172.72 cm) ph ED Course: 10:51 Patient arrived in ED. mr 10:51 Richard Grimm MD is Private Physician. mr 10:55 Arm band placed on Patient placed in an exam room, on a stretcher. ll1 10:57 Freddy Whyte MD is Attending Physician. rn 11:05 Dori Sun RN is Primary Nurse. ph 11:08 Triage completed. ph 11:09 Patient has correct armband on for positive identification. Bed in low position. Call ph light in reach. Side rails up X 1. Pulse ox on. NIBP on. 11:15 Inserted saline lock: 22 gauge in right forearm, using aseptic technique. Blood ll1 collected. 11:22 Vince Ortega, RN is Primary Nurse. ll1 11:35 Second set of blood cultures drawn by wy. ll1 11:43 Ita Hernandez MD is Hospitalizing Provider. rn 12:26 Pelvis W/Cont In Process Unspecified. EDMS 12:42 SARS-COV-2 Antigen Rapid Sent. kb3 Administered Medications: 11:30 Drug: Zofran (Ondansetron) 4 mg Route: IVP; Site: right forearm; ll1 12:30 Follow up: Response: No adverse reaction kb3 11:32 Drug: morphine 4 mg Route: IVP; Infused Over: 4 mins; Site: right femoral; ll1 12:15 Follow up: Response: No adverse reaction; Pain is decreased kb3 12:42 Drug: Zosyn (piperacillin-tazobactam) 3.375 grams Route: IVPB; Infused Over: 60 mins; kb3 Site: right forearm; 13:06 Follow up: Response: No adverse reaction; IV Status: Completed infusion; IV Intake: kb3 100ml 13:06 Drug: vancoMYCIN 1 grams Route: IVPB; Infused Over: 2 hrs; Site: right forearm; kb3 15:00 Follow up: Response: No adverse reaction; IV Status: Completed infusion; IV Intake: kb3 250ml 13:10 Drug: NS 0.9% 500 ml Route: IV; Rate: bolus; Site: right forearm; kb3 14:22 Follow up: Response: No adverse reaction; IV Status: Completed infusion; IV Intake: kb3 500ml 14:22 Follow up: Response: No adverse reaction; IV Status: Completed infusion; IV Intake: kb3 500ml 13:10 Drug: fentaNYL (PF) 50 mcg Route: IVP; Site: right forearm; kb3 13:50 Follow up: Response: No adverse reaction; Pain is decreased kb3 Medication: 11:37 VIS not applicable for this client. ll1 Intake: 13:06 IV: 100ml; Total: 100ml. kb3 14:22 IV: 500ml; Total: 600ml. kb3 14:22 IV: 500ml; Total: 1100ml. kb3 15:00 IV: 250ml; Total: 1350ml. kb3 Outcome: 11:44 Decision to Hospitalize by Provider. rn 19:28 Patient left the ED. kb3 Signatures: Dispatcher [employer] EDNC Yonatan Dina PatoFreddy MD MD rn Calderon, Audri, RN RN [id number] Dori Sun, Vince Reaves RN, ph, RN RN ll1 Nerissa Soria, WU RN kb3 Corrections: (The following items were deleted from the chart) 18:54 16:00 BP 89 / 52; Pulse 98bpm; Resp 20bpm; Temp 93F; kb3 kb3
--- NOTE | 2022-10-21 11:44 | EDPHYS ---
Physician Documentation [facility] Name: Nabor Barrow Jr Age: 57 yrs Sex: Male : 1965 Arrival Date: 10/21/2022 Time: 10:51 Bed 18 Private MD: Richard Grimm ED Physician Freddy Whyte HPI: 10/21 11:08 This 57 yrs old Male presents to ER via Wheelchair with complaints of Abscess. rn 11:08 The patient presents with an abscess of the buttocks. Description: erythematous, rn fluctuant, swollen, warm. Onset: The symptoms/episode began/occurred 1 week(s) ago. Possible cause(s): unknown. Associated signs and symptoms: Pertinent positives: erythema, swelling, Pertinent negatives: fever. Modifying factors: the symptoms are alleviated by nothing, the symptoms are aggravated by pressure, sitting, touching. Severity of symptoms: At their worst the symptoms were moderate, in the emergency department the symptoms are unchanged. The patient has not experienced similar symptoms in the past. The patient has been recently seen by a physician:. Pt reports 1 week of swelling and worsening pain to left buttocks. Seen by pcp and put on abx, not working, now on day 3 of abx. . Historical: - Allergies: 10:55 Aspirin; ll1 10:55 azathioprine sodium; ll1 10:55 Imuran; ll1 10:55 Lyrica; ll1 10:55 NSAIDS (Non-Steroidal Anti-Inflamma; ll1 - PMHx: 10:55 Arthritis; Chronic pain; Hypertension; Kidney stones; psoriatic arthirits; stroke 2009; ll1 - PSHx: 10:55 Left BKA; ll1 - Immunization history:: Adult Immunizations up to date. - Social history:: Smoking status: Patient denies any tobacco usage or history of. - Family history:: not pertinent. - Hospitalizations: : No recent hospitalization is reported. ROS: 11:08 Constitutional: Negative for fever, chills, and weight loss, Cardiovascular: Negative rn for chest pain, palpitations, and edema, Respiratory: Negative for shortness of breath, cough, wheezing, and pleuritic chest pain, Abdomen/GI: Negative for abdominal pain, nausea, vomiting, diarrhea, and constipation, Back: Negative for injury and pain, MS/Extremity: Negative for injury and deformity, Skin: abscess to left buttock Neuro: Negative for headache, weakness, numbness, tingling, and seizure. Exam: 11:08 Constitutional: Awake, alert, and in no acute distress. Head/Face: Normocephalic, rn atraumatic. Cardiovascular: Tachycardic, regular Respiratory: No increased work of breathing, no retractions or nasal flaring. Abdomen/GI: soft, non-tender Skin: Warm, dry, 5 in area of fluctuance/warmth/erythema to left buttock, no head or drainage. + tender to palpation. MS/ Extremity: Pulses equal, no cyanosis. Neuro: Awake and alert, GCS 15 13:03 ECG was reviewed by the Attending Physician. rn Vital Signs: 11:06 BP 123 / 84; Pulse 116; Resp 18; Temp 99.5; Pulse Ox 98% on R/A; Weight 80.74 kg; ph Height 5 ft. 8 in. (172.72 cm); 12:00 BP 115 / 87; Pulse 129; Resp 20; Pulse Ox 93% ; kb3 13:00 BP 98 / 70; Pulse 114; Resp 20; Pulse Ox 95% ; kb3 14:00 BP 106 / 73; Pulse 108; Resp 20; Pulse Ox 96% ; kb3 15:00 BP 92 / 65; Pulse 101; Resp 20; Pulse Ox 94% ; kb3 16:00 BP 89 / 52; Pulse 98; Resp 20; Pulse Ox 93% ; kb3 17:00 BP 95 / 59; Pulse 103; Resp 20; Pulse Ox 96% ; kb3 18:00 BP 103 / 65; Pulse 110; Resp 20; Pulse Ox 96% ; kb3 11:06 Body Mass Index 27.06 (80.74 kg, 172.72 cm) ph MDM: 10:57 Patient medically screened. rn 11:43 Differential diagnosis: abscess, cellulitis. Data reviewed: vital signs, nurses notes, rn lvn test result(s), and as a result, I will admit patient. Counseling: I had a detailed discussion with the patient and/or guardian regarding: the historical points, exam findings, and any diagnostic results supporting the discharge/admit diagnosis, lab results, the need for further work-up and treatment in the hospital. Admission orders: after a detailed discussion of the patient's condition and case, the admit orders are written by me. 12/17 11:03 Order name: CBC with Diff; Complete Time: 12:32 rn 10/21 11:03 Order name: Basic Metabolic Panel; Complete Time: 12:00 rn 10/21 11:03 Order name: Protime (+inr); Complete Time: 11:49 rn 10/21 11:03 Order name: Ptt, Activated; Complete Time: 11:49 rn 10/21 11:03 Order name: Blood Culture Adult (2) rn 10/21 11:03 Order name: Lactate w/ 2H reflex if indic.; Complete Time: 12:00 rn 10/21 11:03 Order name: LFT's; Complete Time: 12:00 rn 10/21 12:12 Order name: SARS-COV-2 Antigen Rapid; Complete Time: 13:29 kj1 10/21 12:20 Order name: CBC Smear Scan; Complete Time: 12:32 EDMS 10/21 15:37 Order name: Basic Metabolic Panel EDNV 10/21 15:37 Order name: Basic Metabolic Panel EDNV 10/21 15:37 Order name: CBC with Automated Diff EDNV 10/21 15:37 Order name: CBC with Automated Diff EDMS 10/21 15:37 Order name: Protime (+INR) EDNV 10/21 11:03 Order name: IV Start; Complete Time: 11:23 rn 10/21 11:03 Order name: EKG; Complete Time: 11:04 rn 10/21 11:57 Order name: Pelvis W/Cont; Complete Time: 12:49 EDMS 10/21 15:37 Order name: CONS Physician Consult EDNV 10/21 15:37 Order name: 60g Consistent Carbohydrate (ADA 1800/2000) EDNV 10/21 15:37 Order name: NPO EDNV 10/21 15:37 Order name: Protime (+INR) EDNV 10/21 15:37 Order name: PTT, Activated Partial Thromb EDMS 10/21 15:37 Order name: PTT, Activated Partial Thromb EDMS 10/21 11:03 Order name: EKG - Nurse/Tech; Complete Time: 11:23 rn 10/21 11:04 Order name: Cardiac monitoring; Complete Time: 11:23 rn 10/21 11:04 Order name: O2 Sat Monitoring; Complete Time: 11:23 rn EC:03 Rate is 114 beats/min. Rhythm is regular. QRS [place] is Normal. NM interval is normal. rn QRS interval is normal. QT interval is normal. No Q waves. T waves are Normal. No ST changes noted. Clinical impression: Sinus tachycardia. Interpreted by me. Reviewed by me. Administered Medications: 11:30 Drug: Zofran (Ondansetron) 4 mg Route: IVP; Site: right forearm; ll1 12:30 Follow up: Response: No adverse reaction kb3 11:32 Drug: morphine 4 mg Route: IVP; Infused Over: 4 mins; Site: right femoral; ll1 12:15 Follow up: Response: No adverse reaction; Pain is decreased kb3 12:42 Drug: Zosyn (piperacillin-tazobactam) 3.375 grams Route: IVPB; Infused Over: 60 mins; kb3 Site: right forearm; 13:06 Follow up: Response: No adverse reaction; IV Status: Completed infusion; IV Intake: kb3 100ml 13:06 Drug: vancoMYCIN 1 grams Route: IVPB; Infused Over: 2 hrs; Site: right forearm; kb3 15:00 Follow up: Response: No adverse reaction; IV Status: Completed infusion; IV Intake: kb3 250ml 13:10 Drug: NS 0.9% 500 ml Route: IV; Rate: bolus; Site: right forearm; kb3 14:22 Follow up: Response: No adverse reaction; IV Status: Completed infusion; IV Intake: kb3 500ml 14:22 Follow up: Response: No adverse reaction; IV Status: Completed infusion; IV Intake: kb3 500ml 13:10 Drug: fentaNYL (PF) 50 mcg Route: IVP; Site: right forearm; kb3 13:50 Follow up: Response: No adverse reaction; Pain is decreased kb3 Disposition Summary: 10/21/22 11:44 Hospitalization Ordered Hospitalization Status: Inpatient Admission rn Provider: Ita Hernandez rn Location: Telemetry/MedSurg (Inpatient) rn Condition: Stable rn Problem: new rn Symptoms: have worsened rn Bed/Room Type: Standard rn Room Assignment: 212(10/21/22 16:28) eb Diagnosis - Cellulitis of buttock rn Forms: - Medication Reconciliation Form rn - SBAR form rn Signatures: Dispatcher [employer] Freddy Rose MD MD rn Botello, Elizabeth eb Lewis, Lynsay, RN RN ll1 Nerissa Soria RN RN kb3 Corrections: (The following items were deleted from the chart) 11:44 11:07 Pelvis Wo Cont+CT.RAD.BRZ ordered. EDMS EDMS 12:51 11:44 Cutaneous abscess of buttock rn rn 13:35 11:44 rn eb 13:35 13:35 229 eb eb 16:28 13:35 eb eb
[2022-10-21 11:50] LABS: Albumin 2.9 g/dL (3.4-5.0); Bilirubin Direct 0.2 mg/dL (0-0.2); Bilirubin Total 0.5 mg/dL (0.2-1.0); Potassium 3.8 mmol/L (3.5-5.1); Protein, Total 7.9 g/dL (6.4-8.2)
[2022-10-21 12:18] LABS: Platelet Estimate ADEQ; Toxic Granulation 1+; White Blood Cell Scan OK (OK)
[2022-10-21 12:19] LABS: Blood Morphology Comment NOT SEEN (NOT SEEN)
--- NOTE | 2022-10-21 12:41 | RAD REPORT ---
EXAM DESCRIPTION: CT - Pelvis W/Cont - 10/21/2022 12:24 pm CLINICAL HISTORY: Pelvic pain/abscess COMPARISON: None. TECHNIQUE: Computed axial tomography of the pelvis was obtained. 50 cc Isovue-[address] scans are performed using dose optimization technique as appropriate and may include automated exposure control or mA/KV adjustment according to patient size. FINDINGS: Artifact from bilateral hip prostheses obscures detail lower pelvis somewhat. Ill-defined increased density is present within the subcutaneous tissues posterior left buttocks. A d iscrete fluid-filled abscess is not visualized. Moderate amount stool is present within the rectum. No ascites IMPRESSION: Ill-defined increased density subcutaneous tissues posterior left buttocks compatible wi th cellulitis. A discrete fluid-filled abscess is not visualized. Ultrasound may be helpful for further evaluation
[2022-10-21] MEDS ORDERED: FENTANYL CITR 100 MCG/2 ML ONE (13:11)
[2022-10-21] MEDS ORDERED: NA CHLORIDE 0.9% 500 ML ONE (13:11)
[2022-10-21 13:15] LABS: SARS-CoV-2 Antigen Rapid Res Negative (Negative)
[2022-10-21] MEDS ORDERED: ACETAMINOPHEN 500 MG TAB PO PRN (15:33)
[2022-10-21] MEDS ORDERED: ONDANSETRON 4 MG/2 ML VIAL IV PRN (15:33)
[2022-10-21] MEDS ORDERED: NA CHLORIDE 0.9% 100 ML ONE (20:02)
[2022-10-21] MEDS ORDERED: AMPICILLIN/SULBACTAM 3GM/VIAL ONE (20:11)
[2022-10-21] MEDS: MORPHINE 2 MG/ML SYR IV PRN (20:14)
[2022-10-21] MEDS: AMPICILLIN/SULBACT 3 GM in NA CHLORIDE 0.9% 100 ML IVPB SCH (20:15)
[2022-10-21] MEDS: NA CHLORIDE 0.9% 1,000 ML IV SCH (20:15)
[2022-10-21 20:48] VITALS: BMI 23.8
[2022-10-21] MEDS: VANCOMYCIN 1 GM in NA CHLORIDE 0.9% 250 ML IVPB SCH (22:48)
[2022-10-22] MEDS: MORPHINE 2 MG/ML SYR IV PRN ×4 (00:59→13:31)
[2022-10-22] MEDS: AMPICILLIN/SULBACT 3 GM in NA CHLORIDE 0.9% 100 ML IVPB SCH ×3 (01:00→11:19)
[2022-10-22] MEDS: VANCOMYCIN 1 GM in NA CHLORIDE 0.9% 250 ML IVPB SCH (04:00)
[2022-10-22 04:12] LABS: Protime INR 1.12
[2022-10-22 04:13] LABS: Hematocrit 34.9 % (39.6-49.0); MCV 94.5 fL (80-100); MPV 7.8 fL (7.6-11.3); RBC Red Blood Cell Count 3.69 M/uL (4.33-5.43)
[2022-10-22 04:28] LABS: Potassium 3.8 mmol/L (3.5-5.1)
[2022-10-22] MEDS ORDERED: NA CHLORIDE 0.9% 250 ML ONE (05:12)
[2022-10-22] MEDS ORDERED: VANCOMYCIN 1 GM/VIAL ONE (05:13)
[2022-10-22] MEDS: GABAPENTIN 400 MG CAP PO SCH ×3 (05:15→17:07)
[2022-10-22] MEDS: NA CHLORIDE 0.9% 1,000 ML IV SCH ×2 (05:20→15:04)
[2022-10-22] MEDS ORDERED: predniSONE 5 MG TAB PO SCH (09:00)
[2022-10-22] MEDS ORDERED: HYDROCORTISONE SUC 100 MG INJ IV ONE (11:00)
[2022-10-22] MEDS ORDERED: PNEUMOCOCCAL VACCINE 0.5 ML IMVAC ONE (11:00)
[2022-10-22] MEDS ORDERED: NA CHLORIDE 0.9% 0 ML ONE (15:06)
[2022-10-22] MEDS ORDERED: VANCOMYCIN 1.25 GM in NA CHLORIDE 0.9% 250 ML IVPB SCH (16:00)
--- NOTE | 2022-10-22 16:28 | P.CNS ---
Date of Consult: 10/22/22 PC: This 57-year-old male presented to the emergency room with pain and discomfort in his left buttock. HPC: Patient has noticed pain and discomfort as well as bowel temperature at home. Saw his primary care physician a few days ago. Was placed on oral antibiotics, but the area is getting firmer causing increasing pain and discomfo rt and he can no longer stand it. PSHx: Previous surgeries include left BKA. PMHx: Strokes, peripheral vascular disease, psoriatic arthritis. Social Hx: Azathioprine, pregabalin, aspirin Sys R: No cough, wheeze, shortness of breath. No chest pain or palpitations. States she is actually doing pretty well at home. O/E: Awake alert vital signs are stable, uncomfortable at the moment complaining of pain in his left buttock. HEENT: Negative Chest: Chest movement equal bilaterally Abd: Negative [place]: On the left buttock while it is soft there remains an area that is about the size of a golf ball on his left buttock. This is tender to the touch. Consistent with a abscess developing although not clearly demarcated on CT. Data: CT scan suggest possible early abscess formation in the left buttock Impression: Abscess of the left buttock Plan: I will taken the operating room for a incision, drainage, sharp debridement of abscess of the left buttock. The risks of this procedure have been discussed. The possibility of bleeding, infection, recurrence and progression of the infection were explained. He understands and wants to proceed.
[2022-10-22] MEDS ORDERED: propofoL 200 MG/20 ML VIAL IV ONE (16:58)
[2022-10-22] MEDS ORDERED: MIDAZOLAM HCL 2 MG/2 ML INJ ONE (16:58)
[2022-10-22] MEDS ORDERED: FENTANYL CITR 100 MCG/2 ML ONE ×2 (16:58→17:42)
--- NOTE | 2022-10-22 17:26 | P.OP ---
Preoperative diagnosis: Abscess of the left buttock Postoperative diagnosis: The same Primary procedure: Incision, drainage, sharp debridement of abscess of the left buttock Anesthesia: General Estimated blood loss: Less than 15 cc Specimen: None sent Operative Technique: The patient brought the operating room and placed supine on the table. After the induction of adequate general endotracheal anesthesia, the patient was rolled into the right recovery position. The area of the buttock was prepped and draped. Over the area of maximum fluctuance approximately 7 cc of Marcaine was injected into this abscess area. Using electrocautery above the the skin incision was made. We encountered a lot of old blood and this abscess cavity. No mirtha pus however was seen. The area was sharply debrided with a 11 blade and a cutting surgical curette. Having got back to clean tissue, a #2 nylon was now placed into the wound and brought out superiorly. The suture was then tied on itself to keep it open and draining during the postoperative period. At the end of the procedure the patient was in a stable condition was sent to the recovery room. Needle sponge instrument count were correct. A #2 nylon was used as a drain. Drain(s): Other (#2 nylon) Transferred to: Recovery Room Condition: Good
[2022-10-22] MEDS: KETOROLAC 30 MG/ML INJ ONE ×2 (17:50→17:55)
[2022-10-22] MEDS ORDERED: VANCOMYCIN 1 GM in NA CHLORIDE 0.9% 250 ML IVPB SCH (20:00)
[2022-10-22] MEDS ORDERED: GABAPENTIN 400 MG CAP PO PRN (20:20)
[2022-10-22] MEDS: MORPHINE 4 MG/ML SYR IV PRN (20:24)
[2022-10-22] MEDS: predniSONE 5 MG TAB PO SCH (20:31)
[2022-10-22] MEDS ORDERED: NA CHLORIDE 0.9% 1,000 ML IV SCH (21:00)
[2022-10-22] MEDS ORDERED: HYDROCORTISONE SUC 100 MG INJ IV SCH (21:00)
[2022-10-22] MEDS: VANCOMYCIN 1.25 GM in NA CHLORIDE 0.9% 250 ML IVPB SCH (21:00)
[2022-10-22 22:42] VITALS: O2SAT 94
[2022-10-23] MEDS: MORPHINE 4 MG/ML SYR IV PRN ×3 (01:32→10:33)
[2022-10-23] MEDS: AMPICILLIN/SULBACT 3 GM in NA CHLORIDE 0.9% 100 ML IVPB SCH ×2 (01:33→07:59)
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
--- NOTE | 2022-10-23 07:28 | P.PN ---
Subjective Date of Service: 10/22/22 Subjective: No new changes, No C/O voiced Review of Systems 10-point ROS is otherwise unremarkable Physical Examination - Vital Signs Temperature: 97.1 F Blood Pressure: 110/57 Pulse: 90 Respirations: 18 Pulse Ox (%): 98 - Physical Exam General: Alert, In no apparent distress, Oriented x3 Respiratory: Clear to auscultation bilaterally, Normal air movement Cardiovascular: Regular rate/rhythm, Normal S1 S2 Gastrointestinal: Normal bowel sounds, Soft and benign, Non-distended, No tenderness Musculoskeletal: Tenderness Integumentary: Tenderness/swelling, Erythema Neurological: Sensation intact, Cranial nerves 3-12 intact, Abnormal strength - Studies Medications List Reviewed: Yes Assessment & Plan - Problems (Diagnosis) (1) Abscess of buttock Current Visit: Yes Status: Acute (2) Chronic back pain Onset Date: 09/22/16 Current Visit: No Status: Chronic (3) Chronic use of steroids Onset Date: 06/05/16 Current Visit: No Status: Chronic (4) Diabetes mellitus Onset Date: 09/22/16 Current Visit: No Status: Chronic Qualifiers: (5) History of - hypertension Current Visit: No Status: Chronic (6) History of stroke Current Visit: No Status: Chronic (7) Hypertension Onset Date: 06/05/16 Current Visit: No Status: Chronic (8) Psoriatic arthropathy Onset Date: 06/05/16 Current Visit: No Status: Chronic - Plan Continue with plan of care as mentioned below: 1. Continue with IV antibiotic 2. Continue with local wound care 3. Wound care consultation/surgical consultation 4. Gentle IV hydration 5. Monitor CBC 6. Strict blood sugar monitoring 7. Pain control 8. IV steroids 9. GI and DVT prophylaxis Discharge Plan: Home Plan to discharge in: Greater than 2 days - Advance Directives Does patient have a Living Will: No Does patient have a Durable POA for Healthcare: No - Code Status/Comfort Care Code Status: Full Code Critical Care: No Time Spent Managing PTS Care (In Minutes): 35
[2022-10-23] MEDS: predniSONE 5 MG TAB PO SCH (07:58)
[2022-10-23 08:03] LABS: Absolute Lymphocytes (CBC) 1.1 K/uL (0.7-4.9); Hematocrit 32.9 % (39.6-49.0); Lymphocytes % 6.8 % (15.3-44.8); MCV 94.8 fL (80-100); MPV 7.6 fL (7.6-11.3); RBC Red Blood Cell Count 3.47 M/uL (4.33-5.43)
[2022-10-23] MEDS: VANCOMYCIN 1.25 GM in NA CHLORIDE 0.9% 250 ML IVPB SCH (09:34)
[2022-10-23 09:37] LABS: Blood Morphology Comment NOT SEEN (NOT SEEN); Platelet Estimate ADEQ; Platelets, Giant 1+
[2022-10-23 12:02] VITALS: BP 122/70; TEMP 97.5
--- NOTE | 2022-10-23 12:11 | P.DS ---
Admission Date: 10/21/22 Discharge Date: 10/23/22 Disposition: DC HOME/HOME HEALTH CARE Discharge Condition: GOOD Reason for Admission: Psoriatic arthritis/buttocks abscess Consultations: 1. General Surgery 2. Infectious Diseases Procedures: - 10/22/2022 - Incision, Drainage, & Sharp Debridement of Left Buttock Abscess Hospital Course: DIAGNOSES: # Sepsis secondary to Left Buttock Cellulitis with Abscess s/p I&D # Type II Diabetes Mellitus # Hypertension # Psoriatic Arthropathy # History of Cerebrovascular Accident HOSPITAL COURSE: Mr. Nabor Barrow is a pleasant 57 year old male with a past medical history significant for type II diabetes mellitus, hypertension, psoriatic arthropathy, and prior cerebrovascular accident who was admitted to the [facility] on 10/21/2022 for buttock cellulitis. He was admitted to the Medicine service. A CT pelvis revealed, "ill-defined increased density subcutaneous tissues posterior left buttocks compatible with cellulitis." General Surgery was consulted and he was evaluated by Dr. Pavon. He underwent incision, drainage, and sharp debridement of abscess, without any issues. He did well post-operatively and stated that he would like to be discharged home. I spoke with Dr. Pavon, who has cleared him for discharge from his standpoint as long as the suture is removed in clinic on 10/26/2022. Infectious Diseases was consulted and I spoke with Dr. Calles. He has cleared him for discharge with 10 days of amoxicillin-clavulanate and outpatient wound care follow-up. With the assistance of case management, Home Health was arranged. I have spoken with his PCP, Dr. Grimm, who will assist in arranging outpatient follow-up. On 10/23/2022, he was seen on morning rounds and deemed medically stable for discharge. He was discharged with instructions to schedule follow-up appointments with his PCP (Dr. Grimm) and with General Surgery (Dr. Pavon). He was provided a prescription for amoxicillin-clavulanate. He was given the opportunity to ask questions and reported no further questions. Furthermore, all questions were answered to the best of my ability. A copy of this discharge summary will be sent to the above providers to facilitate continuity of care. Today, I personally spent 25 minutes on his case, of which greater than 50% of the time was spent in patient education, counseling, and coordination of care as described above. Vital Signs/Physical Exam: Temp Pulse Resp BP Pulse Ox 97.5 F 77 16 122/70 97 10/23/22 12:00 10/23/22 12:00 10/23/22 12:00 10/23/22 12:00 10/23/22 12:00 General: Alert, In no apparent distress, Oriented x3 HEENT: Atraumatic, PERRLA, Mucous membr. moist/pink, EOMI, Sclerae nonicteric Neck: JVD not distended Respiratory: Clear to auscultation bilaterally, Normal air movement Cardiovascular: No edema, Regular rate/rhythm, Normal S1 S2, No gallops, No rubs, No murmurs Gastrointestinal: Normal bowel sounds, Soft and benign, Non-distended, No tenderness, No rebound, No guarding Musculoskeletal: No clubbing Integumentary: Other (examined alongside bedside RN (Juani) - surgical site is clean, dry, and intact) Neurological: Normal speech, Cranial nerves 3-12 intact, Normal affect Laboratory Data at Discharge: WBC 16.40 K/uL (4.3-10.9) H 10/23/22 07:50 Hgb 10.9 g/dL (13.6-17.9) L 10/23/22 07:50 Hct 32.9 % (39.6-49.0) L 10/23/22 07:50 Plt Count 376 K/uL (152-406) 10/23/22 07:50 PT 12.3 SECONDS (9.5-12.5) 10/22/22 03:34 INR 1.12 10/22/22 03:34 APTT 29.6 SECONDS (24.3-36.9) 10/22/22 03:34 Sodium 140 mmol/L (136-145) 10/22/22 03:34 Potassium 3.8 mmol/L (3.5-5.1) 10/22/22 03:34 BUN 7 mg/dL (7-18) 10/22/22 03:34 Creatinine 0.55 mg/dL (0.70-1.30) L 10/22/22 03:34 Glucose 83 mg/dL (74-106) 10/22/22 03:34 Total Bilirubin 0.5 mg/dL (0.2-1.0) 10/21/22 11:15 AST 19 U/L (15-37) 10/21/22 11:15 ALT 31 U/L (16-61) 10/21/22 11:15 Alkaline Phosphatase 101 U/L (45-117) 10/21/22 11:15 Home Medications: Esomeprazole Mag Trihydrate [Nexium] 40 mg PO SEECOM 06/07/19 Gabapentin [Neurontin] 800 mg PO Q6H 06/07/19 predniSONE [Prednisone] 5 mg PO BID 06/07/19 Hydrocodone 7.5/APAP 325 [[place] 7.5/325 mg*] 1 tab PO Q8HP PRN 10/21/22 Amox/Clavulanate [Augmentin 875-125 Tab*] 875 mg PO BID 10 Days #20 tab 10/23/22 New Medications: Amox/Clavulanate [Augmentin 875-125 Tab*] 875 mg PO BID 10 Days #20 tab Physician Discharge Instructions: 1. Please call and schedule a follow-up appointment with your PCP (Dr. Grimm) in 3-5 days - You will need to have the suture from your wound removed on 10/26/2022 2. Please call and schedule a follow-up appointment with Dr. Pavon in the Wound Clinic in 3-5 days Diet: ADA Activity: Fall precautions Followup: Richard Grimm MD [Primary Care Provider] - (follow up in 3-5 days ) Alfonso Pavon MD [ACTIVE - CAN ADMIT] - (Follow up in 3-5 days ) Time spent managing pt's care (in minutes): 25
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
[2022-10-23] MEDS ORDERED: AMOX/K CLAV 875 MG TAB PO SCH (21:00)
--- NOTE | 2022-10-24 15:20 | EKG ---
Test Date: 2022-10-21 Test Time: 11:07:39 Sign Erector: ELEAZAR MEASUREMENT RESULTS: Intervals: Rate: 114 LA: 134 QRSD: 138 QT: 364 QTc: 501 [place]: P: 25 LA: 134 QRS: 247 T: 10 INTERPRETIVE STATEMENTS: Sinus tachycardia Right bundle branch block Possible Lateral infarct, age undetermined Abnormal ECG Compared to ECG 04/17/2022 11:50:43 Sinus rhythm no longer present Left anterior fascicular block no longer present Bifascicular block no longer present Left ventricular hypertrophy no longer present Myocardial infarct finding still present Electronically Signed On 10-24-22 15:16:55 PAGE TECHNICIAN by Marvin Nova
== END 2022-10-23 13:45 | disposition home health service (06) | DRG 854 ==
LOC: ER 10:47 → ERHOLD 15:33 → 2ND 17:39
PROVIDERS: ADMIT Hospitalist; ATTEND Internal Medicine
PROC: 0JB90ZZ Excision of Buttock Subcutaneous Tissue and Fascia, Open Approach (ICD-10-PCS; principal; 2022-10-22 16:30)
DX: A41.9 Sepsis, unspecified organism (principal); E44.0 Moderate protein-calorie malnutrition; L02.31 Cutaneous abscess of buttock; L03.317 Cellulitis of buttock; E11.9 Type 2 diabetes mellitus without complications; I10 Essential (primary) hypertension; L40.50 Arthropathic psoriasis, unspecified; G89.29 Other chronic pain; M54.9 Dorsalgia, unspecified; Z88.6 Allergy status to analgesic agent; Z88.8 Allergy status to other drugs, medicaments and biological substances; Z68.23 Body mass index [BMI] 23.0-23.9, adult; Z79.52 Long term (current) use of systemic steroids; Z74.01 Bed confinement status; Z86.73 Personal history of transient ischemic attack (TIA), and cerebral infarction without residual deficits; Z89.512 Acquired absence of left leg below knee; Z96.643 Presence of artificial hip joint, bilateral; Z96.653 Presence of artificial knee joint, bilateral; Z79.899 Other long term (current) drug therapy; Z20.822 Contact with and (suspected) exposure to COVID-19
CPT/HCPCS: 36415; 72193; 80048; 80076; 83605; 85025; 85610; 85730; 87040; 87811; 93005; 99284; J0295; J1720; J2250; J2270; J2405; J2543; J2704; J3010; J3370; J7030; J7040; J7050; J7512; Q9967